=== PATIENT | female | born 1950 | race Caucasian/White ===

== ENCOUNTER → 2016-11-28 | Outpatient (CLI) | payer OTHER ==
[~2016-11-28] MED LIST: ACET160S78 PO; ACET1LIQ6 PO; ALBUAER2 INH; ALUM-30 PO; ALUMSUS PO; ARTISOL12 OPB; ASPCH81 NG; ASPCH81X PO; ASPI-390 PO; ATOR-24 PO; BENA PO; BISA10SU38 PR; BISM262S7 PO; BUSP15TA70 PO; CARAFATE PO; CRFL PO; DIPHEN PO; DULCOLAX SUPP RE; FOLI1TAB7 PO; FRS/40 PO; GUAI100S75 PO; LEVA1.255 INH; LEVO137T3 PO; LIDO PO; LORA-741 PO; LPR25 PO; LPT40 PO; MAALOX PO; METO25TA56 PO; MINTOX PO; MOMLX PO; OXYC1TAB3 PO; POLY1SOL6 OP; PRED20TA PO; PRLSR20 PO; RBTUDL5 PO; SIME80CH PO; SYN88 PO; VENL75CA73 PO; VNTHFA/IN INH; XPNINS125 NEB; ZNTT/150 PO; [UNRECOGNIZED DRUG - CODE] INH; [UNRECOGNIZED DRUG - CODE] NEB; [UNRECOGNIZED DRUG - OTHER] PO
[2016-11-28 09:05] LABS: THYROID STIMULATING HORMONE 3.5 uIu/ml (0.300-4.500)
== END ==
LOC: C.LABCC 08:30
PROVIDERS: ATTEND Internal Medicine
DX: E03.9 Hypothyroidism, unspecified (principal)

== ENCOUNTER → 2017-01-10 | Outpatient (CLI) | payer OTHER ==
[2017-01-10 09:21] LABS: THYROID STIMULATING HORMONE 0.879 uIu/ml (0.300-4.500)
== END ==
LOC: C.LABCC 08:11
PROVIDERS: ATTEND Internal Medicine
DX: E03.9 Hypothyroidism, unspecified (principal)

== ENCOUNTER → 2017-02-07 | Outpatient (CLI) | payer OTHER | LOC: C.LABCC 12:35 | PROVIDERS: ATTEND Internal Medicine | DX: R09.3 Abnormal sputum (principal) ==

== ENCOUNTER → 2017-02-23 | Outpatient (CLI) | payer OTHER ==
--- NOTE | 2017-02-23 09:21 | DIAGNOSTIC IMAGING REPORT ---
CT NECK WITHOUT INTRAVENOUS CONTRAST HISTORY: LARYNGEAL CANCER TECHNIQUE: Multiaxial CT images of the neck were performed without the use of intravenous contrast. COMPARISON STUDY: Neck CT 12/01/2008. FINDINGS: Near nondiagnostic evaluation of the neck due to the metallic artifact, motion artifact, and noncontrast examination. The patient is status post a laryngectomy. Multiple scattered metallic densities/surgical clips seen throughout the neck. No definite soft tissue masses or significant lymphadenopathy. There is a small plug at the tracheostomy site which is located between the soft tissues of proximal esophagus and roof of the tracheostomy. There is a potential small fistula between the tracheostomy and proximal esophagus due to this plug. No suspicious lytic or blastic osseous lesions. Mild mucosal thickening within the right max a sinus. The mastoid air cells are clear. There is a punctate calcified granuloma within the left lung apex. Emphysema. The visualized brain parenchyma is unremarkable. The orbits are unremarkable. Pterygopalatine fossa are well-maintained. Prevertebral soft tissues are normal in thickness. The parotid glands are symmetric. tube is IMPRESSION: 1. Near nondiagnostic evaluation of the neck due to the metallic artifact, motion artifact, noncontrast examination. However, no evidence for lymphadenopathy or soft tissue mass. 2. Status post laryngectomy. 3. There is a small plug at the roof of the proximal tracheostomy opening which is located between the soft tissues of the proximal esophagus and tracheostomy. 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 Clinical correlation recommended. Electronically signed by: Brennan Naik M.D. 02/23/2017 2:06 PM Dictated Date/Time: 02/23/2017 9:02 AM
== END | disposition home or self-care (01) ==
LOC: C.CTS 07:51
PROVIDERS: ATTEND Physician Assistant
DX: C32.9 Malignant neoplasm of larynx, unspecified (principal)

== ENCOUNTER → 2017-02-28 | Day surgery (SDC) | payer OTHER ==
--- NOTE | 2017-02-27 18:28 | HISTORY & PHYSICAL EXAMINATION ---
DATE OF ADMISSION: 02/28/2017 PRIMARY CARE PHYSICIAN: Lizandro Xiong. REASON FOR BRONCHOSCOPY: Persistent cough and abnormal CAT scan in the setting of history of laryngeal cancer. HISTORY OF PRESENT ILLNESS: A 66-year-old female followed in the office, was evaluated on 02/16/2017 for symptoms of increased cough, dyspnea, and blood from her stoma. The patient had initially been evaluated in the office in January 2008 following a history of pneumonia, diagnosis of COPD, and history of abnormal lung mass with hilar adenopathy on recent CAT scan. Bronchoscopy was performed in February 2008 with negative cytology. She had been following with her ENT physician, Dr. Chandra for tracheostomy care status post laryngotomy and radiation therapy secondary to squamous cell carcinoma of the larynx. The patient has undergone multiple bronchoscopies in the past. In March 2015, she was admitted with respiratory failure undergoing respiratory arrest requiring CPR and ICU stay with inpatient bronchoscopy and sputum positive for staph and group B strep. She was most recently admitted in late fall of 2015 with bronchoscopy notable for lavage of mucus plugs, laryngeal assist device as well as Luisa. In the outpatient office, the patient presented with a 1-2 week history of increased mucus production. She reported sputum was thick and green in nature and associated with increased dyspnea without wheeze or chest tightness. Additionally, she reported bright red blood in small quantities mixed with her sputum as well as pain and discomfort in her neck in the tissues surrounding her stoma. On 02/15/2017, she described intermittent episodes of diaphoresis, alternating with chills. She was prescribed doxycycline secondary to recent sputum culture on 02/09/2017, which was positive for MSSA staph. Chest x-ray from 02/02/2017 was unremarkable. She has not seen Dr. Chandra in quite some time. CT on 08/29/2016: Severe pulmonary emphysema Tracheomalacia. Lower lobe pulmonary airspace opacities with bilateral lower lobe air bronchograms. Barium swallow on 09/08/2016: Negative for reflux with moderate focal narrowing in the proximal esophagus, which was unchanged. PAST MEDICAL HISTORY: 1. Squamous cell carcinoma of the larynx, status post radiation and laryngectomy with Dr. Chandra on November 2008. 2. History of alcohol abuse. 3. COPD. 4. History of acute respiratory failure. 5. Hyperlipidemia. 6. Depression. 7. History of breast cancer status post surgery in 2005. 8. Hypothyroid. 9. History of right-sided pleural effusion. 10. Osteoarthritis. 11. Anemia. PAST SURGICAL HISTORY: 1. Bronchoscopy. 2. Laryngectomy. 3. section. 4. Radical neck dissection with tracheostomy. FAMILY HISTORY: 1. Hyperlipidemia. 2. Malignant neoplasm. SOCIAL HISTORY: 1. Former tobacco abuse. 2. Former alcohol abuse. CURRENT MEDICATIONS: 1. Aspirin 81 mg oral tablet: Take 1 tablet daily. 2. Saline solution 7%: Use 1 vial in the nebulizer daily as needed for congestion. 3. Levalbuterol hydrochloride 1.25 mg per 3 mL inhalation nebulizer solution: Inhale 1 unit dose every 6 hours as needed. 4. Spiriva 2.5 mcg/ACT inhalation aerosol solution: Inhale 2 puffs once daily. 5. Bisacodyl 10 mg rectal suppository: Use as directed. 6. Cepacol lozenge: Allow 1 lozenge dissolved slowly in mouth as directed. 7. Robitussin-AC at nighttime cough DM 12.5/30 mg per 10 mL oral liquid: Take 5 mL 4 times daily as directed. 8. Buspirone hydrochloride 10 mg oral tablet: Take 1 tablet 3 times daily. 9. Effexor XR 75 mg oral capsule extended release: Take 1 capsule twice daily. 10. Simethicone 180 mg oral capsule: Take 1 capsule as directed. 11. Ensure: Use as directed. 12. Folic acid 1 mg oral tablet: Take 1 tablet daily. 13. Atorvastatin calcium 40 mg oral tablet: Take 1 tablet daily. 14. Levothyroxine sodium 88 mcg oral tablet: Take 1 tablet daily. 15. Acetaminophen 160 mg per 5 mL oral liquid: Take 3 times daily as needed for pain. 16. Magic Mix Benadryl/Maalox/Xylocaine 1:1:1 compound swish and spit as needed. 17. Carafate suspension: 2 mL every 6 hours. 18. Furosemide 40 mg oral tablet, take 1 tablet daily. 19. Lipitor 40 mg tablet: Take 1 tablet daily. 20. Lopressor 50 mg oral tablet: Take 1 tablet daily. 21. Lorazepam 0.5 mg oral tablet: Take 1/2 tablet every 6 hours as needed for anxiety. 22. Metoprolol tartrate 25 mg oral tablet: Take 1 tablet twice daily. 23. Milk of magnesia 1200 mg per 50 mL oral suspension: Use as directed. 24. Omeprazole 20 mg oral capsule delayed release: Take 1 capsule daily. 25. Pepto-Bismol 262 mg per 50 mL oral suspension: Use as directed. 26. Prednisone 20 mg oral tablet: Take as directed. 27. Proventil HFA 108 mcg/ACT inhalation solution inhale 1-2 puffs every 4-6 hours as needed. 28. Ranitidine hydrochloride 450 mg oral tablet: Take 1 tablet twice daily. 29. Systane Ultra 0.4-0.3% ophthalmic solution: Use as directed. ALLERGIES: 1. FOSAMAX. 2. PENICILLINS. 3. SULFASALAZINE TABLET. PHYSICAL EXAMINATION: VITAL SIGNS: Height 5 feet, weight 102 pounds, temperature 98.5 degrees Fahrenheit, blood pressure 116/68 right upper extremity sitting, respiratory rate 23 respirations per minute, heart rate 86 beats per minute, and oxygen 91% on room air. CONSTITUTIONAL: Small stature female. No acute distress. HEAD: Positive facial symmetry. EYES: EOMI, PERRLA, no conjunctival injection, THROAT: Trachea is midline with tracheostomy without surrounding erythema or purulence. Still appears clean and dry without active bleeding. RESPIRATORY: Nonlabored respirations. Breath sounds are diminished bases. No rhonchi or wheeze. CARDIOVASCULAR: Regular rate and rhythm. No murmur appreciated. +2 radial pulses bilaterally. Less than 1 second capillary refill distally. MUSCULOSKELETAL AND EXTREMITIES: Moving and developed symmetrically without any peripheral edema or calf tenderness. NEUROLOGIC: Alert and oriented x3 with appropriate affect. REVIEW OF SYSTEMS: CONSTITUTIONAL: Positive for feeling poorly and chills, but otherwise negative. Denies fever or changes in weight. EYES: Negative. ENT: As noted in the HPI without any otalgia or nasal discharge. CARDIOVASCULAR: Denies chest pain, palpitations, or peripheral edema. RESPIRATORY: Positive for shortness of breath and cough as noted in the HPI without any wheeze. GASTROINTESTINAL: Negative. INTEGUMENTARY: Negative. ASSESSMENT AND PLAN: A 66-year-old female with history of tracheostomy, status post laryngeal cancer and history of recurrent pulmonary infection. 1. Staph respiratory pathogen in the past per sputum culture: Continue 3 additional days of doxycycline, but the patient was instructed to hold Carafate while on this antibiotic. 2. History of blood-tinged sputum: Likely secondary to irritation from methicillin-susceptible Staphylococcus aureus; however, the patient's history of concurrent pain and discomfort in neck is concerning. Will evaluate with bronchoscopy as well as CT soft tissue of the neck. 3. CT soft tissue of the neck was completed and interpreted by the radiologist. There was some concern as to an abnormality, which was difficult to appreciate secondary to artifact on the CAT scan. They did describe a small plug at the roof of the proximal tracheostomy opening located between the soft tissues of the proximal esophagus and the tracheostomy with the potential for tracheoesophageal fistula due to the small plug. This should be noted for her upcoming procedure to determine if any visualization of this abnormal area can be obtained. We will follow the patient in the office following procedure to review results. patient's history reviewed and agree with assessment plan. RAFAL
[2017-02-28] VITALS (15 sets, daily range): BP systolic 102–174; BP diastolic 68–94; PULSE 65–99; TEMP 36.8–37; O2SAT 93–100; Ht 167.6 cm; Wt 46.5 kg
[~2017-02-28] VITALS: Ht 167.6 cm; Wt 46.5 kg
[~2017-02-28] MED LIST changes: +FENTANYL CITRATE 100 MCG 2 ML CARP IV ONE; +FENTANYL CITRATE INJ 50 MCG/1 ML 2 ML VIAL IV ONE; +LIDOCAINE HCL 2% LOCAL 50ML VIAL INFIL ONE; +MIDAZOLAM HCL 1 MG/ML 2ML VIAL IV ONE; +MIDAZOLAM HCL 5 MG/ML 1 ML VIAL IV ONE; +NURSING VERBAL MED ORDER ONE
--- NOTE | 2017-02-28 07:30 | History & Physical Bridge Note ---
H&P Re-Evaluation Bridge Note: I have examined the patient, reviewed the History & Physical and in the interval since the performance of the History & Physical I have noted the following changes of clinical significance: No changes noted
--- NOTE | 2017-02-28 07:31 | Procedure Note ---
Pre-Mod Sedation Assessment General Date of Moderate Sedation: Feb 28, 2017. Review Cardiovascular: regular rate, rhythm, no edema, no gallop, no JVD, no murmur, normal peripheral pulses Abdomen: normal bowel sounds, non tender, soft, no organomegaly, no pulsatile mass, normal rectal exam, occult blood negative Lungs: chest non-tender, no respiratory distress, + accessory muscle use, + crackles Airway Class: IV Pre-Sedation Airway Assessment Oral Cavity: Dentures Able to Visualize Vocal Cords: No Short Thick Neck: No Hx of Sleep Apnea: No Smoking Status: Former Smoker Mallampati Classification: Class III ASA Classification: Class IV Procedure Planning Contraindications-for Mod Sed: None Yes Notes The planned sedation has been discussed with the patient and consent obtained. I have identified the patient, determined the appropriateness of sedation and have assessed the patient immediately prior to the procedure. All medicine(s) and interventions are by my order.
--- NOTE | 2017-02-28 07:31 | Procedure Note ---
Post-Moderate Sedation Plan General Date of Moderate Sedation Feb 28, 2017. Review - Discharge Plan Post Moderate Sedation Plan: On clinical assessment, the patient appears to have tolerated the conscious sedation without complications. Patient is recovering as anticipated. Patient will continue to be monitored by nursing and may be discharged when conscious sedation discharge criteria are met.
--- NOTE | 2017-02-28 09:11 | Bronchoscopy Procedure Note ---
Bronchoscopy Procedure Note Procedure: Bronchoscopy, conscious sedation, Consent: Obtained through the patient placed into the chart Preprocedural diagnosis: Postprocedural diagnosis: Start time: 934 End time: 951 Total time: 17 min Analgesia: 2% liquid lidocaine: Via nebulizer 4% gel lidocaine: Via right naris 2% liquid lidocaine: Via bronchoscopy Sedation: Versed IV: 4 mg Fentanyl IV: 75 g Procedure: The Olympus video bronchoscope was used for this procedure and initially passed down through the tracheal-ostomy then the right naris Tracheal-Ostomy: WNL, no signs of active infection Laryngeal-esophageal Assist Devices: covered in thick mucus secretions easily cleared Right naris/posterior naris/posterior oropharynx: Anatomically within normal limits Glottis: surgically removed with tracheal entrance closed Tracheal-Esophageal Fistula: no signs of infection Esophagus: notable oral secretions Trachea/Nickie: Below the esophageal-tracheal fistula WNL Right bronchial tree: Right mainstem bronchus: Anatomically within normal limits Right upper lobe: Anatomically within normal limits Bronchus intermedius: Anatomically within normal limits Right middle lobe: Anatomically within normal limits Right lower lobe: Anatomically within normal limits Findings: No significant findings noted Left bronchial tree: Left mainstem bronchus: Anatomically within normal limits Left upper lobe: Anatomically within normal limits Lingula: Anatomically within normal limits Left lower lobe: Anatomically within normal limits Findings: No significant findings noted Bronchial alveolar lavage: 60cc lavage of the NURY Complications: None Follow-up: With Arleen Sarmiento in the [facility]
--- NOTE | 2017-02-28 10:25 | Discharge Instructions ---
Discharge Instructions Date of Service Feb 28, 2017. Admission Reason for Admission: Laryngeal Cancer; Staph Infection Discharge Discharge Diagnosis / Problem: Chronic Cough Discharge Goals Goal(s): Improve function, Diagnostic testing Activity Recommendations Activity Limitations: resume your previous activity . Instructions / Follow-Up Instructions / Follow-Up Follow-Up with Arleen Sarmiento in the Pulmonary [facility] Current Hospital Diet Patient's current hospital diet: Discharge Diet Recommended Diet: Regular Diet Pending Studies Studies pending at discharge: yes List of pending studies: Microbiology of bronchial lavage fluid Medical Emergencies . Who to Call and When: Medical Emergencies: If at any time you feel your situation is an emergency, please call 911 immediately. . Non-Emergent Contact Non-Emergency issues call your: Piece Cutter Call Non-Emergent contact if: temperature is above 101.5 . . "Provider Documentation" section prepared by Mike Delatorre. . VTE Core Measure Inpt VTE Proph given/why not?: Treatment not indicated
== END | disposition home or self-care (01) ==
LOC: C.ACU 07:24
PROVIDERS: ATTEND Surgery
DX: R05 Cough (principal); J39.8 Other specified diseases of upper respiratory tract; J43.9 Emphysema, unspecified; E78.5 Hyperlipidemia, unspecified; F32.9 Major depressive disorder, single episode, unspecified; M19.90 Unspecified osteoarthritis, unspecified site; E03.9 Hypothyroidism, unspecified; Z92.3 Personal history of irradiation; Z85.21 Personal history of malignant neoplasm of larynx; Z87.01 Personal history of pneumonia (recurrent); Z85.3 Personal history of malignant neoplasm of breast; Z79.82 Long term (current) use of aspirin; Z87.891 Personal history of nicotine dependence; Z93.0 Tracheostomy status

== ENCOUNTER → 2017-04-12 | Outpatient (CLI) | payer OTHER ==
[~2017-04-12] MED LIST changes: -ACET1LIQ6 PO; -ALBUAER2 INH; -ALUMSUS PO; -ASPCH81 NG; -BENA PO; -CARAFATE PO; -DIPHEN PO; -DULCOLAX SUPP RE; -FENTANYL CITRATE 100 MCG 2 ML CARP IV ONE; -FENTANYL CITRATE INJ 50 MCG/1 ML 2 ML VIAL IV ONE; -GUAI100S75 PO; -LIDO PO; -LIDOCAINE HCL 2% LOCAL 50ML VIAL INFIL ONE; -LPR25 PO; -LPT40 PO; -MAALOX PO; -MIDAZOLAM HCL 1 MG/ML 2ML VIAL IV ONE; -MIDAZOLAM HCL 5 MG/ML 1 ML VIAL IV ONE; -MINTOX PO; -NURSING VERBAL MED ORDER ONE; -SYN88 PO; -[UNRECOGNIZED DRUG - CODE] NEB
[2017-04-12 10:37] LABS: THYROID STIMULATING HORMONE 4.22 uIu/ml (0.300-4.500)
--- NOTE | 2017-04-14 15:29 | CODING QUERY NO DIAGNOSIS ---
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 Please assist us with providing a diagnosis/symptom for the test(s) below: A diagnosis/symptom was not documented on your Order. A valid diagnosis/symptom is required to bill all insurances. Please remember that we are unable to code a diagnosis of rule out, probable, possible, questionable, or suspected. Tests that require a diagnosis: * LIPID PROFILE FASTING DIAGNOSIS: * T4 FREE DIAGNOSIS: * TSH DIAGNOSIS: * VITAMIN D, 25-HYDROXY DIAGNOSIS: Provider Signature: Date: Thank you Arleen Vaughn [facility] Information Management Once completed, please kindly fax back to [phone] For questions please call [phone]
--- NOTE | 2017-04-20 13:03 | CODING QUERY MEDICAL NECESSITY ---
SUPPORTING DIAGNOSIS NEEDED Dr. Lennon, A supporting diagnosis is required for the test/procedure performed on this patient in order for us to be reimbursed by the patient's insurance. Please provide a supporting diagnosis for the following test/procedure listed below next to the test name along with your signature. *If there is no additional diagnosis for this patient that would support the following test/procedure please document that below next to the test/procedure. Test(s)/Procedure(s) that require a supporting diagnosis: * ([id number]) VITAMIN D ASSAY DIAGNOSIS: DATE OF SERVICE: 04/12/17 Provider Signature: Date: Thank you Misbah Álvarez [facility] Information Management Once completed, please kindly fax back to [phone] For questions please call [phone]
== END ==
LOC: C.LABCC 08:35
PROVIDERS: ATTEND Internal Medicine
DX: E78.5 Hyperlipidemia, unspecified (principal); E03.9 Hypothyroidism, unspecified; E73.9 Lactose intolerance, unspecified; E55.9 Vitamin D deficiency, unspecified

== ENCOUNTER 2017-04-25 22:18 | Emergency (ER) | payer OTHER ==
[~2017-04-25] VITALS: Ht 152.4 cm; Wt 47.7 kg
[2017-04-25 22:22] VITALS: TEMP 37.3; Ht 152.4 cm; Wt 47.7 kg
--- NOTE | 2017-04-25 23:47 | EMERGENCY ROOM VISIT NOTE ---
History Report prepared by Timoteo: Epifanio Yuan Under the Supervision of: Dr. Diann Schreiber D.O. First contact with patient: 23:08 Chief Complaint: OTHER COMPLAINT Stated Complaint: STOMA ISSUES History of Present Illness The patient is a 67 year old female who presents to the Emergency Room via BLS from [facility] with complaints of speaking valve malfunction occurring tonight. The patient reports coughing too hard and the speaking valve in her tracheostomy stoma went in. She reports throat pain. She has worsening pain with swallowing. She currently rates a pain intensity of 8/10. She is afraid that she is going to swallow it. She was given 0.5 mg Ativan by EMS. She denies any history of similar symptoms. She reports that the speaking valve is changed every 6 months. It is due to be changed on June 06. The patient denies chest pain, abdominal pain, or any other complaints. Source of History: patient Onset: tonight Position: throat Symptom Intensity: 8/10 Quality: other (speaking valve malfunction) Modifying Factors (Relieving): other (0.5 mg Ativan) Associated Symptoms: No chest pain, No abdominal pain Review of Systems The patient describes discomfort within her stoma and pain with swallowing. She denies other symptoms. Past Medical & Surgical Medical Problems: (1) Anxiety (2) Chest pain (3) COPD (chronic obstructive pulmonary disease) (4) COPD exacerbation (5) GERD (gastroesophageal reflux disease) (6) Laryngeal cancer Family History Patient reports no known family medical history. Social History Smoking Status: Former Smoker Drug Use: none Marital Status: single Housing Status: retirement Occupation Status: unemployed Current/Historical Medications Scheduled Acetaminophen (Tylenol Children's Susp), 20.3 MG PO TID Aspirin (Aspirin Chewable), 81 MG PO QAM Atorvastatin (Lipitor), 40 MG PO HS Buspirone Hcl (Buspar), 15 MG PO TID Folic Acid (Folvite), 1 MG PO QAM Furosemide (Lasix), 40 MG PO QAM Guaifenesin (Robitussin), 5 ML PO QID Levalbuterol (Levalbuterol HCl), 3 ML NEB Q6 Levothyroxine Sodium (Levothyroxine Sodium), 137 MCG PO QAM Lorazepam (Ativan), 0.25 MG PO BID Metoprolol Tartrate (Lopressor) (Lopressor), 25 MG PO BID Omeprazole (Prilosec), 20 MG PO DAILY Polyethylene Glycol-Propylene (Systane Ultra), 1 DROPS OP BID Prednisone (Prednisone), 0 PO DAILY Ranitidine (Zantac), 150 MG PO BID Simethicone (Gas-X), 80 MG PO BID Sucralfate (Carafate), 10 ML PO BID Venlafaxine Hcl (Venlafaxine Extended Rel), 75 MG PO BID [Majic Swish & Spit], 1 DOSE PO QID Scheduled PRN Acetaminophen (Tylenol Children's Susp), 20.3 ML PO Q12 PRN for Pain or Fever Albuterol Hfa (Ventolin Hfa), 2 PUFFS INH QID PRN for BRONCHOSPASMS Alum & Mag Hydrox-Simethicone (Mylanta), 30 ML PO Q6H PRN for ACID REFLUX Artificial Tear Solution (Artificial Tears), 1 DROPS OPB Q6 PRN for DRYNESS Bylcjar-Yjfnsmimhygsr-Eayoxfhk (Excedrin Migraine), 2 TABS PO DAILY PRN for Migraine Bisacodyl (Dulcolax), 1 SUPP NJ DAILY PRN for Constipation Bismuth Subsalicylate (Pepto-Bismol), 30 ML PO Q6 PRN for NAUSEA/DIARRHEA Levalbuterol Hcl (Levalbuterol), 1.25 MG INH Q6H PRN for Wheezing Lorazepam (Ativan), 0.25 MG PO DIRECTED PRN for PRIOR TO TRIP OUTSIDE Magnesium Hydroxide (Milk of Magnesia), 30 ML PO DAILY PRN for Constipation Oxycodone Ir (Roxicodone Ir), 1 TAB PO Q6 PRN for Severe Pain Sodium Chloride (Inhalant) (Simply Saline Baby), 3 ML INH Q6H PRN for SECRETIONS Allergies Coded Allergies: Alendronate (Verified Allergy, Unknown, UNK, 03/07/17) Penicillin V (Verified Allergy, Unknown, UNK, 03/07/17) Sulfa Antibiotics (Verified Allergy, Unknown, UNKNOWN, 03/07/17) Morphine (Verified Adverse Reaction, Mild, itching, 03/07/17) Physical Exam Vital Signs Date Time Temp Pulse Resp B/P (MAP) Pulse Ox O2 Delivery O2 Flow Rate FiO2 04/26/17 01:06 87 17 99 Free Flow/Blowby 10.0 04/26/17 01:01 157/98 04/26/17 00:36 88 24 100 Free Flow/Blowby 10.0 04/26/17 00:31 154/99 04/26/17 00:06 80 22 100 Free Flow/Blowby 10.0 04/26/17 00:01 143/89 04/25/17 23:36 86 20 99 Free Flow/Blowby 10.0 04/25/17 23:31 180/123 04/25/17 23:18 91 17 98 Free Flow/Blowby 10.0 04/25/17 23:01 153/91 04/25/17 22:48 90 20 100 Free Flow/Blowby 10.0 04/25/17 22:31 160/129 04/25/17 22:29 92 04/25/17 22:25 150/95 04/25/17 22:22 37.3 91 22 150/95 98 Mask 6.0 Free Flow/Blowby Physical Exam Neck: Supple; no JVD, nuchal rigidity, cervical lymphadenopathy. Speech valve is visible in the stoma. Medical Decision & Procedures Medications Administered Medications (Trade) Dose Ordered Sig/Beverly Route Start Time Stop Time Status Last Admin Dose Admin Lorazepam (Ativan Tab) 0.5 mg STK-MED ONCE .ROUTE 04/26/17 00:48 04/26/17 00:49 DC 04/26/17 00:49 0.5 MG ED Course 2308: Past medical records reviewed. The patient was evaluated in room C07. A complete history and physical exam was performed. 2329: I discussed the patient's case with the respiratory therapist. He evaluated the patient in the Emergency Room. 0010: I discussed the patient's case with Dr. Cagle, oral and maxillofacial surgeon with [facility] He recommended taking the speaking valve out through the stoma. They will see her in the office tomorrow to replace it. 0029: I removed the speaking valve with hemostats. This occurred without incident. I discussed findings and results with the patient. She verbalized agreement of the treatment plan. The patient was discharged home. Medical Decision This patient presents to the Emergency Room with the chief complaint of speaking valve malfunction. I attest that I have personally reviewed the patient's current medication list. Patient was found to have an elevated blood pressure and was referred to their primary doctor for recheck and further treatment. The patient had dislodged her speech valve within her stoma. I was able to remove the distal lodged valve with a pair of hemostats. She will follow-up tomorrow with Dr. Chandra to have it replaced. Consults Time Called: [phone] Consulting Physician: respiratory therapist Returned Call: [phone] I discussed the patient's case with the respiratory therapist. He evaluated the patient in the Emergency Room. Additional Consults: Time Called: [phone] Consulted Physician: Dr. Cagle, oral and maxillofacial surgeon with [facility] Returned Call: [phone] Additional Comments: I discussed the patient's case with Dr. Cagle, oral and maxillofacial surgeon with [facility] He recommended taking the speaking valve out through the stoma. He will put in a new one tomorrow. Impression Primary Impression: Dislodged speaking valve Scribe Attestation The scribe's documentation has been prepared under my direction and personally reviewed by me in its entirety. I confirm that the note above accurately reflects all work, treatment, procedures, and medical decision making performed by me. Departure Information Dispostion Home / Self-Care Referrals [place] ([place] Forms HOME CARE DOCUMENTATION FORM, IMPORTANT VISIT INFORMATION, WORK / SCHOOL INSTRUCTIONS Patient Instructions [facility] Additional Instructions Do not eat or drink until follow up with Dr. Chandra. Call his office at 8am for an appointment to replace speaking valve in the morning.
[2017-04-26] MEDS ORDERED: LORAZEPAM 0.5 MG TAB ONE (00:48)
[2017-04-26 01:01] VITALS: BP 157/98
[2017-04-26 01:06] VITALS: PULSE 87; O2SAT 99
== END 2017-04-26 01:30 | disposition home or self-care (01) ==
LOC: EDBD 22:18 → C.EDC 22:22
DX: J95.03 Malfunction of tracheostomy stoma (principal); F41.9 Anxiety disorder, unspecified; J44.9 Chronic obstructive pulmonary disease, unspecified; K21.9 Gastro-esophageal reflux disease without esophagitis; Z85.21 Personal history of malignant neoplasm of larynx; Z87.891 Personal history of nicotine dependence; Z79.82 Long term (current) use of aspirin; Z79.899 Other long term (current) drug therapy; Z88.0 Allergy status to penicillin; Z88.2 Allergy status to sulfonamides; Z88.5 Allergy status to narcotic agent; Z88.8 Allergy status to other drugs, medicaments and biological substances

== ENCOUNTER → 2017-06-14 | Outpatient (CLI) | payer OTHER ==
[2017-06-14 08:42] LABS: BASO % 0.2 %; BASO ABS # 0.01 K/uL (0-0.2); COMPLETE YES; EOS % 0.2 %; HEMATOCRIT 34.8 % (37-47); IG% 0.2 %; LYMPH % 24.1 %; LYMPH ABS # 1.48 K/uL (1.2-3.4); MEAN CELL VOLUME 82.5 fL (80-100); MEAN CORPUSCULAR HEMOGLOBIN 25.6 pg (25-34); MEAN PLATELET VOLUME 9.9 fL (7.4-10.4); MONO % 7.2 %; NEUT % 68.1 %; PLATELET COUNT 219 K/uL (130-400); RED BLOOD COUNT 4.22 M/uL (4.2-5.4); WHITE BLOOD COUNT 6.14 K/uL (4.8-10.8)
[2017-06-14 08:48] LABS: BLOOD UREA NITROGEN 15 mg/dl (7-18); BUN/CREATININE RATIO 15.1 (10-20); CALCIUM 9.6 mg/dl (8.5-10.1); CARBON DIOXIDE 27 mmol/L (21-32); CHLORIDE 108 mmol/L (98-107); GLUCOSE 102 mg/dl (70-99); POTASSIUM 3.7 mmol/L (3.5-5.1); SODIUM 142 mmol/L (136-145)
[2017-06-14 08:59] LABS: ALB/GLOB RATIO 0.9 (0.9-2); ALKALINE PHOSPHATASE 101 U/L (45-117); ALT/SGPT 14 U/L (12-78); AST/SGOT 8 U/L (15-37); THYROID STIMULATING HORMONE 0.126 uIu/ml (0.300-4.500)
== END ==
LOC: C.LABCC 07:51
PROVIDERS: ATTEND Internal Medicine
DX: E55.9 Vitamin D deficiency, unspecified (principal); R10.9 Unspecified abdominal pain; R05 Cough

== ENCOUNTER → 2017-06-15 | Outpatient (CLI) | payer OTHER ==
[2017-06-15 18:30] LABS: MANUAL MICROSCOPIC REQUIRED? NO; REVIEW REQ? NO; URINE APPEARANCE CLEAR (CLEAR); URINE BILIRUBIN NEG (NEG); URINE COLOR YELLOW; URINE NITRITE NEG (NEG); URINE PH 7.5 (4.5-7.5); URINE SPECIFIC GRAVITY 1.017 (1.000-1.030); UROBILINOGEN NEG (NEG)
== END ==
LOC: C.LABCC 17:25
PROVIDERS: ATTEND Internal Medicine
DX: R10.9 Unspecified abdominal pain (principal); R53.83 Other fatigue

== ENCOUNTER → 2017-06-18 | Outpatient (CLI) | payer OTHER ==
[2017-06-18 10:21] LABS: BLOOD UREA NITROGEN 11 mg/dl (7-18); BUN/CREATININE RATIO 11.1 (10-20); CALCIUM 8.7 mg/dl (8.5-10.1); CARBON DIOXIDE 27 mmol/L (21-32); CHLORIDE 108 mmol/L (98-107); GLUCOSE 81 mg/dl (70-99); SODIUM 144 mmol/L (136-145)
== END ==
LOC: C.LABCC 08:44
PROVIDERS: ATTEND Internal Medicine
DX: J44.9 Chronic obstructive pulmonary disease, unspecified (principal)

== ENCOUNTER → 2017-06-18 | Outpatient (CLI) | payer OTHER ==
[~2017-06-18] MED LIST changes: +OPTIRAY 320 IV PRN
--- NOTE | 2017-06-18 14:47 | DIAGNOSTIC IMAGING REPORT ---
CT OF THE CHEST WITH IV CONTRAST CLINICAL HISTORY: ABNORMAL CHEST XRAY COMPARISON STUDY: 08/29/2016, chest x-ray dated 03/07/2017 , CT scan of the abdomen pelvis dated 07/03/2014 TECHNIQUE: Following the IV administration of 93 mL of Optiray-320, CT of the thorax was performed from the thoracic inlet to the lung bases. Images are reviewed in the axial, sagittal, and coronal planes. IV contrast was administered without complication. A dose lowering technique was utilized adhering to the principles of ALARA. CT DOSE: 201.54 mGy.cm FINDINGS: Thyroid: No pathological thyroid masses are visualized Thoracic aorta: The thoracic aorta is normal in course and caliber, noting standard 3-vessel arch anatomy. No aneurysm or dissection is seen. Pulmonary vasculature: The pulmonary trunk is normal in caliber. There are no central filling defects identified to suggest pulmonary embolus. Note that this examination was not protocoled for the evaluation of pulmonary emboli. HEART: The heart is normal in size and configuration, without pericardial effusion. Lungs and pleural spaces: There is severe pulmonary emphysema. There is lower lobe bronchial wall thickening and mucous plugging. There is no focal pulmonary consolidation to indicate a pneumonia. There is a solid 4.5 mm right lower lobe pulmonary nodule. There is an 8 mm right lower lobe pulmonary nodule containing a central calcification likely representing a postinflammatory granuloma. There is a tracheostomy tube present Mediastinum: There is no evidence of pathologic mediastinal adenopathy Tracy: Hilar lymph nodes are the upper limits of normal in size Axilla: There is no evidence of pathologic axillary lymphadenopathy Upper abdomen: There is a stable 22 mm hypodense lesion within the right hepatic lobe. There is stable innumerable coalescent splenic nodules. Skeletal structures: There are no lytic or blastic osseous lesions. IMPRESSION: 1. Stable 22 mm right lobe hepatic mass, likely representing a hemangioma 2. Stable innumerable coalescent splenic nodules 3. Severe emphysema 4. Lower lobe bronchial wall thickening and mucous plugging 5. Stable 8 mm right lower lobe granuloma 6. 4.5 mm right lower lobe pulmonary nodule. This area was obscured on the prior CTs. Electronically signed by: Negro Benavides M.D. 06/18/2017 2:46 PM Dictated Date/Time: 06/18/2017 2:36 PM
== END | disposition home or self-care (01) ==
LOC: C.CTS 13:19
PROVIDERS: ATTEND Internal Medicine
DX: R93.8 Abnormal findings on diagnostic imaging of other specified body structures (principal); R16.0 Hepatomegaly, not elsewhere classified; J43.9 Emphysema, unspecified; J84.10 Pulmonary fibrosis, unspecified; R91.1 Solitary pulmonary nodule; J44.9 Chronic obstructive pulmonary disease, unspecified

== ENCOUNTER → 2017-07-17 | Outpatient (CLI) | payer OTHER ==
[~2017-07-17] MED LIST changes: -OPTIRAY 320 IV PRN
== END ==
LOC: C.LABCC 11:26
PROVIDERS: ATTEND Internal Medicine
DX: E03.9 Hypothyroidism, unspecified (principal)

== ENCOUNTER → 2017-07-18 | Outpatient (CLI) | payer OTHER | LOC: C.LABCC 08:05 | PROVIDERS: ATTEND Internal Medicine | DX: E03.9 Hypothyroidism, unspecified (principal) ==

== ENCOUNTER → 2017-08-01 | Outpatient (CLI) | payer OTHER | LOC: C.LABCC 08:03 | PROVIDERS: ATTEND Internal Medicine | DX: E03.9 Hypothyroidism, unspecified (principal) ==

== ENCOUNTER → 2017-08-09 | Outpatient (CLI) | payer OTHER ==
--- NOTE | 2017-08-09 13:38 | DIAGNOSTIC IMAGING REPORT ---
(CHEST) THORAX WITHOUT CLINICAL HISTORY: R91.1 pulmonary nodule. Follow-up study. COMPARISON STUDY: 06/18/2017 CT DOSE: 253.70 mGycm TECHNIQUE: CT of the thorax was performed from the thoracic inlet to the lung bases. Images are reviewed in the axial, sagittal, and coronal planes. IV contrast was not administered for this examination. A dose lowering technique was utilized adhering to the principles of ALARA. FINDINGS: Thyroid: Imaged portions of the thyroid gland are normal in appearance. Thoracic aorta: The thoracic aorta is normal in course and caliber, noting standard 3 vessel arch anatomy. Heart: The heart is normal in size and configuration, without pericardial effusion. Lungs and pleural spaces: There is pulmonary emphysema. There are patchy bibasal airspace opacities, similar to the prior study and likely atelectatic. There is a 9 mm solid pulmonary nodule within the superior segment of the right lower lobe. This contains a central calcification and is likely postinflammatory. Just inferior to this nodule is a bilobed solid 5 mm pulmonary nodule. There is a tracheostomy tube present. Mediastinum: There is no evidence of pathologic adenopathy. 3 tracheal lymph nodes are the upper limits of normal in size. Tracy: There is no evidence of pathologic hilar adenopathy given the limitations of a noncontrast study Axilla: There is no evidence of pathologic axillary lymphadenopathy Upper abdomen: There is a 24 mm hypodense lesion within the right hepatic lobe, similar in size to the prior study Skeletal structures: There are no lytic or blastic osseous lesions. IMPRESSION: 1. Pulmonary emphysema 2. Persistent lower lobe bronchial wall thickening and mucous plugging 3. Lower lobe airspace opacities likely atelectatic 4. 9 mm right lower lobe pulmonary nodule containing a central calcification. This is likely postinflammatory 5. Stable bilobed 5 mm right lower lobe pulmonary nodule 6. 24 mm hypodense lesion within the right hepatic lobe, similar in size to the preceding study Electronically signed by: Negro Benavides M.D. 08/09/2017 1:36 PM Dictated Date/Time: 08/09/2017 1:31 PM
== END | disposition home or self-care (01) ==
LOC: C.CTS 13:04
PROVIDERS: ATTEND Physician Assistant
DX: R91.1 Solitary pulmonary nodule (principal); J43.9 Emphysema, unspecified; J98.09 Other diseases of bronchus, not elsewhere classified; J98.4 Other disorders of lung; K76.9 Liver disease, unspecified

== ENCOUNTER → 2017-10-13 | Outpatient (CLI) | payer OTHER ==
[~2017-10-13] MED LIST changes: -FOLI1TAB7 PO; +FOLI1TAB8 PO; -PRED20TA PO
== END ==
LOC: C.LABCC 10:18
PROVIDERS: ATTEND Internal Medicine
DX: R09.3 Abnormal sputum (principal)

== ENCOUNTER → 2017-12-11 | Outpatient (CLI) | payer OTHER | LOC: C.LABCC 07:54 | PROVIDERS: ATTEND Internal Medicine | DX: E03.9 Hypothyroidism, unspecified (principal) ==

== ENCOUNTER → 2018-01-23 | Outpatient (CLI) | payer OTHER ==
[~2018-01-23] MED LIST changes: +RANI150T85 PO; -ZNTT/150 PO
== END ==
LOC: C.LABCC 09:44
PROVIDERS: ATTEND Internal Medicine
DX: E03.9 Hypothyroidism, unspecified (principal)

== ENCOUNTER → 2018-02-12 | Outpatient (CLI) | payer OTHER ==
--- NOTE | 2018-02-12 14:40 | DIAGNOSTIC IMAGING REPORT ---
CHEST 2 VIEWS ROUTINE CLINICAL HISTORY: R05 [id number] COMPARISON STUDY: 03/07/2017 FINDINGS: The cardiac and mediastinal contours remain stable. Multiple surgical clips are visualized at the base of the neck and upper mediastinum. There is mild elevation left hemidiaphragm. There is no failure. There is no focal pulmonary consolidation. There is mild chronic interstitial thickening. There is underlying pulmonary emphysema.[ IMPRESSION: Pulmonary emphysema. No acute findings. Electronically signed by: Negro Benavides M.D. 02/12/2018 2:38 PM Dictated Date/Time: 02/12/2018 2:37 PM
== END | disposition home or self-care (01) ==
LOC: C.RAD1850 14:25
PROVIDERS: ATTEND Physician Assistant
DX: R05 Cough (principal)

== ENCOUNTER → 2018-03-07 | Outpatient (CLI) | payer OTHER | LOC: C.LABCC 07:51 | PROVIDERS: ATTEND Internal Medicine | DX: E03.9 Hypothyroidism, unspecified (principal) ==

== ENCOUNTER 2018-03-31 20:17 | Emergency (ER) | payer OTHER ==
[~2018-03-31] VITALS: Ht 152.4 cm; Wt 47.4 kg
[~2018-03-31 20:17] MED LIST changes: -LEVA1.255 INH; +LEVA1.255 NEB; -POLY1SOL6 OP; +POLY1SOL6 OPB; -[UNRECOGNIZED DRUG - CODE] INH; +[UNRECOGNIZED DRUG - CODE] NEB
[2018-03-31 20:26] VITALS: O2SAT 96; Ht 152.4 cm; Wt 47.4 kg
[2018-03-31] MEDS ORDERED: ALBUT/IPRATROP 3MG/0.5MG NEB 3 ML VIAL INH STA (20:41)
--- NOTE | 2018-03-31 21:25 | DIAGNOSTIC IMAGING REPORT ---
CHEST ONE VIEW PORTABLE HISTORY: EVALUATE RESPIRATORY DISTRESS.DYSPNEA COMPARISON: Chest 02/12/2018. FINDINGS: The lungs are hyperexpanded with apical predominant emphysematous changes. Patchy/linear density at the right lung base which is new from the prior study. Mild interstitial thickening at the lung bases is likely due to vascular crowding from the pulmonary edema. Otherwise, the left lung is clear. Surgical clips are seen overlying the lower neck. The heart is normal in size. No pleural effusions. No pneumothorax. IMPRESSION: 1. Emphysema. 2. New patchy/linear density within the base the right lower lobe. This may represent a pneumonia or atelectasis. Electronically signed by: Brennan Naik M.D. 03/31/2018 9:24 PM Dictated Date/Time: 03/31/2018 9:22 PM
[2018-03-31 21:33] LABS: BASO % 0.1 %; BASO ABS # 0.01 K/uL (0-0.2); EOS % 3.3 %; EOS ABS # 0.29 K/uL (0-0.5); HEMATOCRIT 36.6 % (37-47); HEMOGLOBIN 11.3 g/dL (12.0-16.0); IG# 0.02 K/uL (0.00-0.02); LYMPH % 25.1 %; LYMPH ABS # 2.18 K/uL (1.2-3.4); MEAN CELL VOLUME 80.4 fL (80-100); MEAN CORPUSCULAR HEMOGLOBIN 24.8 pg (25-34); MEAN CORPUSCULAR HGB CONC 30.9 g/dl (32-36); MEAN PLATELET VOLUME 9.4 fL (7.4-10.4); MONO % 6.9 %; NEUT % 64.4 %; NEUT ABS # 5.59 K/uL (1.4-6.5); PLATELET COUNT 233 K/uL (130-400); RED CELL DISTRIBUTION WIDTH CV 15.9 % (11.5-14.5); WHITE BLOOD COUNT 8.69 K/uL (4.8-10.8)
[2018-03-31] MEDS ORDERED: CEFEPIME IV 2,000 MG in DEXTROSE 5% 100ML 100 ML IV STA (21:40)
[2018-03-31] MEDS ORDERED: ACET160S3 PO (21:44)
[2018-03-31] MEDS ORDERED: ACET1SUS42 PO (21:44)
[2018-03-31] MEDS ORDERED: SODIUM CHLORIDE NEB (21:44)
[2018-03-31] MEDS ORDERED: OXGN MS (21:44)
[2018-03-31] MEDS ORDERED: PRNJ PO (21:44)
[2018-03-31] MEDS ORDERED: OXGN (21:44)
[2018-03-31] MEDS ORDERED: ALBINS/ NEB ×2 (21:47→21:51)
[2018-03-31] MEDS ORDERED: ALUM1SUS PO (21:51)
[2018-03-31] MEDS ORDERED: [UNRECOGNIZED DRUG - CODE] PO (21:54)
[2018-03-31 21:57] LABS: ALBUMIN 3.6 gm/dl (3.4-5.0); ALKALINE PHOSPHATASE 86 U/L (45-117); ALT/SGPT 35 U/L (12-78); AST/SGOT 30 U/L (15-37); BLOOD UREA NITROGEN 14 mg/dl (7-18); CALCIUM 8.8 mg/dl (8.5-10.1); CARBON DIOXIDE 27 mmol/L (21-32); CREATININE 0.85 mg/dl (0.60-1.20); GLUCOSE 93 mg/dl (70-99); POTASSIUM 3.6 mmol/L (3.5-5.1); SODIUM 140 mmol/L (136-145); TOTAL PROTEIN 7.1 gm/dl (6.4-8.2)
[2018-03-31] MEDS ORDERED: BENZ10LO2 PEG (22:03)
[2018-03-31] MEDS ORDERED: LOPE-5 PEG (22:03)
[2018-03-31] MEDS ORDERED: SODIENE PR (22:03)
[2018-03-31] MEDS ORDERED: MAGIC1 PO (22:07)
[2018-03-31] MEDS ORDERED: LEVO100T7 PO (22:07)
[2018-03-31] MEDS ORDERED: SIME1CHW14 PO (22:09)
[2018-03-31] MEDS ORDERED: CHOL20007 PO (22:14)
[2018-03-31] MEDS ORDERED: ACETAMINOPHEN 325 MG TAB PO STA (22:21)
--- NOTE | 2018-03-31 22:49 | EMERGENCY ROOM VISIT NOTE ---
History Report prepared by Timoteo: Kamini Parrish Under the Supervision of: Dr. Kam Cox M.D. First contact with patient: 20:36 Chief Complaint: OTHER COMPLAINT Stated Complaint: TRACHEA ISSUES History of Present Illness The patient is a 67 year old female who presents to the Emergency Room with complaints of an episode of leakage from her tracheostomy starting 3 days ago to a week ago. The patient states that she has liquid come from her tracheostomy each time she coughs. The patient complains of shortness of breath for 3 days. She notes that she sometimes has choking spells when she eats. The patient denies a fever and vomiting. Nursing staff notes that the patient was given 0.5 of Ativan by EMS on the way in because she was anxious and she notes that the patient caries a long history of anxiety. HPI and ROS limited secondary to patient's difficulty with speech. Source of History: patient, nursing staff History Limited By: other (difficulty with speech) Onset: 3 days to a week ago Position: throat Quality: other (tracheostomy leakage) Timing: other (episode) Associated Symptoms: + cough, + SOB, No fevers, No vomiting Review of Systems HPI and ROS limited secondary to patient's difficulty with speech. Past Medical & Surgical Medical Problems: (1) Anxiety (2) Chest pain (3) COPD (chronic obstructive pulmonary disease) (4) COPD exacerbation (5) GERD (gastroesophageal reflux disease) (6) Laryngeal cancer (7) Tracheostomy present Family History Patient reports no known family medical history. Social History Smoking Status: Former Smoker Drug Use: none Marital Status: single Housing Status: prison Occupation Status: unemployed Current/Historical Medications Scheduled Acetaminophen (Acetaminophen), 650 MG PO TID Albuterol Sulf (Proventil 0.083% 2.5MG/3ML), 2.5 MG NEB QID Aspirin (Aspirin Chewable), 81 MG PO QAM Atorvastatin (Lipitor), 40 MG PO HS Buspirone Hcl (Buspar), 15 MG PO TID Cholecalciferol (Vitamin D3), 2,000 INTER.UNIT PO DAILY Diphenhy/Alum/Mag/Sucralfa (Magic Swizzle - Diphenhy/Alum/Mag/Sucralfa), 20 ML PO QID Doxycycline Hyclate (Vibramycin), 100 MG PO BID Folic Acid (Folvite), 1 MG PO QAM Furosemide (Lasix), 40 MG PO QAM Guaifenesin (Robitussin), 5 ML PO QID Home O2 Therapy (Oxygen), 6 LITERS NA UD Levothyroxine Sodium (Levothyroxine Sodium), 100 MCG PO QAM Lorazepam (Ativan), 0.25 MG PO BID Metoprolol Tartrate (Lopressor) (Lopressor), 25 MG PO BID Omeprazole (Prilosec), 20 MG PO BID Polyethylene Glycol-Propylene (Systane Ultra), 1 DROP OPB QID Ranitidine (Zantac), 150 MG PO BID Simethicone (Mytab Gas), 80 MG PO BID Venlafaxine Hcl (Venlafaxine Extended Rel), 75 MG PO BID Scheduled PRN Acetaminophen (Acetaminophen), 650 MG PO Q12 PRN for Pain or Fever Albuterol Hfa (Ventolin Hfa), 2 PUFFS INH UD PRN for Bronchospasms Albuterol Sulf (Proventil 0.083% 2.5MG/3ML), 2.5 MG NEB Q2H PRN for COPD Alum & Mag Hydrox-Simethicone (Antacid), 30 ML PO Q6H PRN for Acid Reflux Artificial Tear Solution (Artificial Tears), 1 DROP OPB Q6H PRN for Dry Eye(s) Benzocaine-Menthol (Mouth-Thro (Cepacol Sore Throat), 1 ROSA PEG Q6H PRN for SORE THROAT Bisacodyl (Dulcolax), 1 SUPP FL UD PRN for Constipation Bismuth Subsalicylate (Bismatrol Maximum Strengt), 30 ML PO Q6H PRN for Nausea/ Diarrhea Home O2 Therapy (Oxygen), 4 LITERS MS UD PRN for Shortness of Breath Levalbuterol Hcl (Levalbuterol), 1.25 MG NEB Q4H PRN for SOB/Wheezing Loperamide Hcl (Imodium A-D), 2 MG PEG Q6H PRN for Diarrhea Magnesium Hydroxide (Milk of Magnesia), 30 ML PO UD PRN for Constipation Oxycodone Ir (Roxicodone Ir), 5 MG PO Q6H PRN for Moderate Pain Prune Juice (Prune Juice ), 1 DOSE PO UD PRN for Constipation Sodium Chloride (Inhalant) (Simply Saline Baby), 1 UNIT NEB Q6H PRN for Increased Secretions Sodium Phosphate/Biphosphate (Fleet Enema), 1 EA FL UD PRN for Constipation [NSS Nebulizer], 1 EA NEB Q6H PRN for Increased Secretion/Congestion Allergies Coded Allergies: Alendronate (Verified Allergy, Unknown, UNK, 03/07/17) Penicillin V (Verified Allergy, Unknown, UNK, 03/07/17) Sulfa Antibiotics (Verified Allergy, Unknown, UNKNOWN, 03/07/17) Sulfadiazine (Verified Allergy, Unknown, Unknown, 03/31/18) Morphine (Verified Adverse Reaction, Mild, itching, 03/07/17) Physical Exam Vital Signs Date Time Temp Pulse Resp B/P (MAP) Pulse Ox O2 Delivery O2 Flow Rate FiO2 03/31/18 23:30 90 20 134/72 95 Trach Collar 4.0 03/31/18 21:37 86 03/31/18 21:34 95 20 127/71 97 Trach Collar 4.0 03/31/18 20:26 96 Trach Collar 4.0 03/31/18 20:26 96 Trach Collar 4.0 03/31/18 20:26 37.0 92 20 123/91 96 Trach Collar 4.0 Physical Exam GENERAL: Patient is in no acute distress. HEENT: No acute trauma, normocephalic atraumatic, mucous membranes moist, no nasal congestion, no scleral icterus. NECK: Tracheostomy present. Some serosanguineous liquid noted on her trach mask. No stridor. No adenopathy. LUNGS: Wheezing bilaterally. Moist cough noted. Breath sounds are equal. No respiratory distress. HEART: Without murmurs gallops or rubs, regular rate and rhythm. ABDOMEN: Soft, nontender, bowel sounds positive, no hernias, no peritonitis. EXTREMITIES: No cyanosis or edema, full range of motion of all the joints without pain or difficulty, no signs for acute trauma. NEUROLOGIC: Oriented x 3, no acute motor or sensory deficits, no focal weakness. SKIN: No rash, no jaundice, no diaphoresis. Medical Decision & Procedures ER Provider Diagnostic Interpretation: Radiology results as stated below per my review and radiologist interpretation: CHEST ONE VIEW PORTABLE HISTORY: EVALUATE RESPIRATORY DISTRESS.DYSPNEA COMPARISON: Chest 02/12/2018. FINDINGS: The lungs are hyperexpanded with apical predominant emphysematous changes. Patchy/linear density at the right lung base which is new from the prior study. Mild interstitial thickening at the lung bases is likely due to vascular crowding from the pulmonary edema. Otherwise, the left lung is clear. Surgical clips are seen overlying the lower neck. The heart is normal in size. No pleural effusions. No pneumothorax. IMPRESSION: 1. Emphysema. 2. New patchy/linear density within the base the right lower lobe. This may represent a pneumonia or atelectasis. Electronically signed by: Brennan Naik M.D. 03/31/2018 9:24 PM Dictated Date/Time: 03/31/2018 9:22 PM CTA CHEST: Impression: No pulmonary embolism. Atelectasis is seen in the right lower lobe. Severe centrilobular and paraseptal emphysematous change. Stable appearance of 9 mm right lower lobe (superior segment) pulmonary nodule with central calcification dating back to August 09, 2017 exam. Left upper lobe calcified granuloma appears stable. Stable 2.1 cm hypodense lesion in the right hepatic lobe. Incompletely visualized postsurgical changes of the neck including tracheostomy. Radiologist: Dante Hendricks MD Study ready at 23:28 and initial results transmitted at 23:41. Laboratory Results 03/31/18 21:18 Red Blood Count 4.55, Mean Corpuscular Volume 80.4, Mean Corpuscular Hemoglobin 24.8, Mean Corpuscular Hemoglobin Concent 30.9, Mean Platelet Volume 9.4, Neutrophils (%) (Auto) 64.4, Lymphocytes (%) (Auto) 25.1, Monocytes (%) (Auto) 6.9, Eosinophils (%) (Auto) 3.3, Basophils (%) (Auto) 0.1, Neutrophils # (Auto) 5.59, Lymphocytes # (Auto) 2.18, Monocytes # (Auto) 0.60, Eosinophils # (Auto) 0.29, Basophils # (Auto) 0.01 03/31/18 21:18 Test 03/31/18 21:18 03/31/18 21:53 White Blood Count 8.69 K/uL (4.8-10.8) Red Blood Count 4.55 M/uL (4.2-5.4) Hemoglobin 11.3 g/dL (12.0-16.0) Hematocrit 36.6 % (37-47) Mean Corpuscular Volume 80.4 fL (80-100) Mean Corpuscular Hemoglobin 24.8 pg (25-34) Mean Corpuscular Hemoglobin Concent 30.9 g/dl (32-36) Platelet Count 233 K/uL (130-400) Mean Platelet Volume 9.4 fL (7.4-10.4) Neutrophils (%) (Auto) 64.4 % Lymphocytes (%) (Auto) 25.1 % Monocytes (%) (Auto) 6.9 % Eosinophils (%) (Auto) 3.3 % Basophils (%) (Auto) 0.1 % Neutrophils # (Auto) 5.59 K/uL (1.4-6.5) Lymphocytes # (Auto) 2.18 K/uL (1.2-3.4) Monocytes # (Auto) 0.60 K/uL (0.11-0.59) Eosinophils # (Auto) 0.29 K/uL (0-0.5) Basophils # (Auto) 0.01 K/uL (0-0.2) RDW Standard Deviation 46.0 fL (36.4-46.3) RDW Coefficient of Variation 15.9 % (11.5-14.5) Immature Granulocyte % (Auto) 0.2 % Immature Granulocyte # (Auto) 0.02 K/uL (0.00-0.02) Anion Gap 7.0 mmol/L (3-11) Est Creatinine Clear Calc Drug Dose 46.8 ml/min Estimated GFR () 82.8 Estimated GFR (Non- 71.4 BUN/Creatinine Ratio 16.0 (10-20) Calcium Level 8.8 mg/dl (8.5-10.1) Magnesium Level 2.1 mg/dl (1.8-2.4) Total Bilirubin 0.3 mg/dl (0.2-1) Aspartate Amino Transf (AST/SGOT) 30 U/L (15-37) Alanine Aminotransferase (ALT/SGPT) 35 U/L (12-78) Alkaline Phosphatase 86 U/L (45-117) Troponin I < 0.015 ng/ml (0-0.045) Pro-B-Type Natriuretic Peptide 253 pg/ml (0-900) Total Protein 7.1 gm/dl (6.4-8.2) Albumin 3.6 gm/dl (3.4-5.0) Globulin 3.5 gm/dl (2.5-4.0) Albumin/Globulin Ratio 1.0 (0.9-2) Urine Color YELLOW Urine Appearance CLEAR (CLEAR) Urine pH 5.5 (4.5-7.5) Urine Specific Tamms >= 1.030 (1.000-1.030) Urine Protein NEG (NEG) Urine Glucose (UA) NEG (NEG) Urine Ketones NEG (NEG) Urine Occult Blood 2+ (NEG) Urine Nitrite NEG (NEG) Urine Bilirubin NEG (NEG) Urine Urobilinogen NEG (NEG) Urine Leukocyte Esterase TRACE (NEG) Urine RBC 0-4 /hpf (0-4) Urine WBC 1-5 /hpf (0-5) Urine Epithelial Cells 10-20 /lpf (0-5) Urine Bacteria NEG (NEG) Urine Hyaline Casts 1-5 /lpf (0-5) Laboratory results reviewed by me. Medications Administered Medications (Trade) Dose Ordered Sig/Beverly Route Start Time Stop Time Status Last Admin Dose Admin Albuterol/ Ipratropium (Duoneb) 3 ml NOW STAT INH 03/31/18 20:41 03/31/18 20:44 DC 03/31/18 21:18 3 ML Cefepime HCl 2000 mg/Dextrose 112.5 ml @ 200 mls/hr ONE STAT IV 03/31/18 21:40 03/31/18 22:13 DC 03/31/18 22:03 200 MLS/HR ECG Per My Interpretation Indication: SOB/dyspnea Rate (beats per minute): 85 Rhythm: normal sinus Findings: no ectopy, other (no ST elevations, no PVCs) ED Course 2037: The patient was evaluated in room C10. A complete history and physical exam was performed. 2040: Ordered Duoneb 3 ml INH. 0: Ordered Cefepime HCl 2000 mg/ Dextrose 112.5 ml @ 200 mls/hr IV. 2220: Ordered Tylenol Tab 650 mg PO. 2348: I reevaluated the patient and updated her on her test results at this time. She is feeling better, but wanted me to talk to the staff at [facility] about this discharge from her tracheostomy. 0045: I spoke to the patient's nursing ovens supervisor at [facility]. We could not get a hold of the human resources communications manager physician. I updated her on the patient's results. They are glad to take her back and will work on the trach issue tomorrow. 0050: Reevaluated the patient. Discussed results and discharge instructions: She verbalized understanding and agreement. The patient is ready for discharge. Medical Decision Differential diagnoses include bronchitis or pneumonia, CHF, aspiration, dehydration, anemia, electrolyte imbalance, LA. There is no leukocytosis or concerning anemia. No significant electrolyte abnormality or kidney failure. There is no hepatitis. EKG shows a sinus rhythm , no acute ischemic change. Cardiac enzyme testing 1 is not consistent with acute cardiac injury. Chest x-ray shows some potential atelectasis or pneumonia at the right base. No CHF. Chest CT does not show pneumonia, atelectasis was seen, there was no PE. Urinalysis does not show infection. The patient received IV cefepime as antibiotic coverage. She was given oral Tylenol at her request. She received a DuoNeb. The patient presents short of breath with cough and wheezing. I suspect that she has an acute bronchitis. She is not toxic. I do think she can be discharged back to [facility]. She will be on doxycycline twice a day for a week, frequent duo nebs have been suggested. There was some concern that she may have some leakage from her esophagus into her trachea. This will need further evaluation by her specialist. They can call tomorrow to set up this type of evaluation. If worsening, the patient can be returned for reassessment. I did discuss everything with the nurse ovens supervisor at [facility]. I talked to the patient at length. Medication Reconcilliation Current Medication List: was personally reviewed by me Blood Pressure Screening Patient's blood pressure: Elevated blood pressure Blood pressure disposition: Elevated BP felt to be situational Consults Time Called: 2351 Consulting Physician: Nursing Supervisor [employer] at [facility] Returned Call: 0045 I spoke to the patient's nursing ovens supervisor at [facility]. We could not get a hold of the human resources communications manager physician. I updated her on the patient's results. They are glad to take her back and will work on the trach issue tomorrow. Impression Primary Impression: SOB (shortness of breath) Additional Impressions: Acute bronchitis Tracheostomy present Scribe Attestation The scribe's documentation has been prepared under my direction and personally reviewed by me in its entirety. I confirm that the note above accurately reflects all work, treatment, procedures, and medical decision making performed by me. Departure Information Dispostion Home / Self-Care Prescriptions Doxycycline Hyclate (VIBRAMYCIN) 100 Mg Cap 100 MG PO BID for 7 Days, #14 CAP Prov: Kam Cox M.D. 04/01/18 Referrals [facility] (PCP) Forms HOME CARE DOCUMENTATION FORM, IMPORTANT VISIT INFORMATION, WORK / SCHOOL INSTRUCTIONS Patient Instructions My [facility] Additional Instructions use albuterol or duo neb treatments every 4 hours doxycycline 2x per day for 1 week talk with her specialist for the concerns for potential trach leakage lab testing and Chest CT scan today were ok--no pneumonia noted she was wheezing on exam and improved after a neb return for fever or worsening issues with the breathing Problem Qualifiers
[2018-04-01] MEDS ORDERED: DOXY100C PO (00:49)
[2018-04-01 01:00] VITALS: TEMP 37
[2018-04-01 02:56] VITALS: BP 132/70; PULSE 85; O2SAT 95
--- NOTE | 2018-04-01 08:24 | DIAGNOSTIC IMAGING REPORT ---
CT ANGIOGRAM OF THE CHEST CLINICAL HISTORY: Atypical chest pain. COMPARISON STUDY: Chest CT scans dated 08/09/2017 and 03/26/2015. Chest x-ray dated 03/31/2018. TECHNIQUE: Following the IV administration of 116 cc of Optiray 320, CT angiogram of the chest was performed from the upper abdomen to the thoracic inlet utilizing the pulmonary embolus protocol. Images are reviewed in the axial, sagittal, and coronal planes. 3-D MIPS images are created and assessed. IV contrast was administered without complication. A dose lowering technique was utilized adhering to the principles of ALARA. CT DOSE: 166.52 mGy.cm FINDINGS: Thyroid: Atrophic versus surgically absent. Numerous surgical clips are seen in the lower neck. Thoracic aorta: There is advanced atherosclerotic calcification of the thoracic aorta, which is normal in caliber and demonstrates standard 3-vessel arch anatomy. No dissection is seen. Pulmonary vasculature: The pulmonary trunk is normal in caliber. There are no filling defects identified in main, lobar, or segmental pulmonary branches to suggest pulmonary embolus. Heart: The heart is normal in size and configuration, and without pericardial effusion. Lungs and pleural spaces: A tracheostomy is in place. Fluid/secretions are suggested in the trachea. Advanced emphysema is similar to previous. There is volume loss in the right lung with mild rightward shift of the mediastinum. There is no airspace consolidation typical for pneumonia or pleural effusion. Mild diffuse peribronchial thickening suggests reactive airway disease. Right basilar scarring/atelectasis is similar to previous. 8 mm nodule in the right lower lobe containing macroscopic calcification and probable foci of fat is again seen on image #121. 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 There are additional scattered calcified granulomas. There is a 10 mm irregular nodule with central cavitation in the right lower lobe seen on image #112. This has increased in size from studies dated 2017. Mediastinum: There is no mediastinal lymphadenopathy. Tracy: An enlarged right hilar node on image #115 measures 1.7 x 1.3 cm. No left hilar adenopathy is seen. Axillae: There is no axillary lymphadenopathy. Upper abdomen: A 2.3 cm low-attenuation lesion in the right hepatic lobe is unchanged from prior studies. Skeletal structures: The skeletal structures are osteopenic. Degenerative change and hyperkyphosis are noted in the thoracic spine. There are chronic compression deformities of T1, T2, T3, T4, and T8. No lytic or blastic bony lesions are seen. IMPRESSION: 1. There is no evidence of pulmonary embolus in the main, lobar, or segmental pulmonary arteries. 2. Severe emphysema. 3. There is no airspace consolidation typical for pneumonia or pleural effusion. Mild diffuse peribronchial thickening suggests reactive airway disease. Clinical correlation required. 4. There is a 10 mm right lower lobe pulmonary nodule with central cavitation. This has increased in size from studies dated 2017. Although indeterminant and potentially inflammatory, this is highly concerning for pulmonary neoplasm given the increase in size and change in character from previous. At a minimum, short-term (1-2 [address]) [address] follow-up is recommended. 5. 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 6. There are enlarged right hilar lymph nodes. 7. A 2.3 cm low-attenuation lesion in the right hepatic lobe is unchanged from prior studies. 8. Additional findings as above. Electronically signed by: Kam Adames M.D. 04/01/2018 8:14 AM Dictated Date/Time: 04/01/2018 8:02 AM
== END 2018-04-01 02:57 | disposition home or self-care (01) ==
LOC: EDBD 20:17 → C.EDC 20:18
DX: J44.0 Chronic obstructive pulmonary disease with (acute) lower respiratory infection (principal); J20.9 Acute bronchitis, unspecified; Z93.0 Tracheostomy status; K21.9 Gastro-esophageal reflux disease without esophagitis; F41.9 Anxiety disorder, unspecified; Z85.21 Personal history of malignant neoplasm of larynx; Z87.891 Personal history of nicotine dependence; Z88.0 Allergy status to penicillin; Z88.1 Allergy status to other antibiotic agents; Z88.5 Allergy status to narcotic agent; Z88.8 Allergy status to other drugs, medicaments and biological substances; Z79.82 Long term (current) use of aspirin; Z79.899 Other long term (current) drug therapy

== ENCOUNTER → 2018-05-30 | Outpatient (CLI) | payer OTHER ==
[~2018-05-30] MED LIST changes: +ACET160S3 PO; -ACET160S78 PO; +ACET1SUS42 PO; +ALBINS/ NEB; -ALUM-30 PO; +ALUM1SUS PO; -ASPI-390 PO; +BENZ10LO2 PEG; -BISM262S7 PO; +CHOL20007 PO; -CRFL PO; +IPRA-64 INH; +LEVO-459 PO; +LEVO100T7 PO; -LEVO137T3 PO; +LOPE-5 PEG; +MAGIC1 PO; +OXGN; +OXGN MS; +OXYC-90 PO; -OXYC1TAB3 PO; +PRED10TA PO; +PRNJ PO; +SIME1CHW14 PO; -SIME80CH PO; +SODIENE PR; +SODIUM CHLORIDE NEB; -XPNINS125 NEB; +[UNRECOGNIZED DRUG - CODE] PO; -[UNRECOGNIZED DRUG - OTHER] PO
[2018-05-30 09:35] LABS: BASO % 0.3 %; BASO ABS # 0.02 K/uL (0-0.2); EOS % 7.7 %; EOS ABS # 0.48 K/uL (0-0.5); HEMATOCRIT 36.8 % (37-47); IG# 0.02 K/uL (0.00-0.02); LYMPH ABS # 2.25 K/uL (1.2-3.4); MEAN CELL VOLUME 82.1 fL (80-100); MEAN CORPUSCULAR HEMOGLOBIN 24.6 pg (25-34); MEAN CORPUSCULAR HGB CONC 29.9 g/dl (32-36); MEAN PLATELET VOLUME 9.5 fL (7.4-10.4); MONO % 9.6 %; NEUT % 46.1 %; NEUT ABS # 2.88 K/uL (1.4-6.5); PLATELET COUNT 288 K/uL (130-400); RED CELL DISTRIBUTION WIDTH CV 18.2 % (11.5-14.5); RED CELL DISTRIBUTION WIDTH SD 53.9 fL (36.4-46.3); WHITE BLOOD COUNT 6.25 K/uL (4.8-10.8)
== END ==
LOC: C.LABCC 08:28
PROVIDERS: ATTEND Internal Medicine
DX: D64.9 Anemia, unspecified (principal); E55.9 Vitamin D deficiency, unspecified; E78.5 Hyperlipidemia, unspecified; E03.9 Hypothyroidism, unspecified

== ENCOUNTER → 2018-06-14 | Outpatient (CLI) | payer OTHER ==
[2018-06-14 08:43] LABS: BASO % 0.1 %; BASO ABS # 0.01 K/uL (0-0.2); EOS % 2.6 %; EOS ABS # 0.21 K/uL (0-0.5); HEMATOCRIT 35.9 % (37-47); HEMOGLOBIN 10.9 g/dL (12.0-16.0); IG# 0.03 K/uL (0.00-0.02); LYMPH % 32.7 %; LYMPH ABS # 2.64 K/uL (1.2-3.4); MEAN CORPUSCULAR HEMOGLOBIN 24.9 pg (25-34); MEAN CORPUSCULAR HGB CONC 30.4 g/dl (32-36); MONO % 8.8 %; MONO ABS # 0.71 K/uL (0.11-0.59); NEUT % 55.4 %; NEUT ABS # 4.47 K/uL (1.4-6.5); PLATELET COUNT 222 K/uL (130-400); RED CELL DISTRIBUTION WIDTH CV 18.4 % (11.5-14.5); RED CELL DISTRIBUTION WIDTH SD 54.3 fL (36.4-46.3); WHITE BLOOD COUNT 8.07 K/uL (4.8-10.8)
[2018-06-14 08:53] LABS: BLOOD UREA NITROGEN 16 mg/dl (7-18); CALCIUM 9.1 mg/dl (8.5-10.1); CARBON DIOXIDE 31 mmol/L (21-32); CREATININE 1.03 mg/dl (0.60-1.20); GLUCOSE 87 mg/dl (70-99); POTASSIUM 3.7 mmol/L (3.5-5.1); SODIUM 140 mmol/L (136-145)
== END ==
LOC: C.LABCC 08:06
PROVIDERS: ATTEND Internal Medicine
DX: D64.9 Anemia, unspecified (principal); E03.9 Hypothyroidism, unspecified

== ENCOUNTER 2019-07-29 23:04 | Inpatient (IN) ==
[2019-07-29] MEDS ORDERED: SODIUM CHLORIDE 0.9% 500 ML IV SCH (23:15)
[2019-07-29] MEDS ORDERED: MIDAZOLAM HCL 1 MG/ML 2ML VIAL ONE (23:18)
[2019-07-29] MEDS ORDERED: LEVOFLOXACIN/D5W 750 MG/150 ML BAG IV STA (23:26)
[2019-07-29] MEDS ORDERED: FAMOTIDINE 20MG IV PUSH 20 MG/5 ML SYR IV STA (23:26)
[2019-07-29] MEDS ORDERED: LINEZOLID 600 MG/300 ML D5W IV ONE (23:27)
[2019-07-29 23:42] LABS: Base Excess VBG 0.5 mEq/L; HCO3 VBG 30 mmol/L; PCO2 VBG 77 mmHg (38-50); PO2 VBG 20 mmHg; pH VBG 7.21 (7.36-7.41)
[2019-07-29 23:49] LABS: Oxygen Saturation VBG < 60.0 %
[2019-07-29 23:52] LABS: Albumin Level 4.1 gm/dl (3.4-5.0); BUN Creatinine Ratio 8.3 (10-20); Creatinine Clr Calc Pharmacy 28.4 ml/min; Est GFR (African American) 37.7; Est GFR (Non-African American) 32.5; Potassium 3.7 mmol/L (3.5-5.1)
[2019-07-29 23:55] LABS: Bilirubin,Total 0.3 mg/dl (0.2-1); Globulin 4.1 gm/dl (2.5-4.0); Total Protein 8.2 gm/dl (6.4-8.2)
[2019-07-30] LABS: Hematocrit (blood only) 41.2 % (37-47); Mean Corpuscular Hemoglobin 21.8 pg (25-34); Mean Corpuscular Hgb Conc 29.1 g/dL (32-36); Mean Corpuscular Volume 74.9 fL (80-100); Mean Platelet Volume 9.7 fL (7.4-10.4); Platelet Count 341 K/uL (130-400); RDW Coefficient of Variation 16.5 % (11.5-14.5); RDW Standard Deviation 44.6 fL (36.4-46.3); White Blood Count 30.65 K/uL (4.8-10.8)
[2019-07-30 00:01] LABS: Basophils # (auto) 0.03 K/uL (0-0.2); Basophils % (auto) 0.1 %; Eosinophils # (auto) 0.09 K/uL (0-0.5); Eosinophils % (auto) 0.3 %; Hypochromasia Present; Immature Granulocytes # (auto) 0.11 K/uL (0.00-0.02); Immature Granulocytes % (auto) 0.4 %; Lymphocytes # (auto) 1.95 K/uL (1.2-3.4); Lymphocytes % (auto) 6.4 %; Monocytes # (auto) 1.18 K/uL (0.11-0.59); Monocytes % (auto) 3.8 %; Neutrophils # (auto) 27.29 K/uL (1.4-6.5)
[2019-07-30 00:03] LABS: iSTAT Creatinine 1.6 mg/dl (0.6-1.3); iSTAT Hemoglobin 13.9 g/dl (12.0-16.0); iSTAT Ionized Calcium 1.08 mmol/l (1.12-1.32); iSTAT Potassium 3.8 mEq/L (3.3-5.0)
[2019-07-30] MEDS ORDERED: SODIUM CHLORIDE 0.9% 1000ML 2,000 ML IV ONE (00:06)
[2019-07-30] MEDS ORDERED: MIDAZOLAM HCL 5 MG/ML 1 ML VIAL IV STA (00:18)
--- NOTE | 2019-07-30 00:22 | Emergency Department Note ---
Entered by Reynaldo Castanon acting as a scribe for Ras Arellano DO History of Present Illness General Chief complaint: Respiratory Distress Stated complaint: UNRESPONSIVE, GI BLEED Source: EMS Mode of arrival: EMS Limitations: other (HPI limited secondary to the patient's altered state of consciousness.) History of Present Illness The patient is a 69 y/o female who presents to the ED w/ significant respiratory distress and unconscious. EMS states BLS was called for the patient because she had a suspected GI bleed after two bouts of large, black, tarry, stool. They report the patient was responsive on their arrival. EMS notes in route, the patient started having respiratory distress. They state the patient has a MRSA infected stoma that started to produce thick, chunky, yellow brown discharge. EMS reports the patient was given a nebulizer yet continued to decline in her respiratory status. They note the patient had a 6-0 endotube placed in route. EMS states the patient was Sating in the 90s with an end tidal of 35 and blood pressure of 160/92. They report the patient's bleeding started today. HPI limited secondary to the patient's altered state of consciousness. Home Medications Home Medications Medication Instructions Recorded Confirmed Type NSS Nebulizer 1 dose NEB Q6H PRN #0 03/31/18 07/30/19 History peg 400-propylene glycol (PF) 0.4 1 drops OP QID PRN 11/15/18 07/30/19 History %-0.3 % eye drops in a dropperette sodium phosphates 19 gram-7 118 ml FL DAILY PRN 11/15/18 07/30/19 History gram/118 mL enema aspirin 81 mg PO DAILY 07/29/19 07/29/19 History benzocaine-menthol [Cepacol Sore 1 flo PO Q4H PRN 07/29/19 07/29/19 History Throat (luiza-men)] bisacodyl [Dulcolax (bisacodyl)] 10 mg FL DAILY PRN 07/29/19 07/29/19 History bismuth subsalicylate 525 mg PO Q6H PRN 07/29/19 07/29/19 History buspirone 15 mg PO TID 07/29/19 07/29/19 History furosemide [Lasix] 40 mg PO QAM 07/29/19 07/29/19 History guaifenesin 100 mg PO QID PRN 07/29/19 07/29/19 History levalbuterol HCl 1.25 mg INHALATION Q4H PRN 07/29/19 07/30/19 History lorazepam [Ativan] 0.5 mg PO BID PRN 07/29/19 07/29/19 History Maalox Plus 30 ml PO Q8H PRN 07/30/19 07/30/19 History Magic Swizzle 20 ml PO QID PRN 07/30/19 07/30/19 History Simply Saline 1 dose pk INHALATION Q6H PRN 07/30/19 07/30/19 History Systane Ultra Solution 1 drp QID PRN 07/30/19 07/30/19 History albuterol sulfate [Ventolin HFA] 2 puff INHALATION Q6H PRN 07/30/19 07/30/19 History loperamide 2 mg PO DIRECTED PRN 07/30/19 07/30/19 History magnesium hydroxide [Milk of 30 ml PO DAILY PRN 07/30/19 07/30/19 History Magnesia] metoprolol tartrate 25 mg PO BID 07/30/19 07/30/19 History omeprazole 20 mg PO BID 07/30/19 07/30/19 History oxycodone 5 mg PO Q6H PRN 07/30/19 07/30/19 History prednisone 10 mg PO DAILY 07/30/19 07/30/19 History ranitidine HCl 150 mg PO BID 07/30/19 07/30/19 History simethicone [Gas Relief 80] 80 mg PO Q6H PRN 07/30/19 07/30/19 History venlafaxine 75 mg PO DAILY 07/30/19 07/30/19 History Allergies Allergy/AdvReac Type Severity Reaction Status Date / Time alendronate sodium Allergy U UNK Verified 07/29/19 23:48 penicillin V Allergy U UNK Verified 07/29/19 23:48 Sulfa (Sulfonamide Allergy U UNKNOWN Verified 07/29/19 23:48 Antibiotics) sulfadiazine Allergy U Unknown Verified 07/29/19 23:48 morphine AdvReac [place] itching Verified 07/29/19 23:48 Past Med/Surg History Medical History Anemia (Chronic) COPD (chronic obstructive pulmonary disease) (Chronic) Cholelithiasis (Chronic) Constipation (Chronic) Depression with anxiety (Chronic) Dysphagia (Chronic) Elevated hemidiaphragm (Chronic) Esophageal reflux (Chronic) Hyperlipemia (Chronic) Hypertension (Chronic) Hypothyroidism (Chronic) Laryngeal cancer (Chronic) 2008 Osteoarthritis (Chronic) Tachycardia (Chronic) Tracheostomy in place (Chronic) Ventral hernia (Chronic) Vitamin D deficiency (Chronic) History of radiation therapy (Resolved) Larynx: 02/25/09 - 04/09/09 Pleural effusion (Resolved) Surgical History History of bronchoscopy (Resolved) History of section (Resolved) 1978 x 1 History of laryngectomy (Resolved) 2008 History of radical neck dissection (Resolved) 2008 Family History Mother Alzheimer disease Age 91 - Alive and well Father , Passed age 85 of Non-Hodgkin's Lymphoma No problems noted. Family/Other Prostate cancer Sister , Passed age 64 of [place] No problems noted. Sister No problems noted. Sister No problems noted. Sister No problems noted. Brother No problems noted. Son , Passed as child in MVA No problems noted. Son , Passed as child in MVA No problems noted. Son No problems noted. Son No problems noted. Daughter No problems noted. 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 Beliefs That Will Affect Care: None marital status: Current Living Situation: Correction current occupational status: retired current occupation: Retired Feels Safe at Home: Yes Smoking Status: Unknown if ever smoked caffeine: Yes (0-1 cup / day ) during the past year weight has: remained stable Review of Systems Other (ROS limited secondary to the patient's altered state of consciousness.) Physical Exam Vital Signs Vital Signs - 24 hr 07/29/19 22:52 07/29/19 23:07 07/29/19 23:11 Temperature 37.3 C Temperature Source Oral Sepsis Recent Fever Within 48 Hours No Sepsis New/Unexplained Change in Mental Status Yes Sepsis Action Taken by Nursing No Action Required Pulse Rate 95 H 94 H Pulse Rate [Apical] Pulse Rate from SpO2 Sensor 94 H Respiratory Rate 20 23 Respiratory Effort / Characteristics Other Blood Pressure 174/127 H 174/127 H Blood Pressure Mean 142 142 Blood Pressure Position Lying Pulse Oximetry 97 98 Oxygen Delivery Method Ambu-Bag Ambu-Bag Oxygen Flow Rate Fraction of Inspired Oxygen 07/29/19 23:13 07/29/19 23:15 07/29/19 23:23 Temperature Temperature Source Sepsis Recent Fever Within 48 Hours Sepsis New/Unexplained Change in Mental Status Sepsis Action Taken by Nursing Pulse Rate 94 H 95 H 95 H Pulse Rate [Apical] Pulse Rate from SpO2 Sensor 93 H 97 H 95 H Respiratory Rate 24 25 H 23 Respiratory Effort / Characteristics Blood Pressure 130/82 Blood Pressure Mean 98 Blood Pressure Position Pulse Oximetry 96 86 L 94 Oxygen Delivery Method Oxygen Flow Rate Fraction of Inspired Oxygen 07/29/19 23:30 07/29/19 23:32 07/29/19 23:33 Temperature Temperature Source Sepsis Recent Fever Within 48 Hours Sepsis New/Unexplained Change in Mental Status Sepsis Action Taken by Nursing Pulse Rate 88 90 90 Pulse Rate [Apical] Pulse Rate from SpO2 Sensor Respiratory Rate 17 17 24 Respiratory Effort / Characteristics Blood Pressure 82/60 L Blood Pressure Mean 67 Blood Pressure Position Pulse Oximetry Oxygen Delivery Method Oxygen Flow Rate Fraction of Inspired Oxygen 07/29/19 23:45 07/29/19 23:46 07/30/19 00:00 Temperature Temperature Source Sepsis Recent Fever Within 48 Hours Sepsis New/Unexplained Change in Mental Status Sepsis Action Taken by Nursing Pulse Rate 87 62 Pulse Rate [Apical] Pulse Rate from SpO2 Sensor 86 78 86 Respiratory Rate 24 22 Respiratory Effort / Characteristics Blood Pressure 88/49 L Blood Pressure Mean 62 Blood Pressure Position Pulse Oximetry 95 95 Oxygen Delivery Method Oxygen Flow Rate Fraction of Inspired Oxygen 07/30/19 00:01 07/30/19 00:15 07/30/19 00:16 Temperature Temperature Source Sepsis Recent Fever Within 48 Hours Sepsis New/Unexplained Change in Mental Status Sepsis Action Taken by Nursing Pulse Rate 83 82 Pulse Rate [Apical] Pulse Rate from SpO2 Sensor 85 Respiratory Rate 25 H 26 H Respiratory Effort / Characteristics Blood Pressure 100/62 100/53 L Blood Pressure Mean 74 68 Blood Pressure Position Pulse Oximetry Oxygen Delivery Method Oxygen Flow Rate Fraction of Inspired Oxygen 07/30/19 00:36 Temperature Temperature Source Sepsis Recent Fever Within 48 Hours Sepsis New/Unexplained Change in Mental Status Sepsis Action Taken by Nursing Pulse Rate Pulse Rate [Apical] 83 Pulse Rate from SpO2 Sensor Respiratory Rate 22 Respiratory Effort / Characteristics Blood Pressure Blood Pressure Mean Blood Pressure Position Pulse Oximetry 96 Oxygen Delivery Method Trach Collar Oxygen Flow Rate 15 Fraction of Inspired Oxygen 70 GENERAL: Patient is listless and lethargic. She responds to painful stimuli. She localizes pain but does not answer questions purposefully. EYES: The conjunctivae are clear. The pupils are dilated but reactive bilaterally. EARS, NOSE, MOUTH AND THROAT: The nose is without any evidence of any deformity. Mucous members are dry. Oral mucosa is cyanotic. NECK: The neck is nontender and supple. RESPIRATORY: Shallow respirations are noted. Respirations are only noted with bagging. There are diminished breath sounds in the left lung field. The endotracheal tube was placed in the stoma this was pulled back with only minimal improvement of the left lobe breath sounds. Scattered rales are noted at both bases left greater than right. CARDIOVASCULAR: Regular rate and rhythm noted there no murmurs rubs or gallops normal S1 normal S2 GASTROINTESTINAL: The abdomen is soft. Bowel sounds are present in all quadrants. Abdomen is nontender MUSCULOSKELETAL/EXTREMITIES: There is no evidence of gross deformity full range of motion is noted in the hips and shoulders SKIN: Skin was cool and cyanotic. Trace pedal edema was noted only in the lower extremities. NEUROLOGIC: Patient does not answer to verbal commands. She does not follow commands. She appears to be moving all extremities well and localizes pain. Procedures Free Text Procedures Procedure: Trach tube placement Indication: Respiratory distress The patient presented to the emergency department by ambulance with respiratory distress. She was hypoxic. She had an endotracheal tube placed in the stoma prior to arrival. A bougie was placed through the endotracheal tube. The endotracheal tube was removed and a size 4 cuffed trach tube was placed over top of the bougie. The bougie was removed. The balloon was inflated. The inner cannula was placed. Good breath sounds were noted bilaterally. The patient tolerated procedure well. Suctioning was done by the respiratory technicians. The patient was then placed on the ventilator and oxygen saturations were noted to improve. Chest x-ray revealed proper placement as well as a left lower lobe infiltrate. Course 2302: Past medical records reviewed. The patient was evaluated in room B01. A complete history and physical exam was performed. 0020: I reviewed the patient's case with Dr. Sorto, [facility] Hospitalist. He will evaluate the patient for further management. Administered Medications Albuterol (Duoneb) 3 ml NEB Q4R [facility] Stop: 08/29/19 02:59 Last Admin: 07/31/19 07:10 Dose: 3 ml Documented by: [id number] Admin: 07/31/19 03:53 Dose: 3 ml Documented by: [id number] Admin: 07/30/19 23:20 Dose: 3 ml Documented by: [id number] Admin: 07/30/19 19:06 Dose: 3 ml Documented by: [id number] Admin: 07/30/19 15:39 Dose: 3 ml Documented by: [id number] Admin: 07/30/19 10:55 Dose: 3 ml Documented by: [id number] Admin: 07/30/19 07:33 Dose: 3 ml Documented by: [id number] Admin: 07/30/19 03:10 Dose: 3 ml Documented by: [id number] Aspirin (Aspirin Chew) 81 mg PO DAILY [facility] Stop: 08/29/19 08:59 Last Admin: 07/30/19 10:58 Dose: Not Given Documented by: [id number] Buspirone HCl (Buspar) 15 mg PO TID [facility] Stop: 08/29/19 08:59 Last Admin: 07/30/19 19:46 Dose: Not Given Documented by: [id number] Admin: 07/30/19 10:58 Dose: Not Given Documented by: [id number] Heparin Sodium (Porcine) (Heparin Sodium (Porcine)) 5,000 units SQ Q12 [facility] Stop: 08/29/19 08:59 Last Admin: 07/30/19 11:25 Dose: Not Given Documented by: [id number] Methylprednisolone 40 mg/ (Syringe) 0.64 mls @ 1.5 mls/min IV DAILY [facility] Stop: 08/29/19 08:59 Last Admin: 07/30/19 08:27 Dose: 1.5 mls/min Documented by: [id number] Metronidazole (Flagyl) 500 mg in 100 mls @ 100 mls/hr IV Q8H [facility] Stop: 08/09/19 03:59 Last Infusion: 07/31/19 04:32 Dose: 0 mls/hr Documented by: [id number] Admin: 07/31/19 03:24 Dose: 100 mls/hr Documented by: [id number] Infusion: 07/30/19 20:54 Dose: 0 mls/hr Documented by: [id number] Admin: 07/30/19 19:47 Dose: 100 mls/hr Documented by: [id number] Infusion: 07/30/19 12:50 Dose: 0 mls/hr Documented by: [id number] Admin: 07/30/19 11:49 Dose: 100 mls/hr Documented by: [id number] Infusion: 07/30/19 05:45 Dose: 0 mls/hr Documented by: [id number] Admin: 07/30/19 04:45 Dose: 100 mls/hr Documented by: [id number] Parenteral Electrolytes (Normosol-R) 1,000 mls @ 80 mls/hr IV .[id number] [facility] Stop: 08/29/19 04:44 Last Admin: 07/31/19 03:24 Dose: 80 mls/hr Documented by: [id number] Infusion: 07/31/19 03:18 Dose: 0 mls/hr Documented by: [id number] Infusion: 07/30/19 23:29 Dose: 80 mls/hr Documented by: [id number] Infusion: 07/30/19 23:11 Dose: 0 mls/hr Documented by: [id number] Admin: 07/30/19 14:10 Dose: 80 mls/hr Documented by: [id number] Infusion: 07/30/19 14:10 Dose: 80 mls/hr Documented by: [id number] Infusion: 07/30/19 11:24 Dose: 80 mls/hr Documented by: [id number] Admin: 07/30/19 05:22 Dose: 125 mls/hr Documented by: [id number] Cefepime HCl 2,000 mg/ Syringe 20 mls @ 5 mls/min IV Q12H [place] Stop: 08/09/19 15:59 Last Admin: 07/31/19 04:16 Dose: 5 mls/min Documented by: [id number] Admin: 07/30/19 15:31 Dose: 5 mls/min Documented by: [id number] Acetaminophen (Ofirmev) 65 mls @ 200 mls/hr IV Q8H PRN PRN Reason: Headache or Pain Stop: 08/29/19 09:59 Last Infusion: 07/30/19 23:23 Dose: 0 mls/hr Documented by: [id number] Admin: 07/30/19 23:03 Dose: 200 mls/hr Documented by: [id number] Infusion: 07/30/19 10:59 Dose: 0 mls/hr Documented by: [id number] Admin: 07/30/19 10:38 Dose: 200 mls/hr Documented by: [id number] Pantoprazole Sodium 40 mg/ (Syringe) 10 mls @ 5 mls/min IV BID@0900,2100 [facility] Stop: 08/29/19 20:59 Last Admin: 07/30/19 19:48 Dose: 5 mls/min Documented by: [id number] Vancomycin HCl 750 mg/ Sodium (Chloride) 265 mls @ 125 mls/hr IV Q20H [place] Stop: 08/07/19 03:59 Last Infusion: 07/31/19 05:43 Dose: 0 mls/hr Documented by: [id number] Admin: 07/31/19 03:24 Dose: 125 mls/hr Documented by: [id number] Promethazine HCl 6.25 mg/ (Sodium Chloride) 50.25 mls @ 201 mls/hr IV Q6H PRN PRN Reason: Nausea And Vomiting Stop: 08/29/19 22:52 Last Infusion: 07/30/19 23:29 Dose: 0 mls/hr Documented by: [id number] Admin: 07/30/19 23:11 Dose: 201 mls/hr Documented by: [id number] Lorazepam (Ativan) 0.5 mg in 1 mls @ 0.5 mls/min IV BID PRN PRN Reason: Anxiety/Agitation Stop: 08/29/19 22:52 Last Admin: 07/30/19 23:03 Dose: 0.5 mls/min Documented by: [id number] Metoprolol Tartrate (Lopressor) 25 mg PO BID [facility] Stop: 08/29/19 08:59 Last Admin: 07/30/19 19:46 Dose: Not Given Documented by: [id number] Admin: 07/30/19 10:59 Dose: Not Given Documented by: [id number] Pantoprazole Sodium (Protonix) 40 mg PO BID [place] Stop: 08/29/19 08:59 Last Admin: 07/30/19 10:59 Dose: Not Given Documented by: [id number] Ranitidine HCl (Zantac) 150 mg PO BID [facility] Stop: 08/29/19 08:59 Last Admin: 07/30/19 10:59 Dose: Not Given Documented by: [id number] Venlafaxine HCl (Effexor Extended Release) 75 mg PO DAILY [place] Stop: 08/29/19 08:59 Last Admin: 07/30/19 10:59 Dose: Not Given Documented by: [id number] Discontinued Medications Furosemide (Lasix) 40 mg PO QAM [place] Stop: 08/29/19 08:59 Last Admin: 07/30/19 10:59 Dose: Not Given Documented by: [id number] Sodium Chloride (Nss) 500 mls @ 999 mls/hr IV .Q31M [place] Stop: 07/29/19 23:45 Last Infusion: 07/30/19 00:18 Dose: 0 mls/hr Documented by: [id number] Admin: 07/29/19 23:49 Dose: 999 mls/hr Documented by: [id number] Famotidine (Pepcid 20mg Iv Push) 20 mg in 5 mls @ 2.5 mls/min IV NOW STA Stop: 07/29/19 23:27 Last Admin: 07/29/19 23:50 Dose: 2.5 mls/min Documented by: [id number] Levofloxacin/Dextrose (Levaquin/D5w) 750 mg in 150 mls @ 100 mls/hr IV NOW STA Stop: 07/30/19 00:55 Last Infusion: 07/30/19 01:28 Dose: 0 mls/hr Documented by: [id number] Admin: 07/29/19 23:52 Dose: 100 mls/hr Documented by: [id number] Sodium Chloride (Nss 1000ml) 2,000 mls @ 999 mls/hr IV .Q2H1M ONE Stop: 07/30/19 02:06 Last Infusion: 07/30/19 02:02 Dose: 0 mls/hr Documented by: [id number] Admin: 07/30/19 00:14 Dose: 999 mls/hr Documented by: [id number] Vancomycin HCl 1,250 mg/ (Sodium Chloride) 275 mls @ 125 mls/hr IV ONCE ONE; Protocol Stop: 07/30/19 10:11 Last Infusion: 07/30/19 10:12 Dose: 0 mls/hr Documented by: [id number] Admin: 07/30/19 07:51 Dose: 125 mls/hr Documented by: [id number] Cefepime HCl 2,000 mg/ Syringe 20 mls @ 5 mls/min IV TODAY@0400 [facility] Stop: 07/30/19 04:30 Last Admin: 07/30/19 04:45 Dose: 5 mls/min Documented by: [id number] Calcium Gluconate 1,000 mg/ (Sodium Chloride) 60 mls @ 240 mls/hr IV NOW STA Stop: 07/30/19 11:33 Last Infusion: 07/30/19 12:05 Dose: 0 mls/hr Documented by: [id number] Admin: 07/30/19 11:49 Dose: 240 mls/hr Documented by: [id number] Pantoprazole Sodium 40 mg/ (Syringe) 10 mls @ 5 mls/min IV .EXTRA DOSE ONE Stop: 07/30/19 11:31 Last Admin: 07/30/19 12:25 Dose: 5 mls/min Documented by: [id number] Linezolid (Zyvox) 600 mg IV ONE ONE Stop: 07/29/19 23:28 Last Admin: 07/30/19 00:01 Dose: 600 mg Documented by: [id number] Midazolam HCl (Versed) Confirm Administered Dose 2 mg .ROUTE .STK-MED ONE Stop: 07/29/19 23:19 Last Admin: 07/29/19 23:43 Dose: 2 mg Documented by: [id number] Midazolam HCl (Versed) 2 mg IV NOW STA Stop: 07/30/19 00:19 Last Admin: 07/30/19 00:19 Dose: Not Given Documented by: [id number] Medical Decision Making Differential Diagnosis Differential diagnosis includes etiologies such as sepsis, UTI, pneumonia, metabolic, electrolyte abnormalities, cardiac sources, intracerebral event, toxicologic, neurologic, as well as others were entertained. Medical Records Attestation: I reviewed the patient's medical records. Home Medications Current Medication List: was personally reviewed by me Laboratory Data Attestation: I reviewed the patient's lab results. Result diagrams: 07/31/19 04:16 07/31/19 04:16 Lab Results 07/29/19 07/29/19 07/29/19 Range/Units 23:22 23:22 23:22 WBC 30.65 H* (4.8-10.8) K/uL RBC 5.50 H (4.2-5.4) M/uL Hgb 12.0 (12.0-16.0) g/dL POC Hgb (12.0-16.0) g/dl Hct 41.2 (37-47) % POC Hct (37-47) % MCV 74.9 L (80-100) fL MCH 21.8 L (25-34) pg MCHC 29.1 L (32-36) g/dL RDW Std Deviation 44.6 (36.4-46.3) fL RDW Coeff of Eleazar 16.5 H (11.5-14.5) % Plt Count 341 (130-400) K/uL MPV 9.7 (7.4-10.4) fL Immature Gran % (Auto) 0.4 % Neut % (Auto) 89.0 % Lymph % (Auto) 6.4 % [place] % (Auto) 3.8 % Eos % (Auto) 0.3 % Baso % (Auto) 0.1 % Immature Gran # (Auto) 0.11 H (0.00-0.02) K/uL Neut # (Auto) 27.29 H (1.4-6.5) K/uL Lymph # (Auto) 1.95 (1.2-3.4) K/uL [place] # (Auto) 1.18 H (0.11-0.59) K/uL Eos # (Auto) 0.09 (0-0.5) K/uL Baso # (Auto) 0.03 (0-0.2) K/uL Hypochromasia Present ABG pH (7.35-7.45) ABG pCO2 (35-46) mmHg ABG pO2 (80-95) mm/Hg ABG HCO3 (19-24) mmol/L ABG O2 Saturation (90-95) % ABG Base Excess (-9-1.8) mEq/L Tommie Test (Pos) VBG pH (7.36-7.41) VBG pCO2 (38-50) mmHg VBG pO2 mmHg VBG HCO3 mmol/L VBG O2 Saturation % VBG Base Excess mEq/L Barometric Pressure mm/Hg Oxygen Given POC Sodium (135-144) mEq/L Sodium 137 (136-145) mmol/L POC Potassium (3.3-5.0) mEq/L Potassium 3.7 (3.5-5.1) mmol/L POC Chloride (101-112) mEq/L Chloride 100 (98-107) mmol/L Carbon Dioxide 27 (21-32) mmol/L POC Total CO2 (24-31) mEq/l Anion Gap 10.0 (3-11) POC Anion Gap (16-25) mmol/L POC BUN (7-18) mg/dl BUN 13 (7-18) mg/dl Creatinine 1.61 H (0.6-1.2) mg/dl POC Creatinine (0.6-1.3) mg/dl Est Cr Clr Drug Dosing 28.4 ml/min Est GFR ( Amer) 37.7 Est GFR (Non-Af Amer) 32.5 BUN/Creatinine Ratio 8.3 L (10-20) Glucose 149 H (70-99) mg/dl POC Glucose (other) (70-99) mg/dl Lactate 6.3 H* (0.4-2.0) mmol/L Calcium 9.0 (8.5-10.1) mg/dl POC Ioniz Calcium Kacey (1.12-1.32) mmol/l Total Bilirubin 0.3 (0.2-1) mg/dl AST 18 (15-37) U/L ALT 17 (12-78) U/L Alkaline Phosphatase 125 H (45-117) U/L Total Protein 8.2 (6.4-8.2) gm/dl Albumin 4.1 (3.4-5.0) gm/dl Globulin 4.1 H (2.5-4.0) gm/dl Albumin/Globulin Ratio 1.0 (0.9-2) Lipase 228 (73-393) U/L Urine Color Urine Appearance (Clear) Urine pH (4.5-7.5) Ur Specific [place] (1.000-1.030) Urine Protein (Negative) Urine Glucose (UA) (Negative) Urine Ketones (Negative) Urine Blood (Negative) Urine Nitrite (Negative) Urine Bilirubin (Negative) Urine Urobilinogen (Negative) Ur Leukocyte Esterase (Negative) Blood Type Antibody Screen 07/29/19 07/29/19 07/29/19 Range/Units 23:22 23:22 23:47 WBC (4.8-10.8) K/uL RBC (4.2-5.4) M/uL Hgb (12.0-16.0) g/dL POC Hgb 13.9 (12.0-16.0) g/dl Hct (37-47) % POC Hct 41 (37-47) % MCV (80-100) fL MCH (25-34) pg MCHC (32-36) g/dL RDW Std Deviation (36.4-46.3) fL RDW Coeff of Eleazar (11.5-14.5) % Plt Count (130-400) K/uL MPV (7.4-10.4) fL Immature Gran % (Auto) % Neut % (Auto) % Lymph % (Auto) % [place] % (Auto) % Eos % (Auto) % Baso % (Auto) % Immature Gran # (Auto) (0.00-0.02) K/uL Neut # (Auto) (1.4-6.5) K/uL Lymph # (Auto) (1.2-3.4) K/uL [place] # (Auto) (0.11-0.59) K/uL Eos # (Auto) (0-0.5) K/uL Baso # (Auto) (0-0.2) K/uL Hypochromasia ABG pH (7.35-7.45) ABG pCO2 (35-46) mmHg ABG pO2 (80-95) mm/Hg ABG HCO3 (19-24) mmol/L ABG O2 Saturation (90-95) % ABG Base Excess (-9-1.8) mEq/L Tommie Test (Pos) VBG pH 7.21 L (7.36-7.41) VBG pCO2 77 H (38-50) mmHg VBG pO2 20 mmHg VBG HCO3 30 mmol/L VBG O2 Saturation < 60.0 % VBG Base Excess 0.5 mEq/L Barometric Pressure 736.6 mm/Hg Oxygen Given POC Sodium 138 (135-144) mEq/L Sodium (136-145) mmol/L POC Potassium 3.8 (3.3-5.0) mEq/L Potassium (3.5-5.1) mmol/L POC Chloride 97 L (101-112) mEq/L Chloride (98-107) mmol/L Carbon Dioxide (21-32) mmol/L POC Total CO2 30 (24-31) mEq/l Anion Gap (3-11) POC Anion Gap 15.0 L (16-25) mmol/L POC BUN 13 (7-18) mg/dl BUN (7-18) mg/dl Creatinine (0.6-1.2) mg/dl POC Creatinine 1.6 H (0.6-1.3) mg/dl Est Cr Clr Drug Dosing ml/min Est GFR ( Amer) Est GFR (Non-Af Amer) BUN/Creatinine Ratio (10-20) Glucose (70-99) mg/dl POC Glucose (other) 147 H (70-99) mg/dl Lactate (0.4-2.0) mmol/L Calcium (8.5-10.1) mg/dl POC Ioniz Calcium [place]acey 1.08 L (1.12-1.32) mmol/l Total Bilirubin (0.2-1) mg/dl AST (15-37) U/L ALT (12-78) U/L Alkaline Phosphatase (45-117) U/L Total Protein (6.4-8.2) gm/dl Albumin (3.4-5.0) gm/dl Globulin (2.5-4.0) gm/dl Albumin/Globulin Ratio (0.9-2) Lipase (73-393) U/L Urine Color Urine Appearance (Clear) Urine pH (4.5-7.5) Ur Specific [place] (1.000-1.030) Urine Protein (Negative) Urine Glucose (UA) (Negative) Urine Ketones (Negative) Urine Blood (Negative) Urine Nitrite (Negative) Urine Bilirubin (Negative) Urine Urobilinogen (Negative) Ur Leukocyte Esterase (Negative) Blood Type B Positive Antibody Screen NEGATIVE 07/30/19 07/30/19 Range/Units 00:47 01:23 WBC (4.8-10.8) K/uL RBC (4.2-5.4) M/uL Hgb (12.0-16.0) g/dL POC Hgb (12.0-16.0) g/dl Hct (37-47) % POC Hct (37-47) % MCV (80-100) fL MCH (25-34) pg MCHC (32-36) g/dL RDW Std Deviation (36.4-46.3) fL RDW Coeff of Eleazar (11.5-14.5) % Plt Count (130-400) K/uL MPV (7.4-10.4) fL Immature Gran % (Auto) % Neut % (Auto) % Lymph % (Auto) % [place] % (Auto) % Eos % (Auto) % Baso % (Auto) % Immature Gran # (Auto) (0.00-0.02) K/uL Neut # (Auto) (1.4-6.5) K/uL Lymph # (Auto) (1.2-3.4) K/uL [place] # (Auto) (0.11-0.59) K/uL Eos # (Auto) (0-0.5) K/uL Baso # (Auto) (0-0.2) K/uL Hypochromasia ABG pH 7.29 L (7.35-7.45) ABG pCO2 50 H (35-46) mmHg ABG pO2 94 (80-95) mm/Hg ABG HCO3 24 (19-24) mmol/L ABG O2 Saturation 95.5 H (90-95) % ABG Base Excess -3.0 (-9-1.8) mEq/L [place] Test POS (Pos) VBG pH (7.36-7.41) VBG pCO2 (38-50) mmHg VBG pO2 mmHg VBG HCO3 mmol/L VBG O2 Saturation % VBG Base Excess mEq/L Barometric Pressure 737.0 mm/Hg Oxygen Given 11 L POC Sodium (135-144) mEq/L Sodium (136-145) mmol/L POC Potassium (3.3-5.0) mEq/L Potassium (3.5-5.1) mmol/L POC Chloride (101-112) mEq/L Chloride (98-107) mmol/L Carbon Dioxide (21-32) mmol/L POC Total CO2 (24-31) mEq/l Anion Gap (3-11) POC Anion Gap (16-25) mmol/L POC BUN (7-18) mg/dl BUN (7-18) mg/dl Creatinine (0.6-1.2) mg/dl POC Creatinine (0.6-1.3) mg/dl Est Cr Clr Drug Dosing ml/min Est GFR ( Amer) Est GFR (Non-Af Amer) BUN/Creatinine Ratio (10-20) Glucose (70-99) mg/dl POC Glucose (other) (70-99) mg/dl Lactate (0.4-2.0) mmol/L Calcium (8.5-10.1) mg/dl POC Ioniz Calcium [place] (1.12-1.32) mmol/l Total Bilirubin (0.2-1) mg/dl AST (15-37) U/L ALT (12-78) U/L Alkaline Phosphatase (45-117) U/L Total Protein (6.4-8.2) gm/dl Albumin (3.4-5.0) gm/dl Globulin (2.5-4.0) gm/dl Albumin/Globulin Ratio (0.9-2) Lipase (73-393) U/L Urine Color Yellow Urine Appearance Clear (Clear) Urine pH 8.0 H (4.5-7.5) Ur Specific [place] 1.014 (1.000-1.030) Urine Protein Negative (Negative) Urine Glucose (UA) Negative (Negative) Urine Ketones Negative (Negative) Urine Blood Negative (Negative) Urine Nitrite Negative (Negative) Urine Bilirubin Negative (Negative) Urine Urobilinogen Negative (Negative) Ur Leukocyte Esterase Negative (Negative) Blood Type Antibody Screen Imaging Data Attestation: I personally reviewed and interpreted this imaging study as follows: My Impression: XR chest 1v portable stat: Trach was placed and noted. Left lower lobe infiltrate. No free air. Heart size normal. Changes new from 01/06/18 ECG Data Attestation: I personally reviewed and interpreted this ECG as follows: Indication: SOB/dyspnea Rate (beats per minute): 90 Rhythm: sinus rhythm Findings: + ST depression (diffuse); no PAC, no PVC and no ectopy Comparison ECG Date: from (04/30/18) Change: no significant change Blood Pressure Blood Pressure Findings: Low blood pressure Blood Pressure Disposition: further management by hospitalist [facility] Narrative The patient is a 69-year-old female who presented to the emergency department from her detention for lower GI bleeding symptoms. I received the prehospital notification about this patient as her respiratory status appeared to be extreme. The patient was initially transported via BLS because of the GI bleeding symptoms however it became obvious to the prehospital personnel that she may require airway management. ALS joined the crew and the patient was quickly evaluated and identified as having a significant respiratory problem. She has a history of a trach but at this time only has a stoma. There is significant secretions noted and the court liaison was able to place an endotracheal tube in the stoma with significant improvement in the patient's symptoms. She arrived at the emergency department with diminished breath sounds in the left lung field however I am unsure if the tube was too far in or if the patient was experiencing pneumonia symptoms because her chest x-ray did reveal a left lower lobe infiltrate. The tube was ultimately replaced over a bougie with a trach tube #4. This was done by myself and I was assisted by the respiratory technicians. The patient was placed on the ventilator for short period of time with significant improvement. She was further treated with IV fluids and IV antibiotics for presumed pneumonia. Further laboratory and radiographic studies were obtained. The patient did have heme positive stool but this appeared to be brown in her hemoglobin at this time was stable. I am unsure what was witnessed in the detention however further GI bleeding will definitely need to be explored. I discussed the patient's condition with the on-call [facility] hospitalist group. They have agreed to evaluate the patient in the emergency department for further management disposition. The patient was reevaluated multiple times. Impression & Plan Respiratory arrest, Respiratory failure, Left lower lobe pneumonia, Metabolic acidosis, Respiratory acidosis Critical Care Time Critical Care Time: Yes Total Critical Care Time: 60 I have personally spent greater than 60 minutes of critical care time in the direct management of this patient. This includes bedside care, interpretation of diagnostic studies, and testing, discussion with consultants, patient, and family members, and other required patient management activities. This 60 minutes is in excess of all separately billable procedures. Discharge Plan Visit Data *Final* Discharge Date/Time: 07/30/19 02:25 Chief Complaint: Respiratory Distress Stated Complaint: UNRESPONSIVE, GI BLEED ED Provider: Ras Arellano Discharge Problem: Respiratory arrest, Respiratory failure, Left lower lobe pneumonia, Metabolic acidosis, Respiratory acidosis Patient Disposition: Admitted As Inpatient Discharge Instructions Interventions: ED Discharge Assessment Last Done: 07/30/19 02:25 Discharge Problem: Respiratory failure Qualifiers: Chronicity: acute Respiratory failure complication: hypoxia and hypercapnia Qualified Code(s): J96.01 - Acute respiratory failure with hypoxia Left lower lobe pneumonia Qualifiers: Pneumonia type: due to unspecified organism Qualified Code(s): J18.1 - Lobar pneumonia, unspecified organism The scribe's documentation has been prepared under my direction and personally reviewed by me in its entirety. I confirm that the note above accurately reflects all work, treatment, procedures, and medical decision making performed by me.
[2019-07-30] MEDS ORDERED: MAGNESIUM HYDROXIDE SUSP 30 ML UDC PO PRN (01:04)
[2019-07-30 01:28] LABS: Appearance Urine Clear (Clear); Bilirubin Urine Negative (Negative); Blood Urine Negative (Negative); Color Urine Yellow; Glucose Urine UA Negative (Negative); Ketones Urine Negative (Negative); Leukocyte Esterase Urine Negative (Negative); Nitrite Urine Negative (Negative); Protein Urine Negative (Negative); Specific Gravity Urine 1.014 (1.000-1.030); Urobilinogen Urine Negative (Negative)
[2019-07-30 01:42] LABS: HCO3 ABG 24 mmol/L (19-24); Oxygen Saturation ABG 95.5 % (90-95); PCO2 ABG 50 mmHg (35-46); PO2 ABG 94 mm/Hg (80-95); pH ABG 7.29 (7.35-7.45)
[2019-07-30 01:43] LABS: Allen Test POS (Pos)
--- NOTE | 2019-07-30 01:49 | History & Physical Report ---
Date of Service July 30, 2019 Assessment & Plan (1) Respiratory failure: Pt is a 69 yo F extensive PMH laryngeal ca s/p laryngectomy with trach, h/o critical pna with respiratory arrest 2014, end stage COPD with chronic RF on 6L all day, CAD, hypothyroidism, chronic anemia, MSSA pna 2017, Breast ca, RLL lung ca, depression, anxiety who was transferred from [facility] via EMS for concerns of GI bleed, arrived in respiratory failure Resp failure in setting of severe COPD -Admit to ICU -Started on aztreonam and zyvox -Duonebs, solumedrol -ABG ordered -Probable contribution from aspiration LLL pna -Abx as above -Respiratory management per ICU -Steroids and nebs ordered -Swallow eval recommended Laryngeal cancer s/p trach placement -trach site intact, normal appearing -Recommend swallow eval CAD -Cont home meds if po meds tolerated Hypothyroid -Cont home meds if PO tolerated ?GI bleed -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 and TTP -Low threshold for further investigation DVTP: heparin Code: full per prev hx, no discussion w/ fam or patient Dispo: ICU admit (2) Left lower lobe pneumonia: (3) COPD (chronic obstructive pulmonary disease): (4) Laryngeal cancer: (5) Tracheostomy present: (6) Anxiety: (7) GERD (gastroesophageal reflux disease): History of Present Illness Chief Complaint: Unresponsiveness, respiratory distress Primary Care Provider: [facility] Pt is a 69 yo F extensive PMH laryngeal ca s/p laryngectomy with trach, h/o critical pna with respiratory arrest 2014, end stage COPD with chronic RF on 6L all day, CAD, hypothyroidism, chronic anemia, MSSA pna 2017, Breast ca, RLL lung ca, depression, anxiety who was transferred from [facility] via EMS for concerns of GI bleed. According to report, patient was lucid when it was noted she had dark tarry stool. EMS was transporting her to the ER when on transport she was noting to begin having respiratory difficulties. She was administered a neb en route, which did not help, she became difficult to arouse and required her trach site to be intubated with a 6-0 endotube. Pt agitated on arrival to ER, was given versed and endotube removed. Initial labs revealed elevated WBC of 30K, lactate 6.3, VBG pH of 7.21, VBG pCO2 77 (BMP CO2 27), Cr 1.6. Of note, hemoccult negative reported in ER. She was given a 1L bolus and given a dose of levaquin. On 11L via trach on assessment. Allergies Allergy/AdvReac Type Severity Reaction Status Date / Time alendronate sodium Allergy U UNK Verified 07/29/19 23:48 penicillin V Allergy U UNK Verified 07/29/19 23:48 Sulfa (Sulfonamide Allergy U UNKNOWN Verified 07/29/19 23:48 Antibiotics) sulfadiazine Allergy U Unknown Verified 07/29/19 23:48 morphine AdvReac PR itching Verified 07/29/19 23:48 Home Medications Home Medications Medication Instructions Recorded Confirmed Type NSS Nebulizer 1 dose NEB Q6H PRN #0 03/31/18 07/30/19 History peg 400-propylene glycol (PF) 0.4 1 drops OP QID PRN 11/15/18 07/30/19 History %-0.3 % eye drops in a dropperette sodium phosphates 19 gram-7 118 ml DE DAILY PRN 11/15/18 07/30/19 History gram/118 mL enema aspirin 81 mg PO DAILY 07/29/19 07/29/19 History benzocaine-menthol [Cepacol Sore 1 flo PO Q4H PRN 07/29/19 07/29/19 History Throat (luiza-men)] bisacodyl [Dulcolax (bisacodyl)] 10 mg DE DAILY PRN 07/29/19 07/29/19 History bismuth subsalicylate 525 mg PO Q6H PRN 07/29/19 07/29/19 History buspirone 15 mg PO TID 07/29/19 07/29/19 History furosemide [Lasix] 40 mg PO QAM 07/29/19 07/29/19 History guaifenesin 100 mg PO QID PRN 07/29/19 07/29/19 History levalbuterol HCl 1.25 mg INHALATION Q4H PRN 07/29/19 07/30/19 History lorazepam [Ativan] 0.5 mg PO BID PRN 07/29/19 07/29/19 History Maalox Plus 30 ml PO Q8H PRN 07/30/19 07/30/19 History Magic Swizzle 20 ml PO QID PRN 07/30/19 07/30/19 History Simply Saline 1 dose pk INHALATION Q6H PRN 07/30/19 07/30/19 History Systane Ultra Solution 1 drp QID PRN 07/30/19 07/30/19 History albuterol sulfate [Ventolin HFA] 2 puff INHALATION Q6H PRN 07/30/19 07/30/19 History loperamide 2 mg PO DIRECTED PRN 07/30/19 07/30/19 History magnesium hydroxide [Milk of 30 ml PO DAILY PRN 07/30/19 07/30/19 History Magnesia] metoprolol tartrate 25 mg PO BID 07/30/19 07/30/19 History omeprazole 20 mg PO BID 07/30/19 07/30/19 History oxycodone 5 mg PO Q6H PRN 07/30/19 07/30/19 History prednisone 10 mg PO DAILY 07/30/19 07/30/19 History ranitidine HCl 150 mg PO BID 07/30/19 07/30/19 History simethicone [Gas Relief 80] 80 mg PO Q6H PRN 07/30/19 07/30/19 History venlafaxine 75 mg PO DAILY 07/30/19 07/30/19 History Past Med/Surg History Medical History Anemia (Chronic) COPD (chronic obstructive pulmonary disease) (Chronic) Cholelithiasis (Chronic) Constipation (Chronic) Depression with anxiety (Chronic) Dysphagia (Chronic) Elevated hemidiaphragm (Chronic) Esophageal reflux (Chronic) Hyperlipemia (Chronic) Hypertension (Chronic) Hypothyroidism (Chronic) Laryngeal cancer (Chronic) 2008 Osteoarthritis (Chronic) Tachycardia (Chronic) Tracheostomy in place (Chronic) Ventral hernia (Chronic) Vitamin D deficiency (Chronic) History of radiation therapy (Resolved) Larynx: 02/25/09 - 04/09/09 Pleural effusion (Resolved) Surgical History History of bronchoscopy (Resolved) History of section (Resolved) 1979 x 1 History of laryngectomy (Resolved) 2008 History of radical neck dissection (Resolved) 2008 Family History Mother Alzheimer disease Age 91 - Alive and well Father , Passed age 85 of Non-Hodgkin's Lymphoma No problems noted. Family/Other Prostate cancer Sister , Passed age 64 of PR No problems noted. Sister No problems noted. Sister No problems noted. Sister No problems noted. Brother No problems noted. Son , Passed as child in MVA No problems noted. Son , Passed as child in MVA No problems noted. Son No problems noted. Son No problems noted. Daughter No problems noted. Social History Preferred Language: [place]ian Communication Ability: Impaired Visual Impairment: Limited Hearing Ability: Normal Transportation Superintendent Required: No Beliefs That Will Affect Care: None marital status: Current Living Situation: Assisted current occupational status: retired current occupation: Retired Feels Safe at Home: Yes Smoking Status: Unknown if ever smoked caffeine: Yes (0-1 cup / day ) during the past year weight has: remained stable Review of Systems Review of Systems: Unobtainable due to reduced consciousness Physical Exam Constitutional: + acute distress, + ill appearing, + thin, + cachectic, + frail appearing, + disheveled and + in distress Eyes: PERRL, conjunctivae normal, anicteric sclerae Neck: Tracheostomy site appears normal Respiratory: + respiratory distress, + labored breathing, + uses accessory muscles, + audible wheezes, + grunting and + stridor Auscultation: + diminished lung sounds, + rhonchi and + wheezes Cardiovascular: RRR, no murmur, no edema Gastrointestinal (Abdomen): Inspection/Auscultation: + abdomen distended Percussion/Palpation: + abdomen tender Rectal Exam: heme negative stool Skin: + turgor decreased Neurologic: + obtunded Results & Data Vital Signs (Past 12 Hours) Vital Signs Temp Pulse Pulse Resp BP Pulse Ox 07/30/19 01:15 87 19 82/73 L 100 07/30/19 01:01 86 21 110/61 07/30/19 01:00 86 25 H 07/30/19 00:46 93 H 24 118/75 96 07/30/19 00:45 88 26 H 07/30/19 00:36 83 22 96 09/18/19 00:31 84 22 104/76 09/18/19 00:30 84 22 07/30/19 00:17 82 24 07/30/19 00:16 82 26 H 100/53 L 07/30/19 00:15 83 25 H 07/30/19 00:01 100/62 07/29/19 23:46 62 22 88/49 L 95 07/29/19 23:45 87 24 95 07/29/19 23:33 90 24 07/29/19 23:32 90 17 82/60 L 07/29/19 23:30 88 17 07/29/19 23:23 95 H 23 130/82 94 07/29/19 23:15 95 H 25 H 86 L 07/29/19 23:13 94 H 24 96 07/29/19 23:11 94 H 23 174/127 H 98 07/29/19 23:07 99.1 F 95 H 20 174/127 H 97 Laboratory Results 07/30/19 07/30/19 07/30/19 Range/Units 03:04 03:04 01:23 WBC (4.8-10.8) K/uL RBC (4.2-5.4) M/uL Hgb (12.0-16.0) g/dL POC Hgb (12.0-16.0) g/dl Hct (37-47) % POC Hct (37-47) % MCV (80-100) fL MCH (25-34) pg MCHC (32-36) g/dL RDW Std Deviation (36.4-46.3) fL RDW Coeff of Eleazar (11.5-14.5) % Plt Count (130-400) K/uL MPV (7.4-10.4) fL Immature Gran % (Auto) % Neut % (Auto) % Lymph % (Auto) % [place] % (Auto) % Eos % (Auto) % Baso % (Auto) % Immature Gran # (Auto) (0.00-0.02) K/uL Neut # (Auto) (1.4-6.5) K/uL Lymph # (Auto) (1.2-3.4) K/uL [place] # (Auto) (0.11-0.59) K/uL Eos # (Auto) (0-0.5) K/uL Baso # (Auto) (0-0.2) K/uL Hypochromasia ABG pH 7.29 L (7.35-7.45) ABG pCO2 50 H (35-46) mmHg ABG pO2 94 (80-95) mm/Hg ABG HCO3 24 (19-24) mmol/L ABG O2 Saturation 95.5 H (90-95) % ABG Base Excess -3.0 (-9-1.8) mEq/L Tommie Test POS (Pos) VBG pH (7.36-7.41) VBG pCO2 (38-50) mmHg VBG pO2 mmHg VBG HCO3 mmol/L VBG O2 Saturation % VBG Base Excess mEq/L Barometric Pressure 737.0 mm/Hg Oxygen Given 11 L POC Sodium (135-144) mEq/L Sodium (136-145) mmol/L POC Potassium (3.3-5.0) mEq/L Potassium (3.5-5.1) mmol/L POC Chloride (101-112) mEq/L Chloride (98-107) mmol/L Carbon Dioxide (21-32) mmol/L POC Total CO2 (24-31) mEq/l Anion Gap (3-11) POC Anion Gap (16-25) mmol/L POC BUN (7-18) mg/dl BUN (7-18) mg/dl Creatinine (0.6-1.2) mg/dl POC Creatinine (0.6-1.3) mg/dl Est Cr Clr Drug Dosing ml/min Est GFR ( Amer) Est GFR (Non-Af Amer) BUN/Creatinine Ratio (10-20) Glucose (70-99) mg/dl POC Glucose 120 H (70-99) POC Glucose (other) (70-99) mg/dl Lactate Pending (0.4-2.0) mmol/L Calcium (8.5-10.1) mg/dl POC Ioniz Calcium Kacey (1.12-1.32) mmol/l Total Bilirubin (0.2-1) mg/dl AST (15-37) U/L ALT (12-78) U/L Alkaline Phosphatase (45-117) U/L Total Protein (6.4-8.2) gm/dl Albumin (3.4-5.0) gm/dl Globulin (2.5-4.0) gm/dl Albumin/Globulin Ratio (0.9-2) Lipase (73-393) U/L Urine Color Urine Appearance (Clear) Urine pH (4.5-7.5) Ur Specific [place] (1.000-1.030) Urine Protein (Negative) Urine Glucose (UA) (Negative) Urine Ketones (Negative) Urine Blood (Negative) Urine Nitrite (Negative) Urine Bilirubin (Negative) Urine Urobilinogen (Negative) Ur Leukocyte Esterase (Negative) Blood Type Antibody Screen 07/30/19 07/29/19 07/29/19 Range/Units 00:47 23:47 23:22 WBC (4.8-10.8) K/uL RBC (4.2-5.4) M/uL Hgb (12.0-16.0) g/dL POC Hgb 13.9 (12.0-16.0) g/dl Hct (37-47) % POC Hct 41 (37-47) % MCV (80-100) fL MCH (25-34) pg MCHC (32-36) g/dL RDW Std Deviation (36.4-46.3) fL RDW Coeff of Eleazar (11.5-14.5) % Plt Count (130-400) K/uL MPV (7.4-10.4) fL Immature Gran % (Auto) % Neut % (Auto) % Lymph % (Auto) % [place] % (Auto) % Eos % (Auto) % Baso % (Auto) % Immature Gran # (Auto) (0.00-0.02) K/uL Neut # (Auto) (1.4-6.5) K/uL Lymph # (Auto) (1.2-3.4) K/uL [place] # (Auto) (0.11-0.59) K/uL Eos # (Auto) (0-0.5) K/uL Baso # (Auto) (0-0.2) K/uL Hypochromasia ABG pH (7.35-7.45) ABG pCO2 (35-46) mmHg ABG pO2 (80-95) mm/Hg ABG HCO3 (19-24) mmol/L ABG O2 Saturation (90-95) % ABG Base Excess (-9-1.8) mEq/L Tom[place] Test (Pos) VBG pH 7.21 L (7.36-7.41) VBG pCO2 77 H (38-50) mmHg VBG pO2 20 mmHg VBG HCO3 30 mmol/L VBG O2 Saturation < 60.0 % VBG Base Excess 0.5 mEq/L Barometric Pressure 736.6 mm/Hg Oxygen Given POC Sodium 138 (135-144) mEq/L Sodium (136-145) mmol/L POC Potassium 3.8 (3.3-5.0) mEq/L Potassium (3.5-5.1) mmol/L POC Chloride 97 L (101-112) mEq/L Chloride (98-107) mmol/L Carbon Dioxide (21-32) mmol/L POC Total CO2 30 (24-31) mEq/l Anion Gap (3-11) POC Anion Gap 15.0 L (16-25) mmol/L POC BUN 13 (7-18) mg/dl BUN (7-18) mg/dl Creatinine (0.6-1.2) mg/dl POC Creatinine 1.6 H (0.6-1.3) mg/dl Est Cr Clr Drug Dosing ml/min Est GFR ( Amer) Est GFR (Non-Af Amer) BUN/Creatinine Ratio (10-20) Glucose (70-99) mg/dl POC Glucose (70-99) POC Glucose (other) 147 H (70-99) mg/dl Lactate (0.4-2.0) mmol/L Calcium (8.5-10.1) mg/dl POC Ioniz Calcium [place] 1.08 L (1.12-1.32) mmol/l Total Bilirubin (0.2-1) mg/dl AST (15-37) U/L ALT (12-78) U/L Alkaline Phosphatase (45-117) U/L Total Protein (6.4-8.2) gm/dl Albumin (3.4-5.0) gm/dl Globulin (2.5-4.0) gm/dl Albumin/Globulin Ratio (0.9-2) Lipase (73-393) U/L Urine Color Yellow Urine Appearance Clear (Clear) Urine pH 8.0 H (4.5-7.5) Ur Specific [place] 1.014 (1.000-1.030) Urine Protein Negative (Negative) Urine Glucose (UA) Negative (Negative) Urine Ketones Negative (Negative) Urine Blood Negative (Negative) Urine Nitrite Negative (Negative) Urine Bilirubin Negative (Negative) Urine Urobilinogen Negative (Negative) Ur Leukocyte Esterase Negative (Negative) Blood Type Antibody Screen 07/29/19 07/29/19 07/29/19 Range/Units 23:22 23:22 23:22 WBC (4.8-10.8) K/uL RBC (4.2-5.4) M/uL Hgb (12.0-16.0) g/dL POC Hgb (12.0-16.0) g/dl Hct (37-47) % POC Hct (37-47) % MCV (80-100) fL MCH (25-34) pg MCHC (32-36) g/dL RDW Std Deviation (36.4-46.3) fL RDW Coeff of Eleazar (11.5-14.5) % Plt Count (130-400) K/uL MPV (7.4-10.4) fL Immature Gran % (Auto) % Neut % (Auto) % Lymph % (Auto) % [place] % (Auto) % Eos % (Auto) % Baso % (Auto) % Immature Gran # (Auto) (0.00-0.02) K/uL Neut # (Auto) (1.4-6.5) K/uL Lymph # (Auto) (1.2-3.4) K/uL [place] # (Auto) (0.11-0.59) K/uL Eos # (Auto) (0-0.5) K/uL Baso # (Auto) (0-0.2) K/uL Hypochromasia ABG pH (7.35-7.45) ABG pCO2 (35-46) mmHg ABG pO2 (80-95) mm/Hg ABG HCO3 (19-24) mmol/L ABG O2 Saturation (90-95) % ABG Base Excess (-9-1.8) mEq/L Tommie Test (Pos) VBG pH (7.36-7.41) VBG pCO2 (38-50) mmHg VBG pO2 mmHg VBG HCO3 mmol/L VBG O2 Saturation % VBG Base Excess mEq/L Barometric Pressure mm/Hg Oxygen Given POC Sodium (135-144) mEq/L Sodium 137 (136-145) mmol/L POC Potassium (3.3-5.0) mEq/L Potassium 3.7 (3.5-5.1) mmol/L POC Chloride (101-112) mEq/L Chloride 100 (98-107) mmol/L Carbon Dioxide 27 (21-32) mmol/L POC Total CO2 (24-31) mEq/l Anion Gap 10.0 (3-11) POC Anion Gap (16-25) mmol/L POC BUN (7-18) mg/dl BUN 13 (7-18) mg/dl Creatinine 1.61 H (0.6-1.2) mg/dl POC Creatinine (0.6-1.3) mg/dl Est Cr Clr Drug Dosing 28.4 ml/min Est GFR ( Amer) 37.7 Est GFR (Non-Af Amer) 32.5 BUN/Creatinine Ratio 8.3 L (10-20) Glucose 149 H (70-99) mg/dl POC Glucose (70-99) POC Glucose (other) (70-99) mg/dl Lactate 6.3 H* (0.4-2.0) mmol/L Calcium 9.0 (8.5-10.1) mg/dl POC Ioniz Calcium [place] (1.12-1.32) mmol/l Total Bilirubin 0.3 (0.2-1) mg/dl AST 18 (15-37) U/L ALT 17 (12-78) U/L Alkaline Phosphatase 125 H (45-117) U/L Total Protein 8.2 (6.4-8.2) gm/dl Albumin 4.1 (3.4-5.0) gm/dl Globulin 4.1 H (2.5-4.0) gm/dl Albumin/Globulin Ratio 1.0 (0.9-2) Lipase 228 (73-393) U/L Urine Color Urine Appearance (Clear) Urine pH (4.5-7.5) Ur Specific [place] (1.000-1.030) Urine Protein (Negative) Urine Glucose (UA) (Negative) Urine Ketones (Negative) Urine Blood (Negative) Urine Nitrite (Negative) Urine Bilirubin (Negative) Urine Urobilinogen (Negative) Ur Leukocyte Esterase (Negative) Blood Type B Positive Antibody Screen NEGATIVE 07/29/19 Range/Units 23:22 WBC 30.65 H* (4.8-10.8) K/uL RBC 5.50 H (4.2-5.4) M/uL Hgb 12.0 (12.0-16.0) g/dL POC Hgb (12.0-16.0) g/dl Hct 41.2 (37-47) % POC Hct (37-47) % MCV 74.9 L (80-100) fL MCH 21.8 L (25-34) pg MCHC 29.1 L (32-36) g/dL RDW Std Deviation 44.6 (36.4-46.3) fL RDW Coeff of Eleazar 16.5 H (11.5-14.5) % Plt Count 341 (130-400) K/uL MPV 9.7 (7.4-10.4) fL Immature Gran % (Auto) 0.4 % Neut % (Auto) 89.0 % Lymph % (Auto) 6.4 % [place] % (Auto) 3.8 % Eos % (Auto) 0.3 % Baso % (Auto) 0.1 % Immature Gran # (Auto) 0.11 H (0.00-0.02) K/uL Neut # (Auto) 27.29 H (1.4-6.5) K/uL Lymph # (Auto) 1.95 (1.2-3.4) K/uL [place] # (Auto) 1.18 H (0.11-0.59) K/uL Eos # (Auto) 0.09 (0-0.5) K/uL Baso # (Auto) 0.03 (0-0.2) K/uL Hypochromasia Present ABG pH (7.35-7.45) ABG pCO2 (35-46) mmHg ABG pO2 (80-95) mm/Hg ABG HCO3 (19-24) mmol/L ABG O2 Saturation (90-95) % ABG Base Excess (-9-1.8) mEq/L Tommie Test (Pos) VBG pH (7.36-7.41) VBG pCO2 (38-50) mmHg VBG pO2 mmHg VBG HCO3 mmol/L VBG O2 Saturation % VBG Base Excess mEq/L Barometric Pressure mm/Hg Oxygen Given POC Sodium (135-144) mEq/L Sodium (136-145) mmol/L POC Potassium (3.3-5.0) mEq/L Potassium (3.5-5.1) mmol/L POC Chloride (101-112) mEq/L Chloride (98-107) mmol/L Carbon Dioxide (21-32) mmol/L POC Total CO2 (24-31) mEq/l Anion Gap (3-11) POC Anion Gap (16-25) mmol/L POC BUN (7-18) mg/dl BUN (7-18) mg/dl Creatinine (0.6-1.2) mg/dl POC Creatinine (0.6-1.3) mg/dl Est Cr Clr Drug Dosing ml/min Est GFR ( Amer) Est GFR (Non-Af Amer) BUN/Creatinine Ratio (10-20) Glucose (70-99) mg/dl POC Glucose (70-99) POC Glucose (other) (70-99) mg/dl Lactate (0.4-2.0) mmol/L Calcium (8.5-10.1) mg/dl POC Ioniz Calcium [place] (1.12-1.32) mmol/l Total Bilirubin (0.2-1) mg/dl AST (15-37) U/L ALT (12-78) U/L Alkaline Phosphatase (45-117) U/L Total Protein (6.4-8.2) gm/dl Albumin (3.4-5.0) gm/dl Globulin (2.5-4.0) gm/dl Albumin/Globulin Ratio (0.9-2) Lipase (73-393) U/L Urine Color Urine Appearance (Clear) Urine pH (4.5-7.5) Ur Specific [place] (1.000-1.030) Urine Protein (Negative) Urine Glucose (UA) (Negative) Urine Ketones (Negative) Urine Blood (Negative) Urine Nitrite (Negative) Urine Bilirubin (Negative) Urine Urobilinogen (Negative) Ur Leukocyte Esterase (Negative) Blood Type Antibody Screen Code Status & VTE Plan Code Status Full per prev admission; have not discussed with pt or family VTE Prophylaxis Plan VTE Prophylaxis will be ordered: Yes Critical Care Time Critical Care Time: Yes Total Critical Care Time: 40 Total critical care time 40 minutes Supervising Physician Co-Signing Physician Notes Attending addendum: I have physically seen this patient, have supervised the medical residents activities, and agree with the H&P unless as otherwise noted. Assessment and Plan: Acute respiratory failure/left lower lobe pneumonia/COPD exacerbation- Admission to the ICU. Zyvox 600 mg IV every 12 hours Aztreonam 1 g IV every 12 hours. Duonebs every 4 hours while awake and every 2 hours when necessary. Solu-Medrol IV. Follow sputum Gram stain and cultures. Zofran 4 mg IV every 6 hours PRN. famotidine 20 mg IV every 12 hours Routine trach care Remainder of orders and notations as noted. PG Care Time/CCT Total # of Minutes Spent Total Time Spent with Patient: Total time spent is greater than 50% in coordination of care (as documented) at patient's floor/unit and/or counseling patient: Critical Care Time: Yes Total Critical Care Time: 40 Resident Activity Tracking Resident Involvement: Resident Care Provided Care Provided: Adult Hospital Medicine (1) Respiratory failure Chronicity: acute Respiratory failure complication: hypoxia and hypercapnia Qualified Code(s): J96.01 - Acute respiratory failure with hypoxia; J96.02 - Acute respiratory failure with hypercapnia (2) Left lower lobe pneumonia Pneumonia type: due to unspecified organism Qualified Code(s): J18.1 - Lobar pneumonia, unspecified organism
[2019-07-30] MEDS ORDERED: ICU PROTOCOL FOR HYPERGLYCEMIA PRN (02:47)
[2019-07-30] MEDS: ALBUT/IPRATROP 3MG/0.5MG NEB 3 ML VIAL NEB SCH ×6 (03:10→23:20)
[2019-07-30] MEDS ORDERED: VANCOMYCIN CONSULT ACTIVE PRN ×2 (03:41)
[2019-07-30] MEDS ORDERED: AZTREONAM CONSULT ACTIVE PRN (03:42)
[2019-07-30] MEDS ORDERED: CEFEPIME 2,000 MG in SYRINGE 7.5 ML IV SCH (04:00)
[2019-07-30] MEDS ORDERED: CEFEPIME 1,000 MG in SYRINGE 0 ML IV SCH (04:00)
[2019-07-30] MEDS ORDERED: CEFEPIME CONSULT ACTIVE PRN (04:08)
[2019-07-30] MEDS ORDERED: PNEUMOCOCCAL POLYSACCHARIDES 25 MCG/0.5 ML VIAL/SYR IM ONE (04:15)
[2019-07-30] MEDS ORDERED: PNEUMOCOCCAL ADMINISTRATION CHARGE ONE (04:15)
--- NOTE | 2019-07-30 04:19 | Critical Care Consultation ---
Date of Consultation July 30, 2019 Assessment & Plan (1) Respiratory failure: Reason Critically Ill: 69-year-old female presents with respiratory failure with concern for pneumonia on COPD, complicated by abdominal distention and tenderness with dilation of colon on imaging. Neuro - [facility] ICU: [facility] Cardiac - CAD/HTNcontinue ASA, holding antihypertensives for now as patient's pressures are soft Respiratory - Respiratory failurepatient has end-stage COPD with oxygen requirements of 6 L to trach collar at baseline -Patient had history of laryngeal cancer with laryngectomy and tracheostomy in 2008 -she became unresponsive during respiratory distress in route to hospital and was intubated by EMS via trach with 6.0 ETT -Now changed to trach and cuff inflated, on trach collar 70 percent humidified -CXR showed left lower lobe infiltrates likely indicative of pneumonia possibly from aspiration -ABG: pH 7.2 //24 -Treating for pneumonia, see ID below -Continue nebs, IV steroids GI - Dilation of colon/abdominal tendernesspatient complained of abdominal tenderness in the setting of distended abdomen with elevated lactate -KUB was concerning for possible volvulus, however no read from radiology -CT abdomen was ordered and general surgery stat consulted -CT abdomen showed dilation of colon with bowel gas patterns, per general surgery's conversation with radiology there is no volvulus, follow general surgery's recommendations -Gastroenterology now consult, will follow recommendations -Antibiotics broadened, see ID below -Trending lactate, continue IV fluids -N.p.o. for now RENAL/LYTES - IZABEL on CKDinitial creatinine 1.6 with baseline 1.0 on previous admissions -Now downtrending, will continue to monitor with routine BMPs -Continue IV fluids -Avoid nephrotoxins, avoid contrast if able - Foleystrict I's and O's ENDO - Hyperglycemia protocol HEME - Hemoccult reportedly negative and ED, however there were concerns at the assisted for black tarry stools/GI bleed H&H remained stable at this time, will continue to trend with routine CBCs ID - Blood cultures and trach sputum pending, UA negative Patient has history of MRSA and MSSA infections Lactate and procalcitonin elevated, WBC of 30,000 Antibiotics broadened to cefepime, Vanco, Flagyl to cover potential abdominal source along with pulmonary source LINES/IV ACCESS - Peripheral IVs, [place] DVT PROPHYLAXIS - SCDs, heparin I have personally spent 50 minutes of critical care time in the direct management of this patient. This is a life/limb threatening event. This includes time spent evaluating patient, direct bedside care, chart review, placing orders, interpretation of diagnostic studies, discussion with consultants, patient, and family members, as well as other required patient management activities. This time is exclusive of all separately billable procedures, and teaching time and separate from and in addition to any other critical care service time. Thank you for allowing us to participate in the care of this patient. Please refer to my attending physician's documentation for any further recommendations. (2) Dilatation of colon: (3) Metabolic acidosis: (4) Left lower lobe pneumonia: (5) COPD (chronic obstructive pulmonary disease): Present on Admission?: Yes Supervising Physician Co-Signing Physician Notes Patient seen and examined today. She appears to be improving overall. She still has a distended abdomen. Surgery and GI have both evaluated her and feel there is a possibility that she had ischemic bowel. Her lactate is improving. She says she had 2 bowel movements yesterday. There was some report of melanotic stools. We are trending her hemoglobin. Continue PPIs. She did have some respiratory failure yesterday with hypoxemic and hypercapnic elements. She is improving today and we are weaning her oxygen to percent FiO2 via trach collar. Continue set vancomycin and cefepime. Obtain MRSA swab. Follow procalcitonin. It was elevated to 12 yesterday. Follow-up procalcitonin tomorrow. Follow sputum and blood cultures. Urinalysis was negative. She also had an IZABEL which is now resolving with fluids. She does have a right lower lobe groundglass nodule which is highly suspicious for possible adenocarcinoma in situ. This needs follow-up as an outpatient. Patient is stable for transfer to the floor with telemetry. History of Present Illness Attending Physician: Ihsan Sorto MD History of Present Illness Ms. Maria is a 69-year-old female with past medical history significant for laryngeal cancer 2008 resulting in laryngectomy and trach, end-stage COPD on 6 L nasal cannula at home, RLL lung cancer, anxiety and depression, CAD, hypothyroidism, anemia who presented today to the emergency department from [facility]. She reportedly had 2 dark tarry stools earlier yesterday and there was concern for GI bleed. She was taken to the emergency department by EMS, and while in route was having respiratory distress. She was given a neb without improvement and became difficult to arouse. At that point EMS intubated her trach site with a 6.0 endotracheal tube. This was exchanged for a trach in the emergency department. In the ED she was found to have a WBC of 30 K, lactate 6.3, and showed bilateral infiltrates on chest x-ray. She was initially placed on ventilator however has been transitioned to trach collar at 70%. On arrival to the ICU, patient was found to have abdominal tenderness and distention. KUB was ordered, there was concern with bowel patterns however no radiology read. CT of the abdomen was ordered and there was concern for gas bowel patterns without official radiology read. General surgery was immediately consulted and following. Gastroenterology is also following along with palliative care. Patient to remain in ICU for now. Allergies Allergy/AdvReac Type Severity Reaction Status Date / Time alendronate sodium Allergy U UNK Verified 07/29/19 23:48 penicillin V Allergy U UNK Verified 07/29/19 23:48 Sulfa (Sulfonamide Allergy U UNKNOWN Verified 07/29/19 23:48 Antibiotics) sulfadiazine Allergy U Unknown Verified 07/29/19 23:48 morphine AdvReac [place] itching Verified 07/29/19 23:48 Home Medications Home Medications Medication Instructions Recorded Confirmed Type NSS Nebulizer 1 dose NEB Q6H PRN #0 03/31/18 07/30/19 History peg 400-propylene glycol (PF) 0.4 1 drops OP QID PRN 11/15/18 07/30/19 History %-0.3 % eye drops in a dropperette sodium phosphates 19 gram-7 118 ml NC DAILY PRN 11/15/18 07/30/19 History gram/118 mL enema aspirin 81 mg PO DAILY 07/29/19 07/29/19 History benzocaine-menthol [Cepacol Sore 1 flo PO Q4H PRN 07/29/19 07/29/19 History Throat (luiza-men)] bisacodyl [Dulcolax (bisacodyl)] 10 mg NC DAILY PRN 07/29/19 07/29/19 History bismuth subsalicylate 525 mg PO Q6H PRN 07/29/19 07/29/19 History buspirone 15 mg PO TID 07/29/19 07/29/19 History furosemide [Lasix] 40 mg PO QAM 07/29/19 07/29/19 History guaifenesin 100 mg PO QID PRN 07/29/19 07/29/19 History levalbuterol HCl 1.25 mg INHALATION Q4H PRN 07/29/19 07/30/19 History lorazepam [Ativan] 0.5 mg PO BID PRN 07/29/19 07/29/19 History Maalox Plus 30 ml PO Q8H PRN 07/30/19 07/30/19 History Magic Swizzle 20 ml PO QID PRN 07/30/19 07/30/19 History Simply Saline 1 dose pk INHALATION Q6H PRN 07/30/19 07/30/19 History Systane Ultra Solution 1 drp QID PRN 07/30/19 07/30/19 History albuterol sulfate [Ventolin HFA] 2 puff INHALATION Q6H PRN 07/30/19 07/30/19 History loperamide 2 mg PO DIRECTED PRN 07/30/19 07/30/19 History magnesium hydroxide [Milk of 30 ml PO DAILY PRN 07/30/19 07/30/19 History Magnesia] metoprolol tartrate 25 mg PO BID 07/30/19 07/30/19 History omeprazole 20 mg PO BID 07/30/19 07/30/19 History oxycodone 5 mg PO Q6H PRN 07/30/19 07/30/19 History prednisone 10 mg PO DAILY 07/30/19 07/30/19 History ranitidine HCl 150 mg PO BID 07/30/19 07/30/19 History simethicone [Gas Relief 80] 80 mg PO Q6H PRN 07/30/19 07/30/19 History venlafaxine 75 mg PO DAILY 07/30/19 07/30/19 History Patient History Medical History Anemia (Chronic) COPD (chronic obstructive pulmonary disease) (Chronic) Cholelithiasis (Chronic) Constipation (Chronic) Depression with anxiety (Chronic) Dysphagia (Chronic) Elevated hemidiaphragm (Chronic) Esophageal reflux (Chronic) Hyperlipemia (Chronic) Hypertension (Chronic) Hypothyroidism (Chronic) Laryngeal cancer (Chronic) 2008 Osteoarthritis (Chronic) Tachycardia (Chronic) Tracheostomy in place (Chronic) Ventral hernia (Chronic) Vitamin D deficiency (Chronic) History of radiation therapy (Resolved) Larynx: 02/25/09 - 04/09/09 Pleural effusion (Resolved) Surgical History History of bronchoscopy (Resolved) History of section (Resolved) 1979 x 1 History of laryngectomy (Resolved) 2008 History of radical neck dissection (Resolved) 2008 Family History Mother Alzheimer disease Age 91 - Alive and well Father , Passed age 85 of Non-Hodgkin's Lymphoma No problems noted. Family/Other Prostate cancer Sister , Passed age 64 of [place] No problems noted. Sister No problems noted. Sister No problems noted. Sister No problems noted. Brother No problems noted. Son , Passed as child in MVA No problems noted. Son , Passed as child in MVA No problems noted. Son No problems noted. Son No problems noted. Daughter No problems noted. Social History Preferred Language: Jordanian Communication Ability: Impaired Visual Impairment: Limited Hearing Ability: Normal Debit Agent Required: No Beliefs That Will Affect Care: None marital status: Current Living Situation: Senior Living current occupational status: retired current occupation: Retired Feels Safe at Home: Yes Smoking Status: Unknown if ever smoked caffeine: Yes (0-1 cup / day ) during the past year weight has: remained stable Review of Systems Review of Systems: Unobtainable due to endotracheal tube Physical Exam Constitutional: + frail appearing and + lethargic Eyes: PERRL, conjunctivae normal, anicteric sclerae Neck: Tracheostomy present, trachea midline Respiratory: Tachypnea, normal respiratory effort, lungs clear to auscultation bilaterally with diminished bases Cardiovascular: RRR, no murmur, no edema Heart Sounds: normal S1 and normal S2 Vessels: no JVD Extremities: normal capillary refill; no edema Gastrointestinal (Abdomen): Abdomen distended and tender, bowel sounds normal Skin: no rashes, warm and dry Neurologic: Unable to assess at this time Psychiatric: Unable to assess at this time Genitourinary: Freedman Results & Data Vital Signs (Past 12 Hours) Vital Signs Temp Pulse Pulse Resp BP BP Pulse Ox 07/30/19 03:16 79 24 98 07/30/19 03:08 36.9 C 78 24 122/73 94 07/30/19 03:01 79 21 94/59 L 96 07/30/19 03:00 79 26 H 97 07/30/19 02:33 83 20 122/73 95 07/30/19 01:45 84 21 102/83 80 L 07/30/19 01:31 84 36 H 108/58 L 94 07/30/19 01:30 87 34 H 100 07/30/19 01:15 87 19 82/73 L 100 07/30/19 01:01 86 21 110/61 07/30/19 01:00 86 25 H 07/30/19 00:46 93 H 24 118/75 96 07/30/19 00:45 88 26 H 07/30/19 00:36 83 22 96 07/30/19 00:31 84 22 104/76 07/30/19 00:30 84 22 07/30/19 00:17 82 24 07/30/19 00:16 82 26 H 100/53 L 07/30/19 00:15 83 25 H 07/30/19 00:01 100/62 07/29/19 23:46 62 22 88/49 L 95 07/29/19 23:45 87 24 95 07/29/19 23:33 90 24 07/29/19 23:32 90 17 82/60 L 07/29/19 23:30 88 17 07/29/19 23:23 95 H 23 130/82 94 07/29/19 23:15 95 H 25 H 86 L 07/29/19 23:13 94 H 24 96 07/29/19 23:11 94 H 23 174/127 H 98 07/29/19 23:07 37.3 C 95 H 20 174/127 H 97 PG Care Time/CCT Total # of Minutes Spent Total Time Spent: 50 Total Time Spent with Patient: Total time spent is greater than 50% in coordination of care (as documented) at patient's floor/unit and/or counseling patient: (1) Respiratory failure Chronicity: acute Respiratory failure complication: hypoxia and hypercapnia Qualified Code(s): J96.01 - Acute respiratory failure with hypoxia; J96.02 - Acute respiratory failure with hypercapnia (2) Left lower lobe pneumonia Pneumonia type: due to unspecified organism Qualified Code(s): J18.1 - Lobar pneumonia, unspecified organism
[2019-07-30 04:25] LABS: Hematocrit (blood only) 33.6 % (37-47); Hemoglobin 9.6 g/dL (12.0-16.0); Mean Corpuscular Hemoglobin 21.3 pg (25-34); Mean Corpuscular Hgb Conc 28.6 g/dL (32-36); Mean Corpuscular Volume 74.7 fL (80-100); Mean Platelet Volume 9.4 fL (7.4-10.4); Platelet Count 217 K/uL (130-400); RDW Coefficient of Variation 16.2 % (11.5-14.5); RDW Standard Deviation 44.4 fL (36.4-46.3); White Blood Count 23.03 K/uL (4.8-10.8)
[2019-07-30 04:37] LABS: BUN Creatinine Ratio 8.4 (10-20); Blood Urea Nitrogen 11 mg/dl (7-18); Carbon Dioxide 27 mmol/L (21-32); Chloride 106 mmol/L (98-107); Creatinine Clr Calc Pharmacy 33.7 ml/min; Est GFR (African American) 50.2; Est GFR (Non-African American) 43.3; Glucose 107 mg/dl (70-99); Potassium 3.6 mmol/L (3.5-5.1); Sodium 140 mmol/L (136-145); Troponin I < 0.015 ng/ml (0-0.045)
[2019-07-30] MEDS: metroNIDAZOLE 500 MG/100 ML BAG IV SCH ×3 (04:45→19:47)
[2019-07-30 04:50] LABS: Basophils # (auto) 0.01 K/uL (0-0.2); Eosinophils # (auto) 0.02 K/uL (0-0.5); Eosinophils % (auto) 0.1 %; Hypochromasia Present; Immature Granulocytes # (auto) 0.08 K/uL (0.00-0.02); Immature Granulocytes % (auto) 0.3 %; Lymphocytes # (auto) 0.82 K/uL (1.2-3.4); Lymphocytes % (auto) 3.6 %; Monocytes # (auto) 0.91 K/uL (0.11-0.59); Neutrophils # (auto) 21.19 K/uL (1.4-6.5)
--- NOTE | 2019-07-30 05:13 | Surgery Consultation ---
Date of Consultation July 30, 2019 Assessment & Plan (1) Dilatation of colon: Patient admitted with history of possible melena with black stool And respiratory arrest now on O2 mask She does not appear toxic or unstable from the standpoint of her abdomen She does not have peritonitis I reviewed the CAT scan with the remote radiologist and he feels her primary problem Appears to be aspiration pneumonia bilateral consolidation she does not have any evidence of bowel obstruction or volvulus and her colon is dilated From 6 to 8 cm mostly involving her transverse and descending colon-there is some concern For ischemic colitis but it does not appear to require urgent surgery I do not feel that she requires emergent surgery and I have asked the toy stuffer To see the patient She is currently on IV antibiotics which I would continue I will follow her closely History of Present Illness Attending Physician: Ihsan Sorto MD I was called to see the patient with a distended colon and possible volvulus She was brought by ambulance to the hospital from [facility] with a history of Having large black tarry stool and respiratory distress. She has a tracheostomy from Laryngectomy for laryngeal cancer. She had thick secretions ambulance and required intubation She was noted with abdominal distention and a KUB showed dilated colon. Her white blood cell count is 30,000 H&H 12/41, lactic acid 3.8 Her urine output has been over 950 cc while in the ICU for a short while Allergies Allergy/AdvReac Type Severity Reaction Status Date / Time alendronate sodium Allergy U UNK Verified 07/29/19 23:48 penicillin V Allergy U UNK Verified 07/29/19 23:48 Sulfa (Sulfonamide Allergy U UNKNOWN Verified 07/29/19 23:48 Antibiotics) sulfadiazine Allergy U Unknown Verified 07/29/19 23:48 morphine AdvReac [place] itching Verified 07/29/19 23:48 Home Medications Home Medications Medication Instructions Recorded Confirmed Type NSS Nebulizer 1 dose NEB Q6H PRN #0 03/31/18 07/30/19 History peg 400-propylene glycol (PF) 0.4 1 drops OP QID PRN 11/15/18 07/30/19 History %-0.3 % eye drops in a dropperette sodium phosphates 19 gram-7 118 ml [place] DAILY PRN 11/15/18 07/30/19 History gram/118 mL enema aspirin 81 mg PO DAILY 07/29/19 07/29/19 History benzocaine-menthol [Cepacol Sore 1 flo PO Q4H PRN 07/29/19 07/29/19 History Throat (luiza-men)] bisacodyl [Dulcolax (bisacodyl)] 10 mg CO DAILY PRN 07/29/19 07/29/19 History bismuth subsalicylate 525 mg PO Q6H PRN 07/29/19 07/29/19 History buspirone 15 mg PO TID 07/29/19 07/29/19 History furosemide [Lasix] 40 mg PO QAM 07/29/19 07/29/19 History guaifenesin 100 mg PO QID PRN 07/29/19 07/29/19 History levalbuterol HCl 1.25 mg INHALATION Q4H PRN 07/29/19 07/30/19 History lorazepam [Ativan] 0.5 mg PO BID PRN 07/29/19 07/29/19 History Maalox Plus 30 ml PO Q8H PRN 07/30/19 07/30/19 History Magic Swizzle 20 ml PO QID PRN 07/30/19 07/30/19 History Simply Saline 1 dose pk INHALATION Q6H PRN 07/30/19 07/30/19 History Systane Ultra Solution 1 drp QID PRN 07/30/19 07/30/19 History albuterol sulfate [Ventolin HFA] 2 puff INHALATION Q6H PRN 07/30/19 07/30/19 History loperamide 2 mg PO DIRECTED PRN 07/30/19 07/30/19 History magnesium hydroxide [Milk of 30 ml PO DAILY PRN 07/30/19 07/30/19 History Magnesia] metoprolol tartrate 25 mg PO BID 07/30/19 07/30/19 History omeprazole 20 mg PO BID 07/30/19 07/30/19 History oxycodone 5 mg PO Q6H PRN 07/30/19 07/30/19 History prednisone 10 mg PO DAILY 07/30/19 07/30/19 History ranitidine HCl 150 mg PO BID 07/30/19 07/30/19 History simethicone [Gas Relief 80] 80 mg PO Q6H PRN 07/30/19 07/30/19 History venlafaxine 75 mg PO DAILY 07/30/19 07/30/19 History Patient History Medical History Anemia (Chronic) COPD (chronic obstructive pulmonary disease) (Chronic) Cholelithiasis (Chronic) Constipation (Chronic) Depression with anxiety (Chronic) Dysphagia (Chronic) Elevated hemidiaphragm (Chronic) Esophageal reflux (Chronic) Hyperlipemia (Chronic) Hypertension (Chronic) Hypothyroidism (Chronic) Laryngeal cancer (Chronic) 2008 Osteoarthritis (Chronic) Tachycardia (Chronic) Tracheostomy in place (Chronic) Ventral hernia (Chronic) Vitamin D deficiency (Chronic) History of radiation therapy (Resolved) Larynx: 02/25/09 - 04/09/09 Pleural effusion (Resolved) Surgical History History of bronchoscopy (Resolved) History of section (Resolved) 1979 x 1 History of laryngectomy (Resolved) 2008 History of radical neck dissection (Resolved) 2008 Family History Mother Alzheimer disease Age 91 - Alive and well Father , Passed age 85 of Non-Hodgkin's Lymphoma No problems noted. Family/Other Prostate cancer Sister , Passed age 64 of [place] No problems noted. Sister No problems noted. Sister No problems noted. Sister No problems noted. Brother No problems noted. Son , Passed as child in MVA No problems noted. Son , Passed as child in MVA No problems noted. Son No problems noted. Son No problems noted. Daughter No problems noted. 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 Beliefs That Will Affect Care: None marital status: Current Living Situation: Care Home current occupational status: retired current occupation: Retired Feels Safe at Home: Yes Smoking Status: Unknown if ever smoked caffeine: Yes (0-1 cup / day ) during the past year weight has: remained stable Review of Systems Review of Systems: All systems reviewed & are unremarkable except as noted in HPI & below Physical Exam Physical Exam: Patient is in her hospital bed resting comfortably the nurse said she has been sleeping She is in no distress lying on her side, she is responsive to questioning Heart rate is 76 blood pressure 90s systolic sats on O2 mask 98% She has mild dyspnea She is responsive and says he has no abdominal pain unless you push on her abdomen Her abdomen is distended but not rigid she has no peritoneal signs he does have discomfort To deep palpation she does have tympany Results & Data Vital Signs (Past 12 Hours) Vital Signs Temp Pulse Pulse Resp BP BP Pulse Ox 07/30/19 03:16 79 24 98 07/30/19 03:08 36.9 C 78 24 122/73 94 07/30/19 03:01 79 21 94/59 L 96 07/30/19 03:00 79 26 H 97 07/30/19 02:33 83 20 122/73 95 07/30/19 01:45 84 21 102/83 80 L 07/30/19 01:31 84 36 H 108/58 L 94 07/30/19 01:30 87 34 H 100 07/30/19 01:15 87 19 82/73 L 100 07/30/19 01:01 86 21 110/61 07/30/19 01:00 86 25 H 07/30/19 00:46 93 H 24 118/75 96 07/30/19 00:45 88 26 H 07/30/19 00:36 83 22 96 07/30/19 00:31 84 22 104/76 07/30/19 00:30 84 22 07/30/19 00:17 82 24 07/30/19 00:16 82 26 H 100/53 L 07/30/19 00:15 83 25 H 07/30/19 00:01 100/62 07/29/19 23:46 62 22 88/49 L 95 07/29/19 23:45 87 24 95 07/29/19 23:33 90 24 07/29/19 23:32 90 17 82/60 L 07/29/19 23:30 88 17 07/29/19 23:23 95 H 23 130/82 94 07/29/19 23:15 95 H 25 H 86 L 07/29/19 23:13 94 H 24 96 07/29/19 23:11 94 H 23 174/127 H 98 07/29/19 23:07 37.3 C 95 H 20 174/127 H 97 I reviewed her CAT scan PG Care Time/CCT Total # of Minutes Spent Total Time Spent with Patient: Total time spent is greater than 50% in coordination of care (as documented) at patient's floor/unit and/or counseling patient:
[2019-07-30] MEDS: NORMOSOL-R 1,000 ML IV SCH ×2 (05:22→14:10)
[2019-07-30] MEDS ORDERED: AZTREONAM 2,000 MG in DEXTROSE 5% 100 ML IV SCH (06:00)
--- NOTE | 2019-07-30 06:34 | XRay Report ---
XR chest 1V portable CLINICAL HISTORY: SOB COMPARISON STUDY: 04/30/2018 FINDINGS: A tracheostomy tube is visualized. The heart is normal in size. There is underlying pulmona ry emphysema. There are new left lower lobe airspace opacity suspicious for pneumonia. Films subseque nt to treatment are recommended in follow-up.[ IMPRESSION: Left lower lobe pulmonary airspace opacity suspicious for pneumonia. Electronically signed by: Negro Benavides M.D. 07/30/2019 6:33 AM
--- NOTE | 2019-07-30 06:37 | XRay Report ---
XR KUB/Abdomen 1 view CLINICAL HISTORY: abdominal pain COMPARISON STUDY: 05/03/2018 FINDINGS: There is diffuse gaseous prominence of both large and small bowel loops. The findings favor an ileus. Clinical and radiographic follow-up is recommended. IMPRESSION: Nonspecific bowel gas pattern with diffuse gaseous prominence of both large and small april wel loops. Electronically signed by: Negro Benavides M.D. 07/30/2019 6:36 AM
--- NOTE | 2019-07-30 06:41 | Gastrointestinal Consultation ---
Date of Consultation July 30, 2019 Assessment & Plan (1) Dilatation of colon: In absence of volvulus there is no indication for colonoscopy. Differential includes ischemia, colon psuedoobstruction. Expectant management, antibiotics. Defer any decision on operative intervention to DR Park but does not appear to have acute abdomen. Melena--stool was more dark brown looking to me. Hemoccult ordered. Continue PPI elevated WBC and lactic acid--although ischemic bowel is in the differential, the aspiration pneumonia could explain this anemia--drop but no ongoing stool output, follow and transfuse prn. Overall the patient is high risk for scopes (signicant COPD) or operative intervention so conservative care unless she has life threatening conditions. History of Present Illness Reason for Consultation: possible melena, colon distension Requesting Physician: Dr Romeo Park Attending Physician: Ihsan Sorto MD History of Present Illness CC abd pain HPI History from chart, nurse, Dr Park and patient. History limited from patient with trach and not able to answer detailed questions. Pt resident of [facility]. Reportedly had 2 large black stools prior to coming to ER. 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 Her meds list ASA and Ranitidine and Omeprazole and Prednisone. Then enroute to ER was unresponsive and required intubation (tube subsequently removed). She complains of abd pain for unknown duration and cannot pinpoint for me area of pain. Previous GI history unclear although GERD listed in her chart. Her LFTS showed mildly elevated alk phos 125, nl lipase. WBC elevated at 30 with last 23. Initial HGB 12 with last 9.6. Lactic acid elevted to 6.3 last 3.8. No BMS since arrival to hospital. KUB showed dilated colon (no report yet) and CT a/p prelim report dilated redudant colon no volvulus, aspiration pneumonia, Stomach distension. It is unclear how often she moves her bowels. Allergies Allergy/AdvReac Type Severity Reaction Status Date / Time alendronate sodium Allergy U UNK Verified 07/29/19 23:48 penicillin V Allergy U UNK Verified 07/29/19 23:48 Sulfa (Sulfonamide Allergy U UNKNOWN Verified 07/29/19 23:48 Antibiotics) sulfadiazine Allergy U Unknown Verified 07/29/19 23:48 morphine AdvReac HI itching Verified 07/29/19 23:48 Home Medications Home Medications Medication Instructions Recorded Confirmed Type NSS Nebulizer 1 dose NEB Q6H PRN #0 03/31/18 07/30/19 History peg 400-propylene glycol (PF) 0.4 1 drops OP QID PRN 11/15/18 07/30/19 History %-0.3 % eye drops in a dropperette sodium phosphates 19 gram-7 118 ml TX DAILY PRN 11/15/18 07/30/19 History gram/118 mL enema aspirin 81 mg PO DAILY 07/29/19 07/29/19 History benzocaine-menthol [Cepacol Sore 1 flo PO Q4H PRN 07/29/19 07/29/19 History Throat (luiza-men)] bisacodyl [Dulcolax (bisacodyl)] 10 mg TX DAILY PRN 07/29/19 07/29/19 History bismuth subsalicylate 525 mg PO Q6H PRN 07/29/19 07/29/19 History buspirone 15 mg PO TID 07/29/19 07/29/19 History furosemide [Lasix] 40 mg PO QAM 07/29/19 07/29/19 History guaifenesin 100 mg PO QID PRN 07/29/19 07/29/19 History levalbuterol HCl 1.25 mg INHALATION Q4H PRN 07/29/19 07/30/19 History lorazepam [Ativan] 0.5 mg PO BID PRN 07/29/19 07/29/19 History Maalox Plus 30 ml PO Q8H PRN 07/30/19 07/30/19 History Magic Swizzle 20 ml PO QID PRN 07/30/19 07/30/19 History Simply Saline 1 dose pk INHALATION Q6H PRN 07/30/19 07/30/19 History Systane Ultra Solution 1 drp QID PRN 07/30/19 07/30/19 History albuterol sulfate [Ventolin HFA] 2 puff INHALATION Q6H PRN 07/30/19 07/30/19 History loperamide 2 mg PO DIRECTED PRN 07/30/19 07/30/19 History magnesium hydroxide [Milk of 30 ml PO DAILY PRN 07/30/19 07/30/19 History Magnesia] metoprolol tartrate 25 mg PO BID 07/30/19 07/30/19 History omeprazole 20 mg PO BID 07/30/19 07/30/19 History oxycodone 5 mg PO Q6H PRN 07/30/19 07/30/19 History prednisone 10 mg PO DAILY 07/30/19 07/30/19 History ranitidine HCl 150 mg PO BID 07/30/19 07/30/19 History simethicone [Gas Relief 80] 80 mg PO Q6H PRN 07/30/19 07/30/19 History venlafaxine 75 mg PO DAILY 07/30/19 07/30/19 History Patient History Medical History Anemia (Chronic) COPD (chronic obstructive pulmonary disease) (Chronic) Cholelithiasis (Chronic) Constipation (Chronic) Depression with anxiety (Chronic) Dysphagia (Chronic) Elevated hemidiaphragm (Chronic) Esophageal reflux (Chronic) Hyperlipemia (Chronic) Hypertension (Chronic) Hypothyroidism (Chronic) Laryngeal cancer (Chronic) 2008 Osteoarthritis (Chronic) Tachycardia (Chronic) Tracheostomy in place (Chronic) Ventral hernia (Chronic) Vitamin D deficiency (Chronic) History of radiation therapy (Resolved) Larynx: 02/25/09 - 04/09/09 Pleural effusion (Resolved) Surgical History History of bronchoscopy (Resolved) History of section (Resolved) 1978 x 1 History of laryngectomy (Resolved) 2008 History of radical neck dissection (Resolved) 2008 Family History Mother Alzheimer disease Age 91 - Alive and well Father , Passed age 85 of Non-Hodgkin's Lymphoma No problems noted. Family/Other Prostate cancer Sister , Passed age 64 of [place] No problems noted. Sister No problems noted. Sister No problems noted. Sister No problems noted. Brother No problems noted. Son , Passed as child in MVA No problems noted. Son , Passed as child in MVA No problems noted. Son No problems noted. Son No problems noted. Daughter No problems noted. Social History Preferred Language: Bel[place]ian Communication Ability: Impaired Visual Impairment: Limited Hearing Ability: Normal Channel Turner Required: No Beliefs That Will Affect Care: None marital status: Current Living Situation: Long Term current occupational status: retired current occupation: Retired Feels Safe at Home: Yes Smoking Status: Unknown if ever smoked caffeine: Yes (0-1 cup / day ) during the past year weight has: remained stable Review of Systems Review of Systems: Unobtainable due to cognitive status Physical Exam Constitutional: WD/WN, vitals as above Eyes: PERRL, conjunctivae normal, anicteric sclerae ENMT: trach noted, Neck: trachea midline Respiratory: + labored breathing decreased breath sounds Cardiovascular: RRR, no murmur, no edema Gastrointestinal (Abdomen): pos bs, moderately distended and tympantiic, no guarding nor rebound, physical with nurse present rectal no obvious mass, no impaction, stool dark brown sent for hemoccult Neurologic: PERRL, EOMI, accommodation nl, no face palsy, no dysarthria Psychiatric: Orientation: alert Insight: + poor insight Results & Data Vital Signs (Past 12 Hours) Vital Signs Temp Pulse Pulse Resp BP BP Pulse Ox 07/30/19 06:00 74 21 98/54 L 100 07/30/19 05:00 78 21 94/59 L 99 07/30/19 04:16 75 21 95/77 L 99 07/30/19 03:16 79 24 98 07/30/19 03:08 36.9 C 78 24 122/73 94 07/30/19 03:01 79 21 94/59 L 96 07/30/19 03:00 79 26 H 97 07/30/19 02:33 83 20 122/73 95 07/30/19 01:45 84 21 102/83 80 L 07/30/19 01:31 84 36 H 108/58 L 94 07/30/19 01:30 87 34 H 100 07/30/19 01:15 87 19 82/73 L 100 07/30/19 01:01 86 21 110/61 07/30/19 01:00 86 25 H 07/30/19 00:46 93 H 24 118/75 96 07/30/19 00:45 88 26 H 07/30/19 00:36 83 22 96 07/30/19 00:31 84 22 104/76 07/30/19 00:30 84 22 09/18/19 00:17 82 24 07/30/19 00:16 82 26 H 100/53 L 07/30/19 00:15 83 25 H 07/30/19 00:01 100/62 07/29/19 23:46 62 22 88/49 L 95 07/29/19 23:45 87 24 95 07/29/19 23:33 90 24 07/29/19 23:32 90 17 82/60 L 07/29/19 23:30 88 17 07/29/19 23:23 95 H 23 130/82 94 07/29/19 23:15 95 H 25 H 86 L 07/29/19 23:13 94 H 24 96 07/29/19 23:11 94 H 23 174/127 H 98 07/29/19 23:07 37.3 C 95 H 20 174/127 H 97
--- NOTE | 2019-07-30 07:26 | CT Scan Report ---
ABDOMEN AND PELVIS CT WITHOUT CONTRAST CT DOSE: 322.97 mGy.cm HISTORY: abdominal tenderness and distension, lactic acidos TECHNIQUE: Multiaxial CT images of the abdomen and pelvis were performed without contrast. A dose lo wering technique was utilized adhering to the principles of ALARA. COMPARISON STUDY: PET/CT 10/16/2018. Abdomen and pelvis CT 07/03/2014. FINDINGS: Patchy areas of consolidation within the lingula and bilateral lower lobes most pronounced on the left. This may represent a pneumonia. There is complete collapse of the right middle lobe. Thi s likely accounts for the mild right mediastinal shift. There appears to be stenosis with near occlus ion at the proximal right middle lobe bronchus which is only partially imaged on this study. No pneum operitoneum. No pneumatosis. No fractures within the visualized osseous structures. Stable 2.6 cm hyp odense lesion within the right hepatic lobe. No new hepatic lesions. The unenhanced spleen remains mi ldly enlarged. Multiple subcentimeter hypodense splenic lesions are suboptimally assessed on this non contrast study. Cholecystectomy. The pancreas and adrenal glands are unremarkable. No renal stones or hydronephrosis. No retroperitoneal lymphadenopathy. Mildly distended gas-filled stomach. Bladder is decompressed by Freedman catheter. Gas within the bladder is likely due to the catheterization. No signi ficant pelvic free fluid. The uterus and adnexa are unremarkable. Suboptimal evaluation for bowel pat hology due to the lack of intravenous and oral contrast. However, there is no definite bowel wall thi ckening or obstruction. Normal appendix. Multiple distended and gas-filled transverse colon and desce nding colon. IMPRESSION: 1. Bibasilar airspace opacities most pronounced on the left which likely represents a pneumonia. Ther e is also complete collapse of the right middle lobe which likely accounts for the mild right mediast inal shift. There appears to be stenosis with near occlusion of the proximal right middle lobe bronch us which is only partially imaged on this study. This is new from the recent chest CT on 07/21/2019 and may be due to mucous plugging. Bronchoscopy recommended for further evaluation. 2. No definite bowel wall thickening or obstruction. 3. Normal appendix. 4. Mildly distended and gas-filled stomach and mid to distal colon. No transition point to suggest an obstruction. 5. These findings were called/faxed to the patient's physician following dictation. Electronically signed by: Brennan Naik M.D. 07/30/2019 7:24 AM
[2019-07-30] MEDS ORDERED: VANCOMYCIN HCL 1,250 MG in SODIUM CHLORIDE 0.9% 250 ML IV ONE (08:00)
[2019-07-30] MEDS: methylPREDNISolone 40 MG in SYRINGE 0 ML IV SCH (08:27)
[2019-07-30] MEDS ORDERED: FUROSEMIDE 40 MG TAB PO SCH (09:00)
[2019-07-30] MEDS ORDERED: ASPIRIN CHEW 324 MG PO SCH (09:00)
[2019-07-30] MEDS ORDERED: NON-FORMULARY MEDICATION (Omeprazole 20 MG) PO SCH (09:00)
[2019-07-30 09:20] LABS: INR 1.2 (0.9-1.1); Partial Thromboplastin Ratio 1.1; Partial Thromboplastin Time 30.9 Seconds (21.0-31.0); Prothrombin Time 11.7 Seconds (9.0-12.0)
[2019-07-30] MEDS: ACETAMINOPHEN 65 ML IV PRN ×2 (10:38→23:03)
[2019-07-30] MEDS: BusPIRone 15 MG TAB PO SCH ×2 (10:58→19:46)
[2019-07-30] MEDS: ASPIRIN 81 MG CHEW PO SCH (10:58)
[2019-07-30] MEDS: VENLAFAXINE HCL XR 37.5 MG CAPXR PO SCH (10:59)
[2019-07-30] MEDS: PANTOprazole 40 MG TAB PO SCH (10:59)
[2019-07-30] MEDS: METOPROLOL TARTRATE 25 MG TAB PO SCH ×2 (10:59→19:46)
[2019-07-30] MEDS ORDERED: CALCIUM GLUCONATE 10% 10 ML VIAL IV STA (11:15)
[2019-07-30] MEDS ORDERED: CALCIUM GLUCONATE 10% 1,000 MG in SODIUM CHLORIDE 0.9% 50 ML IV STA (11:19)
[2019-07-30] MEDS: HEPARIN SOD 5,000 UNIT/0.5 ML VIAL SQ SCH (11:25)
[2019-07-30] MEDS ORDERED: PANTOprazole 40 MG in SYRINGE 0 ML IV ONE (11:30)
[2019-07-30] MEDS ORDERED: LINEZOLID 600 MG/300 ML BAG IV SCH (12:00)
[2019-07-30 12:29] LABS: Hematocrit (blood only) 31.6 % (37-47); Hemoglobin 9.1 g/dL (12.0-16.0); Mean Corpuscular Hemoglobin 21.4 pg (25-34); Mean Corpuscular Hgb Conc 28.8 g/dL (32-36); Mean Corpuscular Volume 74.2 fL (80-100); Mean Platelet Volume 9.1 fL (7.4-10.4); Platelet Count 201 K/uL (130-400); RDW Coefficient of Variation 16.4 % (11.5-14.5); RDW Standard Deviation 44.6 fL (36.4-46.3); Red Blood Count 4.26 M/uL (4.2-5.4); White Blood Count 15.95 K/uL (4.8-10.8)
--- NOTE | 2019-07-30 12:57 | Consultation Report ---
DATE OF CONSULTATION: 07/30/2019 I have been asked by Dr. Myron Veloz to evaluate this patient with "airway anatomy." Of note, I did not receive a call from the referring physician about this consult. It is unclear as to why I am being consulted for "airway anatomy". I will try my best to answer the question. 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 Aristeo Chandra on 12/08/2008. The patient received postoperative radiotherapy given the T4 lesion and this was completed on 04/09/2009. The patient was recently admitted to [facility] today from the Emergency Room after she presented with respiratory distress. Apparently, she was unconscious at [facility] and EMS suspected a significant gastrointestinal bleed after she had 2 bouts of large black tarry stool. The patient was responsive upon arrival to the Emergency Room. She has a history of MRSA infected stoma and tends to produce thick chunky yellow, brown discharge according to the medical records. Apparently, the patient had a 6.0 endotracheal tube placed through her stoma and then this was subsequently changed by the critical care team with a cuffed tracheostomy tube where the cuff has been inflated and she is currently on trach collar at 70% humidified oxygen. The patient has dilation of her colon and abdominal tenderness and general surgery as well as gastroenterology have been consulted. Once again, I am not sure why I am being consulted for "airway anatomy," but I am happy to assess her airway and help in any way I can. ALLERGIES: ALENDRONATE, PENICILLIN, SULFA, AND MORPHINE. CURRENT MEDICATIONS: Tylenol p.r.n., DuoNebs p.r.n., baby aspirin, cefepime, metronidazole, Lasix, Ativan p.r.n., magnesium hydroxide p.r.n., methylprednisolone, metoprolol, oxycodone p.r.n., pantoprazole, and vancomycin. PAST MEDICAL HISTORY: As above 1. Anemia. 2. COPD. 3. Depression. 4. Anxiety. 5. Reflux. 6. Dyslipidemia. 7. Hypertension. 8. Hypothyroidism. 9. Osteoarthritis. 10. Vitamin D deficiency. PAST SURGICAL HISTORY: As above. Status post . FAMILY HISTORY: Noncontributory. No bleeding disorders or malignant hyperthermia. SOCIAL HISTORY: The patient lives in a senior care at [facility]. She is a former smoker. There is no alcohol or illicit drug use. REVIEW OF SYSTEMS: The patient currently denies any shortness of breath or chest pain. She is having some abdominal discomfort. She did have the above-mentioned black tarry stool. All systems reviewed and all unremarkable except as noted in the HPI above. PHYSICAL EXAMINATION: In general, this is an elderly white female in no acute distress who has a Shiley trach tube in place with the cuff inflated. This was pulled back and you could see that her laryngeal stoma is somewhat small and there is only a minimal amount of secretions present. Flexible tracheobronchoscopy was performed through the patient's trach and this was carried down to the right and left main stem bronchi. There are no masses or lesions. There is no evidence of secretions. There is no evidence of inflammation. I am able to see the proximal end of the left main bronchi and there are no masses, lesions, or mucous plugging. The patient's neck shows that she is status post radiation with fibrosis, but no lymphadenopathy. She has bilateral neck dissection incisions that are well healed. Nasal examination reveals a relatively midline septum with no mucosal lesions or masses. Oral cavity and oropharyngeal examination reveals that she has an upper denture. There are no mucosal lesions or masses. The patient is awake and alert. It is difficult to determine if she is oriented. Cranial nerves II, III, IV, V, , VII, VIII, IX, XI and XII were all intact. XI cannot be assessed since the patient is status post laryngectomy. 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 Aristeo Chandra who was admitted for respiratory distress. I have been asked to evaluate her airway anatomy. She does have a small tracheal stoma, but it is patent. There is a trach tube in place which I would recommend keeping in place for now. I have been asked by the nursing personnel if there is any risk for aspiration. I tried to educate them on the anatomy of a total laryngectomy patient where there is no risk for aspiration as there is no connection between her pharynx and trachea. Her chest x-ray from yesterday showed a left lower lobe pulmonary airspace opacity suspicious for pneumonia and I believe that this may be the reason for her respiratory distress. She has severe COPD as well and it appears that she has had a prior right lower lobe wedge resection. Her airway is widely patent and there is absolutely no risk for aspiration unless contents were actually inhaled through her tracheal stoma. I will sign off on this consultation, but if she needs any further assistance, please do not hesitate to contact me or contact her surgeon who did her procedure who is Dr. Aristeo Chandra.
[2019-07-30 13:15] LABS: Basophils # (auto) 0.01 K/uL (0-0.2); Basophils % (auto) 0.1 %; Eosinophils # (auto) 0.01 K/uL (0-0.5); Eosinophils % (auto) 0.1 %; Immature Granulocytes # (auto) 0.02 K/uL (0.00-0.02); Immature Granulocytes % (auto) 0.1 %; Lymphocytes # (auto) 0.49 K/uL (1.2-3.4); Lymphocytes % (auto) 3.1 %; Monocytes # (auto) 0.24 K/uL (0.11-0.59); Monocytes % (auto) 1.5 %; Neutrophils # (auto) 15.18 K/uL (1.4-6.5); Neutrophils % (auto) 95.1 %; RBC Morphology Unremarkable
[2019-07-30] MEDS ORDERED: AZTREONAM 1,000 MG in DEXTROSE 5% 100 ML IV SCH (14:00)
--- NOTE | 2019-07-30 14:04 | Pharmacy Report ---
Pharmacy Abx Dose Short Note - Date of Service July 30, 2019 - Assessment & Plan Assessment * 69 year old F receiving VANCOMYCIN + CEFEPIME + METRONIDAZOLE IV for treatment of intra-abdominal and possible pulm infxn * Day # 1 of antimicrobial therapy * Pharmacy is consulted to dose vanco + cefepime * eCrCl 30's, SCr drending down 1.6 --> 1.27 (baseline ~1.0), UOP > 0.5mL/kg/hr * Lactate trending down 6.3 -->3.8 -->2.4 * Procal elevated 12.93 * + MRSA of nares * BLCXs and sputum cx's pending * CXR read as LLL opacity; CT read as bibasilar opacities worse on L and collapse of RML with RML bronchus stenosis ? mucus plugging * CT abd/pelv read as no bowel wall thickening or obstruction * MAPs currently > 65, O2 sats 90's Plan Vancomycin * Load: 1250mg (~25mg/kg) IV x 1 * Maint dose: 750mg IV Q 20 hrs * Goal trough level for pulm infxn : 15 to 20 mcg/mL * Trough level ordered for: 08/01/19 w/ maint dose Cefepime * 2gm IV Q 12 hrs rec as max dose for eCrCr 30-60cc/min Pharmacy will continue to follow and will adjust dose/frequency as necessary. Thank you.
[2019-07-30] MEDS: CEFEPIME 2,000 MG in SYRINGE 7.5 ML IV SCH (15:31)
[2019-07-30 17:13] LABS: Hematocrit (blood only) 33.2 % (37-47); Hemoglobin 9.6 g/dL (12.0-16.0)
[2019-07-30] MEDS: PANTOprazole 40 MG in SYRINGE 0 ML IV SCH (19:48)
[2019-07-30 22:43] LABS: Hematocrit (blood only) 30.2 % (37-47)
[2019-07-30] MEDS: LORazepam 0.5 MG/1 ML VIAL IV PRN (23:03)
[2019-07-30] MEDS: PROMETHAZINE HCL 6.25 MG in SODIUM CHLORIDE 0.9% 50 ML IV PRN (23:11)
[2019-07-31] MEDS: VANCOMYCIN HCL 750 MG in SODIUM CHLORIDE 0.9% 250 ML IV SCH (03:24)
[2019-07-31] MEDS: NORMOSOL-R 1,000 ML IV SCH ×2 (03:24→15:52)
[2019-07-31] MEDS: metroNIDAZOLE 500 MG/100 ML BAG IV SCH ×3 (03:24→20:15)
[2019-07-31] MEDS: ALBUT/IPRATROP 3MG/0.5MG NEB 3 ML VIAL NEB SCH ×6 (03:53→23:22)
[2019-07-31] MEDS: CEFEPIME 2,000 MG in SYRINGE 7.5 ML IV SCH ×2 (04:16→16:02)
[2019-07-31 04:48] LABS: Hematocrit (blood only) 29.5 % (37-47); Hemoglobin 8.7 g/dL (12.0-16.0); Immature Granulocytes # (auto) 0.03 K/uL (0.00-0.02); Immature Granulocytes % (auto) 0.3 %; Lymphocytes # (auto) 0.93 K/uL (1.2-3.4); Lymphocytes % (auto) 8.8 %; Mean Corpuscular Hemoglobin 21.5 pg (25-34); Mean Corpuscular Hgb Conc 29.5 g/dL (32-36); Mean Corpuscular Volume 72.8 fL (80-100); Mean Platelet Volume 9.3 fL (7.4-10.4); Monocytes # (auto) 0.33 K/uL (0.11-0.59); Monocytes % (auto) 3.1 %; Neutrophils # (auto) 9.28 K/uL (1.4-6.5); Neutrophils % (auto) 87.8 %; Platelet Count 219 K/uL (130-400); RDW Coefficient of Variation 16.4 % (11.5-14.5); RDW Standard Deviation 43.9 fL (36.4-46.3); Red Blood Count 4.05 M/uL (4.2-5.4); White Blood Count 10.57 K/uL (4.8-10.8)
[2019-07-31 05:06] LABS: Albumin Globulin Ratio 0.9 (0.9-2); Albumin Level 2.8 gm/dl (3.4-5.0); BUN Creatinine Ratio 9.7 (10-20); Bilirubin,Total 0.4 mg/dl (0.2-1); Calcium 8.3 mg/dl (8.5-10.1); Creatinine Clr Calc Pharmacy 29.5 ml/min; Est GFR (African American) 42.8; Est GFR (Non-African American) 36.9; Globulin 3.1 gm/dl (2.5-4.0); Potassium 3.8 mmol/L (3.5-5.1); Total Protein 5.9 gm/dl (6.4-8.2)
[2019-07-31 05:28] LABS: Hypochromasia Present; Microcytosis Present
[2019-07-31] MEDS ORDERED: SENNA 8.8 MG/5 ML UDP PO PRN (07:33)
--- NOTE | 2019-07-31 08:16 | Surgery Progress Note ---
Date of Service July 31, 2019 Assessment & Plan (1) Dilatation of colon: Patient's vital signs are stable She did have bowel movements Her H&H has dropped with hydration, her white blood cell count is normal She has not had melena, she does not appear to be acidotic Her abdomen is soft with active bowel sounds We will order clear liquids and advance to full liquid as tolerated Results & Data Vital Signs (Past 12 Hours) Vital Signs Temp Pulse Pulse Pulse Resp BP Pulse Ox 07/31/19 07:16 88 07/31/19 07:12 79 17 100 07/31/19 07:09 36.3 C L 86 20 125/81 100 07/31/19 04:50 83 07/31/19 03:53 84 16 97 07/31/19 02:55 36.5 C 68 20 121/69 99 07/30/19 23:39 36.4 C L 83 20 105/64 92 07/30/19 23:21 80 22 94 07/30/19 22:20 81 PG Care Time/CCT Total # of Minutes Spent Total Time Spent with Patient: Total time spent is greater than 50% in coordination of care (as documented) at patient's floor/unit and/or counseling patient:
[2019-07-31] MEDS: METOPROLOL TARTRATE 25 MG TAB PO SCH ×2 (09:34→20:16)
[2019-07-31] MEDS: VENLAFAXINE HCL XR 37.5 MG CAPXR PO SCH (09:34)
[2019-07-31] MEDS: BusPIRone 15 MG TAB PO SCH ×3 (09:34→20:16)
[2019-07-31] MEDS: ASPIRIN 81 MG CHEW PO SCH (09:34)
[2019-07-31] MEDS: PANTOprazole 40 MG in SYRINGE 0 ML IV SCH (09:35)
[2019-07-31] MEDS: methylPREDNISolone 40 MG in SYRINGE 0 ML IV SCH (09:35)
[2019-07-31 10:42] LABS: Hematocrit (blood only) 28.7 % (37-47); Hemoglobin 8.5 g/dL (12.0-16.0)
--- NOTE | 2019-07-31 15:29 | Palliative Care Consultation ---
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 Patient was sent to the emergency room from [facility] after having 2 large tarry stools-concern for GI bleed. During transport patient had acute respiratory failure required intubation via her trach. Patient was evaluated-she had effective cough which nearly displaced her trach-trach was removed. Patient is now on O2 via trach collar over her stoma. Patient is on IV methylprednisolone, IV Flagyl, cefepime and vancomycin for pneumonia-appears to be improving. Scans of patient's abdomen showed dilated colon-is being treated for colitis. Patient's white blood count is trending downward, hemoglobin did drop from 9.6-8.5. Patient is awake, did nod yes and no to simple questions, would not open her eyes during visit due to fatigue. Patient did give me permission to call her sister, Mei [phone]-[phone]. Did call and leave a voice message for her to call me back on my cell phone. Have not yet heard back from patient's sister. Patient currently unable to participate in goals of care discussion-her baseline mental status is not known. PPS 40% -CODE STATUS-patient will need to remain a full code until further discussion can be made with patient and family -Respiratory failure-due to left lower lobe pneumonia-improving on IV antibiotics -End-stage COPD-continue O2 via trach collar over stoma site -Laryngeal cancer-status post total laryngectomy and neck dissection in November 2008-trach now removed-O2 via trach collar over stoma -Dilated colon - Suspect colitis-continue IV antibiotics and hydration Will continue to try to contact patient's sister, will revisit when patient more awake and alert and determine her ability to make medical decisions. (2) Respiratory failure: Chronicity: acute Respiratory failure complication: hypoxia and hypercapnia Qualified Code(s): J96.01 - Acute respiratory failure with hypoxia; J96.02 - Acute respiratory failure with hypercapnia (3) COPD (chronic obstructive pulmonary disease): (4) Laryngeal cancer: (5) Left lower lobe pneumonia: Pneumonia type: due to unspecified organism Qualified Code(s): J18.1 - Lobar pneumonia, unspecified organism (6) Dilatation of colon: History of Present Illness Reason for Consultation: Address CODE STATUS and goals of care Requesting Physician: JAHAIRA Lomax Attending Physician: Ward Mckeon DO History of Present Illness Patient is a 69-year-old female, resident of [facility] with a significant past medical history of 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 Patient was sent to the emergency room from [facility] after having 2 large tarry stools-concern for GI bleed. During transport patient had acute respiratory failure required intubation via her trach. Patient was evaluated-she had effective cough which nearly displaced her trach-trach was removed. Patient is now on O2 via trach collar over her stoma. Patient is on IV methylprednisolone, IV Flagyl, cefepime and vancomycin for pneumonia-appears to be improving. Scans of patient's abdomen showed dilated colon-is being treated for colitis. Patient's white blood count is trending downward, hemoglobin did drop from 9.6-8.5. Patient is awake, did nod yes and no to simple questions, would not open her eyes during visit due to fatigue. Patient did give me permission to call her sister, Mei PachecoEokktn-[phone]. Did call and leave a voice message for her to call me back on my cell phone. Have not yet heard back from patient's sis ter. Patient currently unable to participate in goals of care discussion-her baseline mental status is not known. PPS 40% Allergies Allergy/AdvReac Type Severity Reaction Status Date / Time alendronate sodium Allergy U UNK Verified 07/29/19 23:48 penicillin V Allergy U UNK Verified 07/29/19 23:48 Sulfa (Sulfonamide Allergy U UNKNOWN Verified 07/29/19 23:48 Antibiotics) sulfadiazine Allergy U Unknown Verified 07/29/19 23:48 morphine AdvReac AL itching Verified 07/29/19 23:48 Home Medications Home Medications Medication Instructions Recorded Confirmed Type NSS Nebulizer 1 dose NEB Q6H PRN #0 03/31/18 07/30/19 History peg 400-propylene glycol (PF) 0.4 1 drops OP QID PRN 11/15/18 07/30/19 History %-0.3 % eye drops in a dropperette sodium phosphates 19 gram-7 118 ml OR DAILY PRN 11/15/18 07/30/19 History gram/118 mL enema aspirin 81 mg PO DAILY 07/29/19 07/29/19 History benzocaine-menthol [Cepacol Sore 1 flo PO Q4H PRN 07/29/19 07/29/19 History Throat (luiza-men)] bisacodyl [Dulcolax (bisacodyl)] 10 mg OR DAILY PRN 07/29/19 07/29/19 History bismuth subsalicylate 525 mg PO Q6H PRN 07/29/19 07/29/19 History buspirone 15 mg PO TID 07/29/19 07/29/19 History furosemide [Lasix] 40 mg PO QAM 07/29/19 07/29/19 History guaifenesin 100 mg PO QID PRN 07/29/19 07/29/19 History levalbuterol HCl 1.25 mg INHALATION Q4H PRN 07/29/19 07/30/19 History lorazepam [Ativan] 0.5 mg PO BID PRN 07/29/19 07/29/19 History Maalox Plus 30 ml PO Q8H PRN 07/30/19 07/30/19 History Magic Swizzle 20 ml PO QID PRN 07/30/19 07/30/19 History Simply Saline 1 dose pk INHALATION Q6H PRN 07/30/19 07/30/19 History Systane Ultra Solution 1 drp QID PRN 07/30/19 07/30/19 History albuterol sulfate [Ventolin HFA] 2 puff INHALATION Q6H PRN 07/30/19 07/30/19 History loperamide 2 mg PO DIRECTED PRN 07/30/19 07/30/19 History magnesium hydroxide [Milk of 30 ml PO DAILY PRN 07/30/19 07/30/19 History Magnesia] metoprolol tartrate 25 mg PO BID 07/30/19 07/30/19 History omeprazole 20 mg PO BID 07/30/19 07/30/19 History oxycodone 5 mg PO Q6H PRN 07/30/19 07/30/19 History prednisone 10 mg PO DAILY 07/30/19 07/30/19 History ranitidine HCl 150 mg PO BID 07/30/19 07/30/19 History simethicone [Gas Relief 80] 80 mg PO Q6H PRN 07/30/19 07/30/19 History venlafaxine 75 mg PO DAILY 07/30/19 07/30/19 History Patient History Medical History Anemia (Chronic) COPD (chronic obstructive pulmonary disease) (Chronic) Cholelithiasis (Chronic) Constipation (Chronic) Depression with anxiety (Chronic) Dysphagia (Chronic) Elevated hemidiaphragm (Chronic) Esophageal reflux (Chronic) Hyperlipemia (Chronic) Hypertension (Chronic) Hypothyroidism (Chronic) Laryngeal cancer (Chronic) 2008 Osteoarthritis (Chronic) Tachycardia (Chronic) Tracheostomy in place (Chronic) Ventral hernia (Chronic) Vitamin D deficiency (Chronic) History of radiation therapy (Resolved) Larynx: 02/25/09 - 04/09/09 Pleural effusion (Resolved) Surgical History History of bronchoscopy (Resolved) History of section (Resolved) 1978 x 1 History of laryngectomy (Resolved) 2008 History of radical neck dissection (Resolved) 2008 Family History Mother Alzheimer disease Age 91 - Alive and well Father , Passed age 85 of Non-Hodgkin's Lymphoma No problems noted. Family/Other Prostate cancer Sister , Passed age 64 of AL No problems noted. Sister No problems noted. Sister No problems noted. Sister No problems noted. Brother No problems noted. Son , Passed as child in MVA No problems noted. Son , Passed as child in MVA No problems noted. Son No problems noted. Son No problems noted. Daughter No problems noted. Social History Preferred Language: Telugu Communication Ability: Impaired Visual Impairment: Limited Hearing Ability: Normal Procurement Intern Required: No Beliefs That Will Affect Care: None marital status: Current Living Situation: [facility] current occupational status: retired current occupation: Retired Feels Safe at Home: Yes Smoking Status: Unknown if ever smoked caffeine: Yes (0-1 cup / day ) during the past year weight has: remained stable Review of Systems Review of Systems: Unobtainable due to reduced consciousness Physical Exam Physical Exam: PE: Patient indicated she is comfortable on O2 via trach collar, increased work of breathing HEENT: Hearing within normal limits Respirations: Increased work of breathing, diminished breath sounds left lower lobe, no rhonchi CV: Regular rate, no edema Abdomen: Soft, positive bowel sounds Neuro: Awake, able to answer simple questions by nodding yes or no Results & Data Vital Signs (Past 12 Hours) Vital Signs Temp Pulse Pulse Pulse Resp BP Pulse Ox 07/31/19 15:19 73 17 95 07/31/19 11:48 98.4 F 83 23 153/79 H 94 07/31/19 11:44 87 18 07/31/19 11:06 77 20 98 07/31/19 07:58 97.5 F L 86 18 132/70 90 07/31/19 07:16 88 07/31/19 07:12 79 17 100 07/31/19 07:09 97.3 F L 86 20 125/81 100 07/31/19 04:50 83 07/31/19 03:53 84 16 97 PG Care Time/CCT Total # of Minutes Spent Total Time Spent with Patient: Total time spent is greater than 50% in coordination of care (as documented) at patient's floor/unit and/or counseling patient:
--- NOTE | 2019-07-31 15:31 | Progress Note ---
DATE: 07/31/2019 SUBJECTIVE: Patient was seen for suspected GI bleed and possible ischemic bowel. The patient is resting in bed. Today, she has been extubated and is receiving oxygen via trach mask. She is on Flagyl and vancomycin for presumed left lower lobe pneumonia. Her vital signs show blood pressure 153/79, pulse 83, temperature is 36.9, O2 saturations 94% on the trach collar with an FIO2 of 40%. Her nasal screen is positive for MRSA. Stool is Hemoccult negative. C. diff is negative. Abdominal CT and belly films showed no significant abdominal distention and her bowels are moving. On exam, her abdomen slightly tender. No masses appreciated. White count is normal. Hemoglobin is 8.5, which is probably due to IV fluids equilibration. IMPRESSION: The patient does not appear to have a GI bleed at all, and appears to have left lower lobe pneumonia and possible mucous plugging of her right middle lobe. At this point, no further GI intervention is needed and I will sign off the case unless further GI input is needed in the future.
[2019-07-31 16:32] LABS: Hematocrit (blood only) 30.6 % (37-47); Hemoglobin 9.2 g/dL (12.0-16.0)
[2019-07-31] MEDS: ACETAMINOPHEN 65 ML IV PRN (18:55)
[2019-07-31] MEDS: PROMETHAZINE HCL 6.25 MG in SODIUM CHLORIDE 0.9% 50 ML IV PRN (19:55)
[2019-07-31] MEDS ORDERED: MoRPHine SULFATE 2 MG/ML CARP IV STA (20:14)
[2019-07-31] MEDS: PANTOprazole 40 MG TAB PO SCH (20:16)
[2019-07-31] MEDS: LORazepam 0.5 MG/1 ML VIAL IV PRN (21:12)
--- NOTE | 2019-07-31 22:34 | Hospitalist Progress Note ---
Date of Service July 31, 2019 Assessment & Plan (1) Respiratory failure: Acute and chronic respiratory failure acute due to pneumonia improved today, tracheostomy removed, breathing well via stoma trach collar with 40% FiO2 blow by, no respiratory distress (2) Left lower lobe pneumonia: likely due to aspiration pneumonia continue Cefepime, Vanco, Flagyl WBC down to 10k no growth on blood or sputum cultures (3) IZABEL (acute kidney injury): present on arrival treated with IV fluids, likely prerenal and related to pneumonia improved to 1.4 today (4) COPD (chronic obstructive pulmonary disease): no wheezing on exam, no signs of distress (5) Laryngeal cancer: (6) Tracheostomy present: now breathing comfortably via stoma, trach removed (7) Anxiety: (8) GERD (gastroesophageal reflux disease): (9) Dilatation of colon: less pain today, likely just some colitis continue Cefepime and Flagyl WBC normal, lactate normal surgery following Palliative care following, working on speaking with family about code status, goals of care Subjective patient was coughing a lot this morning, trach was coming out of her stoma had pulmonary evaluate, they recommended removing trach, allowing patient to breath via stoma she was much more comfortable in the afternoon after making that change reviewed the chart since admission discussed with ICU staff and Dr. Park today reviewed labs, WBC down to 10k from 30k on admission, CR is 1.45, electrolytes stable no growth on blood or sputum cultures Review of Systems Review of Systems: Unobtainable due to endotracheal tube (no full review, cannot speak, denies pain, breathing improved) Physical Exam Constitutional: + thin, + cachectic and + frail appearing; no acute distress Eyes: PERRL, conjunctivae normal, anicteric sclerae ENMT: external ear and nose normal, oropharynx normal Neck: trachea midline; + abnormal visual inspection (open stoma connected to trachea) Respiratory: normal respiratory effort, lungs clear to auscultation Auscultation: + crackles (left lower lobe) Cardiovascular: Rate/Rhythm: regular rate and + tachycardic Heart Sounds: normal S1 and normal S2; no murmur Vessels: no JVD Extremities: normal capillary refill; no edema Gastrointestinal (Abdomen): normal bowel sounds, soft, nontender, no hepatosplenomegaly Musculoskeletal: no cyanosis or clubbing, extremities motor strength 5/5 Skin: no rashes, warm and dry Neurologic: patellar DTR's 2+ bilat, sensation intact and PERRL, EOMI, accommodation nl, no face palsy, no dysarthria Psychiatric: A+Ox3, euthymic affect Lymphatic: no cervical or axillary lymphadenopathy Results & Data Vital Signs (Past 12 Hours) Vital Signs Temp Pulse Pulse Pulse Resp BP Pulse Ox 07/31/19 19:22 36.8 C 104 H 24 134/76 97 07/31/19 18:58 81 18 96 07/31/19 16:00 76 07/31/19 15:43 36.6 C 75 21 129/75 94 07/31/19 15:19 73 17 95 07/31/19 11:48 36.9 C 83 23 153/79 H 94 07/31/19 11:44 87 18 07/31/19 11:06 77 20 98 Laboratory Results Laboratory Results - last 24 hr 07/30/19 07/31/19 07/31/19 22:33 04:16 04:16 WBC 10.57 RBC 4.05 L Hgb 9.0 L 8.7 L Hct 30.2 L 29.5 L MCV 72.8 L MCH 21.5 L MCHC 29.5 L RDW Std Deviation 43.9 RDW Coeff of Eleazar 16.4 H Plt Count 219 MPV 9.3 Immature Gran % (Auto) 0.3 Neut % (Auto) 87.8 Lymph % (Auto) 8.8 [place] % (Auto) 3.1 Eos % (Auto) 0.0 Baso % (Auto) 0.0 Immature Gran # (Auto) 0.03 H Neut # (Auto) 9.28 H Lymph # (Auto) 0.93 L [place] # (Auto) 0.33 Eos # (Auto) 0.00 Baso # (Auto) 0.00 Hypochromasia Present Microcytosis Present Sodium Potassium Chloride Carbon Dioxide Anion Gap BUN Creatinine Est Cr Clr Drug Dosing Est GFR ( Amer) Est GFR (Non-Af Amer) BUN/Creatinine Ratio Glucose Calcium Total Bilirubin AST ALT Alkaline Phosphatase Total Protein Albumin Globulin Albumin/Globulin Ratio Procalcitonin 16.22 H 07/31/19 07/31/19 07/31/19 04:16 10:23 16:03 WBC RBC Hgb 8.5 L 9.2 L Hct 28.7 L 30.6 L MCV MCH MCHC RDW Std Deviation RDW Coeff of Eleazar Plt Count MPV Immature Gran % (Auto) Neut % (Auto) Lymph % (Auto) [place] % (Auto) Eos % (Auto) Baso % (Auto) Immature Gran # (Auto) Neut # (Auto) Lymph # (Auto) [place] # (Auto) Eos # (Auto) Baso # (Auto) Hypochromasia Microcytosis Sodium 146 H Potassium 3.8 Chloride 112 H Carbon Dioxide 25 Anion Gap 9.0 BUN 14 Creatinine 1.45 H Est Cr Clr Drug Dosing 29.5 Est GFR ( Amer) 42.8 Est GFR (Non-Af Amer) 36.9 BUN/Creatinine Ratio 9.7 L Glucose 114 H Calcium 8.3 L D Total Bilirubin 0.4 AST 11 L ALT 13 Alkaline Phosphatase 71 Total Protein 5.9 L D Albumin 2.8 L Globulin 3.1 Albumin/Globulin Ratio 0.9 Procalcitonin Medications Administered Current Inpatient Medications Albuterol (Duoneb) 3 ml NEB Q4R LINDSAY Stop: 08/29/19 02:59 Last Admin: 07/31/19 18:57 Dose: 3 ml Documented by: Aspirin (Aspirin Chew) 81 mg PO DAILY LINDSAY Stop: 08/29/19 08:59 Last Admin: 07/31/19 09:34 Dose: Not Given Documented by: Buspirone HCl (Buspar) 15 mg PO TID LINDSAY Stop: 08/29/19 08:59 Last Admin: 07/31/19 20:16 Dose: Not Given Documented by: Heparin Sodium (Porcine) (Heparin Sodium (Porcine)) 5,000 units SQ Q12 LINDSAY Stop: 08/29/19 08:59 Last Admin: 07/30/19 11:25 Dose: Not Given Documented by: Methylprednisolone 40 mg/ (Syringe) 0.64 mls @ 1.5 mls/min IV DAILY LINDSAY Stop: 08/29/19 08:59 Last Admin: 07/31/19 09:35 Dose: 1.5 mls/min Documented by: Metronidazole (Flagyl) 500 mg in 100 mls @ 100 mls/hr IV Q8H LINDSAY Stop: 08/09/19 03:59 Last Infusion: 07/31/19 21:55 Dose: Infused Documented by: Parenteral Electrolytes (Normosol-R) 1,000 mls @ 80 mls/hr IV .[id number] [facility] Stop: 08/29/19 04:44 Last Admin: 07/31/19 15:52 Dose: 80 mls/hr Documented by: Cefepime HCl 2,000 mg/ Syringe 20 mls @ 5 mls/min IV Q12H [facility] Stop: 08/09/19 15:59 Last Admin: 07/31/19 16:02 Dose: 5 mls/min Documented by: Acetaminophen (Ofirmev) 65 mls @ 200 mls/hr IV Q8H PRN PRN Reason: Headache or Pain Stop: 08/29/19 09:59 Last Infusion: 07/31/19 19:27 Dose: Infused Documented by: Vancomycin HCl 750 mg/ Sodium (Chloride) 265 mls @ 125 mls/hr IV Q20H [facility] Stop: 08/07/19 03:59 Last Infusion: 07/31/19 05:43 Dose: Infused Documented by: Promethazine HCl 6.25 mg/ (Sodium Chloride) 50.25 mls @ 201 mls/hr IV Q6H PRN PRN Reason: Nausea And Vomiting Stop: 08/29/19 22:52 Last Infusion: 07/31/19 20:15 Dose: Infused Documented by: Lorazepam (Ativan) 0.5 mg in 1 mls @ 0.5 mls/min IV BID PRN PRN Reason: Anxiety/Agitation Stop: 08/29/19 22:52 Last Admin: 07/31/19 21:12 Dose: 0.5 mls/min Documented by: Lorazepam (Ativan) 0.5 mg PO BID PRN PRN Reason: Anxiety Stop: 08/29/19 01:03 Magnesium Hydroxide (Milk Of Magnesia) 30 ml PO DAILY PRN PRN Reason: Constipation Stop: 08/29/19 01:03 Metoprolol Tartrate (Lopressor) 25 mg PO BID [facility] Stop: 08/29/19 08:59 Last Admin: 07/31/19 20:16 Dose: Not Given Documented by: Miscellaneous Information (Consult) 1 ea N/A UD PRN PRN Reason: Consult Stop: 08/29/19 03:40 Miscellaneous Information (Cefepime Consult Active) 1 ea N/A UD PRN PRN Reason: Consult Stop: 08/29/19 04:07 Oxycodone HCl (Roxicodone Immediate Rel) 5 mg PO Q6H PRN PRN Reason: pain 5-10 Stop: 08/13/19 01:03 Pantoprazole Sodium (Protonix) 40 mg PO BID [facility] Stop: 08/29/19 08:59 Last Admin: 07/31/19 20:16 Dose: Not Given Documented by: Ranitidine HCl (Zantac) 150 mg PO BID [facility] Stop: 08/29/19 08:59 Last Admin: 07/30/19 10:59 Dose: Not Given Documented by: Sennosides (Senokot) 8.8 mg PO BID PRN PRN Reason: Constipation Stop: 08/30/19 07:32 Venlafaxine HCl (Effexor Extended Release) 75 mg PO DAILY [facility] Stop: 08/29/19 08:59 Last Admin: 07/31/19 09:34 Dose: Not Given Documented by: PG Care Time/CCT Total # of Minutes Spent Total Time Spent with Patient: Total time spent is greater than 50% in coordination of care (as documented) at patient's floor/unit and/or counseling patient: (1) Respiratory failure Chronicity: acute Respiratory failure complication: hypoxia and hypercapnia Qualified Code(s): J96.01 - Acute respiratory failure with hypoxia; J96.02 - Acute respiratory failure with hypercapnia (2) Left lower lobe pneumonia Pneumonia type: due to unspecified organism Qualified Code(s): J18.1 - Lobar pneumonia, unspecified organism
[2019-07-31] MEDS ORDERED: VANCOMYCIN TROUGH ONE (23:30)
[2019-08-01] MEDS: VANCOMYCIN HCL 750 MG in SODIUM CHLORIDE 0.9% 250 ML IV SCH ×2 (00:03→15:07)
[2019-08-01] MEDS: CEFEPIME 2,000 MG in SYRINGE 7.5 ML IV SCH ×2 (03:43→16:11)
[2019-08-01] MEDS: metroNIDAZOLE 500 MG/100 ML BAG IV SCH ×3 (03:43→20:05)
[2019-08-01] MEDS: ALBUT/IPRATROP 3MG/0.5MG NEB 3 ML VIAL NEB SCH ×5 (03:51→19:56)
[2019-08-01] MEDS: NORMOSOL-R 1,000 ML IV SCH ×2 (03:59→18:11)
[2019-08-01 06:21] LABS: Eosinophils # (auto) 0.02 K/uL (0-0.5); Eosinophils % (auto) 0.3 %; Hematocrit (blood only) 28.7 % (37-47); Hemoglobin 8.5 g/dL (12.0-16.0); Immature Granulocytes # (auto) 0.03 K/uL (0.00-0.02); Immature Granulocytes % (auto) 0.4 %; Lymphocytes # (auto) 0.84 K/uL (1.2-3.4); Lymphocytes % (auto) 11.4 %; Mean Corpuscular Hemoglobin 21.3 pg (25-34); Mean Corpuscular Hgb Conc 29.6 g/dL (32-36); Mean Corpuscular Volume 71.8 fL (80-100); Mean Platelet Volume 9.1 fL (7.4-10.4); Monocytes # (auto) 0.45 K/uL (0.11-0.59); Monocytes % (auto) 6.1 %; Neutrophils # (auto) 6.05 K/uL (1.4-6.5); Neutrophils % (auto) 81.8 %; Platelet Count 210 K/uL (130-400); RDW Coefficient of Variation 16.9 % (11.5-14.5); White Blood Count 7.39 K/uL (4.8-10.8)
[2019-08-01 06:45] LABS: Hypochromasia Present
[2019-08-01 07:01] LABS: Albumin Level 2.7 gm/dl (3.4-5.0); BUN Creatinine Ratio 12.5 (10-20); Calcium 8.5 mg/dl (8.5-10.1); Creatinine Clr Calc Pharmacy 43.4 ml/min; Est GFR (African American) 64.7; Est GFR (Non-African American) 55.8; Potassium 3.5 mmol/L (3.5-5.1)
[2019-08-01 07:04] LABS: Bilirubin,Total 0.4 mg/dl (0.2-1); Globulin 2.8 gm/dl (2.5-4.0); Total Protein 5.5 gm/dl (6.4-8.2)
--- NOTE | 2019-08-01 07:54 | Surgery Progress Note ---
Date of Service August 01, 2019 Assessment & Plan (1) Dilatation of colon: no acute changes- H/H stabilized- no evidence of active bleeding pt very dehydrated on adm no surgical intervention needed at this time- she is extremely high risk Gaby Harry/ Dino following over weekend Results & Data Vital Signs (Past 12 Hours) Vital Signs Temp Pulse Pulse Resp BP Pulse Ox 08/01/19 07:46 36.5 C 86 20 148/76 H 95 08/01/19 07:12 77 18 97 08/01/19 03:51 80 16 94 08/01/19 03:39 36.5 C 80 22 137/77 90 08/01/19 00:00 36.6 C 84 78 18 123/71 93 07/31/19 23:22 80 16 95 PG Care Time/CCT Total # of Minutes Spent Total Time Spent with Patient: Total time spent is greater than 50% in coordination of care (as documented) at patient's floor/unit and/or counseling patient:
--- NOTE | 2019-08-01 09:01 | Pharmacy Report ---
Pharmacy Abx Dose Short Note - Date of Service August 01, 2019 - Assessment & Plan Assessment 69 year old F receiving vancomycin, cefepime, and metronidazole for treatment of Left lower lobe pneumonia likely due to aspiration and colitis. * Day # 3 of antimicrobial therapy * 12/14 BC reported no growth to date and preliminary sputum culture with heavy normal alfredo * Pt did have a positive MRSA nasal swab * WBC count is now WNL, procalcitonin remained significantly elevated on 07/31 Plan Vancomycin * Trough level of 13.3 mcg/mL is subtherapeutic. This level is difficult to interpret due to fluctuating renal function and level drawn prior to steady state. Based on this level the patient has an estimated vanco half life of ~14 hours. * Change to 750 mg IV every 16 hours * If Scr remains stable at ~1.0 mg/dL, I suspect dosing interval will need to be decreased to q12 hours. * Goal trough level for pnx : 15 to 20 mcg/mL * Trough level ordered for: 08/02/19 @ 2130 - trough level drawn prior to 3rd dose to ensure patient is not being underdosed Cefepime * Continue 2000 mg IV every 12 hours for CrCl 30-60 ml/min Pharmacy will continue to follow and will adjust dose/frequency as necessary. Thank you.
[2019-08-01] MEDS: methylPREDNISolone 40 MG in SYRINGE 0 ML IV SCH (09:11)
[2019-08-01] MEDS: PANTOprazole 40 MG TAB PO SCH ×2 (10:11→21:30)
[2019-08-01] MEDS: BusPIRone 15 MG TAB PO SCH ×3 (10:12→21:30)
[2019-08-01] MEDS: VENLAFAXINE HCL XR 37.5 MG CAPXR PO SCH (10:12)
[2019-08-01] MEDS: METOPROLOL TARTRATE 25 MG TAB PO SCH ×2 (10:12→21:30)
[2019-08-01] MEDS: ASPIRIN 81 MG CHEW PO SCH (10:12)
[2019-08-01] MEDS: MoRPHine SULFATE 2 MG/ML CARP IV PRN (12:30)
[2019-08-01] MEDS: LORazepam 0.5 MG/1 ML VIAL IV PRN (13:19)
[2019-08-01] MEDS: PROMETHAZINE HCL 6.25 MG in SODIUM CHLORIDE 0.9% 50 ML IV PRN ×2 (14:42→21:41)
[2019-08-01] MEDS: MoRPHine SULFATE 4 MG/ML 1 ML CARP\\VIAL IV PRN ×2 (16:02→20:16)
[2019-08-01] MEDS: ACETAMINOPHEN 65 ML IV PRN (18:10)
[2019-08-01] MEDS ORDERED: VANCOMYCIN TROUGH ONE (19:30)
--- NOTE | 2019-08-01 19:30 | Hospitalist Progress Note ---
Date of Service August 01, 2019 Assessment & Plan (1) Respiratory failure: Acute and chronic respiratory failure acute due to pneumonia breathing well via stoma no increased distress (2) Left lower lobe pneumonia: likely due to aspiration pneumonia had an episode on 08/01 of coughing up recently swallowed food will need to determine if she has a fistula continue Cefepime, Vanco, Flagyl WBC down to 8k no growth on blood or sputum cultures (3) IZABEL (acute kidney injury): present on arrival treated with IV fluids, likely prerenal and related to pneumonia improved to 1.0 today (4) COPD (chronic obstructive pulmonary disease): no wheezing on exam, no signs of distress (5) Laryngeal cancer: s/p laryngectomy, there should be no connection between stoma and oral cavity (6) Tracheostomy present: now breathing comfortably via stoma, trach removed (7) Anxiety: (8) GERD (gastroesophageal reflux disease): (9) Dilatation of colon: less pain today, likely just some colitis continue Cefepime and Flagyl WBC normal, lactate normal surgery following Palliative care following, working on speaking with family about code status, goals of care Subjective patient seen this morning, resting comfortably vitals stable, mild abdominal pain labs reviewed, WBC normal, Hb a little low at 8, BMP stable transferred to medical floor later in the day she was being fed by RN and after swallowing she coughed her stoma produced what looked like food that she had just swallowed this was confusing as her anatomy should have no connection to her airway discussed with pulmonary, could consider a fistula formation can discuss with ENT over the weekend will make patient NPO again Review of Systems Review of Systems: All systems reviewed & are unremarkable except as noted in HPI & below Respiratory: + cough and + problem reported (coughing up food, suggesting aspiration) Gastrointestinal: + abdominal pain (mild, diffuse) Physical Exam Constitutional: + thin, + cachectic and + frail appearing; no acute distress Eyes: PERRL, conjunctivae normal, anicteric sclerae ENMT: external ear and nose normal, oropharynx normal Neck: trachea midline; + abnormal visual inspection (open stoma connected to trachea) Respiratory: normal respiratory effort, lungs clear to auscultation Auscultation: + crackles (left lower lobe) Cardiovascular: Rate/Rhythm: regular rate and + tachycardic Heart Sounds: normal S1 and normal S2; no murmur Vessels: no JVD Extremities: normal capillary refill; no edema Gastrointestinal (Abdomen): normal bowel sounds, soft, nontender, no hepatosplenomegaly Musculoskeletal: no cyanosis or clubbing, extremities motor strength 5/5 Skin: no rashes, warm and dry Neurologic: patellar DTR's 2+ bilat, sensation intact and PERRL, EOMI, accommodation nl, no face palsy, no dysarthria Psychiatric: A+Ox3, euthymic affect Lymphatic: no cervical or axillary lymphadenopathy Results & Data Vital Signs (Past 12 Hours) Vital Signs Temp Pulse Pulse Resp BP BP Pulse Ox 08/01/19 15:30 77 18 96 08/01/19 14:52 37.5 C 109 H 16 136/74 93 08/01/19 11:49 36.8 C 109 H 20 144/73 H 96 08/01/19 10:58 94 H 16 98 08/01/19 08:00 62 08/01/19 07:46 36.5 C 86 20 148/76 H 95 Laboratory Results Laboratory Results - last 24 hr 07/31/19 08/01/19 08/01/19 23:02 06:05 06:05 WBC 7.39 RBC 4.00 L Hgb 8.5 L Hct 28.7 L MCV 71.8 L MCH 21.3 L MCHC 29.6 L RDW Std Deviation 44.0 RDW Coeff of Eleazar 16.9 H Plt Count 210 MPV 9.1 Immature Gran % (Auto) 0.4 Neut % (Auto) 81.8 Lymph % (Auto) 11.4 Brantley % (Auto) 6.1 Eos % (Auto) 0.3 Baso % (Auto) 0.0 Immature Gran # (Auto) 0.03 H Neut # (Auto) 6.05 Lymph # (Auto) 0.84 L Brantley # (Auto) 0.45 Eos # (Auto) 0.02 Baso # (Auto) 0.00 Hypochromasia Present Sodium 146 H Potassium 3.5 Chloride 116 H Carbon Dioxide 23 Anion Gap 8.0 BUN 13 Creatinine 1.03 Est Cr Clr Drug Dosing 43.4 Est GFR ( Amer) 64.7 Est GFR (Non-Af Amer) 55.8 BUN/Creatinine Ratio 12.5 Glucose 91 Lactate Calcium 8.5 Total Bilirubin 0.4 AST 16 ALT 12 Alkaline Phosphatase 64 Total Protein 5.5 L Albumin 2.7 L Globulin 2.8 Albumin/Globulin Ratio 1.0 Vancomycin Trough 13.3 08/01/19 06:11 WBC RBC Hgb Hct MCV MCH MCHC RDW Std Deviation RDW Coeff of Eleazar Plt Count MPV Immature Gran % (Auto) Neut % (Auto) Lymph % (Auto) Brantley % (Auto) Eos % (Auto) Baso % (Auto) Immature Gran # (Auto) Neut # (Auto) Lymph # (Auto) Brantley # (Auto) Eos # (Auto) Baso # (Auto) Hypochromasia Sodium Potassium Chloride Carbon Dioxide Anion Gap BUN Creatinine Est Cr Clr Drug Dosing Est GFR ( Amer) Est GFR (Non-Af Amer) BUN/Creatinine Ratio Glucose Lactate 0.7 Calcium Total Bilirubin AST ALT Alkaline Phosphatase Total Protein Albumin Globulin Albumin/Globulin Ratio Vancomycin Trough Medications Administered Current Inpatient Medications Albuterol (Duoneb) 3 ml NEB Q4R [facility] Stop: 08/29/19 02:59 Last Admin: 08/01/19 15:26 Dose: 3 ml Documented by: Aspirin (Aspirin Chew) 81 mg PO DAILY [facility] Stop: 08/29/19 08:59 Last Admin: 08/01/19 10:12 Dose: Not Given Documented by: Buspirone HCl (Buspar) 15 mg PO TID [facility] Stop: 08/29/19 08:59 Last Admin: 08/01/19 14:27 Dose: Not Given Documented by: Heparin Sodium (Porcine) (Heparin Sodium (Porcine)) 5,000 units SQ Q12 [facility] Stop: 08/29/19 08:59 Last Admin: 07/30/19 11:25 Dose: Not Given Documented by: Methylprednisolone 40 mg/ (Syringe) 0.64 mls @ 1.5 mls/min IV DAILY [facility] Stop: 08/29/19 08:59 Last Admin: 08/01/19 09:11 Dose: 1.5 mls/min Documented by: Metronidazole (Flagyl) 500 mg in 100 mls @ 100 mls/hr IV Q8H [facility] Stop: 08/09/19 03:59 Last Infusion: 08/01/19 14:49 Dose: Infused Documented by: Parenteral Electrolytes (Normosol-R) 1,000 mls @ 80 mls/hr IV .[id number] [facility] Stop: 08/29/19 04:44 Last Admin: 08/01/19 18:11 Dose: 80 mls/hr Documented by: Cefepime HCl 2,000 mg/ Syringe 20 mls @ 5 mls/min IV Q12H [facility] Stop: 08/09/19 15:59 Last Admin: 08/01/19 16:11 Dose: 5 mls/min Documented by: Acetaminophen (Ofirmev) 65 mls @ 200 mls/hr IV Q8H PRN PRN Reason: Headache or Pain Stop: 08/29/19 09:59 Last Infusion: 08/01/19 18:36 Dose: Infused Documented by: Promethazine HCl 6.25 mg/ (Sodium Chloride) 50.25 mls @ 201 mls/hr IV Q6H PRN PRN Reason: Nausea And Vomiting Stop: 08/29/19 22:52 Last Infusion: 08/01/19 15:09 Dose: Infused Documented by: Vancomycin HCl 750 mg/ Sodium (Chloride) 265 mls @ 125 mls/hr IV Q16H [facility] Stop: 08/07/19 03:59 Last Infusion: 08/01/19 17:44 Dose: Infused Documented by: Lorazepam (Ativan) 0.5 mg in 1 mls @ 1 mls/min IV Q12 PRN PRN Reason: Anxiety/Agitation Stop: 08/31/19 11:44 Last Admin: 08/01/19 13:19 Dose: 1 mls/min Documented by: Lorazepam (Ativan) 0.5 mg PO BID PRN PRN Reason: Anxiety Stop: 08/29/19 01:03 Magnesium Hydroxide (Milk Of Magnesia) 30 ml PO DAILY PRN PRN Reason: Constipation Stop: 08/29/19 01:03 Metoprolol Tartrate (Lopressor) 25 mg PO BID [facility] Stop: 08/29/19 08:59 Last Admin: 08/01/19 10:12 Dose: Not Given Documented by: Miscellaneous Information (Consult) 1 ea N/A UD PRN PRN Reason: Consult Stop: 08/29/19 03:40 Miscellaneous Information (Cefepime Consult Active) 1 ea N/A UD PRN PRN Reason: Consult Stop: 08/29/19 04:07 Morphine Sulfate (Morphine Sulfate) 2 mg IV Q4H PRN PRN Reason: Pain Stop: 08/15/19 11:44 Last Admin: 08/01/19 12:30 Dose: 2 mg Documented by: Morphine Sulfate (Morphine Sulfate) 4 mg IV Q4H PRN PRN Reason: Severe Pain Stop: 08/15/19 11:44 Last Admin: 08/01/19 16:02 Dose: 4 mg Documented by: Oxycodone HCl (Roxicodone Immediate Rel) 5 mg PO Q6H PRN PRN Reason: pain 5-10 Stop: 08/13/19 01:03 Pantoprazole Sodium (Protonix) 40 mg PO BID [facility] Stop: 08/29/19 08:59 Last Admin: 08/01/19 10:11 Dose: Not Given Documented by: Ranitidine HCl (Zantac) 150 mg PO BID [facility] Stop: 08/29/19 08:59 Last Admin: 07/30/19 10:59 Dose: Not Given Documented by: Sennosides (Senokot) 8.8 mg PO BID PRN PRN Reason: Constipation Stop: 08/30/19 07:32 Venlafaxine HCl (Effexor Extended Release) 75 mg PO DAILY [facility] Stop: 08/29/19 08:59 Last Admin: 08/01/19 10:12 Dose: Not Given Documented by: PG Care Time/CCT Total # of Minutes Spent Total Time Spent with Patient: Total time spent is greater than 50% in coordination of care (as documented) at patient's floor/unit and/or counseling patient: (1) Respiratory failure Chronicity: acute Respiratory failure complication: hypoxia and hypercapnia Qualified Code(s): J96.01 - Acute respiratory failure with hypoxia; J96.02 - Acute respiratory failure with hypercapnia (2) Left lower lobe pneumonia Pneumonia type: due to unspecified organism Qualified Code(s): J18.1 - Lobar pneumonia, unspecified organism
[2019-08-01] MEDS: SODIUM CHLOR 0.45% + 20MEQ KCL 20 MEQ/1,000 ML BAG IV SCH (21:03)
[2019-08-01] MEDS: HEPARIN SOD 5,000 UNIT/0.5 ML VIAL SQ SCH (23:33)
[2019-08-02] MEDS: ALBUT/IPRATROP 3MG/0.5MG NEB 3 ML VIAL NEB SCH ×7 (00:05→23:20)
[2019-08-02] MEDS: MoRPHine SULFATE 4 MG/ML 1 ML CARP\\VIAL IV PRN ×3 (00:16→21:01)
[2019-08-02] MEDS: LORazepam 0.5 MG/1 ML VIAL IV PRN ×2 (00:48→13:21)
[2019-08-02] MEDS: CEFEPIME 2,000 MG in SYRINGE 7.5 ML IV SCH ×2 (04:19→17:32)
[2019-08-02] MEDS: ACETAMINOPHEN 65 ML IV PRN ×2 (04:24→13:21)
[2019-08-02] MEDS: PROMETHAZINE HCL 6.25 MG in SODIUM CHLORIDE 0.9% 50 ML IV PRN ×2 (04:46→12:00)
[2019-08-02] MEDS: metroNIDAZOLE 500 MG/100 ML BAG IV SCH ×3 (05:08→21:04)
[2019-08-02] MEDS: VANCOMYCIN HCL 750 MG in SODIUM CHLORIDE 0.9% 250 ML IV SCH ×2 (06:09→22:41)
[2019-08-02] MEDS: methylPREDNISolone 40 MG in SYRINGE 0 ML IV SCH (07:31)
[2019-08-02] MEDS: SODIUM CHLOR 0.45% + 20MEQ KCL 20 MEQ/1,000 ML BAG IV SCH ×2 (07:31→18:17)
--- NOTE | 2019-08-02 08:21 | Surgery Progress Note ---
Date of Service August 02, 2019 Assessment & Plan (1) Dilatation of colon: Colonic dilatation Pneumonia No evidence of peritonitis at the present time Colonic function is present No indication for surgical intervention at this time Subjective Resting comfortably Abdominal discomfort similar to yesterday Passing flatus No nausea or vomiting T-max 37.5 Physical Exam Gastrointestinal (Abdomen): Inspection/Auscultation: + abdomen distended Percussion/Palpation: + abdomen tender (Mild mostly on left) Results & Data Vital Signs (Past 12 Hours) Vital Signs Temp Pulse Resp BP Pulse Ox 08/02/19 07:40 36.9 C 65 20 166/99 H 93 08/02/19 06:58 76 18 98 08/02/19 03:02 78 18 98 08/02/19 00:05 80 18 97 08/01/19 22:20 37.2 C 101 H 16 142/82 H 96 Laboratory Results 08/02/19 08/01/19 Range/Units 07:49 19:35 POC Glucose 77 131 H (70-99)
[2019-08-02] MEDS: MoRPHine SULFATE 2 MG/ML CARP IV PRN (09:09)
[2019-08-02] MEDS: ASPIRIN 81 MG CHEW PO SCH (09:19)
[2019-08-02] MEDS: HEPARIN SOD 5,000 UNIT/0.5 ML VIAL SQ SCH ×2 (09:19→21:12)
[2019-08-02] MEDS: VENLAFAXINE HCL XR 37.5 MG CAPXR PO SCH ×2 (09:19→14:28)
[2019-08-02] MEDS: BusPIRone 15 MG TAB PO SCH ×4 (09:19→21:11)
[2019-08-02] MEDS: PANTOprazole 40 MG TAB PO SCH ×3 (09:20→21:12)
[2019-08-02] MEDS: METOPROLOL TARTRATE 25 MG TAB PO SCH ×3 (09:20→21:12)
[2019-08-02 10:05] LABS: BUN Creatinine Ratio 11.9 (10-20); Calcium 8.1 mg/dl (8.5-10.1); Creatinine Clr Calc Pharmacy 40.6 ml/min; Est GFR (African American) 59.7; Est GFR (Non-African American) 51.5; Potassium 3.8 mmol/L (3.5-5.1)
[2019-08-02 10:06] LABS: Bilirubin,Total 0.6 mg/dl (0.2-1); Globulin 3.1 gm/dl (2.5-4.0); Total Protein 6.1 gm/dl (6.4-8.2)
[2019-08-02 10:13] LABS: Hematocrit (blood only) 31.8 % (37-47); Hemoglobin 9.2 g/dL (12.0-16.0); Mean Corpuscular Hemoglobin 21.1 pg (25-34); Mean Corpuscular Hgb Conc 28.9 g/dL (32-36); Mean Corpuscular Volume 73.1 fL (80-100); Platelet Count 218 K/uL (130-400); RDW Coefficient of Variation 17.1 % (11.5-14.5); RDW Standard Deviation 45.6 fL (36.4-46.3); Red Blood Count 4.35 M/uL (4.2-5.4); White Blood Count 10.74 K/uL (4.8-10.8)
[2019-08-02 10:31] LABS: Eosinophils # (auto) 0.15 K/uL (0-0.5); Eosinophils % (auto) 1.4 %; Hypochromasia Present; Immature Granulocytes # (auto) 0.04 K/uL (0.00-0.02); Immature Granulocytes % (auto) 0.4 %; Lymphocytes # (auto) 0.78 K/uL (1.2-3.4); Lymphocytes % (auto) 7.3 %; Monocytes # (auto) 0.39 K/uL (0.11-0.59); Monocytes % (auto) 3.6 %; Neutrophils # (auto) 9.38 K/uL (1.4-6.5); Neutrophils % (auto) 87.3 %
--- NOTE | 2019-08-02 16:07 | Hospitalist Progress Note ---
Date of Service August 02, 2019 Assessment & Plan (1) Respiratory failure: Acute and chronic respiratory failure acute due to pneumonia, aspiration breathing well via stoma no increased distress (2) Left lower lobe pneumonia: due to aspiration, evidence that food is getting into her trachea had an episode on 08/01 and 08/02 of coughing up recently swallowed food will need to determine if she has a fistula will d/w radiology, likely a barium swallow would be good first step in identifying connection continue Cefepime, Vanco, Flagyl WBC 10k no growth on blood or sputum cultures (3) IZABEL (acute kidney injury): present on arrival treated with IV fluids, likely prerenal and related to pneumonia improved to 1.0 today (4) COPD (chronic obstructive pulmonary disease): no wheezing on exam, no signs of distress (5) Laryngeal cancer: s/p laryngectomy, there should be no connection between stoma and oral cavity however, she is coughing up chocolate pudding and coffee, witness on 08/01 and 08/02 (6) Tracheostomy present: now breathing comfortably via stoma, trach removed (7) Anxiety: (8) GERD (gastroesophageal reflux disease): (9) Dilatation of colon: likely colitis continue Cefepime and Flagyl WBC normal, lactate normal surgery following Palliative care following, working on speaking with family about code status, goals of care Subjective patient had uneventful night she is upset that she cannot eat or drink had the RN bring in coffee and pudding and watched her swallow no difficulty swallowing about one minute after swallowing the chocolate pudding there was thin pudding coughed up from her stoma at no point did she appear to be in distress offered to give her her medications but she refused to try to swallow them, even with pudding her lungs have some rhonchi but clear with cough abdomen is still a little sore and distended, c/o some pain no fever or chills labs show a WBC of 10k, Hb 9, BMP is normal discussed with patient that we will start some fluids, will need to ask ENT to re-evaluate discussed that this is not emergent as she is stable, can have them see her on Sunday Review of Systems Review of Systems: All systems reviewed & are unremarkable except as noted in HPI & below Respiratory: + cough and + sputum production; no dyspnea, no pain with cough and no wheezing Cardiovascular: no chest pain and no edema Gastrointestinal: + abdominal pain; no nausea, no vomiting, no constipation and no diarrhea/loose stools Physical Exam Constitutional: + thin, + cachectic and + frail appearing; no acute distress Eyes: PERRL, conjunctivae normal, anicteric sclerae ENMT: external ear and nose normal, oropharynx normal Neck: trachea midline; + abnormal visual inspection (open stoma connected to trachea, secretions consistent with recent food) Respiratory: normal respiratory effort, lungs clear to auscultation Auscultation: + crackles (left lower lobe) Cardiovascular: Rate/Rhythm: regular rate and + tachycardic Heart Sounds: normal S1 and normal S2; no murmur Vessels: no JVD Extremities: normal capillary refill; no edema Gastrointestinal (Abdomen): normal bowel sounds, soft, nontender, no hepatosplenomegaly Musculoskeletal: no cyanosis or clubbing, extremities motor strength 5/5 Skin: no rashes, warm and dry Neurologic: patellar DTR's 2+ bilat, sensation intact and PERRL, EOMI, accommodation nl, no face palsy, no dysarthria Psychiatric: A+Ox3, euthymic affect Lymphatic: no cervical or axillary lymphadenopathy Results & Data Vital Signs (Past 12 Hours) Vital Signs Temp Pulse Resp BP Pulse Ox 08/02/19 15:16 103 H 18 98 08/02/19 11:06 76 16 91 08/02/19 07:40 36.9 C 65 20 166/99 H 93 08/02/19 06:58 76 18 98 Laboratory Results Laboratory Results - last 24 hr 08/01/19 08/02/19 08/02/19 19:35 07:49 08:58 WBC Cancelled RBC Cancelled Hgb Cancelled Hct Cancelled MCV Cancelled MCH Cancelled MCHC Cancelled RDW Std Deviation Cancelled RDW Coeff of Eleazar Cancelled Plt Count Cancelled MPV Cancelled Immature Gran % (Auto) Cancelled Neut % (Auto) Cancelled Lymph % (Auto) Cancelled [place] % (Auto) Cancelled Eos % (Auto) Cancelled Baso % (Auto) Cancelled Immature Gran # (Auto) Cancelled Neut # (Auto) Cancelled Lymph # (Auto) Cancelled [place] # (Auto) Cancelled Eos # (Auto) Cancelled Baso # (Auto) Cancelled Absolute Nucleated RBC Cancelled Nucleated RBC % (auto) Cancelled Neutrophils % (Manual) Cancelled Band Neutrophils % Cancelled Lymphocytes % (Manual) Cancelled Prolymphocyte % Cancelled Reactive Lymphs % (Man) Cancelled Monocytes % (Manual) Cancelled Eosinophils % (Manual) Cancelled Basophils % (Manual) Cancelled Metamyelocytes % (Man) Cancelled Myelocytes % (Man) Cancelled Promyelocytes % (Man) Cancelled Blast Cells % (Manual) Cancelled Plasma Cell % (Manual) Cancelled Other Cells % Cancelled Nucleated RBC % Cancelled Neutrophils # (Manual) Cancelled Band Neutrophils # Cancelled Total Absolute Neuts Cancelled Lymphocytes # (Manual) Cancelled Prolymphocyte # Cancelled Reactive Lymphs # Cancelled Total Abs Lymphocytes Cancelled Monocytes # (Manual) Cancelled Eosinophils # (Manual) Cancelled Basophils # (Manual) Cancelled Metamyelocytes # (Man) Cancelled Myelocytes # (Manual) Cancelled Promyelocytes # (Man) Cancelled Blast Cells # (Man) Cancelled Plasma Cell # (Manual) Cancelled Other Cells # Cancelled Nucleated RBCs # (Man) Cancelled Hypersegmented Neuts Cancelled Hyposegmented Neuts Cancelled Hypogranular Neuts Cancelled Large Granular Lymphs Cancelled # Lrg Granular Lymphs Cancelled Hairy Cells Cancelled Smudge Cells Cancelled Toxic Granulation Cancelled Toxic Vacuolation Cancelled Dohle Bodies Cancelled Kristian Rods Cancelled Platelet Estimate Cancelled Hypogranular Platelets Cancelled Clumped Platelets Cancelled Giant Platelets Cancelled Platelet Satelliting Cancelled RBC Morphology Cancelled Polychromasia Cancelled Hypochromasia Cancelled Poikilocytosis Cancelled Basophilic Stippling Cancelled Anisocytosis Cancelled Microcytosis Cancelled Macrocytosis Cancelled Spherocytes Cancelled Pappenheimer Bodies Cancelled Sickle Cells Cancelled Target Cells Cancelled Tear Drop Cells Cancelled Ovalocytes Cancelled Stomatocytes Cancelled [place]-Galva Bodies Cancelled Echinocytes Cancelled Acanthocytes (Spur) Cancelled Rouleaux Cancelled RBC Agglutinates Cancelled Schistocytes Cancelled RBC Morph Comment Cancelled Sezary Cell Cancelled Sodium Potassium Chloride Carbon Dioxide Anion Gap BUN Creatinine Est Cr Clr Drug Dosing Est GFR ( Amer) Est GFR (Non-Af Amer) BUN/Creatinine Ratio Glucose POC Glucose 131 H 77 Calcium Total Bilirubin AST ALT Alkaline Phosphatase Total Protein Albumin Globulin Albumin/Globulin Ratio Specimen Hemolysis 09/21/19 09/21/19 08:58 09:43 WBC 10.74 RBC 4.35 Hgb 9.2 L Hct 31.8 L MCV 73.1 L MCH 21.1 L MCHC 28.9 L RDW Std Deviation 45.6 RDW Coeff of Eleazar 17.1 H Plt Count 218 MPV 9.0 Immature Gran % (Auto) 0.4 Neut % (Auto) 87.3 Lymph % (Auto) 7.3 [place] % (Auto) 3.6 Eos % (Auto) 1.4 Baso % (Auto) 0.0 Immature Gran # (Auto) 0.04 H Neut # (Auto) 9.38 H Lymph # (Auto) 0.78 L [place] # (Auto) 0.39 Eos # (Auto) 0.15 Baso # (Auto) 0.00 Absolute Nucleated RBC Nucleated RBC % (auto) Neutrophils % (Manual) Band Neutrophils % Lymphocytes % (Manual) Prolymphocyte % Reactive Lymphs % (Man) Monocytes % (Manual) Eosinophils % (Manual) Basophils % (Manual) Metamyelocytes % (Man) Myelocytes % (Man) Promyelocytes % (Man) Blast Cells % (Manual) Plasma Cell % (Manual) Other Cells % Nucleated RBC % Neutrophils # (Manual) Band Neutrophils # Total Absolute Neuts Lymphocytes # (Manual) Prolymphocyte # Reactive Lymphs # Total Abs Lymphocytes Monocytes # (Manual) Eosinophils # (Manual) Basophils # (Manual) Metamyelocytes # (Man) Myelocytes # (Manual) Promyelocytes # (Man) Blast Cells # (Man) Plasma Cell # (Manual) Other Cells # Nucleated RBCs # (Man) Hypersegmented Neuts Hyposegmented Neuts Hypogranular Neuts Large Granular Lymphs # Lrg Granular Lymphs Hairy Cells Smudge Cells Toxic Granulation Toxic Vacuolation Dohle Bodies Kristian Rods Platelet Estimate Hypogranular Platelets Clumped Platelets Giant Platelets Platelet Satelliting RBC Morphology Polychromasia Hypochromasia Present Poikilocytosis Basophilic Stippling Anisocytosis Microcytosis Macrocytosis Spherocytes Pappenheimer Bodies Sickle Cells Target Cells Tear Drop Cells Ovalocytes Stomatocytes Phoenix-Galva Bodies Echinocytes Acanthocytes (Spur) Rouleaux RBC Agglutinates Schistocytes RBC Morph Comment Sezary Cell Sodium 143 Potassium 3.8 Chloride 114 H Carbon Dioxide 23 Anion Gap 6.0 BUN 13 Creatinine 1.10 Est Cr Clr Drug Dosing 40.6 Est GFR ( Amer) 59.7 Est GFR (Non-Af Amer) 51.5 BUN/Creatinine Ratio 11.9 Glucose 92 POC Glucose Calcium 8.1 L Total Bilirubin 0.6 AST 22 ALT 15 Alkaline Phosphatase 63 Total Protein 6.1 L Albumin 3.0 L Globulin 3.1 Albumin/Globulin Ratio 1.0 Specimen Hemolysis Medications Administered Current Inpatient Medications Albuterol (Duoneb) 3 ml NEB Q4R [facility] Stop: 08/29/19 02:59 Last Admin: 08/02/19 15:13 Dose: 3 ml Documented by: Aspirin (Aspirin Chew) 81 mg PO DAILY [facility] Stop: 08/29/19 08:59 Last Admin: 08/02/19 09:19 Dose: Not Given Documented by: Buspirone HCl (Buspar) 15 mg PO TID [facility] Stop: 08/29/19 08:59 Last Admin: 08/02/19 13:50 Dose: Not Given Documented by: Heparin Sodium (Porcine) (Heparin Sodium (Porcine)) 5,000 units SQ Q12 [facility] Stop: 08/29/19 08:59 Last Admin: 08/02/19 09:19 Dose: Not Given Documented by: Methylprednisolone 40 mg/ (Syringe) 0.64 mls @ 1.5 mls/min IV DAILY [facility] Stop: 08/29/19 08:59 Last Admin: 08/02/19 07:31 Dose: 1.5 mls/min Documented by: Metronidazole (Flagyl) 500 mg in 100 mls @ 100 mls/hr IV Q8H [facility] Stop: 08/09/19 03:59 Last Infusion: 08/02/19 13:08 Dose: Infused Documented by: Cefepime HCl 2,000 mg/ Syringe 20 mls @ 5 mls/min IV Q12H [facility] Stop: 08/09/19 15:59 Last Admin: 08/02/19 04:19 Dose: 5 mls/min Documented by: Acetaminophen (Ofirmev) 65 mls @ 200 mls/hr IV Q8H PRN PRN Reason: Headache or Pain Stop: 08/29/19 09:59 Last Infusion: 08/02/19 13:50 Dose: Infused Documented by: Promethazine HCl 6.25 mg/ (Sodium Chloride) 50.25 mls @ 201 mls/hr IV Q6H PRN PRN Reason: Nausea And Vomiting Stop: 08/29/19 22:52 Last Infusion: 08/02/19 12:17 Dose: Infused Documented by: Vancomycin HCl 750 mg/ Sodium (Chloride) 265 mls @ 125 mls/hr IV Q16H [facility] Stop: 08/07/19 03:59 Last Infusion: 08/02/19 09:21 Dose: Infused Documented by: Lorazepam (Ativan) 0.5 mg in 1 mls @ 1 mls/min IV Q12 PRN PRN Reason: Anxiety/Agitation Stop: 08/31/19 11:44 Last Admin: 08/02/19 13:21 Dose: 1 mls/min Documented by: Potassium Chloride/Sodium Chloride (1/2 Nss + 20meq Kcl 1000ml) 20 meq in 1,000 mls @ 100 mls/hr IV .Q10H [facility] Stop: 08/02/19 20:29 Last Admin: 08/02/19 07:31 Dose: 100 mls/hr Documented by: Dextrose/Sodium Chloride (D5w And 1/2nss) 1,000 mls @ 80 mls/hr IV .[id number] [facility] Stop: 09/01/19 14:59 Lorazepam (Ativan) 0.5 mg PO BID PRN PRN Reason: Anxiety Stop: 08/29/19 01:03 Magnesium Hydroxide (Milk Of Magnesia) 30 ml PO DAILY PRN PRN Reason: Constipation Stop: 08/29/19 01:03 Metoprolol Tartrate (Lopressor) 25 mg PO BID [facility] Stop: 08/29/19 08:59 Last Admin: 08/02/19 09:20 Dose: Not Given Documented by: Miscellaneous Information (Consult) 1 ea N/A UD PRN PRN Reason: Consult Stop: 08/29/19 03:40 Miscellaneous Information (Cefepime Consult Active) 1 ea N/A UD PRN PRN Reason: Consult Stop: 08/29/19 04:07 Morphine Sulfate (Morphine Sulfate) 2 mg IV Q4H PRN PRN Reason: Pain Stop: 08/15/19 11:44 Last Admin: 08/02/19 09:09 Dose: 2 mg Documented by: Morphine Sulfate (Morphine Sulfate) 4 mg IV Q4H PRN PRN Reason: Severe Pain Stop: 08/15/19 11:44 Last Admin: 08/02/19 04:45 Dose: 4 mg Documented by: Oxycodone HCl (Roxicodone Immediate Rel) 5 mg PO Q6H PRN PRN Reason: pain 5-10 Stop: 08/13/19 01:03 Pantoprazole Sodium (Protonix) 40 mg PO BID [facility] Stop: 08/29/19 08:59 Last Admin: 08/02/19 09:20 Dose: Not Given Documented by: Ranitidine HCl (Zantac) 150 mg PO BID [facility] Stop: 08/29/19 08:59 Last Admin: 08/02/19 09:20 Dose: Not Given Documented by: Sennosides (Senokot) 8.8 mg PO BID PRN PRN Reason: Constipation Stop: 08/30/19 07:32 Venlafaxine HCl (Effexor Extended Release) 75 mg PO DAILY [facility] Stop: 08/29/19 08:59 Last Admin: 08/02/19 09:19 Dose: Not Given Documented by: PG Care Time/CCT Total # of Minutes Spent Total Time Spent with Patient: Total time spent is greater than 50% in coordination of care (as documented) at patient's floor/unit and/or counseling patient: (1) Respiratory failure Chronicity: acute Respiratory failure complication: hypoxia and hypercapnia Qualified Code(s): J96.01 - Acute respiratory failure with hypoxia; J96.02 - Acute respiratory failure with hypercapnia (2) Left lower lobe pneumonia Pneumonia type: due to unspecified organism Qualified Code(s): J18.1 - Lobar pneumonia, unspecified organism
[2019-08-02] MEDS: D5W AND 1/2NSS 1,000 ML IV SCH (17:32)
[2019-08-02] MEDS ORDERED: VANCOMYCIN TROUGH ONE (21:30)
[2019-08-03] MEDS: MoRPHine SULFATE 4 MG/ML 1 ML CARP\\VIAL IV PRN ×5 (01:11→19:34)
[2019-08-03] MEDS: LORazepam 0.5 MG/1 ML VIAL IV PRN ×3 (02:09→23:58)
[2019-08-03] MEDS: ALBUT/IPRATROP 3MG/0.5MG NEB 3 ML VIAL NEB SCH ×2 (03:02→07:27)
[2019-08-03] MEDS: metroNIDAZOLE 500 MG/100 ML BAG IV SCH ×3 (04:23→19:35)
[2019-08-03] MEDS: CEFEPIME 2,000 MG in SYRINGE 7.5 ML IV SCH ×2 (04:23→15:56)
[2019-08-03] MEDS: methylPREDNISolone 40 MG in SYRINGE 0 ML IV SCH (08:34)
[2019-08-03] MEDS: D5W AND 1/2NSS 1,000 ML IV SCH ×2 (08:40→15:56)
[2019-08-03] MEDS: HEPARIN SOD 5,000 UNIT/0.5 ML VIAL SQ SCH ×2 (08:58→21:28)
[2019-08-03] MEDS: ASPIRIN 81 MG CHEW PO SCH (08:58)
[2019-08-03] MEDS: METOPROLOL TARTRATE 25 MG TAB PO SCH ×2 (08:58→21:29)
[2019-08-03] MEDS: BusPIRone 15 MG TAB PO SCH ×3 (08:58→21:29)
[2019-08-03] MEDS: VENLAFAXINE HCL XR 37.5 MG CAPXR PO SCH (08:58)
[2019-08-03] MEDS: PANTOprazole 40 MG TAB PO SCH ×2 (08:59→21:51)
[2019-08-03] MEDS ORDERED: HydrALAZINE HCL 20 MG/ML VIAL IV PRN (09:02)
--- NOTE | 2019-08-03 09:43 | Pharmacy Report ---
Pharmacy Abx Dose Short Note - Date of Service August 03, 2019 - Assessment & Plan Assessment 69 year old F receiving vancomycin, cefepime, and metronidazole for treatment of Left lower lobe pneumonia likely due to aspiration and colitis. Day # 5 of antimicrobial therapy. Plan Laboratory Tests 08/02/19 21:44 Vancomycin Trough 21.3 Vancomycin * Trough level of 21.3 mcg/mL is slightly supratherapeutic * Change to 750 mg IV every 18 hours * Goal trough level for pneumonia : 15 to 20 mcg/mL * Trough or random level ordered for: 08/04/19 @ 0930 Cefepime: * Continue 2gm IV q12h. Pharmacy will continue to follow and will adjust dose/frequency as necessary. Thank you.
--- NOTE | 2019-08-03 11:56 | Surgery Progress Note ---
Date of Service August 03, 2019 Assessment & Plan (1) Dilatation of colon: No evidence of peritonitis White blood cell count normal H&H stable We wish to consider starting sips of clear liquids today Subjective Mild discomfort of the upper abdomen Denies nausea and vomiting Passing flatus but has not had bowel movement Physical Exam Constitutional: no acute distress Gastrointestinal (Abdomen): Inspection/Auscultation: + abdomen distended (Mild) Percussion/Palpation: + abdomen tender (Mild right-sided) and abdomen soft Results & Data Vital Signs (Past 12 Hours) Vital Signs Temp Pulse Resp BP Pulse Ox 08/03/19 09:25 36.4 C L 110 H 20 182/95 H 92 08/03/19 07:27 74 16 92 08/03/19 03:13 36.4 C L 108 H 20 162/92 H 92 08/03/19 03:02 72 16 93 Laboratory Results 08/03/19 08/03/19 08/02/19 Range/Units 11:29 07:39 21:44 POC Glucose 154 H 114 H (70-99) Vancomycin Trough 21.3 (See Comment) mcg/ml 08/02/19 08/02/19 Range/Units 16:35 11:27 POC Glucose 142 H 99 (70-99) Vancomycin Trough (See Comment) mcg/ml
[2019-08-03] MEDS: PROMETHAZINE HCL 6.25 MG in SODIUM CHLORIDE 0.9% 50 ML IV PRN (12:00)
--- NOTE | 2019-08-03 15:21 | Hospitalist Progress Note ---
Date of Service August 03, 2019 Assessment & Plan (1) Respiratory failure: Acute and chronic respiratory failure acute due to pneumonia, aspiration breathing well via stoma no increased distress, no increased oxygen requirements (2) Left lower lobe pneumonia: due to aspiration, evidence that food is getting into her trachea had an episode on 08/01 and 08/02 of coughing up recently swallowed food will need to determine if she has a fistula likely a barium swallow would be good first step in identifying connection, however, patient is refusing this continue Cefepime, Vanco, Flagyl WBC 10k when last checked (was 30k on admission), refused labs this AM no growth on blood or sputum cultures (3) IZABEL (acute kidney injury): present on arrival treated with IV fluids, likely prerenal and related to pneumonia improved to 1.0 when last checked refused labs today (4) COPD (chronic obstructive pulmonary disease): no wheezing on exam, no signs of distress (5) Dilatation of colon: likely colitis continue Cefepime and Flagyl WBC 10k, lactate normal surgery following, she can eat from their perspective (6) Laryngeal cancer: s/p laryngectomy, there should be no connection between stoma and oral cavity however, she is coughing up chocolate pudding and coffee, witness on 08/01 and 08/02 she and her sister say that she has a speaking valve that needs exchanged by Dr. Chandra called his office number today, not on this weekend, patient only wants Dr. Chandra will need to call office tomorrow AM during business hours to speak with him about coming in to evaluate patient refuses further work up, refuses to take PO medications until seen by Dr. Chandra (7) Tracheostomy present: now breathing comfortably via stoma, trach removed see above about having Dr. Chandra come to hospital (8) Tachycardia: patient typically on Lopressor 25mg BID, refusing to take HR in the 100-120 range at times, likely in part due to albuterol treatments place on monitor so that Lopressor 5mg IV q6 scheduled can be started until she agrees to take pills (9) Anxiety: (10) GERD (gastroesophageal reflux disease): Palliative care following, working on speaking with family about code status, goals of care Subjective talked with patient today about her speech valve she wrote down that it needs adjusted or exchanged by Dr. Chandra I called the office number for Dr. Chandra, he is not director of pulmonary unit, there is a plastic surgeon director of pulmonary unit, did not speak with them, patient only wants Dr. Chandra she is hoping that he can see in the hospital and adjust her valve discussed that she needs to remain NPO with her possible connection between trachea and esophagus she refused labs this morning, refusing to take medications even when asked to do so by myself and RN placed her on monitor so that we can at least use Lopressor IV long talk with patient's sister Mei who lives near [place] and she is an OR nurse, ronel discussed the fact that she coughed up food through stoma, she also mentioned that she was worried about a fistula discussed that I would want to get barium swallow, patient reluctant to do so until seen by Dr. Chandra discussed with sister that she will continue to get pneumonia until we can determine the connection sister concerned about patient's stomach, she says it has been distended for weeks explained that on CT there was some dilation of her colon, nothing else spoke with Dr. Sun with surgery, he is okay with her eating as far as the abdomen goes Review of Systems Review of Systems: All systems reviewed & are unremarkable except as noted in HPI & below Constitutional: + fatigue and + weakness; no fever Respiratory: + cough, + dyspnea and + sputum production Cardiovascular: no chest pain, no syncope and no edema Gastrointestinal: + abdominal pain; no nausea, no vomiting, no constipation and no diarrhea/loose stools Physical Exam Constitutional: + thin, + cachectic and + frail appearing; no acute distress Eyes: PERRL, conjunctivae normal, anicteric sclerae ENMT: external ear and nose normal, oropharynx normal Neck: trachea midline; + abnormal visual inspection (open stoma connected to trachea, thick secretions periodically) Respiratory: normal respiratory effort, lungs clear to auscultation Auscultation: + crackles (left lower lobe) Cardiovascular: Rate/Rhythm: regular rate and + tachycardic Heart Sounds: normal S1 and normal S2; no murmur Vessels: no JVD Extremities: normal capillary refill; no edema Gastrointestinal (Abdomen): normal bowel sounds, soft, nontender, no hepa tosplenomegaly Musculoskeletal: no cyanosis or clubbing, extremities motor strength 5/5 Skin: no rashes, warm and dry Neurologic: patellar DTR's 2+ bilat, sensation intact and PERRL, EOMI, accommodation nl, no face palsy, no dysarthria Psychiatric: A+Ox3, euthymic affect Lymphatic: no cervical or axillary lymphadenopathy Results & Data Vital Signs (Past 12 Hours) Vital Signs Temp Pulse Resp BP Pulse Ox 08/03/19 12:50 136/103 H 08/03/19 09:25 36.4 C L 110 H 20 182/95 H 92 08/03/19 07:27 74 16 92 Medications Administered Current Inpatient Medications Albuterol (Duoneb) 3 ml NEB Q4R PRN PRN Reason: Shortness Of Breath Or Wheezing Stop: 08/29/19 02:59 Last Admin: 08/03/19 21:31 Dose: 3 ml Documented by: Aspirin (Aspirin Chew) 81 mg PO DAILY [facility] Stop: 08/29/19 08:59 Last Admin: 08/03/19 08:58 Dose: Not Given Documented by: Buspirone HCl (Buspar) 15 mg PO TID [facility] Stop: 08/29/19 08:59 Last Admin: 08/03/19 21:29 Dose: Not Given Documented by: Heparin Sodium (Porcine) (Heparin Sodium (Porcine)) 5,000 units SQ Q12 [facility] Stop: 08/29/19 08:59 Last Admin: 08/03/19 21:28 Dose: Not Given Documented by: Hydralazine HCl (Hydralazine Hcl) 10 mg IV Q6 PRN PRN Reason: Blood Pressure - High Stop: 09/02/19 09:01 Last Admin: 08/03/19 22:24 Dose: 10 mg Documented by: Methylprednisolone 40 mg/ (Syringe) 0.64 mls @ 1.5 mls/min IV DAILY [facility] Stop: 08/29/19 08:59 Last Admin: 08/03/19 08:34 Dose: 1.5 mls/min Documented by: Metronidazole (Flagyl) 500 mg in 100 mls @ 100 mls/hr IV Q8H [facility] Stop: 08/09/19 03:59 Last Infusion: 08/03/19 21:15 Dose: Infused Documented by: Cefepime HCl 2,000 mg/ Syringe 20 mls @ 5 mls/min IV Q12H [facility] Stop: 08/09/19 15:59 Last Admin: 08/03/19 15:56 Dose: 5 mls/min Documented by: Acetaminophen (Ofirmev) 65 mls @ 200 mls/hr IV Q8H PRN PRN Reason: Headache or Pain Stop: 08/29/19 09:59 Last Infusion: 08/03/19 17:48 Dose: Infused Documented by: Promethazine HCl 6.25 mg/ (Sodium Chloride) 50.25 mls @ 201 mls/hr IV Q6H PRN PRN Reason: Nausea And Vomiting Stop: 08/29/19 22:52 Last Infusion: 08/03/19 12:36 Dose: Infused Documented by: Lorazepam (Ativan) 0.5 mg in 1 mls @ 1 mls/min IV Q12 PRN PRN Reason: Anxiety/Agitation Stop: 08/31/19 11:44 Last Admin: 08/03/19 23:58 Dose: 1 mls/min Documented by: Dextrose/Sodium Chloride (D5w And 1/2nss) 1,000 mls @ 80 mls/hr IV .[id number] [facility] Stop: 09/01/19 14:59 Last Admin: 08/03/19 15:56 Dose: 80 mls/hr Documented by: Vancomycin HCl 750 mg/ Sodium (Chloride) 265 mls @ 125 mls/hr IV Q18H [facility] Stop: 08/07/19 03:59 Last Infusion: 08/03/19 18:11 Dose: Infused Documented by: Lorazepam (Ativan) 0.5 mg PO BID PRN PRN Reason: Anxiety Stop: 08/29/19 01:03 Magnesium Hydroxide (Milk Of Magnesia) 30 ml PO DAILY PRN PRN Reason: Constipation Stop: 08/29/19 01:03 Metoprolol Tartrate (Lopressor) 25 mg PO BID [facility] Stop: 08/29/19 08:59 Last Admin: 08/03/19 21:29 Dose: Not Given Documented by: Metoprolol Tartrate (Lopressor) 5 mg IV Q6 [facility] Stop: 09/02/19 17:59 Last Admin: 08/03/19 23:50 Dose: 5 mg Documented by: Miscellaneous Information (Consult) 1 ea N/A UD PRN PRN Reason: Consult Stop: 08/29/19 03:40 Miscellaneous Information (Cefepime Consult Active) 1 ea N/A UD PRN PRN Reason: Consult Stop: 08/29/19 04:07 Morphine Sulfate (Morphine Sulfate) 2 mg IV Q4H PRN PRN Reason: Pain Stop: 08/15/19 11:44 Last Admin: 08/02/19 09:09 Dose: 2 mg Documented by: Morphine Sulfate (Morphine Sulfate) 4 mg IV Q4H PRN PRN Reason: Severe Pain Stop: 08/15/19 11:44 Last Admin: 08/03/19 19:34 Dose: 4 mg Documented by: Oxycodone HCl (Roxicodone Immediate Rel) 5 mg PO Q6H PRN PRN Reason: pain 5-10 Stop: 08/13/19 01:03 Pantoprazole Sodium (Protonix) 40 mg PO BID [facility] Stop: 08/29/19 08:59 Last Admin: 08/03/19 21:51 Dose: Not Given Documented by: Ranitidine HCl (Zantac) 150 mg PO BID [facility] Stop: 08/29/19 08:59 Last Admin: 08/03/19 21:51 Dose: Not Given Documented by: Sennosides (Senokot) 8.8 mg PO BID PRN PRN Reason: Constipation Stop: 08/30/19 07:32 Venlafaxine HCl (Effexor Extended Release) 75 mg PO DAILY [facility] Stop: 08/29/19 08:59 Last Admin: 08/03/19 08:58 Dose: Not Given Documented by: PG Care Time/CCT Total # of Minutes Spent Total Time Spent with Patient: Total time spent is greater than 50% in coordination of care (as documented) at patient's floor/unit and/or counseling p atient: (1) Respiratory failure Chronicity: acute Respiratory failure complication: hypoxia and hypercapnia Qualified Code(s): J96.01 - Acute respiratory failure with hypoxia; J96.02 - Acute respiratory failure with hypercapnia (2) Left lower lobe pneumonia Pneumonia type: due to unspecified organism Qualified Code(s): J18.1 - Lobar pneumonia, unspecified organism
[2019-08-03] MEDS: VANCOMYCIN HCL 750 MG in SODIUM CHLORIDE 0.9% 250 ML IV SCH (15:56)
[2019-08-03] MEDS: METOPROLOL TARTRATE 1 MG/ML VIAL IV SCH ×2 (17:05→23:50)
[2019-08-03] MEDS: ACETAMINOPHEN 65 ML IV PRN (17:10)
[2019-08-03] MEDS: ALBUT/IPRATROP 3MG/0.5MG NEB 3 ML VIAL NEB PRN (21:31)
[2019-08-04] MEDS: LORazepam 0.5 MG/1 ML VIAL IV PRN ×2 (01:00→21:21)
[2019-08-04] MEDS: MoRPHine SULFATE 4 MG/ML 1 ML CARP\\VIAL IV PRN ×2 (02:09→09:36)
[2019-08-04] MEDS: ALBUT/IPRATROP 3MG/0.5MG NEB 3 ML VIAL NEB PRN ×4 (03:35→21:35)
[2019-08-04] MEDS: D5W AND 1/2NSS 1,000 ML IV SCH ×2 (04:08→16:48)
[2019-08-04] MEDS: CEFEPIME 2,000 MG in SYRINGE 7.5 ML IV SCH ×2 (04:10→15:41)
[2019-08-04] MEDS: metroNIDAZOLE 500 MG/100 ML BAG IV SCH ×3 (04:10→20:02)
[2019-08-04] MEDS: ACETAMINOPHEN 65 ML IV PRN (05:27)
[2019-08-04] MEDS: METOPROLOL TARTRATE 1 MG/ML VIAL IV SCH ×3 (05:53→17:57)
[2019-08-04] MEDS: methylPREDNISolone 40 MG in SYRINGE 0 ML IV SCH (08:14)
[2019-08-04] MEDS: BusPIRone 15 MG TAB PO SCH ×3 (08:14→18:40)
[2019-08-04] MEDS: ASPIRIN 81 MG CHEW PO SCH (08:14)
[2019-08-04] MEDS: VENLAFAXINE HCL XR 37.5 MG CAPXR PO SCH (08:14)
[2019-08-04] MEDS: METOPROLOL TARTRATE 25 MG TAB PO SCH ×2 (08:15→18:40)
[2019-08-04] MEDS: PANTOprazole 40 MG TAB PO SCH ×2 (08:15→18:40)
[2019-08-04] MEDS: HEPARIN SOD 5,000 UNIT/0.5 ML VIAL SQ SCH ×2 (08:15→18:41)
--- NOTE | 2019-08-04 08:30 | Surgery Progress Note ---
Date of Service August 04, 2019 Assessment & Plan (1) Dilatation of colon: no plan for abdominal/ colon surgical intervention depending on progress- may need Miralax, Min oil and /or senna syrup for bowel function leave this to med/ GI teams for follow up does not need Gen Surg f/u from my standpt Results & Data Vital Signs (Past 12 Hours) Vital Signs Temp Pulse Pulse Pulse Resp BP BP 08/04/19 07:41 36.2 C L 64 16 165/73 H 08/04/19 04:00 36.9 C 89 16 08/04/19 03:35 79 16 08/03/19 23:50 96 H 161/93 H 08/03/19 23:44 96 H 08/03/19 23:11 80 08/03/19 22:20 37.0 C 79 16 08/03/19 21:42 86 16 08/03/19 20:33 36.7 C 83 16 BP Pulse Ox 08/04/19 07:41 97 08/04/19 04:00 162/99 H 96 08/04/19 03:35 93 08/03/19 23:50 08/03/19 23:44 161/93 H 08/03/19 23:11 08/03/19 22:20 175/100 H 92 08/03/19 21:42 94 08/03/19 20:33 183/100 H 90 PG Care Time/CCT Total # of Minutes Spent Total Time Spent with Patient: Total time spent is greater than 50% in coordination of care (as documented) at patient's floor/unit and/or counseling patient:
[2019-08-04] MEDS ORDERED: VANCOMYCIN TROUGH ONE (09:30)
[2019-08-04 10:43] LABS: Est GFR (African American) 58.5; Est GFR (Non-African American) 50.4
--- NOTE | 2019-08-04 10:58 | Pharmacy Report ---
Pharmacy Abx Dose Short Note - Date of Service August 04, 2019 - Assessment & Plan Assessment 69 year old F receiving vancomycin, cefepime, and metronidazole for treatment of Left lower lobe pneumonia likely due to aspiration and colitis. Day # 6 of antimicrobial therapy. Plan Vancomycin * Trough level came back therapeutic at 18.5 mcg/ml (goal 15-20 mcg/ml for pneumonia) * Previous level at Q16 hr dosing was elevated at ~21 mcg/ml therefore interval extended to Q18 hrs. Level drawn slightly early since recent dosing change, however feel that level likely ~15-20 mcg/ml at this dosing * Concern for aspiration, positive MRSA swab therefore utilizing vancomycin. Would recommend rechecking trough in next 2 days or sooner if renal function changes * Sputum culture now with strep pneumoniae - however sensitivities not able to be run per lab result Cefepime * 2 gm iv q 12 hrs - continue same; appropriate for CrCl 30-60 ml/min Pharmacy will continue to follow and will adjust dose/frequency as necessary. Thank you.
[2019-08-04] MEDS: VANCOMYCIN HCL 750 MG in SODIUM CHLORIDE 0.9% 250 ML IV SCH (11:03)
[2019-08-04] MEDS: PROMETHAZINE HCL 6.25 MG in SODIUM CHLORIDE 0.9% 50 ML IV PRN (12:02)
[2019-08-04] MEDS: FAMOTIDINE 20 MG in SYRINGE 3 ML IV SCH ×2 (13:41→20:02)
[2019-08-04] MEDS: MoRPHine SULFATE 2 MG/ML CARP IV PRN (16:48)
--- NOTE | 2019-08-04 19:32 | Hospitalist Progress Note ---
Date of Service August 04, 2019 Assessment & Plan (1) Left lower lobe pneumonia: possible aspiration vs community acquired. continue Cefepime, Vanco, Flagyl (MRSA screen is +, at risk of gram negatives, flagyl present for anaerobe coverage if aspiration etiology). day #5-6 of antibiotics. blood/sputum cx's negative. overall clinically stable/improved. cont supportive care. plan 7- day course of antibiotics in total. (2) Respiratory failure: Acute on chronic respiratory failure Acute component resolving Was 2nd to pneumonia +/- COPD exacerbation (3) IZABEL (acute kidney injury): resolved peak Cr 1.6 now 1.1 (4) COPD (chronic obstructive pulmonary disease): remains on IV solumedrol daily takes 10mg of prednisone daily - for COPD maintenance?? cont nebs, etc. if there was exacerbation it is resolved. (5) Dilatation of colon: likely colitis resolving surgery following; no Rx needed add H2 francine for epigastric pain (6) Laryngeal cancer: s/p laryngectomy for such many years ago there should be no connection between stoma and oral cavity however, she coughed up chocolate pudding and coffee witnessed by staff on 08/01 and 08/02 Dr Chandra has been contacted and he is aware of consultation voice device needs to be exchanged uncertain if this is the issue causing food to exude from stoma TE fistula? NPO in meantime IV fluids await Dr Chandra's consult and recs (7) Tracheostomy present: only has stoma has not had trach in years see discussion above (8) Anxiety: cont home meds (9) GERD (gastroesophageal reflux disease): IV H2 francine while NPO (10) Anemia: check b12, folate, ferritin, iron studies am (11) DVT prophylaxis: cont heparin SC PT/OT evals Subjective patient playing video games on her phone upon my arrival. with covering her stoma on her anterior neck she is able to speak/phonate. she believes that her voice device if ready to be exchanged. she has Dr Chandra change it about every 2 months in the office. sometimes "it will leak" when it is past the date of exchange. she thinks the food that was leaking from the stoma is due to such. denies any significant cough or dyspnea. does c/o mild epigastric pain - present pre-hospital for weeks/months. Review of Systems Constitutional: no fever Respiratory: no cough and no dyspnea minimal sputum via stoma present Cardiovascular: no chest pain Gastrointestinal: no nausea and no vomiting Physical Exam Constitutional: + thin; + not well developed, + not well nourished and no acute distress ENMT: Mouth: no oral mucosal abnormality and oral mucous membranes not dry Neck: stoma present; with occlusion of such she can phonate/speak; no secretions present; no skin breakdown Respiratory: Auscultation: + diminished lung sounds (bases and expiratory phase) and + wheezes (occasional) Cardiovascular: Rate/Rhythm: regular rate and regular rhythm Heart Sounds: normal S1 and normal S2; no murmur Vessels: posterior tibial pulses present and dorsalis pedis pulses present; no JVD Extremities: no edema Gastrointestinal (Abdomen): Inspection/Auscultation: + abdomen distended (mild) and normal bowel sounds Percussion/Palpation: + abdomen tender (epigastric region) and abdomen soft; no hepatosplenomegaly Psychiatric: A+Ox3, euthymic affect Results & Data Vital Signs (Past 12 Hours) Vital Signs Temp Pulse Pulse Resp BP BP Pulse Ox 08/04/19 19:23 36.6 C 68 20 158/79 H 97 08/04/19 18:05 71 153/82 H 08/04/19 16:47 37.1 C 80 16 168/87 H 98 08/04/19 16:17 78 08/04/19 15:32 73 18 96 08/04/19 12:22 67 17 97 08/04/19 12:06 77 08/04/19 11:17 37 C 79 16 153/89 H 96 08/04/19 07:41 36.2 C L 64 16 165/73 H 97 Laboratory Results Laboratory Results - last 24 hr 08/04/19 08/04/19 08/04/19 07:57 09:55 09:55 Creatinine 1.12 Est Cr Clr Drug Dosing 36.0 Est GFR ( Amer) 58.5 Est GFR (Non-Af Amer) 50.4 POC Glucose 121 H Vancomycin Trough 18.5 08/04/19 08/04/19 16:37 20:29 Creatinine Est Cr Clr Drug Dosing Est GFR ( Amer) Est GFR (Non-Af Amer) POC Glucose 138 H 129 H Vancomycin Trough PG Care Time/CCT Total # of Minutes Spent Total Time Spent with Patient: Total time spent is greater than 50% in coordination of care (as documented) at patient's floor/unit and/or counseling patient: (1) Respiratory failure Chronicity: acute Respiratory failure complication: hypoxia and hypercapnia Qualified Code(s): J96.01 - Acute respiratory failure with hypoxia; J96.02 - Acute respiratory failure with hypercapnia (2) Left lower lobe pneumonia Pneumonia type: due to unspecified organism Qualified Code(s): J18.1 - Lobar pneumonia, unspecified organism (3) COPD (chronic obstructive pulmonary disease) COPD type: unspecified COPD Qualified Code(s): J44.9 - Chronic obstructive pulmonary disease, unspecified (4) GERD (gastroesophageal reflux disease) Esophagitis presence: esophagitis presence not specified Qualified Code(s): K21.9 - Gastro-esophageal reflux disease without esophagitis (5) Anemia Anemia type: other cause Other causes of anemia: other cause, not classified Qualified Code(s): D64.89 - Other specified anemias
[2019-08-05] MEDS: METOPROLOL TARTRATE 1 MG/ML VIAL IV SCH ×5 (00:56→23:36)
[2019-08-05] MEDS: D5W AND 1/2NSS 1,000 ML IV SCH (01:05)
[2019-08-05] MEDS: MoRPHine SULFATE 4 MG/ML 1 ML CARP\\VIAL IV PRN ×2 (01:14→21:59)
[2019-08-05] MEDS: CEFEPIME 2,000 MG in SYRINGE 7.5 ML IV SCH ×2 (04:18→15:41)
[2019-08-05] MEDS: VANCOMYCIN HCL 750 MG in SODIUM CHLORIDE 0.9% 250 ML IV SCH ×2 (04:20→21:44)
[2019-08-05] MEDS: metroNIDAZOLE 500 MG/100 ML BAG IV SCH ×3 (04:30→20:42)
[2019-08-05] MEDS: ALBUT/IPRATROP 3MG/0.5MG NEB 3 ML VIAL NEB PRN ×3 (04:45→19:14)
[2019-08-05] MEDS: MoRPHine SULFATE 2 MG/ML CARP IV PRN ×2 (05:55→19:23)
[2019-08-05 07:17] LABS: Hematocrit (blood only) 34.5 % (37-47); Hemoglobin 10.1 g/dL (12.0-16.0); Mean Corpuscular Hemoglobin 21.3 pg (25-34); Mean Corpuscular Hgb Conc 29.3 g/dL (32-36); Mean Corpuscular Volume 72.8 fL (80-100); Mean Platelet Volume 9.2 fL (7.4-10.4); Platelet Count 190 K/uL (130-400); RDW Coefficient of Variation 17.6 % (11.5-14.5); Red Blood Count 4.74 M/uL (4.2-5.4); White Blood Count 12.26 K/uL (4.8-10.8)
[2019-08-05 07:52] LABS: Calcium 8.5 mg/dl (8.5-10.1); Creatinine Clr Calc Pharmacy 39.6 ml/min; Est GFR (African American) 65.5; Est GFR (Non-African American) 56.5; Folate (Folic Acid) 14.08 ng/ml (>5.38); Potassium 2.7 mmol/L (3.5-5.1)
[2019-08-05 07:56] LABS: Ferritin 47.4 ng/ml (8-388)
[2019-08-05] MEDS: VENLAFAXINE HCL XR 37.5 MG CAPXR PO SCH (08:37)
[2019-08-05] MEDS: BusPIRone 15 MG TAB PO SCH ×3 (08:37→19:22)
[2019-08-05] MEDS: ASPIRIN 81 MG CHEW PO SCH (08:37)
[2019-08-05] MEDS: HEPARIN SOD 5,000 UNIT/0.5 ML VIAL SQ SCH ×2 (08:37→19:22)
[2019-08-05] MEDS: METOPROLOL TARTRATE 25 MG TAB PO SCH ×2 (08:38→19:22)
[2019-08-05] MEDS: PANTOprazole 40 MG TAB PO SCH ×2 (08:38→19:22)
[2019-08-05] MEDS: PROMETHAZINE HCL 6.25 MG in SODIUM CHLORIDE 0.9% 50 ML IV PRN (08:46)
[2019-08-05] MEDS: FAMOTIDINE 20 MG in SYRINGE 3 ML IV SCH ×2 (08:46→20:47)
[2019-08-05] MEDS: methylPREDNISolone 40 MG in SYRINGE 0 ML IV SCH (08:47)
[2019-08-05] MEDS: POTASSIUM CHLORIDE / WTR 10 MEQ/100 ML PLCT IV SCH ×2 (09:21→10:43)
[2019-08-05] MEDS ORDERED: MICONAZOLE NITRATE POWDER 43 GM EXT PRN (09:30)
[2019-08-05] MEDS: LORazepam 0.5 MG/1 ML VIAL IV PRN (14:28)
[2019-08-05] MEDS: ACETAMINOPHEN 65 ML IV PRN (14:30)
--- NOTE | 2019-08-05 14:37 | Consultation Report ---
DATE OF CONSULTATION: 08/05/2019 CHIEF COMPLAINT: Aspiration through her tracheoesophageal puncture site. In brief summary, and I will refer you to all the hospital reports for the comprehensive details, Yane is a 69-year-old woman I have known for a long time, who has a history of an advanced laryngeal carcinoma treated with a total laryngectomy. Many years ago, she had a TE puncture placed with a [employer] voice prosthesis inserted. This provides a seal, so that swallowed foods in the esophagus do not leak into the trachea, but does provide a one-way valve for her to maintain some speech. I see her in the office roughly every 2-3 months to change out her voice prosthesis as it may be needed. Recently, she began to have swallowed food stuff such as coffee immediately coming from her tracheal stoma when swallowing and so I was asked to see her. On chairside exam, she is pleasant, comfortable, in no distress but the visual infection of her laryngectomy stoma shows no visible valve within the TE puncture site. The TE puncture is patent from the posterior wall of the trachea to the esophagus. With the patient's consent, I placed a new Provox 6 mm speaking valve and then I tested that with chairside swallow of some water and I did not see any immediate leaking. I feel it would be safe for her to cautiously resume an oral diet and just monitor for any new signs of leakage from the [employer] valve. PLAN: My suspicion is that the previously placed valve was displaced into the esophagus and she swallowed that. I am confident it is not present in her tracheobronchial tree. This valve is approximately 10-12 mm in diameter at its maximum diameter, its soft medical grade silicone and I would expect that this would pass without any risk of obstruction. Certainly if she develops any abdominal pain, distention or rebound and that should be reinvestigated promptly, but I think the risk of that is exceedingly low. Thank you very much for involving me in her care. I will anticipate continued outpatient visits per normal routine going in the future.
--- NOTE | 2019-08-05 15:48 | Hospitalist Progress Note ---
Date of Service August 05, 2019 Assessment & Plan (1) Left lower lobe pneumonia: possible aspiration vs community acquired. continue Cefepime, Vanco, Flagyl (MRSA screen is +, at risk of gram negatives, flagyl present for anaerobe coverage if aspiration etiology) until tomorrow AM then stop abx. tomorrow AM we are entering day 7-8 of antibiotics. blood/sputum cx's negative. overall clinically stable/improved. cont supportive care. (2) Respiratory failure: Acute on chronic respiratory failure Acute component resolving Was 2nd to pneumonia +/- COPD exacerbation Stopping abx tonight/in am Wean steroids She cannot tell me why she takes chronic prednisone - will review allscripts records (3) IZABEL (acute kidney injury): resolved peak Cr 1.6 now 1.1 (4) COPD (chronic obstructive pulmonary disease): remains on IV solumedrol daily takes 10mg of prednisone daily - for COPD maintenance?? stop IV solumedrol once able to take PO prednisone then wean prednisone over another 5-6 days back to usual daily dose of 10mg cont nebs, etc. (5) Dilatation of colon: likely colitis per GI and gen surg resolving surgery following; no Rx needed resume diet and advance mild abdominal discomfort is likely from the colitis (6) Laryngeal cancer: s/p laryngectomy for such many years ago by Dr Chandra has voice valve (Provox) that is changed every 2-3 months with proper fitting it seals a tiny connection between the trachea and esophagus several days ago food substances exuded from her tracheal stoma Dr Chandra today discovered that the valve was missing it likely became dislodged and fell into the stomach it should pass w/o difficulty he placed a new Provox valve following such and following bedside challenge with water he did not see anything exude from the stoma full liquids diet restarted then advanced later in day to be complete will obtain barium swallow tomorrow - with valve in place - to ensure no other TE fistula or leaking is present appreciate Dr Chandra's consult & assistance (7) Tracheostomy present: only has stoma has not had trach in years had trach temporarily earlier this stay; now discontinued see discussion above (8) Anxiety: cont home meds (9) GERD (gastroesophageal reflux disease): resume normal chronic meds (10) Anemia: b12 is low-normal -- will supplement iron studies c/w iron deficiency -- will supplement recently there was concern of GI bleeding (had had melena by report) however stool was recently heme negative seen by GI this admission - endoscopic eval deferred CBC in am for stability supplement FE (11) DVT prophylaxis: cont heparin SC PT/OT evals back to SNF - perhaps tomorrow updated sister EXTENSIVELY by phone on 08/05 -- numerous questions answered Subjective Dr Chandra came and consulted today - has known Ms Maria for many years. He examined her "TE Puncture" and stoma -- her Provox speaking valve was NOT found during the exam. He believes that at some point it was dislodged and she likely swallowed it into the esophagus and down into the stomach. It is silicon - not metal - and poses next to no risk to the bowels. It is <1cm in size. He placed a new Provox valve. Bedside swallow with water showed no leaking of water thru the stoma with the valve in place. He confirmed there is a very tiny connection - maybe 3mm in size - between the trachea and esophagus but it is sealed when the valve is in place. Following placement of the Provox she was allowed to take diet. She did fine with such and "looked forward to eating mashed potatoes soon." Minimal abd pain reported to me during the visit Minimal secretions. Mild cough. No dyspnea. Review of Systems Constitutional: no fever Respiratory: no dyspnea Cardiovascular: no chest pain Gastrointestinal: no nausea, no vomiting and no diarrhea/loose stools Physical Exam Constitutional: + thin; + not well developed, + not well nourished and no acute distress ENMT: Mouth: no oral mucosal abnormality and oral mucous membranes not dry anterior neck with small stoma in place; no secretions Respiratory: Auscultation: + diminished lung sounds (bases and expiratory phase) and + wheezes (occasional) Cardiovascular: Rate/Rhythm: regular rate and regular rhythm Heart Sounds: normal S1 and normal S2; no murmur Vessels: posterior tibial pulses present and dorsalis pedis pulses present; no JVD Extremities: no edema Gastrointestinal (Abdomen): Inspection/Auscultation: normal bowel sounds; abdomen not distended Percussion/Palpation: + abdomen tender (epigastric region - mild again) and abdomen soft; no hepatosplenomegaly Psychiatric: A+Ox3, euthymic affect Results & Data Vital Signs (Past 12 Hours) Vital Signs Temp Pulse Pulse Resp BP BP Pulse Ox 08/05/19 13:18 08/05/19 11:36 69 131/68 08/05/19 11:25 36.6 C 74 10 L 131/68 95 08/05/19 07:25 36.3 C L 70 158/79 H 97 08/05/19 05:56 70 136/77 08/05/19 05:54 70 136/77 08/05/19 04:45 70 20 100 08/05/19 04:07 36.4 C L 66 18 170/70 H 100 Pulse Ox 08/05/19 13:18 98 08/05/19 11:36 08/05/19 11:25 08/05/19 07:25 08/05/19 05:56 08/05/19 05:54 08/05/19 04:45 08/05/19 04:07 PG Care Time/CCT Total # of Minutes Spent Total Time Spent with Patient: Total time spent is greater than 50% in coordination of care (as documented) at patient's floor/unit and/or counseling patient: (1) Anemia Anemia type: iron deficiency Iron deficiency anemia type: other iron deficiency Qualified Code(s): D50.8 - Other iron deficiency anemias (2) Respiratory failure Chronicity: acute Respiratory failure complication: hypoxia and hypercapnia Qualified Code(s): J96.01 - Acute respiratory failure with hypoxia; J96.02 - Acute respiratory failure with hypercapnia (3) COPD (chronic obstructive pulmonary disease) COPD type: unspecified COPD Qualified Code(s): J44.9 - Chronic obstructive pulmonary disease, unspecified (4) Left lower lobe pneumonia Pneumonia type: due to unspecified organism Qualified Code(s): J18.1 - Lobar pneumonia, unspecified organism (5) GERD (gastroesophageal reflux disease) Esophagitis presence: esophagitis presence not specified Qualified Code(s): K21.9 - Gastro-esophageal reflux disease without esophagitis
[2019-08-05] MEDS: POTASSIUM CHLORIDE 20 MEQ/15 ML UDC PO SCH (21:54)
[2019-08-05] MEDS: LORazepam 0.5 MG TAB PO PRN (22:04)
[2019-08-06] MEDS: ACETAMINOPHEN 65 ML IV PRN (00:38)
[2019-08-06] MEDS ORDERED: CALAMINE/PRAMOXINE LOTION 180 APPLN/180 ML BTL EXT PRN (01:14)
[2019-08-06] MEDS: ALBUT/IPRATROP 3MG/0.5MG NEB 3 ML VIAL NEB PRN ×2 (01:35→13:02)
[2019-08-06] MEDS: CEFEPIME 2,000 MG in SYRINGE 7.5 ML IV SCH (03:42)
[2019-08-06] MEDS: MoRPHine SULFATE 2 MG/ML CARP IV PRN (03:50)
[2019-08-06] MEDS: LORazepam 0.5 MG/1 ML VIAL IV PRN ×2 (03:52→15:33)
[2019-08-06] MEDS: metroNIDAZOLE 500 MG/100 ML BAG IV SCH (03:57)
[2019-08-06 06:56] LABS: Hematocrit (blood only) 33.3 % (37-47); Hemoglobin 9.7 g/dL (12.0-16.0); Mean Corpuscular Hemoglobin 21.5 pg (25-34); Mean Corpuscular Hgb Conc 29.1 g/dL (32-36); Mean Corpuscular Volume 73.7 fL (80-100); Mean Platelet Volume 9.7 fL (7.4-10.4); Platelet Count 189 K/uL (130-400); RDW Coefficient of Variation 17.7 % (11.5-14.5); RDW Standard Deviation 47.4 fL (36.4-46.3); Red Blood Count 4.52 M/uL (4.2-5.4); White Blood Count 10.24 K/uL (4.8-10.8)
[2019-08-06 07:34] LABS: BUN Creatinine Ratio 9.5 (10-20); Calcium 8.2 mg/dl (8.5-10.1); Creatinine Clr Calc Pharmacy 38.8 ml/min; Est GFR (African American) 61.1; Est GFR (Non-African American) 52.7; Magnesium 2.3 mg/dl (1.8-2.4); Potassium 3.1 mmol/L (3.5-5.1)
[2019-08-06] MEDS ORDERED: predniSONE 10 MG TABLET PO SCH (09:00)
--- NOTE | 2019-08-06 09:03 | Fluoroscopy Report ---
DOUBLE CONTRAST BARIUM ESOPHAGRAM CLINICAL HISTORY: History of laryngectomy. Aspiration pneumonia. 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 COMPARISON STUDY: Barium esophagram dated 09/08/2016. TECHNIQUE: A standard air contrast barium esophagram is initiated. Multiple spot images of the esopha neil are acquired in the upright position. The examination was discontinued due to aspiration. FINDINGS: A tracheostomy is noted and there are numerous surgical clips in the neck. The patient swal lowed barium without difficulty. Aspiration with cough was observed and the examination was discontin ued. The mucosal pattern is normal as visualized on the acquired images. Focal esophageal narrowing a t the level of C5 is unchanged from the 2016 examination. The gastroesophageal junction distended nor marina. Fluoroscopy time: 1 minute. Fluoroscopic images: 17 IMPRESSION: 1. The examination was discontinued due to aspiration with cough reflex. 2. Focal esophageal narrowing at the level of C5 is unchanged from previous. Electronically signed by: Kam Adames M.D. 08/06/2019 9:02 AM
[2019-08-06] MEDS: POTASSIUM CHLORIDE / WTR 10 MEQ/100 ML PLCT IV SCH ×2 (09:51→10:58)
[2019-08-06] MEDS: LORazepam 0.5 MG TAB PO PRN (10:57)
[2019-08-06] MEDS: OXYCODONE HCL IR 5 MG TAB (IMMEDIATE RELEASE) PO PRN (10:58)
[2019-08-06] MEDS ORDERED: DEXTROSE 50% 50 ML SYRINGE IV STA (11:57)
[2019-08-06] MEDS ORDERED: DEXTROSE 50% 50 ML SYRINGE IV PRN (12:00)
[2019-08-06] MEDS: BusPIRone 15 MG TAB PO SCH ×3 (13:28→19:34)
[2019-08-06] MEDS: HEPARIN SOD 5,000 UNIT/0.5 ML VIAL SQ SCH ×2 (13:28→19:34)
[2019-08-06] MEDS: POTASSIUM CHLORIDE 20 MEQ/15 ML UDC PO SCH ×2 (13:29→19:33)
[2019-08-06] MEDS: ASPIRIN 81 MG CHEW PO SCH (13:55)
[2019-08-06] MEDS: VENLAFAXINE HCL XR 37.5 MG CAPXR PO SCH (13:56)
[2019-08-06] MEDS: LANSOPRAZOLE 30 MG SOLTAB PO SCH ×2 (13:56→19:33)
[2019-08-06] MEDS: METOPROLOL TARTRATE 25 MG TAB PO SCH ×2 (13:56→19:32)
[2019-08-06] MEDS: D5W AND 1/2NSS + 20MEQ KCL 20 MEQ/1,000 ML BAG IV SCH (15:34)
--- NOTE | 2019-08-06 20:16 | Hospitalist Progress Note ---
Date of Service August 06, 2019 Assessment & Plan (1) Aspiration into lower respiratory tract: barium swallow today with aspiration very early on in the study. this suggests that the connection/fistula between the esophagus and trachea that should be sealed by the speaking valve is allowing swallowed contents to enter the trachea. I spoke with Dr Chandra again today - he will see Ms Maria in the am. His initial thought is that fluid is traveling around the valve and through the fistulous tract and then into the trachea causing aspiration. he may try a different sized speaking volume to correct this issue. keep NPO in meantime due to high risk of ongoing aspiration. restarted IV fluids. speech therapy is involved peripherally and will become involved if necessary. (2) Left lower lobe pneumonia: probable/suspected aspiration pneumonia. completed 7 days each of cefepime, Vanco, Flagyl (received vanco due to +MRSA). abx now d/c. blood/sputum cx's negative. overall clinically stable. (3) Respiratory failure: Acute on chronic respiratory failure Acute component resolved. Was 2nd to pneumonia +/- COPD exacerbation Stopped abx today Wean steroids She cannot tell me why she takes chronic prednisone - will review allscripts records (4) IZABEL (acute kidney injury): resolved peak Cr 1.6 BMPs stable since (5) COPD (chronic obstructive pulmonary disease): remains on IV solumedrol daily takes 10mg of prednisone daily - for COPD maintenance?? in light of NPO status will need to continue IV solumedrol in meantime will resume prednisone once taking PO again (6) Dilatation of colon: likely colitis per GI and gen surg resolving/resolved surgery had been following; no Rx needed resume diet when ok from a swallowing standpoint/aspiration standpoint (7) Laryngeal cancer: s/p laryngectomy for such many years ago by Dr Chandra has voice valve (Provox) that is changed every 2-3 months with proper fitting it seals a tiny connection between the trachea and esophagus several days ago food substances exuded from her tracheal stoma Dr Chandra on 08/05 discovered that the valve was missing it likely became dislodged and fell into the stomach it should pass w/o difficulty he placed a new Provox valve on 08/05 full liquids diet was restarted on 08/05 unfortunately had barium swallow today showing aspiration- see "aspiration into..." above for further information NPO until Dr Chandra sees tomorrow appreciate his help (8) Tracheostomy present: only has stoma has not had trach in years had trach temporarily earlier this stay; now discontinued see discussion above (9) Anxiety: cont home meds (ativan prn) (10) GERD (gastroesophageal reflux disease): cont PPI (11) Anemia: b12 is low-normal -- will supplement iron studies c/w iron deficiency -- will supplement recently there was concern of GI bleeding (had had melena by report) however stool was recently heme negative seen by GI this admission - endoscopic eval deferred CBC shows stable H/H supplement FE and B12 when able to take PO (12) DVT prophylaxis: cont heparin SC PT/OT updated sister EXTENSIVELY by phone on 08/05 and 08/06 - numerous questions answered Subjective patient went for barium swallow this am and early on in the study she had significant aspiration of the barium. upon return from the study she was made NPO. she then had hypoglycemia requiring amp of D50 with resolution of such. during my rounds she was crying, tearful, very upset about the results from this am and asked "what are we going to do?" I spoke again with Dr Chandra today - he will see patient in am and replace the speaking valve. he is concerned that the surgically created connection/fistula which is typically sealed by the speaking valve is not getting adequate seal. He may try a different valve. Review of Systems Constitutional: no fever Respiratory: + cough and + dyspnea on exertion Cardiovascular: no chest pain Gastrointestinal: no abdominal pain, no nausea and no vomiting Psychiatric: + anxiety Physical Exam Constitutional: + acute distress (crying/tearful ) and + thin; + not well developed and + not well nourished ENMT: Mouth: no oral mucosal abnormality and oral mucous membranes not dry anterior neck with stoma, patent; oxygen collar in place Respiratory: no respiratory distress Auscultation: + diminished lung sounds and + wheezes (occasional) Cardiovascular: Rate/Rhythm: regular rate and regular rhythm Heart Sounds: normal S1 and normal S2; no murmur Vessels: posterior tibial pulses present and dorsalis pedis pulses present; no JVD Extremities: no edema Gastrointestinal (Abdomen): normal bowel sounds, soft, nontender, no hepatosplenomegaly Psychiatric: Orientation: alert and oriented x 3 Affect: + anxious affect and + tearful affect Results & Data Vital Signs (Past 12 Hours) Vital Signs Temp Pulse Pulse Resp BP Pulse Ox 08/06/19 19:18 36.6 C 78 19 135/70 98 08/06/19 16:27 75 08/06/19 15:13 36.6 C 86 18 141/104 H 98 08/06/19 13:02 92 H 18 30 L Laboratory Results Laboratory Results - last 24 hr 08/05/19 08/06/19 08/06/19 19:56 06:21 06:21 WBC 10.24 RBC 4.52 Hgb 9.7 L Hct 33.3 L MCV 73.7 L MCH 21.5 L MCHC 29.1 L RDW Std Deviation 47.4 H RDW Coeff of Eleazar 17.7 H Plt Count 189 MPV 9.7 Sodium 144 Potassium 3.1 L Chloride 114 H Carbon Dioxide 25 Anion Gap 5.0 BUN 10 Creatinine 1.08 Est Cr Clr Drug Dosing 38.8 Est GFR ( Amer) 61.1 Est GFR (Non-Af Amer) 52.7 BUN/Creatinine Ratio 9.5 L Glucose 94 POC Glucose 130 H Calcium 8.2 L Magnesium 2.3 08/06/19 08/06/19 08/06/19 07:26 11:30 15:24 WBC RBC Hgb Hct MCV MCH MCHC RDW Std Deviation RDW Coeff of Eleazar Plt Count MPV Sodium Potassium Chloride Carbon Dioxide Anion Gap BUN Creatinine Est Cr Clr Drug Dosing Est GFR ( Amer) Est GFR (Non-Af Amer) BUN/Creatinine Ratio Glucose POC Glucose 89 56 L* 80 Calcium Magnesium 08/06/19 19:56 WBC RBC Hgb Hct MCV MCH MCHC RDW Std Deviation RDW Coeff of Eleazar Plt Count MPV Sodium Potassium Chloride Carbon Dioxide Anion Gap BUN Creatinine Est Cr Clr Drug Dosing Est GFR ( Amer) Est GFR (Non-Af Amer) BUN/Creatinine Ratio Glucose POC Glucose 101 H Calcium Magnesium PG Care Time/CCT Total # of Minutes Spent Total Time Spent with Patient: Total time spent is greater than 50% in coordina tion of care (as documented) at patient's floor/unit and/or counseling patient: (1) Anemia Anemia type: iron deficiency Iron deficiency anemia type: other iron deficiency Qualified Code(s): D50.8 - Other iron deficiency anemias (2) Respiratory failure Chronicity: acute Respiratory failure complication: hypoxia and hypercapnia Qualified Code(s): J96.01 - Acute respiratory failure with hypoxia; J96.02 - Acute respiratory failure with hypercapnia (3) COPD (chronic obstructive pulmonary disease) COPD type: unspecified COPD Qualified Code(s): J44.9 - Chronic obstructive pulmonary disease, unspecified (4) Left lower lobe pneumonia Pneumonia type: due to unspecified organism Qualified Code(s): J18.1 - Lobar pneumonia, unspecified organism (5) GERD (gastroesophageal reflux disease) Esophagitis presence: esophagitis presence not specified Qualified Code(s): K21.9 - Gastro-esophageal reflux disease without esophagitis (6) Aspiration into lower respiratory tract Encounter type: sequela Qualified Code(s): T17.800S - Unspecified foreign body in other parts of respiratory tract causing asphyxiation, sequela
[2019-08-06] MEDS ORDERED: ALBUT/IPRATROP 3MG/0.5MG NEB 3 ML VIAL NEB SCH (21:00)
[2019-08-06] MEDS ORDERED: methylPREDNISolone 30 MG in SYRINGE 0 ML IV SCH (21:15)
[2019-08-07] MEDS: ALBUT/IPRATROP 3MG/0.5MG NEB 3 ML VIAL NEB SCH ×4 (00:37→19:19)
[2019-08-07] MEDS: LORazepam 0.5 MG/1 ML VIAL IV PRN (04:08)
[2019-08-07] MEDS: ACETAMINOPHEN 65 ML IV PRN ×2 (04:08→19:57)
[2019-08-07] MEDS: PROMETHAZINE HCL 6.25 MG in SODIUM CHLORIDE 0.9% 50 ML IV PRN ×2 (05:02→20:48)
[2019-08-07] MEDS: D5W AND 1/2NSS + 20MEQ KCL 20 MEQ/1,000 ML BAG IV SCH ×2 (05:17→15:44)
[2019-08-07 08:07] LABS: BUN Creatinine Ratio 5.5 (10-20); Calcium 8.6 mg/dl (8.5-10.1); Creatinine Clr Calc Pharmacy 44.3 ml/min; Est GFR (African American) 71.3; Est GFR (Non-African American) 61.5
[2019-08-07] MEDS: ASPIRIN 81 MG CHEW PO SCH (08:37)
[2019-08-07] MEDS: BusPIRone 15 MG TAB PO SCH ×2 (08:37→14:03)
[2019-08-07] MEDS: POTASSIUM CHLORIDE 20 MEQ/15 ML UDC PO SCH (08:38)
[2019-08-07] MEDS: METOPROLOL TARTRATE 25 MG TAB PO SCH (08:38)
[2019-08-07] MEDS: HEPARIN SOD 5,000 UNIT/0.5 ML VIAL SQ SCH ×2 (08:38→20:47)
[2019-08-07] MEDS: LANSOPRAZOLE 30 MG SOLTAB PO SCH (08:38)
[2019-08-07] MEDS: VENLAFAXINE HCL XR 37.5 MG CAPXR PO SCH (08:38)
[2019-08-07] MEDS: LORazepam 0.5 MG TAB PO PRN (10:03)
[2019-08-07] MEDS: OXYCODONE HCL IR 5 MG TAB (IMMEDIATE RELEASE) PO PRN (15:53)
--- NOTE | 2019-08-07 19:16 | Hospitalist Progress Note ---
Date of Service August 07, 2019 Assessment & Plan (1) Aspiration into lower respiratory tract: barium swallow yesterday with aspiration very early on in the study. this suggests that the connection/fistula between the esophagus and trachea that should be sealed by the speaking valve is allowing swallowed contents to enter the trachea. Dr Chandra feels that fluid is traveling around the valve and through the fistulous tract and then into the trachea causing aspiration. he is going to try a different sized speaking volume to correct this issue. Dr Chandra to have this valve in TOMORROW about 11am at his office he wishes to have the valve replaced IN HIS OFFICE tomorrow thus will need to d/c patient from the hospital to do this keep NPO in meantime due to high risk of ongoing aspiration. cont IV fluids. I spoke with speech therapy today -- plan -- after Dr Chandra changes valve in the office she will come BACK TO [facility] AND HAVE VIDEO SWALLOW SUNDAY AFTERNOON. THIS IS SCHEDULED FOR 4PM. IF SHE PASSES VIDEO SWALLOW SHE CAN THEN GO BACK TO [facility]. IF SHE DOES NOT PASS VIDEO SHE WOULD NEED RE-ADMISSION TO THE HOSPITAL. (2) Left lower lobe pneumonia: aspiration pneumonia. completed 7 days each of cefepime, Vanco, Flagyl (received vanco due to +MRSA). abx now d/c. blood/sputum cx's negative. overall clinically stable. repeat cxr am (3) Respiratory failure: Acute on chronic respiratory failure Acute component resolved. Was 2nd to pneumonia +/- COPD exacerbation Stopped abx Wean steroids takes 10mg daily of prednisone for COPD chronically. (4) IZABEL (acute kidney injury): resolved peak Cr 1.6 BMPs stable since (5) COPD (chronic obstructive pulmonary disease): remains on IV solumedrol daily takes 10mg of prednisone daily - for COPD maintenance based on outpatient [employer] records in light of NPO status will need to continue IV solumedrol in meantime will resume prednisone once taking PO again (6) Dilatation of colon: likely colitis per GI and gen surg resolving/resolved surgery had been following; no Rx needed resume diet when ok from a swallowing standpoint/aspiration standpoint (7) Laryngeal cancer: s/p laryngectomy for such many years ago by Dr Chandra has voice valve (Provox) that is changed every 2-3 months with proper fitting it seals a tiny connection between the trachea and esophagus several days ago food substances exuded from her tracheal stoma Dr Chandra on 08/05 discovered that the valve was missing it likely became dislodged and fell into the stomach it should pass w/o difficulty he placed a new Provox valve on 08/05 full liquids diet was restarted on 08/05 unfortunately had barium swallow today showing aspiration- see "aspiration into..." above for further information NPO until Dr Chandra sees tomorrow in office see above discussion (8) Tracheostomy present: only has stoma has not had trach in years had trach temporarily earlier this stay; now discontinued see discussion above (9) Anxiety: cont home meds (ativan prn) (10) GERD (gastroesophageal reflux disease): cont PPI (11) Anemia: b12 is low-normal -- will supplement iron studies c/w iron deficiency -- will supplement recently there was concern of GI bleeding (had had melena by report) however stool was recently heme negative seen by GI this admission - endoscopic eval deferred CBC shows stable H/H supplement FE and B12 when able to take PO (12) DVT prophylaxis: cont heparin SC PT/OT updated sister EXTENSIVELY by phone on 08/05 and 08/06 - numerous questions answered sample case porter aware of plan of care for tomorrow complicated disposition Subjective tele stable overnight. no new issues. mild frontal headache. playing games on phone upon my arrival. no dyspnea. minimal secretions from stoma. Review of Systems Constitutional: no fever Respiratory: no dyspnea Cardiovascular: no chest pain, no orthopnea, no paroxysmal nocturnal dyspnea and no edema Gastrointestinal: no nausea and no vomiting Physical Exam Constitutional: + thin; no acute distress ENMT: Mouth: no oral mucosal abnormality and oral mucous membranes not dry Respiratory: no respiratory distress Auscultation: + diminished lung sounds and + wheezes (occasional) Cardiovascular: Rate/Rhythm: regular rate and regular rhythm Heart Sounds: normal S1 and normal S2; no murmur Vessels: posterior tibial pulses present and dorsalis pedis pulses present; no JVD Extremities: no edema Gastrointestinal (Abdomen): normal bowel sounds, soft, nontender, no hepatosplenomegaly Inspection/Auscultation: normal bowel sounds; abdomen not distended Psychiatric: A+Ox3, euthymic affect Results & Data Vital Signs (Past 12 Hours) Vital Signs Temp Pulse Pulse Resp BP BP Pulse Ox 08/07/19 15:00 36.6 C 63 20 115/67 96 08/07/19 13:35 68 18 94 08/07/19 11:08 36.4 C L 88 20 141/80 H 08/07/19 09:00 66 08/07/19 07:20 65 16 95 PG Care Time/CCT Total # of Minutes Spent Total Time Spent with Patient: Total time spent is greater than 50% in coordination of care (as documented) at patient's floor/unit and/or counseling patient: (1) Aspiration into lower respiratory tract Encounter type: sequela Qualified Code(s): T17.800S - Unspecified foreign body in other parts of respiratory tract causing asphyxiation, sequela (2) Left lower lobe pneumonia Pneumonia type: due to unspecified organism Qualified Code(s): J18.1 - Lobar pneumonia, unspecified organism (3) Respiratory failure Chronicity: acute Respiratory failure complication: hypoxia and hypercapnia Qualified Code(s): J96.01 - Acute respiratory failure with hypoxia; J96.02 - Acute respiratory failure with hypercapnia (4) COPD (chronic obstructive pulmonary disease) COPD type: unspecified COPD Qualified Code(s): J44.9 - Chronic obstructive pulmonary disease, unspecified (5) GERD (gastroesophageal reflux disease) Esophagitis presence: esophagitis presence not specified Qualified Code(s): K21.9 - Gastro-esophageal reflux disease without esophagitis (6) Anemia Anemia type: iron deficiency Iron deficiency anemia type: other iron deficiency Qualified Code(s): D50.8 - Other iron deficiency anemias
[2019-08-08] MEDS: ALBUT/IPRATROP 3MG/0.5MG NEB 3 ML VIAL NEB SCH ×3 (00:54→13:12)
[2019-08-08] MEDS: D5W AND 1/2NSS + 20MEQ KCL 20 MEQ/1,000 ML BAG IV SCH (04:44)
[2019-08-08] MEDS: PROMETHAZINE HCL 6.25 MG in SODIUM CHLORIDE 0.9% 50 ML IV PRN (06:33)
[2019-08-08] MEDS: ACETAMINOPHEN 65 ML IV PRN (06:52)
[2019-08-08] MEDS: VENLAFAXINE HCL XR 37.5 MG CAPXR PO SCH (07:37)
[2019-08-08] MEDS: HEPARIN SOD 5,000 UNIT/0.5 ML VIAL SQ SCH (07:37)
[2019-08-08 08:08] LABS: BUN Creatinine Ratio 4.5 (10-20); Calcium 8.6 mg/dl (8.5-10.1); Creatinine Clr Calc Pharmacy 52.6 ml/min; Est GFR (African American) 87.8; Est GFR (Non-African American) 75.8; Potassium 3.7 mmol/L (3.5-5.1)
[2019-08-08] MEDS ORDERED: methylPREDNISolone 30 MG in SYRINGE 0 ML IV ONE (08:45)
--- NOTE | 2019-08-08 09:00 | XRay Report ---
XR chest 2V routine HISTORY: 69 years-old Female recent pneumonia, interval change acute shortness of breath with histor y of recent pneumonia COMPARISON: Chest radiograph 07/29/2019, CT abdomen and pelvis 07/30/2019 TECHNIQUE: PA and lateral views of the chest FINDINGS: Cardiac silhouette is enlarged, unchanged. The patient is rotated which limits exam. Calcified plaque of the thoracic aortic arch. The previously noted tracheostomy cannula appears to have been removed in the interval. Surgical clips are again noted projecting over the neck and upper chest. No pneumoth orax. Chronic right perihilar and right lung base opacities. Persistent ill-defined airspace opacitie s of the left lung base of moderately improved from comparison. Hyperinflation with suggested emphyse ma. No large pleural effusion or overt pulmonary edema. Degenerative changes of the shoulders and spi ne. IMPRESSION: 1. Persistent bibasilar opacities with moderately improved aeration of the left lung base. Findings a re suggestive of resolving pneumonia. The above report was generated using voice recognition software. It may contain grammatical, syntax o r spelling errors. Electronically signed by: Brad Limon M.D. 08/08/2019 8:59 AM
[2019-08-08 09:33] LABS: Hematocrit (blood only) 38.6 % (37-47); Hemoglobin 11.3 g/dL (12.0-16.0); Mean Corpuscular Hemoglobin 21.3 pg (25-34); Mean Corpuscular Volume 72.8 fL (80-100); Mean Platelet Volume 9.8 fL (7.4-10.4); Platelet Count 210 K/uL (130-400); RDW Coefficient of Variation 18.4 % (11.5-14.5); RDW Standard Deviation 47.3 fL (36.4-46.3); White Blood Count 10.76 K/uL (4.8-10.8)
[2019-08-08 09:43] LABS: Mean Corpuscular Hgb Conc 29.3 g/dL (32-36)
[2019-08-08] MEDS: LORazepam 0.5 MG/1 ML VIAL IV PRN (09:59)
[2019-08-08] MEDS ORDERED: GLUCOSE 10 TABS/TUBE PO ONE (12:30)
--- NOTE | 2019-08-14 00:30 | Discharge Summary ---
Date of Service date of admission - July 30, 2019 date of discharge - August 08, 2019 Admission HPI Per Admitting Provider Pt is a 69 yo female with extensive PMH including laryngeal ca s/p laryngectomy with stoma, h/o pneumonia with respiratory arrest 2014, end stage COPD with chronic hypoxic respiratory failure on 6L continuously, CAD, hypothyroidism, chronic anemia, MSSA pneumonia 2017, Breast ca, RLL lung ca, depression, anxiety who was transferred from [facility] via EMS for concerns of GI bleed. According to report, patient was lucid when it was noted she had dark tarry stool. EMS was transporting her to the ER when on transport she was noting to begin having respiratory difficulties. She was administered a neb en route, which did not help, she became difficult to arouse and required her stoma site to be intubated with a 6-0 endotube. Pt agitated on arrival to ER, was given versed and endotube removed. Initial labs revealed elevated WBC of 30K, lactate 6.3, VBG pH of 7.21, VBG pCO2 77 (BMP CO2 27), Cr 1.6. Of note, hemoccult negative reported in ER. She was given a 1L bolus and given a dose of levaquin. Principal Diagnosis acute/chronic hypoxic respiratory failure 2nd to aspiration pneumonia Discharge Exam Constitutional + thin; no acute distress ENMT Mouth: no oral mucosal abnormality and oral mucous membranes not dry Neck stoma present anterior neck Respiratory no respiratory distress Auscultation: + diminished lung sounds and + wheezes (occasional) Cardiovascular Rate/Rhythm: regular rate and regular rhythm Heart Sounds: normal S1 and normal S2; no murmur Vessels: posterior tibial pulses present and dorsalis pedis pulses present; no JVD Extremities: no edema Gastrointestinal (Abdomen) normal bowel sounds, soft, nontender, no hepatosplenomegaly Inspection/Auscultation: abdomen not distended Psychiatric A+Ox3, euthymic affect Discharge Data Allergies Allergy/AdvReac Type Severity Reaction Status Date / Time alendronate sodium Allergy U UNK Verified 07/29/19 23:48 penicillin V Allergy U UNK Verified 07/29/19 23:48 Sulfa (Sulfonamide Allergy U UNKNOWN Verified 07/29/19 23:48 Antibiotics) sulfadiazine Allergy U Unknown Verified 07/29/19 23:48 morphine AdvReac MA itching Verified 07/29/19 23:48 Consultations 1. ortho rn 2. general surgery 3. palliative care 4. gastroenterology 5. oromaxillofacial surgery - Aristeo Chandra DDS 6. ENT 7. PT, OT Ordered Studies 1. CT abd/pelvis - IMPRESSION: 1. Bibasilar airspace opacities most pronounced on the left which likely represents a pneumonia. There is also complete collapse of the right middle lobe which likely accounts for the mild right mediastinal shift. There appears to be stenosis with near occlusion of the proximal right middle lobe bronchus which is only partially imaged on this study. This is new from the recent chest CT on 07/21/2019 and may be due to mucous plugging. Bronchoscopy recommended for further evaluation. 2. No definite bowel wall thickening or obstruction. 3. Normal appendix. 4. Mildly distended and gas-filled stomach and mid to distal colon. No transition point to suggest an obstruction. 2. barium swallow - IMPRESSION: 1. The examination was discontinued due to aspiration with cough reflex. 2. Focal esophageal narrowing at the level of C5 is unchanged from previous. Hospital Course (1) Left lower lobe pneumonia: The patient was admitted to the ICU initially for LLL aspiration pneumonia. Pre-hospital she became unresponsive with respiratory distress while in the ambulance and was intubated by EMS via her tracheal stoma with 6.0 ETT. This was quickly removed after admission to the ICU and she was transitioned to blow-by O2 to her stoma. She completed 7 days each of cefepime, Vanco, Flagyl (received vanco due to +MRSA screen). Sputum culture grew strep pneumoniae. Blood cultures remained negative while hospitalized. Repeat cxr later in her stay showed improving infiltrates. (2) Aspiration into lower respiratory tract: Initially the patient was evaluated by [facility] to determine the integrity of her upper airway. At the time of that evaluation it was felt that her upper airway and her esophagus were at baseline in the setting of a prior complete laryngectomy. Later on in her stay, however, staff and physicians witnessed aspiration of liquids as evidenced of fluid exuding from her tracheal stoma. She was seen by Dr Aristeo Chandra who has followed her for many years. During his consultation he found that her speaking valve had dislodged from her TE puncture site (a surgically created site at the time of her complete laryngectomy years ago). The puncture site is such that there is indeed a valentin rgically created connection or fistulous tract at that site between the trachea and esophagus. Because the valve was missing Dr Chandra replaced the speaking valve at the bedside with the same sized unit. He typically does this in the office for Ms Maria every 2-3 months. There was minimal to no concern that the missing speaking valve had migrated into the lungs. As a precautionary measure a barium swallow was completed the next morning to ensure the valve was tight and no aspiration was occuring. Unfortunately there was aspiration of thin liquids early on in the study and the barium test was promptly terminated. Dr Chandra felt that fluid was traveling around the valve and through the fistulous tract and then into the trachea causing aspiration. He did not feel there was a new fistulous tract. He recommended a DIFFERENT sized speaking valve to correct this issue. On day of discharge the patient was transported to Dr Chandra's office. During that visit he downsized the speaking valve from a 6mm device to a 4.5mm device. Grossly it looked like it was a good fit. Mrs Maria was then transported back to [facility] where she underwent a repeat video swallow evaluation. She did indeed PASS the video swallow without aspiration. Mrs Maria was then allowed to return to [facility] following the video swallow. (3) Respiratory failure: Acute on chronic respiratory failure. Acute component resolved. Was 2nd to LLL pneumonia +/- COPD exacerbation Completed full course of antibiotics. Completed course of IV steroids. She will take a prednisone taper and ultimately resume 10mg/day of prednisone as previous. She was on 8 L/min of O2 via trach collar at discharge. CXR on day of admission was stable and improved. (4) IZABEL (acute kidney injury): resolved peak Cr 1.6 Cr on day of discharge 0.8 (5) COPD (chronic obstructive pulmonary disease): with exacerbation. Treated in customary fashion with nebs, IV steroids, antibiotics, etc. Resolved by time of discharge. She is steroid-dependent and will remain on 10mg/day of prednisone as previous after completing taper of prednisone. (6) Dilatation of colon: Seen by GI and general surgery at time of admission as she complained of abdominal bloating and discomfort. Her CT findings were felt to represent colitis rather than an obstructive process. No GI bleeding was found while hospitalized. No GI infections were found. Her abdominal exam was benign at time of discharge. Her bowel movements were relatively normal at discharge as well. (7) Laryngeal cancer: s/p laryngectomy for such many years ago by Dr Aristeo Chandra. has speaking valve (Provox) that is changed every 2-3 months with proper fitting it seals a tiny connection between the trachea and esophagus several days into her hosptialization food substances exuded from her tracheal stoma Dr Chandra on 08/05/19 discovered that the valve was missing it likely became dislodged and fell into the stomach it should pass w/o difficulty he placed a new Provox valve on 08/05 full liquids diet was restarted on 08/05 unfortunately had barium swallow shortly after showing aspiration- see "aspiration into..." above for further information and end-result (8) Tracheostomy present: only has stoma has not had trach in years had trach temporarily earlier this stay; now discontinued (9) Anxiety: cont home meds (ativan, effexor, etc) (10) GERD (gastroesophageal reflux disease): cont PPI (11) Anemia: b12 is low-normal -- will supplement iron studies c/w iron deficiency -- will supplement recently there was concern of GI bleeding (had had melena by report) however stool was heme negative seen by GI this admission - endoscopic evaluation deferred for now CBC shows stable H/H supplement FE and B12 at discharge advised follow-up with GI as outpatient for consideration of endoscopies Total Time Total Time Spent Total Time Spent (In Minutes): 60 Total Time Includes: Examination of the Patient, Discharge Planning, Medication Reconciliation and Communication With Other Providers Discharge Plan Discharge Items Patient Disposition: Transfer Nursing Home Fac Reason For Visit: RESPIRATORY DISTRESS Discharge Diagnosis: 1. aspiration pneumonia 2. h/o complete laryngectomy 3. speaking/voice valve status 4. tiny, surgically created TE fistula due to #2 above 5. oxygen-dependent, steroid-dependent COPD 6. aspiration due to #4 Condition on Discharge: Fair Goals: 1. treat pneumonia 2. treat COPD 3. prevent aspiration Activity: Resume your previous activity Non-emergency contact: Primary Care Provider, Surgeon and Tower Director Call non-emergency contact if: you have any medication questions, your symptoms worsen, your pain is not controlled and you have a fever Follow-up/Referrals: Ras Bruno MD [Physician] - (please see Dr Bruno or any provider wit [facility] for COPD within 1 week) [facility] [Primary Care Provider] - Aristeo Chandra MD, DDS [Surgeon] - 08/08/19 (see Dr Chandra for speaking valve replacement on day of discharge) Diet: Low Fiber Diet Comment: patient to be NPO until video swallow is completed on 08/08/19 Addtl Attending Provider Instructions: 1. Mrs Maria will discharge from [facility] and will transport directly to Dr Aristeo Chandra's office in [place] for speaking valve replacement. 2. Following that procedure Mrs Maria will then report BACK to [facility] for video swallow evaluation. This is currently scheduled for 4pm. 3. If the video swallow test is NORMAL Mrs Maria can then discharge back to [facility]. She can then resume her previous diet. 4. If the video swallow test is abnormal or if speech therapy feels she is not safe to take anything by mouth she would then be READMITTED to [facility] for ongoing treatment. If Ms Maria returns to [facility] on 08/08/19 recommend the following - 1. repeat CBC, BMP, and magnesium within 3 days for stability (08/11/19). Results to medical technologist hematology. 2. prednisone taper as directed in the medication list. 3. ongoing use of oxygen via trach collar; currently using 8 L/min of O2 via trach collar. keep o2 sats 88-90% or greater. May adjust O2 to meet that oxygen sat goal. Follow-up -- see separate section. Recommend she see [facility] within 1 week at the latest. Patient to return to [facility] if -- 1. Dr Chandra recommends re-admission 2. speech therapy recommends re-admission (ie - fails video swallow test) 3. worsening shortness of breath occurs 4. any other concerns Pending Studies at Discharge: No Stand-Alone Forms: My [facility] Skilled Items Patient informed of condition?: Yes DNR: No Discharge Level of Care: Skilled Communicable Disease: No Discharge Prognosis: Stable Lines: None Urinary Catheter: No Medications and DC Order Prescriptions: New potassium chloride 20 mEq/15 mL liquid 10 meq PO DAILY Qty: 450 RF: 2 ferrous sulfate 325 mg (65 mg iron) tablet 325 mg PO BID Qty: 60 RF: 2 cyanocobalamin (vitamin B-12) 1,000 mcg capsule 1,000 mcg PO DAILY Qty: 30 RF: 11 Continued sodium phosphates [Fleet Enema] 19-7 gram/118 mL enema 118 ml IN DAILY PRN (Reason: constipation) RF: 0 peg 400-propylene glycol (PF) [Systane (PF)] 0.4-0.3 % dropperette 1 drops OP QID PRN (Reason: dry eye(s)) RF: 0 NSS Nebulizer 1 dose NEB Q6H PRN (Reason: Increased Secretion/Congestion) Qty: 0 RF: 0 aspirin 81 mg Tablet,Chewable 81 mg PO DAILY RF: 0 bismuth subsalicylate 525 mg/15 mL Suspension 525 mg PO Q6H PRN (Reason: nausea/diarrhea) RF: 0 buspirone 15 mg Tablet 15 mg PO TID RF: 0 Cepacol Sore Throat (luiza-men) 15-2.6 mg Lozenge 1 flo PO Q4H PRN (Reason: Sore Throat) RF: 0 bisacodyl [Dulcolax (bisacodyl)] 10 mg Suppository 10 mg IN DAILY PRN (Reason: Constipation) RF: 0 guaifenesin 100 mg/5 mL Liquid 100 mg PO QID PRN (Reason: Cough) RF: 0 loperamide 2 mg Tablet 2 mg PO DIRECTED PRN (Reason: loose stools) RF: 0 Maalox Plus 30 ml PO Q8H PRN (Reason: Acid Reflux) RF: 0 Magic Swizzle 20 ml PO QID PRN (Reason: sore mouth) RF: 0 metoprolol tartrate 25 mg Tablet 25 mg PO BID RF: 0 magnesium hydroxide [Milk of Magnesia] 400 mg/5 mL Suspension 30 ml PO DAILY PRN (Reason: Constipation) RF: 0 omeprazole 20 mg Capsule,Delayed Release(Dr/Ec) 20 mg PO BID RF: 0 ranitidine HCl 150 mg Tablet 150 mg PO BID RF: 0 simethicone [Gas Relief 80] 80 mg Tablet,Chewable 80 mg PO Q6H PRN (Reason: gas relief) RF: 0 Simply Saline 1 dose pk inhalation Q6H PRN (Reason: increased secretions) RF: 0 Systane Ultra Solution 1 drp QID PRN (Reason: dryness) RF: 0 venlafaxine 37.5 mg Tablet Extended Release 24hr 75 mg PO DAILY RF: 0 albuterol sulfate [Ventolin HFA] 90 mcg/actuation Hfa Aerosol Inhaler 2 puff INHALATION Q6H PRN (Reason: bronchospasms) RF: 0 lorazepam [Ativan] 0.5 mg Tablet 0.5 mg PO BID PRN (Reason: Anxiety) Qty: 15 RF: 0 oxycodone 5 mg Tablet 5 mg PO Q6H PRN (Reason: pain 5-10) Qty: 15 RF: 0 Changed furosemide [Lasix] 40 mg Tablet 20 mg PO QAM Qty: 30 RF: 0 prednisone 10 mg Tablet 10 mg PO DIRECTED Qty: 60 RF: 5 levalbuterol HCl 1.25 mg/0.5 mL Solution For Nebulization 1.25 mg INHALATION Q6H Qty: 1 RF: 0 Discharge Orders: Discharge Order (Routine); Ordered 08/08/19 Ordered By: David Higuera Admission Data Admit Date/Time: 07/30/19 01:34 Attending Provider: David Higuera Admit Provider: Viviana Fletcher Primary Care Provider: Tyrese Alcantar Other Providers: Tyrese Alcantar ; Ihsan Sorto ; Jus Foy ; Romeo Park ; Myron Eli ; Hoang Juárez ; Aristeo Chandra Other Interventions: Discharge Summary Assessment (RN) Last Done: 08/08/19 10:58 DC Date/Time DO NOT enter until pt leaves facility: 08/08/19 15:00
--- NOTE | 2019-08-19 13:41 | Coding Query ---
CODING QUERY To promote full compliance with coding requirements relating to patient care, provider participation is requested in all cases of equity director uncertainty. Please assist us with the question(s) below: Coding Question(s): Please clarify if COPD was with exacerbation yes - COPD was WITH exacerbation. thanks, roxane Briggs's Response(s): Thank you Gauri Hall Principal Diagnosis: "that condition established after study, to be chiefly responsible for occasioning the admission of the patient to the hospital for care." Co-Existing Principal Diagnosis: "when two or more diagnoses equally meet the criteria for principal diagnosis as determined by the circumstances of admission, diagnostic work up, and/or therapy provided, and the Alphabetic Index, Tabular List, or another coding guideline does not provide sequencing direction, any one of the diagnoses may be sequenced first." "When the physician has documented what appears to be a current diagnosis in the body of the record, but has not included the diagnosis in the final diagnostic statement, the physician should be asked whether the diagnosis should be added." (Source Coding [facility] 2 QTR90. p3-4) RAFAL
== END 2019-08-08 15:00 | DRG 919 ==
LOC: ED 23:04 → 1E 07-30 01:34 → SUATTDRO 07-30 01:34 → 1E 07-30 02:25 → 2S 07-30 12:38 → 2W 08-01 08:42

== ENCOUNTER 2020-04-18 14:18 | Inpatient (IN) ==
[2020-04-18] MEDS ORDERED: LORazepam 0.25 MG/0.5 ML VIAL IV STA ×2 (14:33→15:11)
[2020-04-18] MEDS ORDERED: FAMOTIDINE 20MG/5ML IV PUSH IV STA (14:44)
[2020-04-18 14:55] LABS: Basophils # (auto) 0.01 K/uL (0-0.2); Basophils % (auto) 0.1 %; Eosinophils # (auto) 0.44 K/uL (0-0.5); Eosinophils % (auto) 4.9 %; Hematocrit (blood only) 42.8 % (37-47); Hemoglobin 13.2 g/dL (12.0-16.0); Immature Granulocytes # (auto) 0.02 K/uL (0.00-0.02); Immature Granulocytes % (auto) 0.2 %; Lymphocytes # (auto) 2.01 K/uL (1.2-3.4); Lymphocytes % (auto) 22.5 %; Mean Corpuscular Hemoglobin 27.7 pg (25-34); Mean Corpuscular Hgb Conc 30.8 g/dL (32-36); Mean Corpuscular Volume 89.9 fL (80-100); Mean Platelet Volume 9.9 fL (7.4-10.4); Monocytes # (auto) 0.75 K/uL (0.11-0.59); Monocytes % (auto) 8.4 %; Neutrophils % (auto) 63.9 %; Platelet Count 220 K/uL (130-400); RDW Coefficient of Variation 15.1 % (11.5-14.5); RDW Standard Deviation 49.1 fL (36.4-46.3); Red Blood Count 4.76 M/uL (4.2-5.4); White Blood Count 8.93 K/uL (4.8-10.8)
--- NOTE | 2020-04-18 14:58 | Emergency Department Note ---
History of Present Illness General Chief complaint: Shortness of Breath/Dyspnea Stated complaint: sob / [place] Time Seen by Provider: 04/18/20 14:18 Source: EMS Mode of arrival: EMS Limitations: clinical acuity History of Present Illness Provider complaint: shortness of breath Onset (ago): hour(s) Severity: moderate Associated symptoms: + shortness of breath; no fever/chills This 69-year-old female brought in by EMS from [facility] due to increased trouble breathing. Patient does have a history of a prior laryngectomy and has a stoma from prior trach. Patient had an esophageal dilatation by GI on Sunday. Patient has a history of lung cancer as well as esophageal cancer and prior COPD. Patient is stating it feels like her airway is closing and on presentation she is sticking her finger into her stoma and removing discharge. Pt seen during a time of high acuity and national emergency pandemic while wearing PPE. Home Medications Home Medications Medication Instructions Recorded Confirmed Type Cepacol Sore Throat (luiza-men) 1 flo PO Q4H PRN 07/29/19 04/18/20 History aspirin 81 mg PO QAM 07/29/19 04/18/20 History bismuth subsalicylate 525 mg PO Q6H PRN 07/29/19 04/18/20 History buspirone 15 mg PO TID 07/29/19 04/18/20 History Magic Swizzle 20 ml PO QID 07/30/19 04/18/20 History simethicone [Gas Relief 80 80 mg PO QID 07/30/19 04/18/20 History (simethicone)] prednisone 10 mg PO QAM 08/21/19 04/18/20 History potassium chloride [Klor-Con M10] 10 meq PO QAM 09/19/19 04/18/20 History alum-mag hydroxide-simeth [Maalox 30 ml PO Q8H PRN 10/23/19 04/18/20 History Advanced] docusate sodium 100 mg capsule 200 mg PO HS cap 12/02/19 04/18/20 History Saline Solution 12/31/19 12/31/19 History Systane (propylene glycol) 1 drp OPHTHALMIC (EYE) Q6 PRN 12/31/19 04/18/20 History furosemide 20 mg PO QAM 12/31/19 04/18/20 History loratadine [Claritin] 10 mg PO QAM 12/31/19 04/18/20 History lorazepam [Ativan] 0.5 mg PO Q12 PRN 12/31/19 04/18/20 History metoprolol tartrate 50 mg PO BID 12/31/19 04/18/20 History sodium chloride 3 ml INHALATION QID 12/31/19 04/18/20 History venlafaxine 75 mg PO BID 12/31/19 04/18/20 History budesonide 0.5 mg INHALATION BIDR #60 ml 01/04/20 04/18/20 Rx multivitamin 1 tab PO QAM #30 tab 01/04/20 04/18/20 Rx acetaminophen 650 mg PO Q6 PRN 04/09/20 04/18/20 History famotidine 20 mg PO BID 04/09/20 04/18/20 History ferrous sulfate 325 mg PO QAM 04/09/20 04/18/20 History levothyroxine 125 mcg PO QAM 04/09/20 04/18/20 History pantoprazole [Protonix] 40 mg PO QAM 04/09/20 04/18/20 History cyanocobalamin (vitamin B-12) 1,000 mcg PO QAM 04/18/20 04/18/20 History formoterol fumarate 20 mcg INHALATION BID 04/18/20 04/18/20 History Allergies Allergy/AdvReac Type Severity Reaction Status Date / Time alendronate sodium Allergy U UNK Verified 04/18/20 15:39 penicillin V Allergy U UNK Verified 04/18/20 15:39 sulfadiazine Allergy U Unknown Verified 04/18/20 15:39 Past Med/Surg History Medical History (Updated 04/19/20 @ 12:51 by David Higuera) Anemia Cancer HX lung and laryngeal cancer Chronic pain syndrome Chronic respiratory failure (Acute) Constipation COPD (chronic obstructive pulmonary disease) Depression with anxiety Dysphagia Elevated hemidiaphragm GERD (gastroesophageal reflux disease) History of breast cancer (Acute) History of ETOH abuse (Acute) History of pneumonia (Acute) aspiration pneumonia in left lower lobe History of radiation therapy Larynx: 02/25/09 - 04/09/09 Hyperlipemia Hypertension Hypothyroidism Insomnia Lactose intolerance (Acute) 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 Dr. Jin in MAIN OR. Lightly sedated patient, suctioned stoma and placed 6.0 ETT through stoma. Secured in place. General with SEVO. 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 and A total of 10 systems reviewed and were otherwise negative Physical Exam Vital Signs Vital Signs - 24 hr 04/18/20 13:36 04/18/20 14:27 04/18/20 14:29 Temperature Temperature Source Pulse Rate 125 H 117 H 111 H Pulse Rate from SpO2 Sensor 112 H Respiratory Rate 21 23 28 H Respiratory Effort / Characteristics Respiratory Depth Respiratory Pattern Blood Pressure 134/76 147/110 H Blood Pressure Mean 94 118 Pulse Oximetry 93 Oxygen Delivery Method Trach Collar Oxygen Flow Rate 8 Sepsis Recent Fever Within 48 Hours Sepsis Action Taken by Nursing 04/18/20 14:30 04/18/20 14:31 04/18/20 14:35 Temperature Temperature Source Pulse Rate 121 H 118 H Pulse Rate from SpO2 Sensor 107 H 116 H Respiratory Rate 23 20 Respiratory Effort / Characteristics Respiratory Depth Respiratory Pattern Blood Pressure 140/106 H Blood Pressure Mean 118 Pulse Oximetry 95 100 100 Oxygen Delivery Method Trach Collar Trach Collar Trach Collar Oxygen Flow Rate 8 8 8 Sepsis Recent Fever Within 48 Hours Sepsis Action Taken by Nursing 04/18/20 14:36 04/18/20 15:00 04/18/20 15:02 Temperature 37.3 C Temperature Source Oral Pulse Rate 116 H 103 H 86 Pulse Rate from SpO2 Sensor 100 H 100 H Respiratory Rate 30 H 23 25 H Respiratory Effort / Characteristics Non-Labored Spontaneous Respiratory Depth Normal Respiratory Pattern Regular Blood Pressure 147/110 H 113/84 Blood Pressure Mean 122 89 Pulse Oximetry 100 96 Oxygen Delivery Method Trach Collar Oxygen Flow Rate 8 8 Sepsis Recent Fever Within 48 Hours No Sepsis Action Taken by Nursing No Action Required 04/18/20 15:30 04/18/20 15:31 04/18/20 15:54 Temperature Temperature Source Pulse Rate 96 H 99 H 100 H Pulse Rate from SpO2 Sensor 93 H 96 H 97 H Respiratory Rate 28 H 31 H 36 H Respiratory Effort / Characteristics Respiratory Depth Respiratory Pattern Blood Pressure 95/74 L 108/64 Blood Pressure Mean 86 70 Pulse Oximetry 92 92 99 Oxygen Delivery Method Trach Collar Trach Collar Trach Collar Oxygen Flow Rate 8 8 8 Sepsis Recent Fever Within 48 Hours Sepsis Action Taken by Nursing 04/18/20 16:00 04/18/20 16:01 04/18/20 16:30 Temperature Temperature Source Pulse Rate 99 H 95 H 88 Pulse Rate from SpO2 Sensor 99 H 96 H 88 Respiratory Rate 25 H 29 H 29 H Respiratory Effort / Characteristics Respiratory Depth Respiratory Pattern Blood Pressure 114/70 119/65 Blood Pressure Mean 101 84 Pulse Oximetry 96 97 99 Oxygen Delivery Method Trach Collar Trach Collar Trach Collar Oxygen Flow Rate 8 8 8 Sepsis Recent Fever Within 48 Hours Sepsis Action Taken by Nursing 04/18/20 16:31 04/18/20 17:00 04/18/20 17:01 Temperature Temperature Source Pulse Rate 92 H 92 H 96 H Pulse Rate from SpO2 Sensor 94 H 90 93 H Respiratory Rate 30 H 22 22 Respiratory Effort / Characteristics Respiratory Depth Respiratory Pattern Blood Pressure 118/70 Blood Pressure Mean 82 Pulse Oximetry 99 98 92 Oxygen Delivery Method Trach Collar Trach Collar Trach Collar Oxygen Flow Rate 8 10 10 Sepsis Recent Fever Within 48 Hours Sepsis Action Taken by Nursing 04/18/20 17:30 04/18/20 17:31 04/18/20 18:00 Temperature Temperature Source Pulse Rate 83 86 88 Pulse Rate from SpO2 Sensor 84 81 89 Respiratory Rate 20 23 23 Respiratory Effort / Characteristics Respiratory Depth Respiratory Pattern Blood Pressure 104/63 100/68 Blood Pressure Mean 81 70 Pulse Oximetry 97 100 Oxygen Delivery Method Trach Collar Trach Collar Oxygen Flow Rate 10 10 Sepsis Recent Fever Within 48 Hours Sepsis Action Taken by Nursing 04/18/20 18:01 04/18/20 18:30 04/18/20 18:31 Temperature Temperature Source Pulse Rate 91 H 85 85 Pulse Rate from SpO2 Sensor 88 75 Respiratory Rate 23 31 H 20 Respiratory Effort / Characteristics Respiratory Depth Respiratory Pattern Blood Pressure 97/55 L Blood Pressure Mean 61 Pulse Oximetry 99 Oxygen Delivery Method Trach Collar Oxygen Flow Rate 10 Sepsis Recent Fever Within 48 Hours Sepsis Action Taken by Nursing GENERAL: alert, chronically ill appearing, well nourished, moderate distress, non-toxic EYE EXAM: normal conjunctiva, PERRL and EOM's grossly intact OROPHARYNX: no exudate, no erythema, lips, buccal mucosa, and tongue normal and mucous membranes are moist NECK: supple, no nuchal rigidity, no adenopathy, non-tender, stoma anterior/inferior neck consistent with prior trach, pt sticking her finger in and pulling discharge out out of the stoma LUNGS: Clear to auscultation. Normal chest wall mechanics, rales b/l, tachypneic HEART: no murmurs, S1 normal and S2 normal ABDOMEN: abdomen soft, non-tender, normo-active bowel sounds, no masses, no rebound or guarding. BACK: Back is symmetrical on inspection and there is no deformity, no midline tenderness, no CVA tenderness. SKIN: no rashes and no bruising UPPER EXTREMITIES: upper extremities are grossly normal. FROM, nml pulses b/l. LOWER EXTREMITIES: No pitting edema. FROM, nml pulses b/l. NEURO EXAM: Normal sensorium, cranial nerves II-XII grossly intact, normal speech, no gross weakness of arms, no gross weakness of legs. Gross sensation intact. Course Course 1500: RT suctioned stoma and removed large mucous plug. Pt placed on humification. 151: HR improved. Pt still tachypneic but improving. No hypoxia. 1550: Heart rate 98, sats 98%, respiratory rate 24. Patient continues to request more Ativan. 1834: Discussed CT findings with radiology. 1849: Pt updated on results. 1921: Case discussed with Dr Veloz. Administered Medications Acetaminophen (Tylenol) 650 mg PO Q6H PRN PRN Reason: Pain Stop: 05/18/20 23:07 Last Admin: 04/20/20 00:15 Dose: 650 mg Documented by: [id number] Admin: 04/19/20 18:03 Dose: 650 mg Documented by: [id number] Hydrox/Mg Hydrox/Simethicone (Maalox) 30 ml PO Q8H PRN PRN Reason: Acid Reflux Last Admin: 04/19/20 20:53 Dose: 30 ml Documented by: [id number] Admin: 04/18/20 23:48 Dose: 30 ml Documented by: [id number] Albuterol (Duoneb) 3 ml NEB QIDR [facility] Stop: 05/19/20 10:59 Last Admin: 04/20/20 20:08 Dose: Not Given Documented by: [id number] Admin: 04/20/20 15:08 Dose: 3 ml Documented by: [id number] Admin: 04/20/20 11:09 Dose: 3 ml Documented by: [id number] Admin: 04/20/20 06:55 Dose: Not Given Documented by: [id number] Admin: 04/19/20 19:04 Dose: Not Given Documented by: [id number] Admin: 04/19/20 15:09 Dose: 3 ml Documented by: [id number] Admin: 04/19/20 11:13 Dose: 3 ml Documented by: [id number] Aspirin (Ecotrin Ectab) 81 mg PO QAM [facility] Stop: 05/19/20 08:59 Last Admin: 04/20/20 10:32 Dose: 81 mg Documented by: [id number] Admin: 04/19/20 12:01 Dose: 81 mg Documented by: [id number] Budesonide (Pulmicort Respules) 0.5 mg INH BIDR [facility] Stop: 05/19/20 06:59 Last Admin: 04/20/20 19:05 Dose: 0.5 mg Documented by: [id number] Admin: 04/20/20 06:55 Dose: 0.5 mg Documented by: [id number] Admin: 04/19/20 19:03 Dose: 0.5 mg Documented by: [id number] Admin: 04/19/20 07:22 Dose: 0.5 mg Documented by: [id number] Buspirone HCl (Buspar) 15 mg PO TID [facility] Stop: 05/18/20 21:52 Last Admin: 04/20/20 20:54 Dose: 15 mg Documented by: [id number] Admin: 04/20/20 14:39 Dose: 15 mg Documented by: [id number] Admin: 04/20/20 10:32 Dose: 15 mg Documented by: [id number] Admin: 04/19/20 21:01 Dose: 15 mg Documented by: [id number] Admin: 04/19/20 14:49 Dose: 15 mg Documented by: [id number] Admin: 04/19/20 12:02 Dose: 15 mg Documented by: [id number] Admin: 04/18/20 23:19 Dose: 15 mg Documented by: [id number] Lidocaine HCl 60 ml/Diphenhydramine HCl 150 mg/ Al Hydrox/Mg Hydrox/Simethicone 60 ml/ Glycerin 60 ml/ [employer] 1 ea 0 ml MT QID [facility] Stop: 05/19/20 08:59 Last Admin: 04/20/20 20:58 Dose: 20 ml Documented by: [id number] Admin: 04/20/20 16:39 Dose: 20 ml Documented by: [id number] Admin: 04/20/20 14:31 Dose: 5 ml Documented by: [id number] Admin: 04/20/20 10:58 Dose: 5 ml Documented by: [id number] Admin: 04/19/20 20:53 Dose: 20 ml Documented by: [id number] Admin: 04/19/20 17:46 Dose: 20 ml Documented by: [id number] Admin: 04/19/20 13:04 Dose: Not Given Documented by: [id number] Admin: 04/19/20 12:17 Dose: 20 ml Documented by: [id number] Cyanocobalamin (Vitamin B-12) 1,000 mcg PO QAM [facility] Stop: 05/19/20 08:59 Last Admin: 04/20/20 10:34 Dose: 1,000 mcg Documented by: [id number] Admin: 04/19/20 12:02 Dose: 1,000 mcg Documented by: [id number] Enoxaparin Sodium (Lovenox) 40 mg SQ Q24H [facility] Stop: 05/18/20 21:59 Last Admin: 04/20/20 20:55 Dose: 40 mg Documented by: [id number] Admin: 04/19/20 21:02 Dose: 40 mg Documented by: [id number] Admin: 04/18/20 23:20 Dose: 40 mg Documented by: [id number] Famotidine (Pepcid) 20 mg PO BID [facility] Stop: 05/18/20 21:52 Last Admin: 04/20/20 20:55 Dose: 20 mg Documented by: [id number] Admin: 04/20/20 10:51 Dose: 20 mg Documented by: [id number] Admin: 04/19/20 21:00 Dose: 20 mg Documented by: [id number] Admin: 04/19/20 12:02 Dose: 20 mg Documented by: [id number] Admin: 04/18/20 23:19 Dose: 20 mg Documented by: [id number] [facility]: 05/19/20 08:59 Last Admin: 04/20/20 10:34 Dose: 325 mg Documented by: [id number] Admin: 04/19/20 12:03 Dose: 325 mg Documented by: [id number] Formoterol Fumarate (Perforomist) 20 mcg INH BIDR [facility] Stop: 05/19/20 06:59 Last Admin: 04/20/20 19:05 Dose: 20 mcg Documented by: [id number] Admin: 04/20/20 06:55 Dose: 20 mcg Documented by: [id number] Admin: 04/19/20 19:03 Dose: 20 mcg Documented by: [id number] Admin: 04/19/20 07:22 Dose: 20 mcg Documented by: [id number] Furosemide (Lasix) 20 mg PO QAM [facility] Stop: 05/19/20 08:59 Last Admin: 04/20/20 10:50 Dose: 20 mg Documented by: [id number] Admin: 04/19/20 12:02 Dose: 20 mg Documented by: [id number] Guaifenesin (Mucinex) 1,200 mg PO Q12 [facility] Stop: 05/18/20 21:52 Last Admin: 04/20/20 20:54 Dose: 1,200 mg Documented by: [id number] Admin: 04/20/20 10:31 Dose: 1,200 mg Documented by: [id number] Admin: 04/19/20 21:01 Dose: 1,200 mg Documented by: [id number] Admin: 04/19/20 12:02 Dose: 1,200 mg Documented by: [id number] Admin: 04/18/20 23:18 Dose: 1,200 mg Documented by: [id number] Cefepime HCl 2,000 mg/ Syringe 20 mls @ 5.5 mls/min IV Q12H [facility]; Protocol Stop: 04/25/20 22:59 Last Admin: 04/20/20 23:24 Dose: 5.5 mls/min Documented by: [id number] Admin: 04/20/20 10:59 Dose: 5.5 mls/min Documented by: [id number] Admin: 04/19/20 22:35 Dose: 5.5 mls/min Documented by: [id number] Admin: 04/19/20 12:10 Dose: 5.5 mls/min Documented by: [id number] Admin: 04/18/20 23:21 Dose: 5.5 mls/min Documented by: [id number] Doxycycline Hyclate 100 mg/ (Dextrose) 110 mls @ 50 mls/hr IV Q12 [facility] Stop: 04/26/20 09:29 Last Infusion: 04/20/20 23:23 Dose: 0 mls/hr Documented by: [id number] Admin: 04/20/20 20:58 Dose: 50 mls/hr Documented by: [id number] Infusion: 04/20/20 11:11 Dose: 0 mls/hr Documented by: [id number] Admin: 04/20/20 09:06 Dose: 50 mls/hr Documented by: [id number] Infusion: 04/19/20 23:06 Dose: 0 mls/hr Documented by: [id number] Admin: 04/19/20 20:54 Dose: 50 mls/hr Documented by: [id number] Infusion: 04/19/20 15:28 Dose: 0 mls/hr Documented by: [id number] Admin: 04/19/20 12:49 Dose: 50 mls/hr Documented by: [id number] Methylprednisolone 30 mg/ (Syringe) 0.48 mls @ 1.5 mls/min IV BID [facility] Stop: 05/19/20 10:59 Last Admin: 04/20/20 20:59 Dose: 1.5 mls/min Documented by: [id number] Admin: 04/20/20 09:06 Dose: 1.5 mls/min Documented by: [id number] Admin: 04/19/20 20:58 Dose: 1.5 mls/min Documented by: [id number] Admin: 04/19/20 12:49 Dose: 1.5 mls/min Documented by: [id number] Ioversol (Optiray 320 125ml) 119 ml IV ONCE PRN PRN Reason: Interaction Checking Stop: 04/22/20 17:11 Last Admin: 04/18/20 17:13 Dose: 119 ml Documented by: [id number] Ioversol (Optiray 320 100ml) 94 ml IV ONCE PRN PRN Reason: Interaction Checking Stop: 04/23/20 11:49 Last Admin: 04/19/20 11:51 Dose: 94 ml Documented by: [id number] Ketorolac Tromethamine (Toradol) 15 mg IV Q6H PRN PRN Reason: Pain Stop: 04/23/20 20:34 Last Admin: 04/20/20 17:02 Dose: 15 mg Documented by: [id number] Admin: 04/19/20 20:53 Dose: 15 mg Documented by: [id number] Admin: 04/18/20 23:21 Dose: 15 mg Documented by: [id number] Admin: 04/18/20 20:49 Dose: 15 mg Documented by: [id number] Lactobacillus Acidophilus (Floranex) 4 tab PO TIDM [facility] Stop: 05/20/20 11:59 Last Admin: 04/20/20 16:36 Dose: Not Given Documented by: [id number] Admin: 04/20/20 14:09 Dose: 4 tab Documented by: [id number] Levothyroxine Sodium (Synthroid) 125 mcg PO DAILYBB [facility] Stop: 05/19/20 06:29 Last Admin: 04/20/20 06:21 Dose: Not Given Documented by: [id number] Admin: 04/19/20 06:24 Dose: 125 mcg Documented by: [id number] Loratadine (Claritin) 10 mg PO QAM [facility] Stop: 05/19/20 08:59 Last Admin: 04/20/20 10:32 Dose: 10 mg Documented by: [id number] Admin: 04/19/20 12:01 Dose: 10 mg Documented by: [id number] Lorazepam (Ativan) 0.5 mg PO Q12 PRN PRN Reason: Anxiety Stop: 05/18/20 21:52 Last Admin: 04/20/20 23:28 Dose: 0.5 mg Documented by: [id number] Admin: 04/20/20 00:15 Dose: 0.5 mg Documented by: [id number] Admin: 04/19/20 12:09 Dose: 0.5 mg Documented by: [id number] Admin: 04/18/20 23:21 Dose: 0.5 mg Documented by: [id number] Metoprolol Tartrate (Lopressor) 50 mg PO BID [facility] Stop: 05/18/20 21:52 Last Admin: 04/20/20 20:55 Dose: 50 mg Documented by: [id number] Admin: 04/20/20 10:33 Dose: 50 mg Documented by: [id number] Admin: 04/19/20 20:43 Dose: Not Given Documented by: [id number] Admin: 04/19/20 12:03 Dose: 50 mg Documented by: [id number] Admin: 04/18/20 23:20 Dose: 50 mg Documented by: [id number] Ondansetron HCl (Zofran) 4 mg IV Q6H PRN PRN Reason: Nausea Stop: 05/18/20 21:52 Last Admin: 04/19/20 01:59 Dose: 4 mg Documented by: [id number] Pantoprazole Sodium (Protonix) 40 mg PO BID [facility] Stop: 05/19/20 20:59 Last Admin: 04/20/20 20:54 Dose: 40 mg Documented by: [id number] Admin: 04/20/20 10:33 Dose: 40 mg Documented by: [id number] Admin: 04/19/20 21:00 Dose: 40 mg Documented by: [id number] Potassium Chloride (Klor-Con M10) 10 meq PO QAM [facility] Stop: 05/19/20 08:59 Last Admin: 04/20/20 10:32 Dose: 10 meq Documented by: [id number] Admin: 04/19/20 12:01 Dose: 10 meq Documented by: [id number] Simethicone (Mylicon) 80 mg PO QID [facility] Stop: 05/18/20 21:52 Last Admin: 04/20/20 20:53 Dose: 80 mg Documented by: [id number] Admin: 04/20/20 16:40 Dose: 80 mg Documented by: [id number] Admin: 04/20/20 14:09 Dose: 80 mg Documented by: [id number] Admin: 04/20/20 10:32 Dose: 80 mg Documented by: [id number] Admin: 04/19/20 21:01 Dose: 80 mg Documented by: [id number] Admin: 04/19/20 17:46 Dose: 80 mg Documented by: [id number] Admin: 04/19/20 13:04 Dose: Not Given Documented by: [id number] Admin: 04/19/20 12:02 Dose: 80 mg Documented by: [id number] Admin: 04/18/20 23:20 Dose: 80 mg Documented by: [id number] Sodium Chloride (Sodium Chlor 7% Neb Solution) 3 ml INH QIDR [facility] Stop: 05/19/20 06:59 Last Admin: 04/20/20 19:05 Dose: 3 ml Documented by: [id number] Admin: 04/20/20 15:04 Dose: 3 ml Documented by: [id number] Admin: 04/20/20 11:30 Dose: 3 ml Documented by: [id number] Admin: 04/20/20 06:55 Dose: 3 ml Documented by: [id number] Admin: 04/19/20 19:03 Dose: 3 ml Documented by: [id number] Admin: 04/19/20 15:09 Dose: 3 ml Documented by: [id number] Admin: 04/19/20 11:13 Dose: 3 ml Documented by: [id number] Admin: 04/19/20 07:27 Dose: 3 ml Documented by: [id number] Sucralfate (Carafate) 1 gm PO ACHS [facility] Stop: 05/19/20 12:59 Last Admin: 04/20/20 20:53 Dose: 1 gm Documented by: [id number] Admin: 04/20/20 16:37 Dose: 1 gm Documented by: [id number] Admin: 04/20/20 11:00 Dose: Not Given Documented by: [id number] Admin: 04/20/20 10:35 Dose: 1 gm Documented by: [id number] Admin: 04/19/20 21:01 Dose: 1 gm Documented by: [id number] Admin: 04/19/20 17:46 Dose: 1 gm Documented by: [id number] Admin: 04/19/20 14:49 Dose: 1 gm Documented by: [id number] Venlafaxine HCl (Effexor Extended Release) 75 mg PO BID [facility] Stop: 05/18/20 21:52 Last Admin: 04/20/20 20:54 Dose: 75 mg Documented by: [id number] Admin: 04/20/20 10:33 Dose: 75 mg Documented by: [id number] Admin: 04/19/20 21:01 Dose: 75 mg Documented by: [id number] Admin: 04/19/20 12:02 Dose: 75 mg Documented by: [id number] Admin: 04/18/20 23:19 Dose: 75 mg Documented by: [id number] Discontinued Medications Famotidine (Pepcid 20mg Iv Push) 20 mg IV ONE STA Stop: 04/18/20 14:45 Last Admin: 04/18/20 15:25 Dose: 20 mg Documented by: [id number] Lorazepam (Ativan) 0.25 mg in 0.5 mls @ 0.5 mls/min IV NOW STA Stop: 04/18/20 14:34 Last Admin: 04/18/20 14:49 Dose: 0.5 mls/min Documented by: [id number] Lorazepam (Ativan) 0.25 mg in 0.5 mls @ 0.5 mls/min IV NOW STA Stop: 04/18/20 15:12 Last Admin: 04/18/20 15:31 Dose: 0.5 mls/min Documented by: [id number] Acetaminophen (Ofirmev) 1,000 mg in 100 mls @ 400 mls/hr IV NOW STA Stop: 04/18/20 16:12 Last Infusion: 04/18/20 16:29 Dose: 0 mls/hr Documented by: [id number] Admin: 04/18/20 16:11 Dose: 400 mls/hr Documented by: [id number] Vancomycin HCl 1,000 mg/ (Sodium Chloride) 520 mls @ 200 mls/hr IV NOW ONE Stop: 04/18/20 21:09 Last Infusion: 04/18/20 23:13 Dose: 0 mls/hr Documented by: [id number] Admin: 04/18/20 19:59 Dose: 200 mls/hr Documented by: [id number] Levofloxacin/Dextrose (Levaquin/D5w) 750 mg in 150 mls @ 100 mls/hr IV Q24H [facility] Stop: 04/25/20 18:44 Last Infusion: 04/18/20 23:12 Dose: 0 mls/hr Documented by: [id number] Admin: 04/18/20 20:49 Dose: 100 mls/hr Documented by: [id number] Sodium Chloride (Nss) 500 mls @ 50 mls/hr IV .Q10H [facility] Stop: 04/19/20 20:44 Last Infusion: 04/19/20 23:07 Dose: 0 mls/hr Documented by: [id number] Admin: 04/19/20 12:49 Dose: 50 mls/hr Documented by: [id number] Pantoprazole [facility] ([facility]ix) [facility] Stop: 05/19/20 08:59 Last Admin: 04/19/20 12:01 Dose: 40 mg Documented by: [id number] Medical Decision Making Differential Diagnosis Differential diagnoses includes but is not limited to pneumonia, bronchitis, COPD/Asthma exacerbation, pneumothorax, pulmonary embolism, congestive heart failure, acute coronary syndrome Medical Records Attestation: I reviewed the patient's medical records. Home Medications Current Medication List: was personally reviewed by wv Laboratory Data Attestation: I reviewed the patient's lab results. Result diagrams: 04/19/20 05:44 04/20/20 05:30 Lab Results 04/18/20 04/18/20 04/18/20 Range/Units 14:42 14:42 14:42 WBC 8.93 (4.8-10.8) K/uL RBC 4.76 (4.2-5.4) M/uL Hgb 13.2 (12.0-16.0) g/dL Hct 42.8 (37-47) % MCV 89.9 (80-100) fL MCH 27.7 (25-34) pg MCHC 30.8 L (32-36) g/dL RDW Std Deviation 49.1 H (36.4-46.3) fL RDW Coeff of Eleazar 15.1 H (11.5-14.5) % Plt Count 220 (130-400) K/uL MPV 9.9 (7.4-10.4) fL Immature Gran % (Auto) 0.2 % Neut % (Auto) 63.9 % Lymph % (Auto) 22.5 % [place] % (Auto) 8.4 % Eos % (Auto) 4.9 % Baso % (Auto) 0.1 % Immature Gran # (Auto) 0.02 (0.00-0.02) K/uL Neut # (Auto) 5.70 (1.4-6.5) K/uL Lymph # (Auto) 2.01 (1.2-3.4) K/uL [place] # (Auto) 0.75 H (0.11-0.59) K/uL Eos # (Auto) 0.44 (0-0.5) K/uL Baso # (Auto) 0.01 (0-0.2) K/uL Sodium 139 (136-145) mmol/L Potassium 3.9 (3.5-5.1) mmol/L Chloride 104 (98-107) mmol/L Carbon Dioxide 28 (21-32) mmol/L Anion Gap 7.0 (3-11) BUN 14 (7-18) mg/dl Creatinine 1.24 H (0.6-1.2) mg/dl Est Cr Clr Drug Dosing 31.2 ml/min Est GFR ( Amer) 51.7 Est GFR (Non-Af Amer) 44.6 BUN/Creatinine Ratio 11.3 (10-20) Glucose 87 (70-99) mg/dl Lactate 2.9 H* (0.4-2.0) mmol/L Calcium 9.4 (8.5-10.1) mg/dl Phosphorus (2.5-4.9) mg/dl Magnesium 2.5 H (1.8-2.4) mg/dl Total Bilirubin 0.2 (0.2-1) mg/dl AST 14 L (15-37) U/L ALT 23 (12-78) U/L Alkaline Phosphatase 82 (45-117) U/L Troponin I < 0.015 (0-0.045) ng/ml NT-Pro-B Natriuret Pep 264 (0-900) pg/ml Total Protein 7.3 (6.4-8.2) gm/dl Albumin 3.6 (3.4-5.0) gm/dl Globulin 3.7 (2.5-4.0) gm/dl Albumin/Globulin Ratio 1.0 (0.9-2) Procalcitonin (0-0.5) ng/ml COVID-19 PCR (Negative) 04/18/20 04/18/20 04/18/20 Range/Units 14:42 14:42 19:17 WBC (4.8-10.8) K/uL RBC (4.2-5.4) M/uL Hgb (12.0-16.0) g/dL Hct (37-47) % MCV (80-100) fL MCH (25-34) pg MCHC (32-36) g/dL RDW Std Deviation (36.4-46.3) fL RDW Coeff of Eleazar (11.5-14.5) % Plt Count (130-400) K/uL MPV (7.4-10.4) fL Immature Gran % (Auto) % Neut % (Auto) % Lymph % (Auto) % [place] % (Auto) % Eos % (Auto) % Baso % (Auto) % Immature Gran # (Auto) (0.00-0.02) K/uL Neut # (Auto) (1.4-6.5) K/uL Lymph # (Auto) (1.2-3.4) K/uL [place] # (Auto) (0.11-0.59) K/uL Eos # (Auto) (0-0.5) K/uL Baso # (Auto) (0-0.2) K/uL Sodium (136-145) mmol/L Potassium (3.5-5.1) mmol/L Chloride (98-107) mmol/L Carbon Dioxide (21-32) mmol/L Anion Gap (3-11) BUN (7-18) mg/dl Creatinine (0.6-1.2) mg/dl Est Cr Clr Drug Dosing ml/min Est GFR ( Amer) Est GFR (Non-Af Amer) BUN/Creatinine Ratio (10-20) Glucose (70-99) mg/dl Lactate 0.8 (0.4-2.0) mmol/L Calcium (8.5-10.1) mg/dl Phosphorus 2.6 (2.5-4.9) mg/dl Magnesium (1.8-2.4) mg/dl Total Bilirubin (0.2-1) mg/dl AST (15-37) U/L ALT (12-78) U/L Alkaline Phosphatase (45-117) U/L Troponin I (0-0.045) ng/ml NT-Pro-B Natriuret Pep (0-900) pg/ml Total Protein (6.4-8.2) gm/dl Albumin (3.4-5.0) gm/dl Globulin (2.5-4.0) gm/dl Albumin/Globulin Ratio (0.9-2) Procalcitonin < 0.05 (0-0.5) ng/ml COVID-19 PCR (Negative) 04/18/20 Range/Units 19:21 WBC (4.8-10.8) K/uL RBC (4.2-5.4) M/uL Hgb (12.0-16.0) g/dL Hct (37-47) % MCV (80-100) fL MCH (25-34) pg MCHC (32-36) g/dL RDW Std Deviation (36.4-46.3) fL RDW Coeff of Eleazar (11.5-14.5) % Plt Count (130-400) K/uL MPV (7.4-10.4) fL Immature Gran % (Auto) % Neut % (Auto) % Lymph % (Auto) % [place] % (Auto) % Eos % (Auto) % Baso % (Auto) % Immature Gran # (Auto) (0.00-0.02) K/uL Neut # (Auto) (1.4-6.5) K/uL Lymph # (Auto) (1.2-3.4) K/uL [place] # (Auto) (0.11-0.59) K/uL Eos # (Auto) (0-0.5) K/uL Baso # (Auto) (0-0.2) K/uL Sodium (136-145) mmol/L Potassium (3.5-5.1) mmol/L Chloride (98-107) mmol/L Carbon Dioxide (21-32) mmol/L Anion Gap (3-11) BUN (7-18) mg/dl Creatinine (0.6-1.2) mg/dl Est Cr Clr Drug Dosing ml/min Est GFR ( Amer) Est GFR (Non-Af Amer) BUN/Creatinine Ratio (10-20) Glucose (70-99) mg/dl Lactate (0.4-2.0) mmol/L Calcium (8.5-10.1) mg/dl Phosphorus (2.5-4.9) mg/dl Magnesium (1.8-2.4) mg/dl Total Bilirubin (0.2-1) mg/dl AST (15-37) U/L ALT (12-78) U/L Alkaline Phosphatase (45-117) U/L Troponin I (0-0.045) ng/ml NT-Pro-B Natriuret Pep (0-900) pg/ml Total Protein (6.4-8.2) gm/dl Albumin (3.4-5.0) gm/dl Globulin (2.5-4.0) gm/dl Albumin/Globulin Ratio (0.9-2) Procalcitonin (0-0.5) ng/ml COVID-19 PCR NEGATIVE (Negative) Imaging Data Radiologist's Impression: CT angio chest PE protocol CT DOSE: 201.28 mGy.cm HISTORY: Dyspnea PE; s/p esoph dilat on Sunday; hx lung ca TECHNIQUE: Multiaxial CT images of the chest were performed following the intravenous administration of contrast to evaluate the pulmonary arteries. Maximal intensity projection images were also obtained. A dose lowering technique was utilized adhering to the principles of ALARA. COMPARISON STUDY: 12/31/2019 FINDINGS: No evidence for pulmonary embolus. Pulmonary vasculature enhances appropriately. Moderate atherosclerotic change thoracic aorta. Superimposed left and to a lesser extent right basilar infiltrate upon pre- existing chronic fibrotic change. Diffuse baseline emphysematous changes similar. IMPRESSION: 1. No evidence of pulmonary embolus. 2. Emphysematous change. 3. Parenchymal infiltrative changes left and to a lesser extent right base superimposed upon chronic parenchymal fibrotic change. ACT 112: Negative or not required by law. The above report was generated using voice recognition software. It may contain grammatical, syntax or spelling errors. Electronically signed by: Kain Cruz M.D. 04/18/2020 5:57 PM ECG Data Attestation: I personally reviewed and interpreted this ECG as follows: Indication: + SOB/dyspnea Rate (beats per minute): 98 Rhythm: + normal sinus ECG Intervals/blocks: + Normal QRS and + Normal QT ECG [place]: + Normal ECG ST segments: + Normal ST segments Blood Pressure Blood Pressure Findings: Elevated blood pressure Blood Pressure Disposition: further management by hospitalist KAYLEY Narrative Pt here with significant sob and tachypnea, and discharge from her trach. RT was able to assist in trach care and suctioned a large mucous plug out of her airway. Pt asked for ativan and was given some. Pt's breathing improved. Pt continued to be monitored. No hypoxia, RR improved. Due to significant and prior hx pt sent for CT imaging. CT revealed b/l LL pneumonia, no PE. Pt covered with antibiotics and blood cultures added. VS otw stable. COVID added due to residence in a NH with known positives and pt high risk. Pt's other labs reassuring. Case discussed with hospitalist for additional monitoring an tx. An order was placed for continuous cardiac monitoring. The monitor shows a rate of 80_ with _normal sinus_ rhythm. Impression & Plan Pneumonia, COPD exacerbation, Tracheostomy present Discharge Plan Visit Data *Final* Discharge Date/Time: 04/18/20 21:16 Chief Complaint: Shortness of Breath/Dyspnea Stated Complaint: sob / [facility] ED Provider: Abby Cameron Discharge Problem: Pneumonia, COPD exacerbation, Tracheostomy present Patient Disposition: Admitted As Inpatient Discharge Instructions Interventions: ED Discharge Assessment Last Done: 04/18/20 21:16 Discharge Problem: Pneumonia Qualifiers: Pneumonia type: due to unspecified organism Laterality: bilateral Lung location: lower lobe of lung Qualified Code(s): J18.9 - Pneumonia, unspecified organism
[2020-04-18 15:12] LABS: Alanine Aminotransferase 23 U/L (12-78); Albumin Level 3.6 gm/dl (3.4-5.0); Aspartate Aminotransferase 14 U/L (15-37); BUN Creatinine Ratio 11.3 (10-20); Blood Urea Nitrogen 14 mg/dl (7-18); Calcium 9.4 mg/dl (8.5-10.1); Carbon Dioxide 28 mmol/L (21-32); Chloride 104 mmol/L (98-107); Creatinine Clr Calc Pharmacy 31.2 ml/min; Est GFR (African American) 51.7; Est GFR (Non-African American) 44.6; Glucose 87 mg/dl (70-99); Magnesium 2.5 mg/dl (1.8-2.4); Potassium 3.9 mmol/L (3.5-5.1); Sodium 139 mmol/L (136-145)
[2020-04-18 15:16] LABS: Alkaline Phosphatase 82 U/L (45-117); Bilirubin,Total 0.2 mg/dl (0.2-1); Globulin 3.7 gm/dl (2.5-4.0); NT Pro B Type Natriuretic Pept 264 pg/ml (0-900); Total Protein 7.3 gm/dl (6.4-8.2); Troponin I < 0.015 ng/ml (0-0.045)
--- NOTE | 2020-04-18 15:31 | XRay Report ---
XR chest 1V portable CLINICAL HISTORY: sob dyspnea COMPARISON STUDY: 01/05/2020 FINDINGS: Interstitial infiltrate left base. Moderate baseline emphysematous change. Chronic parenchy mal changes right base. No significant cardiac enlargement. Small fixed hiatal hernia. IMPRESSION: 1. Interstitial infiltrate left base. 2. Chronic changes as noted. ACT 112: Negative or not required by law. The above report was generated using voice recognition software. It may contain grammatical, syntax or spelling errors. Electronically signed by: Kain Cruz M.D. 04/18/2020 3:30 PM
[2020-04-18] MEDS ORDERED: ACETAMINOPHEN 1,000 MG/100 ML VIAL IV STA (15:58)
[2020-04-18] MEDS ORDERED: OPTIRAY 320 125ml IV PRN (17:12)
--- NOTE | 2020-04-18 17:58 | CT Scan Report ---
CT angio chest PE protocol CT DOSE: 201.28 mGy.cm HISTORY: Dyspnea PE; s/p esoph dilat on Sunday; hx lung ca TECHNIQUE: Multiaxial CT images of the chest were performed following the intravenous administration of contrast to evaluate the pulmonary arteries. Maximal intensity projection images were also obtaine d. A dose lowering technique was utilized adhering to the principles of ALARA. COMPARISON STUDY: 12/31/2019 FINDINGS: No evidence for pulmonary embolus. Pulmonary vasculature enhances appropriately. Moderate atherosclerotic change thoracic aorta. Superimposed left and to a lesser extent right basilar infiltrate upon pre-existing chronic fibrotic change. Diffuse baseline emphysematous changes similar. IMPRESSION: 1. No evidence of pulmonary embolus. 2. Emphysematous change. 3. Parenchymal infiltrative changes left and to a lesser extent right base superimposed upon chronic parenchymal fibrotic change. ACT 112: Negative or not required by law. The above report was generated using voice recognition software. It may contain grammatical, syntax or spelling errors. Electronically signed by: Kain Cruz M.D. 04/18/2020 5:57 PM
[2020-04-18] MEDS ORDERED: VANCOMYCIN CONSULT ACTIVE PRN ×2 (18:34→21:53)
[2020-04-18] MEDS ORDERED: VANCOMYCIN HCL 1,000 MG in SODIUM CHLORIDE 0.9% 500 ML IV ONE (18:34)
[2020-04-18] MEDS ORDERED: LEVOFLOXACIN/D5W 750 MG/150 ML BAG IV SCH (18:45)
--- NOTE | 2020-04-18 20:37 | History & Physical Report ---
Date of Service April 18, 2020 Assessment & Plan (1) Pneumonia: Afebrile, HD stable, respiratory status improved. Imaging with parenchymal infiltrative changes left lung base. [id number] sent from ER and negative -Follow cultures -Vancomycin and Cefepime -Tylenol PRN -Guaifenasin q12 hrs Present on Admission?: Yes (2) Shortness of breath: Most likely secondary to mucus plugging, infection, underlying COPD -humidify O2 -trach care q shift Present on Admission?: Yes (3) Anemia: Chronic. Stable. No active bleeding -COntinue B12 and iron Present on Admission?: Yes (4) Anxiety: Chronic. Stable -Contineu Venlafaxine -Continue Buspirone -Ativan PRN at home dose Present on Admission?: Yes (5) COPD (chronic obstructive pulmonary disease): Does not appear to be in acute exacerbation -Continue home management, po prednisone, Pulmicort, Albuterol, Formoterol -Supplemental O2 as needed Present on Admission?: Yes (6) GERD (gastroesophageal reflux disease): Chronic. Stable -Continue Pepcid 20mg po BID -Protonix 40mg po daily Present on Admission?: Yes (7) Hypertension: Blood pressure stable -Continue Metoprolol -Continue to monitor (8) Hypothyroidism: Chronic. -Continue Synthroid F/E/N - Heplock. Monitor electroltyes. 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 She presents from [facility] with complaint of worsening shortness of breath. She had an esophageal dilatation performed by GI on Sunday, since then she complains of her throat closing and pain in her right neck. In the ER patient was seen manually removing large amounts of thickened secretions from her stoma. She was evaluated by RT with stoma care and suction performed with removal of a very large mucus plug. Respiratory status improved. Patient complaining of pain in her right neck as well as a headache. ER Course: Tylenol, Pepcid, Levaquin, Ativan, Vancomycin Allergies Allergy/AdvReac Type Severity Reaction Status Date / Time alendronate sodium Allergy U UNK Verified 04/18/20 15:39 penicillin V Allergy U UNK Verified 04/18/20 15:39 sulfadiazine Allergy U Unknown Verified 04/18/20 15:39 Home Medications Home Medications Medication Instructions Recorded Confirmed Type Cepacol Sore Throat (luiza-men) 1 flo PO Q4H PRN 07/29/19 04/18/20 History aspirin 81 mg PO QAM 07/29/19 04/18/20 History bismuth subsalicylate 525 mg PO Q6H PRN 07/29/19 04/18/20 History buspirone 15 mg PO TID 07/29/19 04/18/20 History Magic Swizzle 20 ml PO QID 07/30/19 04/18/20 History simethicone [Gas Relief 80 80 mg PO QID 07/30/19 04/18/20 History (simethicone)] prednisone 10 mg PO QAM 08/21/19 04/18/20 History potassium chloride [Klor-Con M10] 10 meq PO QAM 09/19/19 04/18/20 History alum-mag hydroxide-simeth [Maalox 30 ml PO Q8H PRN 10/23/19 04/18/20 History Advanced] docusate sodium 100 mg capsule 200 mg PO HS cap 12/02/19 04/18/20 History Saline Solution 12/31/19 12/31/19 History Systane (propylene glycol) 1 drp OPHTHALMIC (EYE) Q6 PRN 12/31/19 04/18/20 History furosemide 20 mg PO QAM 12/31/19 04/18/20 History loratadine [Claritin] 10 mg PO QAM 12/31/19 04/18/20 History lorazepam [Ativan] 0.5 mg PO Q12 PRN 12/31/19 04/18/20 History metoprolol tartrate 50 mg PO BID 12/31/19 04/18/20 History sodium chloride 3 ml INHALATION QID 12/31/19 04/18/20 History venlafaxine 75 mg PO BID 12/31/19 04/18/20 History budesonide 0.5 mg INHALATION BIDR #60 ml 01/04/20 04/18/20 Rx multivitamin 1 tab PO QAM #30 tab 01/04/20 04/18/20 Rx acetaminophen 650 mg PO Q6 PRN 04/09/20 04/18/20 History famotidine 20 mg PO BID 04/09/20 04/18/20 History ferrous sulfate 325 mg PO QAM 04/09/20 04/18/20 History levothyroxine 125 mcg PO QAM 04/09/20 04/18/20 History pantoprazole [Protonix] 40 mg PO QAM 04/09/20 04/18/20 History cyanocobalamin (vitamin B-12) 1,000 mcg PO QAM 04/18/20 04/18/20 History formoterol fumarate 20 mcg INHALATION BID 04/18/20 04/18/20 History Past Med/Surg History Medical History (Updated 04/19/20 @ 02:53 by Chichi Veloz DO) Anemia Cancer HX lung and laryngeal cancer Chronic pain syndrome Chronic respiratory failure (Acute) Constipation COPD (chronic obstructive pulmonary disease) Depression with anxiety Dysphagia Elevated hemidiaphragm GERD (gastroesophageal reflux disease) History of breast cancer (Acute) History of ETOH abuse (Acute) History of pneumonia (Acute) aspiration pneumonia in left lower lobe History of radiation therapy Larynx: 02/25/09 - 04/09/09 Hyperlipemia Hypertension Hypothyroidism Insomnia Lactose intolerance (Acute) 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 Dr. Jin in MAIN OR. Lightly sedated patient, suctioned stoma and placed 6.0 ETT through stoma. Secured in place. General with SEVO. History of esophagogastroduodenoscopy (EGD) with steroid injection, esophageal stricture dilation History of laryngectomy 2009 History of radical neck dissection 2009 History of ventral hernia repair (Acute) Tracheostomy status Social History Preferred Language: Faroese Communication Ability: Impaired Visual Impairment: Limited Hearing Ability: Normal After School Coordinator Required: No Beliefs That Will Affect Care: None marital status: Current Living Situation: Longterm Current Living Situation Comment: [facility] current occupational status: retired current occupation: Retired Feels Safe at Home: Yes Safety Concerns: Feels Safe At This Time Smoking Status: Former smoker Tobacco Type: cigarettes ; Cigarettes Per Day: UP TO 60 ; Second Hand Exposure: No ; Hx Alcohol Use: No Hx Substance Use: No caffeine: Yes (0-1 cup / day ) during the past year weight has: remained stable Review of Systems Review of Systems: All systems reviewed & are unremarkable except as noted in Subjective Physical Exam Physical Exam: General: patient resting comfortably, NAD, non-toxic in appearance Skin: warm, dry, no rash HEENT: NC/AT, PERRL, EOMI, anicteric sclera, conjunctiva without injection, external ear normal to inspection and nontender, nares patent, dry mucus membranes, tracheal stoma with no bleeding/erythema or discharge, TC in place, neck supple, trachea midline, no LAD, no thyromegaly, no JVD Heart: +S1/S2, regular, no m/r/g Lungs: equal air entry bilaterally, no rales/rhonchi/wheezes Abd: +BS, soft, NT/ND, no masses/organomegaly/ascites Ext: warm, 2+ pulses in UE/LE bilaterally, no clubbing/cyanosis or edema Neuro: nonfocal, patient AA&O x 4, speech intact, no facial droop, moving all extremities on command with equal strength 5/5 Results & Data Results & Data ([facility]) Vital Signs (Past 12 Hours) Vital Signs Temp Pulse Resp BP Pulse Ox 04/18/20 20:01 90 21 04/18/20 20:00 88 21 130/113 H 04/18/20 19:31 85 22 100 04/18/20 19:30 85 26 H 113/80 97 04/18/20 19:00 83 22 04/18/20 18:31 85 20 04/18/20 18:30 85 31 H 97/55 L 04/18/20 18:01 91 H 23 99 04/18/20 18:00 88 23 100/68 100 04/18/20 17:31 86 23 04/18/20 17:30 83 20 104/63 97 04/18/20 17:01 96 H 22 92 04/18/20 17:00 92 H 22 118/70 98 04/18/20 16:31 92 H 30 H 99 04/18/20 16:30 88 29 H 119/65 99 04/18/20 16:01 95 H 29 H 97 04/18/20 16:00 99 H 25 H 114/70 96 04/18/20 15:54 100 H 36 H 108/64 99 04/18/20 15:31 99 H 31 H 92 04/18/20 15:30 96 H 28 H 95/74 L 92 04/18/20 15:02 86 25 H 113/84 04/18/20 15:00 103 H 23 96 04/18/20 14:36 37.3 C 116 H 30 H 147/110 H 100 04/18/20 14:35 100 04/18/20 14:31 118 H 20 100 04/18/20 14:30 121 H 23 140/106 H 95 04/18/20 14:29 111 H 28 H 147/110 H 93 04/18/20 14:27 117 H 23 04/18/20 13:36 125 H 21 134/76 Laboratory Results Lab Results 04/18/20 04/18/20 04/18/20 Range/Units 14:42 14:42 14:42 WBC 8.93 (4.8-10.8) K/uL RBC 4.76 (4.2-5.4) M/uL Hgb 13.2 (12.0-16.0) g/dL Hct 42.8 (37-47) % MCV 89.9 (80-100) fL MCH 27.7 (25-34) pg MCHC 30.8 L (32-36) g/dL RDW Std Deviation 49.1 H (36.4-46.3) fL RDW Coeff of Eleazar 15.1 H (11.5-14.5) % Plt Count 220 (130-400) K/uL MPV 9.9 (7.4-10.4) fL Immature Gran % (Auto) 0.2 % Neut % (Auto) 63.9 % Lymph % (Auto) 22.5 % [place] % (Auto) 8.4 % Eos % (Auto) 4.9 % Baso % (Auto) 0.1 % Immature Gran # (Auto) 0.02 (0.00-0.02) K/uL Neut # (Auto) 5.70 (1.4-6.5) K/uL Lymph # (Auto) 2.01 (1.2-3.4) K/uL [place] # (Auto) 0.75 H (0.11-0.59) K/uL Eos # (Auto) 0.44 (0-0.5) K/uL Baso # (Auto) 0.01 (0-0.2) K/uL Sodium 139 (136-145) mmol/L Potassium 3.9 (3.5-5.1) mmol/L Chloride 104 (98-107) mmol/L Carbon Dioxide 28 (21-32) mmol/L Anion Gap 7.0 (3-11) BUN 14 (7-18) mg/dl Creatinine 1.24 H (0.6-1.2) mg/dl Est Cr Clr Drug Dosing 31.2 ml/min Est GFR ( Amer) 51.7 Est GFR (Non-Af Amer) 44.6 BUN/Creatinine Ratio 11.3 (10-20) Glucose 87 (70-99) mg/dl Lactate 2.9 H* (0.4-2.0) mmol/L Calcium 9.4 (8.5-10.1) mg/dl Phosphorus (2.5-4.9) mg/dl Magnesium 2.5 H (1.8-2.4) mg/dl Total Bilirubin 0.2 (0.2-1) mg/dl AST 14 L (15-37) U/L ALT 23 (12-78) U/L Alkaline Phosphatase 82 (45-117) U/L Troponin I < 0.015 (0-0.045) ng/ml NT-Pro-B Natriuret Pep 264 (0-900) pg/ml Total Protein 7.3 (6.4-8.2) gm/dl Albumin 3.6 (3.4-5.0) gm/dl Globulin 3.7 (2.5-4.0) gm/dl Albumin/Globulin Ratio 1.0 (0.9-2) Procalcitonin (0-0.5) ng/ml Nasal Screen MRSA (PCR) (Negative) COVID-19 PCR (Negative) 04/18/20 04/18/20 04/18/20 Range/Units 14:42 14:42 19:17 WBC (4.8-10.8) K/uL RBC (4.2-5.4) M/uL Hgb (12.0-16.0) g/dL Hct (37-47) % MCV (80-100) fL MCH (25-34) pg MCHC (32-36) g/dL RDW Std Deviation (36.4-46.3) fL RDW Coeff of Eleazar (11.5-14.5) % Plt Count (130-400) K/uL MPV (7.4-10.4) fL Immature Gran % (Auto) % Neut % (Auto) % Lymph % (Auto) % [place] % (Auto) % Eos % (Auto) % Baso % (Auto) % Immature Gran # (Auto) (0.00-0.02) K/uL Neut # (Auto) (1.4-6.5) K/uL Lymph # (Auto) (1.2-3.4) K/uL [place] # (Auto) (0.11-0.59) K/uL Eos # (Auto) (0-0.5) K/uL Baso # (Auto) (0-0.2) K/uL Sodium (136-145) mmol/L Potassium (3.5-5.1) mmol/L Chloride (98-107) mmol/L Carbon Dioxide (21-32) mmol/L Anion Gap (3-11) BUN (7-18) mg/dl Creatinine (0.6-1.2) mg/dl Est Cr Clr Drug Dosing ml/min Est GFR ( Amer) Est GFR (Non-Af Amer) BUN/Creatinine Ratio (10-20) Glucose (70-99) mg/dl Lactate 0.8 (0.4-2.0) mmol/L Calcium (8.5-10.1) mg/dl Phosphorus 2.6 (2.5-4.9) mg/dl Magnesium (1.8-2.4) mg/dl Total Bilirubin (0.2-1) mg/dl AST (15-37) U/L ALT (12-78) U/L Alkaline Phosphatase (45-117) U/L Troponin I (0-0.045) ng/ml NT-Pro-B Natriuret Pep (0-900) pg/ml Total Protein (6.4-8.2) gm/dl Albumin (3.4-5.0) gm/dl Globulin (2.5-4.0) gm/dl Albumin/Globulin Ratio (0.9-2) Procalcitonin < 0.05 (0-0.5) ng/ml Nasal Screen MRSA (PCR) (Negative) COVID-19 PCR (Negative) 04/18/20 04/19/20 Range/Units 19:21 00:00 WBC (4.8-10.8) K/uL RBC (4.2-5.4) M/uL Hgb (12.0-16.0) g/dL Hct (37-47) % MCV (80-100) fL MCH (25-34) pg MCHC (32-36) g/dL RDW Std Deviation (36.4-46.3) fL RDW Coeff of Eleazar (11.5-14.5) % Plt Count (130-400) K/uL MPV (7.4-10.4) fL Immature Gran % (Auto) % Neut % (Auto) % Lymph % (Auto) % [place] % (Auto) % Eos % (Auto) % Baso % (Auto) % Immature Gran # (Auto) (0.00-0.02) K/uL Neut # (Auto) (1.4-6.5) K/uL Lymph # (Auto) (1.2-3.4) K/uL [place] # (Auto) (0.11-0.59) K/uL Eos # (Auto) (0-0.5) K/uL Baso # (Auto) (0-0.2) K/uL Sodium (136-145) mmol/L Potassium (3.5-5.1) mmol/L Chloride (98-107) mmol/L Carbon Dioxide (21-32) mmol/L Anion Gap (3-11) BUN (7-18) mg/dl Creatinine (0.6-1.2) mg/dl Est Cr Clr Drug Dosing ml/min Est GFR ( Amer) Est GFR (Non-Af Amer) BUN/Creatinine Ratio (10-20) Glucose (70-99) mg/dl Lactate (0.4-2.0) mmol/L Calcium (8.5-10.1) mg/dl Phosphorus (2.5-4.9) mg/dl Magnesium (1.8-2.4) mg/dl Total Bilirubin (0.2-1) mg/dl AST (15-37) U/L ALT (12-78) U/L Alkaline Phosphatase (45-117) U/L Troponin I (0-0.045) ng/ml NT-Pro-B Natriuret Pep (0-900) pg/ml Total Protein (6.4-8.2) gm/dl Albumin (3.4-5.0) gm/dl Globulin (2.5-4.0) gm/dl Albumin/Globulin Ratio (0.9-2) Procalcitonin (0-0.5) ng/ml Nasal Screen MRSA (PCR) Negative (Negative) COVID-19 PCR NEGATIVE (Negative) Diagnostic Findings XR chest 1V portable CLINICAL HISTORY: sob dyspnea COMPARISON STUDY: 01/05/2020 FINDINGS: Interstitial infiltrate left base. Moderate baseline emphysematous change. Chronic parenchymal changes right base. No significant cardiac enlargement. Small fixed hiatal hernia. IMPRESSION: 1. Interstitial infiltrate left base. 2. Chronic changes as noted. ACT 112: Negative or not required by law. The above report was generated using voice recognition software. It may contain grammatical, syntax or spelling errors. CT angio chest PE protocol CT DOSE: 201.28 mGy.cm HISTORY: Dyspnea PE; s/p esoph dilat on Sunday; hx lung ca TECHNIQUE: Multiaxial CT images of the chest were performed following the intravenous administration of contrast to evaluate the pulmonary arteries. Maximal intensity projection images were also obtained. A dose lowering technique was utilized adhering to the principles of ALARA. COMPARISON STUDY: 12/31/2019 FINDINGS: No evidence for pulmonary embolus. Pulmonary vasculature enhances appropriately. Moderate atherosclerotic change thoracic aorta. Superimposed left and to a lesser extent right basilar infiltrate upon pre- existing chronic fibrotic change. Diffuse baseline emphysematous changes similar. IMPRESSION: 1. No evidence of pulmonary embolus. 2. Emphysematous change. 3. Parenchymal infiltrative changes left and to a lesser extent right base superimposed upon chronic parenchymal fibrotic change. ACT 112: Negative or not required by law. The above report was generated using voice recognition software. It may contain grammatical, syntax or spelling errors. Electronically signed by: Kain Cruz M.D. 04/18/2020 5:57 PM Dictated: 04/18/[id number] Transcribed: 04/18/201753 Code Status & VTE Plan Code Status FULL CODE VTE Prophylaxis Plan VTE Prophylaxis will be ordered: Yes PG Care Time/CCT Total # of Minutes Spent Total Time Spent with Patient: Total time spent is greater than 50% in coordination of care (as documented) at patient's floor/unit and/or counseling patient: Coding Level of Care Code 23996 Initial Inpt Care Lvl 3 Diagnoses Pneumonia J18.9 Pneumonia type: due to unspecified organism Laterality: left Lung location: lower lobe of lung Shortness of breath R06.02 Anemia D64.9 Anemia type: unspecified type Anxiety F41.9 COPD (chronic obstructive pulmonary disease) J43.9 COPD type: emphysema Emphysema type: unspecified GERD (gastroesophageal reflux disease) K21.9 Esophagitis presence: esophagitis presence not specified Hypertension I10 Hypertension type: essential hypertension Hypothyroidism E03.9 Hypothyroidism type: unspecified (1) Pneumonia Pneumonia type: due to unspecified organism Laterality: left Lung location: lower lobe of lung Qualified Code(s): J18.9 - Pneumonia, unspecified organism (2) Anemia Anemia type: unspecified type Qualified Code(s): D64.9 - Anemia, unspecified (3) COPD (chronic obstructive pulmonary disease) COPD type: emphysema Emphysema type: unspecified Qualified Code(s): J43.9 - Emphysema, unspecified (4) GERD (gastroesophageal reflux disease) Esophagitis presence: esophagitis presence not specified Qualified Code(s): K21.9 - Gastro-esophageal reflux disease without esophagitis (5) Hypertension Hypertension type: essential hypertension Qualified Code(s): I10 - Essential (primary) hypertension (6) Hypothyroidism Hypothyroidism type: unspecified Qualified Code(s): E03.9 - Hypothyroidism, unspecified
[2020-04-18] MEDS: KETOROLAC TROMETHAMINE 15 MG/ML VIAL IV PRN ×2 (20:49→23:21)
[2020-04-18] MEDS ORDERED: BISMUTH SUBSALICYLATE LIQD 236 ML PO PRN (21:53)
[2020-04-18] MEDS ORDERED: MAGIC SWIZZLE PO SCH (21:53)
[2020-04-18] MEDS ORDERED: COUGH DROP (SUGAR FREE) LOZ 24 LOZ/1 BOX BUCCAL PRN (21:53)
[2020-04-18] MEDS ORDERED: DOCUSATE SODIUM 100 MG CAP PO PRN (21:53)
[2020-04-18] MEDS ORDERED: ARTIFICIAL TEARS OP PRN (23:13)
[2020-04-18] MEDS: guaiFENesin 600 MG TABCR PO SCH (23:18)
[2020-04-18] MEDS: FAMOTIDINE 20 MG TAB PO SCH (23:19)
[2020-04-18] MEDS: VENLAFAXINE HCL XR 75 MG CAPXR PO SCH (23:19)
[2020-04-18] MEDS: BusPIRone 15 MG TAB PO SCH (23:19)
[2020-04-18] MEDS: SIMETHICONE 80 MG CHEW PO SCH (23:20)
[2020-04-18] MEDS: METOPROLOL TARTRATE 50 MG TAB PO SCH (23:20)
[2020-04-18] MEDS: ENOXAPARIN INJ 40 MG/0.4 ML SYR SQ SCH (23:20)
[2020-04-18] MEDS: CEFEPIME 2,000 MG in SYRINGE 7.5 ML IV SCH (23:21)
[2020-04-18] MEDS: LORazepam 0.5 MG TAB PO PRN (23:21)
[2020-04-18] MEDS: ALUMINUM/MAGNESIUM SUSP 30 ML UDC PO PRN (23:48)
[2020-04-19] MEDS: ONDANSETRON INJ 2 MG/ML 2 ML VIAL IV PRN (01:59)
--- NOTE | 2020-04-19 05:55 | Electrocardiogram Report ---
Test Reason : Blood Pressure : / mmHG Vent. Rate : 098 BPM Atrial Rate : 098 BPM P-R Int : 100 ms QRS Dur : 066 ms QT Int : 368 ms P-R-T Axes : 047 053 063 degrees QTc Int : 469 ms Poor data quality, interpretation may be adversely affected Sinus rhythm with short HI Otherwise normal ECG When compared with ECG of 16-APR-2020 10:42, Vent. rate has increased BY 33 BPM Confirmed by Rommel Almaraz ([id number]) on 04/19/2020 5:54:49 AM Referred By: REFERRED SELF Confirmed By:Rommel Almaraz
[2020-04-19 05:58] LABS: Basophils # (auto) 0.02 K/uL (0-0.2); Basophils % (auto) 0.3 %; Eosinophils # (auto) 0.61 K/uL (0-0.5); Eosinophils % (auto) 8.2 %; Hematocrit (blood only) 35.8 % (37-47); Hemoglobin 11.1 g/dL (12.0-16.0); Immature Granulocytes # (auto) 0.02 K/uL (0.00-0.02); Immature Granulocytes % (auto) 0.3 %; Lymphocytes % (auto) 16.1 %; Mean Corpuscular Hemoglobin 27.9 pg (25-34); Mean Corpuscular Volume 89.9 fL (80-100); Mean Platelet Volume 9.5 fL (7.4-10.4); Monocytes # (auto) 0.93 K/uL (0.11-0.59); Monocytes % (auto) 12.5 %; Neutrophils # (auto) 4.68 K/uL (1.4-6.5); Neutrophils % (auto) 62.6 %; Platelet Count 176 K/uL (130-400); RDW Standard Deviation 48.6 fL (36.4-46.3); Red Blood Count 3.98 M/uL (4.2-5.4); White Blood Count 7.46 K/uL (4.8-10.8)
[2020-04-19] MEDS: LEVOTHYROXINE SODIUM 125 MCG TABLET PO SCH (06:24)
[2020-04-19 06:44] LABS: BUN Creatinine Ratio 14.5 (10-20); Calcium 8.8 mg/dl (8.5-10.1); Creatinine Clr Calc Pharmacy 35.8 ml/min; Est GFR (African American) 61.1; Est GFR (Non-African American) 52.7
[2020-04-19] MEDS: FORMOTEROL 20 MCG/2 ML VIAL INH SCH ×2 (07:22→19:03)
[2020-04-19] MEDS: BUDESONIDE 0.5 MG/2 ML VIAL (PULMICORT) INH SCH ×2 (07:22→19:03)
[2020-04-19] MEDS: SODIUM CHLOR 7% 4 ML NEB INH SCH ×4 (07:27→19:03)
[2020-04-19] MEDS ORDERED: VANCOMYCIN HCL 1,000 MG in SODIUM CHLORIDE 0.9% 250 ML IV SCH (08:00)
[2020-04-19] MEDS ORDERED: predniSONE 10 MG TABLET PO SCH (09:00)
[2020-04-19] MEDS ORDERED: Magic Swizzle w/ Sucralfate 240mL PO SCH (09:00)
[2020-04-19] MEDS ORDERED: PANTOprazole 40 MG TAB PO SCH (09:00)
--- NOTE | 2020-04-19 10:40 | Hospitalist Progress Note ---
Date of Service April 19, 2020 Assessment & Plan (1) Pneumonia: LLL pneumonia. Lives in SNF and has baseline chronic respiratory failure. Cover for gram negatives with cefepime. Add atypical coverage with doxycycline. MRSA screen negative; will d/c vancomycin. Follow blood cultures. of note - COVID-19 PCR negative. (2) COPD (chronic obstructive pulmonary disease): With acute exacerbation. Start solumedrol 30mg IV BID. Hold po prednisone 10mg/day. Cont regular nebs (pulmicort, etc). Start duonebs q6h. Cont mucomyst and mucinex. Pulmonary toilet. (3) Odynophagia: started after her EGD with dilatation by [facility] last Sunday. EGD report reviewed; had stricture but no other pathology. No candidiasis, etc. speaking valve was in correct position. CT soft tissues neck obtained - no acute pathology; speaking valve properly placed; no abscess, etc. spoke with [facility] - add carafate suspension 1gm QID. I will also increase her PPI to BID dosing. Cont H2 francine as usual. if pain does not improve next 1-2 days then formal GI consult will be requested. (4) Anemia: H/H stable (5) GERD (gastroesophageal reflux disease): cont Pepcid 20mg po BID cont Protonix 40mg but increase to BID dosing (6) Esophageal stricture: s/p dilatation on EGD 04/16/20 ([facility]) (7) Anxiety: Chronic. Stable -Continue Venlafaxine -Continue Buspirone -Ativan PRN (8) Hypertension: Blood pressure stable on metoprolol (9) Hypothyroidism: TSH was elevated in 02/2020 will repeat TSH in am cont levothyroxine at same dose until repeat TSH is back (10) History of laryngectomy: [address] Nicolas Chandra has speaking valve that is exchanged every few months in the office proper position noted on CT today and EGD a few days ago (11) Chronic respiratory failure: on O2 via stoma (12) Chronic kidney disease, stage 3a: baseline CrCL low 30s due to IV contrast for CT will give 50cc/hr of NS for 500cc then saline lock bmp am (13) DVT prophylaxis: lovenox daily Admission and Anticipated Discharge Date Admission Date: April 18, 2020 Subjective patient reports poor appetite at breakfast. she also has pain with swallowing. mentions she had "stretching" of esophagus this past Sunday. since the EGD she has had the pain. she points to the right side of her neck as location of pain. coughing, with some sputum production via stoma. mild dyspnea. also reporting mild upper abdominal pain. denies vomiting. tele normal overnight. Review of Systems Constitutional: no fever and no chills Respiratory: no hemoptysis Cardiovascular: no chest pain Gastrointestinal: no abdominal pain and no diarrhea/loose stools Physical Exam Constitutional: + ill appearing and + frail appearing; no acute distress and no altered mental status ENMT: external ear and nose normal, oropharynx normal Neck: stoma present, clean Respiratory: + cough; no respiratory distress Auscultation: + diminished lung sounds (bases), + crackles (both bases - fine) and + wheezes (end-exp) Cardiovascular: Rate/Rhythm: regular rate and regular rhythm Heart Sounds: normal S1 and normal S2; no murmur Vessels: posterior tibial pulses present and dorsalis pedis pulses present; no JVD Extremities: no edema Gastrointestinal (Abdomen): Inspection/Auscultation: normal bowel sounds; abdomen not distended Percussion/Palpation: + abdomen tender (high epigastric area) and abdomen soft; no hepatosplenomegaly Musculoskeletal: Spine: + kyphosis Psychiatric: Orientation: alert and oriented x 3 Results & Data Results & Data ([facility]) Vital Signs (Past 12 Hours) Vital Signs Temp Pulse Pulse Resp BP Pulse Ox 04/19/20 09:16 72 04/19/20 07:38 36.7 C 120 H 22 120/61 99 04/19/20 07:27 80 20 100 04/19/20 04:40 36.4 C L 75 19 119/74 99 04/19/20 01:07 89 04/19/20 01:02 93 H 04/18/20 22:50 36.3 C L 88 18 115/71 98 Laboratory Results Laboratory Results - last 24 hr 04/18/20 04/18/20 04/18/20 14:42 14:42 14:42 WBC 8.93 RBC 4.76 Hgb 13.2 Hct 42.8 MCV 89.9 MCH 27.7 MCHC 30.8 L RDW Std Deviation 49.1 H RDW Coeff of Eleazar 15.1 H Plt Count 220 MPV 9.9 Immature Gran % (Auto) 0.2 Neut % (Auto) 63.9 Lymph % (Auto) 22.5 Cass % (Auto) 8.4 Eos % (Auto) 4.9 Baso % (Auto) 0.1 Immature Gran # (Auto) 0.02 Neut # (Auto) 5.70 Lymph # (Auto) 2.01 Cass # (Auto) 0.75 H Eos # (Auto) 0.44 Baso # (Auto) 0.01 Sodium 139 Potassium 3.9 Chloride 104 Carbon Dioxide 28 Anion Gap 7.0 BUN 14 Creatinine 1.24 H Est Cr Clr Drug Dosing 31.2 Est GFR ( Amer) 51.7 Est GFR (Non-Af Amer) 44.6 BUN/Creatinine Ratio 11.3 Glucose 87 Lactate 2.9 H* Calcium 9.4 Phosphorus Magnesium 2.5 H Total Bilirubin 0.2 AST 14 L ALT 23 Alkaline Phosphatase 82 Troponin I < 0.015 NT-Pro-B Natriuret Pep 264 Total Protein 7.3 Albumin 3.6 Globulin 3.7 Albumin/Globulin Ratio 1.0 Procalcitonin Nasal Screen MRSA (PCR) Random Vancomycin COVID-19 PCR 04/18/20 04/18/20 04/18/20 14:42 14:42 19:17 WBC RBC Hgb Hct MCV MCH MCHC RDW Std Deviation RDW Coeff of Eleazar Plt Count MPV Immature Gran % (Auto) Neut % (Auto) Lymph % (Auto) Cass % (Auto) Eos % (Auto) Baso % (Auto) Immature Gran # (Auto) Neut # (Auto) Lymph # (Auto) Cass # (Auto) Eos # (Auto) Baso # (Auto) Sodium Potassium Chloride Carbon Dioxide Anion Gap BUN Creatinine Est Cr Clr Drug Dosing Est GFR ( Amer) Est GFR (Non-Af Amer) BUN/Creatinine Ratio Glucose Lactate 0.8 Calcium Phosphorus 2.6 Magnesium Total Bilirubin AST ALT Alkaline Phosphatase Troponin I NT-Pro-B Natriuret Pep Total Protein Albumin Globulin Albumin/Globulin Ratio Procalcitonin < 0.05 Nasal Screen MRSA (PCR) Random Vancomycin COVID-19 PCR 04/18/20 04/19/20 04/19/20 19:21 00:00 05:44 WBC 7.46 RBC 3.98 L Hgb 11.1 L Hct 35.8 L MCV 89.9 MCH 27.9 MCHC 31.0 L RDW Std Deviation 48.6 H RDW Coeff of Eleazar 15.0 H Plt Count 176 MPV 9.5 Immature Gran % (Auto) 0.3 Neut % (Auto) 62.6 Lymph % (Auto) 16.1 Cass % (Auto) 12.5 Eos % (Auto) 8.2 Baso % (Auto) 0.3 Immature Gran # (Auto) 0.02 Neut # (Auto) 4.68 Lymph # (Auto) 1.20 Cass # (Auto) 0.93 H Eos # (Auto) 0.61 H Baso # (Auto) 0.02 Sodium Potassium Chloride Carbon Dioxide Anion Gap BUN Creatinine Est Cr Clr Drug Dosing Est GFR ( Amer) Est GFR (Non-Af Amer) BUN/Creatinine Ratio Glucose Lactate Calcium Phosphorus Magnesium Total Bilirubin AST ALT Alkaline Phosphatase Troponin I NT-Pro-B Natriuret Pep Total Protein Albumin Globulin Albumin/Globulin Ratio Procalcitonin Nasal Screen MRSA (PCR) Negative Random Vancomycin COVID-19 PCR NEGATIVE 04/19/20 04/19/20 04/19/20 05:44 05:44 06:54 WBC RBC Hgb Hct MCV MCH MCHC RDW Std Deviation RDW Coeff of Eleazar Plt Count MPV Immature Gran % (Auto) Neut % (Auto) Lymph % (Auto) Cass % (Auto) Eos % (Auto) Baso % (Auto) Immature Gran # (Auto) Neut # (Auto) Lymph # (Auto) Cass # (Auto) Eos # (Auto) Baso # (Auto) Sodium 142 Potassium 4.8 D Chloride 111 H Carbon Dioxide 30 Anion Gap 1.0 L BUN 16 Creatinine 1.08 Est Cr Clr Drug Dosing 35.8 Est GFR ( Amer) 61.1 Est GFR (Non-Af Amer) 52.7 BUN/Creatinine Ratio 14.5 Glucose 90 Lactate Calcium 8.8 Phosphorus Magnesium Total Bilirubin AST ALT Alkaline Phosphatase Troponin I NT-Pro-B Natriuret Pep Total Protein Albumin Globulin Albumin/Globulin Ratio Procalcitonin Nasal Screen MRSA (PCR) Random Vancomycin 17.1 COVID-19 PCR PG Care Time/CCT Total # of Minutes Spent Total Time Spent with Patient: Total time spent is greater than 50% in coordination of care (as documented) at patient's floor/unit and/or counseling patient: Coding Level of Care Code 95151 Subseq Hosp Care Lvl 3 Diagnoses Pneumonia J18.9 Pneumonia type: due to unspecified organism Laterality: left Lung location: lower lobe of lung COPD (chronic obstructive pulmonary disease) J43.9 COPD type: emphysema Emphysema type: unspecified Odynophagia R13.10 Anemia D64.9 Anemia type: unspecified type GERD (gastroesophageal reflux disease) K21.9 Esophagitis presence: esophagitis presence not specified Esophageal stricture K22.2 Anxiety F41.9 Hypertension I10 Hypertension type: essential hypertension Hypothyroidism E03.9 Hypothyroidism type: unspecified History of laryngectomy Z90.02 Chronic respiratory failure J96.11 Respiratory failure complication: hypoxia Chronic kidney disease, stage 3a N18.3 DVT prophylaxis Z29.9 (1) Pneumonia Pneumonia type: due to unspecified organism Laterality: left Lung location: lower lobe of lung Qualified Code(s): J18.9 - Pneumonia, unspecified organism (2) Anemia Anemia type: unspecified type Qualified Code(s): D64.9 - Anemia, unspecified (3) COPD (chronic obstructive pulmonary disease) COPD type: emphysema Emphysema type: unspecified Qualified Code(s): J43.9 - Emphysema, unspecified (4) GERD (gastroesophageal reflux disease) Esophagitis presence: esophagitis presence not specified Qualified Code(s): K21.9 - Gastro-esophageal reflux disease without esophagitis (5) Hypertension Hypertension type: essential hypertension Qualified Code(s): I10 - Essential (primary) hypertension (6) Hypothyroidism Hypothyroidism type: unspecified Qualified Code(s): E03.9 - Hypothyroidism, u nspecified (7) Chronic respiratory failure Respiratory failure complication: hypoxia Qualified Code(s): J96.11 - Chronic respiratory failure with hypoxia
[2020-04-19] MEDS ORDERED: SODIUM CHLORIDE 0.9% 500 ML IV SCH (10:45)
[2020-04-19] MEDS: ALBUT/IPRATROP 3MG/0.5MG NEB 3 ML VIAL NEB SCH ×3 (11:13→19:04)
[2020-04-19] MEDS ORDERED: IOVERSOL 100ml IV PRN (11:50)
[2020-04-19] MEDS: ASPIRIN 81 MG ECTAB PO SCH (12:01)
[2020-04-19] MEDS: POTASSIUM CHLORIDE 10 MEQ TABCR PO SCH (12:01)
[2020-04-19] MEDS: LORATADINE 10 MG TAB PO SCH (12:01)
[2020-04-19] MEDS: SIMETHICONE 80 MG CHEW PO SCH ×4 (12:02→21:01)
[2020-04-19] MEDS: VENLAFAXINE HCL XR 75 MG CAPXR PO SCH ×2 (12:02→21:01)
[2020-04-19] MEDS: FUROSEMIDE 20 MG TAB PO SCH (12:02)
[2020-04-19] MEDS: BusPIRone 15 MG TAB PO SCH ×3 (12:02→21:01)
[2020-04-19] MEDS: guaiFENesin 600 MG TABCR PO SCH ×2 (12:02→21:01)
[2020-04-19] MEDS: FAMOTIDINE 20 MG TAB PO SCH ×2 (12:02→21:00)
[2020-04-19] MEDS: CYANOCOBALAMIN 500 MCG TABLET (VITAMIN B-12) PO SCH (12:02)
[2020-04-19] MEDS: FERROUS SULFATE 325 MG TAB PO SCH (12:03)
[2020-04-19] MEDS: METOPROLOL TARTRATE 50 MG TAB PO SCH ×2 (12:03→20:43)
[2020-04-19] MEDS: LORazepam 0.5 MG TAB PO PRN (12:09)
[2020-04-19] MEDS: CEFEPIME 2,000 MG in SYRINGE 7.5 ML IV SCH ×2 (12:10→22:35)
[2020-04-19] MEDS: Magic Swizzle w/Glycerin 240mL MT SCH ×4 (12:17→20:53)
--- NOTE | 2020-04-19 12:19 | CT Scan Report ---
CT soft tissue neck w con HISTORY: Tracheoesophageal prosthesis; s/p esophageal dilation; R neck pain TECHNIQUE: Multiaxial CT images of neck were performed following the use of intravenous contrast. COMPARISON STUDY: Neck CT 02/23/2017. FINDINGS: Emphysema within the lung apices. There again noted postoperative changes consistent with l aryngectomy and tracheostomy. There is a small prosthetic plug located between the soft tissues of th e proximal esophagus and roof with a tracheostomy. This is similar to the prior study. Therefore, thi s favors expected postoperative change. Scattered surgical clips seen throughout the neck. No new sof t tissue masses or lymphadenopathy to suggest recurrent/metastatic disease. Moderate calcified plaque within the bilateral carotid siphons and bilateral carotid bifurcations. This results in approximate ly 30% focal narrowing at the origin of the right internal carotid artery. Mild narrowing within the left common carotid artery due to the atherosclerotic plaque. The parotid and submandibular glands ar e symmetric. The orbits and visualized brain parenchyma are unremarkable. Near-complete opacification of the left sphenoid sinus which demonstrates a fluid level and bubbly secretions. The mastoid air c ells are clear. No suspicious lytic are blastic osseous lesions. No pneumomediastinum or fluid collec tions identified. IMPRESSION: 1. Status post laryngectomy. Redemonstration of the small prosthetic plug located between the soft ti ssues of the proximal esophagus and tracheostomy. Given the long-standing stability this favors expec ramez postoperative change. 2. No soft tissue masses to suggest recurrent/metastatic disease. No lymphadenopathy. 3. No fluid collections identified within the neck. No pneumomediastinum. 4. Emphysema. 5. Left-sided sphenoid sinusitis. ACT 112: Negative or not required by law. Electronically signed by: Brennan Naik M.D. 04/19/2020 12:18 PM
[2020-04-19] MEDS: methylPREDNISolone 30 MG in SYRINGE 0 ML IV SCH ×2 (12:49→20:58)
[2020-04-19] MEDS: DOXYCYCLINE HYCLATE 100 MG in DEXTROSE 5% 100 ML IV SCH ×2 (12:49→20:54)
[2020-04-19] MEDS: SUCRALFATE 1 GM/10 ML UDC PO SCH ×3 (14:49→21:01)
[2020-04-19] MEDS: ACETAMINOPHEN 325 MG TAB PO PRN (18:03)
[2020-04-19] MEDS: ALUMINUM/MAGNESIUM SUSP 30 ML UDC PO PRN (20:53)
[2020-04-19] MEDS: KETOROLAC TROMETHAMINE 15 MG/ML VIAL IV PRN (20:53)
[2020-04-19] MEDS: PANTOprazole 40 MG TAB PO SCH (21:00)
[2020-04-19] MEDS: ENOXAPARIN INJ 40 MG/0.4 ML SYR SQ SCH (21:02)
[2020-04-20] MEDS: LORazepam 0.5 MG TAB PO PRN ×2 (00:15→23:28)
[2020-04-20] MEDS: ACETAMINOPHEN 325 MG TAB PO PRN (00:15)
[2020-04-20] MEDS: LEVOTHYROXINE SODIUM 125 MCG TABLET PO SCH (06:21)
[2020-04-20 06:22] LABS: BUN Creatinine Ratio 14.7 (10-20); Calcium 9.3 mg/dl (8.5-10.1); Creatinine Clr Calc Pharmacy 30.5 ml/min; Est GFR (African American) 50.2; Est GFR (Non-African American) 43.3; Potassium 4.6 mmol/L (3.5-5.1)
[2020-04-20] MEDS: BUDESONIDE 0.5 MG/2 ML VIAL (PULMICORT) INH SCH ×2 (06:55→19:05)
[2020-04-20] MEDS: ALBUT/IPRATROP 3MG/0.5MG NEB 3 ML VIAL NEB SCH ×4 (06:55→20:08)
[2020-04-20] MEDS: SODIUM CHLOR 7% 4 ML NEB INH SCH ×4 (06:55→19:05)
[2020-04-20] MEDS: FORMOTEROL 20 MCG/2 ML VIAL INH SCH ×2 (06:55→19:05)
[2020-04-20] MEDS: methylPREDNISolone 30 MG in SYRINGE 0 ML IV SCH ×2 (09:06→20:59)
[2020-04-20] MEDS: DOXYCYCLINE HYCLATE 100 MG in DEXTROSE 5% 100 ML IV SCH ×2 (09:06→20:58)
[2020-04-20] MEDS: guaiFENesin 600 MG TABCR PO SCH ×2 (10:31→20:54)
[2020-04-20] MEDS: BusPIRone 15 MG TAB PO SCH ×3 (10:32→20:54)
[2020-04-20] MEDS: LORATADINE 10 MG TAB PO SCH (10:32)
[2020-04-20] MEDS: ASPIRIN 81 MG ECTAB PO SCH (10:32)
[2020-04-20] MEDS: POTASSIUM CHLORIDE 10 MEQ TABCR PO SCH (10:32)
[2020-04-20] MEDS: SIMETHICONE 80 MG CHEW PO SCH ×4 (10:32→20:53)
[2020-04-20] MEDS: PANTOprazole 40 MG TAB PO SCH ×2 (10:33→20:54)
[2020-04-20] MEDS: METOPROLOL TARTRATE 50 MG TAB PO SCH ×2 (10:33→20:55)
[2020-04-20] MEDS: VENLAFAXINE HCL XR 75 MG CAPXR PO SCH ×2 (10:33→20:54)
[2020-04-20] MEDS: FERROUS SULFATE 325 MG TAB PO SCH (10:34)
[2020-04-20] MEDS: CYANOCOBALAMIN 500 MCG TABLET (VITAMIN B-12) PO SCH (10:34)
[2020-04-20] MEDS: SUCRALFATE 1 GM/10 ML UDC PO SCH ×4 (10:35→20:53)
[2020-04-20] MEDS: FUROSEMIDE 20 MG TAB PO SCH (10:50)
[2020-04-20] MEDS: FAMOTIDINE 20 MG TAB PO SCH ×2 (10:51→20:55)
[2020-04-20] MEDS: Magic Swizzle w/Glycerin 240mL MT SCH ×4 (10:58→20:58)
[2020-04-20] MEDS: CEFEPIME 2,000 MG in SYRINGE 7.5 ML IV SCH ×2 (10:59→23:24)
[2020-04-20] MEDS: LACTOBACILLUS ACIDOPHILUS (FLORANEX) TAB PO SCH ×2 (14:09→16:36)
[2020-04-20] MEDS: KETOROLAC TROMETHAMINE 15 MG/ML VIAL IV PRN (17:02)
--- NOTE | 2020-04-20 17:09 | Hospitalist Progress Note ---
Date of Service April 20, 2020 Assessment & Plan (1) Pneumonia: LLL pneumonia. Improving. Lives in SNF and has baseline chronic respiratory failure. Covering gram negatives with cefepime - day #3. atypical coverage with doxycycline - day #2. blood cultures negative to date. of note - COVID-19 PCR negative. (2) COPD (chronic obstructive pulmonary disease): With acute exacerbation. slowly improving. Solumedrol 30mg IV BID. Day #2 such. no wean today. Hold po prednisone 10mg/day. Cont regular nebs (pulmicort, etc). Cont duonebs q6h. Cont mucomyst and mucinex. Pulmonary toilet. (3) Odynophagia: started after her EGD with dilatation by [facility] last Sunday. EGD report reviewed; had stricture but no other pathology. No candidiasis, etc. speaking valve was in correct position. CT soft tissues neck obtained - no acute pathology; speaking valve properly placed; no abscess, etc. spoke with [facility] - added carafate suspension 1gm QID. seems better today. I also increased her PPI to BID dosing. Cont H2 francine as usual. (4) Anemia: H/H stable (5) GERD (gastroesophageal reflux disease): cont Pepcid, protonix, and carafate (6) Esophageal stricture: s/p dilatation on EGD 04/16/20 ([facility]) (7) Anxiety: Chronic. Stable -Continue Venlafaxine -Continue Buspirone -Ativan PRN (8) Hypertension: Blood pressure stable on metoprolol (9) Hypothyroidism: TSH was elevated in 02/2020 will repeat TSH in am cont levothyroxine at same dose until repeat TSH is back (10) History of laryngectomy: [address] Nicolas Chandra has speaking valve that is exchanged every few months in the office proper position noted on CT soft tissues neck and EGD a few days ago (11) Chronic respiratory failure: on O2 via stoma at baseline back at SNF (12) Chronic kidney disease, stage 3a: baseline CrCL low 30s Cr stable today BMP am (13) DVT prophylaxis: lovenox daily progressing will obtain PT/OT evals Admission and Anticipated Discharge Date Admission Date: April 18, 2020 Subjective patient feeling better today. still coughing and still w/ sputum but symptoms improved. more energy, appetite improved. still w/ mild odynophagia. has abdominal pain - epigastric - chronic - no change in symptoms. Review of Systems Constitutional: no fever Respiratory: no dyspnea Cardiovascular: no chest pain Gastrointestinal: + abdominal pain; no nausea, no vomiting, no constipation and no diarrhea/loose stools Physical Exam Constitutional: + ill appearing (Chronically-ill appearing but acutely looks better today) and + frail appearing; no acute distress and no altered mental status ENMT: external ear and nose normal, oropharynx normal Neck: stoma with mildly yellow sputum Respiratory: + cough; no respiratory distress Auscultation: + diminished lung sounds (bases), + crackles (both bases - fine) and + wheezes (end-exp) airation improved today Cardiovascular: Rate/Rhythm: regular rate and regular rhythm Heart Sounds: normal S1 and normal S2; no murmur Vessels: posterior tibial pulses present and dorsalis pedis pulses present; no JVD Extremities: no edema Gastrointestinal (Abdomen): Inspection/Auscultation: normal bowel sounds; abdomen not distended Percussion/Palpation: + abdomen tender (high epigastric area) and abdomen soft; no hepatosplenomegaly Musculoskeletal: Spine: + kyphosis Psychiatric: Orientation: alert and oriented x 3 Results & Data Results & Data ([facility]) Vital Signs (Past 12 Hours) Vital Signs Temp Pulse Pulse Resp BP BP Pulse Ox 04/20/20 15:21 37.0 C 63 22 108/60 93 04/20/20 11:14 77 18 94 04/20/20 11:00 36.7 C 77 16 123/75 94 04/20/20 07:28 36.7 C 86 18 138/73 99 04/20/20 07:10 90 04/20/20 06:56 86 16 99 Laboratory Results Laboratory Results - last 24 hr 04/20/20 05:30 Sodium 141 Potassium 4.6 Chloride 110 H Carbon Dioxide 27 Anion Gap 4.0 BUN 19 H Creatinine 1.27 H Est Cr Clr Drug Dosing 30.5 Est GFR ( Amer) 50.2 Est GFR (Non-Af Amer) 43.3 BUN/Creatinine Ratio 14.7 Glucose 154 H Calcium 9.3 PG Care Time/CCT Total # of Minutes Spent Total Time Spent with Patient: Total time spent is greater than 50% in coordination of care (as documented) at patient's floor/unit and/or counseling patient: Coding Level of Care Code 08539 Subseq Hosp Care Lvl 2 Diagnoses Pneumonia J18.9 Laterality: left Lung location: lower lobe of lung Pneumonia type: due to unspecified organism COPD (chronic obstructive pulmonary disease) J43.9 COPD type: emphysema Emphysema type: unspecified Odynophagia R13.10 Anemia D64.9 Anemia type: unspecified type GERD (gastroesophageal reflux disease) K21.9 Esophagitis presence: esophagitis presence not specified Esophageal stricture K22.2 Anxiety F41.9 Hypertension I10 Hypertension type: essential hypertension Hypothyroidism E03.9 Hypothyroidism type: unspecified History of laryngectomy Z90.02 Chronic respiratory failure J96.11 Respiratory failure complication: hypoxia Chronic kidney disease, stage 3a N18.3 DVT prophylaxis Z29.9 (1) Chronic respiratory failure Respiratory failure complication: hypoxia Qualified Code(s): J96.11 - Chronic respiratory failure with hypoxia (2) Anemia Anemia type: unspecified type Qualified Code(s): D64.9 - Anemia, unspecified (3) Hypothyroidism Hypothyroidism type: unspecified Qualified Code(s): E03.9 - Hypothyroidism, unspecified (4) COPD (chronic obstructive pulmonary disease) COPD type: emphysema Emphysema type: unspecified Qualified Code(s): J43.9 - Emphysema, unspecified (5) GERD (gastroesophageal reflux disease) Esophagitis presence: esophagitis presence not specified Qualified Code(s): K21.9 - Gastro-esophageal reflux disease without esophagitis (6) Hypertension Hypertension type: essential hypertension Qualified Code(s): I10 - Essential (primary) hypertension (7) Pneumonia Laterality: left Lung location: lower lobe of lung Pneumonia type: due to unspecified organism Qualified Code(s): J18.9 - Pneumonia, unspecified organism
[2020-04-20] MEDS: ENOXAPARIN INJ 40 MG/0.4 ML SYR SQ SCH (20:55)
[2020-04-21] MEDS: LEVOTHYROXINE SODIUM 125 MCG TABLET PO SCH (06:25)
[2020-04-21 06:44] LABS: BUN Creatinine Ratio 19.9 (10-20); Calcium 9.1 mg/dl (8.5-10.1); Creatinine Clr Calc Pharmacy 32.8 ml/min; Est GFR (African American) 54.9; Est GFR (Non-African American) 47.4; Potassium 4.9 mmol/L (3.5-5.1)
[2020-04-21 06:54] LABS: Thyroid Stimulating Hormone 0.203 uIu/ml (0.300-4.500)
[2020-04-21] MEDS: SODIUM CHLOR 7% 4 ML NEB INH SCH ×4 (06:57→19:02)
[2020-04-21] MEDS: BUDESONIDE 0.5 MG/2 ML VIAL (PULMICORT) INH SCH ×2 (06:57→19:03)
[2020-04-21] MEDS: FORMOTEROL 20 MCG/2 ML VIAL INH SCH ×2 (06:57→19:02)
[2020-04-21] MEDS: ALBUT/IPRATROP 3MG/0.5MG NEB 3 ML VIAL NEB SCH ×4 (06:57→19:03)
[2020-04-21] MEDS: methylPREDNISolone 30 MG in SYRINGE 0 ML IV SCH ×2 (09:19→20:54)
[2020-04-21] MEDS: SUCRALFATE 1 GM/10 ML UDC PO SCH ×4 (09:19→20:52)
[2020-04-21] MEDS: LACTOBACILLUS ACIDOPHILUS (FLORANEX) TAB PO SCH ×3 (11:29→17:19)
[2020-04-21] MEDS: SIMETHICONE 80 MG CHEW PO SCH ×4 (11:30→20:56)
[2020-04-21] MEDS: Magic Swizzle w/Glycerin 240mL MT SCH ×4 (11:30→20:51)
[2020-04-21] MEDS: POTASSIUM CHLORIDE 10 MEQ TABCR PO SCH (11:49)
[2020-04-21] MEDS: LORATADINE 10 MG TAB PO SCH (11:49)
[2020-04-21] MEDS: VENLAFAXINE HCL XR 75 MG CAPXR PO SCH ×2 (11:49→20:54)
[2020-04-21] MEDS: ASPIRIN 81 MG ECTAB PO SCH (11:49)
[2020-04-21] MEDS: FERROUS SULFATE 325 MG TAB PO SCH (11:49)
[2020-04-21] MEDS: METOPROLOL TARTRATE 50 MG TAB PO SCH ×2 (11:50→20:56)
[2020-04-21] MEDS: FAMOTIDINE 20 MG TAB PO SCH ×2 (11:50→20:55)
[2020-04-21] MEDS: FUROSEMIDE 20 MG TAB PO SCH (11:50)
[2020-04-21] MEDS: guaiFENesin 600 MG TABCR PO SCH ×2 (11:50→20:55)
[2020-04-21] MEDS: CYANOCOBALAMIN 500 MCG TABLET (VITAMIN B-12) PO SCH (11:51)
[2020-04-21] MEDS: PANTOprazole 40 MG TAB PO SCH ×2 (11:51→20:55)
[2020-04-21] MEDS: DOXYCYCLINE HYCLATE 100 MG CAP PO SCH ×2 (11:51→20:55)
[2020-04-21] MEDS: CEFEPIME 2,000 MG in SYRINGE 7.5 ML IV SCH ×2 (11:51→22:16)
[2020-04-21] MEDS: BusPIRone 15 MG TAB PO SCH ×3 (11:52→20:55)
[2020-04-21] MEDS: ACETAMINOPHEN 325 MG TAB PO PRN (13:58)
[2020-04-21] MEDS ORDERED: BUTALBITAL/ACETAMIN/CAFFEINE TAB PO STA (16:11)
[2020-04-21] MEDS: LORazepam 0.5 MG TAB PO PRN (16:18)
--- NOTE | 2020-04-21 20:01 | Hospitalist Progress Note ---
Date of Service April 21, 2020 Assessment & Plan (1) Pneumonia: LLL -- possible gram negative pneumonia. Improving. Lives in SNF and has baseline chronic respiratory failure. Thus - for gram negatives - cefepime - day #4. atypical coverage with doxycycline - day #3. blood cultures negative to date. of note - COVID-19 PCR negative. (2) COPD (chronic obstructive pulmonary disease): With acute exacerbation. no significant change in lung exam today. Cont solumedrol 30mg IV BID. Day #3 such. Again no wean today. Hold po prednisone 10mg/day - this is chronic dose for her. Cont regular nebs (pulmicort, etc). Cont duonebs q6h. Cont mucomyst and mucinex. Pulmonary toilet. (3) Chronic respiratory failure: chronic hypoxic resp failure --- on O2 via stoma current o2 amounts are at baseline (4) Odynophagia: started after her EGD with dilatation by [facility] last Sunday. EGD report reviewed; had stricture but no other pathology. No candidiasis, etc. speaking valve was in correct position. CT soft tissues neck obtained - no acute pathology; speaking valve properly placed; no abscess, etc. spoke with [facility] - added carafate suspension 1gm QID for this; was likely a mucosal injury from the dilatation process. again is improved today. cont PPI BID and H2 francine. (5) Anemia: H/H stable this admission (6) GERD (gastroesophageal reflux disease): cont Pepcid, protonix, and carafate (7) Esophageal stricture: s/p dilatation on EGD 04/16/20 ([facility]) (8) Anxiety: Chronic. Stable -Continue Venlafaxine -Continue Buspirone -Ativan PRN - change to q8h dosing at her request (9) Hypertension: Blood pressure stable on metoprolol (10) Hypothyroidism: TSH was elevated in 02/2020 repeat TSH today - scantly depressed would not change levothyroxine dose at this time would repeat a TSH as outpatient in 1 month (11) History of laryngectomy: [address] Nicolas Chandra has speaking valve that is exchanged every few months in the office proper position noted on CT soft tissues neck and EGD a few days ago (12) Chronic kidney disease, stage 3a: baseline CrCL low 30s Cr stable (13) Migraine without aura: evaluated by [facility] [place] [place] felt to have chronic migraines effexor increased at that time metoprolol increased at that time MRI brain/MRA brain neg then as well try fioricet x 1 tonight may need additional prophylaxis -- elavil low-dose? other? (14) DVT prophylaxis: lovenox daily progressing PT/OT evals updated sister 04/20 needs another 1-2 days Admission and Anticipated Discharge Date Admission Date: April 18, 2020 Subjective patient feeling better again today. less sputum production via stoma. slept well overnight. o2 sats stable on blow-by o2. states odynophagia is improved. was eating mashed potatoes with gravy during the visit. mentions chronic, daily headaches. frontal and sometimes occipital. saw Dr Bangura in 11/2019 - told it was chronic migraines. beta francine and effexor both increased. advised to stop narcotics due to likely rebound effect. asks for something other than tylenol or motrin - both do not work. Review of Systems Constitutional: no fever Respiratory: + wheezing; no hemoptysis Cardiovascular: no chest pain and no dyspnea at rest Gastrointestinal: no abdominal pain, no nausea and no vomiting Physical Exam Constitutional: + ill appearing (Chronically-ill appearing but again looks better than yesterday ) and + frail appearing; no acute distress and no altered mental status ENMT: external ear and nose normal, oropharynx normal Mouth: no oral mucosal abnormality (no thrush) and no tongue abnormality (no thrush ) Respiratory: + cough; no respiratory distress Auscultation: + diminished lung sounds (bases) and + wheezes (b/l - decent airation ); no crackles Cardiovascular: Rate/Rhythm: regular rate and regular rhythm Heart Sounds: normal S1 and normal S2; no murmur Vessels: posterior tibial pulses present and dorsalis pedis pulses present; no JVD Extremities: no edema Gastrointestinal (Abdomen): normal bowel sounds, soft, nontender, no hepatosplenomegaly Musculoskeletal: Spine: + kyphosis Psychiatric: Orientation: alert and oriented x 3 Results & Data Results & Data ([facility]) Vital Signs (Past 12 Hours) Vital Signs Temp Pulse Pulse Resp BP BP Pulse Ox 04/21/20 19:41 37.1 C 85 14 127/78 96 06/10/20 19:03 80 18 100 04/21/20 16:23 92 H 04/21/20 15:44 36.7 C 72 18 144/80 H 99 04/21/20 15:12 79 93 04/21/20 11:42 36.4 C L 70 16 123/63 98 04/21/20 11:18 82 18 91 Laboratory Results Laboratory Results - last 24 hr 04/21/20 04/21/20 05:54 05:54 Sodium 140 Potassium 4.9 Chloride 109 H Carbon Dioxide 27 Anion Gap 4.0 BUN 24 H Creatinine 1.18 Est Cr Clr Drug Dosing 32.8 Est GFR ( Amer) 54.9 Est GFR (Non-Af Amer) 47.4 BUN/Creatinine Ratio 19.9 Glucose 132 H Calcium 9.1 TSH 0.203 L Cancelled PG Care Time/CCT Total # of Minutes Spent Total Time Spent with Patient: Total time spent is greater than 50% in coordination of care (as documented) at patient's floor/unit and/or counseling patient: Coding Level of Care Code 79212 Subseq Hosp Care Lvl 2 Diagnoses Pneumonia J18.9 Pneumonia type: due to unspecified organism Laterality: left Lung location: lower lobe of lung COPD (chronic obstructive pulmonary disease) J43.9 COPD type: emphysema Emphysema type: unspecified Chronic respiratory failure J96.11 Respiratory failure complication: hypoxia Odynophagia R13.10 Anemia D64.9 Anemia type: unspecified type GERD (gastroesophageal reflux disease) K21.9 Esophagitis presence: esophagitis presence not specified Esophageal stricture K22.2 Anxiety F41.9 Hypertension I10 Hypertension type: essential hypertension Hypothyroidism E03.9 Hypothyroidism type: unspecified History of laryngectomy Z90.02 Chronic kidney disease, stage 3a N18.3 Migraine without aura G43.009 Status migrainosus presence: without status migrainosus Intractability: not intractable DVT prophylaxis Z29.9 (1) Pneumonia Pneumonia type: due to unspecified organism Laterality: left Lung location: lower lobe of lung Qualified Code(s): J18.9 - Pneumonia, unspecified organism (2) COPD (chronic obstructive pulmonary disease) COPD type: emphysema Emphysema type: unspecified Qualified Code(s): J43.9 - Emphysema, unspecified (3) Anemia Anemia type: unspecified type Qualified Code(s): D64.9 - Anemia, unspecified (4) GERD (gastroesophageal reflux disease) Esophagitis presence: esophagitis presence not specified Qualified Code(s): K21.9 - Gastro-esophageal reflux disease without esophagitis (5) Hypertension Hypertension type: essential hypertension Qualified Code(s): I10 - Essential (primary) hypertension (6) Hypothyroidism Hypothyroidism type: unspecified Qualified Code(s): E03.9 - Hypothyroidism, unspecified (7) Chronic respiratory failure Respiratory failure complication: hypoxia Qualified Code(s): J96.11 - Chronic respiratory failure with hypoxia (8) Migraine without aura Status migrainosus presence: without status migrainosus Intractability: not intractable Qualified Code(s): G43.009 - Migraine without aura, not intractable, without status migrainosus
[2020-04-21] MEDS: ENOXAPARIN INJ 40 MG/0.4 ML SYR SQ SCH (20:56)
[2020-04-22] MEDS: LORazepam 0.5 MG TAB PO PRN ×2 (01:05→17:13)
[2020-04-22] MEDS: LEVOTHYROXINE SODIUM 125 MCG TABLET PO SCH (06:12)
[2020-04-22] MEDS: ALBUT/IPRATROP 3MG/0.5MG NEB 3 ML VIAL NEB SCH ×4 (07:02→19:04)
[2020-04-22] MEDS: FORMOTEROL 20 MCG/2 ML VIAL INH SCH ×2 (07:05→19:04)
[2020-04-22] MEDS: BUDESONIDE 0.5 MG/2 ML VIAL (PULMICORT) INH SCH ×2 (07:05→19:04)
[2020-04-22] MEDS: SODIUM CHLOR 7% 4 ML NEB INH SCH ×4 (07:05→19:04)
[2020-04-22] MEDS: LACTOBACILLUS ACIDOPHILUS (FLORANEX) TAB PO SCH ×3 (10:42→17:15)
[2020-04-22] MEDS: SUCRALFATE 1 GM/10 ML UDC PO SCH ×4 (10:42→20:56)
[2020-04-22] MEDS: SIMETHICONE 80 MG CHEW PO SCH ×4 (10:43→20:57)
[2020-04-22] MEDS: Magic Swizzle w/Glycerin 240mL MT SCH ×4 (10:44→20:56)
[2020-04-22] MEDS: methylPREDNISolone 30 MG in SYRINGE 0 ML IV SCH (11:04)
[2020-04-22] MEDS: CEFEPIME 2,000 MG in SYRINGE 7.5 ML IV SCH ×2 (11:04→22:42)
[2020-04-22] MEDS: BusPIRone 15 MG TAB PO SCH ×3 (11:05→20:57)
[2020-04-22] MEDS: LORATADINE 10 MG TAB PO SCH (13:13)
[2020-04-22] MEDS: VENLAFAXINE HCL XR 75 MG CAPXR PO SCH ×2 (13:14→20:56)
[2020-04-22] MEDS: ASPIRIN 81 MG ECTAB PO SCH (13:14)
[2020-04-22] MEDS: FERROUS SULFATE 325 MG TAB PO SCH (13:14)
[2020-04-22] MEDS: POTASSIUM CHLORIDE 10 MEQ TABCR PO SCH (13:15)
[2020-04-22] MEDS: METOPROLOL TARTRATE 50 MG TAB PO SCH ×2 (13:15→20:58)
[2020-04-22] MEDS: FUROSEMIDE 20 MG TAB PO SCH (13:15)
[2020-04-22] MEDS: guaiFENesin 600 MG TABCR PO SCH ×2 (13:15→20:58)
[2020-04-22] MEDS: DOXYCYCLINE HYCLATE 100 MG CAP PO SCH ×2 (13:16→20:57)
[2020-04-22] MEDS: FAMOTIDINE 20 MG TAB PO SCH ×2 (13:16→20:58)
[2020-04-22] MEDS: PANTOprazole 40 MG TAB PO SCH ×2 (13:16→20:58)
[2020-04-22] MEDS: CYANOCOBALAMIN 500 MCG TABLET (VITAMIN B-12) PO SCH (13:17)
[2020-04-22] MEDS: BUTALBITAL/ACETAMIN/CAFFEINE TAB PO PRN (18:27)
--- NOTE | 2020-04-22 18:56 | Hospitalist Progress Note ---
Date of Service April 22, 2020 Assessment & Plan (1) Pneumonia: RLL and LLL -- possible gram negative pneumonia. Was improving but patient now stating she doesn't feel well. Will repeat her cxr today. Lives in SNF and has baseline chronic respiratory failure. Thus - for gram negatives - cefepime - day #5. atypical coverage with doxycycline - day #4. blood cultures negative to date. COVID-19 PCR negative on day of admission. (2) COPD (chronic obstructive pulmonary disease): With acute exacerbation. Lungs worse today. Increase solumedrol to 40mg IV BID. Day #4 of steroids. Hold po prednisone 10mg/day - this is chronic dose for her. Cont regular nebs (pulmicort, etc). Cont duonebs q6h. Cont sodium chloride nebs qid and mucinex. Pulmonary toilet. Send sputum cx. (3) Chronic respiratory failure: chronic hypoxic resp failure --- on O2 via stoma current o2 amounts are at baseline (4) Odynophagia: started after her EGD with dilatation by [facility] last Sunday. EGD report reviewed; had stricture but no other pathology. No candidiasis, etc. speaking valve was in correct position. CT soft tissues neck obtained - no acute pathology; speaking valve properly placed; no abscess, etc. added carafate suspension 1gm QID for this with improved symptoms was likely a mucosal injury from the dilatation process. cont PPI BID and H2 francine. (5) Anemia: H/H stable this admission (6) GERD (gastroesophageal reflux disease): cont Pepcid, protonix, and carafate (7) Esophageal stricture: s/p dilatation on EGD 04/16/20 ([facility]) (8) Anxiety: Continue Venlafaxine Continue Buspar Ativan PRN (9) Hypertension: Blood pressure stable on metoprolol (10) Hypothyroidism: TSH was elevated in 02/2020 repeat TSH this admission - scantly depressed would repeat a TSH as outpatient in 1 month (11) History of laryngectomy: [address] Nicolas Chandra has speaking valve that is exchanged every few months in the office proper position noted on CT soft tissues neck and EGD a few days ago (12) Chronic kidney disease, stage 3a: baseline CrCL low 30s Cr stable repeat BMP in am for stability (13) Migraine without aura: evaluated by [facility] neurology 11/2019 felt to have chronic migraines effexor increased at that time metoprolol increased at that time MRI brain/MRA brain neg then as well fioricet helped yesterday will add as standing PRN med may need additional prophylaxis -- elavil low-dose? other? (14) DVT prophylaxis: lovenox daily updated sister 04/20 will update her tomorrow Admission and Anticipated Discharge Date Admission Date: April 18, 2020 Subjective patient slept all morning and into the early afternoon. apparently she was up until 2am looking at her phone. during the visit she said "I just don't feel good." when asked specifically what didn't feel well she again repeated "I just don't feel good." has ongoing yellow sputum via her stoma and is also able to expectorate it via her mouth. appetite is poor. has ongoing abdominal pain which is chronic for her. having some diarrhea. no fevers. swallowing is easier than yesterday. states the fioricet "really helped the headache better than anything in the past". Review of Systems Constitutional: + fatigue and + anorexia; no fever and no chills Respiratory: + cough, + dyspnea, + dyspnea on exertion, + sputum production and + wheezing Cardiovascular: no chest pain Gastrointestinal: + abdominal pain; no nausea and no vomiting Physical Exam Constitutional: + ill appearing (Chronically-ill appearing looks similar to yesterday ) and + frail appearing; no acute distress and no altered mental status ENMT: external ear and nose normal, oropharynx normal Mouth: no oral mucosal abnormality (no thrush) and no tongue abnormality (no thrush ) Neck: stoma anterior neck; mild yellow secretions exude from stoma w/ coughing Respiratory: + cough; no respiratory distress Auscultation: + diminished lung sounds (bases), + crackles (occasional ) and + wheezes (worse today b/l ) Cardiovascular: Rate/Rhythm: regular rate and regular rhythm Heart Sounds: normal S1 and normal S2; no murmur Vessels: posterior tibial pulses present and dorsalis pedis pulses present; no JVD Extremities: no edema Gastrointestinal (Abdomen): normal bowel sounds, soft, nontender, no hepatosplenomegaly Musculoskeletal: Spine: + kyphosis Psychiatric: Orientation: alert and oriented x 3 Results & Data Results & Data ([facility]) Vital Signs (Past 12 Hours) Vital Signs Temp Pulse Pulse Resp BP BP Pulse Ox 04/22/20 17:52 84 04/22/20 15:54 36.8 C 86 20 143/85 H 94 04/22/20 14:50 78 20 95 04/22/20 11:33 36.6 C 69 16 131/76 96 04/22/20 11:26 69 18 94 04/22/20 07:25 36.5 C 81 16 135/75 92 04/22/20 07:15 64 04/22/20 07:06 81 20 92 PG Care Time/CCT Total # of Minutes Spent Total Time Spent with Patient: Total time spent is greater than 50% in coordination of care (as documented) at patient's floor/unit and/or counseling patient: Coding Level of Care Code 83297 Subseq Hosp Care Lvl 2 Diagnoses Pneumonia J18.9 Pneumonia type: due to unspecified organism Laterality: left Lung location: lower lobe of lung COPD (chronic obstructive pulmonary disease) J43.9 COPD type: emphysema Emphysema type: unspecified Chronic respiratory failure J96.11 Respiratory failure complication: hypoxia Odynophagia R13.10 Anemia D64.9 Anemia type: unspecified type GERD (gastroesophageal reflux disease) K21.9 Esophagitis presence: esophagitis presence not specified Esophageal stricture K22.2 Anxiety F41.9 Hypertension I10 Hypertension type: essential hypertension Hypothyroidism E03.9 Hypothyroidism type: unspecified History of laryngectomy Z90.02 Chronic kidney disease, stage 3a N18.3 Migraine without aura G43.009 Status migrainosus presence: without status migrainosus Intractability: not intractable DVT prophylaxis Z29.9 (1) Pneumonia Pneumonia type: due to unspecified organism Laterality: left Lung location: lower lobe of lung Qualified Code(s): J18.9 - Pneumonia, unspecified organism (2) COPD (chronic obstructive pulmonary disease) COPD type: emphysema Emphysema type: unspecified Qualified Code(s): J43.9 - Emphysema, unspecified (3) Chronic respiratory failure Respiratory failure complication: hypoxia Qualified Code(s): J96.11 - Chronic respiratory failure with hypoxia (4) Anemia Anemia type: unspecified type Qualified Code(s): D64.9 - Anemia, unspecified (5) GERD (gastroesophageal reflux disease) Esophagitis presence: esophagitis presence not specified Qualified Code(s): K21.9 - Gastro-esophageal reflux disease without esophagitis (6) Hypertension Hypertension type: essential hypertension Qualified Code(s): I10 - Essential (primary) hypertension (7) Hypothyroidism Hypothyroidism type: unspecified Qualified Code(s): E03.9 - Hypothyroidism, unspecified (8) Migraine without aura Status migrainosus presence: without status migrainosus Intractability: not intractable Qualified Code(s): G43.009 - Migraine without aura, not intractable, without status migrainosus
--- NOTE | 2020-04-22 20:22 | XRay Report ---
XR chest 2V PA/lateral CLINICAL HISTORY: b/l pneumonia, COPD, worsening symptoms COMPARISON STUDY: Chest radiograph and chest CT April 18, 2020. FINDINGS: Surgical clips project over the lower neck and upper chest. There is no pneumothorax or ple ural effusion. Severe emphysema is noted. There is no lobar consolidation. Mild bilateral lower lung airspace opacities are noted. These are similar to prior exam. IMPRESSION: 1. No significant change in mild bilateral lower lung airspace opacities which may reflect an infecti ous process or atelectasis. 2. Emphysema. ACT 112: Negative or not required by law. Electronically signed by: Aneesh Carney M.D. 04/22/2020 8:20 PM
[2020-04-22] MEDS: methylPREDNISolone 40 MG in SYRINGE 0 ML IV SCH (20:54)
[2020-04-22] MEDS: ENOXAPARIN INJ 40 MG/0.4 ML SYR SQ SCH (20:56)
[2020-04-23] MEDS: BUTALBITAL/ACETAMIN/CAFFEINE TAB PO PRN ×2 (02:17→16:33)
[2020-04-23] MEDS: LORazepam 0.5 MG TAB PO PRN ×2 (02:17→14:53)
[2020-04-23] MEDS: ALBUTEROL 0.5% NEB SOLN 2.5 MG/0.5 ML VIAL NEB PRN (02:38)
[2020-04-23] MEDS: LEVOTHYROXINE SODIUM 125 MCG TABLET PO SCH (05:59)
[2020-04-23] MEDS: SODIUM CHLOR 7% 4 ML NEB INH SCH ×4 (07:10→19:35)
[2020-04-23] MEDS: FORMOTEROL 20 MCG/2 ML VIAL INH SCH ×2 (07:10→19:35)
[2020-04-23] MEDS: BUDESONIDE 0.5 MG/2 ML VIAL (PULMICORT) INH SCH ×2 (07:10→19:35)
[2020-04-23] MEDS: ALBUT/IPRATROP 3MG/0.5MG NEB 3 ML VIAL NEB SCH ×4 (07:11→19:35)
[2020-04-23 07:49] LABS: Hematocrit (blood only) 43.1 % (37-47); Hemoglobin 13.6 g/dL (12.0-16.0); Mean Corpuscular Hemoglobin 28.1 pg (25-34); Mean Corpuscular Hgb Conc 31.6 g/dL (32-36); Mean Platelet Volume 9.5 fL (7.4-10.4); Platelet Count 240 K/uL (130-400); RDW Coefficient of Variation 14.9 % (11.5-14.5); RDW Standard Deviation 48.2 fL (36.4-46.3); Red Blood Count 4.84 M/uL (4.2-5.4); White Blood Count 11.96 K/uL (4.8-10.8)
[2020-04-23 08:21] LABS: BUN Creatinine Ratio 27.2 (10-20); Calcium 10.3 mg/dl (8.5-10.1); Creatinine Clr Calc Pharmacy 35.3 ml/min; Est GFR (African American) 52.2; Potassium 4.3 mmol/L (3.5-5.1)
--- NOTE | 2020-04-23 08:25 | Hospitalist Progress Note ---
Date of Service April 23, 2020 Assessment & Plan (1) Acute and chronic respiratory failure with hypoxia: chronically on O2 via stoma back at [facility] for COPD. acute component - b/l pneumonia and COPD exacerbation. see below. (2) Pneumonia: RLL and LLL -- possible gram negative pneumonia. Cannot rule out aspiration. CXR 04/22 with unchanged infiltrates; no complicating pulmonary edema or new areas of pneumonia. COVID-19 PCR negative at admission. Blood cx's negative. Sputum cx contaminated. Overall improved today clinically. Cont CEFEPIME for gram negative coverage - day #6 today. Plan 7-day course then STOP. atypical coverage with DOXYCYCLINE - day #5. MRSA swab neg at admission - no coverage for such. (3) COPD (chronic obstructive pulmonary disease): With acute exacerbation. First day of improvement today with her wheezing. Will leave solumedrol at 40mg IV BID for now. Day #5 of steroids. Hold po prednisone 10mg/day - this is chronic dose for her. Cont regular nebs (pulmicort, etc). Cont duonebs q6h. Cont sodium chloride nebs qid and mucinex. Pulmonary toilet. (4) Odynophagia: started after her EGD with dilatation by [facility] last Sunday. EGD report reviewed; had stricture but no other pathology. No candidiasis, etc. speaking valve was in correct position. CT soft tissues neck obtained earlier this week-- no acute pathology; speaking valve properly placed; no abscess, etc. added carafate suspension 1gm QID early this week with improved symptoms was likely a mucosal injury from the dilatation process. cont PPI BID and H2 francine in addition to carafate. seen by speech therapy this week as well - cont "easy to chew" diet. (5) Anemia: H/H stable this admission (6) GERD (gastroesophageal reflux disease): cont Pepcid, protonix, and carafate (7) Esophageal stricture: s/p dilatation on EGD 04/16/20 ([facility]) (8) Anxiety: Continue Venlafaxine Continue Buspar Ativan PRN (9) Hypertension: controlled with metoprolol (10) Hypothyroidism: TSH was elevated in 02/2020 repeat TSH this admission - scantly depressed would repeat a TSH as outpatient in 1 month cont current synthroid dose (11) History of laryngectomy: [address] Nicolas Chandra has speaking valve that is exchanged every few months in the office proper position noted on CT soft tissues neck and EGD 1 week ago (12) Chronic kidney disease, stage 3a: baseline CrCL low 30s Cr stable repeat BMP stable today (13) Migraine without aura: evaluated by [facility] neurolog[facility] 11/2019 felt to have chronic migraines effexor increased at that time metoprolol increased at that time MRI brain/MRA brain neg then as well fioricet helped earlier this week she has this available as PRN med may need additional prophylaxis -- elavil low-dose? other? (14) DVT prophylaxis: lovenox daily updated sister 04/20 and 04/23 minimally elevated total calcium -- repeat BMP am Admission and Anticipated Discharge Date Admission Date: April 18, 2020 Subjective patient sleeping upon my arrival. no distress, very-comfortable appearing. lungs very clear today. she awoke easily - voiced no complaints. stated she wanted to go back to sleep - was up late again last evening playing on her phone. no issues per staff. Review of Systems Constitutional: no fever Respiratory: no dyspnea Cardiovascular: + dyspnea on exertion; no chest pain and no dyspnea at rest Gastrointestinal: no nausea and no vomiting Physical Exam Constitutional: + ill appearing (Chronically-ill appearing looks similar to yesterday ) and + frail appearing; no acute distress and no altered mental status ENMT: external ear and nose normal, oropharynx normal Mouth: no oral mucosal abnormality (no thrush) Respiratory: no respiratory distress Auscultation: + diminished lung sounds (bases), + crackles (occasional / minimal) and + wheezes (Much improved today; airation improved) Cardiovascular: Rate/Rhythm: regular rate and regular rhythm Heart Sounds: normal S1 and normal S2; no murmur Vessels: posterior tibial pulses present and dorsalis pedis pulses present; no JVD Extremities: no edema Gastrointestinal (Abdomen): normal bowel sounds, soft, nontender, no hepatosplenomegaly Musculoskeletal: Spine: + kyphosis Psychiatric: Orientation: alert and oriented x 3 Results & Data Results & Data ([facility]) Vital Signs (Past 12 Hours) Vital Signs Temp Pulse Pulse Resp BP BP Pulse Ox 04/23/20 07:31 66 04/23/20 07:26 36.5 C 73 18 120/73 97 04/23/20 07:19 64 16 98 04/23/20 06:00 75 04/23/20 04:03 36.5 C 88 18 150/76 H 99 04/23/20 02:40 84 16 99 04/22/20 23:19 36.9 C 81 18 130/83 98 Laboratory Results Laboratory Results - last 24 hr 04/23/20 04/23/20 07:26 07:26 WBC 11.96 H RBC 4.84 Hgb 13.6 Hct 43.1 MCV 89.0 MCH 28.1 MCHC 31.6 L RDW Std Deviation 48.2 H RDW Coeff of Eleazar 14.9 H Plt Count 240 MPV 9.5 Sodium 138 Potassium 4.3 Chloride 103 Carbon Dioxide 30 Anion Gap 5.0 BUN 33 H Creatinine 1.23 H Est Cr Clr Drug Dosing 35.3 Est GFR ( Amer) 52.2 Est GFR (Non-Af Amer) 45.0 BUN/Creatinine Ratio 27.2 H Glucose 102 H Calcium 10.3 H Diagnostic Findings sputum cx - contaminated PG Care Time/CCT Total # of Minutes Spent Total Time Spent with Patient: Total time spent is greater than 50% in coordination of care (as documented) at patient's floor/unit and/or counseling patient: Coding Level of Care Code 22114 Subseq Hosp Care Lvl 2 Diagnoses Acute and chronic respiratory failure with hypoxia J96.21 Pneumonia J18.9 Laterality: left Lung location: lower lobe of lung Pneumonia type: due to unspecified organism COPD (chronic obstructive pulmonary disease) J43.9 COPD type: emphysema Emphysema type: unspecified Odynophagia R13.10 Anemia D64.9 Anemia type: unspecified type GERD (gastroesophageal reflux disease) K21.9 Esophagitis presence: esophagitis presence not specified Esophageal stricture K22.2 Anxiety F41.9 Hypertension I10 Hypertension type: essential hypertension Hypothyroidism E03.9 Hypothyroidism type: unspecified History of laryngectomy Z90.02 Chronic kidney disease, stage 3a N18.3 Migraine without aura G43.009 Intractability: not intractable Status migrainosus presence: without status migrainosus DVT prophylaxis Z29.9 (1) Migraine without aura Intractability: not intractable Status migrainosus presence: without status migrainosus Qualified Code(s): G43.009 - Migraine without aura, not intractable, without status migrainosus (2) Anemia Anemia type: unspecified type Qualified Code(s): D64.9 - Anemia, unspecified (3) Hypothyroidism Hypothyroidism type: unspecified Qualified Code(s): E03.9 - Hypothyroidism, unspecified (4) COPD (chronic obstructive pulmonary disease) COPD type: emphysema Emphysema type: unspecified Qualified Code(s): J43.9 - Emphysema, unspecified (5) GERD (gastroesophageal reflux disease) Esophagitis presence: esophagitis presence not specified Qualified Code(s): K21.9 - Gastro-esophageal reflux disease without esophagitis (6) Hypertension Hypertension type: essential hypertension Qualified Code(s): I10 - Essential (primary) hypertension (7) Pneumonia Laterality: left Lung location: lower lobe of lung Pneumonia type: due to unspecified organism Qualified Code(s): J18.9 - Pneumonia, unspecified organism
[2020-04-23] MEDS: SUCRALFATE 1 GM/10 ML UDC PO SCH ×4 (10:49→21:09)
[2020-04-23] MEDS: LACTOBACILLUS ACIDOPHILUS (FLORANEX) TAB PO SCH ×3 (10:49→16:14)
[2020-04-23] MEDS: BusPIRone 15 MG TAB PO SCH ×3 (10:49→21:08)
[2020-04-23] MEDS: SIMETHICONE 80 MG CHEW PO SCH ×4 (10:50→21:08)
[2020-04-23] MEDS: Magic Swizzle w/Glycerin 240mL MT SCH ×4 (10:51→21:08)
[2020-04-23] MEDS: methylPREDNISolone 40 MG in SYRINGE 0 ML IV SCH ×2 (11:11→21:07)
[2020-04-23] MEDS: CEFEPIME 2,000 MG in SYRINGE 7.5 ML IV SCH ×2 (11:11→22:40)
[2020-04-23] MEDS: POTASSIUM CHLORIDE 10 MEQ TABCR PO SCH (14:18)
[2020-04-23] MEDS: FERROUS SULFATE 325 MG TAB PO SCH (14:18)
[2020-04-23] MEDS: ASPIRIN 81 MG ECTAB PO SCH (14:18)
[2020-04-23] MEDS: LORATADINE 10 MG TAB PO SCH (14:18)
[2020-04-23] MEDS: VENLAFAXINE HCL XR 75 MG CAPXR PO SCH ×2 (14:18→21:08)
[2020-04-23] MEDS: guaiFENesin 600 MG TABCR PO SCH ×2 (14:19→21:08)
[2020-04-23] MEDS: FUROSEMIDE 20 MG TAB PO SCH (14:19)
[2020-04-23] MEDS: METOPROLOL TARTRATE 50 MG TAB PO SCH ×2 (14:19→21:08)
[2020-04-23] MEDS: PANTOprazole 40 MG TAB PO SCH ×2 (14:19→21:09)
[2020-04-23] MEDS: FAMOTIDINE 20 MG TAB PO SCH ×2 (14:19→21:08)
[2020-04-23] MEDS: DOXYCYCLINE HYCLATE 100 MG CAP PO SCH ×2 (14:19→21:08)
[2020-04-23] MEDS: CYANOCOBALAMIN 500 MCG TABLET (VITAMIN B-12) PO SCH (14:20)
[2020-04-23] MEDS: ENOXAPARIN INJ 40 MG/0.4 ML SYR SQ SCH (21:08)
[2020-04-24] MEDS: LORazepam 0.5 MG TAB PO PRN ×3 (00:02→23:11)
[2020-04-24] MEDS: BUTALBITAL/ACETAMIN/CAFFEINE TAB PO PRN ×2 (00:48→23:37)
[2020-04-24] MEDS: ALUMINUM/MAGNESIUM SUSP 30 ML UDC PO PRN ×3 (02:00→22:48)
[2020-04-24] MEDS: BUDESONIDE 0.5 MG/2 ML VIAL (PULMICORT) INH SCH ×2 (07:06→19:18)
[2020-04-24] MEDS: FORMOTEROL 20 MCG/2 ML VIAL INH SCH ×2 (07:06→19:18)
[2020-04-24] MEDS: SODIUM CHLOR 7% 4 ML NEB INH SCH ×4 (07:07→19:18)
[2020-04-24] MEDS: LEVOTHYROXINE SODIUM 125 MCG TABLET PO SCH (07:42)
[2020-04-24] MEDS: ALBUT/IPRATROP 3MG/0.5MG NEB 3 ML VIAL NEB SCH ×4 (07:45→19:24)
[2020-04-24] MEDS: LACTOBACILLUS ACIDOPHILUS (FLORANEX) TAB PO SCH ×3 (08:34→16:50)
[2020-04-24] MEDS: SUCRALFATE 1 GM/10 ML UDC PO SCH ×4 (08:34→22:54)
[2020-04-24] MEDS: LORATADINE 10 MG TAB PO SCH (08:35)
[2020-04-24] MEDS: ASPIRIN 81 MG ECTAB PO SCH (08:35)
[2020-04-24] MEDS: FAMOTIDINE 20 MG TAB PO SCH ×2 (08:35→22:56)
[2020-04-24] MEDS: BusPIRone 15 MG TAB PO SCH ×3 (08:35→22:51)
[2020-04-24] MEDS: METOPROLOL TARTRATE 50 MG TAB PO SCH ×2 (08:35→22:52)
[2020-04-24] MEDS: PANTOprazole 40 MG TAB PO SCH ×2 (08:36→22:56)
[2020-04-24] MEDS: guaiFENesin 600 MG TABCR PO SCH ×2 (08:36→22:53)
[2020-04-24] MEDS: FERROUS SULFATE 325 MG TAB PO SCH (08:37)
[2020-04-24] MEDS: CYANOCOBALAMIN 500 MCG TABLET (VITAMIN B-12) PO SCH (08:37)
[2020-04-24] MEDS: DOXYCYCLINE HYCLATE 100 MG CAP PO SCH ×2 (08:37→22:57)
[2020-04-24] MEDS: SIMETHICONE 80 MG CHEW PO SCH ×4 (08:37→22:55)
[2020-04-24] MEDS: POTASSIUM CHLORIDE 10 MEQ TABCR PO SCH (08:37)
[2020-04-24] MEDS: VENLAFAXINE HCL XR 75 MG CAPXR PO SCH ×2 (08:38→22:51)
[2020-04-24] MEDS: FUROSEMIDE 20 MG TAB PO SCH (08:38)
[2020-04-24] MEDS: methylPREDNISolone 40 MG in SYRINGE 0 ML IV SCH ×2 (08:39→22:58)
[2020-04-24] MEDS: Magic Swizzle w/Glycerin 240mL MT SCH ×4 (08:39→22:49)
[2020-04-24 10:10] LABS: BUN Creatinine Ratio 29.8 (10-20); Calcium 9.1 mg/dl (8.5-10.1); Creatinine Clr Calc Pharmacy 29.6 ml/min; Est GFR (African American) 45.9; Est GFR (African American) 48.9; Est GFR (Non-African American) 39.6; Est GFR (Non-African American) 42.2; Potassium 3.9 mmol/L (3.5-5.1)
[2020-04-24] MEDS: CEFEPIME 2,000 MG in SYRINGE 7.5 ML IV SCH ×2 (10:11→23:11)
[2020-04-24] MEDS: ACETAMINOPHEN 325 MG TAB PO PRN (11:46)
--- NOTE | 2020-04-24 13:05 | Hospitalist Progress Note ---
Date of Service April 24, 2020 Assessment & Plan Admission and Anticipated Discharge Date Admission Date: April 18, 2020 70 yo female with pMHx. of COPD trach dependant presents w/ acute exacerbation of COPD likely 2/2 pneumonia. 1) Acute and chronic respiratory failure with hypoxia: chronically on O2 via stoma back at [facility] for COPD. acute component - b/l pneumonia and COPD exacerbation. see below. (2) Pneumonia: RLL and LLL -- possible gram negative pneumonia. Cannot rule out aspiration. CXR 04/22 with unchanged infiltrates; no complicating pulmonary edema or new areas of pneumonia. COVID-19 PCR negative at admission. Blood cx's negative. Sputum cx contaminated. Overall improved today clinically. stopped CEFEPIME for gram negative coverage - day #7 today. Plan 7-day course. atypical coverage with DOXYCYCLINE - day #6. MRSA swab neg at admission - no coverage for such. (3) COPD (chronic obstructive pulmonary disease): With acute exacerbation. First day of improvement today with her wheezing. Will leave solumedrol at 40mg IV BID for now. Day #6 of steroids. Hold po prednisone 10mg/day - this is chronic dose for her. Cont regular nebs (pulmicort, etc). Cont duonebs q6h. Cont sodium chloride nebs qid and mucinex. Pulmonary toilet. Abdominal pain w/ several month history of diarrhea - C. diff ordered given history of diarrhea in the setting of antibiotic use - ordered stool cultures - consider KUB if negative C. diff given that this may represent overflow diarrhea (4) Odynophagia: started after her EGD with dilatation by [facility] last Sunday. EGD report reviewed; had stricture but no other pathology. No candidiasis, etc. speaking valve was in correct position. CT soft tissues neck obtained earlier this week-- no acute pathology; speaking valve properly placed; no abscess, etc. added carafate suspension 1gm QID early this week with improved symptoms was likely a mucosal injury from the dilatation process. cont PPI BID and H2 francine in addition to carafate. seen by speech therapy this week as well - cont "easy to chew" diet. (5) Anemia: H/H stable this admission (6) GERD (gastroesophageal reflux disease): cont Pepcid, protonix, and carafate (7) Esophageal stricture: s/p dilatation on EGD 04/16/20 ([facility]) (8) Anxiety: Continue Venlafaxine Continue Buspar Ativan PRN (9) Hypertension: controlled with metoprolol (10) Hypothyroidism: TSH was elevated in 02/2020 repeat TSH this admission - scantly depressed would repeat a TSH as outpatient in 1 month cont current synthroid dose (11) History of laryngectomy: [address] Nicolas Chandra has speaking valve that is exchanged every few months in the office proper position noted on CT soft tissues neck and EGD 1 week ago (12) Chronic kidney disease, stage 3a: baseline CrCL low 30s Cr stable repeat BMP stable today (13) Migraine without aura: evaluated by [facility] neurology 11/2019 felt to have chronic migraines effexor increased at that time metoprolol increased at that time MRI brain/MRA brain neg then as well fioricet helped earlier this week she has this available as PRN med may need additional prophylaxis -- elavil low-dose? other? (14) DVT prophylaxis: lovenox daily updated sister 04/20 and 04/23 and 04/24 minimally elevated total calcium -- repeat BMP am Anticipated date of discharge: 04/19/20 Supervising Physician Co-Signing Physician Notes I personally examined the patient and verified all mccabe points of history and exam, discussed case, and agree with decision making with Dr Rivas breathing feeling more or less at baseline. new is abdominal discomfort and vomiting. has ongoing diarrhea as well although this has been for months vitals noted nad heent nc at mmm breathing unlabored although has mucous producing coughing fits at times. abd soft but mildly distended mild diffuse tender no guarding no rebound no masses pneumonia - improving, finish course of abx, start to taper steroids abdominal pain, nausea, diarrhea - ?overflow vs infectious. w/u as per dr rivas, follow clinically, low threshold for imaging Subjective Yane Maria was doing okay for me today. She was awake and alert when I walked into the room. It was her birthday today so she had cards out and was in good spirits. She did have some pain in her head as well as her stomach. She explained that she felt a little better overall but not much. She also brought up that she was having some nausea the day prior. She did not have any urinary symptoms. Review of Systems Review of Systems: Constitutional: denies fevers or chills Cardiac: denies chest pain or palpitations GI: admits nausea denies vomiting today : denies increased frequency, urgency or pain Pulmonary: denies shortness of breath Physical Exam Constitutional: well developed; no acute distress ENMT: external ear and nose normal, oropharynx normal Neck: normal visual inspection Respiratory: - bilateral harsh rhonchi, without increased work of breathing Cardiovascular: RRR, no murmur, no edema Gastrointestinal (Abdomen): Inspection/Auscultation: + abdomen distended Percussion/Palpation: + abdomen tender (diffuse mild) and abdomen soft Psychiatric: A+Ox3, euthymic affect Results & Data Results & Data ([facility]) Vital Signs (Past 12 Hours) Vital Signs Temp Pulse Pulse Resp BP BP Pulse Ox 04/24/20 11:47 36.4 C L 77 18 130/77 96 04/24/20 11:20 77 18 96 04/24/20 08:16 36.6 C 65 18 147/91 H 100 04/24/20 07:07 78 17 98 04/24/20 04:43 78 04/24/20 03:05 36.4 C L 74 18 137/79 97 Resident Activity Tracking Resident Involvement: Resident Care Provided Care Provided: Adult Hospital Medicine
--- NOTE | 2020-04-24 18:40 | Billing Data ---
Date of Service April 24, 2020 Coding Level of Care Code 78722 Subseq Hosp Care Lvl 3
[2020-04-24] MEDS: ENOXAPARIN INJ 40 MG/0.4 ML SYR SQ SCH (22:58)
[2020-04-24] MEDS: ALBUTEROL 0.5% NEB SOLN 2.5 MG/0.5 ML VIAL NEB PRN (23:24)
[2020-04-25] MEDS: LEVOTHYROXINE SODIUM 125 MCG TABLET PO SCH (06:02)
[2020-04-25] MEDS: ALUMINUM/MAGNESIUM SUSP 30 ML UDC PO PRN (06:42)
[2020-04-25] MEDS: SODIUM CHLOR 7% 4 ML NEB INH SCH ×4 (07:08→19:24)
[2020-04-25] MEDS: FORMOTEROL 20 MCG/2 ML VIAL INH SCH ×2 (07:08→19:19)
[2020-04-25] MEDS: ALBUT/IPRATROP 3MG/0.5MG NEB 3 ML VIAL NEB SCH ×4 (07:08→19:23)
[2020-04-25] MEDS: BUDESONIDE 0.5 MG/2 ML VIAL (PULMICORT) INH SCH ×2 (07:08→19:19)
[2020-04-25 07:52] LABS: Basophils # (auto) 0.01 K/uL (0-0.2); Basophils % (auto) 0.1 %; Eosinophils # (auto) 0.01 K/uL (0-0.5); Eosinophils % (auto) 0.1 %; Hematocrit (blood only) 41.6 % (37-47); Immature Granulocytes # (auto) 0.13 K/uL (0.00-0.02); Immature Granulocytes % (auto) 0.9 %; Lymphocytes # (auto) 1.71 K/uL (1.2-3.4); Lymphocytes % (auto) 11.9 %; Mean Corpuscular Hemoglobin 27.7 pg (25-34); Mean Corpuscular Hgb Conc 31.3 g/dL (32-36); Mean Corpuscular Volume 88.7 fL (80-100); Mean Platelet Volume 9.5 fL (7.4-10.4); Monocytes # (auto) 0.63 K/uL (0.11-0.59); Monocytes % (auto) 4.4 %; Neutrophils # (auto) 11.94 K/uL (1.4-6.5); Neutrophils % (auto) 82.6 %; Platelet Count 252 K/uL (130-400); RDW Coefficient of Variation 14.7 % (11.5-14.5); RDW Standard Deviation 47.3 fL (36.4-46.3); Red Blood Count 4.69 M/uL (4.2-5.4); White Blood Count 14.43 K/uL (4.8-10.8)
[2020-04-25 08:19] LABS: Calcium 9.3 mg/dl (8.5-10.1); Creatinine Clr Calc Pharmacy 29.6 ml/min; Est GFR (African American) 48.9; Est GFR (African American) 51.8; Est GFR (Non-African American) 42.2; Est GFR (Non-African American) 44.7; Potassium 4.3 mmol/L (3.5-5.1)
[2020-04-25] MEDS: SUCRALFATE 1 GM/10 ML UDC PO SCH ×4 (08:36→21:53)
[2020-04-25] MEDS: CYANOCOBALAMIN 500 MCG TABLET (VITAMIN B-12) PO SCH (08:37)
[2020-04-25] MEDS: LACTOBACILLUS ACIDOPHILUS (FLORANEX) TAB PO SCH ×3 (08:37→17:14)
[2020-04-25] MEDS: POTASSIUM CHLORIDE 10 MEQ TABCR PO SCH (08:37)
[2020-04-25] MEDS: FUROSEMIDE 20 MG TAB PO SCH (08:37)
[2020-04-25] MEDS: methylPREDNISolone 40 MG in SYRINGE 0 ML IV SCH (08:37)
[2020-04-25] MEDS: PANTOprazole 40 MG TAB PO SCH ×2 (08:38→21:59)
[2020-04-25] MEDS: LORATADINE 10 MG TAB PO SCH (08:38)
[2020-04-25] MEDS: METOPROLOL TARTRATE 50 MG TAB PO SCH ×2 (08:38→21:57)
[2020-04-25] MEDS: SIMETHICONE 80 MG CHEW PO SCH ×4 (08:38→21:59)
[2020-04-25] MEDS: guaiFENesin 600 MG TABCR PO SCH ×2 (08:38→22:01)
[2020-04-25] MEDS: FAMOTIDINE 20 MG TAB PO SCH ×2 (08:38→21:59)
[2020-04-25] MEDS: ASPIRIN 81 MG ECTAB PO SCH (08:38)
[2020-04-25] MEDS: DOXYCYCLINE HYCLATE 100 MG CAP PO SCH ×2 (08:38→21:58)
[2020-04-25] MEDS: FERROUS SULFATE 325 MG TAB PO SCH (08:38)
[2020-04-25] MEDS: BusPIRone 15 MG TAB PO SCH ×3 (08:40→22:00)
[2020-04-25] MEDS: VENLAFAXINE HCL XR 75 MG CAPXR PO SCH ×2 (08:40→22:01)
[2020-04-25] MEDS: Magic Swizzle w/Glycerin 240mL MT SCH ×4 (08:52→22:11)
--- NOTE | 2020-04-25 09:53 | Hospitalist Progress Note ---
Date of Service April 25, 2020 Assessment & Plan Admission and Anticipated Discharge Date Admission Date: April 18, 2020 70 yo female with pMHx. of COPD trach dependant presents w/ acute exacerbation of COPD likely 2/2 pneumonia. Acute and chronic respiratory failure with hypoxia: - chronically on O2 via stoma back at [place] for COPD. - acute component - b/l pneumonia and COPD exacerbation. see below. Pneumonia, afebrile w/ continued rise in white count in the setting of steroid use, hemodynamically stable - RLL and LLL -- possible gram negative pneumonia. Cannot rule out aspiration. - CXR 04/22 with unchanged infiltrates; no complicating pulmonary edema or new areas of pneumonia. - COVID-19 PCR negative at admission. - Blood cx's negative. - Sputum cx contaminated. - Overall improved today clinically. - completed 7 day course of Cefepime - atypical coverage with DOXYCYCLINE - day 05/21 - MRSA swab neg at admission - no coverage for such. COPD (chronic obstructive pulmonary disease): - With acute exacerbation. - Will leave Solumedrol at 40mg IV BID for now. Day #6 of steroids. - Hold po prednisone 10mg/day - this is chronic dose for her. - Cont regular nebs (Pulmicort, etc). - Cont duonebs q6h. - Cont sodium chloride nebs qid and Mucinex. - Pulmonary toilet. Abdominal pain w/ several month history of diarrhea; acutely worsened today, with what appears to be worsening distension. - C. diff ordered, but stool was formed - ordered stool cultures, pending - CT a/p w/ contrast w/ no bowel obstruction and air fluid levels concerning for enteritis Odynophagia: - started after her EGD with dilatation by [facility] last Sunday. - EGD report reviewed; had stricture but no other pathology. No candidiasis, etc. - increased pain today, concerned for development of oral candidiasis development and started on nystatin swish and spit - speaking valve was in correct position. - CT soft tissues neck obtained earlier this week-- no acute pathology; speaking valve properly placed; no abscess, etc. - added carafate suspension 1gm QID early this week with improved symptoms - was likely mucosal injury from the dilatation process. - cont PPI BID and H2 francine in addition to carafate. - seen by speech therapy this week as well - cont "easy to chew" diet. (5) Anemia: H/H stable this admission (6) GERD (gastroesophageal reflux disease): cont Pepcid, protonix, and carafate (7) Esophageal stricture: s/p dilatation on EGD 04/16/20 ([facility]) (8) Anxiety: Continue Venlafaxine Continue Buspar Ativan PRN (9) Hypertension: controlled with metoprolol (10) Hypothyroidism: TSH was elevated in 02/2020 repeat TSH this admission - scantly depressed would repeat a TSH as outpatient in 1 month cont current synthroid dose (11) History of laryngectomy: [address] Nicolas Chandra has speaking valve that is exchanged every few months in the office proper position noted on CT soft tissues neck and EGD 1 week ago (12) Chronic kidney disease, stage 3a: baseline CrCL low 30s Cr stable repeat BMP stable today (13) Migraine without aura: evaluated by [facility] [place]/2019 felt to have chronic migraines effexor increased at that time metoprolol increased at that time MRI brain/MRA brain neg then as well fioricet helped earlier this week she has this available as PRN med may need additional prophylaxis -- elavil low-dose? other? 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 ongoing diarrhea. CT and Cdiff results reviewed with pt (CT nonspecific but showing diarrheal/enteritis type illness, stool actually unable to be run since not liquid) vitals noted nad heent nc at mmm breathing unlabored although has mucous producing coughing fits at times. abd soft mildly distended, mild/mod diffuse tender (same to maybe less distended, but somewhat more tender) no guarding no rebound pneumonia - improving, finished 7 days cefepime, will treat with doxy for 10 days to cover COPD/inflammation end of her illness as well, slowly tapering steroids (reduced to IV daily today) abdominal pain, nausea, diarrhea - CT does show diarrheal state rather than hard stool that could be overflow. ongoing and fairly chronic - ?etiology. could consider adding fiber to thicken stool but right now w more pain and worse distention would not want to risk worsening symptoms. at the same time, not seeing a clear etiology so may need to follow that approach over time. clinical f/u, consider gi eval if worsens Subjective Yane Maria explained that she was not doing well this morning and motioned to her abdomen. She said that she was having pain. She was sleepy and somewhat difficult to arouse this morning. Review of Systems Review of Systems: denies fevers, chills, chest pain, or difficulty urinating admits abdominal pain Physical Exam Constitutional: + thin - sleepy Neck: normal visual inspection Respiratory: - slight crackle with wheeze at the bases bilaterally with no respiratory distress (improved from prior exam) Cardiovascular: RRR, no murmur, no edema Gastrointestinal (Abdomen): Inspection/Auscultation: + abdomen distended Percussion/Palpation: + abdomen tender and + guarding; abdomen not rigid Psychiatric: Orientation: alert and cooperative Mood: + depressed mood Results & Data Results & Data ([facility]) Vital Signs (Past 12 Hours) Vital Signs Temp Pulse Pulse Resp BP BP Pulse Ox 04/25/20 07:31 36.7 C 71 18 122/72 100 04/25/20 07:10 81 18 98 04/25/20 06:59 66 04/25/20 03:51 82 04/25/20 03:00 36.3 C L 71 12 129/79 95 04/24/20 23:25 81 18 98 04/24/20 23:00 36.5 C 85 15 129/83 97 Resident Activity Tracking Resident Involvement: Resident Care Provided Care Provided: Adult Hospital Medicine
[2020-04-25] MEDS: LORazepam 0.5 MG TAB PO PRN ×3 (10:06→21:52)
[2020-04-25] MEDS: ACETAMINOPHEN 325 MG TAB PO PRN ×2 (10:06→18:09)
[2020-04-25] MEDS: CEFEPIME 2,000 MG in SYRINGE 7.5 ML IV SCH (10:06)
[2020-04-25] MEDS ORDERED: NYSTATIN 30 ML, DEXAMETHASONE CONC 3.75 MG, DiphenhydrAMINE Syrup 300 MG, ORA-SWEET SYR... PO PRN (10:54)
[2020-04-25] MEDS ORDERED: NYSTATIN 0.625 ML, DEXAMETHASONE CONC 0.078 MG, DiphenhydrAMINE Syrup 6.25 MG, ORA-SWEE... PO ONE ×2 (11:00→11:01)
[2020-04-25] MEDS ORDERED: IOVERSOL 100ml IV PRN (11:06)
--- NOTE | 2020-04-25 11:32 | CT Scan Report ---
ABDOMEN AND PELVIS CT WITH IV CONTRAST CT DOSE: 292.92 mGy.cm HISTORY: Acute generalized abdominal pain with distention abdominal pain and distension TECHNIQUE: Multiaxial CT images of the abdomen and pelvis were performed following the IV administrat ion of 94 cc of Optiray 320, A dose lowering technique was utilized adhering to the principles of AL ZOEY. COMPARISON STUDY: CT abdomen and pelvis 12/31/2019, chest CT 07/21/2019 FINDINGS: There is an irregular and spiculated 1.2 x 1.0 cm nodular opacity of the basal right lower lobe on im age 11 of series 3 which is unchanged over multiple exams dating back to at least 07/21/2019. Emphysema . No pneumatosis or pneumoperitoneum. The imaged inferior cardiac chambers are unremarkable. Coronary artery calcifications. The spleen appears heterogeneous and may be secondary to phase of contrast en hancement. Unremarkable pancreas. Cholecystectomy with mild common bile duct dilation, likely postsur gical. Unremarkable adrenal glands. Hypodense lesion involving the posterior right hepatic lobe with mild peripheral discontinuous nodular enhancement measuring 2.3 x 1.8 cm is unchanged suggestive of b enign etiology. Probable cyst of the interpolar right kidney, 11 mm. Kidneys are otherwise unremarkable. Decompressed urinary bladder. There is advanced mixed plaque of the abdominal aorta. High-grade stenosis of the r ight greater than left common iliac arteries, bilateral internal and external iliac arteries. No nikolas opathy. Mild gaseous distention of the distal esophagus. No bowel obstruction. Air and fluid-filled loops of large and small bowel are noted. No significant bowel wall thickening. The appendix is not diagnostic ally visualized. No secondary signs of acute appendicitis. No ascites or mesenteric inflammation. Verenice stases recti. Subcutaneous edema with terminal thickening of the lower anterior abdominal wall is not ed in conjunction with scattered foci of subcutaneous emphysema suggestive of medicinal injection sit es. Demineralized appearance of the bones. No suspicious bone lesions. No acute fracture. IMPRESSION: 1. No bowel obstruction or bowel wall thickening. 2. Air and fluid-filled involving loops of large and small bowel may reflect enteritis with diarrheal illness. 3. No pneumoperitoneum. 4. Additional findings as above. ACT 112: Negative or not required by law. The above report was generated using voice recognition software. It may contain grammatical, syntax o r spelling errors. Electronically signed by: Brad Limon M.D. 04/25/2020 11:31 AM
[2020-04-25] MEDS: NYSTATIN SUSP 500,000 U/5 ML UDC PO SCH ×3 (12:01→21:53)
--- NOTE | 2020-04-25 17:29 | Billing Data ---
Date of Service April 25, 2020 Coding Level of Care Code 29445 Subseq Hosp Care Lvl 2
[2020-04-25] MEDS: ONDANSETRON INJ 2 MG/ML 2 ML VIAL IV PRN (18:48)
[2020-04-25] MEDS: ENOXAPARIN INJ 40 MG/0.4 ML SYR SQ SCH (22:02)
[2020-04-25] MEDS: BUTALBITAL/ACETAMIN/CAFFEINE TAB PO PRN (22:19)
[2020-04-26 07:00] LABS: Basophils # (auto) 0.04 K/uL (0-0.2); Basophils % (auto) 0.3 %; Eosinophils # (auto) 0.22 K/uL (0-0.5); Eosinophils % (auto) 1.6 %; Hematocrit (blood only) 44.2 % (37-47); Hemoglobin 13.5 g/dL (12.0-16.0); Immature Granulocytes # (auto) 0.23 K/uL (0.00-0.02); Immature Granulocytes % (auto) 1.7 %; Lymphocytes # (auto) 2.72 K/uL (1.2-3.4); Lymphocytes % (auto) 19.7 %; Mean Corpuscular Hemoglobin 27.5 pg (25-34); Mean Corpuscular Hgb Conc 30.5 g/dL (32-36); Mean Platelet Volume 9.6 fL (7.4-10.4); Monocytes # (auto) 1.25 K/uL (0.11-0.59); Neutrophils # (auto) 9.36 K/uL (1.4-6.5); Neutrophils % (auto) 67.7 %; Platelet Count 176 K/uL (130-400); RDW Coefficient of Variation 14.8 % (11.5-14.5); RDW Standard Deviation 48.5 fL (36.4-46.3); Red Blood Count 4.91 M/uL (4.2-5.4); White Blood Count 13.82 K/uL (4.8-10.8)
[2020-04-26] MEDS: LEVOTHYROXINE SODIUM 125 MCG TABLET PO SCH (07:04)
[2020-04-26 07:14] LABS: BUN Creatinine Ratio 31.5 (10-20); Calcium 8.5 mg/dl (8.5-10.1); Creatinine Clr Calc Pharmacy 33.8 ml/min; Est GFR (African American) 57.4; Est GFR (Non-African American) 49.6; Potassium 4.3 mmol/L (3.5-5.1)
[2020-04-26] MEDS: ALBUT/IPRATROP 3MG/0.5MG NEB 3 ML VIAL NEB SCH ×2 (07:29→11:06)
[2020-04-26] MEDS: FORMOTEROL 20 MCG/2 ML VIAL INH SCH (07:31)
[2020-04-26] MEDS: SODIUM CHLOR 7% 4 ML NEB INH SCH ×2 (07:31→11:06)
[2020-04-26] MEDS: BUDESONIDE 0.5 MG/2 ML VIAL (PULMICORT) INH SCH (07:31)
[2020-04-26] MEDS: guaiFENesin 600 MG TABCR PO SCH (09:33)
[2020-04-26] MEDS: SUCRALFATE 1 GM/10 ML UDC PO SCH ×2 (09:33→10:22)
[2020-04-26] MEDS: LACTOBACILLUS ACIDOPHILUS (FLORANEX) TAB PO SCH ×2 (09:33→12:16)
[2020-04-26] MEDS: FERROUS SULFATE 325 MG TAB PO SCH (09:34)
[2020-04-26] MEDS: LORATADINE 10 MG TAB PO SCH (09:34)
[2020-04-26] MEDS: BusPIRone 15 MG TAB PO SCH (09:34)
[2020-04-26] MEDS: CYANOCOBALAMIN 500 MCG TABLET (VITAMIN B-12) PO SCH (09:34)
[2020-04-26] MEDS: methylPREDNISolone 40 MG in SYRINGE 0 ML IV SCH (09:34)
[2020-04-26] MEDS: ASPIRIN 81 MG ECTAB PO SCH (09:34)
[2020-04-26] MEDS: FAMOTIDINE 20 MG TAB PO SCH (09:34)
[2020-04-26] MEDS: NYSTATIN SUSP 500,000 U/5 ML UDC PO SCH ×2 (09:35→12:16)
[2020-04-26] MEDS: PANTOprazole 40 MG TAB PO SCH (09:35)
[2020-04-26] MEDS: METOPROLOL TARTRATE 50 MG TAB PO SCH (09:35)
[2020-04-26] MEDS: SIMETHICONE 80 MG CHEW PO SCH ×2 (09:35→12:16)
[2020-04-26] MEDS: FUROSEMIDE 20 MG TAB PO SCH (09:35)
[2020-04-26] MEDS: POTASSIUM CHLORIDE 10 MEQ TABCR PO SCH (09:36)
[2020-04-26] MEDS: Magic Swizzle w/Glycerin 240mL MT SCH ×2 (09:36→12:16)
[2020-04-26] MEDS: VENLAFAXINE HCL XR 75 MG CAPXR PO SCH (09:38)
--- NOTE | 2020-04-26 10:27 | Gastrointestinal Consultation ---
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 Of note she is overdue for colonoscopy for TA in 2012 and had bx proven lymphocytic colitis on colon in 2012 C.diff not sent because of formed stool Stool culture pending Would repeat a KUB this AM as distended Continue PPI BID Continue carafate QID Consider questran 1 packet daily Appreciate HAND STONER recommendation for diet No plan for repeat EGD Colonoscopy, timing to be determined Thank you for allowing us to participate in the care of this patient. Please call with any acute changes, questions or concerns. Please see addendum below with additional recommendation from my supervising physician. Attg add: I interviewed and examined pt, reviewed chart and labs. Pt with longstanding diarrhea, which she describes 5-6 BM's a day with incontinence; this is unchanged. Her colonoscopy previously micro colitis; she also is s/p cholecystectomy. Her dysphagia is stable. Will plan for empiric therapy with bile acid resin at a low dose. 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 Pt was seen and evaluated, chart reviewed. She was sleeping but awoke to name. Of note there are a half eaten bag of chips at bedside, pudding at bedside. Notes she has had intermittent diarrhea for months. Watery or soft stools. Brown. No black or bloody stools. Last BM documented was formed but she notes 2/3 loose, watery stools overnight. No nausea, vomiting. She has had some painful swallowing since EGD. EGD 2019: Tracheoesophageal prosthesis seen. Benign-appearing upper esophageal stenosis, improved. Dilated up to 15 mm. Hiatal hernia.Normal stomach. Duodenal diverticulum. Colonoscopy 2013: Ascending colon polyp 0.5 cm s/p complete removal via hot snare. Random colon biopsies and stool aspirate. Normal terminal ileum with deep cannulation to 15 to 20cm Non-bleeding AVM in cecum. Overdue for recall due to TA Random biopsies w/ lymphocytic colitis CTAP 2019: No bowel obstruction or bowel wall thickening. Air and fluid-filled involving loops of large and small bowel may reflect enteritis with diarrheal illness. No pneumoperitoneum. Additional findings as above. Allergies Allergy/AdvReac Type Severity Reaction Status Date / Time alendronate sodium Allergy U UNK Verified 04/18/20 15:39 penicillin V Allergy U UNK Verified 04/18/20 15:39 sulfadiazine Allergy U Unknown Verified 04/18/20 15:39 Home Medications Home Medications Medication Instructions Recorded Confirmed Type Cepacol Sore Throat (luiza-men) 1 flo PO Q4H PRN 07/29/19 04/18/20 History aspirin 81 mg PO QAM 07/29/19 04/18/20 History bismuth subsalicylate 525 mg PO Q6H PRN 07/29/19 04/18/20 History buspirone 15 mg PO TID 07/29/19 04/18/20 History Magic Swizzle 20 ml PO QID 07/30/19 04/18/20 History simethicone [Gas Relief 80 80 mg PO QID 07/30/19 04/18/20 History (simethicone)] potassium chloride [Klor-Con M10] 10 meq PO QAM 09/19/19 04/18/20 History alum-mag hydroxide-simeth [Maalox 30 ml PO Q8H PRN 10/23/19 04/18/20 History Advanced] docusate sodium 100 mg capsule 200 mg PO HS cap 12/02/19 04/18/20 History Saline Solution 12/31/19 12/31/19 History Systane (propylene glycol) 1 drp OPHTHALMIC (EYE) Q6 PRN 12/31/19 04/18/20 History furosemide 20 mg PO QAM 12/31/19 04/18/20 History loratadine [Claritin] 10 mg PO QAM 12/31/19 04/18/20 History lorazepam [Ativan] 0.5 mg PO Q12 PRN 12/31/19 04/18/20 History metoprolol tartrate 50 mg PO BID 12/31/19 04/18/20 History sodium chloride 3 ml INHALATION QID 12/31/19 04/18/20 History venlafaxine 75 mg PO BID 12/31/19 04/18/20 History budesonide 0.5 mg INHALATION BIDR #60 ml 01/04/20 04/18/20 Rx multivitamin 1 tab PO QAM #30 tab 01/04/20 04/18/20 Rx acetaminophen 650 mg PO Q6 PRN 04/09/20 04/18/20 History famotidine 20 mg PO BID 04/09/20 04/18/20 History ferrous sulfate 325 mg PO QAM 04/09/20 04/18/20 History levothyroxine 125 mcg PO QAM 04/09/20 04/18/20 History pantoprazole [Protonix] 40 mg PO QAM 04/09/20 04/18/20 History cyanocobalamin (vitamin B-12) 1,000 mcg PO QAM 04/18/20 04/18/20 History formoterol fumarate 20 mcg INHALATION BID 04/18/20 04/18/20 History doxycycline hyclate 100 mg PO BID #5 cap 04/26/20 Rx lorazepam 0.5 mg PO Q8H PRN #15 tab 04/26/20 Rx prednisone 10 mg PO DAILY #60 tab 04/26/20 Rx sucralfate 10 ml PO ACHS 30 Days #100 ml 04/26/20 Rx Patient History Medical History (Updated 04/26/20 @ 10:30 by Michelle Caballero) Anemia Cancer HX lung and laryngeal cancer Chronic pain syndrome Chronic respiratory failure (Acute) Constipation COPD (chronic obstructive pulmonary disease) Depression with anxiety Dysphagia Elevated hemidiaphragm GERD (gastroesophageal reflux disease) History of breast cancer (Acute) History of ETOH abuse (Acute) History of pneumonia (Acute) aspiration pneumonia in left lower lobe History of radiation therapy Larynx: 02/25/09 - 04/09/09 Hyperlipemia Hypertension Hypothyroidism Insomnia Lactose intolerance (Acute) 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 Dr. Jin in MAIN OR. Lightly sedated patient, suctioned stoma and placed 6.0 ETT through stoma. Secured in place. General with SEVO. History of esophagogastroduodenoscopy (EGD) with steroid injection, esophageal stricture dilation History of laryngectomy 2009 History of radical neck dissection 2009 History of ventral hernia repair (Acute) Tracheostomy status Social History Preferred Language: [place] Leonean Communication Ability: Impaired Visual Impairment: Limited Hearing Ability: Normal Storage Facility Rental Clerk Required: No Beliefs That Will Affect Care: None marital status: Single Current Living Situation: Long-Term Current Living Situation Comment: [facility] current occupational status: retired current occupation: Retired Feels Safe at Home: Yes Smoking Status: Former smoker Tobacco Type: cigarettes ; Cigarettes Per Day: UP TO 60 ; Second Hand Exposure: No ; Hx Alcohol Use: No Hx Substance Use: No caffeine: Yes (0-1 cup / day ) during the past year weight has: remained stable Review of Systems Constitutional: no fever and no chills Respiratory: no cough and no dyspnea Cardiovascular: no chest pain and no dyspnea Gastrointestinal: no abdominal pain, no coffee ground emesis, no blood in stools and no melena Physical Exam Constitutional: + ill appearing (chronically ill); no acute distress Neck: trachea midline Respiratory: normal respiratory effort Cardiovascular: Rate/Rhythm: regular rate and regular rhythm Gastrointestinal (Abdomen): Inspection/Auscultation: + abdomen distended and normal bowel sounds Percussion/Palpation: abdomen soft; abdomen nontender Skin: no rashes, warm and dry Results & Data ([facility]) Vital Signs (Past 12 Hours) Vital Signs Temp Pulse Pulse Resp BP BP Pulse Ox 04/26/20 07:39 36.6 C 64 20 132/78 97 04/26/20 07:34 64 20 95 04/26/20 07:04 64 04/26/20 03:35 36.7 C 74 18 132/77 96 04/25/20 23:47 81 04/25/20 22:59 37.1 C 86 20 95/53 L Laboratory Results 04/26/20 04/26/20 Range/Units 06:22 06:22 WBC 13.82 H (4.8-10.8) K/uL RBC 4.91 (4.2-5.4) M/uL Hgb 13.5 (12.0-16.0) g/dL Hct 44.2 (37-47) % MCV 90.0 (80-100) fL MCH 27.5 (25-34) pg MCHC 30.5 L (32-36) g/dL RDW Std Deviation 48.5 H (36.4-46.3) fL RDW Coeff of Eleazar 14.8 H (11.5-14.5) % Plt Count 176 (130-400) K/uL MPV 9.6 (7.4-10.4) fL Immature Gran % (Auto) 1.7 % Neut % (Auto) 67.7 % Lymph % (Auto) 19.7 % Polk % (Auto) 9.0 % Eos % (Auto) 1.6 % Baso % (Auto) 0.3 % Immature Gran # (Auto) 0.23 H (0.00-0.02) K/uL Neut # (Auto) 9.36 H (1.4-6.5) K/uL Lymph # (Auto) 2.72 (1.2-3.4) K/uL Polk # (Auto) 1.25 H (0.11-0.59) K/uL Eos # (Auto) 0.22 (0-0.5) K/uL Baso # (Auto) 0.04 (0-0.2) K/uL Sodium 136 (136-145) mmol/L Potassium 4.3 (3.5-5.1) mmol/L Chloride 106 (98-107) mmol/L Carbon Dioxide 26 (21-32) mmol/L Anion Gap 4.0 (3-11) BUN 36 H (7-18) mg/dl Creatinine 1.13 (0.6-1.2) mg/dl Est Cr Clr Drug Dosing 33.8 ml/min Est GFR ( Amer) 57.4 Est GFR (Non-Af Amer) 49.6 BUN/Creatinine Ratio 31.5 H (10-20) Glucose 77 (70-99) mg/dl Calcium 8.5 (8.5-10.1) mg/dl Specimen Hemolysis
[2020-04-26] MEDS: LORazepam 0.5 MG TAB PO PRN (10:42)
[2020-04-26] MEDS: ACETAMINOPHEN 325 MG TAB PO PRN (10:42)
--- NOTE | 2020-04-26 10:48 | Discharge Summary ---
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 She presents from [facility] with complaint of worsening shortness of breath. She had an esophageal dilatation performed by GI on Sunday, since then she complains of her throat closing and pain in her right neck. In the ER patient was seen manually removing large amounts of thickened secretions from her stoma. She was evaluated by RT with stoma care and suction performed with removal of a very large mucus plug. Respiratory status improved. Patient complaining of pain in her right neck as well as a headache. ER Course: Tylenol, Pepcid, Levaquin, Ativan, Vancomycin Principal Diagnosis Acute on Chronic Respiratory Failure; Pneumonia Discharge Exam Constitutional + thin, cooperative and comfortable; not ill appearing Eyes EOM intact bilaterally ENMT Ears: no external ear abnormality Nose: no external nose abnormality Neck trachea midline and + tracheostomy present Respiratory able to speak in complete sentences; no respiratory distress and does not use accessory muscles good air movement anteriorly; mild coarse breath sounds with mild diffuse expiratory wheeze Cardiovascular Rate/Rhythm: regular rate and regular rhythm Extremities: no edema distant heart sounds Gastrointestinal (Abdomen) Inspection/Auscultation: normal bowel sounds Percussion/Palpation: abdomen soft; abdomen nontender, no guarding and abdomen not rigid Musculoskeletal Head/Neck/Chest: normocephalic and head atraumatic Skin no rashes, warm and dry Neurologic moves all extremities and awake Psychiatric A+Ox3, euthymic affect Discharge Data Allergies Allergy/AdvReac Type Severity Reaction Status Date / Time alendronate sodium Allergy U UNK Verified 04/18/20 15:39 penicillin V Allergy U UNK Verified 04/18/20 15:39 sulfadiazine Allergy U Unknown Verified 04/18/20 15:39 Consultations 04/18/20 21:16 ED Decision to Admit Stat 04/18/20 21:53 Consult Case Management - Discharge Planning Routine 04/25/20 18:57 Consult Gastroenterology Routine Ordered Studies 04/18/20 15:46 CT angio chest PE protocol Stat 04/19/20 10:37 CT soft tissue neck w con Urgent 04/25/20 09:53 CT abd pelvis IV con only Urgent Hospital Course (1) Acute and chronic respiratory failure with hypoxia: 70 yo female with pMHx. of COPD trach dependant presents w/ acute exacerbation of COPD likely 2/2 pneumonia. Acute and chronic respiratory failure with hypoxia: - chronically on O2 via stoma back at [facility] for COPD. - acute component - b/l pneumonia and COPD exacerbation. see below. - Now improved and stable for discharge home. - Will continue with 2.5 more days of Doxycycline 100mg BID, 5 more doses need as outpatient for total of 10 days. - Will have Prednisone taper as outpatient. 60mg x3 days, 50mg x 3 days, 40mg x 3 days, 30mg x 3 days, 20mg x 3 days, then resume chronic 10mg daily regimen. Pneumonia, afebrile w/ continued rise in white count in the setting of steroid use, hemodynamically stable - RLL and LLL -- possible gram negative pneumonia. Cannot rule out aspiration. - CXR 04/22 with unchanged infiltrates; no complicating pulmonary edema or new areas of pneumonia. - COVID-19 PCR negative at admission. Re-tested for SNF discharge, ordered collected and pending results. - Blood cx's negative. - Sputum cx contaminated. - Overall improved today clinically and stable for discharge home - completed 7 day course of Cefepime - atypical coverage with DOXYCYCLINE - day 8.03/21 - MRSA swab neg at admission - no coverage for such. COPD (chronic obstructive pulmonary disease): - With acute exacerbation. - Completed Solumedrol at 40mg IV BID with Day #7 of steroids. Will continue Pred taper as noted above. - Hold po prednisone 10mg/day - this is chronic dose for her. - Cont regular nebs (Pulmicort, etc). - Cont duonebs q6h. - Cont sodium chloride nebs qid and Mucinex. - Pulmonary toilet. Abdominal pain w/ several month history of diarrhea; acutely worsened during stay then improved, with what appears to be worsening distension. - C. diff ordered, but stool was formed - ordered stool cultures, pending curretly no signs of infection - CT a/p w/ contrast w/ no bowel obstruction and air fluid levels concerning for enteritis - Will continue with Sucralfate 1gm ACHS as this has helped symptomatically in hospital. - GI was consulted and saw patient on 04/26. GI recs: suggested a repeat KUB this AM as distended. Will hold on this imaging as patient clinically improved and tolerating PO intake. Continue PPI BID; Continue carafate QID Consider questran 1 packet daily - will defer to outpatient management for starting this medication. No plan for repeat EGD. Colonoscopy, timing to be determined Odynophagia: - started after her EGD with dilatation by [facility] last Sunday. - EGD report reviewed; had stricture but no other pathology. No candidiasis, etc. - increased pain today, concerned for development of oral candidiasis development and started on nystatin swish and spit. this was discontinued on discharge to avoid polypharmacy. Unsure if needed as negative for roberto in esophagus on EGD recently. Although, she has risk factors for roberto. Will defer to SNF. - speaking valve was in correct position. - CT soft tissues neck obtained earlier this week-- no acute pathology; speaking valve properly placed; no abscess, etc. - added carafate suspension 1gm QID early this week with improved symptoms - was likely mucosal injury from the dilatation process. - cont PPI BID and H2 francine in addition to carafate. - seen by speech therapy this week as well - cont "easy to chew" diet. (5) Anemia: H/H stable this admission (6) GERD (gastroesophageal reflux disease): cont Pepcid, protonix, and carafate (7) Esophageal stricture: s/p dilatation on EGD 04/16/20 ([facility]) (8) Anxiety: Continue Venlafaxine Continue Buspar Ativan PRN (9) Hypertension: controlled with metoprolol (10) Hypothyroidism: TSH was elevated in 02/2020 repeat TSH this admission - scantly depressed would repeat a TSH as outpatient in 1 month cont current synthroid dose (11) History of laryngectomy: [address] Nicolas Chandra has speaking valve that is exchanged every few months in the office proper position noted on CT soft tissues neck and EGD 1 week ago (12) Chronic kidney disease, stage 3a: baseline CrCL low 30s Cr stable repeat BMP stable today (13) Migraine without aura: evaluated by [facility] 11/2019 felt to have chronic migraines effexor increased at that time metoprolol increased at that time MRI brain/MRA brain neg then as well fioricet helped earlier this week she has this available as PRN med Will discontinue on discharge may need additional prophylaxis -- elavil low-dose? other? (14) DVT prophylaxis: lovenox daily (2) Diarrhea: (3) Odynophagia: (4) Chronic respiratory failure: (5) Shortness of breath: (6) Anxiety: (7) Tracheostomy present: (8) COPD exacerbation: (9) Migraine without aura: (10) Bilateral pneumonia: (11) History of laryngectomy: (12) History of radical neck dissection: (13) Acute and chronic respiratory failure with hypoxia: (14) History of section: (15) Hypothyroidism: (16) Hypertension: (17) Hyperlipemia: (18) History of radiation therapy: Total Time Total Time Spent Total Time Spent (In Minutes): 45 Total Time Includes: Examination of the Patient, Discharge Planning, Medication Reconciliation and Communication With Other Providers Discharge Plan Discharge Items Patient Disposition: Transfer [facility] Fac Reason For Visit: COUGH, SOB Discharge Diagnosis: Acute on Chronic Respiratory Failure; Pneumonia Activity: Per Instructions section Non-emergency contact: Primary Care Provider Call non-emergency contact if: you have any medication questions, your symptoms worsen and you have a fever Follow-up/Referrals: Tyrese Alcantar [Primary Care Provider] - Diet: Regular Addtl Attending Provider Instructions: Acute and chronic respiratory failure with hypoxia: - Now improved and stable for discharge home. - Will continue with 2.5 more days of Doxycycline 100mg BID, 5 more doses needed as outpatient for total of 10 days. - Will have Prednisone taper as outpatient. 60mg x3 days, 50mg x 3 days, 40mg x 3 days, 30mg x 3 days, 20mg x 3 days, then resume chronic 10mg daily regimen. Pneumonia, afebrile w/ continued rise in white count in the setting of steroid use, hemodynamically stable - RLL and LLL -- possible gram negative pneumonia. Cannot rule out aspiration. - CXR 04/22 with unchanged infiltrates; no complicating pulmonary edema or new areas of pneumonia. - COVID-19 PCR negative at admission. Re-tested for SNF on discharge, ordered collected and pending results. - Blood cx's were negative. - Sputum cx was contaminated. - Overall improved today clinically and stable for discharge home - You completed 7 days course of Cefepime antibiotic and will need to continue with DOXYCYCLINE antibiotic for 2.5 more days (5 doses) - for a total of 10 day course. - MRSA swab neg at admission - no coverage needed. COPD (chronic obstructive pulmonary disease): - With acute exacerbation. - Completed Solumedrol at 40mg IV BID with Day #7 of steroids. Will continue Pred taper as noted above. - Hold po prednisone 10mg/day - this is chronic dose for her. Continue once you finish your taper to 10mg. - Cont regular nebs (Pulmicort, etc). - Cont duonebs as needed - Cont sodium chloride nebs qid and Mucinex. - Pulmonary toilet. Abdominal pain w/ several month history of diarrhea; acutely worsened today, with what appears to be worsening distension. - C. diff ordered, but stool was formed - ordered stool cultures, pending curretly no signs of infection - CT a/p w/ contrast w/ no bowel obstruction and air fluid levels concerning for enteritis. There was no infectious source found. Recommend that you follow up with GI. GI was consulted and saw patient in hospital. - Will continue with Sucralfate 1gm ACHS as this has helped symptomatically in hospital. - GI was consulted and saw patient on 04/26. GI recs: suggested a repeat KUB this AM as distended. Will hold on this imaging as patient clinically improved and tolerating PO intake. Continue PPI BID; Continue carafate QID. Consider questran 1 packet daily - will defer to outpatient management for starting this medication. No plan for repeat EGD. Colonoscopy, timing to be determine Odynophagia: - [facility] - EGD report reviewed; had stricture but no other pathology. No candidiasis, etc. - increased pain 04/25, concerned for development of oral candidiasis development and started on nystatin swish and spit. this was discontinued on discharge to avoid polypharmacy. Unsure if needed as negative for roberto in esophagus on EGD recently. Although, she has risk factors for roberto. Will defer to SNF. - speaking valve was in correct position. - CT soft tissues neck obtained earlier this week-- no acute pathology; speaking valve properly placed; no abscess, etc. - added carafate suspension 1gm QID early this week with improved symptoms - was likely mucosal injury from the dilatation process. - cont PPI BID and H2 francine in addition to carafate. - seen by speech therapy this week as well - cont "easy to chew" diet. Pending Studies at Discharge: Yes Studies:: Covid-19 Screening was ordered and collected prior to discharge. Stand-Alone Forms: [facility] Skilled Items Patient informed of condition?: Yes DNR: No Discharge Level of Care: Skilled Communicable Disease: No Discharge Prognosis: Stable Lines: None Urinary Catheter: No Medications and DC Order Prescriptions: New sucralfate 100 mg/mL Suspension 10 ml PO ACHS 30 Days Qty: 100 RF: 0 prednisone 10 mg tablet 10 mg PO DAILY Qty: 60 RF: 0 doxycycline hyclate 100 mg Capsule 100 mg PO BID Qty: 5 RF: 0 lorazepam 0.5 mg Tablet 0.5 mg PO Q8H PRN (Reason: anxiety) Qty: 15 RF: 0 Continued docusate sodium [Colace] 100 mg capsule 200 mg PO HS RF: 0 aspirin 81 mg Tablet,Chewable 81 mg PO QAM RF: 0 bismuth subsalicylate 525 mg/15 mL Suspension 525 mg PO Q6H PRN (Reason: nausea/diarrhea) RF: 0 buspirone 15 mg Tablet 15 mg PO TID RF: 0 Cepacol Sore Throat (luiza-men) 15-2.6 mg Lozenge 1 flo PO Q4H PRN (Reason: Sore Throat) RF: 0 Magic Swizzle 20 ml PO QID RF: 0 simethicone [Gas Relief 80 (simethicone)] 80 mg Tablet,Chewable 80 mg PO QID RF: 0 potassium chloride [Klor-Con M10] 10 mEq Tablet,Er Particles/Crystals 10 meq PO QAM RF: 0 venlafaxine 37.5 mg capsule,extended release 24hr 75 mg PO BID RF: 0 furosemide 20 mg Tablet 20 mg PO QAM RF: 0 metoprolol tartrate 50 mg Tablet 50 mg PO BID RF: 0 loratadine [Claritin] 10 mg Tablet 10 mg PO QAM RF: 0 lorazepam [Ativan] 0.5 mg tablet 0.5 mg PO Q12 PRN (Reason: Anxiety) RF: 0 (DME) Saline Solution Solution MISCELLANEOUS RF: 0 Systane (propylene glycol) 0.4-0.3 % Drops 1 drp OPHTHALMIC (EYE) Q6 PRN (Reason: Dry Eyes) RF: 0 sodium chloride 7 % solution for nebulization 3 ml inhalation QID RF: 0 budesonide 0.5 mg/2 mL Suspension For Nebulization 0.5 mg inhalation BIDR Qty: 60 RF: 0 multivitamin Tablet 1 tab PO QAM Qty: 30 RF: 0 alum-mag hydroxide-simeth [Maalox Advanced] 200-200-20 mg/5 mL Suspension 30 ml PO Q8H PRN (Reason: Acid Reflux) RF: 0 acetaminophen 650 mg Tablet Extended Release 650 mg PO Q6 PRN (Reason: Pain) RF: 0 famotidine 20 mg Tablet 20 mg PO BID RF: 0 pantoprazole [Protonix] 40 mg Tablet,Delayed Release (Dr/Ec) 40 mg PO QAM RF: 0 ferrous sulfate 325 mg (65 mg iron) Tablet 325 mg PO QAM RF: 0 levothyroxine 125 mcg Tablet 125 mcg PO QAM RF: 0 formoterol fumarate 20 mcg/2 mL Solution For Nebulization 20 mcg INHALATION BID RF: 0 cyanocobalamin (vitamin B-12) 1,000 mcg capsule 1,000 mcg PO QAM RF: 0 Discontinued prednisone 10 mg tablet 10 mg PO QAM RF: 0 Discharge Orders: Discharge Order (Routine); Ordered 04/26/20 Ordered By: Misbah Chambers Admission Data Admit Date/Time: 04/18/20 20:35 Attending Provider: David Pace Admit Provider: Chichi Veloz Primary Care Provider: [place] Other Providers: David Higuera Dustin G. Other Interventions: Discharge Summary Assessment (RN) Last Done: 04/26/20 11:29 DC Date/Time DO NOT enter until pt leaves facility: 04/26/20 14:36 Supervising Physician Co-Signing Physician Notes Patient seen and examined with PGY-2 Dr. Chambers. Agree with history, exam findings, assessment and plan of care as outlined by Dr. Key. In brief, Ms Maria is a 70 year old female with history of COPD admitted from [facility] with acute COPD exacerbation and pneumonia. Today, she feels well. Feels that she is breathing well. Does have some cough still. Reports that abdominal pain is improved. Stools are no longer loose. VS, labs and nursing notes reviewed. On exam, she has a wet sounding cough. On trach collar and breathing easily and unlabored. 1. pneumonia. MRSA swab negative. Continue doxy on discharge. 2. COPD exacerbation. Switch from IV to PO steroids. Will plan for a taper as patient is on chronic steroids (10mg pred). Taper as above. Continue regular nebs. 3. abdominal pain/loose stools. resolved. Stool cultures neg. C. diff not done as stool was formed. 4. odynophagia. improved. continue with nystatin swish and spit, PPI, H2 francine, carafate. Follow with GI as scheduled. Other chronic issues stable and home medications continued. Discharge back to [facility] today. I personally spent 35 minutes discharge planning for this patient. Resident Activity Tracking Resident Involvement: Resident Care Provided Care Provided: Adult Hospital Medicine
[2020-04-26] MEDS ORDERED: DOXYCYCLINE HYCLATE 100 MG CAP PO SCH (11:15)
[2020-04-26] MEDS ORDERED: ONDANSETRON 4 MG OD TAB PO STA (12:42)
== END 2020-04-26 14:36 | DRG 177 ==
LOC: ED 14:18 → 2W 20:35 → SUATTDRO 20:35 → 2W 21:16

== ENCOUNTER 2020-05-13 17:05 | Inpatient (IN) ==
[2020-05-13] MEDS ORDERED: ALBUT/IPRATROP 3MG/0.5MG NEB 3 ML VIAL NEB STA (17:28)
[2020-05-13] MEDS ORDERED: methylPREDNISolone 60 MG in SYRINGE 1 ML IV STA (17:28)
[2020-05-13] MEDS ORDERED: CEFEPIME 2,000 MG/20 ML VIAL IV STA (17:28)
[2020-05-13] MEDS ORDERED: SODIUM CHLORIDE 0.9% 1000ML 500 ML IV ONE (17:28)
[2020-05-13] MEDS ORDERED: ALBUT/IPRATROP 3MG/0.5MG NEB 3 ML VIAL ONE (17:29)
--- NOTE | 2020-05-13 17:37 | Emergency Department Note ---
Impression & Plan Acute respiratory distress, Pneumonia, Leukocytosis ED Provider Note NAME: TRUONG MEJIA AGE: 70 SEX: F : 1950 ARRIVES VIA: Ambulance INFORMANT: [Patient][ems, nurses] ED PROVIDER(S): [Kam Cox MD] CHIEF COMPLAINT: Respiratory distress HISTORY OF PRESENT ILLNESS: The patient is a 70-year-old female with a permanent trach. She has COPD and a lot of respiratory issues. She was recently in the hospital for pneumonia and is currently residing at [facility]. The patient today was noticed to be febrile and quite short of breath. This all came down quickly about an hour or so ago. The patient was swabbed for coronavirus, the result of course is pending. There have been some cases of coronavirus at [facility]. Patient cannot give me any history as she is breathing rapidly and seems quite short of breath. She has a trach collar in place. She has greenish colored sputum coming from the tracheostomy. Given the circumstances, no further history obtainable. REVIEW OF SYSTEMS: Unobtainable given her respiratory issues and distress PMHx/PSHx: See Below SOCIAL HISTORY: See Below. PHYSICAL EXAM: GENERAL: Patient is in moderate respiratory distress. Nonverbal. HEENT: No acute trauma, normocephalic atraumatic, mucous membranes moist, no nasal congestion, no scleral icterus. NECK: Tracheostomy in place, green-colored sputum around the tracheostomy. LUNGS: Rhonchi with wheezing bilaterally, increased respiratory rate, moderate respiratory distress. HEART: Cannot really be heard because of the overriding lung sounds. ABDOMEN: Soft, nontender, bowel sounds positive, no hernias, no peritonitis. EXTREMITIES: No cyanosis or edema, full range of motion of all the joints without pain or difficulty, no signs for acute trauma. NEUROLOGIC: Nonverbal, awake and alert, moves all extremities. SKIN: No rash, no jaundice, no diaphoresis. DIFFERENTIAL DIAGNOSIS: Sepsis, UTI, pneumonia, metabolic, electrolyte abnormalities, coronavirus, bronchitis, exacerbation of COPD, cardiac sources, intracerebral event, toxicologic, neurologic, as well as other pathologies. EMERGENCY DEPARTMENT COURSE/PROCEDURES: ECG: Indication was shortness of breath. The ECG shows a normal sinus rhythm with a rate of 93. The QTc is 465. There is no ST elevation, no PVCs. Continuous Cardiac Monitoring: An order was placed for continuous cardiac monitoring. The monitor shows a rate of 76 with normal sinus rhythm. Critical Care Note: I have personally spent greater than 41 minutes of critical care time in the direct management of this patient. This includes bedside care, interpretation of diagnostic studies, and testing, discussion with consultants, patient, and family members, and other required patient management activities. This 41 minutes is in excess of all separately billable procedures. MEDICAL DECISION MAKING: There is a moderate leukocytosis, this of course could be consistent with infection. No anemia. There was a normal platelet count. No coagulopathy. There was some mild renal insufficiency, this is baseline looking back at previous testing. No concerning liver enzyme elevation. Procalcitonin and lactic acid levels were both normal making severe sepsis less likely. Coronavirus testing returned negative. EKG showed a sinus rhythm, no acute ischemia. Cardiac enzyme testing x1 is not consistent with acute cardiac injury. Chest film does suggest a right lower lung pneumonia, no pneumothorax or CHF. Sputum culture from her tracheostomy is pending. The patient was aggressively managed as she was in distress upon arrival. She received IV saline for hydration. She was given IV Solu-Medrol to help with bronchospasm. She received IV cefepime as empiric antibiotic coverage. She was given a DuoNeb. The patient seems to have made improvement with the above treatment. She clearly requires a hospital stay. I did speak to the patient as well as case management. The on-call hospitalist has been consulted. It appears the pneumonia has led to her significant dyspnea and presentation here at the ED. 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 Dr. Jin in MAIN OR. Lightly sedated patient, suctioned stoma and placed 6.0 ETT through stoma. Secured in place. General with SEVO. 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 Required: No Beliefs That Will Affect Care: None marital status: Single Current Living Situation: [facility] Current Living Situation Comment: [facility] current occupational status: retired current occupation: Retired Other Information That Helps Us Care for You: No Feels Safe at Home: Yes Safety Concerns: Feels Safe At This Time Smoking Status: Former smoker Tobacco Type: cigarettes ; Cigarettes Per Day: UP TO 60 ; Second Hand Exposure: No ; Hx Alcohol Use: No Hx Substance Use: No caffeine: Yes (0-1 cup / day ) during the past year weight has: remained stable Allergies Allergies Allergy/AdvReac Type Severity Reaction Status Date / Time alendronate sodium Allergy Unknown ON CENTRE Verified 05/13/20 18:15 [facility]ST MED LIST penicillin V Allergy Unknown ON CENTRE Verified 05/13/20 18:15 CREST MED LIST sulfadiazine Allergy Unknown ON CENTRE Verified 05/13/20 18:15 CREST MED LIST Home Meds Home Medications Medication Instructions Recorded Confirmed Cepacol Sore Throat (luiza-men) 1 flo PO Q4H PRN 07/29/19 05/13/20 aspirin 81 mg PO QAM 07/29/19 05/13/20 bismuth subsalicylate 525 mg PO Q6H PRN 07/29/19 05/13/20 buspirone 15 mg PO TID 07/29/19 05/13/20 Magic Swizzle 20 ml PO QID 07/30/19 05/13/20 simethicone [Gas Relief 80 80 mg PO QID 07/30/19 05/13/20 (simethicone)] potassium chloride [Klor-Con M10] 10 meq PO QAM 09/19/19 05/13/20 alum-mag hydroxide-simeth [Maalox 30 ml PO Q8H PRN 10/23/19 05/13/20 Advanced] docusate sodium 100 mg capsule 200 mg PO HS cap 12/02/19 05/13/20 Saline Solution 12/31/19 12/31/19 Systane (propylene glycol) 1 drp OPHTHALMIC (EYE) Q6 PRN 12/31/19 05/13/20 furosemide 20 mg PO QAM 12/31/19 05/13/20 loratadine [Claritin] 10 mg PO QDL 12/31/19 05/13/20 metoprolol tartrate 50 mg PO BID 12/31/19 05/13/20 sodium chloride 3 ml INHALATION QID 12/31/19 05/13/20 venlafaxine 75 mg PO BID 12/31/19 05/13/20 acetaminophen 650 mg PO Q6 PRN MDD 3 GR/24 HOURS 04/09/20 05/13/20 famotidine 20 mg PO BID 04/09/20 05/13/20 ferrous sulfate 325 mg PO QDL 04/09/20 05/13/20 levothyroxine 125 mcg PO QAM 04/09/20 05/13/20 pantoprazole [Protonix] 40 mg PO QAM 04/09/20 05/13/20 cyanocobalamin (vitamin B-12) 1,000 mcg PO QDL 04/18/20 05/13/20 formoterol fumarate 20 mcg INHALATION BID 04/18/20 05/13/20 budesonide 0.5 mg INHALATION BID 05/13/20 05/13/20 juylsbomvn-[id number]-cgru 2 cap PO Q6H PRN 05/13/20 05/13/20 [Fioricet] multivitamin 1 tab PO QDL 05/13/20 05/13/20 ondansetron HCl [Zofran] 4 mg PO Q6H PRN 05/13/20 05/13/20 promethazine 25 mg IM Q6H PRN 05/13/20 05/13/20 promethazine 25 mg PO Q6H PRN 05/13/20 05/13/20 Previous Rx's Medication Instructions Recorded lorazepam 0.5 mg PO Q8H PRN #15 tab 04/26/20 prednisone 10 mg PO DAILY #60 tab 04/26/20 sucralfate 10 ml PO ACHS 30 Days #100 ml 04/26/20 Results & Data (ED) Vital Signs Vital Signs - 24 hr 05/13/20 17:12 05/13/20 17:20 05/13/20 17:28 Temperature 38 C H Temperature Source Oral Pulse Rate 85 85 92 H Pulse Rate [Forehead] Pulse Rate from SpO2 Sensor 85 85 Respiratory Rate 26 H 24 24 Respiratory Effort / Characteristics Non-Labored Spontaneous Respiratory Depth Normal Respiratory Pattern Regular Blood Pressure 108/76 110/67 Blood Pressure Mean 85 81 Pulse Oximetry 98 96 93 Oxygen Delivery Method Trach Collar Trach Collar Trach Collar Oxygen Flow Rate 4 4 6 Fraction of Inspired Oxygen Sepsis Recent Fever Within 48 Hours No Sepsis Action Taken by Nursing No Action Required 05/13/20 17:30 05/13/20 17:55 05/13/20 18:00 Temperature Temperature Source Pulse Rate 87 95 H 94 H Pulse Rate [Forehead] 95 H Pulse Rate from SpO2 Sensor 88 95 H Respiratory Rate 24 24 28 H Respiratory Effort / Characteristics Spontaneous Respiratory Depth Respiratory Pattern Blood Pressure Blood Pressure Mean Pulse Oximetry 96 93 98 Oxygen Delivery Method Trach Collar Trach Collar Trach Collar Oxygen Flow Rate 4 4 Fraction of Inspired Oxygen 28 Sepsis Recent Fever Within 48 Hours Sepsis Action Taken by Nursing 05/13/20 18:30 05/13/20 18:31 05/13/20 19:00 Temperature Temperature Source Pulse Rate 88 90 84 Pulse Rate [Forehead] Pulse Rate from SpO2 Sensor 88 84 84 Respiratory Rate 26 H 24 21 Respiratory Effort / Characteristics Respiratory Depth Respiratory Pattern Blood Pressure 117/76 129/69 Blood Pressure Mean 81 84 Pulse Oximetry 95 Oxygen Delivery Method Trach Collar Oxygen Flow Rate 4 Fraction of Inspired Oxygen Sepsis Recent Fever Within 48 Hours Sepsis Action Taken by Nursing 05/13/20 19:01 05/13/20 19:30 05/13/20 19:31 Temperature Temperature Source Pulse Rate 86 88 90 Pulse Rate [Forehead] Pulse Rate from SpO2 Sensor 84 88 90 Respiratory Rate 19 17 22 Respiratory Effort / Characteristics Respiratory Depth Respiratory Pattern Blood Pressure 88/70 L Blood Pressure Mean 81 Pulse Oximetry 91 Oxygen Delivery Method Oxygen Flow Rate Fraction of Inspired Oxygen Sepsis Recent Fever Within 48 Hours Sepsis Action Taken by Nursing 05/13/20 20:00 05/13/20 20:01 05/13/20 20:27 Temperature 37.3 C Temperature Source Oral Pulse Rate 86 85 Pulse Rate [Forehead] Pulse Rate from SpO2 Sensor 86 Respiratory Rate 27 H 24 Respiratory Effort / Characteristics Respiratory Depth Respiratory Pattern Blood Pressure 122/71 Blood Pressure Mean 87 Pulse Oximetry 91 Oxygen Delivery Method Oxygen Flow Rate Fraction of Inspired Oxygen Sepsis Recent Fever Within 48 Hours Sepsis Action Taken by Nursing 05/13/20 20:30 05/13/20 20:31 Temperature Temperature Source Pulse Rate 86 85 Pulse Rate [Forehead] Pulse Rate from SpO2 Sensor Respiratory Rate 21 25 H Respiratory Effort / Characteristics Respiratory Depth Respiratory Pattern Blood Pressure 120/73 Blood Pressure Mean 96 Pulse Oximetry 91 90 Oxygen Delivery Method Oxygen Flow Rate Fraction of Inspired Oxygen Sepsis Recent Fever Within 48 Hours Sepsis Action Taken by [facility] Medications Current Medication List: was personally reviewed by me Laboratory Data Attestation: I reviewed the patient's lab results. Result diagrams: 05/13/20 17:29 05/13/20 17:29 Lab Results 05/13/20 05/13/20 05/13/20 Range/Units 17:29 17:29 17:29 WBC 16.88 H (4.8-10.8) K/uL RBC 4.68 (4.2-5.4) M/uL Hgb 13.2 (12.0-16.0) g/dL Hct 43.2 (37-47) % MCV 92.3 (80-100) fL MCH 28.2 (25-34) pg MCHC 30.6 L (32-36) g/dL RDW Std Deviation 52.3 H (36.4-46.3) fL RDW Coeff of Eleazar 16.0 H (11.5-14.5) % Plt Count 244 (130-400) K/uL MPV 9.5 (7.4-10.4) fL Immature Gran % (Auto) 0.4 % Neut % (Auto) 85.3 % Lymph % (Auto) 8.5 % [place] % (Auto) 4.6 % Eos % (Auto) 1.1 % Baso % (Auto) 0.1 % Neut # (Auto) 14.41 H (1.4-6.5) K/uL Lymph # (Auto) 1.44 (1.2-3.4) K/uL [place] # (Auto) 0.77 H (0.11-0.59) K/uL Eos # (Auto) 0.18 (0-0.5) K/uL Baso # (Auto) 0.02 (0-0.2) K/uL Immature Gran # (Auto) 0.06 H (0.00-0.02) K/uL PT 10.3 (9.0-12.0) Seconds INR 1.0 (0.9-1.1) APTT 22.3 (21.0-31.0) Seconds PTT Ratio 0.8 Sodium (136-145) mmol/L Potassium (3.5-5.1) mmol/L Chloride (98-107) mmol/L Carbon Dioxide (21-32) mmol/L Anion Gap (3-11) BUN (7-18) mg/dl Creatinine (0.6-1.2) mg/dl Est Cr Clr Drug Dosing ml/min Est GFR ( Amer) Est GFR (Non-Af Amer) BUN/Creatinine Ratio (10-20) Glucose (70-99) mg/dl Lactate (0.4-2.0) mmol/L Calcium (8.5-10.1) mg/dl Magnesium (1.8-2.4) mg/dl Total Bilirubin (0.2-1) mg/dl AST (15-37) U/L ALT (12-78) U/L Alkaline Phosphatase (45-117) U/L Troponin I (0-0.045) ng/ml Total Protein (6.4-8.2) gm/dl Albumin (3.4-5.0) gm/dl Globulin (2.5-4.0) gm/dl Albumin/Globulin Ratio (0.9-2) Procalcitonin 0.26 (0-0.5) ng/ml 05/13/20 05/13/20 Range/Units 17:29 18:04 WBC (4.8-10.8) K/uL RBC (4.2-5.4) M/uL Hgb (12.0-16.0) g/dL Hct (37-47) % MCV (80-100) fL MCH (25-34) pg MCHC (32-36) g/dL RDW Std Deviation (36.4-46.3) fL RDW Coeff of Eleazar (11.5-14.5) % Plt Count (130-400) K/uL MPV (7.4-10.4) fL Immature Gran % (Auto) % Neut % (Auto) % Lymph % (Auto) % [place] % (Auto) % Eos % (Auto) % Baso % (Auto) % Neut # (Auto) (1.4-6.5) K/uL Lymph # (Auto) (1.2-3.4) K/uL [place] # (Auto) (0.11-0.59) K/uL Eos # (Auto) (0-0.5) K/uL Baso # (Auto) (0-0.2) K/uL Immature Gran # (Auto) (0.00-0.02) K/uL PT (9.0-12.0) Seconds INR (0.9-1.1) APTT (21.0-31.0) Seconds PTT Ratio Sodium 138 (136-145) mmol/L Potassium 4.5 (3.5-5.1) mmol/L Chloride 103 (98-107) mmol/L Carbon Dioxide 29 (21-32) mmol/L Anion Gap 6.0 (3-11) BUN 19 H (7-18) mg/dl Creatinine 1.33 H (0.6-1.2) mg/dl Est Cr Clr Drug Dosing 30.1 ml/min Est GFR ( Amer) 47.2 Est GFR (Non-Af Amer) 40.7 BUN/Creatinine Ratio 14.4 (10-20) Glucose 133 H (70-99) mg/dl Lactate 1.5 (0.4-2.0) mmol/L Calcium 9.1 (8.5-10.1) mg/dl Magnesium 2.6 H (1.8-2.4) mg/dl Total Bilirubin 0.2 (0.2-1) mg/dl AST 21 (15-37) U/L ALT 42 (12-78) U/L Alkaline Phosphatase 94 (45-117) U/L Troponin I < 0.015 (0-0.045) ng/ml Total Protein 7.2 (6.4-8.2) gm/dl Albumin 3.4 (3.4-5.0) gm/dl Globulin 3.8 (2.5-4.0) gm/dl Albumin/Globulin Ratio 0.9 (0.9-2) Procalcitonin (0-0.5) ng/ml Administered Medications Budesonide (Pulmicort Respules) 0.5 mg INH BIDR LINDSAY Stop: 06/12/20 22:59 Last Admin: 05/13/20 22:50 Dose: 0.5 mg Documented by: [id number] Formoterol Fumarate (Perforomist) 20 mcg INH BIDR ILNDSAY Stop: 06/12/20 22:59 Last Admin: 05/13/20 22:50 Dose: 20 mcg Documented by: [id number] Sodium Chloride (Sodium Chlor 7% Neb Solution) 3 ml INH QIDR LINDSAY Stop: 06/12/20 22:59 Last Admin: 05/13/20 22:50 Dose: 3 ml Documented by: [id number] Discontinued Medications Albuterol (Duoneb) Confirm Administered Dose 3 ml .ROUTE .STK-MED ONE Stop: 05/13/20 17:30 Last Admin: 05/13/20 17:57 Dose: Not Given Documented by: [id number] Albuterol (Duoneb) 3 ml NEB NOW STA Stop: 05/13/20 17:29 Last Admin: 05/13/20 17:41 Dose: 3 ml Documented by: [id number] Cefepime HCl (Maxipime) 2,000 mg in 20 mls @ 5 mls/min IV NOW STA; Protocol Stop: 05/13/20 17:31 Last Admin: 05/13/20 18:28 Dose: 5 mls/min Documented by: [id number] Sodium Chloride (Nss 1000ml) 500 mls @ 999 mls/hr IV .Q31M ONE Stop: 05/13/20 17:58 Last Infusion: 05/13/20 19:24 Dose: 0 mls/hr Documented by: [id number] Admin: 05/13/20 18:24 Dose: 999 mls/hr Documented by: [id number] Methylprednisolone 60 mg/ (Syringe) 1.96 mls @ 1.5 mls/min IV NOW STA Stop: 05/13/20 17:29 Last Admin: 05/13/20 18:02 Dose: Not Given Documented by: [id number] Methylprednisolone (Solumedrol) Confirm Administered Dose 125 mg .ROUTE .STK-MED ONE Stop: 05/13/20 18:02 Last Admin: 05/13/20 18:24 Dose: 80 mg Documented by: [id number] Imaging Data Radiologist's Impression: XR chest 1V portable CLINICAL HISTORY: Sepsis. COMPARISON STUDY: Chest CT April 18, 2020. Chest radiograph April 22, 2020. FINDINGS: Surgical clips within the neck are noted. There is no pneumothorax. There is no evidence for pulmonary edema. No pleural effusion is identified. Underlying emphysema is present. Right basilar opacity is increased. Left basilar opacity is unchanged. IMPRESSION: 1. Increase in right basilar opacity. This may reflect pneumonia or atelectasis. 2. Left basilar opacity which is unchanged and favors atelectasis. 3. Emphysema. Blood Pressure Blood Pressure Findings: Normal blood pressure Blood Pressure Disposition: further management by hospitalist Discharge Plan Visit Data *Final* Discharge Date/Time: 05/13/20 21:51 Chief Complaint: Shortness of Breath/Dyspnea Stated Complaint: SOB, FEVER ED Provider: Kam Cox Discharge Problem: Acute respiratory distress, Pneumonia, Leukocytosis Patient Disposition: Admitted As Inpatient Condition: Fair Discharge Instructions Interventions: ED Discharge Assessment Last Done: 05/13/20 21:51 Discharge Problem: Pneumonia Qualifiers: Pneumonia type: due to unspecified organism Laterality: right Lung location: lower lobe of lung Qualified Code(s): J18.9 - Pneumonia, unspecified organism Leukocytosis Qualifiers: Leukocytosis type: unspecified Qualified Code(s): D72.829 - Elevated white blood cell count, unspecified
[2020-05-13 17:38] LABS: Basophils # (auto) 0.02 K/uL (0-0.2); Basophils % (auto) 0.1 %; Eosinophils # (auto) 0.18 K/uL (0-0.5); Eosinophils % (auto) 1.1 %; Hematocrit (blood only) 43.2 % (37-47); Hemoglobin 13.2 g/dL (12.0-16.0); Immature Granulocytes # (auto) 0.06 K/uL (0.00-0.02); Immature Granulocytes % (auto) 0.4 %; Lymphocytes # (auto) 1.44 K/uL (1.2-3.4); Lymphocytes % (auto) 8.5 %; Mean Corpuscular Hemoglobin 28.2 pg (25-34); Mean Corpuscular Hgb Conc 30.6 g/dL (32-36); Mean Corpuscular Volume 92.3 fL (80-100); Mean Platelet Volume 9.5 fL (7.4-10.4); Monocytes # (auto) 0.77 K/uL (0.11-0.59); Monocytes % (auto) 4.6 %; Neutrophils # (auto) 14.41 K/uL (1.4-6.5); Neutrophils % (auto) 85.3 %; Platelet Count 244 K/uL (130-400); RDW Standard Deviation 52.3 fL (36.4-46.3); Red Blood Count 4.68 M/uL (4.2-5.4); White Blood Count 16.88 K/uL (4.8-10.8)
[2020-05-13 17:49] LABS: Partial Thromboplastin Ratio 0.8; Partial Thromboplastin Time 22.3 Seconds (21.0-31.0); Prothrombin Time 10.3 Seconds (9.0-12.0)
[2020-05-13 17:56] LABS: Alanine Aminotransferase 42 U/L (12-78); Albumin Level 3.4 gm/dl (3.4-5.0); Aspartate Aminotransferase 21 U/L (15-37); BUN Creatinine Ratio 14.4 (10-20); Blood Urea Nitrogen 19 mg/dl (7-18); Calcium 9.1 mg/dl (8.5-10.1); Carbon Dioxide 29 mmol/L (21-32); Chloride 103 mmol/L (98-107); Creatinine Clr Calc Pharmacy 30.1 ml/min; Est GFR (African American) 47.2; Est GFR (Non-African American) 40.7; Glucose 133 mg/dl (70-99); Magnesium 2.6 mg/dl (1.8-2.4); Potassium 4.5 mmol/L (3.5-5.1); Sodium 138 mmol/L (136-145)
[2020-05-13 18:01] LABS: Albumin Globulin Ratio 0.9 (0.9-2); Alkaline Phosphatase 94 U/L (45-117); Bilirubin,Total 0.2 mg/dl (0.2-1); Globulin 3.8 gm/dl (2.5-4.0); Total Protein 7.2 gm/dl (6.4-8.2); Troponin I < 0.015 ng/ml (0-0.045)
[2020-05-13] MEDS ORDERED: methylPREDNISolone 125 MG/2 ML VIAL ONE (18:01)
--- NOTE | 2020-05-13 18:42 | XRay Report ---
XR chest 1V portable CLINICAL HISTORY: Sepsis. COMPARISON STUDY: Chest CT April 18, 2020. Chest radiograph April 22, 2020. FINDINGS: Surgical clips within the neck are noted. There is no pneumothorax. There is no evidence fo r pulmonary edema. No pleural effusion is identified. Underlying emphysema is present. Right basilar opacity is increased. Left basilar opacity is unchanged. IMPRESSION: 1. Increase in right basilar opacity. This may reflect pneumonia or atelectasis. 2. Left basilar opacity which is unchanged and favors atelectasis. 3. Emphysema. ACT 112: Negative or not required by law. Electronically signed by: Aenesh Carney M.D. 05/13/2020 6:41 PM
--- NOTE | 2020-05-13 20:36 | XRay Report ---
[facility] CLINICAL HISTORY: Abdominal pain. COMPARISON STUDY: CT of the abdomen and pelvis April 25, 2020. FINDINGS: There is mild gaseous distention of small large bowel. No convincing evidence for a bowel o bstruction. Cholecystectomy clips are noted. IMPRESSION: 1. No evidence for a bowel obstruction. 2. Mild gaseous distention of small and large bowel. ACT 112: Negative or not required by law. Electronically signed by: Aneesh Carney M.D. 05/13/2020 8:35 PM
--- NOTE | 2020-05-13 20:37 | History & Physical Report ---
Date of Service May 13, 2020 Assessment & Plan (1) Acute respiratory distress: 70 yo F w/ hx Acute on Chromic respiratory failure with hypoxia, permanent trach collar, CKD stage 3a, laryngeal cancer, COPD admitted from [facility] with concerns for aspiration Pneumonitis causing worsening SOB. 1) Aspiration Pneumonitis - CXR showing right lower lobe consolidation - lung sounds on exam diffusely poor, however could be complicated by overlying upper airway sounds from tracheostomy - WBC 16, hx fevers at [facility], temp of 38 in ED at 5:30 - Cefepime x1 in ED - pulmonary toilet - CT Chest ordered will require pre-treatment with ativan - tracheal suction frequently - culture tracheal aspirate - procal 0.26 - blood culture pending 2) Abdominal pain - KUB showing lots of air, concern for obstruction with potential for perforation vs. constipation - CT abd/Pelv ordered will require pre-treatment with 0.25 mg ativan - continued home bowel regimen support 3) IZABEL on CKD - Cr 1.33, baseline 1.2 - continue IV fluid support HTN - metoprolol 50 mg BID Hypothyroidism -125 mcg levothyroxine COPD formoterol fumartate 20 mcg BID budesonide 0.5 mg BID anxiety -buspar 15 mg TID - venlafaxine 75 mg BID - lorazepam 0.5 PO Q8 PRN at home [held] DVt ppx: lovenox FEN/GI: NPO Code status: full code Dispo: Med/Surg (2) Pneumonia: (3) Leukocytosis: (4) Acute and chronic respiratory failure with hypoxia: (5) Chronic kidney disease, stage 3a: (6) Laryngeal cancer: (7) Tracheostomy present: History of Present Illness 70 yo F w/ hx Acute on Chromic respiratory failure with hypoxia, permanent trach collar, CKD stage 3a, laryngeal cancer, COPD, who presents from [facility] for complaints of SOB for the past few days. States she's had worsening cough with thick green mucus production and pain with inspiration. Was told she had a fever >100 by nursing aides, has been feeling chills. Also attests to nausea but denies any episodes of emesis. Primary Care Provider: [facility] Allergies Allergy/AdvReac Type Severity Reaction Status Date / Time alendronate sodium Allergy Unknown ON [facility] Verified 05/13/20 18:15 [facility] MED LIST penicillin V Allergy Unknown ON [facility] Verified 05/13/20 18:15 [facility] sulfadiazine Allergy Unknown ON [facility] Verified 05/13/20 18:15 [facility] L[facility] Home Medications Home Medications Medication Instructions Recorded Confirmed Type Cepacol Sore Throat (luiza-men) 1 flo PO Q4H PRN 07/29/19 05/13/20 History aspirin 81 mg PO QAM 07/29/19 05/13/20 History bismuth subsalicylate 525 mg PO Q6H PRN 07/29/19 05/13/20 History buspirone 15 mg PO TID 07/29/19 05/13/20 History Magic Swizzle 20 ml PO QID 07/30/19 05/13/20 History simethicone [Gas Relief 80 80 mg PO QID 07/30/19 05/13/20 History (simethicone)] potassium chloride [Klor-Con M10] 10 meq PO QAM 09/19/19 05/13/20 History alum-mag hydroxide-simeth [Maalox 30 ml PO Q8H PRN 10/23/19 05/13/20 History Advanced] docusate sodium 100 mg capsule 200 mg PO HS cap 12/02/19 05/13/20 History Saline Solution 12/31/19 12/31/19 History Systane (propylene glycol) 1 drp OPHTHALMIC (EYE) Q6 PRN 12/31/19 05/13/20 History furosemide 20 mg PO QAM 12/31/19 05/13/20 History loratadine [Claritin] 10 mg PO QDL 12/31/19 05/13/20 History metoprolol tartrate 50 mg PO BID 12/31/19 05/13/20 History sodium chloride 3 ml INHALATION QID 12/31/19 05/13/20 History venlafaxine 75 mg PO BID 12/31/19 05/13/20 History acetaminophen 650 mg PO Q6 PRN MDD 3 GR/24 HOURS 04/09/20 05/13/20 History famotidine 20 mg PO BID 04/09/20 05/13/20 History ferrous sulfate 325 mg PO QDL 04/09/20 05/13/20 History levothyroxine 125 mcg PO QAM 04/09/20 05/13/20 History pantoprazole [Protonix] 40 mg PO QAM 04/09/20 05/13/20 History cyanocobalamin (vitamin B-12) 1,000 mcg PO QDL 04/18/20 05/13/20 History formoterol fumarate 20 mcg INHALATION BID 04/18/20 05/13/20 History lorazepam 0.5 mg PO Q8H PRN #15 tab 04/26/20 05/13/20 Rx prednisone 10 mg PO DAILY #60 tab 04/26/20 05/13/20 Rx sucralfate 10 ml PO ACHS 30 Days #100 ml 04/26/20 05/13/20 Rx budesonide 0.5 mg INHALATION BID 05/13/20 05/13/20 History sffxwezjqj-rlnswarbzvuye-yxxq 2 cap PO Q6H PRN 05/13/20 05/13/20 History [Fioricet] multivitamin 1 tab PO QDL 05/13/20 05/13/20 History ondansetron HCl [Zofran] 4 mg PO Q6H PRN 05/13/20 05/13/20 History promethazine 25 mg IM Q6H PRN 05/13/20 05/13/20 History promethazine 25 mg PO Q6H PRN 05/13/20 05/13/20 History Past Med/Surg History Medical History Anemia Cancer HX lung and laryngeal cancer Chronic pain syndrome Chronic respiratory failure (Acute) Constipation COPD (chronic obstructive pulmonary disease) Depression with anxiety Dysphagia Elevated hemidiaphragm GERD (gastroesophageal reflux disease) History of breast cancer (Acute) History of ETOH abuse (Acute) History of pneumonia (Acute) aspiration pneumonia in left lower lobe History of radiation therapy Larynx: 02/25/09 - 04/09/09 Hyperlipemia Hypertension Hypothyroidism Insomnia Lactose intolerance (Acute) 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 Dr. Jin in MAIN OR. Lightly sedated patient, suctioned stoma and placed 6.0 ETT through stoma. Secured in place. General with SEVO. History of esophagogastroduodenoscopy (EGD) with steroid injection, esophageal stricture dilation History of laryngectomy 2008 History of radical neck dissection 2008 History of ventral hernia repair (Acute) Tracheostomy status Social History Preferred Language: Kosovan Communication Ability: Effective Visual Impairment: Limited Hearing Ability: Normal [facility] Psychiatrist Required: No Beliefs That Will Affect Care: None marital status: Single Current Living Situation: [facility] Current Living Situation Comment: [facility] current occupational status: retired current occupation: Retired Other Information That Helps Us Care for You: No Feels Safe at Home: Yes Safety Concerns: Feels Safe At This Time Smoking Status: Former smoker Tobacco Type: cigarettes ; Cigarettes Per Day: UP TO 60 ; Second Hand Exposure: No ; Hx Alcohol Use: No Hx Substance Use: No caffeine: Yes (0-1 cup / day ) during the past year weight has: remained stable Review of Systems Constitutional: + fever and + chills; no body aches and no fatigue Respiratory: + cough, + change in sputum, + pain on inspiration and + sputum production; no dyspnea and no hemoptysis Cardiovascular: no chest pain, no dyspnea and no edema Gastrointestinal: + abdominal pain, + nausea and + diarrhea/loose stools; no vomiting, no change in bowel habits and no constipation Genitourinary: no dysuria Physical Exam Constitutional: + ill appearing, + thin, + frail appearing, + disheveled and cooperative; no acute distress, + not appropriately hydrated and + not well groomed Neck: normal visual inspection Respiratory: noisy breathing through tracheostomy, able to speak with finger over tracheostomy, no retractions, some work of breathing, diffuse rhonchorous breath sounds vs. upper airway noises Cardiovascular: Rate/Rhythm: regular rate and regular rhythm Heart Sounds: normal S1 and normal S2; no gallop, no murmur and no cardiac rub Vessels: posterior tibial pulses present Extremities: no pedal edema and no edema Gastrointestinal (Abdomen): Ecchymoses overlying lower abdomen, exquisitely tender to palpation of abdomen, diminished bowel sounds Results & Data Results & Data ([facility]) Vital Signs (Past 12 Hours) Vital Signs Temp Pulse Pulse Resp BP Pulse Ox 05/13/20 20:27 37.3 C 05/13/20 20:01 85 24 05/13/20 20:00 86 27 H 122/71 91 05/13/20 19:31 90 22 88/70 L 05/13/20 19:30 88 17 91 05/13/20 19:01 86 19 05/13/20 19:00 84 21 129/69 05/13/20 18:31 90 24 05/13/20 18:30 88 26 H 117/76 95 05/13/20 18:00 94 H 95 H 28 H 98 05/13/20 17:55 95 H 24 93 05/13/20 17:30 87 24 96 05/13/20 17:28 38 C H 92 H 24 110/67 93 05/13/20 17:20 85 24 96 05/13/20 17:12 85 26 H 108/76 98 Laboratory Results WBC 16.88 K/uL (4.8-10.8) H 05/13/20 17:29 RBC 4.68 M/uL (4.2-5.4) 05/13/20 17:29 Hgb 13.2 g/dL (12.0-16.0) 05/13/20 17:29 Hct 43.2 % (37-47) 05/13/20 17:29 MCV 92.3 fL (80-100) 05/13/20 17:29 MCH 28.2 pg (25-34) 05/13/20 17:29 MCHC 30.6 g/dL (32-36) L 05/13/20 17:29 RDW Std Deviation 52.3 fL (36.4-46.3) H 05/13/20 17:29 RDW Coeff of Eleazar 16.0 % (11.5-14.5) H 05/13/20 17:29 Plt Count 244 K/uL (130-400) 05/13/20 17:29 MPV 9.5 fL (7.4-10.4) 05/13/20 17:29 Immature Gran % (Auto) 0.4 % 05/13/20 17:29 Neut % (Auto) 85.3 % 05/13/20 17:29 Lymph % (Auto) 8.5 % 05/13/20 17:29 [place] % (Auto) 4.6 % 05/13/20 17:29 Eos % (Auto) 1.1 % 05/13/20 17:29 Baso % (Auto) 0.1 % 05/13/20 17:29 Neut # (Auto) 14.41 K/uL (1.4-6.5) H 05/13/20 17:29 Lymph # (Auto) 1.44 K/uL (1.2-3.4) 05/13/20 17:29 [place] # (Auto) 0.77 K/uL (0.11-0.59) H 05/13/20 17:29 Eos # (Auto) 0.18 K/uL (0-0.5) 05/13/20 17: Baso # (Auto) 0.02 K/uL (0-0.2) 05/13/20 17: Immature Gran # (Auto) 0.06 K/uL (0.00-0.02) H 05/13/20 17: PT 10.3 Seconds (9.0-12.0) 05/13/20 17: INR 1.0 (0.9-1.1) 05/13/20 17: APTT 22.3 Seconds (21.0-31.0) 05/13/20 17: PTT Ratio 0.8 05/13/20 17: Sodium 138 mmol/L (136-145) 05/13/20 17: Potassium 4.5 mmol/L (3.5-5.1) 05/13/20 17: Chloride 103 mmol/L (98-107) 05/13/20 17: Carbon Dioxide 29 mmol/L (21-32) 05/13/20 17:29 Anion Gap 6.0 (3-11) 05/13/20 17:29 BUN 19 mg/dl (7-18) H 05/13/20 17:29 Creatinine 1.33 mg/dl (0.6-1.2) H 05/13/20 17:29 Est Cr Clr Drug Dosing 30.1 ml/min 05/13/20 17:29 Est GFR ( Amer) 47.2 05/13/20 17:29 Est GFR (Non-Af Amer) 40.7 05/13/20 17:29 BUN/Creatinine Ratio 14.4 (10-20) 05/13/20 17:29 Glucose 133 mg/dl (70-99) H 05/13/20 17:29 Lactate 1.5 mmol/L (0.4-2.0) 05/13/20 18:04 Calcium 9.1 mg/dl (8.5-10.1) 05/13/20 17:29 Magnesium 2.6 mg/dl (1.8-2.4) H 05/13/20 17:29 Total Bilirubin 0.2 mg/dl (0.2-1) 05/13/20 17:29 AST 21 U/L (15-37) 05/13/20 17:29 ALT 42 U/L (12-78) 05/13/20 17:29 Alkaline Phosphatase 94 U/L (45-117) 05/13/20 17:29 Troponin I < 0.015 ng/ml (0-0.045) 05/13/20 17:29 Total Protein 7.2 gm/dl (6.4-8.2) 05/13/20 17:29 Albumin 3.4 gm/dl (3.4-5.0) 05/13/20 17:29 Globulin 3.8 gm/dl (2.5-4.0) 05/13/20 17:29 Albumin/Globulin Ratio 0.9 (0.9-2) 05/13/20 17:29 Procalcitonin 0.26 ng/ml (0-0.5) 05/13/20 17:29 Nasal Screen MRSA (PCR) Negative (Negative) 05/13/20 23:30 COVID-19 PCR NEGATIVE (Negative) 05/13/20 Unknown Supervising Physician Co-Signing Physician Notes Attending addendum: I have physically seen this patient, have supervised the medical residents activities, and agree with the H&P unless as otherwise noted. Assessment and Plan: Aspiration pneumonitis/right lower lobe consolidation- Neutrophilic leukocytosis Given cefepime 1 g IV in the ED Order CT of chest without contrast to further characterize lower lobes, related to possible pneumonitis, mucous plugging, bronchiectasis, acute infection. Culture secretions. Follow blood cultures and sputum culture and Gram stain. Duonebs every 4 hours while awake and every 2 hours when necessary. Abdominal pain- Ordered KUB which shows ileus versus obstruction with several dilated bowel loops. Ordered CT abdomen pelvis with IV contrast to further assess Hypothyroidism- Levothyroxine 125 mcg daily COPD continue usual inhalers of formoterol and budesonide Anxiety- Continue BuSpar, venlafaxine and lorazepam. Remaining orders and notations as noted. Resident Activity Tracking Resident Involvement: Resident Care Provided Care Provided: Adult Hospital Medicine (1) Leukocytosis Leukocytosis type: unspecified Qualified Code(s): D72.829 - Elevated white blood cell count, unspecified (2) Pneumonia Laterality: right Lung location: lower lobe of lung Pneumonia type: due to unspecified organism Qualified Code(s): J18.9 - Pneumonia, unspecified organism
[2020-05-13] MEDS ORDERED: ONDANSETRON INJ 2 MG/ML 2 ML VIAL IV PRN (22:09)
[2020-05-13] MEDS ORDERED: MAGIC SWIZZLE PO SCH (22:09)
[2020-05-13] MEDS ORDERED: MAGNESIUM HYDROXIDE SUSP 30 ML UDC PO PRN (22:09)
[2020-05-13] MEDS ORDERED: COUGH DROP (SUGAR FREE) LOZ 24 LOZ/1 BOX BUCCAL PRN (22:14)
[2020-05-13] MEDS ORDERED: ONDANSETRON 4 MG OD TAB PO PRN (22:21)
[2020-05-13] MEDS ORDERED: ALUMINUM/MAGNESIUM/SIMETH (MAALOX MAX) 30 ML UDC PO PRN (22:22)
[2020-05-13] MEDS ORDERED: ARTIFICIAL TEARS OP PRN (22:22)
[2020-05-13] MEDS ORDERED: BISMUTH SUBSALICYLATE 262 MG CHEW PO PRN (22:23)
[2020-05-13] MEDS: BUDESONIDE 0.5 MG/2 ML VIAL (PULMICORT) INH SCH (22:50)
[2020-05-13] MEDS: FORMOTEROL 20 MCG/2 ML VIAL INH SCH (22:50)
[2020-05-13] MEDS: SODIUM CHLOR 7% 4 ML NEB INH SCH (22:50)
[2020-05-13] MEDS ORDERED: TRAZODONE HCL 50 MG TAB PO ONE (23:00)
[2020-05-13] MEDS ORDERED: ACETAMINOPHEN 325 MG TAB PO PRN (23:37)
[2020-05-14] MEDS: DOCUSATE SODIUM 100 MG CAP PO SCH ×2 (00:29→20:18)
[2020-05-14] MEDS: BusPIRone 15 MG TAB PO SCH ×4 (00:30→21:40)
[2020-05-14] MEDS: METOPROLOL TARTRATE 50 MG TAB PO SCH ×3 (00:30→20:18)
[2020-05-14] MEDS: SIMETHICONE 80 MG CHEW PO SCH ×5 (00:30→20:20)
[2020-05-14] MEDS: SUCRALFATE 1 GM/10 ML UDC PO SCH ×5 (00:31→20:17)
[2020-05-14] MEDS: FAMOTIDINE 20 MG TAB PO SCH ×3 (00:31→20:19)
[2020-05-14] MEDS: VENLAFAXINE HCL XR 75 MG CAPXR PO SCH ×3 (00:32→20:19)
[2020-05-14] MEDS: ENOXAPARIN INJ 30 MG/0.3 ML SYR SQ SCH ×2 (00:32→21:41)
[2020-05-14] MEDS: Magic Swizzle w/Glycerin 240mL MT SCH ×5 (00:33→20:25)
[2020-05-14] MEDS ORDERED: LORazepam 0.5 MG TAB PO STA (01:06)
[2020-05-14] MEDS ORDERED: LORazepam 0.25 MG/0.5 ML VIAL IV PRN (02:58)
[2020-05-14] MEDS: ALBUT/IPRATROP 3MG/0.5MG NEB 3 ML VIAL NEB SCH ×6 (03:17→23:07)
[2020-05-14] MEDS: AZITHROMYCIN 500 MG in DEXTROSE 5% 250 ML IV SCH (03:42)
[2020-05-14] MEDS: LEVOTHYROXINE SODIUM 125 MCG TABLET PO SCH (05:47)
[2020-05-14] MEDS: SODIUM CHLOR 7% 4 ML NEB INH SCH ×4 (07:03→19:07)
[2020-05-14] MEDS: BUDESONIDE 0.5 MG/2 ML VIAL (PULMICORT) INH SCH ×2 (07:04→19:07)
[2020-05-14] MEDS: FORMOTEROL 20 MCG/2 ML VIAL INH SCH ×2 (07:04→19:07)
[2020-05-14] MEDS: FUROSEMIDE 20 MG TAB PO SCH (08:13)
[2020-05-14] MEDS: CYANOCOBALAMIN 500 MCG TABLET (VITAMIN B-12) PO SCH (08:13)
[2020-05-14] MEDS: PANTOprazole 40 MG TAB PO SCH (08:14)
[2020-05-14] MEDS: guaiFENesin 600 MG TABCR PO SCH ×2 (08:15→20:20)
[2020-05-14] MEDS: POLYETHYLENE (MIRALAX) 17 GM PACK PO SCH (09:10)
[2020-05-14] MEDS: ASPIRIN 81 MG ECTAB PO SCH (09:10)
[2020-05-14 09:56] LABS: Appearance Urine Clear (Clear); Bilirubin Urine Negative (Negative); Blood Urine Negative (Negative); Color Urine Yellow; Glucose Urine UA Negative (Negative); Ketones Urine Negative (Negative); Leukocyte Esterase Urine Trace (Negative); Nitrite Urine Negative (Negative); Protein Urine Negative (Negative); Specific Gravity Urine 1.009 (1.000-1.030); Urobilinogen Urine Negative (Negative); pH Urine 7.5 (4.5-7.5)
--- NOTE | 2020-05-14 10:03 | Hospitalist Progress Note ---
Date of Service May 14, 2020 Assessment & Plan (1) Acute respiratory distress: Yane Maria is a 70yo female with history of Lung CA, 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 She presents from [facility] with complaint of worsening shortness of breath. Of note, she was recently admitted 04/18/20-04/26/20 with the same complaint and was treated for a COPD exacerbation secondary to a PNA with a 10 day course of doxycycline and a 7 day course of IV cefepime. Pneumonitis, recurrent in setting of s/p laryngectomy with tracheostomy - lung sounds on exam diffusely poor, however could be complicated by overlying upper airway sounds from tracheostomy - WBC elevated to 16 on admission, normalized today - procal 0.26 on admission - blood culture pending - tracheal aspirate culture growing staph, awaiting speciation - nasal swab negative for MRSA on admission - CXR on admission showing right lower lobe consolidation - Chest CT with the following impression: 1. Severe emphysema 2. linear right lower lung opacities which are unchanged from earlier exams. These favor scarring. No consolidation to suggest pneumonia. 3. Airway narrowing, most evident within the right mainstem bronchus. 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 - despite CT report, PNA is a clinical diagnosis and we will continue treatment with IV Cefepime (coverage for MSSA, gram negatives including pseudomonas) - speech therapy was consulted during last admission given concern for aspiration PNA; report reads that patient typically eats well and "no aspiration because no trachea" - concern is for aspiration of lower tracheal secretions - No further fever since being here - pulmonary toilet - tracheal suction frequently Abdominal pain - KUB on admission showing lots of air, concern for obstruction with potential for perforation vs. constipation - CT abd/Pelv ordered showing non-obstructive ileus, possibly secondary to an enteritis. Progressive inhomogeneity of the spleen raising the possibility of vascular insults versus metastatic change - US of spleen in an attempt to further characterize. Consider CTA of abdomen if vascular etiology is suspected - patient with appetite, no N/V - continued home bowel regimen support IZABEL on CKD, resolved - Cr 1.33 on admission, down to 1.26 today - baseline Cr 1.2 HTN - metoprolol 50 mg BID Hypothyroidism -125 mcg levothyroxine COPD formoterol fumartate 20 mcg BID budesonide 0.5 mg BID anxiety -buspar 15 mg TID - venlafaxine 75 mg BID - lorazepam 0.5 PO Q8 PRN at home DVt ppx: lovenox FEN/GI: NPO Code status: full code Dispo: Med/Surg (2) Pneumonia: (3) Leukocytosis: (4) Acute and chronic respiratory failure with hypoxia: (5) Chronic kidney disease, stage 3a: (6) Laryngeal cancer: (7) Tracheostomy present: Admission and Anticipated Discharge Date Admission Date: May 13, 2020 Supervising Physician Co-Signing Physician Notes Resident Physician Supervision Note: I independently interviewed and examined the patient and verified the mccabe history and physical, reviewed labs and image studies, discussed the case with the resident Dr. Causey and agree with the findings and care plan. Subjective Patient reports feeling no different from admission. She expresses a desire to eat. Review of Systems Respiratory: + change in sputum (increased ) Physical Exam Constitutional: WD/WN, vitals as above + frail appearing and cooperative Eyes: + anicteric sclerae ENMT: external ear and nose normal, oropharynx normal Neck: normal visual inspection and trachea midline Respiratory: normal respiratory effort Auscultation: + rhonchi Trach collar without flutter valve in place. Cardiovascular: RRR, no murmur, no edema Extremities: no pedal edema Gastrointestinal (Abdomen): Inspection/Auscultation: + abdomen distended and normal bowel sounds Percussion/Palpation: + abdomen tender and abdomen soft; no guarding Skin: no rashes, warm and dry Psychiatric: A+Ox3, euthymic affect Results & Data Results & Data ([facility]) Vital Signs (Past 12 Hours) Vital Signs Temp Pulse Pulse Resp BP BP Pulse Ox 05/14/20 07:34 60 18 111/62 97 05/14/20 07:04 60 16 96 05/14/20 03:18 59 L 14 95 05/14/20 02:57 36.5 C 60 19 102/69 92 05/13/20 23:21 36.7 C 76 22 121/75 95 05/13/20 22:54 84 20 99 05/13/20 22:27 84 20 96 05/13/20 22:12 37.7 C H 83 18 105/56 L 97 Resident Activity Tracking Resident Involvement: Resident Care Provided Care Provided: Adult Hospital Medicine (1) Leukocytosis Leukocytosis type: unspecified Qualified Code(s): D72.829 - Elevated white blood cell count, unspecified (2) Pneumonia Laterality: right Lung location: lower lobe of lung Pneumonia type: due to unspecified organism Qualified Code(s): J18.9 - Pneumonia, unspecified organism
[2020-05-14 10:50] LABS: Bacteria Urine Negative (Negative); RBC Urine 0-4 /hpf (0-4)
[2020-05-14] MEDS: MULTIVITAMIN TAB PO SCH (11:39)
[2020-05-14] MEDS: LORATADINE 10 MG TAB PO SCH (11:39)
[2020-05-14] MEDS: BUTALBITAL/ACETAMIN/CAFFEINE TAB PO PRN ×2 (11:40→17:15)
[2020-05-14] MEDS ORDERED: IOVERSOL 100ml IV PRN (12:52)
--- NOTE | 2020-05-14 13:17 | CT Scan Report ---
CT OF THE CHEST WITH IV CONTRAST CLINICAL HISTORY: SOB, pna vs pneumonitis COMPARISON STUDY: Chest CT April 18, 2020. Chest radiograph May 13, 2020. TECHNIQUE: Following IV administration of 94 mL of Optiray-320, helical axial images of the chest we re obtained. Sagittal and coronal reconstructions were viewed as well as maximal intensity projectio ns on an independent 3-D workstation. Automated exposure control was utilized for the study. A dose lowering technique was utilized adhering to the principles of ALARA. CT DOSE: 451.87 mGy.cm FINDINGS: There is no thoracic aortic dissection. Size of the heart is normal. There is no pericardi al effusion. Prominent right hilar lymph nodes are unchanged from earlier exams. These are probably b enign. A 9 mm partially calcific focus within the right lower lobe on image 119 of 256 is unchanged. This could reflect a treated lesion. Linear right lower lobe opacity is unchanged. This favors scarri ng. There are severe emphysema. Is no consolidation to suggest pneumonia. No pneumothorax or pleural effusion is noted. No suspicious lesion within the bony thorax is noted. There is a tracheostomy. Sec retions within the trachea and right mainstem bronchus are noted. Mild bronchial wall thickening is n oted. Narrowing of the bilateral mainstem bronchi, greater on the right, is again noted. Abdomen and pelvis will be reported separate. Splenic hypodensities are unchanged from earlier exams. These are l ikely benign. A right hepatic lobe lesion is also unchanged. IMPRESSION: 1. Severe emphysema. 2. Linear right lower lung opacities which are unchanged from earlier exams. These favor scarring. No consolidation to suggest pneumonia. 3. Airway narrowing, most evident within the right mainstem bronchus. This could reflect tracheobronc homalacia. ACT 112: Negative or not required by law. Electronically signed by: Aneesh Carney M.D. 05/14/2020 1:15 PM
--- NOTE | 2020-05-14 13:21 | CT Scan Report ---
CT abd pelvis IV con only CT DOSE: HISTORY: Pain abdominal pain, TECHNIQUE: Multiaxial CT images of the abdomen and pelvis were performed following the use of intrave nous contrast. A dose lowering technique was utilized adhering to the principles of ALARA. COMPARISON STUDY: 04/25/2020 FINDINGS: Right basilar nodularity and atelectasis minimally progressive compared to the prior study. Hypodense nodule posterior right hepatic lobe is unchanged. There is otherwise uniform. The kidneys enhance uniformly. Spleen now demonstrates persistent inhomogeneous enhancement characteristics with linear foci of dimi nished density of the superior and medial aspect of the spleen. Possibly metastatic disease is not ex cluded. Pancreas is unremarkable. The adrenal glands are normal. Upper abdominal bowel pattern suggesting nonobstructive ileus. There is evidence for diminished caliber of a mildly distended loop of small bowel within the anterio r paravertebral region of the low lumbar spine. An obstructing mass is not identified. Bladder is midline. IMPRESSION: 1. Generalized nonobstructive ileus. 2. Long segment tapered narrowing of a loop of mid small bowel of uncertain significance. 3. Possible mild small bowel enteritis. 4. Progressive inhomogeneity of the spleen raising the possibility of vascular insults versus metasta tic change. 5. Mildly progressive nodularity and atelectasis right and to a lesser extent left lung base. ACT 112: Negative or not required by law. The above report was generated using voice recognition software. It may contain grammatical, syntax or spelling errors. Electronically signed by: Kain Cruz M.D. 05/14/2020 1:20 PM
[2020-05-14 14:16] LABS: Basophils # (auto) 0.02 K/uL (0-0.2); Basophils % (auto) 0.2 %; Eosinophils # (auto) 0.33 K/uL (0-0.5); Eosinophils % (auto) 3.5 %; Hematocrit (blood only) 40.4 % (37-47); Hemoglobin 12.6 g/dL (12.0-16.0); Immature Granulocytes # (auto) 0.03 K/uL (0.00-0.02); Immature Granulocytes % (auto) 0.3 %; Lymphocytes # (auto) 1.66 K/uL (1.2-3.4); Lymphocytes % (auto) 17.6 %; Mean Corpuscular Hemoglobin 28.2 pg (25-34); Mean Corpuscular Hgb Conc 31.2 g/dL (32-36); Mean Corpuscular Volume 90.4 fL (80-100); Mean Platelet Volume 9.5 fL (7.4-10.4); Monocytes # (auto) 0.78 K/uL (0.11-0.59); Monocytes % (auto) 8.3 %; Neutrophils % (auto) 70.1 %; Platelet Count 223 K/uL (130-400); RDW Coefficient of Variation 16.1 % (11.5-14.5); Red Blood Count 4.47 M/uL (4.2-5.4); White Blood Count 9.42 K/uL (4.8-10.8)
[2020-05-14 14:29] LABS: Calcium 8.6 mg/dl (8.5-10.1); Creatinine Clr Calc Pharmacy 30.3 ml/min; Est GFR (African American) 50.3; Est GFR (Non-African American) 43.4; Potassium 3.9 mmol/L (3.5-5.1)
--- NOTE | 2020-05-14 15:59 | Electrocardiogram Report ---
Test Reason : Blood Pressure : / mmHG Vent. Rate : 093 BPM Atrial Rate : 093 BPM P-R Int : 118 ms QRS Dur : 068 ms QT Int : 374 ms P-R-T Axes : 057 055 068 degrees QTc Int : 465 ms Normal sinus rhythm Normal ECG When compared with ECG of 18-APR-2020 15:20, No significant change was found Confirmed by Ricardo Adam ([id number]) on 05/14/2020 3:59:26 PM Referred By: [facility] Confirmed By:Ricardo Adam
[2020-05-14] MEDS: LORazepam 0.5 MG TAB PO PRN (16:31)
[2020-05-15] MEDS: ALBUT/IPRATROP 3MG/0.5MG NEB 3 ML VIAL NEB SCH ×4 (03:24→15:15)
--- NOTE | 2020-05-15 05:20 | Billing Data ---
Date of Service May 15, 2020 Coding Level of Care Code 62766 Initial Inpt Care Lvl 3
[2020-05-15] MEDS: LEVOTHYROXINE SODIUM 125 MCG TABLET PO SCH (05:43)
[2020-05-15] MEDS: BUTALBITAL/ACETAMIN/CAFFEINE TAB PO PRN ×2 (06:06→16:41)
[2020-05-15] MEDS: LORazepam 0.5 MG TAB PO PRN ×2 (06:06→12:20)
[2020-05-15] MEDS: FORMOTEROL 20 MCG/2 ML VIAL INH SCH (07:02)
[2020-05-15] MEDS: SODIUM CHLOR 7% 4 ML NEB INH SCH ×3 (07:02→15:15)
[2020-05-15] MEDS: BUDESONIDE 0.5 MG/2 ML VIAL (PULMICORT) INH SCH (07:02)
[2020-05-15] MEDS: BusPIRone 15 MG TAB PO SCH ×2 (07:36→15:51)
[2020-05-15] MEDS: FUROSEMIDE 20 MG TAB PO SCH (07:36)
[2020-05-15] MEDS: SIMETHICONE 80 MG CHEW PO SCH ×3 (07:37→16:42)
[2020-05-15] MEDS: PANTOprazole 40 MG TAB PO SCH (07:37)
[2020-05-15] MEDS: CYANOCOBALAMIN 500 MCG TABLET (VITAMIN B-12) PO SCH (07:37)
[2020-05-15] MEDS: guaiFENesin 600 MG TABCR PO SCH (07:38)
[2020-05-15] MEDS: ASPIRIN 81 MG ECTAB PO SCH (07:39)
[2020-05-15] MEDS: LORATADINE 10 MG TAB PO SCH (07:39)
[2020-05-15] MEDS: FAMOTIDINE 20 MG TAB PO SCH (07:41)
[2020-05-15] MEDS: SUCRALFATE 1 GM/10 ML UDC PO SCH ×3 (07:41→16:41)
[2020-05-15] MEDS: VENLAFAXINE HCL XR 75 MG CAPXR PO SCH (07:41)
[2020-05-15] MEDS: POLYETHYLENE (MIRALAX) 17 GM PACK PO SCH (07:41)
[2020-05-15] MEDS: METOPROLOL TARTRATE 50 MG TAB PO SCH (07:42)
[2020-05-15] MEDS: Magic Swizzle w/Glycerin 240mL MT SCH ×3 (07:53→16:39)
[2020-05-15] MEDS: AZITHROMYCIN 500 MG in DEXTROSE 5% 250 ML IV SCH (07:54)
[2020-05-15 08:05] LABS: Basophils # (auto) 0.02 K/uL (0-0.2); Basophils % (auto) 0.2 %; Eosinophils # (auto) 0.53 K/uL (0-0.5); Eosinophils % (auto) 5.9 %; Hematocrit (blood only) 39.4 % (37-47); Hemoglobin 12.3 g/dL (12.0-16.0); Immature Granulocytes # (auto) 0.01 K/uL (0.00-0.02); Immature Granulocytes % (auto) 0.1 %; Lymphocytes # (auto) 1.65 K/uL (1.2-3.4); Lymphocytes % (auto) 18.2 %; Mean Corpuscular Hemoglobin 28.5 pg (25-34); Mean Corpuscular Hgb Conc 31.2 g/dL (32-36); Mean Corpuscular Volume 91.2 fL (80-100); Mean Platelet Volume 9.6 fL (7.4-10.4); Monocytes % (auto) 6.6 %; Neutrophils # (auto) 6.24 K/uL (1.4-6.5); Platelet Count 238 K/uL (130-400); RDW Coefficient of Variation 16.1 % (11.5-14.5); RDW Standard Deviation 53.1 fL (36.4-46.3); Red Blood Count 4.32 M/uL (4.2-5.4); White Blood Count 9.05 K/uL (4.8-10.8)
[2020-05-15 08:30] LABS: BUN Creatinine Ratio 9.8 (10-20); Calcium 8.6 mg/dl (8.5-10.1); Creatinine Clr Calc Pharmacy 31.8 ml/min; Est GFR (African American) 53.4; Est GFR (Non-African American) 46.1
[2020-05-15] MEDS ORDERED: predniSONE 10 MG TABLET PO SCH (09:00)
--- NOTE | 2020-05-15 09:19 | Ultrasound Report ---
US abdomen limited HISTORY: 70 years-old Female Spleen findings on CT scan follow-up study to assess the spleen which w as previously described as heterogeneous COMPARISON: CT abdomen and pelvis 05/14/2020, 04/25/2020 TECHNIQUE: Multiple real-time sonographic images of the abdomen were obtained assessing grayscale linda earance. FINDINGS: Spleen is mildly enlarged measuring 13.3 cm in length and demonstrates nonspecific mild heterogeneity without focal mass identified. No ascites or aneurysm. The imaged left kidney is unremarkable. IMPRESSION: Mild splenomegaly with nonspecific parenchymal heterogeneity. No splenic mass or perisple melinda collection identified. ACT 112: Negative or not required by law. The above report was generated using voice recognition software. It may contain grammatical, syntax o r spelling errors. Electronically signed by: Brad Limon M.D. 05/15/2020 9:18 AM
[2020-05-15] MEDS: MULTIVITAMIN TAB PO SCH (12:15)
--- NOTE | 2020-05-15 13:55 | Discharge Summary ---
Date of Service May 15, 2020 Admission HPI Per Admitting Provider 70 yo F w/ hx Acute on Chromic respiratory failure with hypoxia, permanent trach collar, CKD stage 3a, laryngeal cancer, COPD, who presents from [facility] for complaints of SOB for the past few days. States she's had worsening cough with thick green mucus production and pain with inspiration. Was told she had a fever >100 by nursing aides, has been feeling chills. Also attests to nausea but denies any episodes of emesis. Admission Exam Per Admitting Provider Constitutional: + ill appearing, + thin, + frail appearing, + disheveled and c ooperative; no acute distress, + not appropriately hydrated and + not well groomed Neck: normal visual inspection Respiratory: noisy breathing through tracheostomy, able to speak with finger over tracheostomy, no retractions, some work of breathing, diffuse rhonchorous breath sounds vs. upper airway noises Cardiovascular: Rate/Rhythm: regular rate and regular rhythm Heart Sounds: normal S1 and normal S2; no gallop, no murmur and no cardiac rub Vessels: posterior tibial pulses present Extremities: no pedal edema and no edema Gastrointestinal (Abdomen): Ecchymoses overlying lower abdomen, exquisitely tender to palpation of abdomen, diminished bowel sounds Principal Diagnosis Pneumonia Discharge Exam Constitutional WD/WN, vitals as above + frail appearing and cooperative Eyes + anicteric sclerae ENMT external ear and nose normal, oropharynx normal Neck normal visual inspection and trachea midline Respiratory normal respiratory effort Auscultation: + rhonchi Cardiovascular RRR, no murmur, no edema Extremities: no pedal edema Gastrointestinal (Abdomen) Inspection/Auscultation: + abdomen distended and normal bowel sounds Percussion/Palpation: + abdomen tender and abdomen soft; no guarding Skin no rashes, warm and dry Psychiatric A+Ox3, euthymic affect Discharge Data Allergies Allergy/AdvReac Type Severity Reaction Status Date / Time alendronate sodium Allergy Unknown ON CENTRE Verified 05/13/20 18:15 CREST MED LIST penicillin V Allergy Unknown ON CENTRE Verified 05/13/20 18:15 CREST MED LIST sulfadiazine Allergy Unknown ON CENTRE Verified 05/13/20 18:15 CREST MED LIST Consultations 05/13/20 21:59 ED Decision to Admit Stat 05/13/20 22:09 Consult Case Management - Discharge Planning Routine Ordered Studies 05/13/20 20:34 CT abd pelvis IV con only Urgent 05/14/20 02:55 CT chest w con Routine 05/14/20 17:16 US abdomen limited Routine Hospital Course (1) Acute respiratory distress: Yane Maria is a 70yo female with history of Lung CA, 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 She presents from [facility] with complaint of worsening shortness of breath. Of note, she was recently admitted 04/18/20-04/26/20 with the same complaint and was treated for a COPD exacerbation secondary to a PNA with a 10 day course of doxycycline and a 7 day course of IV cefepime. Pneumonitis, recurrent in setting of s/p laryngectomy with tracheostomy - lung sounds on exam diffusely poor, however could be complicated by overlying upper airway sounds from tracheostomy - febrile on arrival, no further fevers - WBC elevated to 16 on admission, normalized by day of discharge - procal 0.26 on admission - blood cultures showing no growth by day of discharge - tracheal aspirate culture growing staph aureus. felt to be a contaminate, as staph not a typical respiratory pathogen and patient places finger over trach frequently to speak - nasal swab negative for MRSA on admission - CXR on admission showing right lower lobe consolidation - Chest CT with the following impression: 1. Severe emphysema 2. linear right lower lung opacities which are unchanged from earlier exams. These favor scarring. No consolidation to suggest pneumonia. 3. Airway narrowing, most evident within the right mainstem bronchus. 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 - despite CT report, PNA is a clinical diagnosis and we will continue treatment with antibiotics. Despite living in a SNF, clinically seems to represent a CAP. - convert IV cefepime to PO azithromycin - speech therapy was consulted during last admission given concern for aspiration PNA; report reads that patient typically eats well and "no aspiration because no trachea" - our concern is for recurrent aspiration of lower tracheal secretions - continue daily Mucinex - patient would benefit from frequent, regular suctioning of tracheostomy Outpatient items to do: Please suction tracheostomy [id number] (except overnight) when patient returns to [facility]. Continue Azithromycin 250mg, by mouth, daily for 2 days after discharge. Abdominal pain - KUB on admission showing lots of air, concern for obstruction with potential for perforation vs. constipation - CT abd/Pelv ordered showing non-obstructive ileus, possibly secondary to an enteritis. Progressive inhomogeneity of the spleen raising the possibility of vascular insults versus metastatic change - US of spleen provided no further delineation of the above processes - patient with biopsy confirmed lymphocytic colitis in 2012 - strong appetite, no N/V, normal BMs while in hospital - patient was evaluated by [facility] during April 2020 admission; an EGD with stricture dilation was performed. Patient was advised to continue her PPI twice daily and start carafate four times daily. Colonoscopy was recommended as outpatient in the future. - continued home bowel regimen support - although resolution of the abdominal pain was not achieved by day of discharge, there was no evidence of an acute process on imaging/labs Outpatient items to do: Continue PPI twice daily. Continue Carafate, four times daily. Consider initiating questran, daily. Colonoscopy with [facility] as outpatient. IZABEL on CKD, resolved - Cr 1.33 on admission, returned to baseline by day of discharge HTN - metoprolol 50 mg BID Hypothyroidism -125 mcg levothyroxine COPD formoterol fumartate 20 mcg BID budesonide 0.5 mg BID anxiety -buspar 15 mg TID - venlafaxine 75 mg BID - lorazepam 0.5 PO Q8 PRN at home (2) Pneumonia: (3) Leukocytosis: (4) Acute and chronic respiratory failure with hypoxia: (5) Chronic kidney disease, stage 3a: (6) Laryngeal cancer: (7) Tracheostomy present: Total Time Total Time Spent Total Time Spent (In Minutes): see attending attestation Discharge Plan Discharge Items Patient Disposition: Trans Resident Long-Term Care Reason For Visit: SOB Discharge Diagnosis: Pneumonia Condition on Discharge: Fair Activity: Resume your previous activity Non-emergency contact: Primary Care Provider Call non-emergency contact if: your symptoms worsen and you have a fever Follow-up/Referrals: [facility] [Primary Care Provider] - Diet: Regular Addtl Attending Provider Instructions: Yane Maria is a 70yo female with history of Lung CA, 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 She presents from [facility] with complaint of worsening shortness of breath. Of note, she was recently admitted 04/18/20-04/26/20 with the same complaint and was treated for a COPD exacerbation secondary to a PNA with a 10 day course of doxycycline and a 7 day course of IV cefepime. Pneumonitis, recurrent in setting of s/p laryngectomy with tracheostomy - lung sounds on exam diffusely poor, however could be complicated by overlying upper airway sounds from tracheostomy - febrile on arrival, no further fevers - WBC elevated to 16 on admission, normalized by day of discharge - procal 0.26 on admission - blood cultures showing no growth by day of discharge - tracheal aspirate culture growing staph aureus. felt to be a contaminate, as staph not a typical respiratory pathogen and patient places finger over trach frequently to speak - nasal swab negative for MRSA on admission - CXR on admission showing right lower lobe consolidation - Chest CT with the following impression: 1. Severe emphysema 2. linear right lower lung opacities which are unchanged from earlier exams. These favor scarring. No consolidation to suggest pneumonia. 3. Airway narrowing, most evident within the right mainstem bronchus. 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 - despite CT report, PNA is a clinical diagnosis and we will continue treatment with antibiotics. Despite living in a SNF, clinically seems to represent a CAP. - convert IV cefepime to PO azithromycin - speech therapy was consulted during last admission given concern for aspiration PNA; report reads that patient typically eats well and "no aspiration because no trachea" - our concern is for recurrent aspiration of lower tracheal secretions - continue daily Mucinex - patient would benefit from frequent, regular suctioning of tracheostomy Outpatient items to do: Please suction tracheostomy [id number] (except overnight) when patient returns to [facility]. She may eat a regular diet. Continue Azithromycin 250mg, by mouth, daily for 2 days after discharge. Please get patient a high flow nasal cannula oxygen filler blender with an adapter for a tracheostomy. Abdominal pain - KUB on admission showing lots of air, concern for obstruction with potential for perforation vs. constipation - CT abd/Pelv ordered showing non-obstructive ileus, possibly secondary to an enteritis. Progressive inhomogeneity of the spleen raising the possibility of vascular insults versus metastatic change - US of spleen provided no further delineation of the above processes - patient with biopsy confirmed lymphocytic colitis in 2012 - strong appetite, no N/V, normal BMs while in hospital - patient was [facility] during April 2020 admission; an EGD with stricture dilation was performed. Patient was advised to continue her PPI twice daily and start carafate four times daily. Colonoscopy was recommended as outpatient in the future. - continued home bowel regimen support - although resolution of the abdominal pain was not achieved by day of discha rge, there was no evidence of an acute process on imaging/labs Outpatient items to do: Continue PPI twice daily. Continue Carafate, four times daily. Consider initiating questran, daily. Colonoscopy with [facility] as outpatient. IZABEL on CKD, resolved - Cr 1.33 on admission, returned to baseline by day of discharge HTN - metoprolol 50 mg BID Hypothyroidism -125 mcg levothyroxine COPD formoterol fumartate 20 mcg BID budesonide 0.5 mg BID anxiety -buspar 15 mg TID - venlafaxine 75 mg BID - lorazepam 0.5 PO Q8 PRN at home Pending Studies at Discharge: No Stand-Alone Forms: [facility] Skilled Items Patient informed of condition?: Yes DNR: No Discharge Level of Care: Skilled Communicable Disease: No Discharge Prognosis: Stable Lines: None Urinary Catheter: No Medications and DC Order Prescriptions: New azithromycin 250 mg tablet 250 mg PO DAILY 2 Days Qty: 2 RF: 0 Continued docusate sodium [Colace] 100 mg capsule 200 mg PO HS RF: 0 aspirin 81 mg Tablet,Chewable 81 mg PO QAM RF: 0 bismuth subsalicylate 525 mg/15 mL Suspension 525 mg PO Q6H PRN (Reason: nausea/diarrhea) RF: 0 buspirone 15 mg Tablet 15 mg PO TID RF: 0 Cepacol Sore Throat (luiza-men) 15-2.6 mg Lozenge 1 flo PO Q4H PRN (Reason: Sore Throat) RF: 0 Magic Swizzle 20 ml PO QID RF: 0 simethicone [Gas Relief 80 (simethicone)] 80 mg Tablet,Chewable 80 mg PO QID RF: 0 potassium chloride [Klor-Con M10] 10 mEq Tablet,Er Particles/Crystals 10 meq PO QAM RF: 0 venlafaxine 37.5 mg capsule,extended release 24hr 75 mg PO BID RF: 0 furosemide 20 mg Tablet 20 mg PO QAM RF: 0 metoprolol tartrate 50 mg Tablet 50 mg PO BID RF: 0 loratadine [Claritin] 10 mg Tablet 10 mg PO QDL RF: 0 (DME) Saline Solution Solution MISCELLANEOUS RF: 0 Systane (propylene glycol) 0.4-0.3 % Drops 1 drp OPHTHALMIC (EYE) Q6 PRN (Reason: Dry Eyes) RF: 0 sodium chloride 7 % solution for nebulization 3 ml inhalation QID RF: 0 [id number]-irom [Fioricet] 50-300-40 mg Capsule 2 cap PO Q6H PRN (Reason: Headache) RF: 0 multivitamin Tablet 1 tab PO QDL RF: 0 budesonide 0.5 mg/2 mL suspension for nebulization 0.5 mg inhalation BID RF: 0 ondansetron HCl [Zofran] 4 mg Tablet 4 mg PO Q6H PRN (Reason: Nausea And Vomiting) RF: 0 promethazine 25 mg/mL Solution 25 mg IM Q6H PRN (Reason: Nausea And Vomiting) RF: 0 promethazine 25 mg Tablet 25 mg PO Q6H PRN (Reason: Nausea And Vomiting) RF: 0 lorazepam 0.5 mg Tablet 0.5 mg PO Q8H PRN (Reason: anxiety) Qty: 15 RF: 0 alum-mag hydroxide-simeth [Maalox Advanced] 200-200-20 mg/5 mL Suspension 30 ml PO Q8H PRN (Reason: Acid Reflux) RF: 0 acetaminophen 650 mg Tablet Extended Release 650 mg PO Q6 MDD 3 GR/24 HOURS PRN (Reason: FEVER/PAIN) RF: 0 famotidine 20 mg Tablet 20 mg PO BID RF: 0 pantoprazole [Protonix] 40 mg Tablet,Delayed Release (Dr/Ec) 40 mg PO QAM RF: 0 ferrous sulfate 325 mg (65 mg iron) Tablet 325 mg PO QDL RF: 0 levothyroxine 125 mcg Tablet 125 mcg PO QAM RF: 0 formoterol fumarate 20 mcg/2 mL Solution For Nebulization 20 mcg INHALATION BID RF: 0 cyanocobalamin (vitamin B-12) 1,000 mcg capsule 1,000 mcg PO QDL RF: 0 sucralfate 100 mg/mL Suspension 10 ml PO ACHS 30 Days Qty: 100 RF: 0 prednisone 10 mg tablet 10 mg PO DAILY Qty: 60 RF: 0 Discharge Orders: Discharge Order (Routine); Ordered 05/15/20 Ordered By: Alysia Causey Admission Data Admit Date/Time: 05/13/20 21:01 Attending Provider: Kaylah Oscar Admit Provider: Melina Borrego Primary Care Provider: Tyrese Alcantar Other Providers: Ihsan Sorto Other Interventions: Discharge Summary Assessment (RN) Last Done: 05/15/20 15:24 DC Date/Time DO NOT enter until pt leaves facility: 05/15/20 18:00 Supervising Physician Co-Signing Physician Notes Resident Physician Supervision Note: I independently interviewed and examined the patient and verified the mccabe history and physical, reviewed labs and image studies, discussed the case with the resident Dr. Causey and agree with the findings and care plan. Time spent in discharge 35 min Resident Activity Tracking Resident Involvement: Resident Care Provided Care Provided: Adult Hospital Medicine
--- NOTE | 2020-06-01 06:02 | Coding Query ---
CODING QUERY To promote full compliance with coding requirements relating to patient care, provider participation is requested in all cases of hazard mitigation officer uncertainty. Please assist us with the question(s) below: Coding Question(s): Can you please clarify the etiology of this patient's pneumonia? (ie CAP, HCAP, aspiration PNA, tracheostomy complication, etc.) Physician's Response(s): Hi, yes it was an Aspiration PNA. Thank you Yokasta Myles Principal Diagnosis: "that condition established after study, to be chiefly responsible for occasioning the admission of the patient to the hospital for care." Co-Existing Principal Diagnosis: "when two or more diagnoses equally meet the criteria for principal diagnosis as determined by the circumstances of admission, diagnostic work up, and/or therapy provided, and the Alphabetic Index, Tabular List, or another coding guideline does not provide sequencing direction, any one of the diagnoses may be sequenced first." "When the physician has documented what appears to be a current diagnosis in the body of the record, but has not included the diagnosis in the final diagnostic statement, the physician should be asked whether the diagnosis should be added." (Source Coding Clinic 2 QTR90. p3-4) RAFAL
== END 2020-05-15 18:00 | DRG 177 ==
LOC: ED 17:05 → SUATTDRO 21:01 → 2N 21:01

== ENCOUNTER 2021-09-30 18:33 | Inpatient (IN) ==
[2021-09-30] MEDS ORDERED: ALBUT/IPRATROP 3MG/0.5MG NEB 3 ML VIAL NEB STA (18:46)
--- NOTE | 2021-09-30 18:46 | Emergency Department Note ---
Impression & Plan Acute hypoxemic respiratory failure, Pneumonia, Elevated lactic acid level, Sepsis ED Provider Note NAME: TRUONG MEJIA AGE: 71 SEX: F : 1950 ARRIVES VIA: Ambulance INFORMANT: Patient, ED PROVIDER(S): Tulio Collado MD Chief Complaint: Shortness of breath, hypoxemia HPI: Limited history is obtained from the patient given clinical continue acuity and stoma. 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 Chandra chronically noncompliant with stoma care recurrent COPD hypertension hypothyroidism. Patient does reside at [facility] per report the patient was in the 70s on room air and was placed on trach collar with oxygen. Patient reportedly has been short of breath with associated productive cough with sputum coming from the stoma area. Patient also was reportedly febrile. ROS: Unable to obtain secondary to clinical acuity. Past medical history: See below Surgical history: See below Social history: See below Physical Exam: GENERAL: Ill in appearance, tachypnea noted. EYE EXAM: Normal conjunctiva. PERRL, no anisocoria and EOM's grossly intact w/o pain. OROPHARYNX: Dry mucus membranes. Edentulous. NECK: Supple, no nuchal rigidity, no adenopathy, non-tender. No signs of meningismus. Stoma in place with sputum noted. LUNGS: Coarse sounds throughout. Tachypneic. HEART: NSR, no MRG. ABDOMEN: Abdomen soft, non-tender, normo-active bowel sounds, no masses, no rebound or guarding. BACK: No CVA TTP. SKIN: No rashes and no bruising. UPPER EXTREMITIES: Upper extremities are grossly normal. LOWER EXTREMITIES: Grossly normal, no edema. NEURO EXAM: Awake and alert, moves all 4 extremities. Differential diagnoses: Reactive airway disease, pneumonia, pneumothorax, COPD, CHF, infections, cardiac ischemia, pulmonary embolism, musculoskeletal, gastrointestinal, as well as other pathologies. Course: Patient was seen and evaluated the bedside. Full history physical exam was performed. EKG interpreted by me Significant motion artifact noted. Normal sinus rhythm, rate of 99, normal intervals, normal axis. Imaging Studies: See Below Cardiac monitoring: An order was placed for continuous cardiac monitoring. The monitor shows a rate of 98 with sinus rhythm. Procedures: Trach placement performed by Dr. Collado Indication: Stoma without trach Verbal consent was obtained from the patient. The patient did have a 4.0 Shiley placed. Introducer was removed. Patient was suctioned. No complications. Trach was secured by respiratory. Patient was satting well with trach collar in place. MDM: Patient was seen due to concern for respiratory distress and hypoxia with a known history of stoma plus placement for prior history of neck cancer. Patient had normal white count H&H and platelet count. The patient's kidney function unremarkable. Patient does have elevated lactate 3.9. The patient was given 1500 fluid bolus 30 cc/kg bolus. Troponin undetectable. Chest x-ray does show likely right-sided pneumonia. Urinalysis does have bacteria but with numerous epithelial cells. Bio fire was negative. The patient did receive cefepime as the patient has received it before. ABG was ordered and the patient was admitted to the medicine service. Critical Care: I have personally spent 65 minutes of critical care time in direct management of this patient. This includes bedside care, interpretation of diagnostic studies, and testing, discussion with consultants, patient, and family members, and other require inpatient management activities. This 65 minutes is in excess of all separately billable procedures. Past Med/Surg History Medical History Anemia Cancer Hx breast, lung and laryngeal cancer (larynx radiation, laryngectomy 2008) Chronic pain syndrome Chronic respiratory failure Constipation COPD (chronic obstructive pulmonary disease) Depression with anxiety Dysphagia Elevated hemidiaphragm GERD (gastroesophageal reflux disease) Hyperlipemia Hypertension Hypothyroidism Insomnia Muscle weakness Generalized On home oxygen therapy 2L via trach mask Osteoarthritis Tracheostomy in place Surgical History History of bronchoscopy History of section 1978 x 1 History of cholecystectomy History of colonoscopy History of esophagogastroduodenoscopy (EGD) 2018 History of esophagogastroduodenoscopy (EGD) with steroid injection, esophageal stricture dilation History of laryngectomy 2008 History of radical neck dissection 2008 History of ventral hernia repair 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 Family/Other Prostate cancer Sister , Passed age 64 of MS No problems noted. Sister No problems noted. Sister No problems noted. Sister No problems noted. Brother No problems noted. Son , Passed as child in MVA No problems noted. Son , Passed as child in MVA No problems noted. Son No problems noted. Son No problems noted. Daughter No problems noted. Social History Smoking Status: Unknown if ever smoked Years Smoked: 40; Cigarettes Per Day: 3 ppd, 40 pack year history, quit 2008; Second Hand Exposure: No; Preferred Language: Chilean Communication Ability: Unable Visual Impairment: Limited Hearing Ability: Normal Laboratory Chemist Required: No Beliefs That Will Affect Care: None marital status: Single Current Living Situation: Intermediate Current Living Situation Comment: resides at [facility] current occupational status: retired current occupation: Retired Feels Safe at Home: Yes caffeine: Yes (0-1 cup / day ) during the past year weight has: remained stable Assistive Devices: Denture - Upper, Denture - Lower and Oxygen - Continuous Allergies Allergies Allergy/AdvReac Type Severity Reaction Status Date / Time alendronate sodium Allergy Unknown ON CENTRE Verified 09/30/21 19:29 CREST MED LIST penicillin V Allergy Unknown ON CENTRE Verified 09/30/21 19:29 CREST MED LIST sulfadiazine Allergy Unknown ON CENTRE Verified 09/30/21 19:29 CREST MED LIST Home Meds Home Medications Medication Instructions Recorded Confirmed aspirin 81 mg chewable tablet 81 mg PO DAILY 07/29/19 09/30/21 simethicone 80 mg chewable tablet 80 mg PO QID 07/30/19 09/30/21 (Gas Relief 80 (simethicone)) potassium chloride 10 mEq 10 meq PO DAILY 09/19/19 09/30/21 tablet,extended release(part/cryst) (Klor-Con M) furosemide 20 mg tablet 20 mg PO QAM 12/31/19 09/30/21 metoprolol tartrate 50 mg tablet 50 mg PO BID 12/31/19 09/30/21 peg 400-propylene glycol 0.4 %-0.3 1 drp OPHTHALMIC (EYE) Q6 PRN 12/31/19 09/30/21 % eye drops (Systane (propylene glycol)) famotidine 20 mg tablet 20 mg PO BID 04/09/20 09/30/21 ferrous sulfate 325 mg (65 mg 325 mg PO DAILY 04/09/20 09/30/21 iron) tablet pantoprazole 40 mg tablet,delayed 40 mg PO DAILY 04/09/20 09/30/21 release (Protonix) multivitamin 1 tab PO DAILY 05/13/20 09/30/21 budesonide 180 mcg/actuation 1 inh INHALATION Q12H PRN 09/29/20 09/30/21 breath activated powder inhaler (Pulmicort Flexhaler) lasmiditan 100 mg tablet (Reyvow) 100 mg PO Q24H PRN 09/29/20 09/30/21 sucralfate 100 mg/mL oral 10 ml PO ACHS 09/29/20 09/30/21 suspension cyanocobalamin (vitamin B-12) 1,000 mcg PO DAILY cap 01/20/21 09/30/21 1,000 mcg capsule ondansetron HCl 4 mg tablet 4 mg PO Q8H PRN 01/20/21 09/30/21 buspirone 15 mg tablet 15 mg PO BID tab 04/21/21 09/30/21 ipratropium 0.5 mg-albuterol 3 mg 3 ml INHALATION Q4H PRN 04/21/21 09/30/21 (2.5 mg base)/3 mL nebulization soln amlodipine 2.5 mg tablet 2.5 mg PO DAILY 08/02/21 09/30/21 diphenhydramine HCl 12.5 mg/5 mL 50 mg PO TID 08/02/21 09/30/21 oral elixir levothyroxine 75 mcg tablet 75 mcg PO DAILY 08/02/21 09/30/21 lorazepam 0.5 mg tablet 0.5 mg PO BID 08/02/21 09/30/21 venlafaxine 75 mg tablet 75 mg PO BID 08/02/21 09/30/21 gabapentin 100 mg capsule 100 mg PO BID cap 08/23/21 09/30/21 Cepacol Lozenge 1 tab PO Q4H PRN 09/30/21 09/30/21 acetaminophen 500 mg tablet 1,000 mg PO DIRECTED PRN MDD 3 09/30/21 09/30/21 (Tylenol Extra Strength) GRAMS/24 HOURS aluminum-mag hydroxide-simethicone 30 ml PO Q8H PRN 09/30/21 09/30/21 225 mg-200 mg-25 mg/5 mL oral susp bismuth subsalicylate 262 mg/15 mL 524 mg PO Q6H PRN 09/30/21 09/30/21 oral suspension (Pepto-Bismol) docosanol 10 % topical cream 1 applic TOPICAL 5XD PRN 09/30/21 09/30/21 (Abreva) ondansetron HCl 4 mg tablet 4 mg PO DAILY 09/30/21 09/30/21 (Zofran) Previous Rx's Medication Instructions Recorded erenumab-aooe 140 mg/mL 140 mg SUBCUT MONTHLY #1 ea 04/21/21 subcutaneous auto-injector topiramate 25 mg tablet (Topamax) 25 mg PO BID 30 Days #60 tab 04/21/21 Results & Data (ED) Vital Signs Vital Signs - 24 hr 09/30/21 18:48 09/30/21 18:49 09/30/21 19:00 Temperature 37.8 C H Temperature Source Oral Pulse Rate 98 H 98 H 94 H Pulse Rate [Apical] 94 H Pulse Rate from SpO2 Sensor Pulse Rhythm Pulse Rhythm [Apical] Pulse Strength [Apical] Respiratory Rate 26 H 26 H 30 H Respiratory Effort / Characteristics Non-Labored Spontaneous Respiratory Depth Normal Respiratory Pattern Regular Blood Pressure 131/102 H 121/61 Blood Pressure [Right Arm] 131/102 H Blood Pressure Mean 111 81 Blood Pressure Mean [Right Arm] 111 Blood Pressure Position [Right Arm] Pulse Oximetry 86 L Oxygen Delivery Method Trach Collar Oxygen Flow Rate 10 Fraction of Inspired Oxygen SaO2/FiO2 Ratio Sepsis Recent Fever Within 48 Hours Yes Sepsis New/Unexplained Change in Mental Status No Sepsis Action Taken by Nursing No Action Required 09/30/21 19:05 09/30/21 19:15 09/30/21 19:20 Temperature Temperature Source Pulse Rate 94 H Pulse Rate [Apical] 98 H 100 H Pulse Rate from SpO2 Sensor 94 H Pulse Rhythm Regular Pulse Rhythm [Apical] Pulse Strength [Apical] Respiratory Rate 24 33 H 28 H Respiratory Effort / Characteristics Spontaneous Labored Respiratory Depth Respiratory Pattern Blood Pressure 119/67 Blood Pressure [Right Arm] 121/61 Blood Pressure Mean 84 Blood Pressure Mean [Right Arm] 81 Blood Pressure Position [Right Arm] Pulse Oximetry 97 100 98 Oxygen Delivery Method Trach Collar Trach Collar Trach Collar Oxygen Flow Rate 10 10 15 Fraction of Inspired Oxygen 100 SaO2/FiO2 Ratio Sepsis Recent Fever Within 48 Hours Sepsis New/Unexplained Change in Mental Status Sepsis Action Taken by Nursing 09/30/21 19:30 09/30/21 19:39 09/30/21 19:58 Temperature Temperature Source Pulse Rate 97 H Pulse Rate [Apical] 98 H Pulse Rate from SpO2 Sensor 97 H Pulse Rhythm Pulse Rhythm [Apical] Regular Pulse Strength [Apical] Normal Respiratory Rate 28 H 28 H 27 H Respiratory Effort / Characteristics Spontaneous Labored Non-Labored Respiratory Depth Normal Respiratory Pattern Tachypnea Blood Pressure 130/82 Blood Pressure [Right Arm] 109/76 Blood Pressure Mean 98 Blood Pressure Mean [Right Arm] 87 Blood Pressure Position [Right Arm] Pulse Oximetry 94 94 100 Oxygen Delivery Method Trach Collar Trach Collar Trach Collar Oxygen Flow Rate 10 10 6 Fraction of Inspired Oxygen SaO2/FiO2 Ratio Sepsis Recent Fever Within 48 Hours Sepsis New/Unexplained Change in Mental Status Sepsis Action Taken by Nursing 09/30/21 20:01 09/30/21 20:21 09/30/21 20:30 Temperature Temperature Source Pulse Rate Pulse Rate [Apical] 98 H Pulse Rate from SpO2 Sensor Pulse Rhythm Pulse Rhythm [Apical] Regular Pulse Strength [Apical] Normal Respiratory Rate 24 24 21 Respiratory Effort / Characteristics Non-Labored Non-Labored Non-Labored Respiratory Depth Normal Respiratory Pattern Blood Pressure Blood Pressure [Right Arm] 122/68 Blood Pressure Mean Blood Pressure Mean [Right Arm] 86 Blood Pressure Position [Right Arm] Pulse Oximetry 100 98 94 Oxygen Delivery Method Trach Collar Trach Collar Oxygen Flow Rate 4 Fraction of Inspired Oxygen 35 28 SaO2/FiO2 Ratio 280 Sepsis Recent Fever Within 48 Hours Sepsis New/Unexplained Change in Mental Status Sepsis Action Taken by Nursing 09/30/21 20:54 09/30/21 20:59 09/30/21 21:00 Temperature Temperature Source Pulse Rate Pulse Rate [Apical] 90 91 H Pulse Rate from SpO2 Sensor Pulse Rhythm Pulse Rhythm [Apical] Regular Regular Pulse Strength [Apical] Weak Weak Respiratory Rate 24 23 Respiratory Effort / Characteristics Non-Labored Non-Labored Respiratory Depth Normal Normal Respiratory Pattern Regular Regular Blood Pressure Blood Pressure [Right Arm] 122/67 121/63 Blood Pressure Mean Blood Pressure Mean [Right Arm] 85 82 Blood Pressure Position [Right Arm] Sitting Pulse Oximetry 92 87 L 98 Oxygen Delivery Method Trach Collar Trach Collar Trach Collar Oxygen Flow Rate Fraction of Inspired Oxygen 28 28 35 SaO2/FiO2 Ratio 328 310 280 Sepsis Recent Fever Within 48 Hours Sepsis New/Unexplained Change in Mental Status Sepsis Action Taken by Nursing 09/30/21 21:04 09/30/21 21:30 Temperature Temperature Source Pulse Rate Pulse Rate [Apical] Pulse Rate from SpO2 Sensor Pulse Rhythm Pulse Rhythm [Apical] Pulse Strength [Apical] Respiratory Rate 24 Respiratory Effort / Characteristics Non-Labored Respiratory Depth Respiratory Pattern Blood Pressure Blood Pressure [Right Arm] Blood Pressure Mean Blood Pressure Mean [Right Arm] Blood Pressure Position [Right Arm] Pulse Oximetry 94 99 Oxygen Delivery Method Trach Collar Trach Collar Oxygen Flow Rate Fraction of Inspired Oxygen 35 35 SaO2/FiO2 Ratio 268 Sepsis Recent Fever Within 48 Hours Sepsis New/Unexplained Change in Mental Status Sepsis Action Taken by Intermediate Medications Current Medication List: was personally reviewed by me Laboratory Data Attestation: I reviewed the patient's lab results. Result diagrams: 09/30/21 19:17 09/30/21 20:41 Lab Results 09/30/21 09/30/21 09/30/21 Range/Units 18:55 19:17 19:17 WBC 9.42 (4.8-10.8) K/uL RBC 4.84 (4.2-5.4) M/uL Hgb 14.1 (12.0-16.0) g/dL Hct 44.6 (37-47) % MCV 92.1 (80-100) fL MCH 29.1 (25-34) pg MCHC 31.6 L (32-36) g/dL RDW Std Deviation 51.4 H (36.4-46.3) fL RDW Coeff of Eleazar 15.2 H (11.5-14.5) % Plt Count 146 (130-400) K/uL MPV 10.6 H (7.4-10.4) fL Immature Gran % (Auto) 0.2 % Neut % (Auto) 81.4 % Lymph % (Auto) 13.8 % Marin % (Auto) 4.4 % Eos % (Auto) 0.1 % Baso % (Auto) 0.1 % Neut # (Auto) 7.67 H (1.4-6.5) K/uL Lymph # (Auto) 1.30 (1.2-3.4) K/uL Marin # (Auto) 0.41 (0.11-0.59) K/uL Eos # (Auto) 0.01 (0-0.5) K/uL Baso # (Auto) 0.01 (0-0.2) K/uL Immature Gran # (Auto) 0.02 (0.00-0.02) K/uL PT Cancelled INR Cancelled APTT Cancelled PTT Ratio Cancelled ABG pH (7.35-7.45) ABG pCO2 (35-46) mmHg ABG pO2 (80-95) mmHg ABG HCO3 (19-24) mmol/L ABG O2 Saturation (90-95) % ABG Base Excess (-9-1.8) mEq/L Tommie Test (Pos) VBG pH (7.36-7.41) VBG pCO2 (38-50) mmHg VBG pO2 mmHg VBG HCO3 mmol/L VBG O2 Saturation % VBG Base Excess mEq/L Barometric Pressure mm/Hg Oxygen Given Sodium (136-145) mmol/L Potassium (3.5-5.1) mmol/L Chloride (98-107) mmol/L Carbon Dioxide (21-32) mmol/L Anion Gap (3-11) BUN (7-18) mg/dl Creatinine (0.6-1.2) mg/dl Est Cr Clr Drug Dosing ml/min Est GFR ( Amer) ml/min Est GFR (Non-Af Amer) ml/min BUN/Creatinine Ratio (10-20) Glucose (70-99) mg/dl Lactate (0.4-2.0) mmol/L Calcium (8.5-10.1) mg/dl Magnesium (1.8-2.4) mg/dl Total Bilirubin (0.2-1) mg/dl AST (15-37) U/L ALT (12-78) U/L Alkaline Phosphatase (45-117) U/L Troponin I (0-0.045) ng/ml Total Protein (6.4-8.2) gm/dl Albumin (3.4-5.0) gm/dl Globulin (2.5-4.0) gm/dl Albumin/Globulin Ratio (0.9-2) Procalcitonin Specimen Hemolysis Urine Color Yellow Urine Appearance Cloudy A (Clear) Urine pH 8.5 H (4.5-7.5) Ur Specific [place] 1.020 (1.000-1.030) Urine Protein Trace H (Negative) Urine Glucose (UA) Negative (Negative) Urine Ketones Negative (Negative) Urine Blood Negative (Negative) Urine Nitrite Negative (Negative) Urine Bilirubin Negative (Negative) Urine Urobilinogen Negative (Negative) Ur Leukocyte Esterase Negative (Negative) Urine WBC (Auto) 1-5 (0-5) /hpf Urine RBC (Auto) 5-10 H (0-4) /hpf U Hyaline Cast (Auto) 1-5 (0-5) /lpf U Epithel Cells (Auto) >30 H (0-5) /lpf Urine Bacteria (Auto) 1+ H (Negative) Amorphous Sediment Present A (None Prsent) Granular Casts 1-5 H (0) /lpf Urine Yeast Not Reportable 09/30/21 09/30/21 09/30/21 Range/Units 19:17 19:17 19:17 WBC (4.8-10.8) K/uL RBC (4.2-5.4) M/uL Hgb (12.0-16.0) g/dL Hct (37-47) % MCV (80-100) fL MCH (25-34) pg MCHC (32-36) g/dL RDW Std Deviation (36.4-46.3) fL RDW Coeff of Eleazar (11.5-14.5) % Plt Count (130-400) K/uL MPV (7.4-10.4) fL Immature Gran % (Auto) % Neut % (Auto) % Lymph % (Auto) % [place] % (Auto) % Eos % (Auto) % Baso % (Auto) % Neut # (Auto) (1.4-6.5) K/uL Lymph # (Auto) (1.2-3.4) K/uL Marin # (Auto) (0.11-0.59) K/uL Eos # (Auto) (0-0.5) K/uL Baso # (Auto) (0-0.2) K/uL Immature Gran # (Auto) (0.00-0.02) K/uL PT INR APTT PTT Ratio ABG pH (7.35-7.45) ABG pCO2 (35-46) mmHg ABG pO2 (80-95) mmHg ABG HCO3 (19-24) mmol/L ABG O2 Saturation (90-95) % ABG Base Excess (-9-1.8) mEq/L Tommie Test (Pos) VBG pH (7.36-7.41) VBG pCO2 (38-50) mmHg VBG pO2 mmHg VBG HCO3 mmol/L VBG O2 Saturation % VBG Base Excess mEq/L Barometric Pressure mm/Hg Oxygen Given Sodium 139 (136-145) mmol/L Potassium (3.5-5.1) mmol/L Chloride 109 H (98-107) mmol/L Carbon Dioxide 22 (21-32) mmol/L Anion Gap 8.0 (3-11) BUN 17 (7-18) mg/dl Creatinine 1.33 H (0.6-1.2) mg/dl Est Cr Clr Drug Dosing 25.5 ml/min Est GFR ( Amer) 46.8 ml/min Est GFR (Non-Af Amer) 40.4 ml/min BUN/Creatinine Ratio 12.6 (10-20) Glucose 164 H (70-99) mg/dl Lactate 3.9 H* (0.4-2.0) mmol/L Calcium 8.8 (8.5-10.1) mg/dl Magnesium (1.8-2.4) mg/dl Total Bilirubin 0.5 (0.2-1) mg/dl AST (15-37) U/L ALT 26 (12-78) U/L Alkaline Phosphatase 98 (45-117) U/L Troponin I < 0.015 (0-0.045) ng/ml Total Protein 7.7 (6.4-8.2) gm/dl Albumin 3.3 L (3.4-5.0) gm/dl Globulin 4.4 H (2.5-4.0) gm/dl Albumin/Globulin Ratio 0.7 L (0.9-2) Procalcitonin Cancelled Specimen Hemolysis Urine Color Urine Appearance (Clear) Urine pH (4.5-7.5) Ur Specific [place] (1.000-1.030) Urine Protein (Negative) Urine Glucose (UA) (Negative) Urine Ketones (Negative) Urine Blood (Negative) Urine Nitrite (Negative) Urine Bilirubin (Negative) Urine Urobilinogen (Negative) Ur Leukocyte Esterase (Negative) Urine WBC (Auto) (0-5) /hpf Urine RBC (Auto) (0-4) /hpf U Hyaline Cast (Auto) (0-5) /lpf U Epithel Cells (Auto) (0-5) /lpf Urine Bacteria (Auto) (Negative) Amorphous Sediment (None Prsent) Granular Casts (0) /lpf Urine Yeast 09/30/21 09/30/21 09/30/21 Range/Units 19:17 19:50 19:50 WBC (4.8-10.8) K/uL RBC (4.2-5.4) M/uL Hgb (12.0-16.0) g/dL Hct (37-47) % MCV (80-100) fL MCH (25-34) pg MCHC (32-36) g/dL RDW Std Deviation (36.4-46.3) fL RDW Coeff of Eleazar (11.5-14.5) % Plt Count (130-400) K/uL MPV (7.4-10.4) fL Immature Gran % (Auto) % Neut % (Auto) % Lymph % (Auto) % [place] % (Auto) % Eos % (Auto) % Baso % (Auto) % Neut # (Auto) (1.4-6.5) K/uL Lymph # (Auto) (1.2-3.4) K/uL Marin # (Auto) (0.11-0.59) K/uL Eos # (Auto) (0-0.5) K/uL Baso # (Auto) (0-0.2) K/uL Immature Gran # (Auto) (0.00-0.02) K/uL PT 11.6 INR 1.2 H APTT 32.6 H PTT Ratio 1.2 ABG pH (7.35-7.45) ABG pCO2 (35-46) mmHg ABG pO2 (80-95) mmHg ABG HCO3 (19-24) mmol/L ABG O2 Saturation (90-95) % ABG Base Excess (-9-1.8) mEq/L Tommie Test (Pos) VBG pH 7.25 L (7.36-7.41) VBG pCO2 59 H (38-50) mmHg VBG pO2 29 mmHg VBG HCO3 26 mmol/L VBG O2 Saturation < 60.0 % VBG Base Excess -2.6 mEq/L Barometric Pressure 743.5 mm/Hg Oxygen Given Sodium (136-145) mmol/L Potassium (3.5-5.1) mmol/L Chloride (98-107) mmol/L Carbon Dioxide (21-32) mmol/L Anion Gap (3-11) BUN (7-18) mg/dl Creatinine (0.6-1.2) mg/dl Est Cr Clr Drug Dosing ml/min Est GFR ( Amer) ml/min Est GFR (Non-Af Amer) ml/min BUN/Creatinine Ratio (10-20) Glucose (70-99) mg/dl Lactate (0.4-2.0) mmol/L Calcium (8.5-10.1) mg/dl Magnesium (1.8-2.4) mg/dl Total Bilirubin (0.2-1) mg/dl AST (15-37) U/L ALT (12-78) U/L Alkaline Phosphatase (45-117) U/L Troponin I (0-0.045) ng/ml Total Protein (6.4-8.2) gm/dl Albumin (3.4-5.0) gm/dl Globulin (2.5-4.0) gm/dl Albumin/Globulin Ratio (0.9-2) Procalcitonin 0.18 Specimen Hemolysis Urine Color Urine Appearance (Clear) Urine pH (4.5-7.5) Ur Specific [place] (1.000-1.030) Urine Protein (Negative) Urine Glucose (UA) (Negative) Urine Ketones (Negative) Urine Blood (Negative) Urine Nitrite (Negative) Urine Bilirubin (Negative) Urine Urobilinogen (Negative) Ur Leukocyte Esterase (Negative) Urine WBC (Auto) (0-5) /hpf Urine RBC (Auto) (0-4) /hpf U Hyaline Cast (Auto) (0-5) /lpf U Epithel Cells (Auto) (0-5) /lpf Urine Bacteria (Auto) (Negative) Amorphous Sediment (None Prsent) Granular Casts (0) /lpf Urine Yeast 09/30/21 09/30/21 Range/Units 20:41 20:41 WBC (4.8-10.8) K/uL RBC (4.2-5.4) M/uL Hgb (12.0-16.0) g/dL Hct (37-47) % MCV (80-100) fL MCH (25-34) pg MCHC (32-36) g/dL RDW Std Deviation (36.4-46.3) fL RDW Coeff of Eleazar (11.5-14.5) % Plt Count (130-400) K/uL MPV (7.4-10.4) fL Immature Gran % (Auto) % Neut % (Auto) % Lymph % (Auto) % [place] % (Auto) % Eos % (Auto) % Baso % (Auto) % Neut # (Auto) (1.4-6.5) K/uL Lymph # (Auto) (1.2-3.4) K/uL [place] # (Auto) (0.11-0.59) K/uL Eos # (Auto) (0-0.5) K/uL Baso # (Auto) (0-0.2) K/uL Immature Gran # (Auto) (0.00-0.02) K/uL PT INR APTT PTT Ratio ABG pH 7.41 (7.35-7.45) ABG pCO2 34 L (35-46) mmHg ABG pO2 60 L (80-95) mmHg ABG HCO3 21 (19-24) mmol/L ABG O2 Saturation 91.4 (90-95) % ABG Base Excess -2.9 (-9-1.8) mEq/L Tommie Test Pos (Pos) VBG pH (7.36-7.41) VBG pCO2 (38-50) mmHg VBG pO2 mmHg VBG HCO3 mmol/L VBG O2 Saturation % VBG Base Excess mEq/L Barometric Pressure 743.7 mm/Hg Oxygen Given 35% Sodium (136-145) mmol/L Potassium 3.7 (3.5-5.1) mmol/L Chloride (98-107) mmol/L Carbon Dioxide (21-32) mmol/L Anion Gap (3-11) BUN (7-18) mg/dl Creatinine (0.6-1.2) mg/dl Est Cr Clr Drug Dosing ml/min Est GFR ( Amer) ml/min Est GFR (Non-Af Amer) ml/min BUN/Creatinine Ratio (10-20) Glucose (70-99) mg/dl Lactate (0.4-2.0) mmol/L Calcium (8.5-10.1) mg/dl Magnesium 2.1 (1.8-2.4) mg/dl Total Bilirubin (0.2-1) mg/dl AST 19 (15-37) U/L ALT (12-78) U/L Alkaline Phosphatase (45-117) U/L Troponin I (0-0.045) ng/ml Total Protein (6.4-8.2) gm/dl Albumin (3.4-5.0) gm/dl Globulin (2.5-4.0) gm/dl Albumin/Globulin Ratio (0.9-2) Procalcitonin Specimen Hemolysis Urine Color Urine Appearance (Clear) Urine pH (4.5-7.5) Ur Specific [place] (1.000-1.030) Urine Protein (Negative) Urine Glucose (UA) (Negative) Urine Ketones (Negative) Urine Blood (Negative) Urine Nitrite (Negative) Urine Bilirubin (Negative) Urine Urobilinogen (Negative) Ur Leukocyte Esterase (Negative) Urine WBC (Auto) (0-5) /hpf Urine RBC (Auto) (0-4) /hpf U Hyaline Cast (Auto) (0-5) /lpf U Epithel Cells (Auto) (0-5) /lpf Urine Bacteria (Auto) (Negative) Amorphous Sediment (None Prsent) Granular Casts (0) /lpf Urine Yeast Administered Medications Discontinued Medications Albuterol (Albut/Ipratrop 3mg/0.5mg Neb 3 Ml Vial) 6 ml NEB NOW STA Stop: 09/30/21 18:47 Last Admin: 09/30/21 19:20 Dose: 6 ml Documented by: [id number] Sodium Chloride (Nss 1000ml) 1,000 mls @ 999 mls/hr IV .Q1H1M [id number] Stop: 09/30/21 19:46 Last Infusion: 09/30/21 20:56 Dose: 0 mls/hr Documented by: [id number] Admin: 09/30/21 19:25 Dose: 999 mls/hr Documented by: [id number] Cefepime HCl (Maxipime) 2,000 mg in 20 mls @ 5 mls/min IV NOW STA; Protocol Stop: 09/30/21 18:51 Last Admin: 09/30/21 19:24 Dose: 5 mls/min Documented by: [id number] Acetaminophen (Ofirmev) 1,000 mg in 100 mls @ 400 mls/hr IV NOW STA Stop: 09/30/21 19:09 Last Infusion: 09/30/21 19:49 Dose: 0 mls/hr Documented by: [id number] Admin: 09/30/21 19:24 Dose: 400 mls/hr Documented by: [id number] Sodium Chloride (Nss 1000ml) 500 mls @ 999 mls/hr IV .Q31M ONE Stop: 09/30/21 20:23 Last Infusion: 09/30/21 22:20 Dose: 0 mls/hr Documented by: [id number] Admin: 09/30/21 20:56 Dose: 999 mls/hr Documented by: [id number] Methylprednisolone (Methylprednisolone 40 Mg/Ml Vial) 40 mg IV NOW STA Stop: 09/30/21 18:49 Last Admin: 09/30/21 19:24 Dose: 40 mg Documented by: [id number] Imaging Data Radiologist's Impression: Chest X-Ray 09/30/21 18:46 XR chest 1V portable HISTORY: 71 years-old Female SEPSIS acute sepsis COMPARISON: Chest CT 10/18/2020, chest radiograph 10/15/2020 TECHNIQUE: Portable AP view of the chest FINDINGS: Patient is rotated. Tracheostomy cannula overlies the midline. Surgical clips of the neck. Cardiomediastinal and hilar silhouettes are within normal limits. Sev ere emphysema with chronic interstitial coarsening. Mild consolidative opacities of the right lung base. No pneumothorax, large pleural effusion or overt pulmonary edema. No acute fracture. IMPRESSION: 1. Airspace opacities of the right lung base suggest pneumonia versus aspiration pneumonitis. 2. Emphysema with chronic interstitial coarsening. ACT 112: Negative or not required by law. The above report was generated using voice recognition software. It may contain grammatical, syntax or spelling errors. Electronically signed by: Lucian Limon M.D. 09/30/2021 7:46 PM Discharge Plan Visit Data Chief Complaint: Respiratory Distress ED Provider: Tulio Collado Discharge Problem: Acute hypoxemic respiratory failure, Pneumonia, Elevated lactic acid level, Sepsis Patient Disposition: Admitted As Inpatient Discharge Instructions Interventions: ED Discharge Assessment Last Done: 09/30/21 22:14
[2021-09-30] MEDS ORDERED: CEFEPIME 2,000 MG/20 ML VIAL IV STA (18:48)
[2021-09-30] MEDS ORDERED: ACETAMINOPHEN 1,000 MG/100 ML VIAL IV STA (18:55)
[2021-09-30] MEDS ORDERED: SODIUM CHLORIDE 0.9% 1000ML 1,000 ML IV SCH (19:00)
[2021-09-30 19:31] LABS: Basophils # (auto) 0.01 K/uL (0-0.2); Basophils % (auto) 0.1 %; Eosinophils # (auto) 0.01 K/uL (0-0.5); Eosinophils % (auto) 0.1 %; Hematocrit (blood only) 44.6 % (37-47); Hemoglobin 14.1 g/dL (12.0-16.0); Immature Granulocytes # (auto) 0.02 K/uL (0.00-0.02); Immature Granulocytes % (auto) 0.2 %; Lymphocytes % (auto) 13.8 %; Mean Corpuscular Hemoglobin 29.1 pg (25-34); Mean Corpuscular Hgb Conc 31.6 g/dL (32-36); Mean Corpuscular Volume 92.1 fL (80-100); Mean Platelet Volume 10.6 fL (7.4-10.4); Monocytes # (auto) 0.41 K/uL (0.11-0.59); Monocytes % (auto) 4.4 %; Neutrophils # (auto) 7.67 K/uL (1.4-6.5); Neutrophils % (auto) 81.4 %; Platelet Count 146 K/uL (130-400); RDW Coefficient of Variation 15.2 % (11.5-14.5); RDW Standard Deviation 51.4 fL (36.4-46.3); Red Blood Count 4.84 M/uL (4.2-5.4); White Blood Count 9.42 K/uL (4.8-10.8)
[2021-09-30 19:34] LABS: Base Excess VBG -2.6 mEq/L; HCO3 VBG 26 mmol/L; PCO2 VBG 59 mmHg (38-50); PO2 VBG 29 mmHg; pH VBG 7.25 (7.36-7.41)
[2021-09-30 19:35] LABS: Oxygen Saturation VBG < 60.0 %
--- NOTE | 2021-09-30 19:47 | XRay Report ---
XR chest 1V portable HISTORY: 71 years-old Female SEPSIS acute sepsis COMPARISON: Chest CT 10/18/2020, chest radiograph 10/15/2020 TECHNIQUE: Portable AP view of the chest FINDINGS: Patient is rotated. Tracheostomy cannula overlies the midline. Surgical clips of the neck. Cardiomedi astinal and hilar silhouettes are within normal limits. Severe emphysema with chronic interstitial co arsening. Mild consolidative opacities of the right lung base. No pneumothorax, large pleural effusio n or overt pulmonary edema. No acute fracture. IMPRESSION: 1. Airspace opacities of the right lung base suggest pneumonia versus aspiration pneumonitis. 2. Emphysema with chronic interstitial coarsening. ACT 112: Negative or not required by law. The above report was generated using voice recognition software. It may contain grammatical, syntax o r spelling errors. Electronically signed by: Lucian Limon M.D. 09/30/2021 7:46 PM
[2021-09-30] MEDS ORDERED: SODIUM CHLORIDE 0.9% 1000ML 500 ML IV ONE (19:53)
[2021-09-30 20:03] LABS: Alanine Aminotransferase 26 U/L (12-78); Albumin Globulin Ratio 0.7 (0.9-2); Albumin Level 3.3 gm/dl (3.4-5.0); Alkaline Phosphatase 98 U/L (45-117); BUN Creatinine Ratio 12.6 (10-20); Bilirubin,Total 0.5 mg/dl (0.2-1); Blood Urea Nitrogen 17 mg/dl (7-18); Calcium 8.8 mg/dl (8.5-10.1); Carbon Dioxide 22 mmol/L (21-32); Chloride 109 mmol/L (98-107); Creatinine Clr Calc Pharmacy 25.5 ml/min; Est GFR (African American) 46.8 ml/min; Est GFR (Non-African American) 40.4 ml/min; Globulin 4.4 gm/dl (2.5-4.0); Glucose 164 mg/dl (70-99); Sodium 139 mmol/L (136-145); Total Protein 7.7 gm/dl (6.4-8.2); Troponin I < 0.015 ng/ml (0-0.045)
[2021-09-30 20:35] LABS: Appearance Urine Cloudy (Clear); Bacteria Urine Automated 1+ (Negative); Bilirubin Urine Negative (Negative); Blood Urine Negative (Negative); Color Urine Yellow; Epithelial Cell Urine Auto >30 /lpf (0-5); Glucose Urine UA Negative (Negative); Ketones Urine Negative (Negative); Leukocyte Esterase Urine Negative (Negative); Nitrite Urine Negative (Negative); Urobilinogen Urine Negative (Negative); pH Urine 8.5 (4.5-7.5)
[2021-09-30 20:42] LABS: INR 1.2 (0.9-1.1); Partial Thromboplastin Ratio 1.2; Partial Thromboplastin Time 32.6 Seconds (21.0-31.0); Prothrombin Time 11.6 Seconds (9.0-12.0)
[2021-09-30 20:51] LABS: Base Excess ABG -2.9 mEq/L (-9-1.8); HCO3 ABG 21 mmol/L (19-24); Oxygen Saturation ABG 91.4 % (90-95); PCO2 ABG 34 mmHg (35-46); PO2 ABG 60 mmHg (80-95); pH ABG 7.41 (7.35-7.45)
[2021-09-30 20:52] LABS: Protein Urine Trace (Negative)
[2021-09-30 20:55] LABS: Allen Test Pos (Pos)
[2021-09-30 21:04] LABS: Potassium 3.7 mmol/L (3.5-5.1)
[2021-09-30 21:12] LABS: Adenovirus PCR Not Detected (NotDetected); Bordetella parapertussis PCR Not Detected (NotDetected); Bordetella pertussis PCR Not Detected (NotDetected); Chlamydia pneumoniae PCR Not Detected (NotDetected); Coronavirus 229E PCR Not Detected (NotDetected); Coronavirus CoV-2 (COVID19)PCR Not Detected (NotDetected); Coronavirus HKU1 PCR Not Detected (NotDetected); Coronavirus NL63 PCR Not Detected (NotDetected); Coronavirus OC43PCR Not Detected (NotDetected); Human Metapneumovirus PCR Not Detected (NotDetected); Influenza A PCR Not Detected (NotDetected); Influenza B PCR Not Detected (NotDetected); Mycoplasma pneumoniae PCR Not Detected (NotDetected); Parainfluenza Virus 1 PCR Not Detected (NotDetected); Parainfluenza Virus 2 PCR Not Detected (NotDetected); Parainfluenza Virus 3 PCR Not Detected (NotDetected); Parainfluenza Virus 4 PCR Not Detected (NotDetected); Respiratory Syncytial VirusPCR Not Detected (NotDetected); Rhinovirus/Enterovirus PCR Not Detected (NotDetected)
[2021-09-30 21:18] LABS: Amorphous Sediment Urine Present (None Prsent)
[2021-09-30 21:19] LABS: Magnesium 2.1 mg/dl (1.8-2.4)
--- NOTE | 2021-09-30 21:58 | History & Physical Report ---
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 Acute Hypoxic Respiratory Failure: -Oxygen desaturations to 70% prior to presentation to ED with increased work of breathing -ABG demonstrating -Improved on trach collar with FiO2 of 28% -Continue to monitor and wean supplemental oxygen as tolerated Sepsis: -Upon presentation to ED with tachypnea and tachycardia -Elevated lactic acid to 3.9 on track -Repeat lactic acid 5.0 following 1500 cc bolus of NSS -Blood cultures obtained -Continue on cefepime 2 g every 8h Pneumonia: -Concern for aspiration pneumonia given patient's history and presentation at [facility] -CXR demonstrating airspace opacities within the right lung base -Pro-Jani initially negative -Negative WBC -Continue cefepime for aspiration concerns -Previous speech therapy evaluations in 2019 did not demonstrate signs of aspiration -Given the worsening and potential concerns will have speech evaluation this admission COPD: -Continue home inhaler regimen with transition to hospital formulary Hypertension: -Continue home hypertensive regimen including amlodipine 2.5 mg daily, Lasix 20 mg daily and metoprolol tartrate 50 mg twice daily Hypothyroidism: -Continue Synthroid 75 mcg daily Diet: Regular; IVF NSS@125 mL/hour DVT PPx: Lovenox CODE STATUS: FULL CODE (2) Sepsis: (3) Pneumonia: (4) Tracheostomy present: (5) Hypertension: (6) Hypothyroidism: (7) COPD (chronic obstructive pulmonary disease): History of Present Illness Primary Care Provider: [facility] Yane Maria is a 71y/o F w/ PMH significant for hyperlipidemia, hypertension, hypothyroidism, 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 Patient does reside at [facility], and per the report she was found with vomitus/sputum around her stoma site and oxygen saturations in the 70s on room air, subsequently put on trach collar with oxygen and had no improvement before being brought to the ER. Reportedly has not been eating much over the last several days with some nausea and vomiting as well as fever prior to presentation. In the ED was found to be 87% on 2 L trach collar with subsequent titration up to 10 L trach collar with improvement of oxygenation. Had a positive lactic acid at 3.9. Trach collar was secured by respiratory therapy as well as balloon inflated. Patient improved following that time. Has a previous history of multiple aspiration pneumonia events. Currently endorses some generalized lower abdominal pressure/pain. No longer nauseous or with any continued vomiting. Continuing to have intermittent increased oral secretions. Is interested in eating and drinking and feeling better at this point time. Allergies Allergy/AdvReac Type Severity Reaction Status Date / Time alendronate sodium Allergy Unknown ON CENTRE Verified 09/30/21 19:29 CREST MED LIST penicillin V Allergy Unknown ON CENTRE Verified 09/30/21 19:29 CREST MED LIST sulfadiazine Allergy Unknown ON CENTRE Verified 09/30/21 19:29 CREST MED LIST Home Medications Medication Instructions Recorded Confirmed Type aspirin 81 mg chewable tablet 81 mg PO DAILY 07/29/19 09/30/21 History simethicone 80 mg chewable tablet 80 mg PO QID 07/30/19 09/30/21 History (Gas Relief 80 (simethicone)) potassium chloride 10 mEq 10 meq PO DAILY 09/19/19 09/30/21 History tablet,extended release(part/cryst) (Klor-Con M) furosemide 20 mg tablet 20 mg PO QAM 12/31/19 09/30/21 History metoprolol tartrate 50 mg tablet 50 mg PO BID 12/31/19 09/30/21 History peg 400-propylene glycol 0.4 %-0.3 1 drp OPHTHALMIC (EYE) Q6 PRN 12/31/19 09/30/21 History % eye drops (Systane (propylene glycol)) famotidine 20 mg tablet 20 mg PO BID 04/09/20 09/30/21 History ferrous sulfate 325 mg (65 mg 325 mg PO DAILY 04/09/20 09/30/21 History iron) tablet pantoprazole 40 mg tablet,delayed 40 mg PO DAILY 04/09/20 09/30/21 History release (Protonix) multivitamin 1 tab PO DAILY 05/13/20 09/30/21 History budesonide 180 mcg/actuation 1 inh INHALATION Q12H PRN 09/29/20 09/30/21 History breath activated powder inhaler (Pulmicort Flexhaler) lasmiditan 100 mg tablet (Reyvow) 100 mg PO Q24H PRN 09/29/20 09/30/21 History sucralfate 100 mg/mL oral 10 ml PO ACHS 09/29/20 09/30/21 History suspension cyanocobalamin (vitamin B-12) 1,000 mcg PO DAILY cap 01/20/21 09/30/21 History 1,000 mcg capsule ondansetron HCl 4 mg tablet 4 mg PO Q8H PRN 01/20/21 09/30/21 History buspirone 15 mg tablet 15 mg PO BID tab 04/21/21 09/30/21 History erenumab-aooe 140 mg/mL 140 mg SUBCUT MONTHLY #1 ea 04/21/21 09/30/21 Rx subcutaneous auto-injector ipratropium 0.5 mg-albuterol 3 mg 3 ml INHALATION Q4H PRN 04/21/21 09/30/21 History (2.5 mg base)/3 mL nebulization soln topiramate 25 mg tablet (Topamax) 25 mg PO BID 30 Days #60 tab 04/21/21 09/30/21 Rx amlodipine 2.5 mg tablet 2.5 mg PO DAILY 08/02/21 09/30/21 History diphenhydramine HCl 12.5 mg/5 mL 50 mg PO TID 08/02/21 09/30/21 History oral elixir levothyroxine 75 mcg tablet 75 mcg PO DAILY 08/02/21 09/30/21 History lorazepam 0.5 mg tablet 0.5 mg PO BID 08/02/21 09/30/21 History venlafaxine 75 mg tablet 75 mg PO BID 08/02/21 09/30/21 History gabapentin 100 mg capsule 100 mg PO BID cap 08/23/21 09/30/21 History Cepacol Lozenge 1 tab PO Q4H PRN 09/30/21 09/30/21 History acetaminophen 500 mg tablet 1,000 mg PO DIRECTED PRN MDD 3 09/30/21 09/30/21 History (Tylenol Extra Strength) GRAMS/24 HOURS aluminum-mag hydroxide-simethicone 30 ml PO Q8H PRN 09/30/21 09/30/21 History 225 mg-200 mg-25 mg/5 mL oral susp bismuth subsalicylate 262 mg/15 mL 524 mg PO Q6H PRN 09/30/21 09/30/21 History oral suspension (Pepto-Bismol) docosanol 10 % topical cream 1 applic TOPICAL 5XD PRN 09/30/21 09/30/21 History (Abreva) ondansetron HCl 4 mg tablet 4 mg PO DAILY 09/30/21 09/30/21 History (Zofran) Past Med/Surg History Medical History Anemia Cancer Hx breast, lung and laryngeal cancer (larynx radiation, laryngectomy 2008) Chronic pain syndrome Chronic respiratory failure Constipation COPD (chronic obstructive pulmonary disease) Depression with anxiety Dysphagia Elevated hemidiaphragm GERD (gastroesophageal reflux disease) Hyperlipemia Hypertension Hypothyroidism Insomnia Muscle weakness Generalized On home oxygen therapy 2L via trach mask Osteoarthritis Tracheostomy in place Surgical History History of bronchoscopy History of section 1978 x 1 History of cholecystectomy History of colonoscopy History of esophagogastroduodenoscopy (EGD) 2019 History of esophagogastroduodenoscopy (EGD) with steroid injection, esophageal stricture dilation History of laryngectomy 2009 History of radical neck dissection 2009 History of ventral hernia repair 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 Family/Other Prostate cancer Sister , Passed age 64 of [place] No problems noted. Sister No problems noted. Sister No problems noted. Sister No problems noted. Brother No problems noted. Son , Passed as child in MVA No problems noted. Son , Passed as child in MVA No problems noted. Son No problems noted. Son No problems noted. Daughter No problems noted. 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: No Beliefs That Will Affect Care: None marital status: Single Current Living Situation: Family Current Living Situation Comment: resides at [facility] current occupational status: retired current occupation: Retired Other Information That Helps Us Care for You: No Feels Safe at Home: Yes caffeine: Yes (0-1 cup / day ) during the past year weight has: remained stable Assistive Devices: Oxygen - Continuous and Wheelchair Review of Systems Review of Systems: All systems reviewed & are unremarkable except as noted in HPI & below Physical Exam Constitutional: WD/WN, vitals as above Eyes: PERRL, conjunctivae normal, anicteric sclerae Respiratory: Auscultation: + rhonchi (L>R); breath sounds present, no crackles, no rales and no wheezes Cardiovascular: Rate/Rhythm: regular rate and regular rhythm Heart Sounds: no gallop, no murmur and no cardiac rub Vessels: normal peripheral pulses; no JVD Extremities: no edema Gastrointestinal (Abdomen): Inspection/Auscultation: normal bowel sounds; abdomen not distended Percussion/Palpation: + abdomen tender (right lower quadrant) and abdomen soft; no guarding Skin: no rashes, warm and dry Neurologic: PERRL, EOMI, accommodation nl, no face palsy, no dysarthria CN's II-XI intact bilaterally and moves all extremities Psychiatric: Orientation: alert and oriented x 3 Results & Data Results & Data ([facility]) Vital Signs (Past 12 Hours) Vital Signs Temp Pulse Pulse Resp BP BP Pulse Ox 09/30/21 21:04 94 09/30/21 21:00 91 H 23 121/63 98 09/30/21 20:59 87 L 09/30/21 20:54 90 24 122/67 92 09/30/21 20:30 21 94 09/30/21 20:21 98 H 24 122/68 98 09/30/21 20:01 24 100 09/30/21 19:58 98 H 27 H 109/76 100 09/30/21 19:39 28 H 94 09/30/21 19:30 97 H 28 H 130/82 94 09/30/21 19:20 100 H 28 H 98 09/30/21 19:15 94 H 33 H 119/67 100 09/30/21 19:05 98 H 24 121/61 97 09/30/21 19:00 94 H 30 H 121/61 09/30/21 18:49 37.8 C H 98 H 94 H 26 H 131/102 H 131/102 H 86 L 09/30/21 18:48 98 H 26 H Laboratory Results 09/30/21 09/30/21 09/30/21 Range/Units Unknown 20:41 20:41 WBC (4.8-10.8) K/uL RBC (4.2-5.4) M/uL Hgb (12.0-16.0) g/dL Hct (37-47) % MCV (80-100) fL MCH (25-34) pg MCHC (32-36) g/dL RDW Std Deviation (36.4-46.3) fL RDW Coeff of Eleazar (11.5-14.5) % Plt Count (130-400) K/uL MPV (7.4-10.4) fL Immature Gran % (Auto) % Neut % (Auto) % Lymph % (Auto) % Harvey % (Auto) % Eos % (Auto) % Baso % (Auto) % Neut # (Auto) (1.4-6.5) K/uL Lymph # (Auto) (1.2-3.4) K/uL Harvey # (Auto) (0.11-0.59) K/uL Eos # (Auto) (0-0.5) K/uL Baso # (Auto) (0-0.2) K/uL Immature Gran # (Auto) (0.00-0.02) K/uL PT INR APTT PTT Ratio ABG pH 7.41 (7.35-7.45) ABG pCO2 34 L (35-46) mmHg ABG pO2 60 L (80-95) mmHg ABG HCO3 21 (19-24) mmol/L ABG O2 Saturation 91.4 (90-95) % ABG Base Excess -2.9 (-9-1.8) mEq/L Otmmie Test Pos (Pos) VBG pH (7.36-7.41) VBG pCO2 (38-50) mmHg VBG pO2 mmHg VBG HCO3 mmol/L VBG O2 Saturation % VBG Base Excess mEq/L Barometric Pressure 743.7 mm/Hg Oxygen Given 35% Sodium (136-145) mmol/L Potassium 3.7 (3.5-5.1) mmol/L Chloride (98-107) mmol/L Carbon Dioxide (21-32) mmol/L Anion Gap (3-11) BUN (7-18) mg/dl Creatinine (0.6-1.2) mg/dl Est Cr Clr Drug Dosing ml/min Est GFR ( Amer) ml/min Est GFR (Non-Af Amer) ml/min BUN/Creatinine Ratio (10-20) Glucose (70-99) mg/dl Lactate (0.4-2.0) mmol/L Calcium (8.5-10.1) mg/dl Magnesium 2.1 (1.8-2.4) mg/dl Total Bilirubin (0.2-1) mg/dl AST 19 (15-37) U/L ALT (12-78) U/L Alkaline Phosphatase (45-117) U/L Troponin I (0-0.045) ng/ml Total Protein (6.4-8.2) gm/dl Albumin (3.4-5.0) gm/dl Globulin (2.5-4.0) gm/dl Albumin/Globulin Ratio (0.9-2) Procalcitonin Specimen Hemolysis Urine Color Urine Appearance (Clear) Urine pH (4.5-7.5) Ur Specific [place] (1.000-1.030) Urine Protein (Negative) Urine Glucose (UA) (Negative) Urine Ketones (Negative) Urine Blood (Negative) Urine Nitrite (Negative) Urine Bilirubin (Negative) Urine Urobilinogen (Negative) Ur Leukocyte Esterase (Negative) Urine WBC (Auto) (0-5) /hpf Urine RBC (Auto) (0-4) /hpf U Hyaline Cast (Auto) (0-5) /lpf U Epithel Cells (Auto) (0-5) /lpf Urine Bacteria (Auto) (Negative) Amorphous Sediment (None Prsent) Granular Casts (0) /lpf Urine Yeast Adenovirus (PCR) Not Detected (NotDetected) B. pertussis DNA (PCR) Not Detected (NotDetected) B.parapertussis DNA PCR Not Detected (NotDetected) C. pneumoniae DNA (PCR) Not Detected (NotDetected) Coronavirus OC43 (PCR) Not Detected (NotDetected) Coronavirus HKU1 (PCR) Not Detected (NotDetected) Coronavirus 229E (PCR) Not Detected (NotDetected) SARS-CoV-2 (PCR) Not Detected (NotDetected) Coronavirus NL63 (PCR) Not Detected (NotDetected) Human Metapneumovir PCR Not Detected (NotDetected) Influenza Type A (PCR) Not Detected (NotDetected) Influenza Type B (PCR) Not Detected (NotDetected) M. pneumoniae (PCR) Not Detected (NotDetected) Parainfluenza 1 (PCR) Not Detected (NotDetected) Parainfluenza 2 (PCR) Not Detected (NotDetected) Parainfluenza 3 (PCR) Not Detected (NotDetected) Parainfluenza 4 (PCR) Not Detected (NotDetected) RSV (PCR) Not Detected (NotDetected) Entero/Rhino (PCR) Not Detected (NotDetected) 09/30/21 09/30/21 09/30/21 Range/Units 19:50 19:50 19:17 WBC (4.8-10.8) K/uL RBC (4.2-5.4) M/uL Hgb (12.0-16.0) g/dL Hct (37-47) % MCV (80-100) fL MCH (25-34) pg MCHC (32-36) g/dL RDW Std Deviation (36.4-46.3) fL RDW Coeff of Eleazar (11.5-14.5) % Plt Count (130-400) K/uL MPV (7.4-10.4) fL Immature Gran % (Auto) % Neut % (Auto) % Lymph % (Auto) % Harvey % (Auto) % Eos % (Auto) % Baso % (Auto) % Neut # (Auto) (1.4-6.5) K/uL Lymph # (Auto) (1.2-3.4) K/uL Harvey # (Auto) (0.11-0.59) K/uL Eos # (Auto) (0-0.5) K/uL Baso # (Auto) (0-0.2) K/uL Immature Gran # (Auto) (0.00-0.02) K/uL PT 11.6 INR 1.2 H APTT 32.6 H PTT Ratio 1.2 ABG pH (7.35-7.45) ABG pCO2 (35-46) mmHg ABG pO2 (80-95) mmHg ABG HCO3 (19-24) mmol/L ABG O2 Saturation (90-95) % ABG Base Excess (-9-1.8) mEq/L Tommie Test (Pos) VBG pH 7.25 L (7.36-7.41) VBG pCO2 59 H (38-50) mmHg VBG pO2 29 mmHg VBG HCO3 26 mmol/L VBG O2 Saturation < 60.0 % VBG Base Excess -2.6 mEq/L Barometric Pressure 743.5 mm/Hg Oxygen Given Sodium (136-145) mmol/L Potassium (3.5-5.1) mmol/L Chloride (98-107) mmol/L Carbon Dioxide (21-32) mmol/L Anion Gap (3-11) BUN (7-18) mg/dl Creatinine (0.6-1.2) mg/dl Est Cr Clr Drug Dosing ml/min Est GFR ( Amer) ml/min Est GFR (Non-Af Amer) ml/min BUN/Creatinine Ratio (10-20) Glucose (70-99) mg/dl Lactate (0.4-2.0) mmol/L Calcium (8.5-10.1) mg/dl Magnesium (1.8-2.4) mg/dl Total Bilirubin (0.2-1) mg/dl AST (15-37) U/L ALT (12-78) U/L Alkaline Phosphatase (45-117) U/L Troponin I (0-0.045) ng/ml Total Protein (6.4-8.2) gm/dl Albumin (3.4-5.0) gm/dl Globulin (2.5-4.0) gm/dl Albumin/Globulin Ratio (0.9-2) Procalcitonin 0.18 Specimen Hemolysis Urine Color Urine Appearance (Clear) Urine pH (4.5-7.5) Ur Specific [place] (1.000-1.030) Urine Protein (Negative) Urine Glucose (UA) (Negative) Urine Ketones (Negative) Urine Blood (Negative) Urine Nitrite (Negative) Urine Bilirubin (Negative) Urine Urobilinogen (Negative) Ur Leukocyte Esterase (Negative) Urine WBC (Auto) (0-5) /hpf Urine RBC (Auto) (0-4) /hpf U Hyaline Cast (Auto) (0-5) /lpf U Epithel Cells (Auto) (0-5) /lpf Urine Bacteria (Auto) (Negative) Amorphous Sediment (None Prsent) Granular Casts (0) /lpf Urine Yeast Adenovirus (PCR) (NotDetected) B. pertussis DNA (PCR) (NotDetected) B.parapertussis DNA PCR (NotDetected) C. pneumoniae DNA (PCR) (NotDetected) Coronavirus OC43 (PCR) (NotDetected) Coronavirus HKU1 (PCR) (NotDetected) Coronavirus 229E (PCR) (NotDetected) SARS-CoV-2 (PCR) (NotDetected) Coronavirus NL63 (PCR) (NotDetected) Human Metapneumovir PCR (NotDetected) Influenza Type A (PCR) (NotDetected) Influenza Type B (PCR) (NotDetected) M. pneumoniae (PCR) (NotDetected) Parainfluenza 1 (PCR) (NotDetected) Parainfluenza 2 (PCR) (NotDetected) Parainfluenza 3 (PCR) (NotDetected) Parainfluenza 4 (PCR) (NotDetected) RSV (PCR) (NotDetected) Entero/Rhino (PCR) (NotDetected) 09/30/21 09/30/21 09/30/21 Range/Units 19:17 19:17 19:17 WBC (4.8-10.8) K/uL RBC (4.2-5.4) M/uL Hgb (12.0-16.0) g/dL Hct (37-47) % MCV (80-100) fL MCH (25-34) pg MCHC (32-36) g/dL RDW Std Deviation (36.4-46.3) fL RDW Coeff of Eleazar (11.5-14.5) % Plt Count (130-400) K/uL MPV (7.4-10.4) fL Immature Gran % (Auto) % Neut % (Auto) % Lymph % (Auto) % Harvey % (Auto) % Eos % (Auto) % Baso % (Auto) % Neut # (Auto) (1.4-6.5) K/uL Lymph # (Auto) (1.2-3.4) K/uL Harvey # (Auto) (0.11-0.59) K/uL Eos # (Auto) (0-0.5) K/uL Baso # (Auto) (0-0.2) K/uL Immature Gran # (Auto) (0.00-0.02) K/uL PT INR APTT PTT Ratio ABG pH (7.35-7.45) ABG pCO2 (35-46) mmHg ABG pO2 (80-95) mmHg ABG HCO3 (19-24) mmol/L ABG O2 Saturation (90-95) % ABG Base Excess (-9-1.8) mEq/L Tommie Test (Pos) VBG pH (7.36-7.41) VBG pCO2 (38-50) mmHg VBG pO2 mmHg VBG HCO3 mmol/L VBG O2 Saturation % VBG Base Excess mEq/L Barometric Pressure mm/Hg Oxygen Given Sodium 139 (136-145) mmol/L Potassium (3.5-5.1) mmol/L Chloride 109 H (98-107) mmol/L Carbon Dioxide 22 (21-32) mmol/L Anion Gap 8.0 (3-11) BUN 17 (7-18) mg/dl Creatinine 1.33 H (0.6-1.2) mg/dl Est Cr Clr Drug Dosing 25.5 ml/min Est GFR ( Amer) 46.8 ml/min Est GFR (Non-Af Amer) 40.4 ml/min BUN/Creatinine Ratio 12.6 (10-20) Glucose 164 H (70-99) mg/dl Lactate 3.9 H* (0.4-2.0) mmol/L Calcium 8.8 (8.5-10.1) mg/dl Magnesium (1.8-2.4) mg/dl Total Bilirubin 0.5 (0.2-1) mg/dl AST (15-37) U/L ALT 26 (12-78) U/L Alkaline Phosphatase 98 (45-117) U/L Troponin I < 0.015 (0-0.045) ng/ml Total Protein 7.7 (6.4-8.2) gm/dl Albumin 3.3 L (3.4-5.0) gm/dl Globulin 4.4 H (2.5-4.0) gm/dl Albumin/Globulin Ratio 0.7 L (0.9-2) Procalcitonin Cancelled Specimen Hemolysis Urine Color Urine Appearance (Clear) Urine pH (4.5-7.5) Ur Specific [place] (1.000-1.030) Urine Protein (Negative) Urine Glucose (UA) (Negative) Urine Ketones (Negative) Urine Blood (Negative) Urine Nitrite (Negative) Urine Bilirubin (Negative) Urine Urobilinogen (Negative) Ur Leukocyte Esterase (Negative) Urine WBC (Auto) (0-5) /hpf Urine RBC (Auto) (0-4) /hpf U Hyaline Cast (Auto) (0-5) /lpf U Epithel Cells (Auto) (0-5) /lpf Urine Bacteria (Auto) (Negative) Amorphous Sediment (None Prsent) Granular Casts (0) /lpf Urine Yeast Adenovirus (PCR) (NotDetected) B. pertussis DNA (PCR) (NotDetected) B.parapertussis DNA PCR (NotDetected) C. pneumoniae DNA (PCR) (NotDetected) Coronavirus OC43 (PCR) (NotDetected) Coronavirus HKU1 (PCR) (NotDetected) Coronavirus 229E (PCR) (NotDetected) SARS-CoV-2 (PCR) (NotDetected) Coronavirus NL63 (PCR) (NotDetected) Human Metapneumovir PCR (NotDetected) Influenza Type A (PCR) (NotDetected) Influenza Type B (PCR) (NotDetected) M. pneumoniae (PCR) (NotDetected) Parainfluenza 1 (PCR) (NotDetected) Parainfluenza 2 (PCR) (NotDetected) Parainfluenza 3 (PCR) (NotDetected) Parainfluenza 4 (PCR) (NotDetected) RSV (PCR) (NotDetected) Entero/Rhino (PCR) (NotDetected) 09/30/21 09/30/21 09/30/21 Range/Units 19:17 19:17 18:55 WBC 9.42 (4.8-10.8) K/uL RBC 4.84 (4.2-5.4) M/uL Hgb 14.1 (12.0-16.0) g/dL Hct 44.6 (37-47) % MCV 92.1 (80-100) fL MCH 29.1 (25-34) pg MCHC 31.6 L (32-36) g/dL RDW Std Deviation 51.4 H (36.4-46.3) fL RDW Coeff of Eleazar 15.2 H (11.5-14.5) % Plt Count 146 (130-400) K/uL MPV 10.6 H (7.4-10.4) fL Immature Gran % (Auto) 0.2 % Neut % (Auto) 81.4 % Lymph % (Auto) 13.8 % Harvey % (Auto) 4.4 % Eos % (Auto) 0.1 % Baso % (Auto) 0.1 % Neut # (Auto) 7.67 H (1.4-6.5) K/uL Lymph # (Auto) 1.30 (1.2-3.4) K/uL Harvey # (Auto) 0.41 (0.11-0.59) K/uL Eos # (Auto) 0.01 (0-0.5) K/uL Baso # (Auto) 0.01 (0-0.2) K/uL Immature Gran # (Auto) 0.02 (0.00-0.02) K/uL PT Cancelled INR Cancelled APTT Cancelled PTT Ratio Cancelled ABG pH (7.35-7.45) ABG pCO2 (35-46) mmHg ABG pO2 (80-95) mmHg ABG HCO3 (19-24) mmol/L ABG O2 Saturation (90-95) % ABG Base Excess (-9-1.8) mEq/L Tommie Test (Pos) VBG pH (7.36-7.41) VBG pCO2 (38-50) mmHg VBG pO2 mmHg VBG HCO3 mmol/L VBG O2 Saturation % VBG Base Excess mEq/L Barometric Pressure mm/Hg Oxygen Given Sodium (136-145) mmol/L Potassium (3.5-5.1) mmol/L Chloride (98-107) mmol/L Carbon Dioxide (21-32) mmol/L Anion Gap (3-11) BUN (7-18) mg/dl Creatinine (0.6-1.2) mg/dl Est Cr Clr Drug Dosing ml/min Est GFR ( Amer) ml/min Est GFR (Non-Af Amer) ml/min BUN/Creatinine Ratio (10-20) Glucose (70-99) mg/dl Lactate (0.4-2.0) mmol/L Calcium (8.5-10.1) mg/dl Magnesium (1.8-2.4) mg/dl Total Bilirubin (0.2-1) mg/dl AST (15-37) U/L ALT (12-78) U/L Alkaline Phosphatase (45-117) U/L Troponin I (0-0.045) ng/ml Total Protein (6.4-8.2) gm/dl Albumin (3.4-5.0) gm/dl Globulin (2.5-4.0) gm/dl Albumin/Globulin Ratio (0.9-2) Procalcitonin Specimen Hemolysis Urine Color Yellow Urine Appearance Cloudy A (Clear) Urine pH 8.5 H (4.5-7.5) Ur Specific [place] 1.020 (1.000-1.030) Urine Protein Trace H (Negative) Urine Glucose (UA) Negative (Negative) Urine Ketones Negative (Negative) Urine Blood Negative (Negative) Urine Nitrite Negative (Negative) Urine Bilirubin Negative (Negative) Urine Urobilinogen Negative (Negative) Ur Leukocyte Esterase Negative (Negative) Urine WBC (Auto) 1-5 (0-5) /hpf Urine RBC (Auto) 5-10 H (0-4) /hpf U Hyaline Cast (Auto) 1-5 (0-5) /lpf U Epithel Cells (Auto) >30 H (0-5) /lpf Urine Bacteria (Auto) 1+ H (Negative) Amorphous Sediment Present A (None Prsent) Granular Casts 1-5 H (0) /lpf Urine Yeast Not Reportable Adenovirus (PCR) (NotDetected) B. pertussis DNA (PCR) (NotDetected) B.parapertussis DNA PCR (NotDetected) C. pneumoniae DNA (PCR) (NotDetected) Coronavirus OC43 (PCR) (NotDetected) Coronavirus HKU1 (PCR) (NotDetected) Coronavirus 229E (PCR) (NotDetected) SARS-CoV-2 (PCR) (NotDetected) Coronavirus NL63 (PCR) (NotDetected) Human Metapneumovir PCR (NotDetected) Influenza Type A (PCR) (NotDetected) Influenza Type B (PCR) (NotDetected) M. pneumoniae (PCR) (NotDetected) Parainfluenza 1 (PCR) (NotDetected) Parainfluenza 2 (PCR) (NotDetected) Parainfluenza 3 (PCR) (NotDetected) Parainfluenza 4 (PCR) (NotDetected) RSV (PCR) (NotDetected) Entero/Rhino (PCR) (NotDetected) Diagnostic Findings Impressions Chest X-Ray 09/30/21 18:46 XR chest 1V portable HISTORY: 71 years-old Female SEPSIS acute sepsis COMPARISON: Chest CT 10/18/2020, chest radiograph 10/15/2020 TECHNIQUE: Portable AP view of the chest FINDINGS: Patient is rotated. Tracheostomy cannula overlies the midline. Surgical clips of the neck. Cardiomediastinal and hilar silhouettes are within normal limits. Severe emphysema with chronic interstitial coarsening. Mild consolidative opacities of the right lung base. No pneumothorax, large pleural effusion or overt pulmonary edema. No acute fracture. IMPRESSION: 1. Airspace opacities of the right lung base suggest pneumonia versus aspiration pneumonitis. 2. Emphysema with chronic interstitial coarsening. ACT 112: Negative or not required by law. The above report was generated using voice recognition software. It may contain grammatical, syntax or spelling errors. Electronically signed by: Lucian Limon M.D. 09/30/2021 7:46 PM Medications Administered Home Medication List Medication Instructions Recorded aspirin 81 mg chewable tablet 81 mg PO DAILY 07/29/19 simethicone 80 mg chewable tablet 80 mg PO QID 07/30/19 (Gas Relief 80 (simethicone)) potassium chloride 10 mEq 10 meq PO DAILY 09/19/19 tablet,extended release(part/cryst) (Klor-Con M) furosemide 20 mg tablet 20 mg PO QAM 12/31/19 metoprolol tartrate 50 mg tablet 50 mg PO BID 12/31/19 peg 400-propylene glycol 0.4 %-0.3 1 drp OPHTHALMIC (EYE) Q6 PRN 12/31/19 % eye drops (Systane (propylene glycol)) famotidine 20 mg tablet 20 mg PO BID 04/09/20 ferrous sulfate 325 mg (65 mg 325 mg PO DAILY 04/09/20 iron) tablet pantoprazole 40 mg tablet,delayed 40 mg PO DAILY 04/09/20 release (Protonix) multivitamin 1 tab PO DAILY 05/13/20 budesonide 180 mcg/actuation 1 inh INHALATION Q12H PRN 09/29/20 breath activated powder inhaler (Pulmicort Flexhaler) lasmiditan 100 mg tablet (Reyvow) 100 mg PO Q24H PRN 09/29/20 sucralfate 100 mg/mL oral 10 ml PO ACHS 09/29/20 suspension cyanocobalamin (vitamin B-12) 1,000 mcg PO DAILY cap 01/20/21 1,000 mcg capsule ondansetron HCl 4 mg tablet 4 mg PO Q8H PRN 01/20/21 buspirone 15 mg tablet 15 mg PO BID tab 04/21/21 erenumab-aooe 140 mg/mL 140 mg SUBCUT MONTHLY #1 ea 04/21/21 subcutaneous auto-injector ipratropium 0.5 mg-albuterol 3 mg 3 ml INHALATION Q4H PRN 04/21/21 (2.5 mg base)/3 mL nebulization soln topiramate 25 mg tablet (Topamax) 25 mg PO BID 30 Days #60 tab 04/21/21 amlodipine 2.5 mg tablet 2.5 mg PO DAILY 08/02/21 diphenhydramine HCl 12.5 mg/5 mL 50 mg PO TID 08/02/21 oral elixir levothyroxine 75 mcg tablet 75 mcg PO DAILY 08/02/21 lorazepam 0.5 mg tablet 0.5 mg PO BID 08/02/21 venlafaxine 75 mg tablet 75 mg PO BID 08/02/21 gabapentin 100 mg capsule 100 mg PO BID cap 08/23/21 Cepacol Lozenge 1 tab PO Q4H PRN 09/30/21 acetaminophen 500 mg tablet 1,000 mg PO DIRECTED PRN MDD 3 09/30/21 (Tylenol Extra Strength) GRAMS/24 HOURS aluminum-mag hydroxide-simethicone 30 ml PO Q8H PRN 09/30/21 225 mg-200 mg-25 mg/5 mL oral susp bismuth subsalicylate 262 mg/15 mL 524 mg PO Q6H PRN 09/30/21 oral suspension (Pepto-Bismol) docosanol 10 % topical cream 1 applic TOPICAL 5XD PRN 09/30/21 (Abreva) ondansetron HCl 4 mg tablet 4 mg PO DAILY 09/30/21 (Zofran) Code Status & VTE Plan VTE Prophylaxis Plan VTE Prophylaxis will be ordered: Yes Supervising Physician Co-Signing Physician Notes Attending addendum: I have physically seen this patient, have supervised the medical residents activities, and agree with the H&P unless as otherwise noted. Assessment and Plan: Acute respiratory failure with hypoxia/right lower lobe aspiration pneumonia/sepsis Continue trach collar with FiO2 20%, improving pulse ox from 78% to mid 90s Cefepime 2 g IV every 8 hours Duonebs every 4 hours while awake and every 2 hours when necessary. Aspiration precautions Follow blood culture and sensitivity Admit to monitored bed Consult pulmonology Remaining orders and notations as noted Resident Activity Tracking Resident Involvement: Resident Care Provided Care Provided: Adult Hospital Medicine (1) Hypothyroidism Hypothyroidism type: unspecified Qualified Code(s): E03.9 - Hypothyroidism, unspecified (2) COPD (chronic obstructive pulmonary disease) COPD type: emphysema Emphysema type: unspecified Qualified Code(s): J43.9 - Emphysema, unspecified (3) Hypertension Hypertension type: essential hypertension Qualified Code(s): I10 - Essential (primary) hypertension (4) Pneumonia Laterality: left Lung location: lower lobe of lung Pneumonia type: due to unspecified organism Qualified Code(s): J18.9 - Pneumonia, unspecified organism
--- NOTE | 2021-09-30 22:12 | XRay Report ---
KUB HISTORY: Acute generalized abdominal pain with nausea and vomiting abdominal pain/vomiting COMPARISON: KUB 10/31/2020 FINDINGS: Moderate gaseous distention of the stomach. The upper abdomen is excluded from the field-of -view. Mild gaseous distention of the large bowel with air-filled loops of small bowel also noted. Ch olecystectomy clips. No renal calculi. No ureteral calculi. No pneumoperitoneum or pneumatosis. Vascu lar calcifications are noted. No fracture. IMPRESSION: Nonobstructive bowel gas pattern with gaseous distention of the stomach and large bowel. ACT 112: Negative or not required by law. The above report was generated using voice recognition software. It may contain grammatical, syntax o r spelling errors. Electronically signed by: Lucian Limon M.D. 09/30/2021 10:10 PM
[2021-09-30] MEDS ORDERED: POLYETHYLENE (MIRALAX) 17 GM PACK PO PRN (22:55)
[2021-09-30] MEDS ORDERED: ACETAMINOPHEN 500 MG TAB PO PRN (22:55)
[2021-09-30] MEDS ORDERED: ONDANSETRON INJ 2 MG/ML 2 ML VIAL IV PRN (22:55)
[2021-09-30] MEDS ORDERED: NITROGLYCERIN SL 0.4 MG/TAB TAB SL PRN (22:55)
[2021-09-30] MEDS ORDERED: FLUTICASONE FUROATE 100MCG 14 PUFFS/INHALER INH PRN (23:06)
[2021-10-01] MEDS: ENOXAPARIN INJ 30 MG/0.3 ML SYR SQ SCH ×2 (00:20→22:31)
[2021-10-01] MEDS: ACETAMINOPHEN SUSP 500 MG/15.6 ML UDP PO PRN ×3 (00:21→22:29)
[2021-10-01] MEDS: SODIUM CHLORIDE 0.9% 1000ML 1,000 ML IV SCH ×2 (01:07→11:07)
[2021-10-01 05:01] LABS: Hematocrit (blood only) 34.3 % (37-47); Hemoglobin 10.8 g/dL (12.0-16.0); Immature Granulocytes # (auto) 0.01 K/uL (0.00-0.02); Immature Granulocytes % (auto) 0.1 %; Lymphocytes # (auto) 0.81 K/uL (1.2-3.4); Lymphocytes % (auto) 10.3 %; Mean Corpuscular Hemoglobin 28.6 pg (25-34); Mean Corpuscular Hgb Conc 31.5 g/dL (32-36); Mean Platelet Volume 9.4 fL (7.4-10.4); Monocytes # (auto) 0.12 K/uL (0.11-0.59); Monocytes % (auto) 1.5 %; Neutrophils # (auto) 6.91 K/uL (1.4-6.5); Neutrophils % (auto) 88.1 %; Platelet Count 110 K/uL (130-400); RDW Coefficient of Variation 15.2 % (11.5-14.5); RDW Standard Deviation 51.1 fL (36.4-46.3); Red Blood Count 3.77 M/uL (4.2-5.4); White Blood Count 7.85 K/uL (4.8-10.8)
[2021-10-01 05:26] LABS: BUN Creatinine Ratio 14.7 (10-20); Calcium 8.3 mg/dl (8.5-10.1); Creatinine Clr Calc Pharmacy 32.6 ml/min; Est GFR (African American) 62.3 ml/min; Est GFR (Non-African American) 53.8 ml/min; Magnesium 2.4 mg/dl (1.8-2.4); Potassium 3.6 mmol/L (3.5-5.1)
[2021-10-01] MEDS: LEVOTHYROXINE SODIUM 75 MCG TABLET PO SCH (06:05)
[2021-10-01] MEDS ORDERED: FUROSEMIDE 20 MG TAB PO SCH (09:00)
--- NOTE | 2021-10-01 10:26 | Hospitalist Progress Note ---
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 Acute Hypoxic Respiratory Failure: secondary to pneumonia -Oxygen desaturations to 70% prior to presentation to ED with increased work of breathing -ABG demonstrating -Improved on trach collar with FiO2 of 28% -Continue to monitor and wean supplemental oxygen as tolerated (2) Sepsis: Plan: -Upon presentation to ED with tachypnea and tachycardia -Elevated lactic acid to 3.9 on track -Repeat lactic acid 5.0 following 1500 cc bolus of NSS -Blood cultures pending -Continue on cefepime 2 g every 8h, (3) Pneumonia: Plan: RLL infiltrate,pt does not have a traches, so unless there is a fistulae, which has been r/o in the past with VFSS, aspiration pneumonia ruled out , 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 home hypertensive regimen including amlodipine 2.5 mg daily, Lasix 20 mg daily and metoprolol tartrate 50 mg twice daily (6) Hypothyroidism: Plan: Synthroid 75 mcg (7) COPD (chronic obstructive pulmonary disease): Plan: Albuterol fluticasone continue (8) DVT prophylaxis: Plan: DVT PPx: Lovenox CODE STATUS: FULL CODE (9) Abdominal pain: Plan: Patient is abdominal pain and abnormal KUB on admission 09/30/2021 with gaseous distention of the stomach and large bowel. There appears to be balls of stool in the rectum. We will attempt to do clock suppository to see if we can improve her bowel movement function and escalate her oral cathartic regimen. If this is on successful he may consider enema or manual disimpaction. Admission and Anticipated Discharge Date Admission Date: September 30, 2021 Subjective Patient appears chronically ill she is in some distress on exam it was found out that she had some abdominal discomfort which initially was not complaints on her presentation. She is being treated for a right lower lobe pneumonia which is likely gram-negative. The patient had a tracheostomy and therefore cannot have aspiration pneumonia unless she had some liquid go down her tracheostomy site. She is improved on her antibiotics but abdominal pain is now confounding. Review of Systems Review of Systems: Moderate distress and fatigue no headache, no visual changes no speech or swallowing issues no chest pain, pressure or palpitations Shortness of breath and loose coughing seeming difficult to clear mucus Right-sided abdominal pain on examination nausea or vomiting, diarrhea or constipation no dysuria, hematuria or frequency no focal joint pain or swelling no back pain, CVA tenderness or radicular pain no bruising, bleeding or rashes no focal signs of weakness or numbness or altered sensation no complaints of anxiety or depression.. Physical Exam Physical Exam: The patient appeared chronically ill BMI is 24 but clinically appears underweight Vital signs as documented. Head exam is normocephalic atraumatic Neck is with tracheostomy in place Lungs are coarse bilaterally Cardiac exam, Rhythm is regular.. No murmurs, rubs or gallops. Abdominal exam reveals normal bowel sounds tender right lower quadrant to the point where she pulled my hand away Extremities are trace bilaterally edematous and both pedal pulses are present Neurologic exam is alert and oriented, no focal loss of strength or sensation to right is patient cannot speak without her larynx Skin is without bruises or rashes Psychologically is with concerns for anxiety Results & Data Results & Data ([facility]) Vital Signs (Past 12 Hours) Vital Signs Temp Pulse Resp BP Pulse Ox Pulse Ox 09/30/21 23:00 90 24 96 09/30/21 22:55 98.2 F 85 16 97/58 L 100 100 PG Care Time/CCT Total # of Minutes Spent Total Time Spent with Patient: Total time spent is greater than 50% in coordination of care (as documented) at patient's floor/unit and/or counseling patient: Coding Level of Care Code 63800 Subseq Hosp Care Lvl 3 Diagnoses Acute hypoxemic respiratory failure J96.01 Sepsis A41.9 Pneumonia J18.9 Laterality: left Lung location: lower lobe of lung Pneumonia type: due to unspecified organism Tracheostomy present Z93.0 Hypertension I10 Hypertension type: essential hypertension Hypothyroidism E03.9 Hypothyroidism type: unspecified COPD (chronic obstructive pulmonary disease) J43.9 COPD type: emphysema Emphysema type: unspecified DVT prophylaxis Z29.9 Abdominal pain R10.9 (1) Hypothyroidism Hypothyroidism type: unspecified Qualified Code(s): E03.9 - Hypothyroidism, unspecified (2) COPD (chronic obstructive pulmonary disease) COPD type: emphysema Emphysema type: unspecified Qualified Code(s): J43.9 - Emphysema, unspecified (3) Hypertension Hypertension type: essential hypertension Qualified Code(s): I10 - Essential (primary) hypertension (4) Pneumonia Laterality: left Lung location: lower lobe of lung Pneumonia type: due to unspecified organism Qualified Code(s): J18.9 - Pneumonia, unspecified organism
[2021-10-01] MEDS ORDERED: bisacodyL 10 MG SUPP PR STA (12:06)
[2021-10-01] MEDS: VENLAFAXINE HCL 37.5 MG TAB PO SCH ×2 (12:06→22:28)
[2021-10-01] MEDS: GABAPENTIN 100 MG CAP PO SCH ×2 (12:07→22:29)
[2021-10-01] MEDS: busPIRone 15 MG TAB PO SCH ×2 (12:07→22:30)
[2021-10-01] MEDS: TOPIRAMATE 25 MG TAB PO SCH ×2 (12:07→22:30)
[2021-10-01] MEDS: POTASSIUM CHLORIDE 10 MEQ TABCR PO SCH (12:08)
[2021-10-01] MEDS: PANTOprazole 40 MG TAB PO SCH (12:08)
[2021-10-01] MEDS: amLODIPine BESYLATE 5 MG TAB PO SCH (12:08)
[2021-10-01] MEDS: ASPIRIN 81 MG ECTAB PO SCH (12:09)
[2021-10-01] MEDS: SIMETHICONE 80 MG CHEW PO SCH ×4 (12:09→22:30)
[2021-10-01] MEDS: SUCRALFATE 1 GM/10 ML UDC PO SCH ×4 (12:09→22:28)
[2021-10-01] MEDS: FAMOTIDINE 20 MG TAB PO SCH ×2 (12:09→22:28)
[2021-10-01] MEDS: ALUMINUM/MAGNESIUM SUSP 30 ML UDC PO PRN (12:12)
[2021-10-01] MEDS: LORazepam 0.5 MG TAB PO SCH ×2 (12:12→22:34)
[2021-10-01] MEDS: METOPROLOL TARTRATE 50 MG TAB PO SCH ×2 (12:12→23:11)
[2021-10-01] MEDS: SENNOSIDES 8.8 MG/5 ML UDC PO SCH (13:18)
[2021-10-01] MEDS ORDERED: CEFEPIME 2,000 MG in SYRINGE 0 ML IV SCH (18:00)
[2021-10-01] MEDS: ALUMINUM/MAGNESIUM SUSP 50 ML, diphenhydrAMINE Syrup 125 MG, LIDOCAINE VISCOUS 2% SOLN ... PO PRN (22:40)
[2021-10-01] MEDS: ALBUT/IPRATROP 3MG/0.5MG NEB 3 ML VIAL INH PRN (23:44)
[2021-10-02] MEDS: MELATONIN 3 MG TAB PO PRN ×2 (00:45→20:04)
--- NOTE | 2021-10-02 02:34 | Billing Data ---
Date of Service October 02, 2021 Coding Level of Care Code 60832 Initial Inpt Care Lvl 3
[2021-10-02] MEDS: LEVOTHYROXINE SODIUM 75 MCG TABLET PO SCH (06:01)
[2021-10-02 06:26] LABS: Basophils # (auto) 0.02 K/uL (0-0.2); Basophils % (auto) 0.4 %; Eosinophils # (auto) 0.23 K/uL (0-0.5); Eosinophils % (auto) 4.1 %; Hematocrit (blood only) 36.2 % (37-47); Hemoglobin 11.5 g/dL (12.0-16.0); Lymphocytes # (auto) 1.61 K/uL (1.2-3.4); Lymphocytes % (auto) 28.8 %; Mean Corpuscular Hgb Conc 31.8 g/dL (32-36); Mean Corpuscular Volume 91.2 fL (80-100); Mean Platelet Volume 9.7 fL (7.4-10.4); Monocytes # (auto) 0.51 K/uL (0.11-0.59); Monocytes % (auto) 9.1 %; Neutrophils # (auto) 3.22 K/uL (1.4-6.5); Neutrophils % (auto) 57.6 %; Platelet Count 118 K/uL (130-400); RDW Coefficient of Variation 15.4 % (11.5-14.5); RDW Standard Deviation 51.8 fL (36.4-46.3); Red Blood Count 3.97 M/uL (4.2-5.4); White Blood Count 5.59 K/uL (4.8-10.8)
[2021-10-02 06:49] LABS: BUN Creatinine Ratio 13.3 (10-20); Calcium 8.4 mg/dl (8.5-10.1); Creatinine Clr Calc Pharmacy 40.2 ml/min; Est GFR (African American) 80.5 ml/min; Est GFR (Non-African American) 69.4 ml/min; Potassium 3.2 mmol/L (3.5-5.1)
[2021-10-02] MEDS ORDERED: POTASSIUM CHLORIDE 10 MEQ / 100ML WTR IV STA (09:30)
--- NOTE | 2021-10-02 09:33 | Hospitalist Progress Note ---
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 Acute Hypoxic Respiratory Failure: secondary to pneumonia -Oxygen desaturations to 70% prior to presentation to ED with increased work of breathing - -Improved on trach collar and improved with antibiotics -Continue to monitor and wean supplemental oxygen as tolerated (2) Sepsis: Plan: -Upon presentation to ED with tachypnea and tachycardia-now resolving -Elevated lactic acid to 3.9 on track -Repeat lactic acid 5.0 following 1500 cc bolus of NSS -Blood cultures negative to date -Continue on cefepime 2 g every 8h, (3) Pneumonia: Plan: RLL infiltrate,pt does not have a traches, so unless there is a fistulae, which has been r/o in the past with VFSS, aspiration pneumonia ruled out , 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 home hypertensive regimen including amlodipine 2.5 mg daily, Lasix 20 mg daily and metoprolol tartrate 50 mg twice daily (6) Hypothyroidism: Plan: Synthroid 75 mcg (7) COPD (chronic obstructive pulmonary disease): Plan: Albuterol fluticasone continue (8) DVT prophylaxis: Plan: DVT PPx: Lovenox CODE STATUS: FULL CODE (9) Abdominal pain: Plan: Patient is abdominal pain and abnormal KUB on admission 09/30/2021 with gaseous distention of the stomach and large bowel. There appears to be balls of stool in the rectum. repeat xray surveillance Admission and Anticipated Discharge Date Admission Date: September 30, 2021 Subjective Patient appears chronically ill , pulmonary status is stable, she is tired today and will not cooperate. She is being treated for a right lower lobe pneumonia which is likely gram-negative. The patient had a laryngectomy and tracheostomy and therefore cannot have aspiration pneumonia unless she had some liquid go down her tracheostomy site as her posterior pharnyx is not connected to her lung. She is improved on her antibiotics Review of Systems Review of Systems: Moderate distress and fatigue no headache, no visual changes no speech or swallowing issues no chest pain, pressure or palpitations Shortness of breath and loose coughing seeming difficult to clear mucus Right-sided abdominal pain improved on examination nausea or vomiting, diarrhea or constipation no dysuria, hematuria or frequency no focal joint pain or swelling no back pain, CVA tenderness or radicular pain no bruising, bleeding or rashes no focal signs of weakness or numbness or altered sensation no complaints of anxiety or depression.. Physical Exam Physical Exam: The patient appeared chronically ill BMI is 24 but clinically appears underweight Vital signs as documented. Head exam is normocephalic atraumatic Neck is with tracheostomy in place Lungs are coarse bilaterally Cardiac exam, Rhythm is regular.. No murmurs, rubs or gallops. Abdominal exam reveals normal bowel sounds, less abdominal discomfort Extremities are trace bilaterally edematous and both pedal pulses are present Neurologic exam is alert and oriented, no focal loss of strength or sensation to right is patient cannot speak without her larynx Skin is without bruises or rashes Psychologically is with concerns for anxiety Results & Data Results & Data ([facility]) Vital Signs (Past 12 Hours) Vital Signs Temp Pulse Resp BP Pulse Ox 10/01/21 23:48 80 20 96 10/01/21 22:55 97.9 F 90 16 148/94 H 100 PG Care Time/CCT Total # of Minutes Spent Total Time Spent with Patient: Total time spent is greater than 50% in coordination of care (as documented) at patient's floor/unit and/or counseling patient: Coding Level of Care Code 61471 Subseq Hosp Care Lvl 2 Diagnoses Acute hypoxemic respiratory failure J96.01 Sepsis A41.9 Pneumonia J18.9 Laterality: left Lung location: lower lobe of lung Pneumonia type: due to unspecified organism Tracheostomy present Z93.0 Hypertension I10 Hypertension type: essential hypertension Hypothyroidism E03.9 Hypothyroidism type: unspecified COPD (chronic obstructive pulmonary disease) J43.9 COPD type: emphysema Emphysema type: unspecified DVT prophylaxis Z29.9 Abdominal pain R10.9 (1) Hypothyroidism Hypothyroidism type: unspecified Qualified Code(s): E03.9 - Hypothyroidism, unspecified (2) COPD (chronic obstructive pulmonary disease) COPD type: emphysema Emphysema type: unspecified Qualified Code(s): J43.9 - Emphysema, unspecified (3) Hypertension Hypertension type: essential hypertension Qualified Code(s): I10 - Essential (primary) hypertension (4) Pneumonia Laterality: left Lung location: lower lobe of lung Pneumonia type: due to unspecified organism Qualified Code(s): J18.9 - Pneumonia, unspecified organism
--- NOTE | 2021-10-02 09:41 | Electrocardiogram Report ---
Test Reason : Blood Pressure : / mmHG Vent. Rate : 099 BPM Atrial Rate : 099 BPM P-R Int : 116 ms QRS Dur : 060 ms QT Int : 350 ms P-R-T Axes : 077 061 096 degrees QTc Int : 449 ms Poor data quality, interpretation may be adversely affected Normal sinus rhythm Nonspecific ST and T wave abnormality Abnormal ECG When compared with ECG of 29-SEP-2020 07:34, No significant change Confirmed by Bowen Escobar ([id number]) on 10/02/2021 9:41:19 AM Referred By: [facility] Confirmed By:Bowen Escobar
[2021-10-02] MEDS ORDERED: MAGNESIUM SULFATE / D5W 1 GM/100 ML BAG IV ONE (09:45)
[2021-10-02] MEDS: SODIUM CHLORIDE 0.9% 1000ML 1,000 ML IV SCH ×3 (10:59→19:41)
[2021-10-02] MEDS: POTASSIUM CHLORIDE / WTR 10 MEQ/100 ML PLCT IV SCH ×3 (11:03→16:31)
[2021-10-02] MEDS: POTASSIUM CHLORIDE CRTAB 20 MEQ TABCR PO SCH ×2 (11:10→20:16)
[2021-10-02] MEDS: SUCRALFATE 1 GM/10 ML UDC PO SCH ×4 (11:11→20:02)
[2021-10-02] MEDS: busPIRone 15 MG TAB PO SCH ×2 (11:11→19:54)
[2021-10-02] MEDS: GABAPENTIN 100 MG CAP PO SCH ×2 (11:11→19:56)
[2021-10-02] MEDS: VENLAFAXINE HCL 37.5 MG TAB PO SCH ×2 (11:11→20:02)
[2021-10-02] MEDS: FAMOTIDINE 20 MG TAB PO SCH ×2 (11:11→20:03)
[2021-10-02] MEDS: SIMETHICONE 80 MG CHEW PO SCH ×4 (11:12→20:02)
[2021-10-02] MEDS: PANTOprazole 40 MG TAB PO SCH (11:12)
[2021-10-02] MEDS: SENNOSIDES 8.8 MG/5 ML UDC PO SCH (11:12)
[2021-10-02] MEDS: ASPIRIN 81 MG ECTAB PO SCH (11:12)
[2021-10-02] MEDS: TOPIRAMATE 25 MG TAB PO SCH ×2 (11:12→20:02)
[2021-10-02] MEDS: POTASSIUM CHLORIDE 10 MEQ TABCR PO SCH (11:13)
[2021-10-02] MEDS: LORazepam 0.5 MG TAB PO SCH ×2 (11:17→19:56)
[2021-10-02] MEDS: METOPROLOL TARTRATE 50 MG TAB PO SCH ×2 (11:17→19:56)
--- NOTE | 2021-10-02 15:05 | XRay Report ---
KUB HISTORY: Acute generalized abdominal pain with distention eval for colonic distension COMPARISON: KUB 09/30/2021 FINDINGS: Mild gaseous distention of the stomach. Gaseous distended loops of large bowel are redemons trated, notably within the abdominal left lower quadrant. No small bowel obstruction. Cholecystectomy . Surgical clip of the pelvis redemonstrated. No renal calculi. No ureteral calculi. No pneumoperiton eum or pneumatosis. No fracture. IMPRESSION: Nonobstructive bowel gas pattern with persistent gaseous distention of the left hemicolon. ACT 112: Negative or not required by law. The above report was generated using voice recognition software. It may contain grammatical, syntax o r spelling errors. Electronically signed by: Lucian Limon M.D. 10/02/2021 3:04 PM
[2021-10-02] MEDS: ALUMINUM/MAGNESIUM SUSP 30 ML UDC PO PRN (16:47)
[2021-10-02] MEDS: ACETAMINOPHEN SUSP 500 MG/15.6 ML UDP PO PRN ×2 (16:48→22:57)
[2021-10-02] MEDS: CEFEPIME 2,000 MG in SYRINGE 0 ML IV SCH (17:47)
[2021-10-02] MEDS: ENOXAPARIN INJ 30 MG/0.3 ML SYR SQ SCH (19:54)
[2021-10-02] MEDS: MoRPHine SULFATE 2 MG/ML CARP IV PRN (20:04)
[2021-10-02] MEDS: ALBUT/IPRATROP 3MG/0.5MG NEB 3 ML VIAL INH PRN (22:46)
[2021-10-02] MEDS ORDERED: COUGH DROP (SUGAR FREE) LOZ 24 LOZ/1 BOX BUCCAL ONE (23:33)
[2021-10-02] MEDS ORDERED: COUGH DROP (SUGAR FREE) LOZ 24 LOZ/1 BOX BUCCAL PRN (23:33)
[2021-10-03] MEDS: SODIUM CHLORIDE 0.9% 1000ML 1,000 ML IV SCH (01:01)
[2021-10-03] MEDS: SUCRALFATE 1 GM/10 ML UDC PO SCH ×4 (06:16→20:53)
[2021-10-03] MEDS: LEVOTHYROXINE SODIUM 75 MCG TABLET PO SCH (06:16)
[2021-10-03] MEDS: CEFEPIME 2,000 MG in SYRINGE 0 ML IV SCH ×2 (06:17→18:08)
[2021-10-03] MEDS ORDERED: ACETAMINOPHEN SUSP 500 MG/15.6 ML UDP PO PRN (09:37)
[2021-10-03] MEDS: ALUMINUM/MAGNESIUM SUSP 30 ML UDC PO PRN ×2 (09:56→18:06)
[2021-10-03] MEDS: ALBUT/IPRATROP 3MG/0.5MG NEB 3 ML VIAL INH PRN ×3 (10:19→23:38)
[2021-10-03] MEDS: SIMETHICONE 80 MG CHEW PO SCH ×4 (10:28→20:54)
[2021-10-03] MEDS: ACETAMINOPHEN SUSP 160 MG/5 ML BTL PO PRN (11:23)
[2021-10-03] MEDS: ASPIRIN 81 MG ECTAB PO SCH ×2 (11:35→13:08)
[2021-10-03] MEDS: busPIRone 15 MG TAB PO SCH ×3 (11:35→20:51)
[2021-10-03] MEDS: SENNOSIDES 8.8 MG/5 ML UDC PO SCH (11:36)
[2021-10-03] MEDS: LORazepam 0.5 MG TAB PO SCH ×3 (11:36→20:56)
[2021-10-03] MEDS: METOPROLOL TARTRATE 50 MG TAB PO SCH ×3 (11:36→20:52)
[2021-10-03] MEDS: FAMOTIDINE 20 MG TAB PO SCH ×3 (11:36→20:51)
[2021-10-03] MEDS: GABAPENTIN 100 MG CAP PO SCH ×3 (11:36→20:51)
[2021-10-03] MEDS: PANTOprazole 40 MG TAB PO SCH ×2 (11:36→13:07)
[2021-10-03] MEDS: POTASSIUM CHLORIDE CRTAB 20 MEQ TABCR PO SCH (11:36)
[2021-10-03] MEDS: TOPIRAMATE 25 MG TAB PO SCH ×3 (11:36→20:52)
[2021-10-03] MEDS: POTASSIUM CHLORIDE 10 MEQ TABCR PO SCH ×2 (11:36→13:15)
[2021-10-03] MEDS: VENLAFAXINE HCL 37.5 MG TAB PO SCH ×3 (11:37→20:54)
[2021-10-03] MEDS: MoRPHine SULFATE 2 MG/ML CARP IV PRN ×2 (12:12→18:16)
--- NOTE | 2021-10-03 15:10 | Hospitalist Progress Note ---
Date of Service October 03, 2021 Assessment & Plan (1) Pneumonia: Plan: RLL infiltrate. 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 Pt is a resident of [facility] must also cover for Pseudomonas. - CXR demonstrating airspace opacities within the right lung base - Continue cefepime for aspiration concerns - Previous speech therapy evaluations in 2019 did not demonstrate signs of aspiration. 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 Chandra as able to be sure her trachea occlusion device is in place. (2) Acute hypoxemic respiratory failure: Plan: Acute Hypoxic Respiratory Failure: secondary to pneumonia. - Oxygen desaturations to 70% prior to presentation to ED with increased work of breathing - Improved on trach collar and improved with antibiotics - Continue to monitor and wean supplemental oxygen as tolerated (3) Sepsis: Plan: Upon presentation to ED with tachypnea and tachycardia - now resolving. (4) Tracheostomy present: Plan: S/p laryngectomy from prior cancer. (5) Hypertension: Plan: Caution with hypotension associated with sepsis. Home hypertensive regimen including amlodipine 2.5 mg daily, Lasix 20 mg daily and metoprolol tartrate 50 mg twice daily. - BP presently 140/75. -> Presently on home metoprolol & amlodipine (6) Hypothyroidism: Plan: Last TSH was 0.26 in 08/2021. - Continue home Synthroid 75 mcg daily - Recheck TSH (7) COPD (chronic obstructive pulmonary disease): Plan: No shortness of breath. - Albuterol & fluticasone (8) Abdominal pain: Plan: Patient had abdominal pain and abnormal KUB on admission on 09/30/2021 with gaseous distention of the stomach and large bowel. There appears to be balls of stool in the rectum. - Repeat x-ray on 10/02 without significant change - No report of abdominal pain today for me. (9) DVT prophylaxis: Plan: Lovenox 30 mg SQ HS Admission and Anticipated Discharge Date Admission Date: September 30, 2021 Subjective Not much change today. Reports no fevers/chills, chest pain, shortness of breath, abdominal pain, nausea, or vomiting. Physical Exam Constitutional: WD/WN, vitals as above Eyes: EOM intact bilaterally; no conjunctival abnormality ENMT: external ear and nose normal, oropharynx normal Neck: + tracheostomy present Respiratory: normal respiratory effort, lungs clear to auscultation no respiratory distress Cardiovascular: RRR, no murmur, no edema Gastrointestinal (Abdomen): Inspection/Auscultation: abdomen normal to inspection; abdomen not distended Musculoskeletal: no cyanosis or clubbing, extremities motor strength 5/5 Skin: no rashes, warm and dry Neurologic: moves all extremities and awake Psychiatric: Orientation: alert, oriented to person and cooperative Results & Data Results & Data ([facility]) Vital Signs (Past 12 Hours) Vital Signs Temp Pulse Pulse Resp BP Pulse Ox 10/03/21 11:14 36.7 C 88 18 121/71 100 10/03/21 10:23 20 94 10/03/21 09:30 66 10/03/21 07:19 36.6 C 65 18 113/71 100 10/03/21 03:11 36.6 C 69 18 100/50 L 100 PG Care Time/CCT Total # of Minutes Spent Total Time Spent with Patient: Total time spent is greater than 50% in coordination of care (as documented) at patient's floor/unit and/or counseling patient: Coding Level of Care Code 69953 Subseq Hosp Care Lvl 2 Diagnoses Acute hypoxemic respiratory failure J96.01 Sepsis A41.9 Pneumonia J18.9 Laterality: left Lung location: lower lobe of lung Pneumonia type: due to unspecified organism Tracheostomy present Z93.0 Hypertension I10 Hypertension type: essential hypertension Hypothyroidism E03.9 Hypothyroidism type: unspecified COPD (chronic obstructive pulmonary disease) J43.9 COPD type: emphysema Emphysema type: unspecified DVT prophylaxis Z29.9 Abdominal pain R10.9 (1) Hypothyroidism Hypothyroidism type: unspecified Qualified Code(s): E03.9 - Hypothyroidism, unspecified (2) COPD (chronic obstructive pulmonary disease) COPD type: emphysema Emphysema type: unspecified Qualified Code(s): J43.9 - Emphysema, unspecified (3) Hypertension Hypertension type: essential hypertension Qualified Code(s): I10 - Essential (primary) hypertension (4) Pneumonia Laterality: left Lung location: lower lobe of lung Pneumonia type: due to unspecified organism Qualified Code(s): J18.9 - Pneumonia, unspecified organism
[2021-10-03 15:15] LABS: BUN Creatinine Ratio 8.5 (10-20); Calcium 8.8 mg/dl (8.5-10.1); Creatinine Clr Calc Pharmacy 36.2 ml/min; Est GFR (African American) 74.1 ml/min; Est GFR (Non-African American) 63.9 ml/min
[2021-10-03 16:00] LABS: Magnesium 2.6 mg/dl (1.8-2.4); Potassium 3.5 mmol/L (3.5-5.1)
[2021-10-03] MEDS: ALUMINUM/MAGNESIUM SUSP 50 ML, diphenhydrAMINE Syrup 125 MG, LIDOCAINE VISCOUS 2% SOLN ... PO PRN (16:40)
[2021-10-03] MEDS: ENOXAPARIN INJ 30 MG/0.3 ML SYR SQ SCH (20:53)
[2021-10-04] MEDS: ACETAMINOPHEN SUSP 160 MG/5 ML BTL PO PRN ×2 (02:07→18:05)
[2021-10-04] MEDS: LEVOTHYROXINE SODIUM 75 MCG TABLET PO SCH (05:27)
[2021-10-04] MEDS: CEFEPIME 2,000 MG in SYRINGE 0 ML IV SCH ×2 (05:28→18:06)
[2021-10-04 08:14] LABS: Hematocrit (blood only) 38.7 % (37-47); Hemoglobin 12.3 g/dL (12.0-16.0); Mean Corpuscular Hemoglobin 28.4 pg (25-34); Mean Corpuscular Hgb Conc 31.8 g/dL (32-36); Mean Corpuscular Volume 89.4 fL (80-100); Mean Platelet Volume 9.3 fL (7.4-10.4); Platelet Count 132 K/uL (130-400); RDW Standard Deviation 49.3 fL (36.4-46.3); Red Blood Count 4.33 M/uL (4.2-5.4); White Blood Count 7.74 K/uL (4.8-10.8)
[2021-10-04 08:32] LABS: BUN Creatinine Ratio 9.8 (10-20); Calcium 8.4 mg/dl (8.5-10.1); Creatinine Clr Calc Pharmacy 37.7 ml/min; Est GFR (African American) 77.2 ml/min; Est GFR (Non-African American) 66.6 ml/min; Magnesium 2.4 mg/dl (1.8-2.4); Potassium 3.8 mmol/L (3.5-5.1)
[2021-10-04 08:42] LABS: Thyroid Stimulating Hormone 2.06 uIu/ml (0.300-4.500)
[2021-10-04] MEDS: SUCRALFATE 1 GM/10 ML UDC PO SCH ×4 (09:43→21:18)
--- NOTE | 2021-10-04 10:28 | Hospitalist Progress Note ---
Date of Service October 04, 2021 Assessment & Plan (1) Pneumonia: Plan: RLL infiltrate. 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 Pt is a resident of [facility] must also cover for Pseudomonas. - CXR demonstrating airspace opacities within the right lung base - Continue cefepime for aspiration concerns - Previous speech therapy evaluations in 2019 did not demonstrate signs of aspiration. [facility] [employer] [employer] [facility] requests visit with Dr. Chandra as able to be sure her trachea occlusion device is in place. (2) Abdominal pain: Plan: Patient had abdominal pain and abnormal KUB on admission on 09/30/2021 with gaseous distention of the stomach and large bowel. There appears to be balls of stool in the rectum. - Repeat x-ray on 10/02 without significant change - Increased report of pain today. Will get cardiac w/u to be sure no cardiac issue. Consider GI c/s. 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 (3) Acute hypoxemic respiratory failure: Plan: Acute Hypoxic Respiratory Failure: secondary to pneumonia. - Oxygen desaturations to 70% prior to presentation to ED with increased work of breathing - Improved on trach collar and improved with antibiotics - Continue to monitor and wean supplemental oxygen as tolerated -> Down to 5L on TC today with good O2 sat. (4) Sepsis: Plan: Upon presentation to ED with tachypnea and tachycardia - now resolving. 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 (6) Hypertension: Plan: Caution with hypotension associated with sepsis. Home hypertensive regimen including amlodipine 2.5 mg daily, Lasix 20 mg daily and metoprolol tartrate 50 mg twice daily. - BP presently 140/65. -> Presently on home metoprolol & amlodipine (7) Hypothyroidism: Plan: Last TSH was 0.26 in 08/2021. This admission, TSH is 2.06. - Continue home Synthroid 75 mcg daily (8) COPD (chronic obstructive pulmonary disease): Plan: No shortness of breath. - Albuterol & fluticasone (9) DVT prophylaxis: Plan: Lovenox 30 mg SQ HS Admission and Anticipated Discharge Date Admission Date: September 30, 2021 Subjective More epigastric, burning pain today. She reports it had been ongoing since a few days prior to admission, though yesterday it was absent largely throughout the day until the evening. Reports no fevers/chills, chest pain, shortness of breath, or vomiting. Physical Exam Constitutional: WD/WN, vitals as above Eyes: EOM intact bilaterally; no conjunctival abnormality ENMT: external ear and nose normal, oropharynx normal Neck: + tracheostomy present Respiratory: normal respiratory effort, lungs clear to auscultation no re spiratory distress Cardiovascular: RRR, no murmur, no edema Gastrointestinal (Abdomen): Inspection/Auscultation: abdomen normal to inspection; abdomen not distended Musculoskeletal: no cyanosis or clubbing, extremities motor strength 5/5 Skin: no rashes, warm and dry Neurologic: moves all extremities and awake Psychiatric: Orientation: alert, oriented to person and cooperative Results & Data Results & Data ([facility]) Vital Signs (Past 12 Hours) Vital Signs Temp Pulse Pulse Resp BP Pulse Ox Pulse Ox 10/04/21 08:02 36.7 C 71 16 137/64 97 10/04/21 03:53 36.7 C 73 18 135/89 96 10/04/21 00:00 94 10/03/21 23:59 71 10/03/21 23:38 98 H 20 94 10/03/21 23:20 36.8 C 72 20 114/68 99 PG Care Time/CCT Total # of Minutes Spent Total Time Spent with Patient: Total time spent is greater than 50% in coordination of care (as documented) at patient's floor/unit and/or counseling patient: Coding Level of Care Code 21855 Subseq Hosp Care Lvl 3 Diagnoses Pneumonia J18.9 Pneumonia type: due to unspecified organism Laterality: left Lung location: lower lobe of lung Acute hypoxemic respiratory failure J96.01 Sepsis A41.9 Tracheostomy present Z93.0 Hypertension I10 Hypertension type: essential hypertension Hypothyroidism E03.9 Hypothyroidism type: unspecified COPD (chronic obstructive pulmonary disease) J43.9 COPD type: emphysema Emphysema type: unspecified Abdominal pain R10.9 DVT prophylaxis Z29.9 (1) Pneumonia Pneumonia type: due to unspecified organism Laterality: left Lung location: lower lobe of lung Qualified Code(s): J18.9 - Pneumonia, unspecified organism (2) Hypertension Hypertension type: essential hypertension Qualified Code(s): I10 - Essential (primary) hypertension (3) Hypothyroidism Hypothyroidism type: unspecified Qualified Code(s): E03.9 - Hypothyroidism, unspecified (4) COPD (chronic obstructive pulmonary disease) COPD type: emphysema Emphysema type: unspecified Qualified Code(s): J43.9 - Emphysema, unspecified
[2021-10-04] MEDS: ALUMINUM/MAGNESIUM SUSP 30 ML UDC PO PRN ×2 (11:38→20:27)
[2021-10-04] MEDS: METOPROLOL TARTRATE 50 MG TAB PO SCH ×2 (11:39→21:18)
[2021-10-04] MEDS: LORazepam 0.5 MG TAB PO SCH ×2 (11:40→21:24)
[2021-10-04] MEDS: PANTOprazole 40 MG TAB PO SCH ×2 (11:41→21:19)
[2021-10-04] MEDS: GABAPENTIN 100 MG CAP PO SCH ×2 (11:41→21:17)
[2021-10-04] MEDS: TOPIRAMATE 25 MG TAB PO SCH ×2 (11:42→21:17)
[2021-10-04] MEDS: VENLAFAXINE HCL 37.5 MG TAB PO SCH ×2 (11:42→21:18)
[2021-10-04] MEDS: ASPIRIN 81 MG ECTAB PO SCH (11:44)
[2021-10-04] MEDS: busPIRone 15 MG TAB PO SCH ×2 (11:44→21:17)
[2021-10-04] MEDS: FAMOTIDINE 20 MG TAB PO SCH ×2 (11:45→21:18)
[2021-10-04] MEDS: SIMETHICONE 80 MG CHEW PO SCH ×4 (11:46→21:18)
[2021-10-04] MEDS: POTASSIUM CHLORIDE 10 MEQ TABCR PO SCH (11:46)
[2021-10-04] MEDS: SENNOSIDES 8.8 MG/5 ML UDC PO SCH (11:46)
[2021-10-04] MEDS: MoRPHine SULFATE 2 MG/ML CARP IV PRN ×2 (12:47→20:27)
--- NOTE | 2021-10-04 14:11 | XRay Report ---
XR KUB/Abdomen 1 view CLINICAL HISTORY: Epigastric pain. COMPARISON STUDY: 10/02/2021 TECHNIQUE: Single view of the abdomen. FINDINGS: Compared to the previous examination, the bowel gas pattern is within normal limits without evidence for dilatation or obstruction. Less gaseous distention of the left hemicolon is present. There is no evidence for organomegaly or gross intra-abdominal mass. No abnormal calcifications are seen along th e course of the urinary tracts bilaterally. No acute osseous pathology. IMPRESSION: 1.No acute intra-abdominal abnormality. Decreased gaseous distention of the left kidney: ACT 112: Negative or not required by law. Electronically signed by: Santino Swann M.D. 10/04/2021 2:09 PM
[2021-10-04] MEDS: ENOXAPARIN INJ 30 MG/0.3 ML SYR SQ SCH (21:17)
[2021-10-04] MEDS: ALBUT/IPRATROP 3MG/0.5MG NEB 3 ML VIAL INH PRN (22:06)
[2021-10-05] MEDS ORDERED: KETOROLAC TROMETHAMINE 15 MG/ML VIAL IV ONE (03:27)
[2021-10-05] MEDS: LEVOTHYROXINE SODIUM 75 MCG TABLET PO SCH (05:45)
[2021-10-05] MEDS: CEFEPIME 2,000 MG in SYRINGE 0 ML IV SCH ×2 (05:45→17:24)
[2021-10-05 07:15] LABS: BUN Creatinine Ratio 14.7 (10-20); Calcium 8.7 mg/dl (8.5-10.1); Creatinine Clr Calc Pharmacy 36.1 ml/min; Est GFR (African American) 73.1 ml/min; Est GFR (Non-African American) 63.1 ml/min; Potassium 3.5 mmol/L (3.5-5.1)
[2021-10-05] MEDS: ALBUT/IPRATROP 3MG/0.5MG NEB 3 ML VIAL INH PRN (07:42)
[2021-10-05] MEDS: SUCRALFATE 1 GM/10 ML UDC PO SCH ×4 (10:20→22:04)
[2021-10-05] MEDS: SIMETHICONE 80 MG CHEW PO SCH ×4 (10:21→22:06)
[2021-10-05] MEDS: MoRPHine SULFATE 2 MG/ML CARP IV PRN ×2 (11:27→18:02)
[2021-10-05] MEDS: ALUMINUM/MAGNESIUM SUSP 30 ML UDC PO PRN ×2 (11:28→22:01)
[2021-10-05] MEDS: GABAPENTIN 100 MG CAP PO SCH ×2 (13:51→22:03)
[2021-10-05] MEDS: FAMOTIDINE 20 MG TAB PO SCH ×2 (13:51→22:04)
[2021-10-05] MEDS: ASPIRIN 81 MG ECTAB PO SCH (13:51)
[2021-10-05] MEDS: PANTOprazole 40 MG TAB PO SCH ×2 (13:51→22:06)
[2021-10-05] MEDS: LORazepam 0.5 MG TAB PO SCH ×2 (13:51→17:33)
[2021-10-05] MEDS: busPIRone 15 MG TAB PO SCH ×2 (13:51→17:34)
[2021-10-05] MEDS: METOPROLOL TARTRATE 50 MG TAB PO SCH ×2 (13:51→22:05)
[2021-10-05] MEDS: TOPIRAMATE 25 MG TAB PO SCH ×2 (13:52→22:04)
[2021-10-05] MEDS: SENNOSIDES 8.8 MG/5 ML UDC PO SCH (13:52)
[2021-10-05] MEDS: VENLAFAXINE HCL 37.5 MG TAB PO SCH ×2 (13:52→22:05)
--- NOTE | 2021-10-05 15:40 | Electrocardiogram Report ---
Test Reason : Blood Pressure : / mmHG Vent. Rate : 070 BPM Atrial Rate : 070 BPM P-R Int : 134 ms QRS Dur : 074 ms QT Int : 422 ms P-R-T Axes : 065 069 072 degrees QTc Int : 455 ms Normal sinus rhythm Normal ECG When compared with ECG of 30-SEP-2021 19:33, No significant change Confirmed by Rommel Almaraz ([id number]) on 10/05/2021 3:39:46 PM Referred By: [facility] Confirmed By:Rommel Almaraz
--- NOTE | 2021-10-05 16:44 | Hospitalist Progress Note ---
Date of Service October 05, 2021 Assessment & Plan (1) Pneumonia: Plan: RLL infiltrate. 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 Pt is a resident of [facility] must also cover for Pseudomonas. - CXR demonstrating airspace opacities within the right lung base - Continue cefepime for aspiration concerns - Previous speech therapy evaluations in 2019 did not demonstrate signs of aspiration. - Discussed with Dr. Chandra on 10/05. Unless she is frankly aspirating when she drinks (ie she drinks orange juice and it comes out her trach), her tracheal occlusion prosthesis is likely situated well. It is changed every few months because the one-way valve that lets her speak get encrusted with secretions. He will see her next week for an exchange. (2) Abdominal pain: Plan: Patient had abdominal pain and abnormal KUB on admission on 09/30/2021 with gaseous distention of the stomach and large bowel. There appears to be balls of stool in the rectum. - Repeat x-ray on 10/02 without significant change - Less pain today. Stopped her KCl to avoid pill esophagitis. Increased PPI to BID. (3) Acute hypoxemic respiratory failure: Plan: Acute Hypoxic Respiratory Failure: secondary to pneumonia. - Oxygen desaturations to 70% prior to presentation to ED with increased work of breathing - Improved on trach collar and improved with antibiotics - Continue to monitor and wean supplemental oxygen as tolerated -> Down to 5L on TC today with good O2 sat. (4) Sepsis: Plan: Upon presentation to ED with tachypnea and tachycardia - now resolving. 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 (6) Hypertension: Plan: Caution with hypotension associated with sepsis. Home hypertensive regimen including amlodipine 2.5 mg daily, Lasix 20 mg daily and metoprolol tartrate 50 mg twice daily. - BP presently 140/65. -> Presently on home metoprolol & amlodipine (7) Hypothyroidism: Plan: Last TSH was 0.26 in 08/2021. This admission, TSH is 2.06. - Continue home Synthroid 75 mcg daily (8) COPD (chronic obstructive pulmonary disease): Plan: No shortness of breath. - Albuterol & fluticasone (9) DVT prophylaxis: Plan: Lovenox 30 mg SQ HS Admission and Anticipated Discharge Date Admission Date: September 30, 2021 Subjective Left shoulder pain today. Some continued epigastric pain as well. Reports no fevers/chills, chest pain, shortness of breath, abdominal pain, nausea, or vomiting. Physical Exam Constitutional: WD/WN, vitals as above Eyes: EOM intact bilaterally; no conjunctival abnormality ENMT: external ear and nose normal, oropharynx normal Neck: + tracheostomy present Respiratory: normal respiratory effort, lungs clear to auscultation no respiratory distress Cardiovascular: RRR, no murmur, no edema Gastrointestinal (Abdomen): Inspection/Auscultation: abdomen normal to inspection; abdomen not distended Musculoskeletal: no cyanosis or clubbing, extremities motor strength 5/5 Skin: no rashes, warm and dry Neurologic: moves all extremities and awake Psychiatric: Orientation: alert, oriented to person and cooperative Results & Data Results & Data ([facility]) Vital Signs (Past 12 Hours) Vital Signs Temp Pulse Pulse Resp BP Pulse Ox 10/05/21 15:15 36.8 C 79 20 144/82 H 10/05/21 14:20 70 10/05/21 11:50 36.8 C 70 18 102/62 97 10/05/21 08:50 65 10/05/21 08:03 36.6 C 63 16 109/58 L 92 10/05/21 07:44 83 18 92 PG Care Time/CCT Total # of Minutes Spent Total Time Spent with Patient: Total time spent is greater than 50% in coordination of care (as documented) at patient's floor/unit and/or counseling patient: Coding Level of Care Code 79750 Subseq Hosp Care Lvl 2 Diagnoses Pneumonia J18.9 Pneumonia type: due to unspecified organism Laterality: left Lung location: lower lobe of lung Abdominal pain R10.9 Acute hypoxemic respiratory failure J96.01 Sepsis A41.9 Tracheostomy present Z93.0 Hypertension I10 Hypertension type: essential hypertension Hypothyroidism E03.9 Hypothyroidism type: unspecified COPD (chronic obstructive pulmonary disease) J43.9 COPD type: emphysema Emphysema type: unspecified DVT prophylaxis Z29.9 (1) Pneumonia Pneumonia type: due to unspecified organism Laterality: left Lung location: lower lobe of lung Qualified Code(s): J18.9 - Pneumonia, unspecified organism (2) Hypertension Hypertension type: essential hypertension Qualified Code(s): I10 - Essential (primary) hypertension (3) Hypothyroidism Hypothyroidism type: unspecified Qualified Code(s): E03.9 - Hypothyroidism, unspecified (4) COPD (chronic obstructive pulmonary disease) COPD type: emphysema Emphysema type: unspecified Qualified Code(s): J43.9 - Emphysema, unspecified
[2021-10-05] MEDS: DICLOFENAC SOD 1% GEL 100 GM TUBE EXT SCH (22:02)
[2021-10-05] MEDS: ENOXAPARIN INJ 30 MG/0.3 ML SYR SQ SCH (22:05)
[2021-10-05] MEDS: ACETAMINOPHEN SUSP 160 MG/5 ML BTL PO PRN (22:19)
[2021-10-05] MEDS: MELATONIN 3 MG TAB PO PRN (22:47)
[2021-10-06] MEDS ORDERED: KETOROLAC TROMETHAMINE 15 MG/ML VIAL IV ONE (01:40)
[2021-10-06] MEDS: LEVOTHYROXINE SODIUM 75 MCG TABLET PO SCH (05:36)
[2021-10-06] MEDS: CEFEPIME 2,000 MG in SYRINGE 0 ML IV SCH ×2 (05:37→18:04)
[2021-10-06] MEDS: SUCRALFATE 1 GM/10 ML UDC PO SCH ×4 (07:48→22:03)
[2021-10-06] MEDS: ALUMINUM/MAGNESIUM SUSP 30 ML UDC PO PRN ×3 (07:48→22:56)
[2021-10-06] MEDS: ACETAMINOPHEN SUSP 160 MG/5 ML BTL PO PRN ×2 (07:49→15:14)
[2021-10-06] MEDS: LORazepam 0.5 MG TAB PO SCH ×2 (08:49→22:08)
[2021-10-06 09:00] LABS: BUN Creatinine Ratio 17.2 (10-20); Creatinine Clr Calc Pharmacy 33.8 ml/min; Est GFR (African American) 67.7 ml/min; Est GFR (Non-African American) 58.4 ml/min; Potassium 4.2 mmol/L (3.5-5.1)
[2021-10-06] MEDS: DICLOFENAC SOD 1% GEL 100 GM TUBE EXT SCH ×3 (10:59→22:01)
[2021-10-06] MEDS: SIMETHICONE 80 MG CHEW PO SCH ×4 (11:00→22:05)
[2021-10-06] MEDS: ALBUT/IPRATROP 3MG/0.5MG NEB 3 ML VIAL INH PRN (14:46)
[2021-10-06] MEDS: guaiFENesin 600 MG TABCR PO SCH ×2 (15:10→22:04)
[2021-10-06] MEDS: SENNOSIDES 8.8 MG/5 ML UDC PO SCH (15:11)
[2021-10-06] MEDS: ASPIRIN 81 MG ECTAB PO SCH (15:11)
[2021-10-06] MEDS: METOPROLOL TARTRATE 50 MG TAB PO SCH ×2 (15:11→22:04)
[2021-10-06] MEDS: PANTOprazole 40 MG TAB PO SCH ×2 (15:11→22:05)
[2021-10-06] MEDS: TOPIRAMATE 25 MG TAB PO SCH ×2 (15:11→22:05)
[2021-10-06] MEDS: VENLAFAXINE HCL 37.5 MG TAB PO SCH ×2 (15:11→22:05)
[2021-10-06] MEDS: FAMOTIDINE 20 MG TAB PO SCH ×2 (15:11→22:04)
[2021-10-06] MEDS: GABAPENTIN 100 MG CAP PO SCH ×2 (15:12→22:04)
[2021-10-06] MEDS: busPIRone 15 MG TAB PO SCH ×2 (15:12→22:03)
[2021-10-06] MEDS: amLODIPine BESYLATE 5 MG TAB PO SCH (15:14)
--- NOTE | 2021-10-06 15:58 | Hospitalist Progress Note ---
Date of Service October 06, 2021 Assessment & Plan (1) Pneumonia: Plan: RLL infiltrate. 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 Pt is a resident of [facility] must also cover for Pseudomonas. - CXR demonstrating airspace opacities within the right lung base - Continue cefepime for aspiration concerns - Previous speech therapy evaluations in 2019 did not demonstrate signs of aspiration. - Discussed with Dr. Chandra on 10/05. Unless she is frankly aspirating when she drinks (ie she drinks orange juice and it comes out her trach), her tracheal occlusion prosthesis is likely situated well. It is changed every few months because the one-way valve that lets her speak get encrusted with secretions. He will see her next week for an exchange. - Doing well today. (2) Abdominal pain: Plan: Patient had abdominal pain and abnormal KUB on admission on 09/30/2021 with gaseous distention of the stomach and large bowel. There appears to be balls of stool in the rectum. - Repeat x-ray on 10/02 without significant change. - No pain today. Stopped her KCl to avoid pill esophagitis. Increased PPI to BID. (3) Acute hypoxemic respiratory failure: Plan: Acute Hypoxic Respiratory Failure: secondary to pneumonia. - Oxygen desaturations to 70% prior to presentation to ED with increased work of breathing - Improved on trach collar and improved with antibiotics - Continue to monitor and wean supplemental oxygen as tolerated (4) Sepsis: Plan: Upon presentation to ED with tachypnea and tachycardia - now resolving. 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 (6) Hypertension: Plan: Caution with hypotension associated with sepsis. Home hypertensive regimen including amlodipine 2.5 mg daily, Lasix 20 mg daily and metoprolol tartrate 50 mg twice daily. - BP presently 120/65. -> Presently on home metoprolol & amlodipine (7) Hypothyroidism: Plan: Last TSH was 0.26 in 08/2021. This admission, TSH is 2.06. - Continue home Synthroid 75 mcg daily (8) COPD (chronic obstructive pulmonary disease): Plan: No shortness of breath. - Albuterol & fluticasone (9) DVT prophylaxis: Plan: Lovenox 30 mg SQ HS Admission and Anticipated Discharge Date Admission Date: September 30, 2021 Subjective Doing well today. Reports no fevers/chills, chest pain, shortness of breath, abdominal pain, nausea, or vomiting. Physical Exam Constitutional: WD/WN, vitals as above Eyes: EOM intact bilaterally; no conjunctival abnormality ENMT: external ear and nose normal, oropharynx normal Neck: + tracheostomy present Respiratory: normal respiratory effort, lungs clear to auscultation no respiratory distress Cardiovascular: RRR, no murmur, no edema Gastrointestinal (Abdomen): Inspection/Auscultation: abdomen normal to inspec tion; abdomen not distended Musculoskeletal: no cyanosis or clubbing, extremities motor strength 5/5 Skin: no rashes, warm and dry Neurologic: moves all extremities and awake Psychiatric: Orientation: alert, oriented to person and cooperative Results & Data Results & Data ([facility]) Vital Signs (Past 12 Hours) Vital Signs Temp Pulse Resp BP Pulse Ox 10/06/21 15:09 36.8 C 68 18 117/68 95 10/06/21 14:46 80 18 93 10/06/21 07:00 36.7 C 60 16 129/67 95 PG Care Time/CCT Total # of Minutes Spent Total Time Spent with Patient: Total time spent is greater than 50% in coordination of care (as documented) at patient's floor/unit and/or counseling patient: Coding Level of Care Code 01019 Subseq Hosp Care Lvl 2 Diagnoses Pneumonia J18.9 Pneumonia type: due to unspecified organism Laterality: left Lung location: lower lobe of lung Abdominal pain R10.9 Acute hypoxemic respiratory failure J96.01 Sepsis A41.9 Tracheostomy present Z93.0 Hypertension I10 Hypertension type: essential hypertension Hypothyroidism E03.9 Hypothyroidism type: unspecified COPD (chronic obstructive pulmonary disease) J43.9 COPD type: emphysema Emphysema type: unspecified DVT prophylaxis Z29.9 (1) Pneumonia Pneumonia type: due to unspecified organism Laterality: left Lung location: lower lobe of lung Qualified Code(s): J18.9 - Pneumonia, unspecified organism (2) Hypertension Hypertension type: essential hypertension Qualified Code(s): I10 - Essential (primary) hypertension (3) Hypothyroidism Hypothyroidism type: unspecified Qualified Code(s): E03.9 - Hypothyroidism, unspecified (4) COPD (chronic obstructive pulmonary disease) COPD type: emphysema Emphysema type: unspecified Qualified Code(s): J43.9 - Emphysema, unspecified
[2021-10-06] MEDS: MoRPHine SULFATE 2 MG/ML CARP IV PRN (21:57)
[2021-10-06] MEDS: MELATONIN 3 MG TAB PO PRN (21:57)
[2021-10-06] MEDS: ENOXAPARIN INJ 30 MG/0.3 ML SYR SQ SCH (22:06)
[2021-10-07] MEDS: MoRPHine SULFATE 2 MG/ML CARP IV PRN ×3 (03:21→09:29)
[2021-10-07] MEDS: ALUMINUM/MAGNESIUM SUSP 30 ML UDC PO PRN ×2 (03:21→11:12)
[2021-10-07] MEDS: CEFEPIME 2,000 MG in SYRINGE 0 ML IV SCH (06:26)
[2021-10-07] MEDS: LEVOTHYROXINE SODIUM 75 MCG TABLET PO SCH (06:26)
[2021-10-07 07:32] VITALS: PULSE 63; TEMP 97.9; O2SAT 97
[2021-10-07] MEDS: DICLOFENAC SOD 1% GEL 100 GM TUBE EXT SCH (09:29)
[2021-10-07] MEDS: LORazepam 0.5 MG TAB PO SCH (09:29)
[2021-10-07] MEDS: FAMOTIDINE 20 MG TAB PO SCH (09:30)
[2021-10-07] MEDS: guaiFENesin 600 MG TABCR PO SCH (09:30)
[2021-10-07] MEDS: PANTOprazole 40 MG TAB PO SCH (09:30)
[2021-10-07] MEDS: SIMETHICONE 80 MG CHEW PO SCH ×2 (09:30→12:06)
[2021-10-07] MEDS: VENLAFAXINE HCL 37.5 MG TAB PO SCH (09:30)
[2021-10-07] MEDS: TOPIRAMATE 25 MG TAB PO SCH (09:30)
[2021-10-07] MEDS: SENNOSIDES 8.8 MG/5 ML UDC PO SCH (09:30)
[2021-10-07] MEDS: GABAPENTIN 100 MG CAP PO SCH (09:30)
[2021-10-07] MEDS: SUCRALFATE 1 GM/10 ML UDC PO SCH ×2 (09:30→11:12)
[2021-10-07] MEDS: METOPROLOL TARTRATE 50 MG TAB PO SCH (09:30)
[2021-10-07] MEDS: busPIRone 15 MG TAB PO SCH (09:30)
[2021-10-07] MEDS: amLODIPine BESYLATE 5 MG TAB PO SCH (09:31)
[2021-10-07] MEDS: ASPIRIN 81 MG ECTAB PO SCH (09:31)
[2021-10-07 12:21] VITALS: BP 127/60
--- NOTE | 2021-10-07 15:18 | Discharge Summary ---
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 Patient does reside at [facility], and per the report she was found with vomitus/sputum around her stoma site and oxygen saturations in the 70s on room air, subsequently put on trach collar with oxygen and had no improvement before being brought to the ER. Reportedly has not been eating much over the last several days with some nausea and vomiting as well as fever prior to presentation. In the ED was found to be 87% on 2 L trach collar with subsequent titration up to 10 L trach collar with improvement of oxygenation. Had a positive lactic acid at 3.9. Trach collar was secured by respiratory therapy as well as balloon inflated. Patient improved following that time. Has a previous history of multiple aspiration pneumonia events. Currently endorses some generalized lower abdominal pressure/pain. No longer nauseous or with any continued vomiting. Continuing to have intermittent increased oral secretions. Is interested in eating and drinking and feeling better at this point time. Principal Diagnosis Right lower lobe pneumonia Discharge Exam Constitutional WD/WN, vitals as above Eyes EOM intact bilaterally; no conjunctival abnormality ENMT external ear and nose normal, oropharynx normal Neck + tracheostomy present Respiratory normal respiratory effort, lungs clear to auscultation no respiratory distress Cardiovascular RRR, no murmur, no edema Gastrointestinal (Abdomen) Inspection/Auscultation: abdomen normal to inspection; abdomen not distended Musculoskeletal no cyanosis or clubbing, extremities motor strength 5/5 Skin no rashes, warm and dry Neurologic moves all extremities and awake Psychiatric Orientation: alert, oriented to person and cooperative Discharge Data Allergies Allergy/AdvReac Type Severity Reaction Status Date / Time alendronate sodium Allergy Unknown ON CENTRE Verified 09/30/21 19:29 CREST MED LIST penicillin V Allergy Unknown ON CENTRE Verified 09/30/21 19:29 CREST MED LIST sulfadiazine Allergy Unknown ON CENTRE Verified 09/30/21 19:29 CREST MED LIST Consultations 09/30/21 19:50 ED Decision to Admit Stat Hospital Course (1) Pneumonia: RLL infiltrate. 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 Pt is a resident of [facility] must also cover for Pseudomonas. - CXR demonstrating airspace opacities within the right lung base - Previous speech therapy evaluations in 2019 did not demonstrate signs of aspiration. - Discussed with Dr. Chandra on 10/05. Unless she is frankly aspirating when she drinks (ie she drinks orange juice and it comes out her trach), her tracheal occlusion prosthesis is likely situated well. It is changed every few months because the one-way valve that lets her speak get encrusted with secretions. He will see her next week for an exchange. - Doing well today. Respiratory status at baseline. Finished 7 days of cefepime. No further abx needed. (2) Abdominal pain: Patient had abdominal pain and abnormal KUB on admission on 09/30/2021 with gaseous distention of the stomach and large bowel. There appears to be balls of stool in the rectum. - Repeat x-ray on 10/02 without significant change. - No pain today. Stopped her KCl to avoid pill esophagitis. (3) Acute hypoxemic respiratory failure: Acute Hypoxic Respiratory Failure: secondary to pneumonia. - Oxygen desaturations to 70% prior to presentation to ED with increased work of breathing - Improved on trach collar and improved with antibiotics - Continue to monitor and wean supplemental oxygen as tolerated (4) Sepsis: Upon presentation to ED with tachypnea and tachycardia - now resolved. (5) Tracheostomy present: S/p laryngectomy from prior cancer. (6) Hypertension: Caution with hypotension associated with sepsis. Home hypertensive regimen including amlodipine 2.5 mg daily, Lasix 20 mg daily and metoprolol tartrate 50 mg twice daily. - BP presently 120/65. -> Presently on home metoprolol & amlodipine (7) Hypothyroidism: Last TSH was 0.26 in 08/2021. This admission, TSH is 2.06. - Continue home Synthroid 75 mcg daily (8) COPD (chronic obstructive pulmonary disease): No shortness of breath. - Albuterol & fluticasone (9) DVT prophylaxis: Lovenox 30 mg SQ HS Total Time Total Time Spent Total Time Spent (In Minutes): 35 Discharge Plan Discharge Items Patient Disposition: Trans Resident Long-Term Care Reason For Visit: ASPIRATION EVENT, HYPOXIA Discharge Diagnosis: Right lower lobe pneumonia, hypoxemia Activity: Resume your previous activity Non-emergency contact: Primary Care Provider and Surgeon Call non-emergency contact if: your symptoms worsen Follow-up/Referrals: [facility] [Primary Care Provider] - Aristeo Chandra MD, DDS [Surgeon] - (Please see Dr. Chandra this week for tracheal prosthesis replacement.) Diet: Regular Addtl Attending Provider Instructions: Ms. Maria was admitted for a right lower lobe pneumonia. This was treated with cefepime, and she improved considerably. She completed her course in the hospital and is now at her baseline respiratory status. We did hold her potassium supplement as her potassium was normal and she had a lot of epigastric pain/GERD, so I worried about pill esophagitis. Pending Studies at Discharge: No Stand-Alone Forms: My [facility] Skilled Items Patient informed of condition?: Yes DNR: No Discharge Level of Care: Skilled Communicable Disease: No Discharge Prognosis: Stable Lines: None Urinary Catheter: No Medications and DC Order Prescriptions: Continued gabapentin 100 mg capsule 100 mg PO BID RF: 0 ondansetron HCl 4 mg tablet 4 mg PO Q8H PRN (Reason: Nausea) RF: 0 buspirone 15 mg tablet 15 mg PO BID RF: 0 ipratropium-albuterol 0.5 mg-3 mg(2.5 mg base)/3 mL solution for nebulization 3 ml inhalation Q4H PRN (Reason: Shortness Of Breath) RF: 0 erenumab-aooe 140 mg/mL auto-injector 140 mg subcut MONTHLY Qty: 1 RF: 5 topiramate [Topamax] 25 mg tablet 25 mg PO BID 30 Days Qty: 60 RF: 1 aspirin 81 mg Tablet,Chewable 81 mg PO DAILY RF: 0 simethicone [Gas Relief 80 (simethicone)] 80 mg Tablet,Chewable 80 mg PO QID RF: 0 furosemide 20 mg Tablet 20 mg PO QAM RF: 0 metoprolol tartrate 50 mg Tablet 50 mg PO BID RF: 0 Systane (propylene glycol) 0.4-0.3 % Drops 1 drp OPHTHALMIC (EYE) Q6 PRN (Reason: Dry Eyes) RF: 0 multivitamin Tablet 1 tab PO DAILY RF: 0 famotidine 20 mg Tablet 20 mg PO BID RF: 0 pantoprazole [Protonix] 40 mg Tablet,Delayed Release (Dr/Ec) 40 mg PO DAILY RF: 0 ferrous sulfate 325 mg (65 mg iron) Tablet 325 mg PO DAILY RF: 0 cyanocobalamin (vitamin B-12) 1,000 mcg capsule 1,000 mcg PO DAILY RF: 0 sucralfate 100 mg/mL suspension 10 ml PO ACHS RF: 0 Pulmicort Flexhaler 180 mcg/actuation aerosol powdr breath activated 1 inh INHALATION Q12H PRN (Reason: Shortness Of Breath) RF: 0 Reyvow 100 mg tablet 100 mg PO Q24H PRN (Reason: migraine justice>7) RF: 0 levothyroxine 75 mcg Tablet 75 mcg PO DAILY RF: 0 venlafaxine 75 mg tablet 75 mg PO BID RF: 0 lorazepam 0.5 mg tablet 0.5 mg PO BID RF: 0 amlodipine 2.5 mg Tablet 2.5 mg PO DAILY RF: 0 diphenhydramine HCl 12.5 mg/5 mL Elixir 50 mg PO TID RF: 0 docosanol [Abreva] 10 % Cream 1 applic TOPICAL 5XD PRN (Reason: Cold Sores) RF: 0 alum-mag hydroxide-simeth 225-200-25 mg/5 mL Suspension 30 ml PO Q8H PRN (Reason: Acid Reflux) RF: 0 ondansetron HCl [Zofran] 4 mg Tablet 4 mg PO DAILY RF: 0 acetaminophen [Tylenol Extra Strength] 500 mg Tablet 1,000 mg PO DIRECTED MDD 3 GRAMS/24 HOURS PRN (Reason: Pain (Scale Score 7-10)) RF: 0 bismuth subsalicylate [Pepto-Bismol] 262 mg/15 mL Suspension 524 mg PO Q6H PRN (Reason: DIARRHEA/NAUSEA) RF: 0 Cepacol Lozenge 1 tab PO Q4H PRN (Reason: Sore Throat) RF: 0 Discontinued potassium chloride [Klor-Con M10] 10 mEq Tablet,Er Particles/Crystals 10 meq PO DAILY RF: 0 Discharge Orders: Discharge Order (Routine); Ordered 10/07/21 Ordered By: Elfego Connell Admission Data Admit Date/Time: 09/30/21 21:34 Attending Provider: Elfego Connell Admit Provider: Lucio Kiser Primary Care Provider: [facility] Other Providers: [facility] ; Elfego Connell ; Ihsan Sorto Other Interventions: Discharge Summary Assessment (RN) Last Done: 10/07/21 12:20 Coding Level of Care Code D/C DAY MANAGEMENT >30 MINS Diagnoses Pneumonia J18.9 Pneumonia type: due to unspecified organism Laterality: left Lung location: lower lobe of lung Abdominal pain R10.9 Acute hypoxemic respiratory failure J96.01 Sepsis A41.9 Tracheostomy present Z93.0 Hypertension I10 Hypertension type: essential hypertension Hypothyroidism E03.9 Hypothyroidism type: unspecified COPD (chronic obstructive pulmonary disease) J43.9 COPD type: emphysema Emphysema type: unspecified DVT prophylaxis Z29.9
== END 2021-10-07 14:29 | DRG 871 ==
LOC: ED 18:33 → EDINP 21:34 → SUATTDRO 21:34 → 2W 22:14

== ENCOUNTER 2022-12-11 08:36 | Inpatient (IN) ==
[~2022-12-11 08:36] MED LIST changes: -ACET160S3 PO; -ACET1SUS42 PO; -ALBINS/ NEB; -ALUM1SUS PO; -ARTISOL12 OPB; -ASPCH81X PO; -ATOR-24 PO; -BENZ10LO2 PEG; -BISA10SU38 PR; -BUSP15TA70 PO; -CHOL20007 PO; -FOLI1TAB8 PO; -FRS/40 PO; -IPRA-64 INH; -LEVA1.255 NEB; -LEVO-459 PO; -LEVO100T7 PO; +LIDOCAINE 1% LOCAL 20 ML VIAL ONE; -LOPE-5 PEG; -LORA-741 PO; -MAGIC1 PO; -METO25TA56 PO; -MOMLX PO; -OXGN; -OXGN MS; -OXYC-90 PO; -POLY1SOL6 OPB; -PRED10TA PO; -PRLSR20 PO; -PRNJ PO; -RANI150T85 PO; -RBTUDL5 PO; -SIME1CHW14 PO; -SODIENE PR; -SODIUM CHLORIDE NEB; -VENL75CA73 PO; -VNTHFA/IN INH; -[UNRECOGNIZED DRUG - CODE] NEB; -[UNRECOGNIZED DRUG - CODE] PO
--- NOTE | 2022-12-11 08:38 | Pre Anesthesia Assessment ---
Date of Service December 11, 2022 Pre Sedation Assessment Cardiovascular RRR, no murmur, no edema Respiratory normal respiratory effort, lungs clear to auscultation Pre-Sedation Airway Assessment Smoking Status: Unknown if ever smoked Hx Sleep Apnea: No Hx Difficult Intubation: No Short, Thick Neck: No Thyromental Distance: > or= 3.5 Finger Breadths Oral Cavity: + WNL Mallampati Class: III ASA: ASA3 Procedure Planning Contraindications for Sedation: none Current Medications Reviewed: Yes Notes The planned sedation has been discussed with the patient. Informed Consent was obtained. I have identified the patient, determined the appropriateness of sedation and have assessed the patient immediately prior to the procedure. All medicine(s) and interventions are by my order.
--- NOTE | 2022-12-11 08:39 | History & Physical Bridge Note ---
Date of Service December 11, 2022 History & Physical Bridge Note I have examined the patient, reviewed the History & Physical and in the interval since the performance of the History & Physical I have noted the following changes of clinical significance: no changes noted
[2022-12-11] MEDS: fentaNYL citrate 100 MCG/2 ML VIAL ONE ×2 (09:49→16:00)
[2022-12-11] MEDS ORDERED: niCARdipine HCL INJ 2.5 MG/ML 10 ML AMP ONE (11:11)
[2022-12-11] MEDS ORDERED: MIDAZOLAM HCL 5 MG/ML 1 ML VIAL ONE (11:11)
[2022-12-11] MEDS ORDERED: HEPARIN (PORCINE) 1000 UNIT/ML 10 ML (CATH LAB USE ONLY) ONE (11:11)
[2022-12-11] MEDS ORDERED: NITROGLYCERIN/D5W 100MCG/ML 20ML SYR ONE (11:29)
[2022-12-11] MEDS ORDERED: fentaNYL citrate 100 MCG/2 ML VIAL ONE ×2 (11:36→12:50)
[2022-12-11] MEDS ORDERED: MIDAZOLAM HCL 1 MG/ML 2ML VIAL ONE ×3 (12:50→14:18)
[2022-12-11] MEDS ORDERED: PROTAMINE SULFATE 10 MG/ML 5 ML VIAL IV ONE (14:04)
[2022-12-11] MEDS ORDERED: NALOXONE HCL 0.4 MG/1 ML VIAL/CARP ONE ×2 (14:49→17:23)
--- NOTE | 2022-12-11 15:21 | Post Anesthesia Assessment ---
Date of Service December 11, 2022 Post Sedation Assessment Vital Signs Temp Pulse Resp BP BP Pulse Ox O2 Del Method 12/11/22 15:10 98 H 16 112/72 Trach Collar 12/11/22 14:55 106 H 16 96/58 L Trach Collar 12/11/22 08:49 Trach Collar 12/11/22 08:49 98.2 F 91 H 20 160/136 H 95 Trach Collar O2 Flow Rate FiO2 12/11/22 15:10 6 12/11/22 14:55 6 12/11/22 08:49 12/11/22 08:49 30 Recovery Score Activity: Moves 2 extremities Respiration: Dyspnea/Limited Breathing Circulation: +/-20% PreAnes Value Consciousness: Arouseable (by name) Oxygen Saturation: O2 needed for >90% Post Anesthesia Score: 6 Discharge Sedation Level of Care: Fast Track Phase II Post Sedation Plan On clinical assessment, the patient appears to have tolerated the sedation without complications. Patient is recovering as anticipated. Patient will continue to be monitored by nursing and may be discharged when sedation discharge criteria are met per below protocol. Upon Completions of procedure up to 15 minutes continue every 5 minute vital signs and the P.A.R. score; then discharge to a Phase I or Fast Track to Phase II per the following guidelines: * Discharge Patient to appropriate Phase II area if PAR is 8 or greater or return to pre- procedure baseline. The post - procedure orders will be as directed. * If PAR score is less than 8 or not return to pre-procedure baseline then patient will follow Phase I monitoring till PAR is reached for Phase II. The Phase I may be done in procedure room or may call to secure a Phase I area. * If naloxone or flumazenil are used for reversal, hold in Phase I for continued monitoring from when last reversal dose was given for a minimum of 60 minutes or longer pending the nurse and/or physician discretion of patient condition before discharge to Phase II. Please call the Sedation Physician to re-evaluate and complete post-note for discharge to Phase II area. Do NOT discharge from procedure sedation or Phase 1 until post- sedation evaluation note is complete by procedure /sedation MD Sedation Discharge Instructions to be given to the patient at discharge to home.
[2022-12-11] MEDS ORDERED: NITROGLYCERIN 2% OINTMENT 30GM TUBE EXT ONE (15:44)
[2022-12-11] MEDS ORDERED: ACETAMINOPHEN 1,000 MG/100 ML VIAL IV STA (15:48)
[2022-12-11] MEDS ORDERED: ACETAMINOPHEN 1000 MG/100 ML IV IV ONE (15:49)
[2022-12-11] MEDS ORDERED: ALBUT/IPRATROP 3MG/0.5MG NEB 3 ML VIAL INH PRN (15:53)
[2022-12-11] MEDS ORDERED: LORazepam 2 MG/1 ML VIAL IV PRN (15:59)
[2022-12-11] MEDS ORDERED: SODIUM CHLORIDE 0.9% 1000ML 1,000 ML IV SCH (16:00)
--- NOTE | 2022-12-11 16:11 | Endovascular Procedure Note ---
[facility] Endovascular Procedure Rpt Pre & Post Diagnosis Critical limb ischemia/PAD I identified the patient and participated in the time-out.: Yes Procedure Operation Date: 12/11/22 09:30 Actual Procedures p Angiogram Extremity Unilateral - Craig Yee MD p Femoral Popliteal Balloon - Craig Yee MD s Ultrasound Vascular Access - Craig Yee MD s Iliac Balloon - MD darwin Trivedi Angio Extremity Bilateral - Craig Yee MD Surgeon Epi Yee MD Certified Optician Diebler Estimated Blood Loss 50 Findings See Below Abdominal aorta--Calcified, diffuse mild disease Right lower extremity-- -100% RT GILLIAN occlusion. -Reconstitutes in distal common iliac just before bifurcation External iliac with mild diffuse disease -CONTINUITY EDITOR small, mild diffuse disease -SFA small, patent with mild diffuse disease -Popliteal patent with mild diffuse disease -RAMÓN patent proximally -LABORER TIN CAN patent proximally, peroneal patent proximally Left lower extremity-- -Common iliac diffuse 30% disease, external iliac 30% diffuse disease, internal iliac widely patent -99% mid stenosis. SFA/profunda in part fill via collaterals -SFA diffuse severe disease up to 80% -Popliteal patent with mild disease -RAMÓN patent with sluggish flow, tapers prior to ankle -Peroneal patent -LABORER TIN CAN occluded, reconstitutes at the ankle and gives off plantar arteries. Anesthesia Type RN Sedation Radiation Exposure (mGv) Radiation (mGy): 361 Contrast Contrast: 120 Complications Left thigh hematoma from SFA access Disposition Accompanied Patient To Recovery: Yes Disposition: Import/Export Clerk Holding Description of Procedure Right CONTINUITY EDITOR obtained under ultrasound guidance, short 5Fr sheath placed Right common iliac shown to be 100% occluded just proximal to bifurcation Right radial artery access obtained under ultrasound guidance with placement of 5 Fr slender sheath Abdominal aortogram with pigtail in abdominal aorta Selective angiography of left lower extremity with 0.35 seeker catheter placed into external iliac Concern for 100% occlusion of CONTINUITY EDITOR with collaterals and lack of appropriate length equipment to intervene on left CONTINUITY EDITOR from wrist. Left SFA access under ultrasound guidance with placement of 4 Fr micropuncture sheath Attempt made to place 5 Fr sheath unsuccessful and wire/catheter removed, pressure held 45 cm 5 Fr destination sheath placed from right radial artery to right subclavian artery 5 Fr JR4 guide catheter placed to ostium of left GILLIAN Left CONTINUITY EDITOR stenosis crossed with whisper wire and distal intraluminal position confirmed via injection through OTW balloon Angioplasty of left CONTINUITY EDITOR with 3.0 balloon Angiography revealed extravasation of contrast from SFA access site Prolonged balloon inflation to SFA with 3.0 balloon. Angioplasty of left CONTINUITY EDITOR with 5.0 balloon with appropriate expansion of CONTINUITY EDITOR Angiography again revealed extravasation of contrast from SFA and treated with repeat prolonged balloon inflation, manual compression and reversal of anticoagulation with protamine. Post procedure CONTINUITY EDITOR well expanded. Sluggish 2 vessel runoff to foot. Ongoing manual compression in holding area for thigh hematoma. Mod sedation: [id number] Vessel closure: TR band, manual closure Summary: 1. Left lower extremity -- 99% mid CONTINUITY EDITOR, diffuse severe SFA disease up to 80%. Diffuse tibial vessel disease with sluggish 2 vessel runoff to the foot via RAMÓN, peroneal. Occluded DPA. 2. Right lower extremity -- 100% ostial GILLIAN, reconstitutes in distal GILLIAN. Patent SFA/popliteal, proximal tibial vessels. 3. Angioplasty of left CONTINUITY EDITOR with 5.0 balloon 4. Procedure complicated by LT SFA extravasation/thigh hematoma. Treated with prolonged balloon inflation, manual compression and heparin reversal. Recommendations: -- Repeat H/H -- DAPT with ASA/Clopidgrel when blood counts stable -- Repeat non-invasive testing as an outpatient -- Pain control for ischemic rest pain -- Consider additional SFA angioplasty I attest to the content of the Intraoperative Record and any orders documented therein. Any exceptions are noted below. Vascular Charges Angiography/Venography Procedure 1: Angiography/Venography charges: [id number] Initial 3rd order or selective abd, pelvic, or LE branch Procedure 2: Angiography/Venography charges: [id number] Aortography, abd + b/l iliofem LE, catheter, radiological S&I Lower Extremity Interventions Procedure 1: Lower Extremity Intervention charges: [id number] Angioplasty, femoral, popliteal artery(s), unilateral Additional Services Procedure 1: Additional Services Charges: 88863 Moderate sedation initial 15 min Procedure 2: Additional Services Charges: 60621 Moderate sedation, each additional 15 min Procedure 3: Additional Services Charges: 90520 Ultrasound guidance - vascular access Procedure 4: Additional Services Charges: 67382 Ultrasound guidance - vascular access Procedure 5: Additional Services Charges: 97333 Ultrasound guidance - vascular access
[2022-12-11] MEDS ORDERED: ALUMINUM/MAGNESIUM/SIMETH (MAALOX MAX) 30 ML UDC PO PRN (16:29)
[2022-12-11] MEDS ORDERED: NALOXONE HCL 0.4 MG/1 ML VIAL/CARP IV STA ×3 (17:22→17:47)
[2022-12-11] MEDS ORDERED: SODIUM CHLORIDE 0.9% 1000ML 1,000 ML IV ONE (17:27)
[2022-12-11] MEDS ORDERED: STAT IV Infusion **Titration per Protocol STA ×2 (17:28→17:32)
[2022-12-11] MEDS ORDERED: NOREPINEPHRINE/D5W 4 MG/250 ML PLCT IV SCH (17:30)
[2022-12-11] MEDS ORDERED: FLUMAZENIL 0.1 MG/1 ML 10 ML VIAL IV STA (17:31)
[2022-12-11] MEDS ORDERED: NALOXONE HCL 5 MG in 0.9 % SODIUM CHLORIDE 87.5 ML IV SCH (17:45)
--- NOTE | 2022-12-11 17:46 | Hospitalist Consultation ---
Date of Consultation December 11, 2022 Assessment & Plan (1) Postoperative hypovolemic shock: S/p angioplasty in the afternoon on 12/11, with complication of ?left thigh hematoma and rapid development of profound hypotension and decreased responsiveness - obtunded/unresponsive on exam, femoral pulses present but profoundly hypotension to 70s/40s despite several fluid boluses, initiation of vasopressors and several doses of Narcan. - suspect both hypovolemic/hemorrhagic shock due to left thigh hematoma, as well as distributive shock due to narcotic/sedative medications intra-operatively - admit to ICU - consult Cardiology (Dr. Yee) for possible acute intervention - s/p NSS 1L bolus, maintenance IVFs, and Levophed - continue to titrate per ICU - s/p Narcan x3, Narcan gtt and Flumazenil ordered - pending administration - ordered CBC/CMP/Mg/hsTrop/ABG/lactate as well as PT/PTT/INR and type/screen - hold Aspirin/Plavix due to concern for active bleed (2) Hypotension: Profound hypotension, in context of above. - hold home anti-hypotensives, fluids/vasopressors as stated above (3) Acute encephalopathy: Obtunded and unresponsive to verbal/noxious stimuli --> in context of above. - close monitoring of mental/neurologic status per ICU (4) PAD (peripheral artery disease): S/p angioplasty as stated above. - Dr. Yee consulted - appreciate ongoing recs - held ASA/Plavix as stated above due to suspected active bleed (5) Laryngeal cancer: S/p tracheostomy 10 years ago, with chronic trach collar. - continue supplemental O2 as needed to maintain sats 88-92% (COPD) (6) COPD (chronic obstructive pulmonary disease): Chronic, without wheezes on exam or evidence for acute exacerbation. - continue home inhalers when able (7) Anxiety: Continue home meds when able (8) GERD (gastroesophageal reflux disease): Utilize Protonix 40mg IV BID for now (9) Hypothyroidism: Continue home Synthroid when able Plan FEN/GI: NPO while obtunded, IVFs/vasopressors DVT Prophylaxis: chemoppx contraindicated due to concern for active bleed Code Status: full code - attempted to contact patient's sister to explain situation and re-ascertain code status but no answer, left message to call hospital to discuss Disposition: ICU Supervising Physician Co-Signing Physician Notes I personally saw and examined the patient. I verified all mccabe points and agree with resident physician Dr Lazaro Brewer, with the following exceptions and/or additions: 72 year old s/p BOTTLE CARRIER angioplasty performed earlier today. Required naloxone during procedure due to opiates for pain control. Discussed with Dr Yee and requesting admission to PCU for pain management. WILBUR Lopez initially sent to see patient and advised I come to bedside immediately. O/E Pale, minimally responsive to noxious stimuli, left radial pulse not palpable, palpable carotid pulses, bradypnea, poor inspiratory air entry throughout, small left femoral hematoma, dry gangrene on all toes on left feet, unable to palpate pulses in foot, no peripheral cap refill and all 4 extremities cold. BP on arrival to PCU 98/53. Reduced to 61/49. When I arrived unable to get a BP. Exam as above. Nitroglycerin paste appropriately removed prior to arrival. NSS 1L bolus given. Given history - Naloxone 0.4mg x3 15 minutes apart given and patient become much more alert following this. Discussed with ICU attending given very difficult vascular access patient and likely need for radial monitoring. Discussed with Dr Fairbanks who arrived at bedside. BP 96/79 on transfer to ICU. Discussed with resident physician Dr Brewer A/P Post operative hypovolemic shock - suspect multifactorial due to nitro paste, opiates, acute blood loss from hematoma. Type and screen, CBC, CMP, trop, Lactate pending History of Present Illness Reason for Consultation: hypotension, poor responsiveness Requesting Physician: Dr. Epi Yee Attending Physician: Epi Yee MD History of Present Illness Yane Maria is a 72yo female with PMHx significant for PAD, left LE ulcers, h/o Raynaud's disease, hyperlipidemia, hypertension, hypothyroidism, h/o stoma tracheostomy x10 years due to laryngeal cancer (on chronic 4-6L supplemental O2), COPD, and anxiety. She presented to [facility] on 12/11 for outpatient angioplasty of left common femoral artery. She was seen by Dr. Yee on 12/04 for evaluation of left LE ulcerations as well as symptoms of left LE claudication. Had doppler done showing possible left BOTTLE CARRIER/SFA disease and thus was scheduled for angioplasty. Angioplasty showed severe diffuse SFA disease along with tibial and pedal vessel disease; it was complicated by ?left thigh hematoma requiring compression and heparin reversal. Patient was given Versed/Fentanyl for sedation during the procedure and was thus given Naloxone 0.4mg IV x3 due to decreased responsiveness after the procedure, and Narcan gtt as well as Flumazenil was also ordered due to persist decreased responsiveness. Due to hematoma she was given Protamine sulfate 10mg IV x1 for reversal as she had been given Heparin IV boluses for procedure. Patient was also hypotensive to 80s/40s post-operatively and required NSS 1L bolus but remained hypotensive without ability to obtain BP; she was thus started on Levophed at 0.05 mcg/kg/min. Hospitalist was consulted for further management; she will be transferred to ICU due to profound hypotension, shock (2/2 hypovolemic/hemorrhagic vs distributive due to narcotics) and decreased responsiveness. Allergies Allergy/AdvReac Type Severity Reaction Status Date / Time alendronate sodium Allergy Unknown ON CENTRE Verified 12/04/22 10:03 CREST MED LIST penicillin V Allergy Unknown ON CENTRE Verified 12/04/22 10:03 CREST MED LIST sulfadiazine Allergy Unknown ON CENTRE Verified 12/04/22 10:03 CREST MED LIST Home Medications Medication Instructions Recorded Confirmed Type aspirin 81 mg chewable tablet 81 mg PO QAM 07/29/19 12/11/22 History simethicone 80 mg chewable tablet 80 mg PO QID 07/30/19 12/11/22 History (Gas Relief 80 (simethicone)) furosemide 20 mg tablet 20 mg PO QAM 12/31/19 12/11/22 History metoprolol tartrate 50 mg tablet 50 mg PO BID 12/31/19 12/11/22 History famotidine 20 mg tablet 20 mg PO BID 04/09/20 12/11/22 History ferrous sulfate 325 mg (65 mg 325 mg PO QAM 04/09/20 12/11/22 History iron) tablet pantoprazole 40 mg tablet,delayed 40 mg PO QAM 04/09/20 12/11/22 History release (Protonix) multivitamin 1 tab PO QAM 05/13/20 12/11/22 History budesonide 180 mcg/actuation 1 inh inhalation Q12H PRN 09/29/20 12/11/22 History breath activated powder inhaler Shortness Of Breath (Pulmicort Flexhaler) lasmiditan 100 mg tablet (Reyvow) 100 mg PO Q24H PRN migraines 09/29/20 12/11/22 History cyanocobalamin (vitamin B-12) 1,000 mcg PO QAM 01/20/21 12/11/22 History 1,000 mcg capsule buspirone 15 mg tablet 15 mg PO BID 04/21/21 12/11/22 History ipratropium 0.5 mg-albuterol 3 mg 3 ml inhalation Q4H PRN Shortness 04/21/21 12/11/22 History (2.5 mg base)/3 mL nebulization Of Breath soln amlodipine 2.5 mg tablet 2.5 mg PO QAM 08/02/21 12/11/22 History diphenhydramine HCl 12.5 mg/5 mL 50 mg PO TID 08/02/21 12/11/22 History oral elixir levothyroxine 75 mcg tablet 75 mcg PO QAM 08/02/21 12/11/22 History lorazepam 0.5 mg tablet 0.5 mg PO BID 08/02/21 12/11/22 History venlafaxine 75 mg tablet 75 mg PO BID 08/02/21 12/11/22 History acetaminophen 500 mg tablet 1,000 mg PO UD PRN Pain (Scale 09/30/21 12/11/22 History (Tylenol Extra Strength) Score 7-10) bismuth subsalicylate 262 mg/15 mL 524 mg PO Q6H PRN DIARRHEA/NAUSEA 09/30/21 12/11/22 History oral suspension (Pepto-Bismol) docosanol 10 % topical cream 1 applic topical 5XD PRN Cold Sores 09/30/21 12/11/22 History (Abreva) ondansetron HCl 4 mg tablet 4 mg PO Q8H PRN nausea/vomiting 09/30/21 12/11/22 History (Zofran) gabapentin 100 mg capsule 200 mg PO BID 07/14/22 12/11/22 History guaifenesin 100 mg/5 mL oral liquid 200 mg PO Q6H PRN Cough 07/14/22 12/11/22 History topiramate 50 mg tablet 50 mg PO BID 30 days #60 tabs 07/14/22 12/11/22 Rx Menthol-Ascorbic Acid Lozenge 1 flo PO Q4H PRN Sore Throat 07/20/22 12/11/22 History aluminum-mag hydroxide-simethicone 30 ml PO Q8H PRN Acid Reflux 07/20/22 12/11/22 History 225 mg-200 mg-25 mg/5 mL oral susp bisacodyl 10 mg rectal suppository 10 mg ME QPM PRN Constipation 07/20/22 12/11/22 History (Dulcolax (bisacodyl)) erenumab-aooe 140 mg/mL 140 mg subcut Q30D 07/20/22 12/11/22 History subcutaneous auto-injector magnesium hydroxide 800 mg/5 mL 30 mg PO UD PRN Constipation 07/20/22 12/11/22 History oral suspension peg 400-propylene glycol (PF) 0.4 1 drp ophthalmic (eye) Q8H PRN Dry 07/20/22 12/11/22 History %-0.3 % eye drops in a dropperette Eyes (Systane (PF)) sodium phosphates 19 gram-7 197 ml ME QAM PRN Constipation 07/20/22 12/11/22 History gram/118 mL enema (Fleet Enema) sucralfate 1 gram tablet 1 g PO BID 07/20/22 12/11/22 History Patient History Medical History Anemia Cancer Hx breast, lung and laryngeal cancer (larynx radiation, laryngectomy 2008) Chronic pain syndrome Chronic respiratory failure Constipation COPD (chronic obstructive pulmonary disease) Depression with anxiety Dysphagia Elevated hemidiaphragm GERD (gastroesophageal reflux disease) History of COVID-19 11/2020, pneumonia Hx MRSA infection Hx of chronic respiratory failure Hx of hypokalemia Hx of malignant neoplasm larynx and breast Hx of migraine headaches Hx of Raynaud's syndrome Hyperlipemia Hypertension Hypothyroidism Insomnia Muscle weakness Generalized On home oxygen therapy 2L via trach mask Osteoarthritis Tracheostomy in place Vitamin A deficiency 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 Family/Other Prostate cancer Sister , Passed age 64 of DC No problems noted. Sister No problems noted. Sister No problems noted. Sister No problems noted. Brother No problems noted. Son , Passed as child in MVA No problems noted. Son , Passed as child in MVA No problems noted. Son No problems noted. Son No problems noted. Daughter No problems noted. Social History Smoking Status: Unknown if ever smoked Cigarettes Per Day: 3 ppd, 40 pack year history, quit 2008; Hx Alcohol Use: No Hx Substance Use: No Preferred Language: Armenian Communication Ability: Effective Visual Impairment: Limited Hearing Ability: Normal Chemical Waste Management Technician Required: No Beliefs That Will Affect Care: None marital status: Single Current Living Situation: Senior Living Current Living Situation Comment: [facility] current occupational status: retired current occupation: Retired Other Information That Helps Us Care for You: No Feels Safe at Home: Yes Safety Concerns: Feels Safe At This Time caffeine: Yes (0-1 cup / day ) during the past year weight has: remained stable Assistive Devices: Wheelchair Review of Systems Review of Systems: All systems reviewed & are unremarkable except as noted in HPI & below Physical Exam Physical Exam: General: Patient is obtunded, unresponsive to both verbal/noxious stimuli. Pale. HEENT: Atraumatic, normocephalic. Trach collar in place with supplemental O2 flowing. Pulm: CTAB A&P. -wheezes, -rales, -rhonchi. Symmetrical chest rise. No increase work of breathing. No respiratory distress. Cardiac: Tachycardic rate, regular rhythm, -mrg. Radial pulses non-palpable, femoral pulses 2+ bilaterally. Right RA site with overlying dressing c/d/i. Left femoral site with dressing c/d/i. Abdominal: soft, non-tender, non-distended, BS x 4 Skin: pale, left LE ulcerations visualized Results & Data Results & Data ([facility]) Vital Signs (Past 12 Hours) Vital Signs Temp Pulse Resp BP BP Pulse Ox O2 Del Method 12/11/22 16:19 100 H 16 98/53 L 12/11/22 15:40 96 H 16 157/82 H Trach Collar 12/11/22 15:25 109 H 16 144/89 H Trach Collar 12/11/22 15:10 98 H 16 112/72 Trach Collar 12/11/22 14:55 106 H 16 96/58 L Trach Collar 12/11/22 08:49 Trach Collar 12/11/22 08:49 36.8 C 91 H 20 160/136 H 95 Trach Collar O2 Flow Rate FiO2 12/11/22 16:19 12/11/22 15:40 6 12/11/22 15:25 6 12/11/22 15:10 6 12/11/22 14:55 6 12/11/22 08:49 12/11/22 08:49 30 Resident Activity Tracking Resident Involvement: Resident Care Provided Care Provided: Adult Hospital Medicine (1) Hypothyroidism Hypothyroidism type: unspecified Qualified Code(s): E03.9 - Hypothyroidism, unspecified (2) COPD (chronic obstructive pulmonary disease) COPD type: emphysema Emphysema type: unspecified Qualified Code(s): J43.9 - Emphysema, unspecified (3) GERD (gastroesophageal reflux disease) Esophagitis presence: esophagitis presence not specified Qualified Code(s): K21.9 - Gastro-esophageal reflux disease without esophagitis
[2022-12-11 18:27] LABS: Hematocrit (blood only) 31.6 % (37.0-47.0); Hemoglobin 9.8 g/dl (12.0-16.0); Mean Corpuscular Hemoglobin 28.7 pg (25.0-34.0); Mean Corpuscular Volume 92.7 fL (80.0-100.0); Mean Platelet Volume 9.9 fL (9.4-12.4); Platelet Count 317 K/uL (130-400); RDW Coefficient of Variation 14.2 % (11.5-14.5); Red Blood Count 3.41 M/uL (4.20-5.40); White Blood Count 36.13 K/ul (4.8-10.8)
[2022-12-11 18:48] LABS: Basophils # (auto) 0.12 K/uL (0-0.2); Basophils % (auto) 0.3 %; Eosinophils # (auto) 0.55 K/uL (0-0.50); Eosinophils % (auto) 1.5 %; Immature Granulocytes # (auto) 0.53 K/uL (0.01-0.20); Immature Granulocytes % (auto) 1.5 %; Lymphocytes # (auto) 5.71 K/uL (1.2-3.4); Lymphocytes % (auto) 15.8 %; Monocytes # (auto) 2.42 K/uL (0.11-0.59); Monocytes % (auto) 6.7 %; Neutrophils % (auto) 74.2 %
--- NOTE | 2022-12-11 18:56 | Communication Note ---
Date of Service: December 11, 2022 At the time that I presented to evaluate the patient, she was unresponsive. She eventually was able to respond to painful stimuli placed for Narcan as well as Romazicon and Levophed. My attending provider was updated on the situation and presented to bedside immediately. He did consult critical care who presented as well. Care of patient transferred to critical care provider.
--- NOTE | 2022-12-11 19:06 | Critical Care Consultation ---
Date of Consultation December 11, 2022 Assessment & Plan (1) Postoperative hypovolemic shock: s/p angioplasty in the afternoon on 12/11, with complication of ?left thigh hematoma and rapid development of profound hypotension and decreased responsiveness - obtunded/unresponsive on exam, femoral pulses present but profoundly hypotension to 70s/40s despite several fluid boluses, initiation of vasopressors and several doses of Narcan. - suspect both hypovolemic/hemorrhagic shock due to left thigh hematoma, as well as distributive shock due to narcotic/sedative medications intra-operatively - s/p NSS 1L bolus, maintenance IVFs, and Levophed - s/p Narcan x3, Narcan gtt and Flumazenil ordered - pending administration - ordered CBC/CMP/Mg/hsTrop/ABG/lactate/ionized calcium/vbg as well as PT/PTT/INR and type/screen - hold Aspirin/Plavix due to concern for active bleed - s/p left axillary A-line for continuous vital sign management - s/p right subclavian central line as patient requiring pressors - CT A&P w/o to eval hematoma size - CXR to assure lines in the correct location - f/u above labs - transfuse <7 - cards on board (2) Hypotension: Profound hypotension, in context of above. - hold home anti-hypertensives, fluids/vasopressors as stated above (3) Acute encephalopathy: Obtunded and unresponsive to verbal/noxious stimuli --> in context of above. - close monitoring of mental/neurologic status (4) PAD (peripheral artery disease): S/p angioplasty as stated above. - Dr. Yee consulted - appreciate ongoing recs - held ASA/Plavix as stated above due to suspected active bleed (5) Laryngeal cancer: S/p tracheostomy 10 years ago, with chronic trach collar. - continue supplemental O2 as needed to maintain sats 88-92% (COPD) (6) COPD (chronic obstructive pulmonary disease): Chronic, without wheezes on exam or evidence for acute exacerbation. - continue home inhalers when able (7) Anxiety: Continue home meds when able (8) GERD (gastroesophageal reflux disease): Utilize Protonix 40mg IV BID for now (9) Hypothyroidism: Continue home Synthroid when able Plan FEN/GI: NPO while obtunded, IVFs/vasopressors DVT Prophylaxis: chemoppx contraindicated due to concern for active bleed Code Status: full code - attempted to contact patient's sister to explain situation and re-ascertain code status but no answer, left message to call hospital to discuss Disposition: ICU Supervising Physician Co-Signing Physician Notes Dr. Worley was resident physician during care of patient. I separately evaluated patient for mccabe portions of the history and the exam. I was present during the critical portion of medical decision making, and I discussed the case with the resident. I generally agree with the findings and plan. On able to obtain adequate blood pressure, severe peripheral vascular disease at baseline. Transferred to ICU for further monitoring as noninvasive blood pressure was reading 70 systolic. Emergently placed left axillary artery arterial line, blood pressure noted to be adequate and down titrated vasoactive medications. Patient also has poor vascular access and was requiring vasoactive medications for blood pressure so the decision was made to emergently place a central venous catheter. We placed a single lumen Jacc catheter for minimizing catheter size. Patient sent for CTA to rule out retroperitoneal hematoma. I believe the acute encephalopathy is likely metabolic related to medications and possible derangements during the angioplasty procedure. I discussed the case with cardiology at bedside. I have personally spent 45 minutes of critical care time in the direct management of this patient. This is a life/limb threatening event. This includes time spent evaluating patient, direct bedside care, chart review, mahendra cing orders, interpretation of diagnostic studies, discussion with consultants, patient, and/or family members regarding treatment decisions, as well as other required patient management activities. This time is exclusive of all separately billable procedures, and teaching time and separate from and in addition to any other critical care service time. History of Present Illness Attending Physician: Epi Yee MD History of Present Illness 72 y/o female s/p angioplasty in the afternoon on 12/11, with complication of ?left thigh hematoma and rapid development of profound hypotension and decreased responsiveness - obtunded/unresponsive on exam, femoral pulses present but profoundly hypotension to 70s/40s despite several fluid boluses, initiation of vasopressors and several doses of Narcan. Upgraded to ICU as patient hypotensive and requiring pressors. Allergies Allergy/AdvReac Type Severity Reaction Status Date / Time alendronate sodium Allergy Unknown ON [facility] Verified 12/04/22 10:03 [facility] penicillin V Allergy Unknown ON CENTRE Verified 12/04/22 10:03 [facility] sulfadiazine Allergy Unknown ON [facility] Verified 12/04/22 10:03 [facility] MED LIST Home Medications Medication Instructions Recorded Confirmed Type aspirin 81 mg chewable tablet 81 mg PO QAM 07/29/19 12/11/22 History simethicone 80 mg chewable tablet 80 mg PO QID 07/30/19 12/11/22 History (Gas Relief 80 (simethicone)) furosemide 20 mg tablet 20 mg PO QAM 12/31/19 12/11/22 History metoprolol tartrate 50 mg tablet 50 mg PO BID 12/31/19 12/11/22 History famotidine 20 mg tablet 20 mg PO BID 04/09/20 12/11/22 History ferrous sulfate 325 mg (65 mg 325 mg PO QAM 04/09/20 12/11/22 History iron) tablet pantoprazole 40 mg tablet,delayed 40 mg PO QAM 04/09/20 12/11/22 History release (Protonix) multivitamin 1 tab PO QAM 05/13/20 12/11/22 History budesonide 180 mcg/actuation 1 inh inhalation Q12H PRN 09/29/20 12/11/22 History breath activated powder inhaler Shortness Of Breath (Pulmicort Flexhaler) lasmiditan 100 mg tablet (Reyvow) 100 mg PO Q24H PRN migraines 09/29/20 12/11/22 History cyanocobalamin (vitamin B-12) 1,000 mcg PO QAM 01/20/21 12/11/22 History 1,000 mcg capsule buspirone 15 mg tablet 15 mg PO BID 04/21/21 12/11/22 History ipratropium 0.5 mg-albuterol 3 mg 3 ml inhalation Q4H PRN Shortness 04/21/21 12/11/22 History (2.5 mg base)/3 mL nebulization Of Breath soln amlodipine 2.5 mg tablet 2.5 mg PO QAM 08/02/21 12/11/22 History diphenhydramine HCl 12.5 mg/5 mL 50 mg PO TID 08/02/21 12/11/22 History oral elixir levothyroxine 75 mcg tablet 75 mcg PO QAM 08/02/21 12/11/22 History lorazepam 0.5 mg tablet 0.5 mg PO BID 08/02/21 12/11/22 History venlafaxine 75 mg tablet 75 mg PO BID 08/02/21 12/11/22 History acetaminophen 500 mg tablet 1,000 mg PO UD PRN Pain (Scale 09/30/21 12/11/22 History (Tylenol Extra Strength) Score 7-10) bismuth subsalicylate 262 mg/15 mL 524 mg PO Q6H PRN DIARRHEA/NAUSEA 09/30/21 12/11/22 History oral suspension (Pepto-Bismol) docosanol 10 % topical cream 1 applic topical 5XD PRN Cold Sores 09/30/21 12/11/22 History (Abreva) ondansetron HCl 4 mg tablet 4 mg PO Q8H PRN nausea/vomiting 09/30/21 12/11/22 History (Zofran) gabapentin 100 mg capsule 200 mg PO BID 07/14/22 12/11/22 History guaifenesin 100 mg/5 mL oral liquid 200 mg PO Q6H PRN Cough 07/14/22 12/11/22 History topiramate 50 mg tablet 50 mg PO BID 30 days #60 tabs 07/14/22 12/11/22 Rx Menthol-Ascorbic Acid Lozenge 1 flo PO Q4H PRN Sore Throat 07/20/22 12/11/22 History aluminum-mag hydroxide-simethicone 30 ml PO Q8H PRN Acid Reflux 07/20/22 12/11/22 History 225 mg-200 mg-25 mg/5 mL oral susp bisacodyl 10 mg rectal suppository 10 mg MI QPM PRN Constipation 07/20/22 12/11/22 History (Dulcolax (bisacodyl)) erenumab-aooe 140 mg/mL 140 mg subcut Q30D 07/20/22 12/11/22 History subcutaneous auto-injector magnesium hydroxide 800 mg/5 mL 30 mg PO UD PRN Constipation 07/20/22 12/11/22 History oral suspension peg 400-propylene glycol (PF) 0.4 1 drp ophthalmic (eye) Q8H PRN Dry 07/20/22 12/11/22 History %-0.3 % eye drops in a dropperette Eyes (Systane (PF)) sodium phosphates 19 gram-7 197 ml MI QAM PRN Constipation 07/20/22 12/11/22 H istory gram/118 mL enema (Fleet Enema) sucralfate 1 gram tablet 1 g PO BID 07/20/22 12/11/22 History Patient History Medical History Anemia Cancer Hx breast, lung and laryngeal cancer (larynx radiation, laryngectomy 2008) Chronic pain syndrome Chronic respiratory failure Constipation COPD (chronic obstructive pulmonary disease) Depression with anxiety Dysphagia Elevated hemidiaphragm GERD (gastroesophageal reflux disease) History of COVID-19 11/2020, pneumonia Hx MRSA infection Hx of chronic respiratory failure Hx of hypokalemia Hx of malignant neoplasm larynx and breast Hx of migraine headaches Hx of Raynaud's syndrome Hyperlipemia Hypertension Hypothyroidism Insomnia Muscle weakness Generalized On home oxygen therapy 2L via trach mask Osteoarthritis Tracheostomy in place 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 Family/Other Prostate cancer Sister , Passed age 64 of [place] No problems noted. Sister No problems noted. Sister No problems noted. Sister No problems noted. Brother No problems noted. Son , Passed as child in MVA No problems noted. Son , Passed as child in MVA No problems noted. Son No problems noted. Son No problems noted. Daughter No problems noted. 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 Pale. HEENT: Atraumatic, normocephalic. Trach collar in place with supplemental O2 flowing. Pulm: Symmetrical chest rise. No increase work of breathing. No respiratory distress. Abdominal: soft, non-tender, non-distended Skin: pale, left LE ulcerations visualized Results & Data Results & Data ([facility]) Vital Signs (Past 12 Hours) Vital Signs Temp Pulse Resp BP BP Pulse Ox O2 Del Method 12/11/22 16:19 100 H 16 98/53 L 12/11/22 15:40 96 H 16 157/82 H Trach Collar 12/11/22 15:25 109 H 16 144/89 H Trach Collar 12/11/22 15:10 98 H 16 112/72 Trach Collar 12/11/22 14:55 106 H 16 96/58 L Trach Collar 12/11/22 08:49 Trach Collar 12/11/22 08:49 36.8 C 91 H 20 160/136 H 95 Trach Collar O2 Flow Rate FiO2 12/11/22 16:19 12/11/22 15:40 6 12/11/22 15:25 6 12/11/22 15:10 6 12/11/22 14:55 6 12/11/22 08:49 12/11/22 08:49 30 Resident Activity Tracking Resident Involvement: Resident Care Provided Care Provided: Adult Hospital Medicine (1) Hypothyroidism Hypothyroidism type: unspecified Qualified Code(s): E03.9 - Hypothyroidism, unspecified (2) COPD (chronic obstructive pulmonary disease) COPD type: emphysema Emphysema type: unspecified Qualified Code(s): J43.9 - Emphysema, unspecified (3) GERD (gastroesophageal reflux disease) Esophagitis presence: esophagitis presence not specified Qualified Code(s): K21.9 - Gastro-esophageal reflux disease without esophagitis
[2022-12-11 19:07] LABS: HCO3 ABG 16 mmol/L (19-24); Oxygen Saturation ABG > 100.0 % (90-95); PCO2 ABG 32 mmHg (35-46); PO2 ABG 162 mmHg (80-95); pH ABG 7.31 (7.35-7.45)
[2022-12-11 19:31] LABS: Albumin Globulin Ratio 1.2 (0.9-2); Albumin Level 2.2 gm/dl (3.4-5.0); BUN Creatinine Ratio 25.4 (10-20); Bilirubin,Total 0.2 mg/dl (0.2-1.0); C Reactive Protein 1.73 mg/dl (0-0.5); Calcium 5.5 mg/dl (8.5-10.1); Creatinine Clr Calc Pharmacy 54.5 ml/min; Est GFR (African American) 106.9 ml/min; Est GFR (Non-African American) 92.2 ml/min; Globulin 1.9 gm/dl (2.5-4.0); Magnesium 1.2 mg/dl (1.7-2.4); Potassium 3.2 mmol/L (3.5-5.1); Total Protein 4.1 gm/dl (6.0-8.3); Troponin I High Sensitivity 5.5 pg/ml (0-14)
[2022-12-11 19:34] LABS: Hematocrit (blood only) 28.9 % (37.0-47.0); Hemoglobin 9.3 g/dl (12.0-16.0)
[2022-12-11 19:35] LABS: INR 1.3 (0.9-1.1); Partial Thromboplastin Ratio 1.7; Prothrombin Time 13.9 Seconds (9.0-12.0)
[2022-12-11] MEDS ORDERED: STAT IV STA (19:36)
[2022-12-11 19:38] LABS: Partial Thromboplastin Time 47.5 Seconds (21.0-31.0)
[2022-12-11] MEDS ORDERED: CALCIUM GLUCONATE 10% 1,000 MG in DEXTROSE 5% 50 ML IV ONE (19:45)
[2022-12-11 19:54] LABS: Allen Test POS (Pos)
[2022-12-11] MEDS: LACTATED RINGER'S 1,000 ML IV SCH (19:56)
--- NOTE | 2022-12-11 19:57 | XRay Report ---
SINGLE VIEW CHEST CLINICAL HISTORY: Central venous catheter placement. FINDINGS: An AP, portable, upright chest radiograph is compared to study dated 11/02/2022. Correlatio n is made with chest CT dated 10/18/2020. The examination is degraded by portable technique and patien t rotation. A right subclavian central venous catheter has been placed. The tip of the catheter proje cts over the right atrium. A left upper extremity venous catheter is in place. The tip of the cathete r projects over the left axilla. The cardiomediastinal silhouette is unremarkable noting atherosclero tic calcification of the thoracic aorta. Emphysema and chronic interstitial thickening is similar to previous. Foci of parenchymal scarring are seen throughout both lungs. There is volume loss in the ri ght lung with elevation of the right hemidiaphragm. No airspace consolidation or large pleural effusi on is identified. No pneumothorax is seen. The skeletal structures are osteopenic. The bony thorax is grossly intact. Numerous surgical clips project over the lower neck. Cholecystectomy clips are noted in the right upper quadrant. IMPRESSION: 1. Bilateral venous catheters have been placed as above. 2. No pneumothorax is seen post procedure. 3. Emphysema with no acute cardiopulmonary abnormality identified. ACT 112: Negative or not required by law. Electronically signed by: Kam Adames M.D. 12/11/2022 7:55 PM
[2022-12-11] MEDS: MoRPHine SULFATE 4 MG/ML 1 ML CARP\\VIAL IV PRN (20:18)
--- NOTE | 2022-12-11 20:31 | CT Scan Report ---
CT SCAN OF THE ABDOMEN AND PELVIS WITHOUT IV CONTRAST CLINICAL HISTORY: Recent groin access. Concern for retroperitoneal hemorrhage. COMPARISON STUDY: Abdominal CT dated 10/10/2020. TECHNIQUE: CT scan of the abdomen and pelvis is performed from the lung bases to the proximal femora. Images are reviewed in the axial, sagittal, and coronal planes. IV contrast was not administered for this examination. A dose lowering technique was utilized adhering to the principles of ALARA. The ex amination is degraded by motion artifact, as well as by streak artifact from the arms which could not be elevated above the abdomen. CT DOSE: 420.58 mGy.cm FINDINGS: Lung bases: The heart is normal in size and without pericardial effusion. The coronary arteries are d ensely calcified. Emphysematous change is noted. There is bibasilar scarring/atelectasis. No airspace consolidation or pleural effusion is identified. Liver: The unenhanced liver is normal in size, contour, and attenuation. There is no intrahepatic diane iary ductal dilatation. Gallbladder: Surgically absent noting clips in the gallbladder fossa. Spleen: Normal in size and attenuation. Pancreas: Unremarkable. Adrenal glands: Unremarkable. Kidneys: The unenhanced kidneys are atrophic and without hydronephrosis. Excreted IV contrast fills t he renal collecting systems and ureters. This degrades assessment for renal calculi. A 1.6 cm cyst is noted on the right. There is retained cortical contrast. Abdominal vasculature: The abdominal aorta is normal in course and caliber noting advanced atheroscle rotic calcification. Bowel: There is rectosigmoid fecal impaction and mild constipation. No bowel obstruction is seen. The cecum is located in the left upper quadrant. The appendix is well-visualized and normal. Duodenal d iverticula are noted. Peritoneum/retroperitoneum: No retroperitoneal hematoma is identified. There is no intraperitoneal fr ee air or abdominal ascites. There is evidence of previous ventral hernia repair. There is laxity of the ventral abdominal wall with protrusion of bowel loops. Lymphadenopathy: None. Pelvic viscera: The bladder is largely decompressed around a Freedman catheter. Excreted IV contrast margaret ls the bladder lumen. The uterus and adnexa are normal as visualized. Contrast within the vagina is l ikely related to urine contamination. Skeletal structures: The skeletal structures are osteopenic. No lytic or blastic lesions are seen. Th ere is mild lumbosacral spondylosis. Soft tissues: There is asymmetric soft tissue edema in the left thigh. Intramuscular hemorrhage is se en within the left rectus femoris with surrounding hemorrhage. No large/organized hematoma is clearly seen. Intramuscular hemorrhage is also seen within the left iliacus muscle. IMPRESSION: 1. There is no retroperitoneal hematoma as clinically queried. 2. Asymmetric soft tissue edema is seen in the left thigh. 3. There is intramuscular hematoma within the left rectus femoris muscle with surrounding hemorrhage. 4. Intramuscular hemorrhage is also seen within the left iliacus. 5. Rectosigmoid fecal impaction. 6. Additional findings as above. ACT 112: Negative or not required by law. Electronically signed by: Kam Adames M.D. 12/11/2022 8:28 PM
[2022-12-11] MEDS: MAGNESIUM SULFATE / D5W 1 GM/100 ML BAG IV SCH ×2 (20:36→21:56)
[2022-12-11] MEDS: POTASSIUM CHLORIDE / WTR 20 MEQ/100 ML PLCT IV SCH ×2 (20:37→22:30)
[2022-12-11] MEDS: PANTOprazole 40 MG in SYRINGE 0 ML IV SCH (20:45)
[2022-12-11] MEDS: GABAPENTIN 100 MG CAP PO SCH (20:48)
[2022-12-11] MEDS: VENLAFAXINE HCL 37.5 MG TAB PO SCH (20:48)
[2022-12-11] MEDS: busPIRone 15 MG TAB PO SCH (20:49)
[2022-12-11] MEDS: FAMOTIDINE 20 MG TAB PO SCH (20:49)
[2022-12-11 20:50] LABS: Partial Thromboplastin Ratio 1.5
[2022-12-11] MEDS ORDERED: ACETAMINOPHEN 1,000 MG/100 ML VIAL IV PRN (20:59)
[2022-12-11] MEDS ORDERED: METOPROLOL TARTRATE 50 MG TAB PO SCH (21:00)
[2022-12-11] MEDS ORDERED: TOPIRAMATE 50 MG TAB PO SCH (21:00)
[2022-12-11] MEDS ORDERED: SUCRALFATE 1 GM TAB PO SCH (21:00)
[2022-12-12] MEDS: MAGNESIUM SULFATE / D5W 1 GM/100 ML BAG IV SCH ×2 (00:32→02:20)
[2022-12-12] MEDS: POTASSIUM CHLORIDE / WTR 20 MEQ/100 ML PLCT IV SCH (00:32)
[2022-12-12 01:12] LABS: Hematocrit (blood only) 24.4 % (37.0-47.0); Hemoglobin 7.9 g/dl (12.0-16.0)
[2022-12-12] MEDS: MoRPHine SULFATE 4 MG/ML 1 ML CARP\\VIAL IV PRN ×4 (03:23→21:00)
[2022-12-12] MEDS: LACTATED RINGER'S 1,000 ML IV SCH (03:23)
[2022-12-12] MEDS: ACETAMINOPHEN 500 MG TAB PO PRN ×2 (05:24→12:58)
[2022-12-12 05:36] LABS: BUN Creatinine Ratio 21.1 (10-20); Blood Urea Nitrogen 19 mg/dl (6-23); Calcium 8.1 mg/dl (8.5-10.1); Carbon Dioxide 23 mmol/L (21-32); Chloride 107 mmol/L (98-107); Creatinine Clr Calc Pharmacy 35.7 ml/min; Est GFR (African American) 74.6 ml/min; Est GFR (Non-African American) 64.3 ml/min; Glucose 124 mg/dl (70-99(Fasting)); Phosphorus 3.6 mg/dl (2.5-4.9)
[2022-12-12] MEDS: LEVOTHYROXINE SODIUM 75 MCG TABLET PO SCH (06:06)
[2022-12-12 06:11] LABS: Hemoglobin 7.7 g/dl (12.0-16.0); Mean Corpuscular Hemoglobin 28.9 pg (25.0-34.0); Mean Corpuscular Hgb Conc 32.1 g/dL (32.0-36.0); Mean Corpuscular Volume 90.2 fL (80.0-100.0); Mean Platelet Volume 10.3 fL (9.4-12.4); Platelet Count 293 K/uL (130-400); RDW Coefficient of Variation 13.9 % (11.5-14.5); RDW Standard Deviation 45.7 fL (36.4-46.3); Red Blood Count 2.66 M/uL (4.20-5.40); White Blood Count 18.67 K/ul (4.8-10.8)
[2022-12-12 06:22] LABS: Magnesium 3.2 mg/dl (1.7-2.4)
[2022-12-12] MEDS: busPIRone 15 MG TAB PO SCH ×2 (08:19→21:01)
[2022-12-12] MEDS: CYANOCOBALAMIN (B-12) 500 MCG TABLET PO SCH (08:20)
[2022-12-12] MEDS: FAMOTIDINE 20 MG TAB PO SCH ×2 (08:20→21:01)
[2022-12-12] MEDS: GABAPENTIN 100 MG CAP PO SCH (08:20)
[2022-12-12] MEDS: VENLAFAXINE HCL 37.5 MG TAB PO SCH ×2 (08:21→21:03)
[2022-12-12] MEDS: PANTOprazole 40 MG in SYRINGE 0 ML IV SCH (08:22)
--- NOTE | 2022-12-12 08:22 | Procedure Note ---
Procedure Note Date of Service December 11, 2022 Note Procedure date: Noted above Procedure: Left axillary artery cannulation Pre-procedure Diagnosis: Need for invasive monitoring, hypotension, unresponsiveness Post-procedure Diagnosis: same as above Prior to Procedure: Informed Consent: Emergent consent implied Attending Staff: Madison Fairbanks DO Skin Prep: Chlorhexidine Anesthesia: 3 mL 1% lidocaine without epinephrine The identity of the patient was confirmed and a bedside time out was performed. Description of Procedure: After sterile prep and sterile drape utilizing standard sterile technique the superficial skin of the left axillary artery was anesthetized. The target artery was identified via dynamic ultrasound guidance and entered with a 20-gauge arrow Angiocath. Pulsatile bright red blood return was noted. Via Seldinger technique the self-contained guidewire was advanced and the Angiocath advanced over the guidewire. The guidewire was removed and brisk arterial blood return was noted. The pressure monitor was connected, and the arterial line was secured via commercial securement device. A sterile dressing was then applied. Complications: None Estimated blood loss: Trace Patient tolerated the procedure well. Coding CPT Codes Tubes, Drains, and Vasc Access - Tubes, Drains, and Vasc Access: [id number] Insertion Catheter, Artery ([id number]) [facility] [place] Procedure Codes (Charges) Tubes, Drains, and Vasc Access Procedure 1: Tubes, Drains, and Vasc Access: [id number] Insertion Catheter, Artery
--- NOTE | 2022-12-12 08:30 | Procedure Note ---
Procedure Note Date of Service December 11, 2022 Note Procedure date: Noted above Procedure: Central venous access Pre-procedure indication: Need for vasoactive medication administration, hypotension Post-procedure Diagnosis: same as above Prior to Procedure: Informed Consent: Emergent consent implied Attending Staff: Madison Fairbanks DO Resident/APC: Not applicable Skin Prep: Chlorhexidine Anesthesia: 4 mL 1% lidocaine without epinephrine The identity of the patient was confirmed and a bedside time out was performed. Description of Procedure: After sterile prep and sterile drape utilizing standard sterile technique the superficial skin of the right subclavian area was anesthetized. The target vessel was identified and entered with an 18-gauge needle. Dark venous blood return was noted. A guidewire was inserted through the needle and into the vessel. The needle was withdrawn and a skin yasmine was made. A tissue dilator was advanced via Seldinger technique and removed. A single lumen catheter was inserted via Seldinger technique and the guidewire removed. All ports sonny and flushed easily. A Biopatch was placed, and the catheter was secured via commercial securement device. A sterile dressing was then applied. Complications: None Post procedure chest x-ray was reviewed Coding CPT Codes Tubes, Drains, and Vasc Access - Tubes, Drains, and Vasc Access: [id number] Insertion Of Non-tunneled Catheter Age 6 Yrs> ([id number]) [facility] [place] Procedure Codes (Charges) Tubes, Drains, and Vasc Access Procedure 1: Tubes, Drains, and Vasc Access: [id number] Insertion Of Non-tunneled Catheter Age 6 Yrs>
--- NOTE | 2022-12-12 08:33 | Billing Data ---
Date of Service December 11, 2022 Coding Level of Care Code Critical Care mins
[2022-12-12] MEDS ORDERED: SODIUM CHLORIDE 0.9% 250 ML IV PRN (08:38)
--- NOTE | 2022-12-12 08:44 | Critical Care Progress Note ---
Date of Service December 12, 2022 Assessment & Plan (1) Postoperative hypovolemic shock: Plan: Acute blood loss anemia -Continue to trend H&H today -Patient tachycardic we will give 1 unit packed red blood cells -Discontinue additional IV fluids -Close clinical monitoring of thigh hematoma -Okay to restart aspirin and Plavix (2) Hypotension: Plan: Resolved (3) Acute encephalopathy: Plan: Resolved (4) PAD (peripheral artery disease): Plan: S/p angioplasty as stated above. 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 - continue supplemental O2 as needed to maintain sats 88-92% (COPD) (6) COPD (chronic obstructive pulmonary disease): Plan: Chronic, without wheezes on exam or evidence for acute exacerbation. - continue home inhalers when able (7) Anxiety: Plan: Continue home meds when able (8) GERD (gastroesophageal reflux disease): Plan: Discontinue and can transition to home Pepcid (9) Hypothyroidism: Plan: Continue home Synthroid Plan DVT Prophylaxis: chemoppx contraindicated due to concern for active bleed, mechanical prophylaxis contraindicated due to severe peripheral vascular disease and active wounds Code Status: full code - Disposition: ICU -Patient stable for downgrade out of ICU. Admission and Anticipated Discharge Date Admission Date: December 11, 2022 Subjective Patient awake alert, mouthing responses. Able to eat and drink. Weaned off vasoactive's overnight. Physical Exam Physical Exam: General: Alert. nontoxic, frail in appearance. Skin: Warm, dry, pale Head: Atraumatic Ears, nose, mouth and throat: airway patent, stoma in the midline of neck, tract well-healed Cardiovascular: Normal peripheral perfusion Respiratory: no respiratory distress Gastrointestinal: Non distended Musculoskeletal: Wounds on lower extremity, appear chronic in nature, ecchymoses in left groin Results & Data Results & Data ([facility]) Vital Signs (Past 12 Hours) Vital Signs Pulse Pulse Resp BP Pulse Ox O2 Del Method O2 Flow Rate 12/12/22 08:31 114 H 14 100 Trach Collar 12 12/12/22 06:30 110 H 27 H 100 12/12/22 06:00 116 H 14 100 12/12/22 05:30 117 H 21 100 12/12/22 05:00 108 H 17 100 01/31/23 04:30 109 H 21 100 12/12/22 04:00 104 H 14 100 12/12/22 03:30 105 H 37 H 100 12/12/22 03:00 101 H 23 12/12/22 02:30 95 H 19 100 12/12/22 04:00 105 H 158/66 H 12/12/22 00:00 115 H 12/12/22 02:00 99 H 29 H 86 L 12/12/22 01:30 98 H 36 H 100 12/12/22 00:50 99 H 20 90 12/12/22 00:40 100 H 23 99 12/12/22 00:30 110 H 30 H 97 12/12/22 00:20 112 H 22 98 12/12/22 00:10 113 H 28 H 96 12/12/22 00:00 114 H 22 94 12/11/22 23:50 115 H 26 H 97 12/11/22 23:40 115 H 26 H 99 12/11/22 23:30 116 H 27 H 100 12/12/22 00:00 114 H 115/54 L 12/12/22 01:02 98 H 135/61 12/11/22 23:20 116 H 26 H 100 12/11/22 23:10 114 H 24 100 12/11/22 23:00 114 H 24 100 12/11/22 22:50 112 H 22 100 12/11/22 22:40 111 H 19 100 12/11/22 22:30 110 H 26 H 97 12/11/22 22:20 105 H 19 99 12/11/22 22:10 106 H 24 96 12/11/22 22:00 105 H 29 H 100 12/11/22 21:50 106 H 17 100 12/11/22 21:40 106 H 19 100 12/11/22 21:30 106 H 21 100 12/11/22 21:20 105 H 15 100 12/11/22 21:10 103 H 26 H 100 12/11/22 21:00 106 H 14 100 12/11/22 20:50 101 H 19 100 12/11/22 20:40 94 H 29 H 94 FiO2 12/12/22 08:31 40 12/12/22 06:30 12/12/22 06:00 12/12/22 05:30 12/12/22 05:00 12/12/22 04:30 12/12/22 04:00 12/12/22 03:30 12/12/22 03:00 12/12/22 02:30 12/12/22 04:00 12/12/22 00:00 12/12/22 02:00 12/12/22 01:30 12/12/22 00:50 12/12/22 00:40 12/12/22 00:30 12/12/22 00:20 12/12/22 00:10 12/12/22 00:00 12/11/22 23:50 12/11/22 23:40 12/11/22 23:30 12/12/22 00:00 12/12/22 01:02 12/11/22 23:20 12/11/22 23:10 12/11/22 23:00 12/11/22 22:50 12/11/22 22:40 12/11/22 22:30 12/11/22 22:20 12/11/22 22:10 12/11/22 22:00 12/11/22 21:50 12/11/22 21:40 12/11/22 21:30 12/11/22 21:20 12/11/22 21:10 12/11/22 21:00 12/11/22 20:50 12/11/22 20:40 Critical Care Results & Data Vital Signs (Past 12 Hours) Vital Signs Pulse Pulse Resp BP Pulse Ox O2 Del Method O2 Flow Rate 12/12/22 08:31 114 H 14 100 Trach Collar 12 12/12/22 06:30 110 H 27 H 100 12/12/22 06:00 116 H 14 100 12/12/22 05:30 117 H 21 100 12/12/22 05:00 108 H 17 100 12/12/22 04:30 109 H 21 100 12/12/22 04:00 104 H 14 100 12/12/22 03:30 105 H 37 H 100 12/12/22 03:00 101 H 23 12/12/22 02:30 95 H 19 100 12/12/22 04:00 105 H 158/66 H 12/12/22 00:00 115 H 12/12/22 02:00 99 H 29 H 86 L 12/12/22 01:30 98 H 36 H 100 12/12/22 00:50 99 H 20 90 12/12/22 00:40 100 H 23 99 12/12/22 00:30 110 H 30 H 97 12/12/22 00:20 112 H 22 98 12/12/22 00:10 113 H 28 H 96 12/12/22 00:00 114 H 22 94 12/11/22 23:50 115 H 26 H 97 12/11/22 23:40 115 H 26 H 99 12/11/22 23:30 116 H 27 H 100 12/12/22 00:00 114 H 115/54 L 12/12/22 01:02 98 H 135/61 12/11/22 23:20 116 H 26 H 100 12/11/22 23:10 114 H 24 100 12/11/22 23:00 114 H 24 100 12/11/22 22:50 112 H 22 100 12/11/22 22:40 111 H 19 100 12/11/22 22:30 110 H 26 H 97 12/11/22 22:20 105 H 19 99 12/11/22 22:10 106 H 24 96 12/11/22 22:00 105 H 29 H 100 12/11/22 21:50 106 H 17 100 12/11/22 21:40 106 H 19 100 12/11/22 21:30 106 H 21 100 12/11/22 21:20 105 H 15 100 12/11/22 21:10 103 H 26 H 100 12/11/22 21:00 106 H 14 100 12/11/22 20:50 101 H 19 100 12/11/22 20:40 94 H 29 H 94 FiO2 12/12/22 08:31 40 12/12/22 06:30 12/12/22 06:00 12/12/22 05:30 12/12/22 05:00 12/12/22 04:30 12/12/22 04:00 12/12/22 03:30 12/12/22 03:00 12/12/22 02:30 12/12/22 04:00 12/12/22 00:00 12/12/22 02:00 12/12/22 01:30 12/12/22 00:50 12/12/22 00:40 12/12/22 00:30 12/12/22 00:20 12/12/22 00:10 12/12/22 00:00 12/11/22 23:50 12/11/22 23:40 12/11/22 23:30 12/12/22 00:00 12/12/22 01:02 12/11/22 23:20 12/11/22 23:10 12/11/22 23:00 12/11/22 22:50 12/11/22 22:40 12/11/22 22:30 12/11/22 22:20 12/11/22 22:10 12/11/22 22:00 12/11/22 21:50 12/11/22 21:40 12/11/22 21:30 12/11/22 21:20 12/11/22 21:10 12/11/22 21:00 12/11/22 20:50 12/11/22 20:40 Lab & Micro Results (Past 24 Hours) RBC 2.66 M/uL (4.20-5.40) L 12/12/22 WBC 18.67 K/ul (4.8-10.8) H 12/12/22 Hgb 7.7 g/dl (12.0-16.0) L 12/12/22 Hct 24.0 % (37.0-47.0) L 12/12/22 MCV 90.2 fL (80.0-100.0) 12/12/22 MCH 28.9 pg (25.0-34.0) 12/12/22 MCHC 32.1 g/dL (32.0-36.0) 12/12/22 RDW Standard Deviation 45.7 fL (36.4-46.3) 12/12/22 RDW Coefficient of Variation 13.9 % (11.5-14.5) 12/12/22 Plt Count 293 K/uL (130-400) 12/12/22 MPV 10.3 fL (9.4-12.4) 12/12/22 Neutrophils (%) (Auto) 74.2 % 12/11/22 Lymphocytes (%) (Auto) 15.8 % 12/11/22 Monocytes # (Auto) 2.42 K/uL (0.11-0.59) H 12/11/22 Eosinophils # (Auto) 0.55 K/uL (0-0.50) H 12/11/22 Immature Granulocyte % (Auto) 1.5 % 12/11/22 Neutrophils # (Auto) 26.80 K/uL (1.40-6.50) H 12/11/22 Lymphocytes # (Auto) 5.71 K/uL (1.2-3.4) H 12/11/22 Monocytes # (Auto) 2.42 K/uL (0.11-0.59) H 12/11/22 Eosinophils # (Auto) 0.55 K/uL (0-0.50) H 12/11/22 Basophils # (Auto) 0.12 K/uL (0-0.2) 12/11/22 Immature Granulocyte # (Auto) 0.53 K/uL (0.01-0.20) H 12/11 Na 136 mmol/L (136-145) 12/12/22 K 6.0 mmol/L (3.5-5.1) H 12/12/22 Cl 107 mmol/L (98-107) 12/12/22 CO2 23 mmol/L (21-32) 12/12/22 Anion Gap TNP 12/12/22 BUN 19 mg/dl (6-23) 12/12/22 Creatinine 0.90 mg/dl (0.6-1.2) 12/12/22 Estimated GFR ( Amer) 74.6 ml/min 12/12/22 Estimated GFR (Non-Af Amer) 64.3 ml/min 12/12/22 BUN/Creatinine Ratio 21.1 (10-20) H 12/12/22 Glu 124 mg/dl (70-99(Fasting)) H 12/12/22 Ca 8.1 mg/dl (8.5-10.1) L 12/12/22 Phosphorus Level 3.6 mg/dl (2.5-4.9) 12/12/22 Total Bilirubin 0.2 mg/dl (0.2-1.0) 12/11/22 AST 8 U/L (13-39) L 12/11/22 ALT 4 U/L (7-52) L 12/11/22 Alkaline Phosphatase 50 U/L (34-104) 12/11/22 TP 4.1 gm/dl (6.0-8.3) L 12/11/22 Albumin 2.2 gm/dl (3.4-5.0) L 12/11/22 Globulin 1.9 gm/dl (2.5-4.0) L 12/11/22 Albumin/Globulin Ratio 1.2 (0.9-2) 12/11/22 Mg 3.2 mg/dl (1.7-2.4) H 12/12/22 05:52 Calcium Level 8.1 mg/dl (8.5-10.1) L 12/12/22 04:48 Ionized Calcium 1.13 mmol/L (1.12-1.32) 12/11/22 19:11 Prothromb Time International Ratio 1.3 (0.9-1.1) H 12/11/22 18 :25 Arterial Blood pH 7.31 (7.35-7.45) L 12/11/22 18:25 Arterial Blood Partial Pressure CO2 32 mmHg (35-46) L 12/11/22 18:25 Arterial Blood Partial Pressure O2 162 mmHg (80-95) H 12/11/22 18:25 Arterial Blood HCO3 16 mmol/L (19-24) L 12/11/22 18:25 Arterial Blood Base Excess -9.0 mEq/L (-9-1.8) 12/11/22 18:25 Arterial Blood Oxygen Saturation > 100.0 % (90-95) H 12/11/22 1 8:25 Blood Gas Oxygen Given 6 L 12/11/22 18:25 Tommie Test POS (Pos) 12/11/22 18:25 Diagnostic Findings (Past 24 Hours) Abdomen/Pelvis CT 12/11/22 18:51 CT SCAN OF THE ABDOMEN AND PELVIS WITHOUT IV CONTRAST CLINICAL HISTORY: Recent groin access. Concern for retroperitoneal hemorrhage. COMPARISON STUDY: Abdominal CT dated 10/10/2020. TECHNIQUE: CT scan of the abdomen and pelvis is performed from the lung bases to the proximal femora. Images are reviewed in the axial, sagittal, and coronal planes. IV contrast was not administered for this examination. A dose lowering technique was utilized adhering to the principles of ALARA. The examination is degraded by motion artifact, as well as by streak artifact from the arms which could not be elevated above the abdomen. CT DOSE: 420.58 mGy.cm FINDINGS: Lung bases: The heart is normal in size and without pericardial effusion. The coronary arteries are densely calcified. Emphysematous change is noted. There is bibasilar scarring/atelectasis. No airspace consolidation or pleural effusion is identified. Liver: The unenhanced liver is normal in size, contour, and attenuation. There is no intrahepatic biliary ductal dilatation. Gallbladder: Surgically absent noting clips in the gallbladder fossa. Spleen: Normal in size and attenuation. Pancreas: Unremarkable. Adrenal glands: Unremarkable. Kidneys: The unenhanced kidneys are atrophic and without hydronephrosis. Excreted IV contrast fills the renal collecting systems and ureters. This degrades assessment for renal calculi. A 1.6 cm cyst is noted on the right. There is retained cortical contrast. Abdominal vasculature: The abdominal aorta is normal in course and caliber noting advanced atherosclerotic calcification. Bowel: There is rectosigmoid fecal impaction and mild constipation. No bowel obstruction is seen. The cecum is located in the left upper quadrant. The appendix is well-visualized and normal. Duodenal diverticula are noted. Peritoneum/retroperitoneum: No retroperitoneal hematoma is identified. There is no intraperitoneal free air or abdominal ascites. There is evidence of previous ventral hernia repair. There is laxity of the ventral abdominal wall with protrusion of bowel loops. Lymphadenopathy: None. Pelvic viscera: The bladder is largely decompressed around a Freedman catheter. Excreted IV contrast fills the bladder lumen. The uterus and adnexa are normal as visualized. Contrast within the vagina is likely related to urine contamination. Skeletal structures: The skeletal structures are osteopenic. No lytic or blastic lesions are seen. There is mild lumbosacral spondylosis. Soft tissues: There is asymmetric soft tissue edema in the left thigh. Intramuscular hemorrhage is seen within the left rectus femoris with surrounding hemorrhage. No large/organized hematoma is clearly seen. Intramuscular hemorrhage is also seen within the left iliacus muscle. IMPRESSION: 1. There is no retroperitoneal hematoma as clinically queried. 2. Asymmetric soft tissue edema is seen in the left thigh. 3. There is intramuscular hematoma within the left rectus femoris muscle with surrounding hemorrhage. 4. Intramuscular hemorrhage is also seen within the left iliacus. 5. Rectosigmoid fecal impaction. 6. Additional findings as above. ACT 112: Negative or not required by law. Electronically signed by: Kam Adames M.D. 12/11/2022 8:28 PM Chest X-Ray 12/11/22 18:51 SINGLE VIEW CHEST CLINICAL HISTORY: Central venous catheter placement. FINDINGS: An AP, portable, upright chest radiograph is compared to study dated 11/02/2022. Correlation is made with chest CT dated 10/18/2020. The examination is degraded by portable technique and patient rotation. A right subclavian central venous catheter has been placed. The tip of the catheter projects over the right atrium. A left upper extremity venous catheter is in place. The tip of the catheter projects over the left axilla. The cardiomediastinal silhouette is unremarkable noting atherosclerotic calcification of the thoracic aorta. Emphysema and chronic interstitial thickening is similar to previous. Foci of parenchymal scarring are seen throughout both lungs. There is volume loss in the right lung with elevation of the right hemidiaphragm. No airspace consolidation or large pleural effusion is identified. No pneumothorax is seen. The skeletal structures are osteopenic. The bony thorax is grossly intact. Numerous surgical clips project over the lower neck. Cholecystectomy clips are noted in the right upper quadrant. IMPRESSION: 1. Bilateral venous catheters have been placed as above. 2. No pneumothorax is seen post procedure. 3. Emphysema with no acute cardiopulmonary abnormality identified. ACT 112: Negative or not required by law. Electronically signed by: Kam Adames M.D. 12/11/2022 7:55 PM I & O Totals 24 Hours 12/11/22 12/12/22 12/13/22 06:59 06:59 06:59 Intake Total 3009.670 / 3009.670 Output Total 500 / 500 Balance 2509.670 / 2509.670 Cumulative 12/05/22 13:47 thru 12/12/22 05:48 Intake Total 3009.670 Output Total 500 Balance 2509.670 RT Ventilator Mngmt (Last Documented) Ventilator Ordered Settings Respiratory Rate 14 12/12/22 08:31 Fraction of Inspired Oxygen 40 12/12/22 08:31 Ventilator - PT Measurements Respiratory Rate 14 Coding Level of Care Code 01766 SUB INP/OBS CARE 3/50MIN Diagnoses Postoperative hypovolemic shock T81.19XA Encounter type: initial encounter Hypotension I95.9 Acute encephalopathy G93.40 PAD (peripheral artery disease) I73.9 Laryngeal cancer C32.9 COPD (chronic obstructive pulmonary disease) J43.9 COPD type: emphysema Emphysema type: unspecified Anxiety F41.9 GERD (gastroesophageal reflux disease) K21.9 Esophagitis presence: esophagitis presence not specified Hypothyroidism E03.9 Hypothyroidism type: unspecified (1) Postoperative hypovolemic shock Encounter type: initial encounter Qualified Code(s): T81.19XA - Other postprocedural shock, initial encounter (2) Hypothyroidism Hypothyroidism type: unspecified Qualified Code(s): E03.9 - Hypothyroidism, unspecified (3) COPD (chronic obstructive pulmonary disease) COPD type: emphysema Emphysema type: unspecified Qualified Code(s): J43.9 - Emphysema, unspecified (4) GERD (gastroesophageal reflux disease) Esophagitis presence: esophagitis presence not specified Qualified Code(s): K21.9 - Gastro-esophageal reflux disease without esophagitis
[2022-12-12] MEDS ORDERED: FUROSEMIDE 20 MG TAB PO SCH (09:00)
[2022-12-12] MEDS ORDERED: PANTOprazole 40 MG TAB PO SCH (09:00)
[2022-12-12] MEDS ORDERED: amLODIPine BESYLATE 5 MG TAB PO SCH (09:00)
[2022-12-12] MEDS ORDERED: FERROUS SULFATE 325 MG TAB PO SCH (09:00)
[2022-12-12] MEDS ORDERED: MULTIVITAMIN TAB PO SCH (09:00)
[2022-12-12] MEDS: ASPIRIN 81 MG ECTAB PO SCH (09:23)
[2022-12-12] MEDS: CLOPIDOGREL BISULFATE 75 MG TAB PO SCH (09:24)
[2022-12-12] MEDS: TOPIRAMATE 50 MG TAB PO SCH (11:16)
--- NOTE | 2022-12-12 11:44 | Vascular Medicine Consultation ---
Date of Consultation December 12, 2022 Assessment & Plan (1) PAD (peripheral artery disease): Left foot critical limb ischemia. Post left SENIOR JAVA UI DEVELOPER angioplasty History of Raynaud's 2. Post procedure shock 3. Acute blood loss anemia/left thigh hematoma 4. 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 Chronic pain Patient is recovered following post operative shock yesterday likely secondary to acute blood loss anemia, excess sedation and topical nitrates. Hypertensive now off pressors. Mental status today has returned back to baseline. Left foot warmer but still with non-dopplerable pulses following SENIOR JAVA UI DEVELOPER intervention. Continued supportive care in ICU today. Agree with planned transfusion. Serial H&H. We will continue to hold clopidogrel/ASA today. Hopefully start tomorrow. Long-term unclear if intervention yesterday will be sufficient to heal patient's ulcers/ischemic rest pain. Still has diffuse SFA/tibial/pedal vessel disease. For now recommend avoiding additional intervention due to frailty, vascular access issues. Continue wound care. Discussed case with family and Dr. Black at [facility]. Likely would benefit from pain management consult when stable, while admitted. Resume low-dose amlodipine, topical nitrates as BP allows for Raynaud's. Appreciate ICU team and hospital medicine care. History of Present Illness Attending Physician: Epi Yee MD History of Present Illness Ms. Maria is a 72-year-old woman with PAD/critical limb ischemia post endovascular mention with angioplasty to left [employer]IOR JAVA UI DEVELOPER now admitted to ICU in the setting of hypotension, decreased responsiveness. She has a history of laryngeal cancer post laryngectomy [address] Prior smoker, smoked 3 PPD, quit in 2008. Other medical issues include COPD, hypertension, migraines, anemia, anxiety/depression and GERD/esophageal dysphagia. Vascular history history of Raynaud's disease with reported prior ulcerations to her toes. correction resident at [facility]. Has been dealing with left lower extremity wounds, persistent left foot pain for more than 1 month. Outside ultrasound suggested severe SENIOR JAVA UI DEVELOPER disease with monophasic waveforms throughout remainder of distal vessels. CLINICAL RESOURCE DIRECTOR not visualized left LACHELLE 0.5. Yesterday underwent bilateral lower extremity angiography. Was found to have an occluded right common iliac artery. Left leg with 99% mid SENIOR JAVA UI DEVELOPER stenosis and severe diffuse SFA disease with sluggish two-vessel runoff to the foot and severe pedal disease. Difficult access but eventually able to complete angioplasty to SENIOR JAVA UI DEVELOPER via right radial artery. Attempt made to intervene on SENIOR JAVA UI DEVELOPER retrograde from left SFA but unable to pass sheath and post procedure course complicated by left thigh hematoma. Post procedure transferred to the floor where became increasingly unresponsive, hypotensive requiring IV fluids, multiple rounds of naloxone for transfer to ICU where started on norepinephrine. Today patient off pressors with systolic pressures in the 160s. Mental status back to baseline. Still with pain in left thigh, left foot. Pulses in left foot still nondopplerable. Hemoglobin down from 12 on admission to 7.7. Allergies Allergy/AdvReac Type Severity Reaction Status Date / Time alendronate sodium Allergy Unknown ON CENTRE Verified 12/04/22 10:03 CREST MED LIST penicillin V Allergy Unknown ON CENTRE Verified 12/04/22 10:03 CREST MED LIST sulfadiazine Allergy Unknown ON CENTRE Verified 12/04/22 10:03 CREST MED LIST Home Medications Medication Instructions Recorded Confirmed Type aspirin 81 mg chewable tablet 81 mg PO QAM 07/29/19 12/11/22 History simethicone 80 mg chewable tablet 80 mg PO QID 07/30/19 12/11/22 History (Gas Relief 80 (simethicone)) furosemide 20 mg tablet 20 mg PO QAM 12/31/19 12/11/22 History metoprolol tartrate 50 mg tablet 50 mg PO BID 12/31/19 12/11/22 History famotidine 20 mg tablet 20 mg PO BID 04/09/20 12/11/22 History ferrous sulfate 325 mg (65 mg 325 mg PO QAM 04/09/20 12/11/22 History iron) tablet pantoprazole 40 mg tablet,delayed 40 mg PO QAM 04/09/20 12/11/22 History release (Protonix) multivitamin 1 tab PO QAM 05/13/20 12/11/22 History budesonide 180 mcg/actuation 1 inh inhalation Q12H PRN 09/29/20 12/11/22 History breath activated powder inhaler Shortness Of Breath (Pulmicort Flexhaler) lasmiditan 100 mg tablet (Reyvow) 100 mg PO Q24H PRN migraines 09/29/20 12/11/22 History cyanocobalamin (vitamin B-12) 1,000 mcg PO QAM 01/20/21 12/11/22 History 1,000 mcg capsule buspirone 15 mg tablet 15 mg PO BID 04/21/21 12/11/22 History ipratropium 0.5 mg-albuterol 3 mg 3 ml inhalation Q4H PRN Shortness 04/21/21 12/11/22 History (2.5 mg base)/3 mL nebulization Of Breath soln amlodipine 2.5 mg tablet 2.5 mg PO QAM 08/02/21 12/11/22 History diphenhydramine HCl 12.5 mg/5 mL 50 mg PO TID 08/02/21 12/11/22 History oral elixir levothyroxine 75 mcg tablet 75 mcg PO QAM 08/02/21 12/11/22 History lorazepam 0.5 mg tablet 0.5 mg PO BID 08/02/21 12/11/22 History venlafaxine 75 mg tablet 75 mg PO BID 08/02/21 12/11/22 History acetaminophen 500 mg tablet 1,000 mg PO UD PRN Pain (Scale 09/30/21 12/11/22 History (Tylenol Extra Strength) Score 7-10) bismuth subsalicylate 262 mg/15 mL 524 mg PO Q6H PRN DIARRHEA/NAUSEA 09/30/21 12/11/22 History oral suspension (Pepto-Bismol) docosanol 10 % topical cream 1 applic topical 5XD PRN Cold Sores 09/30/21 12/11/22 History (Abreva) ondansetron HCl 4 mg tablet 4 mg PO Q8H PRN nausea/vomiting 09/30/21 12/11/22 History (Zofran) gabapentin 100 mg capsule 200 mg PO BID 07/14/22 12/11/22 History guaifenesin 100 mg/5 mL oral liquid 200 mg PO Q6H PRN Cough 07/14/22 12/11/22 History topiramate 50 mg tablet 50 mg PO BID 30 days #60 tabs 07/14/22 12/11/22 Rx Menthol-Ascorbic Acid Lozenge 1 flo PO Q4H PRN Sore Throat 07/20/22 12/11/22 History aluminum-mag hydroxide-simethicone 30 ml PO Q8H PRN Acid Reflux 07/20/22 History 225 mg-200 mg-25 mg/5 mL oral susp bisacodyl 10 mg rectal suppository 10 mg ME QPM PRN Constipation 07/20/22 12/11/22 History (Dulcolax (bisacodyl)) erenumab-aooe 140 mg/mL 140 mg subcut Q30D 07/20/22 12/11/22 History subcutaneous auto-injector magnesium hydroxide 800 mg/5 mL 30 mg PO UD PRN Constipation 07/20/22 12/11/22 History oral suspension peg 400-propylene glycol (PF) 0.4 1 drp ophthalmic (eye) Q8H PRN Dry 07/20/22 12/11/22 History %-0.3 % eye drops in a dropperette Eyes (Systane (PF)) sodium phosphates 19 gram-7 197 ml ME QAM PRN Constipation 07/20/22 12/11/22 History gram/118 mL enema (Fleet Enema) sucralfate 1 gram tablet 1 g PO BID 07/20/22 12/11/22 History Patient History Medical History Anemia Cancer Hx breast, lung and laryngeal cancer (larynx radiation, laryngectomy 2008) Chronic pain syndrome Chronic respiratory failure Constipation COPD (chronic obstructive pulmonary disease) Depression with anxiety Dysphagia Elevated hemidiaphragm GERD (gastroesophageal reflux disease) History of COVID-19 11/2020, pneumonia Hx MRSA infection Hx of chronic respiratory failure Hx of hypokalemia Hx of malignant neoplasm larynx and breast Hx of migraine headaches Hx of Raynaud's syndrome Hyperlipemia Hypertension Hypothyroidism Insomnia Muscle weakness Generalized On home oxygen therapy 2L via trach mask Osteoarthritis Tracheostomy in place 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 Family/Other Prostate cancer Sister , Passed age 64 of [place] No problems noted. Sister No problems noted. Sister No problems noted. Sister No problems noted. Brother No problems noted. Son , Passed as child in MVA No problems noted. Son , Passed as child in MVA No problems noted. Son No problems noted. Son No problems noted. Daughter No problems noted. Social History Smoking Status: Unknown if ever smoked Cigarettes Per Day: 3 ppd, 40 pack year history, quit 2009; Hx Alcohol Use: No Hx Substance Use: No Preferred Language: Persian Communication Ability: Effective Visual Impairment: Limited Hearing Ability: Normal Poising Inspector Required: No Beliefs That Will Affect Care: None marital status: Single Current Living Situation: [facility] Current Living Situation Comment: [facility] current occupational status: retired current occupation: Retired Other Information That Helps Us Care for You: No Feels Safe at Home: Yes Safety Concerns: Feels Safe At This Time caffeine: Yes (0-1 cup / day ) during the past year weight has: remained stable Assistive Devices: Glasses, Oxygen - Continuous and Wheelchair Review of Systems Review of Systems: All systems reviewed & are unremarkable except as noted in HPI & below Physical Exam Physical Exam: General: Thin, frail, uncomfortable Eyes: Sclerae anicteric HENT: O2 mask over tracheostomy Lungs: Clear to auscultation anteriorly Cardiac: Tachycardic, regular, no murmurs Abdomen: Soft Psych: Alert orient x3, normal affect and mood Extremities/Vascular: -- 1+ right radial, small hematoma surrounding access site. Fingers with purpleish discoloration on right. Nonpalpable radial pulse on left --1+ DP on right. Sluggish capillary refill -- Nonpalpable DP/PT pulses on left. Foot pinkish color. Distal toes whitish in color with poor capillary fill. Superficial ulcers/scaling over second/third/fourth toes. Ecchymosis left upper thigh extending over inguinal crease, tender, no firm hematoma Results & Data ([facility]) Vital Signs (Past 12 Hours) Vital Signs Temp Pulse Pulse Resp BP Pulse Ox O2 Del Method 12/12/22 10:15 140/75 12/12/22 10:15 120 H 18 100 12/12/22 10:00 122 H 25 H 99 12/12/22 10:00 133/81 12/12/22 09:31 114/91 12/12/22 09:31 123 H 16 100 12/12/22 09:17 122 H 14 100 12/12/22 09:17 133/80 12/12/22 09:00 124 H 22 100 12/12/22 08:00 115 H 17 100 12/12/22 07:00 115 H 13 100 12/12/22 09:52 Trach Collar 12/12/22 09:21 99.9 F H 123 H 20 133/80 100 12/12/22 08:31 114 H 14 100 Trach Collar 12/12/22 06:30 110 H 27 H 100 12/12/22 06:00 116 H 14 100 12/12/22 05:30 117 H 21 100 12/12/22 05:00 108 H 17 100 12/12/22 04:30 109 H 21 100 12/12/22 04:00 104 H 14 100 12/12/22 03:30 105 H 37 H 100 12/12/22 03:00 101 H 23 12/12/22 02:30 95 H 19 100 12/12/22 04:00 105 H 158/66 H 12/12/22 00:00 115 H 12/12/22 02:00 99 H 29 H 86 L 12/12/22 01:30 98 H 36 H 100 12/12/22 00:50 99 H 20 90 12/12/22 00:40 100 H 23 99 12/12/22 00:30 110 H 30 H 97 12/12/22 00:20 112 H 22 98 12/12/22 00:10 113 H 28 H 96 12/12/22 00:00 114 H 22 94 12/11/22 23:50 115 H 26 H 97 12/11/22 23:40 115 H 26 H 99 12/11/22 23:30 116 H 27 H 100 12/12/22 00:00 114 H 115/54 L 12/12/22 01:02 98 H 135/61 O2 Flow Rate FiO2 12/12/22 10:15 12/12/22 10:15 12/12/22 10:00 12/12/22 10:00 12/12/22 09:31 12/12/22 09:31 12/12/22 09:17 12/12/22 09:17 12/12/22 09:00 12/12/22 08:00 12/12/22 07:00 12/12/22 09:52 6 30 12/12/22 09:21 6 12/12/22 08:31 12 40 12/12/22 06:30 12/12/22 06:00 12/12/22 05:30 12/12/22 05:00 12/12/22 04:30 12/12/22 04:00 12/12/22 03:30 12/12/22 03:00 12/12/22 02:30 12/12/22 04:00 12/12/22 00:00 12/12/22 02:00 12/12/22 01:30 12/12/22 00:50 12/12/22 00:40 12/12/22 00:30 12/12/22 00:20 12/12/22 00:10 12/12/22 00:00 12/11/22 23:50 12/11/22 23:40 12/11/22 23:30 12/12/22 00:00 12/12/22 01:02 PG Care Time/CCT Total # of Minutes Spent Total Time Spent with Patient: Total time spent is greater than 50% in coordination of care (as documented) at patient's floor/unit and/or counseling patient: Coding Level of Care Code 46692 INT INP/OBS CARE 3/75MIN Diagnoses PAD (peripheral artery disease) I73.9
[2022-12-12] MEDS ORDERED: CARBOHYDRATES FOR HYPOGLYCEMIA PO ONE (12:24)
[2022-12-12] MEDS ORDERED: GLUCOSE 10 TAB/TUBE PO PRN (12:30)
[2022-12-12] MEDS ORDERED: DEXTROSE 50% 50 ML SYRINGE IV PRN (12:30)
[2022-12-12] MEDS ORDERED: GLUCOSE 40% GEL 15 GM TUBE PO PRN (12:30)
[2022-12-12] MEDS ORDERED: CARBOHYDRATES FOR HYPOGLYCEMIA PO PRN (12:30)
[2022-12-12] MEDS ORDERED: GLUCAGON FOR INJ 1 MG VIAL IM PRN (12:30)
[2022-12-12 12:56] LABS: Hematocrit (blood only) 27.9 % (37.0-47.0); Hemoglobin 9.1 g/dl (12.0-16.0)
[2022-12-12 13:23] LABS: Fibrinogen 420 mg/dl (184-400); INR 1.2 (0.9-1.1); Partial Thromboplastin Ratio 1.5; Partial Thromboplastin Time 40.5 Seconds (21.0-31.0); Prothrombin Time 12.5 Seconds (9.0-12.0)
[2022-12-12 13:49] LABS: BUN Creatinine Ratio 18.4 (10-20); Calcium 8.7 mg/dl (8.5-10.1); Creatinine Clr Calc Pharmacy 31.2 ml/min; Est GFR (African American) 63.3 ml/min; Est GFR (Non-African American) 54.6 ml/min
--- NOTE | 2022-12-12 15:31 | Electrocardiogram Report ---
Test Reason : Blood Pressure : / mmHG Vent. Rate : 113 BPM Atrial Rate : 113 BPM P-R Int : 154 ms QRS Dur : 064 ms QT Int : 348 ms P-R-T Axes : 068 058 063 degrees QTc Int : 477 ms Poor data quality, interpretation may be adversely affected Sinus tachycardia Otherwise normal ECG When compared with ECG of 04-OCT-2021 11:00, Vent. rate has increased BY 43 BPM Confirmed by Ras Garcia ([id number]) on 12/12/2022 3:30:55 PM Referred By: Craig Yee Confirmed By:Ras Garcia
[2022-12-12 19:09] LABS: Hematocrit (blood only) 24.8 % (37.0-47.0)
[2022-12-12] MEDS: GABAPENTIN 250 MG/5 ML 470 ML BTL PO SCH (21:02)
[2022-12-13] MEDS: TOPIRAMATE 50 MG TAB PO SCH ×2 (00:50→12:00)
[2022-12-13] MEDS: MoRPHine SULFATE 4 MG/ML 1 ML CARP\\VIAL IV PRN ×3 (00:54→08:20)
[2022-12-13 01:18] LABS: Hematocrit (blood only) 23.9 % (37.0-47.0); Hemoglobin 7.7 g/dl (12.0-16.0)
[2022-12-13] MEDS ORDERED: SODIUM CHLORIDE 0.9% 250 ML IV PRN (01:53)
[2022-12-13] MEDS: ACETAMINOPHEN 500 MG TAB PO PRN ×2 (03:54→16:46)
--- NOTE | 2022-12-13 04:12 | Billing Data ---
Date of Service December 11, 2022 Coding Level of Care Code 39348 INT INP/OBS CARE
--- NOTE | 2022-12-13 04:13 | Billing Data ---
Date of Service December 11, 2022 Coding Level of Care Code Critical Care mins
--- NOTE | 2022-12-13 04:27 | Hospitalist Progress Note ---
Date of Service December 12, 2022 Assessment & Plan (1) Postoperative hypovolemic shock: Plan: S/p angioplasty in the afternoon on 12/11, with complication of left thigh hematoma and rapid development of profound hypotension and decreased responsiveness - obtunded/unresponsive on exam Improved after removal of nitroglycerin paste, naloxone total 1.2 mg, NSS 1L bolus Levophed caused worsening peripheral ischemia and radial measured BP appears much higher Per ICU ok to be downgraded at this time See below for acute blood loss anemia Of note her radial line showed a BP higher than that of the BP cuff likely due to extensive atherosclerotic disease (2) Acute blood loss anemia: Plan: Suspect blood loss from intramuscular hematoma left rectus femoris, left iliacus and left thigh S/p 1 unit packed red blood cells 12/12, Hgb 9.1 following this - hold Aspirin/Plavix due to concern for active bleed - Aim Hgb > 8 for now. Will defer to Dr Yee if goal is to maintain higher than this given her ischemia. (3) PAD (peripheral artery disease): Plan: S/p angioplasty as stated above. - Dr. Yee consulted - appreciate ongoing recs - held ASA/Plavix as stated above due to suspected active bleed We will consult pain management to help with pain control given significant opiate use (4) Fecal impaction: Plan: Possible contributing towards abdominal pain on exam although this may be hemorrhage as well Start MiraLax 17g BID and Senna/docusate 1 tab BID (5) Hypotension: Plan: Profound hypotension, in context of above. - hold home anti-hypotensives, fluids/vasopressors as stated above (6) Acute encephalopathy: Plan: Obtunded and unresponsive to verbal/noxious stimuli --> in context opiates, gabapentin, diphenhydramine, hypotension Appears improved despite current morphine dosing Continue to monitor (7) Laryngeal cancer: Plan: S/p tracheostomy 10 years ago, with chronic trach collar. - continue supplemental O2 as needed to maintain sats 88-92% (COPD) (8) COPD (chronic obstructive pulmonary disease): Plan: Chronic, without wheezes on exam or evidence for acute exacerbation. - continue home inhalers when able (9) Anxiety: Plan: Continue BuSpar 15 mg p.o. twice daily (10) GERD (gastroesophageal reflux disease): Plan: Continue famotidine 20mg PO BID (11) Hypothyroidism: Plan: Continue levothyroxine 75 mcg PO daily (12) Tracheostomy present: Plan VTE Prophylaxis - chemical prophylaxis held due to acute blood loss anemia Diet - heart healthy Disposition - downgrade to PCU Admission and Anticipated Discharge Date Admission Date: December 11, 2022 Subjective Patient appears much improved from yesterday. Awake and alert. Eating and drinking throughout the day. Using morphine regularly (total 16mg today). Blood transfusion this morning. Appears much less pale. Still in significant pain especially in her feet despite morphine use. Review of Systems Review of Systems: All systems reviewed & are unremarkable except as noted in HPI & below Physical Exam Constitutional: well developed and + frail appearing; + not well nourished and no acute distress Eyes: + anicteric sclerae; normal pupil size ENMT: external ear and nose normal, oropharynx normal Respiratory: normal respiratory effort, lungs clear to auscultation (anteriorly) no stridor Cardiovascular: Rate/Rhythm: regular rhythm and + tachycardic Heart Sounds: no murmur Gastrointestinal (Abdomen): Inspection/Auscultation: abdomen normal to inspection and normal bowel sounds; abdomen not distended Percussion/Palpation: + abdomen tender (generalzied) and abdomen soft; no guarding and abdomen not rigid Skin: + lesion (chronic wounds of left lower extermity without surrounding cellulitis) and + ecchymosis (Left thigh, increased size since yesterday) Neurologic: awake; not confused Results & Data Results & Data ([facility]) Vital Signs (Past 12 Hours) Vital Signs Temp Pulse Resp BP Pulse Ox O2 Del Method 12/13/22 03:42 38.1 C H 128 H 25 H 109/64 95 12/13/22 03:15 38.1 C H 123 H 125/65 100 12/13/22 03:00 38.0 C H 129 H 121/68 100 12/13/22 02:42 38 C H 127 H 18 132/64 98 12/13/22 02:38 38.0 C H 126 H 132/64 100 12/13/22 00:22 124 H 12/12/22 21:59 Trach Collar 12/12/22 21:00 124 H 21 99 12/12/22 20:00 119 H 22 100 12/12/22 19:00 118 H 22 99 12/12/22 19:00 100/53 L PG Care Time/CCT Total # of Minutes Spent Total Time Spent with Patient: Total time spent is greater than 50% in coordination of care (as documented) at patient's floor/unit and/or counseling patient: Coding Level of Care Code 93928 SUB INP/OBS CARE 3/50MIN Diagnoses Postoperative hypovolemic shock T81.19XA Encounter type: initial encounter Acute blood loss anemia D62 PAD (peripheral artery disease) I73.9 Fecal impaction K56.41 Hypotension I95.9 Acute encephalopathy G93.40 Laryngeal cancer C32.9 COPD (chronic obstructive pulmonary disease) J43.9 COPD type: emphysema Emphysema type: unspecified Anxiety F41.9 GERD (gastroesophageal reflux disease) K21.9 Esophagitis presence: esophagitis presence not specified Hypothyroidism E03.9 Hypothyroidism type: unspecified Tracheostomy present Z93.0 (1) Postoperative hypovolemic shock Encounter type: initial encounter Qualified Code(s): T81.19XA - Other postprocedural shock, initial encounter (2) COPD (chronic obstructive pulmonary disease) COPD type: emphysema Emphysema type: unspecified Qualified Code(s): J43.9 - Emphysema, unspecified (3) GERD (gastroesophageal reflux disease) Esophagitis presence: esophagitis presence not specified Qualified Code(s): K21.9 - Gastro-esophageal reflux disease without esophagitis (4) Hypothyroidism Hypothyroidism type: unspecified Qualified Code(s): E03.9 - Hypothyroidism, unspecified
[2022-12-13] MEDS: LEVOTHYROXINE SODIUM 75 MCG TABLET PO SCH (04:55)
[2022-12-13 06:53] LABS: Albumin Globulin Ratio 1.2 (0.9-2); BUN Creatinine Ratio 13.3 (10-20); Bilirubin,Total 0.4 mg/dl (0.2-1.0); Calcium 8.3 mg/dl (8.5-10.1); Creatinine Clr Calc Pharmacy 35.7 ml/min; Est GFR (African American) 74.6 ml/min; Est GFR (Non-African American) 64.3 ml/min; Globulin 2.5 gm/dl (2.5-4.0); Magnesium 1.8 mg/dl (1.7-2.4); Phosphorus 2.7 mg/dl (2.5-4.9); Potassium 4.1 mmol/L (3.5-5.1); Total Protein 5.5 gm/dl (6.0-8.3)
[2022-12-13 07:03] LABS: Basophils # (auto) 0.03 K/uL (0-0.2); Basophils % (auto) 0.3 %; Eosinophils # (auto) 0.49 K/uL (0-0.50); Eosinophils % (auto) 4.2 %; Hematocrit (blood only) 28.7 % (37.0-47.0); Hemoglobin 9.5 g/dl (12.0-16.0); Immature Granulocytes # (auto) 0.04 K/uL (0.01-0.20); Immature Granulocytes % (auto) 0.3 %; Lymphocytes # (auto) 1.89 K/uL (1.2-3.4); Mean Corpuscular Hemoglobin 29.9 pg (25.0-34.0); Mean Corpuscular Hgb Conc 33.1 g/dL (32.0-36.0); Mean Corpuscular Volume 90.3 fL (80.0-100.0); Mean Platelet Volume 9.4 fL (9.4-12.4); Monocytes # (auto) 0.94 K/uL (0.11-0.59); Neutrophils # (auto) 8.39 K/uL (1.40-6.50); Neutrophils % (auto) 71.2 %; Platelet Count 143 K/uL (130-400); Platelet Estimate Normal (Normal); RDW Coefficient of Variation 13.6 % (11.5-14.5); RDW Standard Deviation 44.6 fL (36.4-46.3); Red Blood Count 3.18 M/uL (4.20-5.40); White Blood Count 11.78 K/ul (4.8-10.8)
[2022-12-13] MEDS ORDERED: NALOXONE HCL 0.4 MG/1 ML VIAL/CARP IV PRN (08:24)
--- NOTE | 2022-12-13 08:36 | XRay Report ---
SINGLE VIEW CHEST CLINICAL HISTORY: Hypoxia FINDINGS: An AP, portable, upright chest radiograph is compared to study dated 12/11/2022 and correlat ed with chest CT dated 10/18/2020. Surgical clips project over the lower neck. A right subclavian cent ral venous catheter is in place. The tip projects over the cavoatrial junction. The cardiomediastinal silhouette is unremarkable noting atherosclerotic calcification of the thoracic aorta. Advanced emph ysema and chronic interstitial thickening is similar to previous. There is volume loss in the right l speedy. Foci of parenchymal scarring are seen throughout both lungs. No airspace consolidation or large pleural effusion is identified. No pneumothorax is seen. The skeletal structures are osteopenic. The bony thorax is grossly intact. IMPRESSION: Advanced emphysema with no acute cardiopulmonary abnormality identified. ACT 112: Negative or not required by law. Electronically signed by: Kam Adames M.D. 12/13/2022 8:35 AM
--- NOTE | 2022-12-13 08:37 | Vascular Medicine ProgressNote ---
Date of Service December 13, 2022 Assessment & Plan (1) PAD (peripheral artery disease): Plan: Left foot critical limb ischemia -- Post left ARTIFICIAL FLOWER MAKER angioplasty. Diffuse residual multi-level disease History of Raynaud's 2. Post procedure shock -- resolved 3. Acute blood loss anemia/left thigh hematoma -- post 2uPRBC 4. History of laryngeal cancer post laryngectomy 2009 with tracheostomy 5. Chronic pain 6. COPD 7. Low grade fever -- CXR clear, WBC trending down Remains hemodynamically stable. Hb improved today after 2uPRBC LLE perfusion still limited -- Continue to trend H/H - if Hb stable restart ASA today. Possibly restart clopidogrel tomorrow -- No plans for additional revascularization at this time - options limited with comorbidities/frailty, access issues -- Retry low dose CCB today for possible raynaud's component -- Continue wound care, pain management -- Appreciate hospital medicine care. Admission and Anticipated Discharge Date Admission Date: December 12, 2022 Subjective No events overnight. H/H down last night and received 2uPRBC. This morning Hb up to 9.5. LT thigh/foot pain persists Tele reviewed -- sinus tach, gradually trending down. no events. Review of Systems Review of Systems: All systems reviewed & are unremarkable except as noted in HPI & below Physical Exam Physical Exam: General: Thin, frail. resting comfortably initially. in pain with light touch of LLE Eyes: Sclerae anicteric HENT: O2 mask over tracheostomy Lungs: Coarse BS with rhonchi L>R. No crackles Cardiac: Tachycardic, regular, no murmurs Abdomen: Soft Psych: Alert orient x3, normal affect and mood Extremities/Vascular: -- 1+ right radial, small hematoma surrounding access site. Improved discoloration, sluggish refil. Nonpalpable radial pulse on left --Faint DP on right. Sluggish capillary refill -- Nonpalpable DP/PT pulses on left. LT foot pink from mid foot to toes. Distal tips white. Superficial ulcers with scaling over dorsal aspect of toes. Black eschar involving plantar aspects of 2-5 toes at MTP joint. Ecchymosis left upper thigh extending over inguinal crease and to lateral flank, tender. Results & Data ([facility]) Vital Signs (Past 12 Hours) Vital Signs Temp Pulse Resp BP Pulse Ox O2 Del Method FiO2 12/13/22 06:00 116 H 18 12/13/22 05:30 110 H 16 88 L 12/13/22 05:30 132/76 12/13/22 05:00 121 H 13 92 12/13/22 05:00 126/71 12/13/22 04:00 124 H 19 100 Trach Collar 30 12/13/22 04:00 131/63 12/13/22 03:00 125 H 18 100 12/13/22 02:00 121 H 17 89 L 12/13/22 02:00 132/64 12/13/22 01:00 122 H 13 100 12/13/22 00:00 119 H 18 100 12/13/22 00:00 122/66 Trach Collar 30 12/12/22 23:00 117 H 15 89 L 12/12/22 23:00 93/48 L 12/12/22 22:00 122 H 17 100 12/13/22 00:00 100.0 F H 12/13/22 04:52 100.6 F H 123 H 17 115/66 100 12/13/22 03:42 100.6 F H 128 H 25 H 109/64 95 12/13/22 03:15 100.6 F H 123 H 125/65 100 12/13/22 03:00 100.4 F H 129 H 121/68 100 12/13/22 02:42 100.4 F H 127 H 18 132/64 98 12/13/22 02:38 100.4 F H 126 H 132/64 100 12/13/22 00:22 124 H 12/12/22 21:59 Trach Collar 12/12/22 21:00 124 H 21 99 PG Care Time/CCT Total # of Minutes Spent Total Time Spent with Patient: Total time spent is greater than 50% in coordination of care (as documented) at patient's floor/unit and/or counseling patient: Coding Level of Care Code 74077 SUB INP/OBS CARE 3/50MIN Diagnoses PAD (peripheral artery disease) I73.9
--- NOTE | 2022-12-13 08:43 | Pain Management Consultation ---
Date of Consultation December 13, 2022 Assessment & Plan (1) Pain of left lower extremity due to ischemia: (2) PAD (peripheral artery disease): (3) Tracheostomy present: (4) COPD (chronic obstructive pulmonary disease): COPD type: emphysema Emphysema type: unspecified Qualified Code(s): J43.9 - Emphysema, unspecified (5) Hematoma of left thigh: Plan 1. Due to the patient's intractable pain of the left lower extremity secondary to ischemic limb, will discontinue IV morphine and initiate hydromorphone CISO initially at 0.2 mg q. 20 minutes without any continuous dose with dose adjustment pending response 2. Patient may trial Oxy IR 5 mg every 4 hours as needed breakthrough pain-dose adjustment pending response 3. Patient will continue to work with vascular regarding the possibility of further intervention of the left lower extremity in an attempt to further diminished pain complaints 4. Consider discontinuation of Topamax with consideration of further titration of gabapentin History of Present Illness Reason for Consultation: Left lower extremity pain secondary to ischemic limb Requesting Physician: David Angeles MD Attending Physician: Cameron Verduzco MD History of Present Illness Mrs. Maria is a 72-year-old white female who was admitted due to left lower extremity wounds and persistent left foot pain for greater than 1 month who is diagnosed with PAD/critical limb ischemia of the left lower extremity and significant complaints of pain who underwent endovascular procedure with angioplasty to left [employer]ISTANT [employer] with Dr. Yee on 12/12/2022. Postprocedural timeframe was complicated with increasing unresponsiveness and hypotension requiring IV fluids, multiple rounds of naloxone, removal of nitroglycerin paste and transferred to ICU where she was treated with pressor therapy which has been discontinued at this time. Her mentation has reportedly returned to baseline as well as her vital signs. She continues to complain of severe pain of the left lower extremity predominately involving the foot but the pain is involving the entire leg to the groin. She is currently receiving IV morphine 4 mg every 4 hours with 20 mg utilized in the past 24 hours. She continues to complain of breakthrough pain described as sharp and burning. She reports moderate relief from IV morphine lasting for 2-3 hours only. Discussion with nursing staff indicates she is requesting IV morphine prior to her allowed 4-hour interval. Patient is reportedly tolerating the IV morphine without side effects. Nursing staff has reported no difficulties with sedation. Patient has been rating her pain at a 6-10/10. Plan of care discussed with Dr. Leann Goncalves Pain Assessment Full Body Front + Back: 1. Entire left leg-foot predominantly Pain scale - at its best (0-10): 6 Pain scale - at its worst (0-10): 10 Allergies Allergy/AdvReac Type Severity Reaction Status Date / Time alendronate sodium Allergy Unknown ON CENTRE Verified 12/04/22 10:03 CREST MED LIST penicillin V Allergy Unknown ON CENTRE Verified 12/04/22 10:03 CREST MED LIST sulfadiazine Allergy Unknown ON CENTRE Verified 12/04/22 10:03 CREST MED LIST Home Medications Medication Instructions Recorded Confirmed Type aspirin 81 mg chewable tablet 81 mg PO QAM 07/29/19 12/11/22 History simethicone 80 mg chewable tablet 80 mg PO QID 07/30/19 12/11/22 History (Gas Relief 80 (simethicone)) furosemide 20 mg tablet 20 mg PO QAM 12/31/19 12/11/22 History metoprolol tartrate 50 mg tablet 50 mg PO BID 12/31/19 12/11/22 History famotidine 20 mg tablet 20 mg PO BID 04/09/20 12/11/22 History ferrous sulfate 325 mg (65 mg 325 mg PO QAM 04/09/20 12/11/22 History iron) tablet pantoprazole 40 mg tablet,delayed 40 mg PO QAM 04/09/20 12/11/22 History release (Protonix) multivitamin 1 tab PO QAM 05/13/20 12/11/22 History budesonide 180 mcg/actuation 1 inh inhalation Q12H PRN 09/29/20 12/11/22 History breath activated powder inhaler Shortness Of Breath (Pulmicort Flexhaler) lasmiditan 100 mg tablet (Reyvow) 100 mg PO Q24H PRN migraines 09/29/20 12/11/22 History cyanocobalamin (vitamin B-12) 1,000 mcg PO QAM 01/20/21 12/11/22 History 1,000 mcg capsule buspirone 15 mg tablet 15 mg PO BID 04/21/21 12/11/22 History ipratropium 0.5 mg-albuterol 3 mg 3 ml inhalation Q4H PRN Shortness 04/21/21 12/11/22 History (2.5 mg base)/3 mL nebulization Of Breath soln amlodipine 2.5 mg tablet 2.5 mg PO QAM 08/02/21 12/11/22 History diphenhydramine HCl 12.5 mg/5 mL 50 mg PO TID 08/02/21 12/11/22 History oral elixir levothyroxine 75 mcg tablet 75 mcg PO QAM 08/02/21 12/11/22 History lorazepam 0.5 mg tablet 0.5 mg PO BID 08/02/21 12/11/22 History venlafaxine 75 mg tablet 75 mg PO BID 08/02/21 12/11/22 History acetaminophen 500 mg tablet 1,000 mg PO UD PRN Pain (Scale 09/30/21 12/11/22 History (Tylenol Extra Strength) Score 7-10) bismuth subsalicylate 262 mg/15 mL 524 mg PO Q6H PRN DIARRHEA/NAUSEA 09/30/21 12/11/22 History oral suspension (Pepto-Bismol) docosanol 10 % topical cream 1 applic topical 5XD PRN Cold Sores 09/30/21 12/11/22 History (Abreva) ondansetron HCl 4 mg tablet 4 mg PO Q8H PRN nausea/vomiting 09/30/21 12/11/22 History (Zofran) gabapentin 100 mg capsule 200 mg PO BID 07/14/22 12/11/22 History guaifenesin 100 mg/5 mL oral liquid 200 mg PO Q6H PRN Cough 07/14/22 12/11/22 History topiramate 50 mg tablet 50 mg PO BID 30 days #60 tabs 07/14/22 12/11/22 Rx Menthol-Ascorbic Acid Lozenge 1 flo PO Q4H PRN Sore Throat 07/20/22 12/11/22 History aluminum-mag hydroxide-simethicone 30 ml PO Q8H PRN Acid Reflux 07/20/22 12/11/22 History 225 mg-200 mg-25 mg/5 mL oral susp bisacodyl 10 mg rectal suppository 10 mg VT QPM PRN Constipation 07/20/22 12/11/22 History (Dulcolax (bisacodyl)) erenumab-aooe 140 mg/mL 140 mg subcut Q30D 07/20/22 12/11/22 History subcutaneous auto-injector magnesium hydroxide 800 mg/5 mL 30 mg PO UD PRN Constipation 07/20/22 12/11/22 History oral suspension peg 400-propylene glycol (PF) 0.4 1 drp ophthalmic (eye) Q8H PRN Dry 07/20/22 12/11/22 History %-0.3 % eye drops in a dropperette Eyes (Systane (PF)) sodium phosphates 19 gram-7 197 ml VT QAM PRN Constipation 07/20/22 12/11/22 History gram/118 mL enema (Fleet Enema) sucralfate 1 gram tablet 1 g PO BID 07/20/22 12/11/22 History Pain History Pain Intensity Pain scale - at its best (0-10): 6 Pain scale - at its worst (0-10): 10 Patient History Medical History (Updated 12/13/22 @ 08:52 by Trace Mcfarland PA-C) Anemia Cancer Hx breast, lung and laryngeal cancer (larynx radiation, laryngectomy 2008) Chronic pain syndrome Chronic respiratory failure Constipation COPD (chronic obstructive pulmonary disease) Depression with anxiety Dysphagia Elevated hemidiaphragm GERD (gastroesophageal reflux disease) Hematoma of left thigh History of COVID-19 11/2020, pneumonia Hx MRSA infection Hx of chronic respiratory failure Hx of hypokalemia Hx of malignant neoplasm larynx and breast Hx of migraine headaches Hx of Raynaud's syndrome Hyperlipemia Hypertension Hypothyroidism Insomnia Muscle weakness Generalized On home oxygen therapy 2L via trach mask Osteoarthritis Pain of left lower extremity due to ischemia Tracheostomy in place Vitamin A 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 Family/Other Prostate cancer Sister , Passed age 64 of CA No problems noted. Sister No problems noted. Sister No problems noted. Sister No problems noted. Brother No problems noted. Son , Passed as child in MVA No problems noted. Son , Passed as child in MVA No problems noted. Son No problems noted. Son No problems noted. Daughter No problems noted. 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 Alert and oriented x3. Tracheostomy in place with supplemental oxygen therapy over trach. Communication is difficult due to tracheostomy. Patient is thin and frail with muscular wasting. Head: Normocephalic and atraumatic. ENT: No evidence of nasal or oral mucosal lesions. Mucous membranes are moist. Eyes: Pupils equal round reactive to light. Abdomen: Soft and nondistended. No organomegaly. Bowel sounds active. Lower extremities: Left lower extremity with visible ecchymosis in the groin/inguinal fold extending into the proximal medial thigh. Some generalized tenderness to palpation. There is no skin breakdown. Patient is tender to light palpation over the left lower extremity with withdrawal and apprehension to any physical exam below the level of the knee. Patient has superficial ulcers with scaling over the dorsal aspect of all toes on the left foot. There is black eschar involving the plantar aspect of the second through fifth toes at the MTP joint. Right foot with some skin breakdown and ulceration between the fourth and fifth toe. Neurologic: Cranial nerves grossly intact. Ambulatory function not witnessed.
[2022-12-13] MEDS: busPIRone 15 MG TAB PO SCH ×2 (09:30→20:58)
[2022-12-13] MEDS: VENLAFAXINE HCL 37.5 MG TAB PO SCH ×2 (09:32→20:59)
[2022-12-13] MEDS: FAMOTIDINE 20 MG TAB PO SCH ×2 (09:32→20:58)
[2022-12-13] MEDS: DOCUSATE SODIUM/SENNA 50/8.6MG TAB PO SCH ×2 (09:35→20:59)
[2022-12-13] MEDS: GABAPENTIN 250 MG/5 ML 470 ML BTL PO SCH ×2 (09:36→21:11)
[2022-12-13] MEDS: CYANOCOBALAMIN (B-12) 500 MCG TABLET PO SCH (09:36)
[2022-12-13] MEDS: FERROUS SULFATE 325 MG/7.4 ML UDP PO SCH (10:10)
[2022-12-13] MEDS: MULTI VIT W/MINERALS LIQUID 15 ML UDP PO SCH (10:12)
[2022-12-13] MEDS: POLYETHYLENE (MIRALAX) 17 GM PACK PO SCH ×3 (10:12→21:00)
[2022-12-13] MEDS: HYDROmorphone PCA 30 MG/30 ML IV PRN ×2 (10:47→14:55)
[2022-12-13] MEDS: SODIUM CHLORIDE 0.9% 1000ML 1,000 ML IV SCH (11:11)
[2022-12-13 13:55] LABS: Hematocrit (blood only) 30.1 % (37.0-47.0)
--- NOTE | 2022-12-13 13:56 | Hospitalist Progress Note ---
Date of Service December 13, 2022 Assessment & Plan (1) Postoperative hypovolemic shock: Plan: S/p angioplasty in the afternoon on 12/11, with complication of left thigh hematoma and rapid development of profound hypotension and decreased responsiveness Now resolved (2) Acute blood loss anemia: Plan: Suspect blood loss from intramuscular hematoma left rectus femoris, left iliacus and left thigh S/p 1 unit packed red blood cells 12/12, Hgb 9.1 following this - hold Aspirin/Plavix due to concern for active bleed - Aim Hgb > 8 for now. (3) PAD (peripheral artery disease): Plan: S/p angioplasty as stated above. - Vascular on consult - held ASA/Plavix as stated above due to suspected active bleed -Pain management also on consult, currently on ROD PULLER AND COILER (4) Fecal impaction: Plan: Possible contributing towards abdominal pain on exam although this may be hemorrhage as well Start MiraLax 17g BID and Senna/docusate 1 tab BID last BM was 5 days ago (5) Hypotension: Plan: Now resolved (6) Acute encephalopathy: Plan: now resolved (7) Laryngeal cancer: Plan: S/p tracheostomy 10 years ago, with chronic trach collar. - continue supplemental O2 as needed to maintain sats 88-92% (COPD) (8) COPD (chronic obstructive pulmonary disease): Plan: Chronic, without wheezes on exam or evidence for acute exacerbation. - continue home inhalers when able (9) Anxiety: Plan: Continue BuSpar 15 mg p.o. 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 Admission and Anticipated Discharge Date Admission Date: December 12, 2022 Subjective patient seen and examined, still a lot of pain lower extremity, last bowel movement was 5 days ago Review of Systems Review of Systems: All systems reviewed are negative, apart from the ones contained in the history. Physical Exam Physical Exam: The patient is awake, alert and oriented 3, well developed and well nourished, normocephalic and atraumatic, lying in bed and in no acute distress. HEENT--PERRL, EOMI, mucous membranes and oropharynx mildly dry Neck--trachestomy tube in situ. Heart--normal S1 and S2. No murmurs, rubs or gallops. Lungs--clear bilaterally, no respiratory distress, no accessory muscle use. Abdomen--normal bowel sounds and soft. Mild epigastric and left sided abdominal pain Extremities--mild contracture, gangrenous changes most digits Dermatologic--normal skin turgor, normal color, no abnormal lymph nodes, no rash. Neurologic--cranial nerves II through XII grossly intact. Rheumatologic--normal range of motion. Psychiatric--normal affect. Results & Data Results & Data ([facility]) Vital Signs (Past 12 Hours) Vital Signs Temp Pulse Pulse Resp BP BP Pulse Ox 12/13/22 08:00 12/13/22 11:51 98.4 F 105 H 19 124/66 100 12/13/22 08:00 99.3 F 107 H 17 122/61 100 12/13/22 06:00 116 H 18 12/13/22 05:30 110 H 16 88 L 12/13/22 05:30 132/76 12/13/22 05:00 121 H 13 92 12/13/22 05:00 126/71 12/13/22 04:00 124 H 19 100 12/13/22 04:00 131/63 12/13/22 03:00 125 H 18 100 12/13/22 02:00 121 H 17 89 L 12/13/22 02:00 132/64 12/13/22 04:52 100.6 F H 123 H 17 115/66 100 12/13/22 03:42 100.6 F H 128 H 25 H 109/64 95 12/13/22 03:15 100.6 F H 123 H 125/65 100 12/13/22 03:00 100.4 F H 129 H 121/68 100 12/13/22 02:42 100.4 F H 127 H 18 132/64 98 12/13/22 02:38 100.4 F H 126 H 132/64 100 O2 Del Method O2 Flow Rate FiO2 12/13/22 08:00 Trach Collar 10 30 12/13/22 11:51 Trach Collar 30 12/13/22 08:00 Trach Collar 30 12/13/22 06:00 12/13/22 05:30 12/13/22 05:30 12/13/22 05:00 12/13/22 05:00 12/13/22 04:00 Trach Collar 30 12/13/22 04:00 12/13/22 03:00 12/13/22 02:00 12/13/22 02:00 12/13/22 04:52 12/13/22 03:42 12/13/22 03:15 12/13/22 03:00 12/13/22 02:42 12/13/22 02:38 PG Care Time/CCT Total # of Minutes Spent Total Time Spent with Patient: Total time spent is greater than 50% in coordination of care (as documented) at patient's floor/unit and/or counseling patient: Coding Level of Care Code 07370 SUB INP/OBS CARE 2/35MIN Diagnoses Postoperative hypovolemic shock T81.19XA Encounter type: initial encounter Acute blood loss anemia D62 PAD (peripheral artery disease) I73.9 Fecal impaction K56.41 Hypotension I95.9 Acute encephalopathy G93.40 Laryngeal cancer C32.9 COPD (chronic obstructive pulmonary disease) J43.9 COPD type: emphysema Emphysema type: unspecified Anxiety F41.9 GERD (gastroesophageal reflux disease) K21.9 Esophagitis presence: esophagitis presence not specified Hypothyroidism E03.9 Hypothyroidism type: unspecified Tracheostomy present Z93.0 Time Spent (min) 35 (1) Postoperative hypovolemic shock Encounter type: initial encounter Qualified Code(s): T81.19XA - Other postprocedural shock, initial encounter (2) COPD (chronic obstructive pulmonary disease) COPD type: emphysema Emphysema type: unspecified Qualified Code(s): J43.9 - Emphysema, unspecified (3) GERD (gastroesophageal reflux disease) Esophagitis presence: esophagitis presence not specified Qualified Code(s): K21.9 - Gastro-esophageal reflux disease without esophagitis (4) Hypothyroidism Hypothyroidism type: unspecified Qualified Code(s): E03.9 - Hypothyroidism, unspecified
[2022-12-13] MEDS: amLODIPine BESYLATE 5 MG TAB PO SCH (15:03)
[2022-12-13] MEDS ORDERED: CEFEPIME 1,000 MG in SYRINGE 0 ML IV SCH (17:15)
[2022-12-13] MEDS: ONDANSETRON INJ 2 MG/ML 2 ML VIAL IV PRN (17:56)
[2022-12-13 19:59] LABS: Hematocrit (blood only) 33.6 % (37.0-47.0); Hemoglobin 11.2 g/dl (12.0-16.0)
[2022-12-14] MEDS ORDERED: ACETAMINOPHEN 1,000 MG/100 ML VIAL IV STA (00:36)
[2022-12-14] MEDS: TOPIRAMATE 50 MG TAB PO SCH ×3 (00:53→23:40)
[2022-12-14 00:54] LABS: Hematocrit (blood only) 31.1 % (37.0-47.0); Hemoglobin 10.1 g/dl (12.0-16.0)
[2022-12-14 04:40] LABS: Basophils # (auto) 0.03 K/uL (0-0.2); Basophils % (auto) 0.2 %; Eosinophils # (auto) 0.49 K/uL (0-0.50); Eosinophils % (auto) 3.7 %; Hematocrit (blood only) 29.9 % (37.0-47.0); Hemoglobin 9.7 g/dl (12.0-16.0); Immature Granulocytes # (auto) 0.06 K/uL (0.01-0.20); Immature Granulocytes % (auto) 0.5 %; Lymphocytes # (auto) 1.75 K/uL (1.2-3.4); Lymphocytes % (auto) 13.1 %; Mean Corpuscular Hemoglobin 29.5 pg (25.0-34.0); Mean Corpuscular Hgb Conc 32.4 g/dL (32.0-36.0); Mean Corpuscular Volume 90.9 fL (80.0-100.0); Mean Platelet Volume 9.6 fL (9.4-12.4); Monocytes # (auto) 0.94 K/uL (0.11-0.59); Monocytes % (auto) 7.1 %; Neutrophils # (auto) 10.05 K/uL (1.40-6.50); Neutrophils % (auto) 75.4 %; Platelet Count 146 K/uL (130-400); RDW Standard Deviation 46.4 fL (36.4-46.3); Red Blood Count 3.29 M/uL (4.20-5.40); White Blood Count 13.32 K/ul (4.8-10.8)
[2022-12-14 05:01] LABS: Albumin Globulin Ratio 1.1 (0.9-2); Albumin Level 2.9 gm/dl (3.4-5.0); BUN Creatinine Ratio 13.1 (10-20); Bilirubin,Total 0.4 mg/dl (0.2-1.0); Calcium 8.5 mg/dl (8.5-10.1); Creatinine Clr Calc Pharmacy 38.3 ml/min; Est GFR (Non-African American) 69.9 ml/min; Globulin 2.7 gm/dl (2.5-4.0); Magnesium 1.7 mg/dl (1.7-2.4); Phosphorus 3.2 mg/dl (2.5-4.9); Total Protein 5.6 gm/dl (6.0-8.3)
[2022-12-14] MEDS: LEVOTHYROXINE SODIUM 75 MCG TABLET PO SCH (06:02)
[2022-12-14] MEDS: ONDANSETRON INJ 2 MG/ML 2 ML VIAL IV PRN (07:44)
[2022-12-14] MEDS: HYDROmorphone PCA 30 MG/30 ML IV PRN ×2 (09:33→14:53)
[2022-12-14] MEDS: oxyCODONE HCL IR 5 MG TAB (IMMEDIATE RELEASE) PO PRN (09:41)
[2022-12-14] MEDS: VENLAFAXINE HCL 37.5 MG TAB PO SCH ×2 (10:01→19:54)
[2022-12-14] MEDS: busPIRone 15 MG TAB PO SCH ×2 (10:02→19:53)
[2022-12-14] MEDS: CYANOCOBALAMIN (B-12) 500 MCG TABLET PO SCH (10:02)
[2022-12-14] MEDS: FAMOTIDINE 20 MG TAB PO SCH ×2 (10:02→19:53)
[2022-12-14] MEDS: DOCUSATE SODIUM/SENNA 50/8.6MG TAB PO SCH ×2 (10:02→19:56)
[2022-12-14] MEDS: POLYETHYLENE (MIRALAX) 17 GM PACK PO SCH ×2 (10:03→19:56)
[2022-12-14] MEDS: amLODIPine BESYLATE 5 MG TAB PO SCH (10:03)
[2022-12-14] MEDS: FERROUS SULFATE 325 MG/7.4 ML UDP PO SCH (10:03)
[2022-12-14] MEDS: MULTI VIT W/MINERALS LIQUID 15 ML UDP PO SCH (10:03)
[2022-12-14] MEDS: GABAPENTIN 250 MG/5 ML 470 ML BTL PO SCH ×2 (10:05→19:56)
[2022-12-14] MEDS: ASPIRIN 81 MG ECTAB PO SCH (10:14)
[2022-12-14] MEDS: CEFEPIME 2,000 MG in SYRINGE 0 ML IV SCH ×2 (11:44→23:40)
--- NOTE | 2022-12-14 13:09 | Vascular Medicine ProgressNote ---
Date of Service December 14, 2022 Assessment & Plan (1) PAD (peripheral artery disease): Plan: Left foot critical limb ischemia -- Post left [employer] angioplasty. Diffuse residual multi-level disease History of Raynaud's 2. Post procedure shock -- resolved 3. Acute blood loss anemia/left thigh hematoma -- post 2uPRBC 4. History of laryngeal cancer post laryngectomy 2009 with tracheostomy 5. Chronic pain 6. COPD 7. Low grade fever -- CXR clear, WBC trending up today, blood cultures pending Remains hemodynamically stable. Hb stable LLE perfusion still limited Apparent right radial artery occlusion post cath on bedside limited ultrasound No plans for additional attempts at revascularization at this time in the setting of patient's comorbidities/frailty and access issues. Tolerating aspirin, start clopidogrel 75 mg today Continue to monitor for right hand ischemia. Better perfused today and Doppler suggests flow in small distal ulnar artery. Raynaud's playing a part in bilateral hand cyanosis. Continue current amlodipine, increase to 5 mg as BP allows Follow-up blood cultures, consider p.o. antibiotics for possible lower extremity cellulitis Hopeful conversion to oral pain medicines If remains stable and on oral meds feel can return to [facility] with vascular outpatient follow-up. Admission and Anticipated Discharge Date Admission Date: December 12, 2022 Subjective No events overnight. Endorses persistent pain in left leg, right hand despite RECORDS ASSOCIATE. Low-grade fevers yesterday, blood cultures pending Telemetrysinus tachycardia persists, no arrhythmia Review of Systems Review of Systems: All systems reviewed & are unremarkable except as noted in HPI & below Physical Exam Physical Exam: General: Thin, frail. resting comfortably initially. in pain with light touch of LLE or right arm Eyes: Sclerae anicteric HENT: O2 mask over tracheostomy Lungs: Lungs more clear today Cardiac: Tachycardic, regular, no murmurs Abdomen: Soft Psych: Alert orient x3, normal affect and mood Extremities/Vascular: -- Nonpalpable right radial small hematoma surrounding access site. Improved purpleish discoloration from yesterday. Sluggish capillary refill more so in the first second third digits then fourth and fifth. Purplish discoloration of digits on left hand. Nonpalpable left radial pulse. --Faint DP on right. Sluggish capillary refill -- Nonpalpable DP/PT pulses on left. LT foot pink from mid foot to toes. Distal tips white. Superficial ulcers with scaling over dorsal aspect of toes. Black eschar involving plantar aspects of 2-5 toes at MTP joint. Ecchymosis left upper thigh extending over inguinal crease and to lateral flank, tender. Results & Data ([facility]) Vital Signs (Past 12 Hours) Vital Signs Temp Pulse Resp BP Pulse Ox O2 Del Method O2 Flow Rate 12/14/22 12:00 100.0 F H 117 H 18 105/57 L 96 12/14/22 11:00 120 H 12/14/22 08:00 99.9 F H 120 H 14 102/69 99 Trach Collar 6 12/14/22 07:00 99.3 F 117 H 49 H 12/14/22 07:00 120 H 12/14/22 08:00 109 H 12/14/22 06:00 99.1 F 109 H 12 12/14/22 04:00 99.1 F 111 H 15 12/14/22 04:00 107/60 12/14/22 03:00 106/61 12/14/22 03:00 99.9 F H 117 H 17 12/14/22 02:00 100.6 F H 117 H 14 12/14/22 02:00 92/46 L 12/14/22 03:00 99.7 F H 118 H FiO2 12/14/22 12:00 12/14/22 11:00 12/14/22 08:00 30 12/14/22 07:00 12/14/22 07:00 12/14/22 08:00 12/14/22 06:00 12/14/22 04:00 12/14/22 04:00 12/14/22 03:00 12/14/22 03:00 12/14/22 02:00 12/14/22 02:00 12/14/22 03:00 PG Care Time/CCT Total # of Minutes Spent Total Time Spent with Patient: Total time spent is greater than 50% in coordination of care (as documented) at patient's floor/unit and/or counseling patient: Coding Level of Care Code 01143 SUB INP/OBS CARE 3/50MIN Diagnoses PAD (peripheral artery disease) I73.9
[2022-12-14] MEDS ORDERED: SODIUM CHLORIDE 0.9% 1000ML 500 ML IV ONE (15:06)
--- NOTE | 2022-12-14 16:24 | Palliative Care Consultation ---
Date of Consultation December 14, 2022 Assessment & Plan (1) Pain of left lower extremity due to ischemia: defer to pain management She is not on comfort measures (2) Palliative care encounter: "Caroline" was seen by palliative care on a prior admission with covid pneumonia and failure to thrive. At that time she was refusing to eat and frequently refusing medications. She has continued to lose weight and her current weight is 87lbs. Her albumin is 2.9. She has an advance directive from [facility] which indicates that she would want full code, full treatment. This is consistent with discussions with Caroline and her sister, Mei, who is her POA. I talked with Caroline about how things have been for her at [facility] and what she enjoys doing. Communication is limited with no speaking valve, but she tells me that she enjoys puzzles. She has many friends at [facility] and feels that she has a good life there. I also spoke with Mei who tells me that Caroline enjoys crafts and being on the computer. She also feels that Caroline has good quality of life prior to her admission. At this time, I do not think that Caroline lacks insight into her illness and the implications of decisions regarding her care. Her sister agrees with this. Caroline has consistently said that she d oes not want to and her sister wants to honor that wish. She feels that as long as Caroline has good quality of life, she should remain full code, full treatment. 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 She has had to make a similar decision on behalf of another sister in the past. She is prepared to do that. We discussed concern about whether Caroline understood the implications of being a full code when she made that decision and Mei feels that she did at that time. History of Present Illness Reason for Consultation: goals of care Requesting Physician: Dr. Verduzco Attending Physician: Cameron Verduzco MD History of Present Illness 72 yo lady with remote history of laryngeal cancer, s/p tracheostomy, as well as PVD, COPD, anxiety, chronic pain and hypertension. She has been a resident at [facility] for the last 13 years. She was admitted to the ICU after significant hypotension after a revascularization procedure. She has a large left thigh hematoma and has received 2 U of PRBCs. She is not currently requiring vasopressor support and is awake and alert. She continues to have ischemia of her left foot. She complains of pain in her hands and feet. She is being seen by pain management and is on a hydromorphone INFORMATION SYSTEMS AUDIT MANAGER. She does not answer when asked if she is currently having pain. She answers some questions with delayed response but does not appear to have good insight into her illness. Allergies Allergy/AdvReac Type Severity Reaction Status Date / Time alendronate sodium Allergy Unknown ON CENTRE Verified 12/04/22 10:03 CREST MED LIST penicillin V Allergy Unknown ON CENTRE Verified 12/04/22 10:03 CREST MED LIST sulfadiazine Allergy Unknown ON CENTRE Verified 12/04/22 10:03 CREST MED LIST Home Medications Medication Instructions Recorded Confirmed Type aspirin 81 mg chewable tablet 81 mg PO QAM 07/29/19 12/11/22 History simethicone 80 mg chewable tablet 80 mg PO QID 07/30/19 12/11/22 History (Gas Relief 80 (simethicone)) furosemide 20 mg tablet 20 mg PO QAM 12/31/19 12/11/22 History metoprolol tartrate 50 mg tablet 50 mg PO BID 12/31/19 12/11/22 History famotidine 20 mg tablet 20 mg PO BID 04/09/20 12/11/22 History ferrous sulfate 325 mg (65 mg 325 mg PO QAM 04/09/20 12/11/22 History iron) tablet pantoprazole 40 mg tablet,delayed 40 mg PO QAM 04/09/20 12/11/22 History release (Protonix) multivitamin 1 tab PO QAM 05/13/20 12/11/22 History budesonide 180 mcg/actuation 1 inh inhalation Q12H PRN 09/29/20 12/11/22 History breath activated powder inhaler Shortness Of Breath (Pulmicort Flexhaler) lasmiditan 100 mg tablet (Reyvow) 100 mg PO Q24H PRN migraines 09/29/20 12/11/22 History cyanocobalamin (vitamin B-12) 1,000 mcg PO QAM 01/20/21 12/11/22 History 1,000 mcg capsule buspirone 15 mg tablet 15 mg PO BID 04/21/21 12/11/22 History ipratropium 0.5 mg-albuterol 3 mg 3 ml inhalation Q4H PRN Shortness 04/21/21 12/11/22 History (2.5 mg base)/3 mL nebulization Of Breath soln amlodipine 2.5 mg tablet 2.5 mg PO QAM 08/02/21 12/11/22 History diphenhydramine HCl 12.5 mg/5 mL 50 mg PO TID 08/02/21 12/11/22 History oral elixir levothyroxine 75 mcg tablet 75 mcg PO QAM 08/02/21 12/11/22 History lorazepam 0.5 mg tablet 0.5 mg PO BID 08/02/21 12/11/22 History venlafaxine 75 mg tablet 75 mg PO BID 08/02/21 12/11/22 History acetaminophen 500 mg tablet 1,000 mg PO UD PRN Pain (Scale 09/30/21 12/11/22 History (Tylenol Extra Strength) Score 7-10) bismuth subsalicylate 262 mg/15 mL 524 mg PO Q6H PRN DIARRHEA/NAUSEA 09/30/21 12/11/22 History oral suspension (Pepto-Bismol) docosanol 10 % topical cream 1 applic topical 5XD PRN Cold Sores 09/30/21 12/11/22 History (Abreva) ondansetron HCl 4 mg tablet 4 mg PO Q8H PRN nausea/vomiting 09/30/21 12/11/22 History (Zofran) gabapentin 100 mg capsule 200 mg PO BID 07/14/22 12/11/22 History guaifenesin 100 mg/5 mL oral liquid 200 mg PO Q6H PRN Cough 07/14/22 12/11/22 History topiramate 50 mg tablet 50 mg PO BID 30 days #60 tabs 07/14/22 12/11/22 Rx Menthol-Ascorbic Acid Lozenge 1 flo PO Q4H PRN Sore Throat 07/20/22 12/11/22 History aluminum-mag hydroxide-simethicone 30 ml PO Q8H PRN Acid Reflux 07/20/22 12/11/22 History 225 mg-200 mg-25 mg/5 mL oral susp bisacodyl 10 mg rectal suppository 10 mg CA QPM PRN Constipation 07/20/22 12/11/22 History (Dulcolax (bisacodyl)) erenumab-aooe 140 mg/mL 140 mg subcut Q30D 07/20/22 12/11/22 History subcutaneous auto-injector magnesium hydroxide 800 mg/5 mL 30 mg PO UD PRN Constipation 07/20/22 12/11/22 History oral suspension peg 400-propylene glycol (PF) 0.4 1 drp ophthalmic (eye) Q8H PRN Dry 07/20/22 12/11/22 History %-0.3 % eye drops in a dropperette Eyes (Systane (PF)) sodium phosphates 19 gram-7 197 ml CA QAM PRN Constipation 07/20/22 12/11/22 History gram/118 mL enema (Fleet Enema) sucralfate 1 gram tablet 1 g PO BID 07/20/22 12/11/22 History Patient History Medical History Anemia Cancer Hx breast, lung and laryngeal cancer (larynx radiation, laryngectomy 2008) Chronic pain syndrome Chronic respiratory failure Constipation COPD (chronic obstructive pulmonary disease) Depression with anxiety Dysphagia Elevated hemidiaphragm GERD (gastroesophageal reflux disease) Hematoma of left thigh History of COVID-19 11/2020, pneumonia Hx MRSA infection Hx of chronic respiratory failure Hx of hypokalemia Hx of malignant neoplasm larynx and breast Hx of migraine headaches Hx of Raynaud's syndrome Hyperlipemia Hypertension Hypothyroidism Insomnia Muscle weakness Generalized On home oxygen therapy 2L via trach mask Osteoarthritis Pain of left lower extremity due to ischemia Tracheostomy in place 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 Family/Other Prostate cancer Sister , Passed age 64 of PA No problems noted. Sister No problems noted. Sister No problems noted. Sister No problems noted. Brother No problems noted. Son , Passed as child in MVA No problems noted. Son , Passed as child in MVA No problems noted. Son No problems noted. Son No problems noted. Daughter No problems noted. Social History Smoking Status: Unknown if ever smoked Cigarettes Per Day: 3 ppd, 40 pack year history, quit 2008; Hx Alcohol Use: No Hx Substance Use: No Preferred Language: Kyrgyz Communication Ability: Effective Visual Impairment: Limited Hearing Ability: Normal Implementation Specialist Payroll Required: No Beliefs That Will Affect Care: None marital status: Single Current Living Situation: Correction Current Living Situation Comment: centre care current occupational status: retired current occupation: Retired Other Information That Helps Us Care for You: No Feels Safe at Home: Yes Safety Concerns: Feels Safe At This Time caffeine: Yes (0-1 cup / day ) during the past year weight has: remained stable Assistive Devices: Wheelchair Review of Systems Review of Systems: Unobtainable due to cognitive status Physical Exam Constitutional: + thin and + frail appearing ENMT: tracheostomy Respiratory: normal respiratory effort; no labored breathing Gastrointestinal (Abdomen): Inspection/Auscultation: abdomen normal to inspection Musculoskeletal: large hematoma left thigh and groin Results & Data ([facility]) Vital Signs (Past 12 Hours) Vital Signs Temp Pulse Resp BP Pulse Ox O2 Del Method O2 Flow Rate 12/14/22 15:00 79/46 L 12/14/22 14:43 135/53 L 12/14/22 14:00 80/56 L 12/14/22 13:00 99.5 F 116 H 10 L 97/52 L 92 12/14/22 15:34 Trach Collar 6 12/14/22 15:00 117 H 12/14/22 08:00 110 H 12/14/22 12:00 100.0 F H 117 H 18 105/57 L 96 12/14/22 11:00 120 H 12/14/22 08:00 99.9 F H 120 H 14 102/69 99 Trach Collar 6 12/14/22 07:00 99.3 F 117 H 49 H 12/14/22 07:00 120 H 12/14/22 08:00 109 H 12/14/22 06:00 99.1 F 109 H 12 FiO2 12/14/22 15:00 12/14/22 14:43 12/14/22 14:00 12/14/22 13:00 12/14/22 15:34 30 12/14/22 15:00 12/14/22 08:00 12/14/22 12:00 12/14/22 11:00 12/14/22 08:00 30 12/14/22 07:00 12/14/22 07:00 12/14/22 08:00 12/14/22 06:00 PG Care Time/CCT Total # of Minutes Spent Total Time Spent: 80 Total Time Spent with Patient: Total time spent is greater than 50% in coordination of care (as documented) at patient's floor/unit and/or counseling patient:[id number] goals of care, code status, family education and support Coding Level of Care Code 43713 INT INP/OBS CARE 3/75MIN Diagnoses Pain of left lower extremity due to ischemia M79.605; I99.8 Palliative care encounter Z51.5
--- NOTE | 2022-12-14 16:39 | Hospitalist Progress Note ---
Date of Service December 14, 2022 Assessment & Plan (1) Fever: Plan: patient spiked a fever on 12/13 Source is uncertain, could be from the lower gangrenous digits Cultures were obtained, still pending Continue empiric IV cefepime (2) Dry gangrene: Plan: dry gangrenous lower extremity digits, secondary to limb ischemia, from sever PAD will consult podiatry for possible debridement (3) Postoperative hypovolemic shock: Plan: S/p angioplasty in the afternoon on 12/11, with complication of left thigh hematoma and rapid development of profound hypotension and decreased responsiveness Now resolved (4) Acute blood loss anemia: Plan: Suspect blood loss from intramuscular hematoma left rectus femoris, left iliacus and left thigh S/p 1 unit packed red blood cells 12/12, Hgb 9.1 following this - hold Aspirin/Plavix due to concern for active bleed - Aim Hgb > 8 for now. (5) PAD (peripheral artery disease): Plan: S/p angioplasty as stated above. - Vascular on consult - held ASA/Plavix as stated above due to suspected active bleed -Pain management also on consult, currently on MANAGER CLINICAL INFORMATICS (6) Fecal impaction: Plan: Possible contributing towards abdominal pain on exam although this may be hemorrhage as well Start MiraLax 17g BID and Senna/docusate 1 tab BID last BM was 5 days ago (7) Hypotension: Plan: BP soft again, will give a bouls of normal saline reduce the dose of Dilaudid MANAGER CLINICAL INFORMATICS (8) Acute encephalopathy: Plan: now resolved (9) Laryngeal cancer: Plan: S/p tracheostomy 10 years ago, with chronic trach collar. - continue supplemental O2 as needed to maintain sats 88-92% (COPD) (10) COPD (chronic obstructive pulmonary disease): Plan: Chronic, without wheezes on exam or evidence for acute exacerbation. - continue home inhalers when able (11) Anxiety: Plan: Continue BuSpar 15 mg p.o. twice daily (12) GERD (gastroesophageal reflux disease): Plan: Continue famotidine 20mg PO BID (13) Hypothyroidism: Plan: Continue levothyroxine 75 mcg PO daily (14) Tracheostomy present: Plan Plan was for center care, however, patient now on MANAGER CLINICAL INFORMATICS. Admission and Anticipated Discharge Date Admission Date: December 12, 2022 Subjective patient seen and examined, still some pain on the feet Review of Systems Review of Systems: All systems reviewed are negative, apart from the ones contained in the history. Physical Exam Physical Exam: The patient is awake, alert and oriented 3, well developed and well nourished, normocephalic and atraumatic, lying in bed and in no acute distress. HEENT--PERRL, EOMI, mucous membranes and oropharynx mildly dry Neck--trachestomy tube in situ. Heart--normal S1 and S2. No murmurs, rubs or gallops. Lungs--clear bilaterally, no respiratory distress, no accessory muscle use. Abdomen--normal bowel sounds and soft. Mild epigastric and left sided abdominal pain Extremities--mild contracture, gangrenous changes most digits Dermatologic--normal skin turgor, normal color, no abnormal lymph nodes, no rash. Neurologic--cranial nerves II through XII grossly intact. Rheumatologic--normal range of motion. Psychiatric--normal affect. Results & Data Results & Data ([facility]) Vital Signs (Past 12 Hours) Vital Signs Temp Pulse Resp BP Pulse Ox O2 Del Method O2 Flow Rate 12/14/22 15:00 79/46 L 12/14/22 14:43 135/53 L 12/14/22 14:00 80/56 L 12/14/22 13:00 99.5 F 116 H 10 L 97/52 L 92 12/14/22 15:34 Trach Collar 6 12/14/22 15:00 117 H 12/14/22 08:00 110 H 12/14/22 12:00 100.0 F H 117 H 18 105/57 L 96 12/14/22 11:00 120 H 12/14/22 08:00 99.9 F H 120 H 14 102/69 99 Trach Collar 6 12/14/22 07:00 99.3 F 117 H 49 H 12/14/22 07:00 120 H 12/14/22 08:00 109 H 12/14/22 06:00 99.1 F 109 H 12 FiO2 12/14/22 15:00 12/14/22 14:43 12/14/22 14:00 12/14/22 13:00 12/14/22 15:34 30 12/14/22 15:00 12/14/22 08:00 12/14/22 12:00 12/14/22 11:00 12/14/22 08:00 30 12/14/22 07:00 12/14/22 07:00 12/14/22 08:00 12/14/22 06:00 PG Care Time/CCT Total # of Minutes Spent Total Time Spent with Patient: Total time spent is greater than 50% in coordination of care (as documented) at patient's floor/unit and/or counseling patient: Coding Level of Care Code 12220 SUB INP/OBS CARE 2/35MIN Diagnoses Fever R50.9 Dry gangrene I96 Postoperative hypovolemic shock T81.19XA Encounter type: initial encounter Acute blood loss anemia D62 PAD (peripheral artery disease) I73.9 Fecal impaction K56.41 Hypotension I95.9 Acute encephalopathy G93.40 Laryngeal cancer C32.9 COPD (chronic obstructive pulmonary disease) J43.9 COPD type: emphysema Emphysema type: unspecified Anxiety F41.9 GERD (gastroesophageal reflux disease) K21.9 Esophagitis presence: esophagitis presence not specified Hypothyroidism E03.9 Hypothyroidism type: unspecified Tracheostomy present Z93.0 Time Spent (min) 35 (1) Postoperative hypovolemic shock Encounter type: initial encounter Qualified Code(s): T81.19XA - Other postprocedural shock, initial encounter (2) COPD (chronic obstructive pulmonary disease) COPD type: emphysema Emphysema type: unspecified Qualified Code(s): J43.9 - Emphysema, unspecified (3) GERD (gastroesophageal reflux disease) Esophagitis presence: esophagitis presence not specified Qualified Code(s): K21.9 - Gastro-esophageal reflux disease without esophagitis (4) Hypothyroidism Hypothyroidism type: unspecified Qualified Code(s): E03.9 - Hypothyroidism, unspecified
[2022-12-14] MEDS: SODIUM CHLORIDE 0.9% 1000ML 1,000 ML IV SCH (18:01)
--- NOTE | 2022-12-14 18:26 | XRay Report ---
XR chest 1V portable HISTORY: 72 years-old Female SOB low BP acute shortness of breath COMPARISON: Chest radiograph December 13, 2019. TECHNIQUE: AP view of the chest FINDINGS: Right subclavian central venous catheter is unchanged. Cardiac mediastinal and hilar silhouettes are within normal limits. Surgical clips of the neck. No pneumothorax, large pleural effusion or lobar ai rspace consolidation. Emphysema with chronic interstitial coarsening. IMPRESSION: Emphysema with chronic interstitial coarsening. ACT 112: Negative or not required by law. The above report was generated using voice recognition software. It may contain grammatical, syntax o r spelling errors. Electronically signed by: Lucian Limon M.D. 12/14/2022 6:24 PM
--- NOTE | 2022-12-14 21:54 | Orthopedic Consultation ---
Date of Consultation December 14, 2022 Assessment & Plan (1) Dry gangrene: Patient seen, evaluated, and treated. I examined the Patient for left foot ulcers that have been resistant to healing. Wounds appear stable during today's examination however perfusion still appears limited. X-ray views of left foot ordered for further evaluation. (2) Pain of left lower extremity due to ischemia: (3) PAD (peripheral artery disease): History of Present Illness Attending Physician: Cameron Verduzco MD History of Present Illness Patient is a 72 year old female see in ICU at bedside for multiple left toe ulcers. Patient is able to answer some questions but history and previous care has been obtained by prior documentation. Patient has PMH of PVD, COPD, anxiety, chronic pain, hypertension and laryngeal cancer, s/p tracheostomy. Patient has been a resident at [facility] for the last 13 years. Patient was admitted to the ICU after significant hypotension after a revascularization procedure. Patient has a large left thigh hematoma and has received 2 U of PRBCs. She is not currently requiring vasopressor support and is awake and alert. Patient continues to have ischemia of her left foot. 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 Allergies Allergy/AdvReac Type Severity Reaction Status Date / Time alendronate sodium Allergy Unknown ON CENTRE Verified 12/04/22 10:03 CREST MED LIST penicillin V Allergy Unknown ON CENTRE Verified 12/04/22 10:03 CREST MED LIST sulfadiazine Allergy Unknown ON CENTRE Verified 12/04/22 10:03 CREST MED LIST Home Medications Medication Instructions Recorded Confirmed Type aspirin 81 mg chewable tablet 81 mg PO QAM 07/29/19 12/11/22 History simethicone 80 mg chewable tablet 80 mg PO QID 07/30/19 12/11/22 History (Gas Relief 80 (simethicone)) furosemide 20 mg tablet 20 mg PO QAM 12/31/19 12/11/22 History metoprolol tartrate 50 mg tablet 50 mg PO BID 12/31/19 12/11/22 History famotidine 20 mg tablet 20 mg PO BID 04/09/20 12/11/22 History ferrous sulfate 325 mg (65 mg 325 mg PO QAM 04/09/20 12/11/22 History iron) tablet pantoprazole 40 mg tablet,delayed 40 mg PO QAM 04/09/20 12/11/22 History release (Protonix) multivitamin 1 tab PO QAM 05/13/20 12/11/22 History budesonide 180 mcg/actuation 1 inh inhalation Q12H PRN 09/29/20 12/11/22 History breath activated powder inhaler Shortness Of Breath (Pulmicort Flexhaler) lasmiditan 100 mg tablet (Reyvow) 100 mg PO Q24H PRN migraines 09/29/20 12/11/22 History cyanocobalamin (vitamin B-12) 1,000 mcg PO QAM 01/20/21 12/11/22 History 1,000 mcg capsule buspirone 15 mg tablet 15 mg PO BID 04/21/21 12/11/22 History ipratropium 0.5 mg-albuterol 3 mg 3 ml inhalation Q4H PRN Shortness 04/21/21 12/11/22 History (2.5 mg base)/3 mL nebulization Of Breath soln amlodipine 2.5 mg tablet 2.5 mg PO QAM 08/02/21 12/11/22 History diphenhydramine HCl 12.5 mg/5 mL 50 mg PO TID 08/02/21 12/11/22 History oral elixir levothyroxine 75 mcg tablet 75 mcg PO QAM 08/02/21 12/11/22 History lorazepam 0.5 mg tablet 0.5 mg PO BID 08/02/21 12/11/22 History venlafaxine 75 mg tablet 75 mg PO BID 08/02/21 12/11/22 History acetaminophen 500 mg tablet 1,000 mg PO UD PRN Pain (Scale 09/30/21 12/11/22 History (Tylenol Extra Strength) Score 7-10) bismuth subsalicylate 262 mg/15 mL 524 mg PO Q6H PRN DIARRHEA/NAUSEA 09/30/21 0 12/11/22 History oral suspension (Pepto-Bismol) docosanol 10 % topical cream 1 applic topical 5XD PRN Cold Sores 09/30/21 12/11/22 History (Abreva) ondansetron HCl 4 mg tablet 4 mg PO Q8H PRN nausea/vomiting 09/30/21 12/11/22 History (Zofran) gabapentin 100 mg capsule 200 mg PO BID 07/14/22 12/11/22 History guaifenesin 100 mg/5 mL oral liquid 200 mg PO Q6H PRN Cough 07/14/22 12/11/22 History topiramate 50 mg tablet 50 mg PO BID 30 days #60 tabs 07/14/22 12/11/22 Rx Menthol-Ascorbic Acid Lozenge 1 flo PO Q4H PRN Sore Throat 07/20/22 12/11/22 History aluminum-mag hydroxide-simethicone 30 ml PO Q8H PRN Acid Reflux 07/20/22 12/11/22 History 225 mg-200 mg-25 mg/5 mL oral susp bisacodyl 10 mg rectal suppository 10 mg UT QPM PRN Constipation 07/20/22 12/11/22 History (Dulcolax (bisacodyl)) erenumab-aooe 140 mg/mL 140 mg subcut Q30D 07/20/22 12/11/22 History subcutaneous auto-injector magnesium hydroxide 800 mg/5 mL 30 mg PO UD PRN Constipation 07/20/22 12/11/22 History oral suspension peg 400-propylene glycol (PF) 0.4 1 drp ophthalmic (eye) Q8H PRN Dry 07/20/22 12/11/22 History %-0.3 % eye drops in a dropperette Eyes (Systane (PF)) sodium phosphates 19 gram-7 197 ml UT QAM PRN Constipation 07/20/22 12/11/22 History gram/118 mL enema (Fleet Enema) sucralfate 1 gram tablet 1 g PO BID 07/20/22 12/11/22 History Patient History Medical History Anemia Cancer Hx breast, lung and laryngeal cancer (larynx radiation, laryngectomy 2008) Chronic pain syndrome Chronic respiratory failure Constipation COPD (chronic obstructive pulmonary disease) Depression with anxiety Dysphagia Elevated hemidiaphragm GERD (gastroesophageal reflux disease) Hematoma of left thigh History of COVID-19 11/2020, pneumonia Hx MRSA infection Hx of chronic respiratory failure Hx of hypokalemia Hx of malignant neoplasm larynx and breast Hx of migraine headaches Hx of Raynaud's syndrome Hyperlipemia Hypertension Hypothyroidism Insomnia Muscle weakness Generalized On home oxygen therapy 2L via trach mask Osteoarthritis Pain of left lower extremity due to ischemia Tracheostomy in place Vitamin A 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 Family/Other Prostate cancer Sister , Passed age 64 of ID No problems noted. Sister No problems noted. Sister No problems noted. Sister No problems noted. Brother No problems noted. Son , Passed as child in MVA No problems noted. Son , Passed as child in MVA No problems noted. Son No problems noted. Son No problems noted. Daughter No problems noted. Social History Smoking Status: Unknown if ever smoked Cigarettes Per Day: 3 ppd, 40 pack year history, quit 2008; Hx Alcohol Use: No Hx Substance Use: No Preferred Language: Icelandic Communication Ability: Effective Visual Impairment: Limited Hearing Ability: Normal Production Specialist Required: No Beliefs That Will Affect Care: None marital status: Single Current Living Situation: Long Term Current Living Situation Comment: [facility] current occupational status: retired current occupation: Retired Other Information That Helps Us Care for You: No Feels Safe at Home: Yes Safety Concerns: Feels Safe At This Time caffeine: Yes (0-1 cup / day ) during the past year weight has: remained stable Assistive Devices: Wheelchair Results & Data ([facility]) Vital Signs (Past 12 Hours) Vital Signs Temp Pulse Pulse Resp BP BP Pulse Ox 12/14/22 20:43 12/14/22 19:00 37.6 C H 116 H 116 H 12 136/74 100 12/14/22 18:00 37.1 C 102 H 15 100 12/14/22 18:00 86/51 L 12/14/22 17:43 37.1 C 98 H 13 77/50 L 100 12/14/22 16:00 36.8 C 83 13 93/47 L 100 12/14/22 16:00 117 H 12/14/22 15:00 79/46 L 12/14/22 14:43 135/53 L 12/14/22 14:00 80/56 L 12/14/22 13:00 37.5 C 116 H 10 L 97/52 L 92 12/14/22 15:34 12/14/22 15:00 117 H 12/14/22 12:00 37.8 C H 117 H 18 105/57 L 96 12/14/22 11:00 120 H O2 Del Method O2 Flow Rate FiO2 12/14/22 20:43 Trach Collar 8 40 12/14/22 19:00 Trach Collar 8 40 12/14/22 18:00 12/14/22 18:00 12/14/22 17:43 12/14/22 16:00 12/14/22 16:00 12/14/22 15:00 12/14/22 14:43 12/14/22 14:00 12/14/22 13:00 12/14/22 15:34 Trach Collar 6 30 12/14/22 15:00 12/14/22 12:00 12/14/22 11:00
[2022-12-15] MEDS: SODIUM CHLORIDE 0.9% 1000ML 1,000 ML IV SCH ×4 (03:44→23:31)
[2022-12-15 04:24] LABS: Basophils # (auto) 0.02 K/uL (0-0.2); Basophils % (auto) 0.2 %; Eosinophils # (auto) 0.43 K/uL (0-0.50); Eosinophils % (auto) 4.7 %; Hematocrit (blood only) 26.6 % (37.0-47.0); Hemoglobin 8.4 g/dl (12.0-16.0); Immature Granulocytes # (auto) 0.03 K/uL (0.01-0.20); Immature Granulocytes % (auto) 0.3 %; Lymphocytes % (auto) 16.5 %; Mean Corpuscular Hemoglobin 29.2 pg (25.0-34.0); Mean Corpuscular Hgb Conc 31.6 g/dL (32.0-36.0); Mean Corpuscular Volume 92.4 fL (80.0-100.0); Mean Platelet Volume 9.4 fL (9.4-12.4); Monocytes # (auto) 0.78 K/uL (0.11-0.59); Monocytes % (auto) 8.6 %; Neutrophils # (auto) 6.35 K/uL (1.40-6.50); Neutrophils % (auto) 69.7 %; Platelet Count 134 K/uL (130-400); RDW Coefficient of Variation 14.2 % (11.5-14.5); RDW Standard Deviation 47.7 fL (36.4-46.3); Red Blood Count 2.88 M/uL (4.20-5.40); White Blood Count 9.11 K/ul (4.8-10.8)
[2022-12-15 04:45] LABS: Albumin Globulin Ratio 1.1 (0.9-2); Albumin Level 2.7 gm/dl (3.4-5.0); BUN Creatinine Ratio 13.2 (10-20); Bilirubin,Total 0.4 mg/dl (0.2-1.0); Calcium 8.1 mg/dl (8.5-10.1); Creatinine Clr Calc Pharmacy 42.3 ml/min; Est GFR (African American) 91.5 ml/min; Est GFR (Non-African American) 78.9 ml/min; Globulin 2.4 gm/dl (2.5-4.0); Potassium 3.7 mmol/L (3.5-5.1); Total Protein 5.1 gm/dl (6.0-8.3)
[2022-12-15] MEDS: LEVOTHYROXINE SODIUM 75 MCG TABLET PO SCH (05:46)
--- NOTE | 2022-12-15 07:50 | CT Scan Report ---
CT OF THE ABDOMEN AND PELVIS WITHOUT CONTRAST CLINICAL HISTORY: follow up COMPARISON STUDY: CT of the abdomen and pelvis December 11, 2022. TECHNIQUE: Axial images of the abdomen and pelvis were obtained without IV contrast. Images were revi ewed in the axial, sagittal, and coronal planes. Automated exposure control was utilized for the rangel dy. A dose lowering technique was utilized adhering to the principles of ALARA. FINDINGS: There are trace bilateral pleural effusions. No pneumatosis, free air or portal venous gas is present. Evaluation of the abdomen and pelvis is suboptimal on this unenhanced examination. Mild d ilatation of the common bile duct is unchanged. This is likely related to cholecystectomy. There is n o hydronephrosis. Water attenuation right renal lesion is suboptimally assessed on this unenhanced ex am but favors a cyst. Large amount stool within the rectum is again noted. There is trace fluid withi n the pelvis. There is no evidence for a bowel obstruction. A Freedman balloon within the bladder is not ed. Body wall edema has increased. Hemorrhage within the left thigh has decreased since CT of December 11, 2022. Intramuscular hemorrhage within the visualized portion of the left rectus femoris is also diminished. Intramuscular hemorrhage within the left iliacus muscle has diminished. No new sites of h emorrhage are identified within the abdomen or the pelvis. There are no acute fractures. There is no lymphadenopathy. IMPRESSION: 1. Interval decrease in hemorrhage within the left thigh and intramuscular hemorrhage within the left iliacus and left rectus femoris muscle since CT of December 11, 2022. No new sites of hemorrhage with in the abdomen or pelvis. 2. Large amount of stool within the rectum similar to prior exam. 3. No bowel obstruction. 4. Trace ascites. Body wall edema. ACT 112: Negative or not required by law. Electronically signed by: Aneesh Carney M.D. 12/15/2022 7:49 AM
[2022-12-15] MEDS ORDERED: bisacodyL 10 MG SUPP PR STA (07:56)
[2022-12-15] MEDS: POLYETHYLENE (MIRALAX) 17 GM PACK PO SCH ×2 (08:19→19:42)
[2022-12-15] MEDS: VENLAFAXINE HCL 37.5 MG TAB PO SCH ×2 (08:19→19:42)
[2022-12-15] MEDS: FAMOTIDINE 20 MG TAB PO SCH ×2 (08:19→19:39)
[2022-12-15] MEDS: busPIRone 15 MG TAB PO SCH ×2 (08:19→19:40)
[2022-12-15] MEDS: amLODIPine BESYLATE 5 MG TAB PO SCH (08:20)
[2022-12-15] MEDS: FERROUS SULFATE 325 MG/7.4 ML UDP PO SCH (08:20)
[2022-12-15] MEDS: CLOPIDOGREL BISULFATE 75 MG TAB PO SCH (08:20)
[2022-12-15] MEDS: ASPIRIN 81 MG ECTAB PO SCH (08:20)
[2022-12-15] MEDS: MULTI VIT W/MINERALS LIQUID 15 ML UDP PO SCH (08:20)
[2022-12-15] MEDS: CYANOCOBALAMIN (B-12) 500 MCG TABLET PO SCH (08:20)
[2022-12-15] MEDS: DOCUSATE SODIUM/SENNA 50/8.6MG TAB PO SCH ×2 (08:21→19:40)
[2022-12-15] MEDS: GABAPENTIN 250 MG/5 ML 470 ML BTL PO SCH ×2 (08:22→19:53)
--- NOTE | 2022-12-15 09:26 | XRay Report ---
XR foot LT 2V CLINICAL HISTORY: Left foot multiple toe ulcers. COMPARISON: None FINDINGS: Tarsometatarsal joints are intact. There is no acute fracture within the left foot. There is no definite evidence for acute osteomyelitis although evaluation of the toes is difficult given ch ronic deformities and difficulty positioning. Suspected wound of the distal left first toe is noted. Equivocal erosion of the distal tuft of the left first distal phalanx is noted. Mild degenerative marycruz nges are noted within multiple articulations. IMPRESSION: 1. Equivocal erosion of the distal tuft of the distal phalanx of the left first toe. This may be herbologist melinda however acute osteomyelitis cannot be excluded. 2. No additional erosions identified although evaluation is difficult given chronic deformity of the toes. ACT 112: Negative or not required by law. Electronically signed by: Aneesh Carney M.D. 12/15/2022 9:23 AM
[2022-12-15] MEDS: TOPIRAMATE 50 MG TAB PO SCH ×2 (10:58→23:34)
[2022-12-15] MEDS: CEFEPIME 2,000 MG in SYRINGE 0 ML IV SCH ×2 (11:07→23:31)
--- NOTE | 2022-12-15 13:30 | Vascular Medicine ProgressNote ---
Date of Service December 15, 2022 Assessment & Plan (1) PAD (peripheral artery disease): Plan: Left foot critical limb ischemia -- Post left RICE CLEANING MACHINE TENDER angioplasty. Diffuse residual multi-level disease History of Raynaud's 2. Post procedure shock -- resolved 3. Acute blood loss anemia/left thigh hematoma -- post 2uPRBC 4. History of laryngeal cancer post laryngectomy 2009 with tracheostomy 5. Chronic pain 6. COPD 7. Low grade fever -- CXR clear, WBC trending up today, blood cultures pending 8. Post cath RT Radial artery occlusion Labile blood pressures overnight. Hb down-trending. No active bleeding Afebrile today. WBC trending down. LLE perfusion still limited but does have DP dopplerable pulse today RT hand appears better perfused today. Will attempt to obtain CTA of LLE to reassess anatomy. PT previously refused. -- Further revascularization recs pending CTA findings. Options limited with comorbidities/frailty and access issues. Continue aspirin, clopidogrel for now. If Hb continues to trend down can stop clopidogrel. Target Hgb >8. -- Hold amlodipine if BPs continue to be low. Follow-up blood cultures, p.o. antibiotics per hospital medicine Hopeful conversion to oral pain medicines Admission and Anticipated Discharge Date Admission Date: December 12, 2022 Subjective Still reports some pain in LT leg, numbness in RT arm. Still on [employer] SU[employer] PLANNER Minimal appetite. Intermittently hypotensive yesterday. Hb downtrending. Repeat CT A/P showed no RP bleed and resolving hematoma. Low grade fevers and elevated WBC. BCx's NGTD. Started on Cefepime. Tele reviewed - sinus tachy, no events. Review of Systems Review of Systems: All systems reviewed & are unremarkable except as noted in HPI & below Physical Exam Physical Exam: General: Thin, frail. resting comfortably initially. in pain with light touch of LLE Eyes: Sclerae anicteric HENT: O2 mask over tracheostomy Lungs: Coarse breath sounds Cardiac: Tachycardic, regular, no murmurs Abdomen: Soft Psych: Alert orient x3, normal affect and mood Extremities/Vascular: -- Nonpalpable right radial pulse. small hematoma surrounding access site. Mild ecchymosis extending around elbow. -- Improved RT hand discoloration from prior Sluggish capillary refill more so in the first second third digits then fourth and fifth. Purplish discoloration of digits on left hand improved. Nonpalpable left radial pulse. --Faint DP on right. Sluggish capillary refill -- Nonpalpable DP/PT pulses on left. Dopplerable today. LT foot pink from mid foot to toes. . Superficial ulcers with scaling over dorsal aspect of toes. Black eschar involving plantar aspects of 1-5 toes at MTP joint. Ecchymosis left upper thigh extending over inguinal crease and to lateral flank, tender. Results & Data ([facility]) Vital Signs (Past 12 Hours) Vital Signs Temp Pulse Resp BP Pulse Ox O2 Del Method O2 Flow Rate 12/15/22 12:00 99.0 F 113 H 21 110/70 99 12/15/22 11:15 Trach Collar 8 12/15/22 11:00 103 H 12/15/22 08:00 104 H 12/15/22 07:00 103 H 12/15/22 09:00 98.8 F 103 H 9 L 100 12/15/22 09:00 85/51 L 12/15/22 08:00 98.8 F 115 H 20 134/76 100 Trach Collar 8 12/15/22 07:00 98.8 F 106 H 9 L 100 12/15/22 07:00 115/57 L 12/15/22 06:00 98.6 F 101 H 8 L 98 12/15/22 06:00 107/56 L 12/15/22 05:00 105/48 L 12/15/22 05:00 98.6 F 102 H 13 98 12/15/22 04:00 98.4 F 99 H 15 99 12/15/22 04:00 98/56 L 12/15/22 03:53 106/53 L 12/15/22 03:53 98.4 F 99 H 15 100 12/15/22 02:00 99.0 F 98 H 14 12/15/22 02:00 78/56 L 12/15/22 03:00 98 H FiO2 12/15/22 12:00 12/15/22 11:15 40 12/15/22 11:00 12/15/22 08:00 12/15/22 07:00 12/15/22 09:00 12/15/22 09:00 12/15/22 08:00 40 12/15/22 07:00 12/15/22 07:00 12/15/22 06:00 12/15/22 06:00 12/15/22 05:00 12/15/22 05:00 12/15/22 04:00 12/15/22 04:00 12/15/22 03:53 12/15/22 03:53 12/15/22 02:00 12/15/22 02:00 12/15/22 03:00 PG Care Time/CCT Total # of Minutes Spent Total Time Spent with Patient: Total time spent is greater than 50% in coordination of care (as documented) at patient's floor/unit and/or counseling patient: Coding Level of Care Code 61128 SUB INP/OBS CARE 3/50MIN Diagnoses PAD (peripheral artery disease) I73.9
[2022-12-15] MEDS ORDERED: LORazepam 2 MG/1 ML VIAL IV ONE (13:46)
[2022-12-15] MEDS ORDERED: OPTIRAY 320 500ml IV ONE (15:02)
--- NOTE | 2022-12-15 15:24 | CT Scan Report ---
CT ANGIOGRAM OF THE ABDOMEN AND PELVIS WITH BILATERAL LOWER EXTREMITY RUNOFF CLINICAL HISTORY: Limb ischemia. COMPARISON STUDY: Abdominal CT scans dated 12/14/2022 and 04/25/2020. TECHNIQUE: Following the IV administration of 112 cc of Optiray 320, CT angiogram of the abdomen and pelvis with bilateral lower externally runoff was performed from the lung bases to the feet. Images a re reviewed in the axial, sagittal, and coronal planes. 3-D MIPS images are created and assessed. IV contrast was administered without complication. A dose lowering technique was utilized adhering to t he principles of ALARA. CT DOSE: 760.86 mGy.cm FINDINGS: Lower chest: The tip of a central venous catheter terminates at the cavoatrial junction. The heart is normal in size and without pericardial effusion. Emphysematous change is noted. There is volume loss in the right lung. There are trace pleural effusions with dependent scarring/atelectasis. Liver: The contrast-enhanced liver is normal in size and heterogeneous in attenuation. There is minim al central intrahepatic biliary ductal dilatation. The hepatic veins and portal veins are patent. Gallbladder: Surgically absent noting clips in the gallbladder fossa. Spleen: Normal in size and attenuation There is heterogeneous arterial phase enhancement. Numerous sp lenic hypodensities are similar to prior studies. Pancreas: Moderately atrophic and grossly unremarkable. Adrenal glands: Unremarkable. Kidneys: The contrast since kidneys demonstrate cortical atrophy and are without hydronephrosis. The kidneys enhance symmetrically. A 1.6 cm cyst is noted on the right. Abdominal aorta and iliac arteries: There is advanced atherosclerotic calcification and irregularity seen throughout the abdominal aorta. Abdominal aorta is normal in caliber and widely patent. No disse ction is seen. 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 This is unchanged from 2020. The right internal and external awais ac arteries are diminutive but patent noting advanced atherosclerotic plaque and irregularity. There is advanced atherosclerotic plaque throughout the left common iliac artery with diffuse moderate sten osis. The left internal and external iliac arteries are patent noting advanced atherosclerotic plaque and irregularity and diffuse moderate stenosis. Major branches of the abdominal aorta: The celiac trunk, superior mesenteric, and inferior mesenteric arteries are widely patent. Hepatic arterial anatomy is conventional. The splenic artery is patent. Single bilateral renal arteries are widely patent. Right lower extremity runoff: The right common femoral artery is patent, as is the right profunda fem johnny artery. The right superficial femoral artery an popliteal artery are diminutive but patent notin g advanced atherosclerotic plaque and irregularity. The calf arteries are diminutive. There is two-ve ssel runoff to the foot. The posterior tibial artery is diminutive with only thready flow. There is n o contrast within the posterior tibial artery beyond the mid calf. The medial foot is supplied by a b ranch of the peroneal artery. There is trace flow within the right dorsalis pedis. Left lower extremity runoff: The left common femoral artery is diminutive but patent noting advanced atherosclerotic plaque and irregularity. The left profunda femoris artery is patent. Advanced atheros clerotic plaque and irregularity seen throughout the left superficial femoral artery with extensive m oderate to high-grade stenosis. There is near complete occlusion proximally seen on axial image #345. There is a short segment of near complete occlusion in the midportion seen on image #485. The poplit eal artery is diminutive but patent noting advanced atherosclerotic plaque. There is two-vessel runof f to the foot. The anterior tibial artery and peroneal arteries are patent. The posterior tibial devan ry is diminutive and patent proximally. The medial ankle is supplied by a branch of the peroneal devan ry. The vessels. This is patent. Bowel: There is rectosigmoid fecal impaction and mild constipation. There is mild rectal wall thicken ing with surrounding infiltration and fluid. No bowel obstruction is seen. There is laxity of the hitesh tral abdominal wall with diastases of the rectus musculature and protrusion of bowel loops. The colon is redundant. The cecum is located in the left upper quadrant. The appendix is well-visualized and normal. Peritoneum: No intraperitoneal free air is identified. Free fluid is noted in the pelvis. There is ev idence of previous ventral hernia repair. Lymphadenopathy: None. Pelvic viscera: The bladder is partially decompressed around a Freedman catheter. The uterus and adnexa are normal as visualized. Skeletal structures: The skeletal structures are heterogeneously osteopenic. There is mild lumbosacra l spondylosis. No destructive bony lesions are seen. Lower extremity soft tissues: There is asymmetric soft tissue edema identified in the left thigh as w ell as the left foot/ankle as compared to the right. No soft tissue gas is seen in the lower extremit ies. IMPRESSION: 1. There is rectosigmoid fecal impaction with mild rectal wall thickening and surrounding inflammatio n and fluid. Correlate clinically for evidence of stercoral proctitis. 2. Emphysema. 3. Advanced atherosclerotic disease is seen throughout the abdominal aorta and its major branches. Th e aorta is patent and normal in caliber. 4. 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 This is unchanged from a 2020 examination. 5. Advanced peripheral vascular disease is seen in both legs with two-vessel runoff to the foot. See above for detailed discussion. 6. There is asymmetric soft tissue edema identified in the left thigh as well as the left foot/ankle. 7. Trace pleural effusions. 8. Additional findings as above. ACT 112: Negative or not required by law. Electronically signed by: Kam Adames M.D. 12/15/2022 3:23 PM
--- NOTE | 2022-12-15 16:03 | Hospitalist Progress Note ---
Date of Service December 15, 2022 Assessment & Plan (1) Fever: Plan: patient spiked a fever on 12/13 Source is uncertain, could be from the lower extremity digits wounds Cultures were obtained, still pending Continue empiric IV cefepime (2) Dry gangrene: Plan: Mostly non healing wound lower extremity digits, secondary to limb ischemia, from sever PAD Foot x ray suggests some small erosion concerning for osteomyelitis Podiatry on consult (3) Postoperative hypovolemic shock: Plan: S/p angioplasty in the afternoon on 12/11, with complication of left thigh hematoma and rapid development of profound hypotension and decreased responsiveness Now resolved (4) Acute blood loss anemia: Plan: Suspect blood loss from intramuscular hematoma left rectus femoris, left iliacus and left thigh S/p 1 unit packed red blood cells 12/12, Hb stable Repeat imaging shows improving hematoma (5) PAD (peripheral artery disease): Plan: S/p angioplasty as stated above. -CTA shows diffuse artherosclerotic disease and complete thrombosis of the right common iliac artery with reconstitution at the bifurcation. This is unchanged from a 2019 examination - Vascular on consult - Continue ASA/Plavix -Pain management also on consult, currently on FABRICATION SUPERVISOR (6) Fecal impaction: Plan: Possible contributing towards abdominal pain on exam although this may be hemorrhage as well Start MiraLax 17g BID and Senna/docusate 1 tab BID last BM was 6 days ago Consult GI (7) Hypotension: Plan: BP soft again, will give a bouls of normal saline reduce the dose of Dilaudid FABRICATION SUPERVISOR (8) Acute encephalopathy: Plan: now resolved (9) Laryngeal cancer: Plan: S/p tracheostomy 10 years ago, with chronic trach collar. - continue supplemental O2 as needed to maintain sats 88-92% (COPD) -Continue trach care (10) Hematoma of left thigh: Plan: Some improvement on repeat imaging (11) COPD (chronic obstructive pulmonary disease): Plan: Chronic, without wheezes on exam or evidence for acute exacerbation. - continue home inhalers when able (12) Anxiety: Plan: Continue BuSpar 15 mg p.o. twice daily (13) GERD (gastroesophageal reflux disease): Plan: Continue famotidine 20mg PO BID (14) Hypothyroidism: Plan: Continue levothyroxine 75 mcg PO daily (15) Tracheostomy present: Plan Plan was for center care, however, patient now on FABRICATION SUPERVISOR. Admission and Anticipated Discharge Date Admission Date: December 12, 2022 Subjective patient seen and examined, still on pain FABRICATION SUPERVISOR, intermittent suctioning of her tach Review of Systems Review of Systems: All systems reviewed are negative, apart from the ones contained in the history. Physical Exam Physical Exam: The patient is awake, alert and oriented 3, well developed and well nourished, normocephalic and atraumatic, lying in bed and in no acute distress. HEENT--PERRL, EOMI, mucous membranes and oropharynx mildly dry Neck--trachestomy tube in situ. Heart--normal S1 and S2. No murmurs, rubs or gallops. Lungs--clear bilaterally, no respiratory distress, no accessory muscle use. Abdomen--normal bowel sounds and soft. Mild epigastric and left sided abdominal pain Extremities--mild contracture, gangrenous changes most digits Dermatologic--normal skin turgor, normal color, no abnormal lymph nodes, no rash. Neurologic--cranial nerves II through XII grossly intact. Rheumatologic--normal range of motion. Psychiatric--normal affect. Results & Data Results & Data ([facility]) Vital Signs (Past 12 Hours) Vital Signs Temp Pulse Resp BP Pulse Ox O2 Del Method O2 Flow Rate 12/15/22 12:00 99.0 F 113 H 21 110/70 99 12/15/22 11:15 Trach Collar 8 12/15/22 11:00 103 H 12/15/22 08:00 104 H 12/15/22 07:00 103 H 12/15/22 09:00 98.8 F 103 H 9 L 100 12/15/22 09:00 85/51 L 12/15/22 08:00 98.8 F 115 H 20 134/76 100 Trach Collar 8 12/15/22 07:00 98.8 F 106 H 9 L 100 12/15/22 07:00 115/57 L 12/15/22 06:00 98.6 F 101 H 8 L 98 12/15/22 06:00 107/56 L 12/15/22 05:00 105/48 L 12/15/22 05:00 98.6 F 102 H 13 98 12/15/22 04:00 98.4 F 99 H 15 99 12/15/22 04:00 98/56 L FiO2 12/15/22 12:00 12/15/22 11:15 40 12/15/22 11:00 12/15/22 08:00 12/15/22 07:00 12/15/22 09:00 12/15/22 09:00 12/15/22 08:00 40 12/15/22 07:00 12/15/22 07:00 12/15/22 06:00 12/15/22 06:00 12/15/22 05:00 12/15/22 05:00 12/15/22 04:00 12/15/22 04:00 PG Care Time/CCT Total # of Minutes Spent Total Time Spent with Patient: Total time spent is greater than 50% in coordination of care (as documented) at patient's floor/unit and/or counseling patient: Coding Level of Care Code 65986 SUB INP/OBS CARE 2/35MIN Diagnoses Fever R50.9 Dry gangrene I96 Postoperative hypovolemic shock T81.19XA Encounter type: initial encounter Acute blood loss anemia D62 PAD (peripheral artery disease) I73.9 Fecal impaction K56.41 Hypotension I95.9 Acute encephalopathy G93.40 Laryngeal cancer C32.9 Hematoma of left thigh S70.12XA COPD (chronic obstructive pulmonary disease) J43.9 COPD type: emphysema Emphysema type: unspecified Anxiety F41.9 GERD (gastroesophageal reflux disease) K21.9 Esophagitis presence: esophagitis presence not specified Hypothyroidism E03.9 Hypothyroidism type: unspecified Tracheostomy present Z93.0 Time Spent (min) 35 (1) Postoperative hypovolemic shock Encounter type: initial encounter Qualified Code(s): T81.19XA - Other postprocedural shock, initial encounter (2) COPD (chronic obstructive pulmonary disease) COPD type: emphysema Emphysema type: unspecified Qualified Code(s): J43.9 - Emphysema, unspecified (3) GERD (gastroesophageal reflux disease) Esophagitis presence: esophagitis presence not specified Qualified Code(s): K21.9 - Gastro-esophageal reflux disease without esophagitis (4) Hypothyroidism Hypothyroidism type: unspecified Qualified Code(s): E03.9 - Hypothyroidism, unspecified
--- NOTE | 2022-12-15 21:01 | Orthopedic Progress Note ---
Date of Service December 15, 2022 Assessment & Plan (1) Dry gangrene: Plan: Patient seen, evaluated, and treated. I examined the Patient for left foot ulcers that have been resistant to healing. Wounds continue to appear stable during today's examination. Perfusion still appears limited. X-ray views of left foot reviewed showing possible OM. Will continue to follow for possible demarcation of viable versus nonviable tissue. . (2) Pain of left lower extremity due to ischemia: (3) PAD (peripheral artery disease): Admission and Anticipated Discharge Date Admission Date: December 12, 2022 Subjective Patient seen at bedside resting comfortably. Review of Systems Review of Systems: All systems reviewed & are unremarkable except as noted in HPI & below Physical Exam Physical Exam: HEENT--PERRL, EOMI, mucous membranes and oropharynx mildly dry Neck--trachestomy tube in situ. Heart--normal S1 and S2. No murmurs, rubs or gallops. Lungs--clear bilaterally, no respiratory distress, no accessory muscle use. Abdomen--normal bowel sounds and soft. Mild epigastric and left sided abdominal pain Extremities--mild contracture, gangrenous changes most digits Dermatologic--normal skin turgor, normal color, no abnormal lymph nodes, no rash. Neurologic--cranial nerves II through XII grossly intact. Rheumatologic--normal range of motion. Psychiatric--normal affect. Results & Data ([facility]) Vital Signs (Past 12 Hours) Vital Signs Temp Pulse Resp BP Pulse Ox O2 Del Method O2 Flow Rate 12/15/22 20:00 37.6 C H 118 H 16 99 12/15/22 20:00 112/62 12/15/22 19:00 103/53 L 12/15/22 19:00 37.5 C 105 H 11 L 99 12/15/22 18:00 102/58 L 12/15/22 20:25 108 H 12/15/22 20:11 Trach Collar 8 12/15/22 16:00 37.3 C 103 H 12 100/59 L 100 12/15/22 16:00 121 H 12/15/22 15:00 113 H 12/15/22 12:00 37.2 C 113 H 21 110/70 99 12/15/22 11:15 Trach Collar 8 12/15/22 11:00 103 H 12/15/22 09:00 37.1 C 103 H 9 L 100 12/15/22 09:00 85/51 L FiO2 12/15/22 20:00 12/15/22 20:00 12/15/22 19:00 12/15/22 19:00 12/15/22 18:00 12/15/22 20:25 12/15/22 20:11 0.35 12/15/22 16:00 12/15/22 16:00 12/15/22 15:00 12/15/22 12:00 12/15/22 11:15 40 12/15/22 11:00 12/15/22 09:00 12/15/22 09:00 Diagnostic Findings XR foot LT 2V CLINICAL HISTORY: Left foot multiple toe ulcers. COMPARISON: None FINDINGS: Tarsometatarsal joints are intact. There is no acute fracture within the left foot. There is no definite evidence for acute osteomyelitis although evaluation of the toes is difficult given chronic deformities and difficulty positioning. Suspected wound of the distal left first toe is noted. Equivocal erosion of the distal tuft of the left first distal phalanx is noted. Mild degenerative changes are noted within multiple articulations. IMPRESSION: 1. Equivocal erosion of the distal tuft of the distal phalanx of the left first toe. This may be chronic however acute osteomyelitis cannot be excluded. 2. No additional erosions identified although evaluation is difficult given chronic deformity of the toes. ACT 112: Negative or not required by law. Electronically signed by: Aneesh Carney M.D. 12/15/2022 9:23 AM
[2022-12-16] MEDS: LEVOTHYROXINE SODIUM 75 MCG TABLET PO SCH (05:05)
[2022-12-16] MEDS: SODIUM CHLORIDE 0.9% 1000ML 1,000 ML IV SCH ×3 (05:05→14:00)
[2022-12-16 07:57] LABS: Hemoglobin 8.7 g/dl (12.0-16.0); Mean Corpuscular Hemoglobin 29.7 pg (25.0-34.0); Mean Corpuscular Hgb Conc 31.1 g/dL (32.0-36.0); Mean Corpuscular Volume 95.6 fL (80.0-100.0); Mean Platelet Volume 9.5 fL (9.4-12.4); Platelet Count 160 K/uL (130-400); RDW Coefficient of Variation 14.5 % (11.5-14.5); RDW Standard Deviation 50.8 fL (36.4-46.3); Red Blood Count 2.93 M/uL (4.20-5.40)
[2022-12-16 08:17] LABS: Albumin Globulin Ratio 1.1 (0.9-2); Albumin Level 2.8 gm/dl (3.4-5.0); BUN Creatinine Ratio 11.3 (10-20); Bilirubin,Total 0.5 mg/dl (0.2-1.0); Calcium 8.6 mg/dl (8.5-10.1); Creatinine Clr Calc Pharmacy 41.6 ml/min; Est GFR (Non-African American) 74.2 ml/min; Globulin 2.6 gm/dl (2.5-4.0); Potassium 3.6 mmol/L (3.5-5.1); Total Protein 5.4 gm/dl (6.0-8.3)
[2022-12-16] MEDS: busPIRone 15 MG TAB PO SCH ×2 (08:20→20:57)
[2022-12-16] MEDS: amLODIPine BESYLATE 5 MG TAB PO SCH ×2 (08:20→08:24)
[2022-12-16] MEDS: DOCUSATE SODIUM/SENNA 50/8.6MG TAB PO SCH ×2 (08:20→20:57)
[2022-12-16] MEDS: ASPIRIN 81 MG ECTAB PO SCH (08:20)
[2022-12-16] MEDS: CLOPIDOGREL BISULFATE 75 MG TAB PO SCH (08:20)
[2022-12-16] MEDS: FAMOTIDINE 20 MG TAB PO SCH ×2 (08:20→20:57)
[2022-12-16] MEDS: oxyCODONE HCL IR 5 MG TAB (IMMEDIATE RELEASE) PO PRN ×2 (08:20→20:57)
[2022-12-16] MEDS: VENLAFAXINE HCL 37.5 MG TAB PO SCH ×2 (08:21→20:57)
[2022-12-16] MEDS: CYANOCOBALAMIN (B-12) 500 MCG TABLET PO SCH (08:21)
[2022-12-16] MEDS: FERROUS SULFATE 325 MG/7.4 ML UDP PO SCH (08:21)
[2022-12-16] MEDS: POLYETHYLENE (MIRALAX) 17 GM PACK PO SCH ×2 (08:21→20:57)
[2022-12-16] MEDS: MULTI VIT W/MINERALS LIQUID 15 ML UDP PO SCH (08:22)
[2022-12-16] MEDS: GABAPENTIN 250 MG/5 ML 470 ML BTL PO SCH ×2 (10:16→20:57)
[2022-12-16] MEDS: TOPIRAMATE 50 MG TAB PO SCH (10:16)
[2022-12-16] MEDS: CEFEPIME 2,000 MG in SYRINGE 0 ML IV SCH ×2 (10:17→23:02)
--- NOTE | 2022-12-16 13:03 | Gastrointestinal Consultation ---
Date of Consultation December 16, 2022 Assessment & Plan (1) Fecal impaction: Plan large fecal impaction in the rectum: no bowel movement for almost a week recs: --give a fleet enema now to evacuate stool in rectum; give a second one in 6 hours if needed --continue miralax 17 g BID, colace 100 mg daily Thank you for allowing me to participate in the care of this patient. History of Present Illness Attending Physician: Cameron Verduzco MD History of Present Illness 72 yo female with hx PVD, COPD, laryngeal cancer s/p trach here with toe ulcers. GI consulted for fecal impaction. She has not had a significant bowel movement in almost a week now, CT showed large stool burden in rectum. Placed on miralax and colace by primary team. Denies any abd pains, bloating at this time. CBC, CMP reviewed. Allergies Allergy/AdvReac Type Severity Reaction Status Date / Time alendronate sodium Allergy Unknown ON [facility]RE Verified 12/04/22 10:03 CREST MED LIST penicillin V Allergy Unknown ON CENTRE Verified 12/04/22 10:03 CREST MED LIST sulfadiazine Allergy Unknown ON CENTRE Verified 12/04/22 10:03 CREST MED LIST Home Medications Medication Instructions Recorded Confirmed Type aspirin 81 mg chewable tablet 81 mg PO QAM 07/29/19 12/11/22 History simethicone 80 mg chewable tablet 80 mg PO QID 07/30/19 12/11/22 History (Gas Relief 80 (simethicone)) furosemide 20 mg tablet 20 mg PO QAM 12/31/19 12/11/22 History metoprolol tartrate 50 mg tablet 50 mg PO BID 12/31/19 12/11/22 History famotidine 20 mg tablet 20 mg PO BID 04/09/20 12/11/22 History ferrous sulfate 325 mg (65 mg 325 mg PO QAM 04/09/20 12/11/22 History iron) tablet pantoprazole 40 mg tablet,delayed 40 mg PO QAM 04/09/20 12/11/22 History release (Protonix) multivitamin 1 tab PO QAM 05/13/20 12/11/22 History budesonide 180 mcg/actuation 1 inh inhalation Q12H PRN 09/29/20 12/11/22 History breath activated powder inhaler Shortness Of Breath (Pulmicort Flexhaler) lasmiditan 100 mg tablet (Reyvow) 100 mg PO Q24H PRN migraines 09/29/20 12/11/22 History cyanocobalamin (vitamin B-12) 1,000 mcg PO QAM 01/20/21 12/11/22 History 1,000 mcg capsule buspirone 15 mg tablet 15 mg PO BID 04/21/21 12/11/22 History ipratropium 0.5 mg-albuterol 3 mg 3 ml inhalation Q4H PRN Shortness 04/21/21 12/11/22 History (2.5 mg base)/3 mL nebulization Of Breath soln amlodipine 2.5 mg tablet 2.5 mg PO QAM 08/02/21 12/11/22 History diphenhydramine HCl 12.5 mg/5 mL 50 mg PO TID 08/02/21 12/11/22 History oral elixir levothyroxine 75 mcg tablet 75 mcg PO QAM 08/02/21 12/11/22 History lorazepam 0.5 mg tablet 0.5 mg PO BID 08/02/21 12/11/22 History venlafaxine 75 mg tablet 75 mg PO BID 08/02/21 12/11/22 History acetaminophen 500 mg tablet 1,000 mg PO UD PRN Pain (Scale 09/30/21 12/11/22 History (Tylenol Extra Strength) Score 7-10) bismuth subsalicylate 262 mg/15 mL 524 mg PO Q6H PRN DIARRHEA/NAUSEA 09/30/21 12/11/22 History oral suspension (Pepto-Bismol) docosanol 10 % topical cream 1 applic topical 5XD PRN Cold Sores 09/30/21 12/11/22 History (Abreva) ondansetron HCl 4 mg tablet 4 mg PO Q8H PRN nausea/vomiting 09/30/21 12/11/22 History (Zofran) gabapentin 100 mg capsule 200 mg PO BID 07/14/22 12/11/22 History guaifenesin 100 mg/5 mL oral liquid 200 mg PO Q6H PRN Cough 07/14/22 12/11/22 History topiramate 50 mg tablet 50 mg PO BID 30 days #60 tabs 07/14/22 12/11/22 Rx Menthol-Ascorbic Acid Lozenge 1 flo PO Q4H PRN Sore Throat 07/20/22 12/11/22 History aluminum-mag hydroxide-simethicone 30 ml PO Q8H PRN Acid Reflux 07/20/22 12/11/22 History 225 mg-200 mg-25 mg/5 mL oral susp bisacodyl 10 mg rectal suppository 10 mg MA QPM PRN Constipation 07/20/22 12/11/22 History (Dulcolax (bisacodyl)) erenumab-aooe 140 mg/mL 140 mg subcut Q30D 07/20/22 12/11/22 History subcutaneous auto-injector magnesium hydroxide 800 mg/5 mL 30 mg PO UD PRN Constipation 07/20/22 12/11/22 History oral suspension peg 400-propylene glycol (PF) 0.4 1 drp ophthalmic (eye) Q8H PRN Dry 07/20/22 12/11/22 History %-0.3 % eye drops in a dropperette Eyes (Systane (PF)) sodium phosphates 19 gram-7 197 ml MA QAM PRN Constipation 07/20/22 12/11/22 History gram/118 mL enema (Fleet Enema) sucralfate 1 gram tablet 1 g PO BID 07/20/22 12/11/22 History Patient History Medical History Anemia Cancer Hx breast, lung and laryngeal cancer (larynx radiation, laryngectomy 2008) Chronic pain syndrome Chronic respiratory failure Constipation COPD (chronic obstructive pulmonary disease) Depression with anxiety Dysphagia Elevated hemidiaphragm GERD (gastroesophageal reflux disease) Hematoma of left thigh History of COVID-19 11/2020, pneumonia Hx MRSA infection Hx of chronic respiratory failure Hx of hypokalemia Hx of malignant neoplasm larynx and breast Hx of migraine headaches Hx of Raynaud's syndrome Hyperlipemia Hypertension Hypothyroidism Insomnia Muscle weakness Generalized On home oxygen therapy 2L via trach mask Osteoarthritis Pain of left lower extremity due to ischemia Tracheostomy in place 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 Family/Other Prostate cancer Sister , Passed age 64 of [place] No problems noted. Sister No problems noted. Sister No problems noted. Sister No problems noted. Brother No problems noted. Son , Passed as child in MVA No problems noted. Son , Passed as child in MVA No problems noted. Son No problems noted. Son No problems noted. Daughter No problems noted. Social History Smoking Status: Unknown if ever smoked Cigarettes Per Day: 3 ppd, 40 pack year history, quit 2008; Hx Alcohol Use: No Hx Substance Use: No Preferred Language: Armenian Communication Ability: Effective Visual Impairment: Limited Hearing Ability: Normal Office Services Clerk Required: No Beliefs That Will Affect Care: None marital status: Single Current Living Situation: [facility] Current Living Situation Comment: [facility] current occupational status: retired current occupation: Retired Other Information That Helps Us Care for You: No Feels Safe at Home: Yes Safety Concerns: Feels Safe At This Time caffeine: Yes (0-1 cup / day ) during the past year weight has: remained stable Assistive Devices: Wheelchair Review of Systems Constitutional: no fever, no chills and no weight loss Eyes: as per Subjective / HPI Ear, Nose, Mouth, Throat: as per Subjective / HPI Respiratory: no dyspnea and no dyspnea on exertion Cardiovascular: no chest pain and no palpitations Gastrointestinal: as per Subjective / HPI Musculoskeletal: no joint pain and no swelling Integumentary: no rash and no lesions Neurologic: no numbness and no paresthesia Psychiatric: no depression and no anxiety Endocrine: no fatigue Hematologic / Lymphatic: no easy bleeding and no easy bruising Physical Exam Constitutional: WD/WN, vitals as above Eyes: EOM intact bilaterally Neck: normal visual inspection (tracheostomy in place) Respiratory: normal respiratory effort, lungs clear to auscultation Cardiovascular: RRR, no murmur, no edema Gastrointestinal (Abdomen): Inspection/Auscultation: abdomen normal to inspection; abdomen not distended Percussion/Palpation: abdomen soft; abdomen nontender and no hepatosplenomegaly Musculoskeletal: Extremities: + extremities abnormal to inspection (toe ulcers noted) Skin: no rashes, warm and dry Neurologic: moves upper extremities Psychiatric: A+Ox3, euthymic affect Results & Data ([facility]) Vital Signs (Past 12 Hours) Vital Signs Temp Pulse Pulse Resp BP BP Pulse Ox 12/16/22 11:47 106 H 12/16/22 08:00 106 H 12/16/22 08:00 102 H 16 85/48 L 94 12/16/22 06:00 37.4 C 106 H 13 98/51 L 100 12/16/22 05:00 37.6 C H 115 H 13 123/54 L 97 12/16/22 04:00 37.4 C 120 H 14 127/94 97 12/16/22 03:00 37.3 C 104 H 14 100/53 L 99 12/16/22 02:00 37.4 C 109 H 15 115/62 100 12/16/22 01:00 37.1 C 112 H 17 111/73 97 O2 Del Method O2 Flow Rate FiO2 12/16/22 11:47 12/16/22 08:00 12/16/22 08:00 Trach Collar 12/16/22 06:00 Trach Collar 8 35 12/16/22 05:00 Trach Collar 8 35 12/16/22 04:00 Trach Collar 8 35 12/16/22 03:00 Trach Collar 8 35 12/16/22 02:00 Trach Collar 8 35 12/16/22 01:00 Trach Collar 8 35 PG Care Time/CCT Total # of Minutes Spent Total Time Spent with Patient: Total time spent is greater than 50% in coordination of care (as documented) at patient's floor/unit and/or counseling patient: Coding Level of Care Code 62421 INT INP/OBS CARE 3/75MIN Diagnoses Fecal impaction K56.41
--- NOTE | 2022-12-16 15:30 | Vascular Medicine ProgressNote ---
Date of Service December 16, 2022 Assessment & Plan (1) PAD (peripheral artery disease): Plan: Left foot critical limb ischemia -- Post left NEWS PHOTOGRAPHER angioplasty. Diffuse residual SFA disease History of Raynaud's 2. Post procedure shock -- resolved 3. Acute blood loss anemia/left thigh hematoma -- post 2uPRBC 4. History of laryngeal cancer post laryngectomy 2009 with tracheostomy 5. Chronic pain 6. COPD 7. Cellulitis 8. Post cath RT Radial artery occlusion-improved RT hand perfusion 9. Fecal impaction Pain better controlled. Now on oral pain meds. Hb stable. No active bleeding Afebrile, normal WBC, blood cx NGTD LLE perfusion limited, DP dopplerable. No active signs of infection. RT hand appears better perfused today. CTA reviewed -- LT NEWS PHOTOGRAPHER patent. Diffuse severe SFA disease. 2 vessel runoff below the foot RAMÓN/peroneal. -- LT SFA disease does appear amenable to endovascular intervention. Likely via LT brachial artery, possible pedal access. Would need anesthesia involvement. -- Discussed possible redo procedure with patient and sister Mei. Sister agrees with proceeding. Patient wishes to think about things further. -- Unsure when procedure could be done based on lab engineer/anesthesia schedules - consider discharge and return for outpatient procedure Continue aspirin, clopidogrel -- Continue amlodipine Follow-up blood cultures, p.o. antibiotics per hospital medicine Admission and Anticipated Discharge Date Admission Date: December 12, 2022 Subjective Comfortable today. Denies significant pain. Denies shortness of breath. Tele reviewed-- no events. Review of Systems Review of Systems: All systems reviewed & are unremarkable except as noted in HPI & below Physical Exam Physical Exam: General: Thin, frail. resting comfortably Eyes: Sclerae anicteric HENT: O2 mask over tracheostomy Lungs: clear anteriorly Cardiac: Tachycardic, regular, no murmurs Abdomen: Soft Psych: Alert orient x3, normal affect and mood Extremities/Vascular: -- Faint right radial pulse, resolving ecchymosis. 2+ brachial pulse. small hematoma surrounding access site. Mild ecchymosis extending around elbow. -- Improved RT hand discoloration from prior Cap refill improved. Purplish discoloration of digits on left hand improved. 1+ left radial pulse. --Faint DP on right. Sluggish capillary refill -- Nonpalpable DP/PT pulses on left. Dopplerable LT foot pink from mid foot to toes. Superficial ulcers with scaling over dorsal aspect of toes. Black eschar involving plantar aspects of 1-5 toes at MTP joint. Ecchymosis left upper thigh extending over inguinal crease resolving Results & Data ([facility]) Vital Signs (Past 12 Hours) Vital Signs Temp Pulse Pulse Resp BP BP Pulse Ox 12/16/22 13:48 98.6 F 107 H 17 117/71 100 12/16/22 11:47 106 H 12/16/22 08:00 106 H 12/16/22 08:00 102 H 16 85/48 L 94 12/16/22 06:00 99.3 F 106 H 13 98/51 L 100 12/16/22 05:00 99.7 F H 115 H 13 123/54 L 97 12/16/22 04:00 99.3 F 120 H 14 127/94 97 O2 Del Method O2 Flow Rate FiO2 12/16/22 13:48 Trach Collar 12/16/22 11:47 12/16/22 08:00 12/16/22 08:00 Trach Collar 12/16/22 06:00 Trach Collar 8 35 12/16/22 05:00 Trach Collar 8 35 12/16/22 04:00 Trach Collar 8 35 PG Care Time/CCT Total # of Minutes Spent Total Time Spent with Patient: Total time spent is greater than 50% in coordination of care (as documented) at patient's floor/unit and/or counseling patient: Coding Level of Care Code 08524 SUB INP/OBS CARE 3/50MIN Diagnoses PAD (peripheral artery disease) I73.9
--- NOTE | 2022-12-16 16:17 | Hospitalist Progress Note ---
Date of Service December 16, 2022 Assessment & Plan (1) Fever: Plan: patient spiked a fever on 12/13 Source is uncertain, could be from the lower extremity digits wounds Cultures were obtained, negative so far Continue empiric IV cefepime for 24 hrs, then deescalte to oral (2) Dry gangrene: Plan: Mostly non healing wound lower extremity digits, secondary to limb ischemia, from sever PAD Foot x ray suggests some small erosion concerning for osteomyelitis Podiatry on consult (3) Postoperative hypovolemic shock: Plan: S/p angioplasty in the afternoon on 12/11, with complication of left thigh hematoma and rapid development of profound hypotension and decreased responsiveness Now resolved (4) Acute blood loss anemia: Plan: Suspect blood loss from intramuscular hematoma left rectus femoris, left iliacus and left thigh S/p 1 unit packed red blood cells 12/12, Hb stable Repeat imaging shows improving hematoma (5) PAD (peripheral artery disease): Plan: S/p angioplasty as stated above. -CTA shows diffuse artherosclerotic disease and complete thrombosis of the right common iliac artery with reconstitution at the bifurcation. 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 - continue supplemental O2 as needed to maintain sats 88-92% (COPD) -Continue trach care (10) Hematoma of left thigh: Plan: Some improvement on repeat imaging (11) COPD (chronic obstructive pulmonary disease): Plan: Chronic, without wheezes on exam or evidence for acute exacerbation. - continue home inhalers when able (12) Anxiety: Plan: Continue BuSpar 15 mg p.o. twice daily (13) GERD (gastroesophageal reflux disease): Plan: Continue famotidine 20mg PO BID (14) Hypothyroidism: Plan: Continue levothyroxine 75 mcg PO daily (15) Tracheostomy present: Plan Plan was for center care, however, patient now on CHILD WELFARE WORKER. Admission and Anticipated Discharge Date Admission Date: December 12, 2022 Subjective patient seen and examined, her pain is under good control Review of Systems Review of Systems: All systems reviewed are negative, apart from the ones contained in the history. Physical Exam Physical Exam: The patient is awake, alert and oriented 3, well developed and well nourished, normocephalic and atraumatic, lying in bed and in no acute distress. HEENT--PERRL, EOMI, mucous membranes and oropharynx mildly dry Neck--trachestomy tube in situ. Heart--normal S1 and S2. No murmurs, rubs or gallops. Lungs--clear bilaterally, no respiratory distress, no accessory muscle use. Abdomen--normal bowel sounds and soft. Mild epigastric and left sided abdominal pain Extremities--mild contracture, gangrenous changes most digits Dermatologic--normal skin turgor, normal color, no abnormal lymph nodes, no rash. Neurologic--cranial nerves II through XII grossly intact. Rheumatologic--normal range of motion. Psychiatric--normal affect. Results & Data Results & Data ([facility]) Vital Signs (Past 12 Hours) Vital Signs Temp Pulse Pulse Resp BP BP Pulse Ox 12/16/22 15:36 106 H 12/16/22 13:48 98.6 F 107 H 17 117/71 100 12/16/22 11:47 106 H 12/16/22 08:00 106 H 12/16/22 08:00 102 H 16 85/48 L 94 12/16/22 06:00 99.3 F 106 H 13 98/51 L 100 12/16/22 05:00 99.7 F H 115 H 13 123/54 L 97 O2 Del Method O2 Flow Rate FiO2 12/16/22 15:36 12/16/22 13:48 Trach Collar 12/16/22 11:47 12/16/22 08:00 12/16/22 08:00 Trach Collar 12/16/22 06:00 Trach Collar 8 35 12/16/22 05:00 Trach Collar 8 35 PG Care Time/CCT Total # of Minutes Spent Total Time Spent with Patient: Total time spent is greater than 50% in coordination of care (as documented) at patient's floor/unit and/or counseling patient: Coding Level of Care Code 61508 SUB INP/OBS CARE 2/35MIN Diagnoses Fever R50.9 Dry gangrene I96 Postoperative hypovolemic shock T81.19XA Encounter type: initial encounter Acute blood loss anemia D62 PAD (peripheral artery disease) I73.9 Fecal impaction K56.41 Hypotension I95.9 Acute encephalopathy G93.40 Laryngeal cancer C32.9 Hematoma of left thigh S70.12XA COPD (chronic obstructive pulmonary disease) J43.9 COPD type: emphysema Emphysema type: unspecified Anxiety F41.9 GERD (gastroesophageal reflux disease) K21.9 Esophagitis presence: esophagitis presence not specified Hypothyroidism E03.9 Hypothyroidism type: unspecified Tracheostomy present Z93.0 Time Spent (min) 35 (1) Postoperative hypovolemic shock Encounter type: initial encounter Qualified Code(s): T81.19XA - Other postprocedural shock, initial encounter (2) COPD (chronic obstructive pulmonary disease) COPD type: emphysema Emphysema type: unspecified Qualified Code(s): J43.9 - Emphysema, unspecified (3) GERD (gastroesophageal reflux disease) Esophagitis presence: esophagitis presence not specified Qualified Code(s): K21.9 - Gastro-esophageal reflux disease without esophagitis (4) Hypothyroidism Hypothyroidism type: unspecified Qualified Code(s): E03.9 - Hypothyroidism, unspecified
[2022-12-16] MEDS: ACETAMINOPHEN 500 MG TAB PO PRN (17:14)
[2022-12-17] MEDS: TOPIRAMATE 50 MG TAB PO SCH ×2 (01:13→10:40)
[2022-12-17] MEDS: SODIUM CHLORIDE 0.9% 1000ML 1,000 ML IV SCH ×3 (01:17→20:28)
[2022-12-17] MEDS: LEVOTHYROXINE SODIUM 75 MCG TABLET PO SCH (05:38)
[2022-12-17 07:58] LABS: Creatinine Clr Calc Pharmacy 52.1 ml/min; Est GFR (African American) 104.1 ml/min; Est GFR (Non-African American) 89.8 ml/min
[2022-12-17] MEDS: MULTI VIT W/MINERALS LIQUID 15 ML UDP PO SCH (09:27)
[2022-12-17] MEDS: FERROUS SULFATE 325 MG/7.4 ML UDP PO SCH (09:27)
[2022-12-17] MEDS: DOCUSATE SODIUM/SENNA 50/8.6MG TAB PO SCH ×2 (09:28→20:09)
[2022-12-17] MEDS: amLODIPine BESYLATE 5 MG TAB PO SCH (09:28)
[2022-12-17] MEDS: CYANOCOBALAMIN (B-12) 500 MCG TABLET PO SCH (09:28)
[2022-12-17] MEDS: busPIRone 15 MG TAB PO SCH ×2 (09:28→20:04)
[2022-12-17] MEDS: ASPIRIN 81 MG ECTAB PO SCH (09:28)
[2022-12-17] MEDS: FAMOTIDINE 20 MG TAB PO SCH ×2 (09:28→20:05)
[2022-12-17] MEDS: VENLAFAXINE HCL 37.5 MG TAB PO SCH ×2 (09:29→20:06)
[2022-12-17] MEDS: CLOPIDOGREL BISULFATE 75 MG TAB PO SCH (09:29)
[2022-12-17] MEDS: POLYETHYLENE (MIRALAX) 17 GM PACK PO SCH ×2 (09:30→20:09)
[2022-12-17] MEDS: GABAPENTIN 250 MG/5 ML 470 ML BTL PO SCH ×2 (09:35→20:09)
[2022-12-17] MEDS: CEFEPIME 2,000 MG in SYRINGE 0 ML IV SCH (10:40)
--- NOTE | 2022-12-17 14:11 | Hospitalist Progress Note ---
Date of Service December 17, 2022 Assessment & Plan (1) Fever: Plan: patient spiked a fever on 12/13 Source is uncertain, could be from the lower extremity digits wounds Cultures were obtained, negative so far Continue empiric IV cefepime for 24 hrs, then deescalte to oral (2) Dry gangrene: Plan: Mostly non healing wound lower extremity digits, secondary to limb ischemia, from sever PAD Foot x ray suggests some small erosion concerning for osteomyelitis Podiatry on consult (3) Postoperative hypovolemic shock: Plan: S/p angioplasty in the afternoon on 12/11, with complication of left thigh hematoma and rapid development of profound hypotension and decreased responsiveness Now resolved (4) Acute blood loss anemia: Plan: Suspect blood loss from intramuscular hematoma left rectus femoris, left iliacus and left thigh S/p 1 unit packed red blood cells 12/12, Hb stable Repeat imaging shows improving hematoma (5) PAD (peripheral artery disease): Plan: S/p angioplasty as stated above. -CTA shows diffuse artherosclerotic disease and complete thrombosis of the right common iliac artery with reconstitution at the bifurcation. This is unchanged from a 2019 examination - Vascular on consult - Continue ASA/Plavix -Pain management also on consult, currently on SPACE SCIENCES DIRECTOR (6) Fecal impaction: Plan: Possible contributing towards abdominal pain on exam although this may be hemorrhage as well last BM was 7 days ago Consult GI rec fleet enema, miralax (7) Hypotension: Plan: BP soft again, will give a bouls of normal saline Dilaudid SPACE SCIENCES DIRECTOR discontinued, now on oral oxycodone 5mg (8) Acute encephalopathy: Plan: now resolved (9) Laryngeal cancer: Plan: S/p tracheostomy 10 years ago, with chronic trach collar. - continue supplemental O2 as needed to maintain sats 88-92% (COPD) -Continue trach care (10) Hematoma of left thigh: Plan: Some improvement on repeat imaging (11) COPD (chronic obstructive pulmonary disease): Plan: Chronic, without wheezes on exam or evidence for acute exacerbation. - continue home inhalers when able (12) Anxiety: Plan: Continue BuSpar 15 mg p.o. twice daily (13) GERD (gastroesophageal reflux disease): Plan: Continue famotidine 20mg PO BID (14) Hypothyroidism: Plan: Continue levothyroxine 75 mcg PO daily (15) Tracheostomy present: Plan d/c back to center care in the next 24 hrs Admission and Anticipated Discharge Date Admission Date: December 12, 2022 Subjective patient seen and examined, her pain is under good control Review of Systems Review of Systems: All systems reviewed are negative, apart from the ones contained in the history. Physical Exam Physical Exam: The patient is awake, alert and oriented 3, well developed and well nourished, normocephalic and atraumatic, lying in bed and in no acute distress. HEENT--PERRL, EOMI, mucous membranes and oropharynx mildly dry Neck--trachestomy tube in situ. Heart--normal S1 and S2. No murmurs, rubs or gallops. Lungs--clear bilaterally, no respiratory distress, no accessory muscle use. Abdomen--normal bowel sounds and soft. Mild epigastric and left sided abdominal pain Extremities--mild contracture, gangrenous changes most digits Dermatologic--normal skin turgor, normal color, no abnormal lymph nodes, no rash. Neurologic--cranial nerves II through XII grossly intact. Rheumatologic--normal range of motion. Psychiatric--normal affect. Results & Data Results & Data ([facility]) Vital Signs (Past 12 Hours) Vital Signs Temp Pulse Pulse Resp BP Pulse Ox O2 Del Method 12/17/22 12:05 98.2 F 108 H 16 123/76 96 Trach Collar 12/17/22 08:00 96 H 12/17/22 08:00 Trach Collar 12/17/22 07:24 97.9 F 107 H 16 131/78 99 Trach Collar 12/17/22 03:50 97.5 F L 102 H 18 142/89 H 98 Trach Collar 12/17/22 03:13 16 99 Trach Collar O2 Flow Rate FiO2 12/17/22 12:05 6 12/17/22 08:00 12/17/22 08:00 8 12/17/22 07:24 6 12/17/22 03:50 12/17/22 03:13 6 28 PG Care Time/CCT Total # of Minutes Spent Total Time Spent with Patient: Total time spent is greater than 50% in coordination of care (as documented) at patient's floor/unit and/or counseling patient: Coding Level of Care Code 32570 SUB INP/OBS CARE 2/35MIN Diagnoses Fever R50.9 Dry gangrene I96 Postoperative hypovolemic shock T81.19XA Encounter type: initial encounter Acute blood loss anemia D62 PAD (peripheral artery disease) I73.9 Fecal impaction K56.41 Hypotension I95.9 Acute encephalopathy G93.40 Laryngeal cancer C32.9 Hematoma of left thigh S70.12XA COPD (chronic obstructive pulmonary disease) J43.9 COPD type: emphysema Emphysema type: unspecified Anxiety F41.9 GERD (gastroesophageal reflux disease) K21.9 Esophagitis presence: esophagitis presence not specified Hypothyroidism E03.9 Hypothyroidism type: unspecified Tracheostomy present Z93.0 Time Spent (min) 35 (1) Postoperative hypovolemic shock Encounter type: initial encounter Qualified Code(s): T81.19XA - Other postprocedural shock, initial encounter (2) COPD (chronic obstructive pulmonary disease) COPD type: emphysema Emphysema type: unspecified Qualified Code(s): J43.9 - Emphysema, unspecified (3) GERD (gastroesophageal reflux disease) Esophagitis presence: esophagitis presence not specified Qualified Code(s): K21.9 - Gastro-esophageal reflux disease without esophagitis (4) Hypothyroidism Hypothyroidism type: unspecified Qualified Code(s): E03.9 - Hypothyroidism, unspecified
[2022-12-18] MEDS: CEFEPIME 2,000 MG in SYRINGE 0 ML IV SCH ×2 (02:06→10:11)
[2022-12-18] MEDS: TOPIRAMATE 50 MG TAB PO SCH ×2 (02:07→11:17)
[2022-12-18] MEDS: LEVOTHYROXINE SODIUM 75 MCG TABLET PO SCH (05:23)
[2022-12-18] MEDS: SODIUM CHLORIDE 0.9% 1000ML 1,000 ML IV SCH (05:26)
[2022-12-18] MEDS: amLODIPine BESYLATE 5 MG TAB PO SCH (11:08)
[2022-12-18] MEDS: ASPIRIN 81 MG ECTAB PO SCH (11:08)
[2022-12-18] MEDS: busPIRone 15 MG TAB PO SCH (11:08)
[2022-12-18] MEDS: FERROUS SULFATE 325 MG/7.4 ML UDP PO SCH (11:16)
[2022-12-18] MEDS: CLOPIDOGREL BISULFATE 75 MG TAB PO SCH (11:16)
[2022-12-18] MEDS: FAMOTIDINE 20 MG TAB PO SCH (11:16)
[2022-12-18] MEDS: GABAPENTIN 250 MG/5 ML 470 ML BTL PO SCH (11:16)
[2022-12-18] MEDS: DOCUSATE SODIUM/SENNA 50/8.6MG TAB PO SCH (11:16)
[2022-12-18] MEDS: CYANOCOBALAMIN (B-12) 500 MCG TABLET PO SCH (11:16)
[2022-12-18] MEDS: MULTI VIT W/MINERALS LIQUID 15 ML UDP PO SCH (11:17)
[2022-12-18] MEDS: VENLAFAXINE HCL 37.5 MG TAB PO SCH (11:17)
[2022-12-18] MEDS: POLYETHYLENE (MIRALAX) 17 GM PACK PO SCH (11:17)
--- NOTE | 2022-12-18 13:54 | Discharge Summary ---
Date of Service December 18, 2022 Principal Diagnosis severe PAD Discharge Exam The patient is awake, alert and oriented 3, well developed and well nourished, normocephalic and atraumatic, lying in bed and in no acute distress. HEENT--PERRL, EOMI, mucous membranes and oropharynx mildly dry Neck--trachestomy tube in situ. Heart--normal S1 and S2. No murmurs, rubs or gallops. Lungs--clear bilaterally, no respiratory distress, no accessory muscle use. Abdomen--normal bowel sounds and soft. Mild epigastric and left sided abdominal pain Extremities--mild contracture, gangrenous changes most digits Dermatologic--normal skin turgor, normal color, no abnormal lymph nodes, no rash. Neurologic--cranial nerves II through XII grossly intact. Rheumatologic--normal range of motion. Psychiatric--normal affect. Discharge Data Allergies Allergy/AdvReac Type Severity Reaction Status Date / Time alendronate sodium Allergy Unknown ON [facility] Verified 12/04/22 10:03 [facility]ST MED LIST penicillin V Allergy Unknown ON CENTRE Verified 12/04/22 10:03 CREST MED LIST sulfadiazine Allergy Unknown ON C[facility]RE Verified 12/04/22 10:03 CREST MED LIST Consultations 12/11/22 18:03 Consult Cleaner And Preparer Stat 12/11/22 18:14 Consult Cardiology Routine 12/12/22 21:26 Consult Pain Management Routine 12/14/22 12:30 Consult Palliative Care Routine 12/14/22 15:37 Consult Podiatry Routine 12/15/22 15:52 Consult Gastroenterology Routine Procedures Performed Operation Date: 12/11/22 09:30 Actual Procedures p Angiogram Extremity Unilateral - Craig Yee MD p Femoral Popliteal Balloon - Craig Yee MD s Ultrasound Vascular Access - Craig Yee MD s Iliac Balloon - Craig Yee MD s Angio Extremity Bilateral - Craig Yee MD Ordered Studies 12/11/22 06:32 CL Cath Imgs for PACS use only Routine 12/11/22 18:10 sono, invasive monitoring [US point of care ultrasound] Stat 12/11/22 18:51 CT Abd and Pelvis [CT abd pelvis wo con] Stat 12/14/22 17:51 CT Abd and Pelvis [CT abd pelvis wo con] Urgent 12/15/22 13:43 CTA abd aorta runof w con [CT ang AA runof w inc wo [place]] Routine Hospital Course (1) Fever: patient spiked a fever on 12/13 Source is uncertain, could be from the lower extremity digits wounds Cultures were obtained, negative so far Continue empiric IV cefepime for 24 hrs, then deescalte to oral (2) Dry gangrene: Mostly non healing wound lower extremity digits, secondary to limb ischemia, from sever PAD Foot x ray suggests some small erosion concerning for osteomyelitis Podiatry on consult (3) Postoperative hypovolemic shock: S/p angioplasty in the afternoon on 12/11, with complication of left thigh hematoma and rapid development of profound hypotension and decreased responsiveness Now resolved (4) Acute blood loss anemia: Suspect blood loss from intramuscular hematoma left rectus femoris, left iliacus and left thigh S/p 1 unit packed red blood cells 12/12, Hb stable Repeat imaging shows improving hematoma (5) PAD (peripheral artery disease): S/p angioplasty as stated above. -CTA shows diffuse artherosclerotic disease and complete thrombosis of the right common iliac artery with reconstitution at the bifurcation. This is unchanged from a 2019 examination - Vascular on consult - Continue ASA/Plavix -Pain management also on consult, currently on CLOD PULLER (6) Fecal impaction: Possible contributing towards abdominal pain on exam although this may be hemorrhage as well last BM was 7 days ago Consult GI rec fleet enema, miralax (7) Hypotension: BP soft again, will give a bouls of normal saline Dilaudid CLOD PULLER discontinued, now on oral oxycodone 5mg (8) Acute encephalopathy: now resolved (9) Laryngeal cancer: S/p tracheostomy 10 years ago, with chronic trach collar. - continue supplemental O2 as needed to maintain sats 88-92% (COPD) -Continue trach care (10) Hematoma of left thigh: Some improvement on repeat imaging (11) COPD (chronic obstructive pulmonary disease): Chronic, without wheezes on exam or evidence for acute exacerbation. - continue home inhalers when able (12) Anxiety: Continue BuSpar 15 mg p.o. twice daily (13) GERD (gastroesophageal reflux disease): Continue famotidine 20mg PO BID (14) Hypothyroidism: Continue levothyroxine 75 mcg PO daily (15) Tracheostomy present: Plan d/c back to center care in the next 24 hrs Total Time Total Time Spent Total Time Spent (In Minutes): 35 Discharge Plan Discharge Items Patient Disposition: Personal Correction Reason For Visit: LLE ANGIO Discharge Diagnosis: severe PVD Activity: Resume your previous activity Non-emergency contact: Primary Care Provider Call non-emergency contact if: you have any medication questions Follow-up/Referrals: [facility] [Primary Care Provider] - Diet: Regular Addtl Attending Provider Instructions: please make appointment to follow up with your regular PCP Pending Studies at Discharge: No Stand-Alone Forms: My Xquva, Smoking Cessation Skilled Items Patient informed of condition?: Yes DNR: No Discharge Level of Care: Other Communicable Disease: No Discharge Prognosis: Stable Lines: None Urinary Catheter: No Medications and DC Order Prescriptions: New clopidogrel 75 mg Tablet 75 mg PO QAM 30 Days Qty: 30 0RF Continued gabapentin 100 mg capsule 200 mg PO BID Rx Instructions: Neuropathic pain, headache buspirone 15 mg tablet 15 mg PO BID ipratropium-albuterol 0.5 mg-3 mg(2.5 mg base)/3 mL solution for nebulization 3 ml inhalation Q4H PRN (Reason: Shortness Of Breath) guaifenesin 100 mg/5 mL liquid 200 mg PO Q6H PRN (Reason: Cough) topiramate 50 mg tablet 50 mg PO BID 30 Days Qty: 60 5RF Rx Instructions: TAKES AT 0001 AND 1100. aspirin 81 mg Tablet,Chewable 81 mg PO QAM simethicone [Gas Relief 80 (simethicone)] 80 mg Tablet,Chewable 80 mg PO QID furosemide 20 mg Tablet 20 mg PO QAM metoprolol tartrate 50 mg Tablet 50 mg PO BID multivitamin Tablet 1 tab PO QAM famotidine 20 mg Tablet 20 mg PO BID pantoprazole [Protonix] 40 mg Tablet,Delayed Release (Dr/Ec) 40 mg PO QAM ferrous sulfate 325 mg (65 mg iron) Tablet 325 mg PO QAM cyanocobalamin (vitamin B-12) 1,000 mcg capsule 1,000 mcg PO QAM Pulmicort Flexhaler 180 mcg/actuation aerosol powdr breath activated 1 inh INHALATION Q12H PRN (Reason: Shortness Of Breath) Rx Instructions: Rinse mouth thoroughly and spit after each use Reyvow 100 mg tablet 100 mg PO Q24H PRN (Reason: migraines) Rx Instructions: Do not exceed 3 administrations per week levothyroxine 75 mcg Tablet 75 mcg PO QAM venlafaxine 75 mg tablet 75 mg PO BID lorazepam 0.5 mg tablet 0.5 mg PO BID amlodipine 2.5 mg Tablet 2.5 mg PO QAM diphenhydramine HCl 12.5 mg/5 mL Elixir 50 mg PO TID docosanol [Abreva] 10 % Cream 1 applic TOPICAL 5XD PRN (Reason: Cold Sores) ondansetron HCl [Zofran] 4 mg Tablet 4 mg PO Q8H PRN (Reason: nausea/vomiting) acetaminophen [Tylenol Extra Strength] 500 mg Tablet 1,000 mg PO UD MDD 3 GRAMS/24 HOURS PRN (Reason: Pain (Scale Score 7-10)) Rx Instructions: ONLY 2-3 X A WEEK. bismuth subsalicylate [Pepto-Bismol] 262 mg/15 mL Suspension 524 mg PO Q6H PRN (Reason: DIARRHEA/NAUSEA) alum-mag hydroxide-simeth 225-200-25 mg/5 mL Suspension 30 ml PO Q8H PRN (Reason: Acid Reflux) sucralfate 1 gram Tablet 1 g PO BID bisacodyl [Dulcolax (bisacodyl)] 10 mg Suppository 10 mg NH QPM PRN (Reason: Constipation) Rx Instructions: give day 3 on 9447-5821 shift, if no BM after MOM Fleet Enema 19-7 gram/118 mL Enema 197 ml NH QAM PRN (Reason: Constipation) Rx Instructions: if no BM after Dulcolax, administer on 4923-0179 shift. magnesium hydroxide 800 mg/5 mL Suspension 30 mg PO UD PRN (Reason: Constipation) Rx Instructions: give as needed; administer on 5600-0311 shift. Systane (PF) 0.4-0.3 % Dropperette 1 drp OPHTHALMIC (EYE) Q8H PRN (Reason: Dry Eyes) Menthol-Ascorbic Acid Lozenge 1 flo PO Q4H PRN (Reason: Sore Throat) erenumab-aooe 140 mg/mL auto-injector 140 mg subcut Q30D Rx Instructions: TAKES ON THE . Discharge Orders: Discharge Order (Routine); Ordered 12/18/22 Ordered By: Cameron Verduzco Admission Data Admit Date/Time: 12/12/22 09:52 Attending Provider: Cameron Verduzco Admit Provider: Craig Yee Primary Care Provider: [facility] Other Providers: Myron Fairbanks ; Craig Yee ; Leann Goncalves ; Catrachito Anton ; Abby Villegas ; Adebayo Matias Coding Level of Care Code HOSP INP/OBS DISCH >30 MIN Diagnoses Fever R50.9 Dry gangrene I96 Postoperative hypovolemic shock T81.19XA Encounter type: initial encounter Acute blood loss anemia D62 PAD (peripheral artery disease) I73.9 Fecal impaction K56.41 Hypotension I95.9 Acute encephalopathy G93.40 Laryngeal cancer C32.9 Hematoma of left thigh S70.12XA COPD (chronic obstructive pulmonary disease) J43.9 COPD type: emphysema Emphysema type: unspecified Anxiety F41.9 GERD (gastroesophageal reflux disease) K21.9 Esophagitis presence: esophagitis presence not specified Hypothyroidism E03.9 Hypothyroidism type: unspecified Tracheostomy present Z93.0 Time Spent (min) 35
--- NOTE | 2022-12-18 14:33 | Vascular Medicine ProgressNote ---
Date of Service December 18, 2022 Assessment & Plan (1) PAD (peripheral artery disease): Plan: Left foot critical limb ischemia -- Post left [employer] IN[employer]UTION angioplasty. Diffuse residual SFA disease History of Raynaud's 2. Post procedure shock -- resolved 3. Acute blood loss anemia/left thigh hematoma -- post 2uPRBC 4. History of laryngeal cancer post laryngectomy 2009 with tracheostomy 5. Chronic pain 6. COPD 7. Cellulitis 8. Post cath RT Radial artery occlusion-improved RT hand perfusion 9. Fecal impaction Pain better controlled. Now on oral pain meds. Hb stable. No active bleeding Left foot wounds stable. No active signs of infection. -- LT SFA disease does appear amenable to endovascular intervention. Likely via LT brachial artery, possible pedal access. Will need anesthesia involvement. --Discussed procedure with patient and with her sister Mei. They are in agreement with proceeding. We will plan to arrange as an outpatient next week. From a vascular standpoint okay with discharge today back to [facility] Continue aspirin, clopidogrel -- Continue amlodipine Oral pain medicines, p.o. antibiotics per hospital medicine Appreciate [facility] care. Admission and Anticipated Discharge Date Admission Date: December 12, 2022 Subjective Patient smiling today. States her pain is well controlled. Feeling well. Telemetry reviewedsinus tachycardia without events. Review of Systems Review of Systems: All systems reviewed & are unremarkable except as noted in HPI & below Physical Exam Physical Exam: General: Thin, frail. resting comfortably Eyes: Sclerae anicteric HENT: O2 mask over tracheostomy Lungs: clear anteriorly Cardiac: Tachycardic, regular, no murmurs Abdomen: Soft Psych: Alert orient x3, normal affect and mood Extremities/Vascular: -- Faint right radial pulse, resolving ecchymosis. 2+ brachial pulse. small hematoma surrounding access site. Mild ecchymosis extending around elbow. -- 1+ left radial pulse. Bilateral digits on hands white/purpleish with sluggish capillary refill. --Faint DP on right. Sluggish capillary refill -- Nonpalpable DP/PT pulses on left. Dopplerable LT foot pink from mid foot to toes. Superficial ulcers with scaling over dorsal aspect of toes. Black eschar involving plantar aspects of 1-5 toes at MTP joint. Ecchymosis left upper thigh extending over inguinal crease resolving Results & Data ([facility]) Vital Signs (Past 12 Hours) Vital Signs Temp Pulse Resp BP Pulse Ox O2 Del Method O2 Flow Rate 12/18/22 12:19 97.7 F 112 H 17 125/79 99 Trach Collar 6.0 12/18/22 08:00 Trach Collar 12/18/22 08:10 97.5 F L 111 H 20 143/82 H 100 Trach Collar 6.0 12/18/22 04:00 97.3 F L 106 H 18 144/83 H 98 Trach Collar 6 FiO2 12/18/22 12:19 12/18/22 08:00 25 12/18/22 08:10 12/18/22 04:00 28 PG Care Time/CCT Total # of Minutes Spent Total Time Spent with Patient: Total time spent is greater than 50% in coordination of care (as documented) at patient's floor/unit and/or counseling patient: Coding Level of Care Code 62351 SUB INP/OBS CARE 3/50MIN Diagnoses PAD (peripheral artery disease) I73.9
== END 2022-12-18 15:15 | DRG 252 ==
LOC: CC 08:36 → 2S 08:36 → 1E 17:59 → SUATTDRO 12-12 09:52 → 2S 12-16 16:21
PROC: CLB.AEB (2022-12-11 09:30)

== ENCOUNTER 2022-12-29 06:45 | Inpatient (IN) ==
--- NOTE | 2022-12-26 15:35 | Anesthesiology Consultation ---
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 Nation - aware of case -COVID screening: Per PAT nursing assessment on 12/26/22. Pt resides at [facility]. Covid positive residents at [facility] but patient has had no contact with them. No known COVID-19 positive contacts or current COVID-19 related symptoms. Travel screen negative. Unknown if patient is vaccinated for Covid. Preop Covid testing scheduled 12/27/22 at [facility] = will await results Pt admitted to [facility] 12/11/22- 12/18/22= admitted for severe PAD. Fever- source uncertain- possibly from LE digit wounds. Treated with abx. PADstatus post angioplasty on 12/11/2022 with complication of left thigh hematoma and rapid development of profound hypotension and decreased responsiveness. Diagnosed with postoperative heat hypovolemic shockresolved on discharge. Acute blood loss anemiastatus post 1 unit PRBCsmost likely from thigh hematoma. Hemoglobin stable on discharge. Continue follow-up with vascular medicine. Dry gangrenemostly nonhealing wounds lower extremity digits secondary to limb isc hemia and from severe PAD. Podiatry consulted. Fecal impaction GI consultedrecommended fleet enema and MiraLAX. Hypotensionwe will give bolus of normal saline. Acute encephalopathy- Now resolved. Laryngeal cancerstatus post tracheostomy 10 years ago. Supplemental oxygen as needed. Continue trach care. Hematoma left thighimprovement on repeat imaging. COPD/anxiety/GERD/hypertension. History Surgery Operation Date: 12/29/22 08:00 Proposed Procedures p Peripheral Angiogram w/Anesthesia - Criag Yee MD Height/Weight Height: 4 ft 10 in Weight: 39.553 kg Allergies Allergy/AdvReac Type Severity Reaction Status Date / Time alendronate sodium Allergy Unknown ON CENTRE Verified 12/26/22 14:38 CREST MED LIST penicillin V Allergy Unknown ON CENTRE Verified 12/26/22 14:38 CREST MED LIST sulfadiazine Allergy Unknown ON CENTRE Verified 12/26/22 14:38 CREST MED LIST Medications Home Medications Medication Instructions Recorded Confirmed Last Taken aspirin 81 mg chewable tablet 81 mg PO QAM 07/29/19 12/26/22 07/23/22 11:00 simethicone 80 mg chewable tablet 80 mg PO QID 07/30/19 12/26/22 08/24/22 20:30 (Gas Relief 80 (simethicone)) furosemide 20 mg tablet 20 mg PO QAM 12/31/19 12/26/22 08/24/22 14:00 metoprolol tartrate 50 mg tablet 50 mg PO BID 12/31/19 12/26/22 08/24/22 20:30 famotidine 20 mg tablet 20 mg PO BID 04/09/20 12/26/22 08/24/22 20:30 ferrous sulfate 325 mg (65 mg 325 mg PO QAM 04/09/20 12/26/22 08/24/22 14:00 iron) tablet pantoprazole 40 mg tablet,delayed 40 mg PO QAM 04/09/20 12/26/22 08/24/22 14:00 release (Protonix) multivitamin 1 tab PO QAM 05/13/20 12/26/22 08/24/22 14:00 lasmiditan 100 mg tablet (Reyvow) 100 mg PO Q24H PRN migraines 09/29/20 12/26/22 07/16/22 12:30 cyanocobalamin (vitamin B-12) 1,000 mcg PO QAM 01/20/21 12/26/22 08/24/22 14:00 1,000 mcg capsule buspirone 15 mg tablet 15 mg PO BID 04/21/21 12/26/22 08/24/22 20:30 ipratropium 0.5 mg-albuterol 3 mg 3 ml inhalation Q4H PRN Shortness 04/21/21 12/26/22 Unknown (2.5 mg base)/3 mL nebulization Of Breath soln amlodipine 2.5 mg tablet 2.5 mg PO QAM 08/02/21 12/26/22 08/24/22 14:00 diphenhydramine HCl 12.5 mg/5 mL 50 mg PO TID 08/02/21 12/26/22 08/24/22 20:30 oral elixir levothyroxine 75 mcg tablet 75 mcg PO QAM 08/02/21 12/26/22 08/24/22 14:00 lorazepam 0.5 mg tablet 0.5 mg PO BID 08/02/21 12/26/22 08/25/22 08:00 venlafaxine 75 mg tablet 75 mg PO BID 08/02/21 12/26/22 08/24/22 20:30 acetaminophen 500 mg tablet 1,000 mg PO UD PRN Pain (Scale 09/30/21 12/26/22 07/24/22 19:30 (Tylenol Extra Strength) Score 7-10) bismuth subsalicylate 262 mg/15 mL 524 mg PO Q6H PRN DIARRHEA/NAUSEA 09/30/21 12/26/22 07/27/22 11:00 oral suspension (Pepto-Bismol) docosanol 10 % topical cream 1 applic topical 5XD PRN Cold Sores 09/30/21 12/26/22 Unknown (Abreva) ondansetron HCl 4 mg tablet 4 mg PO Q8H PRN nausea/vomiting 09/30/21 12/26/22 09/30/21 (Zofran) gabapentin 100 mg capsule 200 mg PO BID 07/14/22 12/26/22 08/24/22 20:30 guaifenesin 100 mg/5 mL oral liquid 200 mg PO Q6H PRN Cough 07/14/22 12/26/22 Unknown topiramate 50 mg tablet 50 mg PO BID 30 days #60 tabs 07/14/22 12/26/22 08/24/22 20:30 Menthol-Ascorbic Acid Lozenge 1 flo PO Q4H PRN Sore Throat 07/20/22 12/26/22 Unknown aluminum-mag hydroxide-simethicone 30 ml PO Q8H PRN Acid Reflux 07/20/22 12/26/22 Unknown 225 mg-200 mg-25 mg/5 mL oral susp bisacodyl 10 mg rectal suppository 10 mg OK QPM PRN Constipation 07/20/22 12/26/22 Unknown (Dulcolax (bisacodyl)) erenumab-aooe 140 mg/mL 140 mg subcut Q30D 07/20/22 12/26/22 07/27/22 11:00 subcutaneous auto-injector magnesium hydroxide 800 mg/5 mL 30 mg PO UD PRN Constipation 07/20/22 12/26/22 07/20/22 21:15 oral suspension peg 400-propylene glycol (PF) 0.4 1 drp ophthalmic (eye) Q8H PRN Dry 07/20/22 12/26/22 07/27/22 11:00 %-0.3 % eye drops in a dropperette Eyes (Systane (PF)) sodium phosphates 19 gram-7 197 ml OK QAM PRN Constipation 07/20/22 12/26/22 Unknown gram/118 mL enema (Fleet Enema) sucralfate 1 gram tablet 1 g PO BID 07/20/22 12/26/22 08/24/22 20:30 clopidogrel 75 mg tablet 75 mg PO QAM 30 days #30 tabs 12/18/22 12/26/22 Unknown oxycodone 5 mg tablet 5 mg PO QID PRN Pain 12/26/22 12/26/22 Unknown oxycodone 5 mg tablet 10 mg PO QID PRN Pain 12/26/22 12/26/22 Unknown potassium chloride 20 mEq 20 meq PO TID 12/26/22 12/26/22 Unknown tablet,extended release Past Medical History Medical History (Updated 12/26/22 @ 15:31 by Vee [place] PAJadenC) Anemia Acute blood loss anemia while admitted per 12/18/22 discharge summary- suspect blood loss from hematoma- s/p 1 unit of PRBCs Anxiety Cancer Hx breast, lung and laryngeal cancer (larynx radiation, laryngectomy 2008 (current tracheostomy) Chronic kidney disease, stage 3a Chronic pain syndrome Chronic pulmonary aspiration Chronic respiratory failure Constipation COPD (chronic obstructive pulmonary disease) Depression with anxiety Difficulty walking Dry gangrene Mostly non healing wound to LE digits, secondary to limb ischemia from severe PAD Foot x ray show possible osteomyelitis- podiatry consulted while pt admitted to [facility] per 12/18/22 discharge summary Dysphagia Elevated hemidiaphragm GERD (gastroesophageal reflux disease) Hematoma of left thigh Angioplasty 12/11/22- complication of left thigh hematoma and rapid development of profound hypotension and decreased responsiveness - post operative hypovolemic shocks- resolved at discharge from [facility] 12/18/22 History of COVID-19 11/2020, pneumonia History of radiation therapy Hx of hypokalemia Hx of migraine headaches Hx of Raynaud's syndrome Hyperlipemia Hypertension Hypothyroidism Insomnia MRSA carrier Muscle weakness Generalized [facility] resident centre care resident On home oxygen therapy 2L via trach mask PAD (peripheral artery disease) S/p angioplasty 12/11/22 (with complications of left thigh hematoma) Pain of left lower extremity due to ischemia Tracheostomy in place Vitamin A deficiency 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 Family/Other Prostate cancer Sister , Passed age 64 of [place] No problems noted. Sister No problems noted. Sister No problems noted. Sister No problems noted. Brother No problems noted. Son , Passed as child in MVA No problems noted. Son , Passed as child in MVA No problems noted. Son No problems noted. Son No problems noted. Daughter No problems noted. 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) Social History Smoking Status: Unknown if ever smoked tobacco type: cigarettes Smoking cigarettes per day: 3 ppd, 40 pack year history, quit 2008 Hx Alcohol Use: No Hx Substance Use: No substance use type: does not use Physical Exam Vital Signs Last Vital Signs Temp 36.8 C 12/29/22 07:27 Pulse 72 12/29/22 07:27 Resp 22 12/29/22 07:27 BP 148/96 H 12/29/22 07:27 O2 Del Method Trach Collar 12/29/22 07:27 FiO2 28 12/29/22 07:27 Lab Results Anesthesia Preop Results Results Anesthesia Widget: WBC 11.54 K/ul (4.8-10.8) H 12/28/22 Hgb 12.6 g/dl (12.0-16.0) 12/28/22 Hct 40.3 % (37.0-47.0) 12/28/22 Plt 386 K/uL (130-400) 12/28/22 Na 139 mmol/L (136-145) 12/28/22 K 4.6 mmol/L (3.5-5.1) 12/28/22 Cl 101 mmol/L (98-107) 12/28/22 CO2 34 mmol/L (21-32) H 12/28/22 BUN 18 mg/dl (6-23) 12/28/22 Creat 1.11 mg/dl (0.6-1.2) 12/28/22 Glucose Level 89 mg/dl (70-99(Fasting)) 12/28/22 PT 12.5 Seconds (9.0-12.0) H 12/12/22 PTT 40.5 Seconds (21.0-31.0) H 12/12/22 INR 1.2 (0.9-1.1) H 12/12/22 COVID-19 PCR NEGATIVE (Negative) 12/27/22 SARS-CoV-2, RNA, NAAT NEGATIVE (NEGATIVE) 12/18/22 Blood Type B Positive 12/11/22 Antibody Screen NEGATIVE 12/11/22 Testing Laboratory Results Anemia chronic and stable Electrocardiogram Date: 12/12/22 Poor data quality Sinus tachycardia at 113bpm Otherwise normal EKG per cardio Chest X-Ray Date: 12/14/22 FINDINGS: Right subclavian central venous catheter is unchanged. Cardiac mediastinal and hilar silhouettes are within normal limits. Surgical clips of the neck. No pneumothorax, large pleural effusion or lobar airspace consolidation. Emphysema with chronic interstitial coarsening. IMPRESSION: Emphysema with chronic interstitial coarsening. Other Testing Aorta with Runoff CTA 12/15/22= There is rectosigmoid fecal impaction with mild rectal wall thickening and surrounding inflammation and fluid. Correlate clinically for evidence of stercoral proctitis. Emphysema. Advanced atherosclerotic disease is seen throughout the abdominal aorta and its major branches. The aorta is patent and normal in caliber. 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 This is unchanged from a 2020 examination. Advanced peripheral vascular disease is seen in both legs with two-vessel runoff to the foot. There is asymmetric soft tissue edema identified in the left thigh as well as the left foot/ankle. Trace pleural effusions. Abdomen/Pelvis CT 12/14/22= Interval decrease in hemorrhage within the left thigh and intramuscular hemorrhage within the left iliacus and left rectus femoris muscle since CT of December 11, 2022. No new sites of hemorrhage within the abdomen or pelvis. Large amount of stool within the rectum similar to prior exam. No bowel obstruction. Trace ascites. Body wall edema.
--- NOTE | 2022-12-27 13:14 | PAT Medication Instructions ---
Medication Instructions Date of Service December 27, 2022 Home Medications Medication Instructions Recorded topiramate 50 mg tablet 50 mg PO BID 30 days #60 tabs 07/14/22 clopidogrel 75 mg tablet 75 mg PO QAM 30 days #30 tabs 12/18/22 aspirin 81 mg chewable tablet 81 mg PO QAM simethicone 80 mg chewable tablet (Gas Relief 80 (simethicone)) 80 mg PO QID furosemide 20 mg tablet 20 mg PO QAM metoprolol tartrate 50 mg tablet 50 mg PO BID famotidine 20 mg tablet 20 mg PO BID ferrous sulfate 325 mg (65 mg iron) tablet 325 mg PO QAM pantoprazole 40 mg tablet,delayed release (Protonix) 40 mg PO QAM multivitamin 1 tab PO QAM lasmiditan 100 mg tablet (Reyvow) 100 mg PO Q24H PRN migraines cyanocobalamin (vitamin B-12) 1,000 mcg capsule 1,000 mcg PO QAM buspirone 15 mg tablet 15 mg PO BID ipratropium 0.5 mg-albuterol 3 mg (2.5 mg base)/3 mL nebulization soln 3 ml inhalation Q4H PRN Shortness Of Breath amlodipine 2.5 mg tablet 2.5 mg PO QAM diphenhydramine HCl 12.5 mg/5 mL oral elixir 50 mg PO TID levothyroxine 75 mcg tablet 75 mcg PO QAM lorazepam 0.5 mg tablet 0.5 mg PO BID venlafaxine 75 mg tablet 75 mg PO BID acetaminophen 500 mg tablet (Tylenol Extra Strength) 1,000 mg PO UD PRN Pain (Scale Score 7-10) bismuth subsalicylate 262 mg/15 mL oral suspension (Pepto-Bismol) 524 mg PO Q6H PRN DIARRHEA/NAUSEA docosanol 10 % topical cream (Abreva) 1 applic topical 5XD PRN Cold Sores ondansetron HCl 4 mg tablet (Zofran) 4 mg PO Q8H PRN nausea/vomiting gabapentin 100 mg capsule 200 mg PO BID guaifenesin 100 mg/5 mL oral liquid 200 mg PO Q6H PRN Cough topiramate 50 mg tablet 50 mg PO BID Menthol-Ascorbic Acid Lozenge 1 flo PO Q4H PRN Sore Throat aluminum-mag hydroxide-simethicone 225 mg-200 mg-25 mg/5 mL oral susp 30 ml PO Q8H PRN Acid Reflux bisacodyl 10 mg rectal suppository (Dulcolax (bisacodyl)) 10 mg CA QPM PRN Constipation erenumab-aooe 140 mg/mL subcutaneous auto-injector 140 mg subcut Q30D magnesium hydroxide 800 mg/5 mL oral suspension 30 mg PO UD PRN Constipation peg 400-propylene glycol (PF) 0.4 %-0.3 % eye drops in a dropperette (Systane (PF)) 1 drp ophthalmic (eye) Q8H PRN Dry Eyes sodium phosphates 19 gram-7 gram/118 mL enema (Fleet Enema) 197 ml CA QAM PRN Constipation sucralfate 1 gram tablet 1 g PO BID clopidogrel 75 mg tablet 75 mg PO QAM oxycodone 5 mg tablet 5 mg PO QID PRN Pain oxycodone 5 mg tablet 10 mg PO QID PRN Pain potassium chloride 20 mEq tablet,extended release 20 meq PO TID Continue as directed erenumab-aooe 140 mg/mL subcutaneous auto-injector 140 mg subcut Q30D ASK your prescriber and surgeon aspirin 81 mg chewable tablet 81 mg PO QAM clopidogrel 75 mg tablet 75 mg PO QAM STOP taking 24 hours before surgery docosanol 10 % topical cream (Abreva) 1 applic topical 5XD PRN Cold Sores DO NOT take the morning of surgery simethicone 80 mg chewable tablet (Gas Relief 80 (simethicone)) 80 mg PO QID furosemide 20 mg tablet 20 mg PO QAM ferrous sulfate 325 mg (65 mg iron) tablet 325 mg PO QAM multivitamin 1 tab PO QAM cyanocobalamin (vitamin B-12) 1,000 mcg capsule 1,000 mcg PO QAM diphenhydramine HCl 12.5 mg/5 mL oral elixir 50 mg PO TID bismuth subsalicylate 262 mg/15 mL oral suspension (Pepto-Bismol) 524 mg PO Q6H PRN DIARRHEA/NAUSEA guaifenesin 100 mg/5 mL oral liquid 200 mg PO Q6H PRN Cough Menthol-Ascorbic Acid Lozenge 1 flo PO Q4H PRN Sore Throat aluminum-mag hydroxide-simethicone 225 mg-200 mg-25 mg/5 mL oral susp 30 ml PO Q8H PRN Acid Reflux magnesium hydroxide 800 mg/5 mL oral suspension 30 mg PO UD PRN Constipation sodium phosphates 19 gram-7 gram/118 mL enema (Fleet Enema) 197 ml CA QAM PRN Constipation sucralfate 1 gram tablet 1 g PO BID potassium chloride 20 mEq tablet,extended release 20 meq PO TID Take morning of surgery With a small sip of water, OTHERWISE NOTHING TO EAT OR DRINK AFTER MIDNIGHT: metoprolol tartrate 50 mg tablet 50 mg PO BID famotidine 20 mg tablet 20 mg PO BID pantoprazole 40 mg tablet,delayed release (Protonix) 40 mg PO QAM buspirone 15 mg tablet 15 mg PO BID ipratropium 0.5 mg-albuterol 3 mg (2.5 mg base)/3 mL nebulization soln 3 ml inhalation Q4H PRN Shortness Of Breath (if needed) amlodipine 2.5 mg tablet 2.5 mg PO QAM levothyroxine 75 mcg tablet 75 mcg PO QAM lorazepam 0.5 mg tablet 0.5 mg PO BID venlafaxine 75 mg tablet 75 mg PO BID acetaminophen 500 mg tablet (Tylenol Extra Strength) 1,000 mg PO UD PRN Pain (Scale Score 7-10) (if needed) lasmiditan 100 mg tablet (Reyvow) 100 mg PO Q24H PRN migraines (if needed) ondansetron HCl 4 mg tablet (Zofran) 4 mg PO Q8H PRN nausea/vomiting (if needed) gabapentin 100 mg capsule 200 mg PO BID topiramate 50 mg tablet 50 mg PO BID peg 400-propylene glycol (PF) 0.4 %-0.3 % eye drops in a dropperette (Systane (PF)) 1 drp ophthalmic (eye) Q8H PRN Dry Eyes (if needed) oxycodone 5 mg tablet 5 mg PO QID PRN Pain (if needed) oxycodone 5 mg tablet 10 mg PO QID PRN Pain (if needed) Take evening before surgery simethicone 80 mg chewable tablet (Gas Relief 80 (simethicone)) 80 mg PO QID metoprolol tartrate 50 mg tablet 50 mg PO BID famotidine 20 mg tablet 20 mg PO BID lasmiditan 100 mg tablet (Reyvow) 100 mg PO Q24H PRN migraines (if needed) buspirone 15 mg tablet 15 mg PO BID ipratropium 0.5 mg-albuterol 3 mg (2.5 mg base)/3 mL nebulization soln 3 ml inhalation Q4H PRN Shortness Of Breath (if needed) diphenhydramine HCl 12.5 mg/5 mL oral elixir 50 mg PO TID lorazepam 0.5 mg tablet 0.5 mg PO BID venlafaxine 75 mg tablet 75 mg PO BID acetaminophen 500 mg tablet (Tylenol Extra Strength) 1,000 mg PO UD PRN Pain (Scale Score 7-10) (if needed) bismuth subsalicylate 262 mg/15 mL oral suspension (Pepto-Bismol) 524 mg PO Q6H PRN DIARRHEA/NAUSEA (if needed) ondansetron HCl 4 mg tablet (Zofran) 4 mg PO Q8H PRN nausea/vomiting (if needed) gabapentin 100 mg capsule 200 mg PO BID guaifenesin 100 mg/5 mL oral liquid 200 mg PO Q6H PRN Cough (if needed) topiramate 50 mg tablet 50 mg PO BID Menthol-Ascorbic Acid Lozenge 1 flo PO Q4H PRN Sore Throat (if needed) aluminum-mag hydroxide-simethicone 225 mg-200 mg-25 mg/5 mL oral susp 30 ml PO Q8H PRN Acid Reflux (if needed) bisacodyl 10 mg rectal suppository (Dulcolax (bisacodyl)) 10 mg CA QPM PRN Constipation (if needed) magnesium hydroxide 800 mg/5 mL oral suspension 30 mg PO UD PRN Constipation (if needed) peg 400-propylene glycol (PF) 0.4 %-0.3 % eye drops in a dropperette (Systane (PF)) 1 drp ophthalmic (eye) Q8H PRN Dry Eyes (if needed) sucralfate 1 gram tablet 1 g PO BID oxycodone 5 mg tablet 5 mg PO QID PRN Pain oxycodone 5 mg tablet 10 mg PO QID PRN Pain potassium chloride 20 mEq tablet,extended release 20 meq PO TID Other Notes If you have any questions please call us at [phone] or [phone] or [phone] or [phone]
--- NOTE | 2022-12-29 07:48 | History & Physical Report ---
Date of Service December 29, 2022 Assessment & Plan (1) PAD (peripheral artery disease): Plan: Proceed with left lower extremity endovascular intervention via left brachial artery with anesthesia History of Present Illness Primary Care Provider: [facility] Ms. Maria is a 72-year-old woman with a history of remote laryngeal cancer post laryngectomy with tracheostomy, COPD, Raynaud's, lower extremity PAD and critical limb ischemia here for left lower extremity endovascular intervention. Patient previously underwent left COOK SUPERVISOR angioplasty on 12/12/2022. Noted at that time to have severe residual SFA disease which was later confirmed on CTA. Post angioplasty procedure course complicated by large thigh hematoma, acute blood loss anemia and postoperative shock thought in part secondary to sedation. Since procedure reports improved but still present left lower extremity rest pain. Still with gangrene involving second through fifth toes. Allergies Allergy/AdvReac Type Severity Reaction Status Date / Time alendronate sodium Allergy Unknown [facility] Verified 12/26/22 14:38 [facility] penicillin V Allergy Unknown ON [facility] Verified 12/26/22 14:38 [facility] sulfadiazine Allergy Unknown ON [facility] Verified 12/26/22 14:38 [facility] Home Medications Medication Instructions Recorded Confirmed Type aspirin 81 mg chewable tablet 81 mg PO QAM 07/29/19 12/26/22 History simethicone 80 mg chewable tablet 80 mg PO QID 07/30/19 12/26/22 History (Gas Relief 80 (simethicone)) furosemide 20 mg tablet 20 mg PO QAM 12/31/19 12/26/22 History metoprolol tartrate 50 mg tablet 50 mg PO BID 12/31/19 12/26/22 History famotidine 20 mg tablet 20 mg PO BID 04/09/20 12/26/22 History ferrous sulfate 325 mg (65 mg 325 mg PO QAM 04/09/20 12/26/22 History iron) tablet pantoprazole 40 mg tablet,delayed 40 mg PO QAM 04/09/20 12/26/22 History release (Protonix) multivitamin 1 tab PO QAM 05/13/20 12/26/22 History lasmiditan 100 mg tablet (Reyvow) 100 mg PO Q24H PRN migraines 09/29/20 12/26/22 History cyanocobalamin (vitamin B-12) 1,000 mcg PO QAM 01/20/21 12/26/22 History 1,000 mcg capsule buspirone 15 mg tablet 15 mg PO BID 04/21/21 12/26/22 History ipratropium 0.5 mg-albuterol 3 mg 3 ml inhalation Q4H PRN Shortness 04/21/21 12/26/22 History (2.5 mg base)/3 mL nebulization Of Breath soln amlodipine 2.5 mg tablet 2.5 mg PO QAM 08/02/21 12/26/22 History diphenhydramine HCl 12.5 mg/5 mL 50 mg PO TID 08/02/21 12/26/22 History oral elixir levothyroxine 75 mcg tablet 75 mcg PO QAM 08/02/21 12/26/22 History lorazepam 0.5 mg tablet 0.5 mg PO BID 08/02/21 12/26/22 History venlafaxine 75 mg tablet 75 mg PO BID 08/02/21 12/26/22 History acetaminophen 500 mg tablet 1,000 mg PO UD PRN Pain (Scale 09/30/21 12/26/22 History (Tylenol Extra Strength) Score 7-10) bismuth subsalicylate 262 mg/15 mL 524 mg PO Q6H PRN DIARRHEA/NAUSEA 09/30/21 12/26/22 History oral suspension (Pepto-Bismol) docosanol 10 % topical cream 1 applic topical 5XD PRN Cold Sores 09/30/21 12/26/22 History (Abreva) ondansetron HCl 4 mg tablet 4 mg PO Q8H PRN nausea/vomiting 09/30/21 12/26/22 History (Zofran) gabapentin 100 mg capsule 200 mg PO BID 07/14/22 12/26/22 History guaifenesin 100 mg/5 mL oral liquid 200 mg PO Q6H PRN Cough 07/14/22 12/26/22 History topiramate 50 mg tablet 50 mg PO BID 30 days #60 tabs 07/14/22 12/26/22 Rx Menthol-Ascorbic Acid Lozenge 1 flo PO Q4H PRN Sore Throat 07/20/22 12/26/22 History aluminum-mag hydroxide-simethicone 30 ml PO Q8H PRN Acid Reflux 07/20/22 12/26/22 History 225 mg-200 mg-25 mg/5 mL oral susp bisacodyl 10 mg rectal suppository 10 mg NC QPM PRN Constipation 07/20/22 12/26/22 History (Dulcolax (bisacodyl)) erenumab-aooe 140 mg/mL 140 mg subcut Q30D 07/20/22 12/26/22 History subcutaneous auto-injector magnesium hydroxide 800 mg/5 mL 30 mg PO UD PRN Constipation 07/20/22 12/26/22 History oral suspension peg 400-propylene glycol (PF) 0.4 1 drp ophthalmic (eye) Q8H PRN Dry 07/20/22 12/26/22 History %-0.3 % eye drops in a dropperette Eyes (Systane (PF)) sodium phosphates 19 gram-7 197 ml NC QAM PRN Constipation 07/20/22 12/26/22 History gram/118 mL enema (Fleet Enema) sucralfate 1 gram tablet 1 g PO BID 07/20/22 12/26/22 History clopidogrel 75 mg tablet 75 mg PO QAM 30 days #30 tabs 12/18/22 12/26/22 Rx oxycodone 5 mg tablet 5 mg PO QID PRN Pain 12/26/22 12/26/22 History oxycodone 5 mg tablet 10 mg PO QID PRN Pain 12/26/22 12/26/22 History potassium chloride 20 mEq 20 meq PO TID 12/26/22 12/26/22 History tablet,extended release Past Med/Surg History Medical History (Updated 12/26/22 @ 15:31 by Vee Montgomery PA-C) Anemia Acute blood loss anemia while admitted per 12/18/22 discharge summary- suspect blood loss from hematoma- s/p 1 unit of PRBCs Anxiety Cancer Hx breast, lung and laryngeal cancer (larynx radiation, laryngectomy 2008 (current tracheostomy) Chronic kidney disease, stage 3a Chronic pain syndrome Chronic pulmonary aspiration Chronic respiratory failure Constipation COPD (chronic obstructive pulmonary disease) Depression with anxiety Difficulty walking Dry gangrene Mostly non healing wound to LE digits, secondary to limb ischemia from severe PAD Foot x ray show possible osteomyelitis- podiatry consulted while pt admitted to [facility] per 12/18/22 discharge summary Dysphagia Elevated hemidiaphragm GERD (gastroesophageal reflux disease) Hematoma of left thigh Angioplasty 12/11/22- complication of left thigh hematoma and rapid development of profound hypotension and decreased responsiveness - post operative hypovolemic shocks- resolved at discharge from [facility] 12/18/22 History of COVID-19 11/2020, pneumonia History of radiation therapy Hx of hypokalemia Hx of migraine headaches Hx of Raynaud's syndrome Hyperlipemia Hypertension Hypothyroidism Insomnia MRSA carrier Muscle weakness Generalized [facility] resident [facility] resident On home oxygen therapy 2L via trach mask PAD (peripheral artery disease) S/p angioplasty 12/11/22 (with complications of left thigh hematoma) Pain of left lower extremity due to ischemia Tracheostomy in place Vitamin A 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 Family/Other Prostate cancer Sister , Passed age 64 of [place] No problems noted. Sister No problems noted. Sister No problems noted. Sister No problems noted. Brother No problems noted. Son , Passed as child in MVA No problems noted. Son , Passed as child in MVA No problems noted. Son No problems noted. Son No problems noted. Daughter No problems noted. Social History Smoking Status: Unknown if ever smoked Cigarettes Per Day: 3 ppd, 40 pack year history, quit 2008; Hx Alcohol Use: No Hx Substance Use: No Preferred Language: Danish Communication Ability: Effective Visual Impairment: Limited Hearing Ability: Normal Vp Public Relations Required: No Beliefs That Will Affect Care: None marital status: Single Current Living Situation: Longterm Current Living Situation Comment: centre [facility] current occupational status: retired current occupation: Retired Feels Safe at Home: Yes caffeine: Yes (0-1 cup / day ) during the past year weight has: remained stable Assistive Devices: Wheelchair Assistive Devices Comment: O2 VIA TRACH MASK- PRN Review of Systems All systems reviewed & are unremarkable except as noted in HPI & below Physical Exam Constitutional: WD/WN, vitals as above Eyes: + scleral abnormality Respiratory: normal respiratory effort, lungs clear to auscultation Cardiovascular: RRR, no murmur, no edema Dopplerable left DP pulse. 2+ left brachial. Nonpalpable right radial. Diminished left radial Skin: Dry gangrene involving second through fifth toes on left foot. No surrounding erythema. Multiple areas of discoloration involving digits on hand. Sluggish capillary refill bilaterally in upper extremities. ASA Classification ASA ASA4 Results & Data ([facility]) Vital Signs (Past 12 Hours) Vital Signs Temp Pulse Resp BP O2 Del Method FiO2 12/29/22 07:27 98.2 F 72 22 148/96 H Trach Collar 28 12/29/22 07:08 Trach Collar
[2022-12-29] MEDS ORDERED: KETAMINE 50 MG/5 ML SYRINGE ONE (07:53)
[2022-12-29] MEDS ORDERED: MIDAZOLAM HCL 1 MG/ML 2ML VIAL ONE (07:57)
[2022-12-29] MEDS ORDERED: ATROPINE SULFATE 0.1 MG/ML 10ML SYR IV PRN (08:13)
[2022-12-29] MEDS ORDERED: ePHEDrine sulfate 50 MG/ML AMP IV PRN (08:13)
[2022-12-29] MEDS ORDERED: LIDOCAINE 2% MPF LOCAL 5 ML VIAL INFIL ONE (08:49)
[2022-12-29] MEDS ORDERED: PHENYLEPHRINE 100MCG/ML 5ML SYR ONE (08:49)
[2022-12-29] MEDS ORDERED: PROPOFOL IV EMULSION 10 MG/ML 20 ML VIAL IV ONE ×2 (08:49→09:35)
[2022-12-29] MEDS ORDERED: niCARdipine HCL INJ 2.5 MG/ML 10 ML AMP ONE (08:57)
[2022-12-29] MEDS ORDERED: NITROGLYCERIN/D5W 100MCG/ML 20ML SYR ONE (08:57)
[2022-12-29] MEDS ORDERED: HEPARIN SOD (PORCINE) 1000 UNIT/ML ONE (09:27)
--- NOTE | 2022-12-29 10:31 | Endovascular Procedure Note ---
PG Endovascular Procedure Rpt Pre & Post Diagnosis Peripheral arterial disease I identified the patient and participated in the time-out.: Yes Procedure Operation Date: 12/29/22 08:00 Actual Procedures p Cineradiography w/Routine Exam - Craig Yee MD Surgeon Epi Yee MD Prepress Technician Deibler Estimated Blood Loss 15 Findings See Below Left lower extremity-- -Common iliac diffuse 30% disease, external iliac 30% diffuse disease, internal iliac widely patent -STONE CARRIAGE OPERATOR patent post angioplasty with 20% residual stenosis. -SFA diffuse severe disease up to 90% in the midsegment -Popliteal patent with mild disease -RAMÓN patent proximally -Peroneal patent -UNDERWRITING SERVICE REPRESENTATIVE occluded (previously shown to reconstitute at the ankle and gives off plantar arteries). Anesthesia Type RN Sedation Radiation Exposure (mGv) Radiation (mGy): 195 Contrast Contrast: 70 Complications none Disposition Disposition: Mother Baby Rn Holding Description of Procedure Left brachial artery access obtained under ultrasound guidance, short 5Fr sheath placed 5 Fr multipurpose catheter navigated into left iliac artery over a glide advantage wire Selective proximal left lower extremity angiography with multipurpose catheter and external iliac 6 Fr 90 cm destination sheath placed from left brachial artery to left external iliac Diffuse SFA disease crossed with glide advantage wire and 4.0 balloon Angioplasty of entire length of SFA with 4.0 balloon Distal to mid SFA stented with 5.0 x 120 mm Supera stent Stent postdilated with 5.0 balloon Mid to proximal SFA stented with 5.0 x 80 mm Supera stent Ostial to proximal SFA stented with 5.0 x 80 mm self-expanding stent Stents postdilated with 5.0 balloon IA vasodilators administered. Residual ostial stenosis of SFA STONE CARRIAGE OPERATOR/ostial SFA treated with 5.0 x 40 mm Lutonix drug-eluting balloon Post procedure good angiographic result, no evidence of dissection. Treated STONE CARRIAGE OPERATOR segment and stented SFA well-expanded. Contrast used: 70 Deep sedation with propofol per Dr. Nation Access closure: Manual hold in holding area Summary: 1. Left lower extremity --30% diffuse external iliac, diffuse severe SFA disease up to 90% in the midsegment. Two-vessel runoff to the foot via RAMÓN and peroneal. 2. Successful angioplasty and stenting of entire length of left SFA with 3 stents (prox 5.0 x 80 Lifestream SES, mid 5.0 x 80 Supera, distal 5.0 x 120 Supera). 3. Successful angioplasty of left STONE CARRIAGE OPERATOR, ostial SFA with drug-eluting balloon (Lutonix 5.0 x 40). Recommendations: Recommend dual therapy with clopidogrel, anticoagulation for 1 month. Then continue on anticoagulation alone. Follow-up non-invasive vascular testing in 1-2 weeks. I attest to the content of the Intraoperative Record and any orders documented therein. Any exceptions are noted below. Vascular Charges Angiography/Venography Procedure 1: Angiography/Venography charges: [id number] Initial 3rd order or selective abd, pelvic, or LE branch Lower Extremity Interventions Procedure 1: Lower Extremity Intervention charges: [id number] Stent placement(s), femoral, popliteal artery(s), unilateral Additional Services Procedure 1: Additional Services Charges: 11230 Ultrasound guidance - vascular access
[2022-12-29] MEDS ORDERED: fentaNYL citrate 100 MCG/2 ML VIAL ONE ×2 (12:07→12:08)
[2022-12-29] MEDS ORDERED: PROTAMINE SULFATE 10 MG/ML 5 ML VIAL IV ONE ×2 (12:07→12:09)
[2022-12-29] MEDS ORDERED: ACETAMINOPHEN 325 MG TAB ONE (14:22)
[2022-12-29] MEDS ORDERED: ACETAMINOPHEN SUSP 325 MG/10.15 ML UDC PO STA (14:46)
--- NOTE | 2022-12-29 15:28 | Hospitalist Consultation ---
Date of Consultation December 29, 2022 Assessment & Plan (1) PAD (peripheral artery disease): PAD - s/p 12/29 angioplasty and stenting of entire length of SFA with 3 stents, and angioplasty of left WAX BLENDER, ostial SFA with drug-eluting balloon. - c/b RUE hematoma. Hematoma is softening at bedside, radial pulse is intact, sensation of soft touch is intact in the hands patient reports weakness to weaver apprentice strength but no increased weakness acutely. Neurovascular checks continued -Left foot with dry gangrene of the toes, see photo and H&P. Stable. No pain. Doppler performed at bedside, dopplerable DP pulse is intact Preoperative hemoglobin 12.6. CBC trended. Renal function is with creatinine less than 1.2 at baseline, 1.1 preoperatively. 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 twice daily Anxiety Venlafaxine 75 mg p.o. twice daily History of migraines Continue Topamax 50 mg p.o. twice daily Continue home Reyvow 100 mg as needed daily GERD Continue Protonix 40 mg daily Hypothyroidism Synthroid 75 mcg p.o. daily We will continue to follow overnight, CBC every 12 hours added given history of blood loss anemia requiring transfusion from hematomas in the past and excess hematoma. This appears to be improving at hospitalist assessment, with no signs of compartment syndrome at time of exam. (2) Tracheostomy in place: (3) Hyperlipemia: (4) Hypertension: (5) Hypothyroidism: (6) Chronic respiratory failure: (7) COPD (chronic obstructive pulmonary disease): History of Present Illness Attending Physician: Epi Yee MD History of Present Illness Yane Maria is a 72-year-old female with a past medical history of peripheral artery disease, laryngeal cancer s/p tracheostomy 10 years ago and trach collar, COPD, anxiety, GERD, hypothyroidism who was recently admitted to the ICU from 12/11/2022 - 12/12/2022 and discharged 12/18/2022 who presented to [facility] for scheduled intervention of residual left SFA disease. Patient with known common iliac diffuse disease, patent internal iliac, WAX BLENDER s/p prior angioplasty, SFA severe diffuse disease, and occluded left GRAPHIC MANAGER. 12/29/22 patient underwent successful angioplasty and stenting of entire length of SFA with 3 stents, and angioplasty of left WAX BLENDER, ostial SFA with drug-eluting balloon. Vascular is following, and anticipate dual therapy Plavix/anticoagulation for 1 month then anticoagulation monotherapy. Given patient's high risk and prior complications we have been consulted for assistance with postoperative management. Patient unfortunately with hematoma at left brachial access site post procedurally. She has rainouts with poor circulation at baseline. She is being admitted to PCU for close postoperative monitoring. Yane is seen at the bedside in the PCU. Communication is assisted by writing, and patient pantomime's, verbal communication limited by tracheostomy. Patient indicates that she is having pain at her left arm at her access site, is pending pain medications. She denies any pain in her feet, abdomen. Denies chest pain, chest pressure, headache, fever, chills. She denies lightheadedn ess/dizziness. Medical History: Reviewed Medications: Reviewed Surgical History: Reviewed Allergies: Reviewed Social History: Reviewed Code Status: Full Allergies Allergy/AdvReac Type Severity Reaction Status Date / Time alendronate sodium Allergy Unknown ON CENTRE Verified 12/26/22 14:38 CREST MED LIST penicillin V Allergy Unknown ON CENTRE Verified 12/26/22 14:38 CREST MED LIST sulfadiazine Allergy Unknown ON CENTRE Verified 12/26/22 14:38 CREST MED LIST Home Medications Medication Instructions Recorded Confirmed Type aspirin 81 mg chewable tablet 81 mg PO QAM 07/29/19 12/26/22 History simethicone 80 mg chewable tablet 80 mg PO QID 07/30/19 12/26/22 History (Gas Relief 80 (simethicone)) furosemide 20 mg tablet 20 mg PO QAM 12/31/19 12/26/22 History metoprolol tartrate 50 mg tablet 50 mg PO BID 12/31/19 12/26/22 History famotidine 20 mg tablet 20 mg PO BID 04/09/20 12/26/22 History ferrous sulfate 325 mg (65 mg 325 mg PO QAM 04/09/20 12/26/22 History iron) tablet pantoprazole 40 mg tablet,delayed 40 mg PO QAM 04/09/20 12/26/22 History release (Protonix) multivitamin 1 tab PO QAM 05/13/20 12/26/22 History lasmiditan 100 mg tablet (Reyvow) 100 mg PO Q24H PRN migraines 09/29/20 12/26/22 History cyanocobalamin (vitamin B-12) 1,000 mcg PO QAM 01/20/21 12/26/22 History 1,000 mcg capsule buspirone 15 mg tablet 15 mg PO BID 04/21/21 12/26/22 History ipratropium 0.5 mg-albuterol 3 mg 3 ml inhalation Q4H PRN Shortness 04/21/21 12/26/22 History (2.5 mg base)/3 mL nebulization Of Breath soln amlodipine 2.5 mg tablet 2.5 mg PO QAM 08/02/21 12/26/22 History diphenhydramine HCl 12.5 mg/5 mL 50 mg PO TID 08/02/21 12/26/22 History oral elixir levothyroxine 75 mcg tablet 75 mcg PO QAM 08/02/21 12/26/22 History lorazepam 0.5 mg tablet 0.5 mg PO BID 08/02/21 12/26/22 History venlafaxine 75 mg tablet 75 mg PO BID 08/02/21 12/26/22 History acetaminophen 500 mg tablet 1,000 mg PO UD PRN Pain (Scale 09/30/21 12/26/22 History (Tylenol Extra Strength) Score 7-10) bismuth subsalicylate 262 mg/15 mL 524 mg PO Q6H PRN DIARRHEA/NAUSEA 09/30/21 12/26/22 History oral suspension (Pepto-Bismol) docosanol 10 % topical cream 1 applic topical 5XD PRN Cold Sores 09/30/21 12/26/22 History (Abreva) ondansetron HCl 4 mg tablet 4 mg PO Q8H PRN nausea/vomiting 09/30/21 12/26/22 History (Zofran) gabapentin 100 mg capsule 200 mg PO BID 07/14/22 12/26/22 History guaifenesin 100 mg/5 mL oral liquid 200 mg PO Q6H PRN Cough 07/14/22 12/26/22 History topiramate 50 mg tablet 50 mg PO BID 30 days #60 tabs 07/14/22 12/26/22 Rx Menthol-Ascorbic Acid Lozenge 1 flo PO Q4H PRN Sore Throat 07/20/22 12/26/22 History aluminum-mag hydroxide-simethicone 30 ml PO Q8H PRN Acid Reflux 07/20/22 12/26/22 History 225 mg-200 mg-25 mg/5 mL oral susp bisacodyl 10 mg rectal suppository 10 mg AK QPM PRN Constipation 07/20/22 12/26/22 History (Dulcolax (bisacodyl)) erenumab-aooe 140 mg/mL 140 mg subcut Q30D 07/20/22 12/26/22 History subcutaneous auto-injector magnesium hydroxide 800 mg/5 mL 30 mg PO UD PRN Constipation 07/20/22 12/26/22 History oral suspension peg 400-propylene glycol (PF) 0.4 1 drp ophthalmic (eye) Q8H PRN Dry 07/20/22 12/26/22 History %-0.3 % eye drops in a dropperette Eyes (Systane (PF)) sodium phosphates 19 gram-7 197 ml AK QAM PRN Constipation 07/20/22 12/26/22 History gram/118 mL enema (Fleet Enema) sucralfate 1 gram tablet 1 g PO BID 07/20/22 12/26/22 History clopidogrel 75 mg tablet 75 mg PO QAM 30 days #30 tabs 12/18/22 12/26/22 Rx oxycodone 5 mg tablet 5 mg PO QID PRN Pain 12/26/22 12/26/22 History oxycodone 5 mg tablet 10 mg PO QID PRN Pain 12/26/22 12/26/22 History potassium chloride 20 mEq 20 meq PO TID 12/26/22 12/26/22 History tablet,extended release Patient History Medical History (Updated 12/26/22 @ 15:31 by Vee Montgomery PA-C) Anemia Acute blood loss anemia while admitted per 12/18/22 discharge summary- suspect blood loss from hematoma- s/p 1 unit of PRBCs Anxiety Cancer Hx breast, lung and laryngeal cancer (larynx radiation, laryngectomy 2008 (current tracheostomy) Chronic kidney disease, stage 3a Chronic pain syndrome Chronic pulmonary aspiration Chronic respiratory failure Constipation COPD (chronic obstructive pulmonary disease) Depression with anxiety Difficulty walking Dry gangrene Mostly non healing wound to LE digits, secondary to limb ischemia from severe PAD Foot x ray show possible osteomyelitis- podiatry consulted while pt admitted to [facility] per 12/18/22 discharge summary Dysphagia Elevated hemidiaphragm GERD (gastroesophageal reflux disease) Hematoma of left thigh Angioplasty 12/11/22- complication of left thigh hematoma and rapid development of profound hypotension and decreased responsiveness - post operative hypovolemic shocks- resolved at discharge from [facility] 12/18/22 History of COVID-19 11/2020, pneumonia History of radiation therapy Hx of hypokalemia Hx of migraine headaches Hx of Raynaud's syndrome Hyperlipemia Hypertension Hypothyroidism Insomnia MRSA carrier Muscle weakness Generalized group home resident centre care resident On home oxygen therapy 2L via trach mask PAD (peripheral artery disease) S/p angioplasty 12/11/22 (with complications of left thigh hematoma) Pain of left lower extremity due to ischemia Tracheostomy in place 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 Family/Other Prostate cancer Sister , Passed age [address] No problems noted. Sister No problems noted. Sister No problems noted. Sister No problems noted. Brother No problems noted. Son , Passed as child in MVA No problems noted. Son , Passed as child in MVA No problems noted. Son No problems noted. Son No problems noted. Daughter No problems noted. 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 Patient pantomime's and assists communication with writing. No acute distress. Alert and follows commands. HEENT: Tracheostomy in place Pulm: Symmetrical chest rise. No increased work of breathing. No respiratory distress. No wheezing at bedside exam Cardiac: RRR Radial pulses intact and symmetrical. Extremities: Left DP intact to Doppler. Bilateral radial pulse intact to palpation. Sensation soft touch intact in hands, diminished in feet. Hematoma of the left upper extremity at access site is present, softening on serial exam. Is not firm/contracted. Results & Data Results & Data ([facility]) Vital Signs (Past 12 Hours) Vital Signs Temp Pulse Resp BP Pulse Ox O2 Del Method O2 Flow Rate 12/29/22 15:00 64 16 117/96 98 Trach Collar 6 12/29/22 14:30 64 16 115/76 98 Trach Collar 6 12/29/22 14:00 65 16 118/91 99 Trach Collar 6 12/29/22 13:30 65 16 115/89 99 Trach Collar 6 12/29/22 13:15 64 16 135/86 98 Trach Collar 6 12/29/22 13:00 62 14 143/93 H 95 Trach Collar 6 12/29/22 12:45 62 16 111/89 95 Trach Collar 6 12/29/22 12:30 62 14 137/76 94 Trach Collar 6 12/29/22 12:15 64 16 99/60 L 94 Trach Collar 6 12/29/22 12:00 68 16 144/86 H 95 Trach Collar 6 12/29/22 11:45 68 16 144/89 H 95 Trach Collar 6 12/29/22 11:30 62 14 154/100 H 98 Trach Collar 6 12/29/22 11:15 62 14 136/71 98 Trach Collar 6 12/29/22 11:00 64 16 136/68 98 Trach Collar 6 12/29/22 10:45 65 16 136/75 98 Trach Collar 6 12/29/22 10:32 63 16 110/72 98 Room Air 12/29/22 07:27 36.8 C 72 22 148/96 H Trach Collar 12/29/22 07:08 Trach Collar FiO2 12/29/22 15:00 28 12/29/22 14:30 28 12/29/22 14:00 28 12/29/22 13:30 28 12/29/22 13:15 28 12/29/22 13:00 28 12/29/22 12:45 28 12/29/22 12:30 28 12/29/22 12:15 28 12/29/22 12:00 28 12/29/22 11:45 28 12/29/22 11:30 28 12/29/22 11:15 28 12/29/22 11:00 28 12/29/22 10:45 28 12/29/22 10:32 12/29/22 07:27 28 12/29/22 07:08 PG Care Time/CCT Total # of Minutes Spent Total Time Spent with Patient: Total time spent is greater than 50% in coordination of care (as documented) at patient's floor/unit and/or counseling patient: Coding Level of Care Code INP/OBS CONSULT LVL 4, 60 MIN Diagnoses PAD (peripheral artery disease) I73.[address] Z93.0 Hyperlipemia E78.5 Hypertension I10 Hypertension type: essential hypertension Hypothyroidism E03.9 Hypothyroidism type: unspecified Chronic respiratory failure J96.11 Respiratory failure complication: hypoxia COPD (chronic obstructive pulmonary disease) J43.9 COPD type: emphysema Emphysema type: unspecified (4) Hypertension Hypertension type: essential hypertension Qualified Code(s): I10 - Essential (primary) hypertension (5) Hypothyroidism Hypothyroidism type: unspecified Qualified Code(s): E03.9 - Hypothyroidism, unspecified (6) Chronic respiratory failure Respiratory failure complication: hypoxia Qualified Code(s): J96.11 - Chronic respiratory failure with hypoxia (7) COPD (chronic obstructive pulmonary disease) COPD type: emphysema Emphysema type: unspecified Qualified Code(s): J43.9 - Emphysema, unspecified
[2022-12-29] MEDS ORDERED: guaiFENesin SUGAR FREE 100 MG/5 ML UDC PO PRN (15:29)
[2022-12-29] MEDS ORDERED: ALBUT/IPRATROP 3MG/0.5MG NEB 3 ML VIAL INH PRN (15:29)
[2022-12-29] MEDS ORDERED: SOD PHOSPHATE/SOD BIPHOSPHATE ENEMA 132 ML BTL PR PRN (15:29)
[2022-12-29] MEDS ORDERED: SODIUM CHLORIDE 0.9% 1000ML 1,000 ML IV SCH (15:30)
[2022-12-29] MEDS ORDERED: ONDANSETRON 4 MG OD TAB PO PRN (15:50)
[2022-12-29] MEDS ORDERED: ARTIFICIAL TEARS OP PRN (15:51)
[2022-12-29] MEDS: MoRPHine SULFATE 2 MG/ML CARP IV PRN ×2 (16:14→20:16)
--- NOTE | 2022-12-29 17:21 | XCELERA ---
[id number]
[2022-12-29 17:26] LABS: Hematocrit (blood only) 34.7 % (37.0-47.0); Hemoglobin 10.5 g/dl (12.0-16.0); Mean Corpuscular Hemoglobin 29.4 pg (25.0-34.0); Mean Corpuscular Hgb Conc 30.3 g/dL (32.0-36.0); Mean Corpuscular Volume 97.2 fL (80.0-100.0); Mean Platelet Volume 9.9 fL (9.4-12.4); Platelet Count 447 K/uL (130-400); RDW Coefficient of Variation 15.3 % (11.5-14.5); RDW Standard Deviation 54.8 fL (36.4-46.3); Red Blood Count 3.57 M/uL (4.20-5.40); White Blood Count 18.09 K/ul (4.8-10.8)
[2022-12-29 17:45] LABS: BUN Creatinine Ratio 16.8 (10-20); Calcium 9.2 mg/dl (8.5-10.1); Creatinine Clr Calc Pharmacy 30.1 ml/min; Est GFR (African American) 60.5 ml/min; Est GFR (Non-African American) 52.2 ml/min; Potassium 5.3 mmol/L (3.5-5.1)
[2022-12-29] MEDS: oxyCODONE HCL IR 5 MG TAB (IMMEDIATE RELEASE) PO PRN ×2 (17:46→23:51)
[2022-12-29 17:55] LABS: INR 1.1 (0.9-1.1); Partial Thromboplastin Ratio 0.9; Partial Thromboplastin Time 25.6 Seconds (21.0-31.0); Prothrombin Time 11.2 Seconds (9.0-12.0)
[2022-12-29] MEDS: SIMETHICONE 80 MG CHEW PO SCH ×2 (18:14→20:22)
[2022-12-29] MEDS: ACETAMINOPHEN 325 MG TAB PO PRN (20:20)
[2022-12-29] MEDS: diphenhydrAMINE HCL 25 MG/10 ML UDC PO SCH (20:21)
[2022-12-29] MEDS: LORazepam 0.5 MG TAB PO SCH (20:21)
[2022-12-29] MEDS: VENLAFAXINE HCL 50 MG TAB PO SCH (20:22)
[2022-12-29] MEDS: SUCRALFATE 1 GM TAB PO SCH (20:22)
[2022-12-29] MEDS: FAMOTIDINE 20 MG TAB PO SCH (20:23)
[2022-12-29] MEDS: GABAPENTIN 100 MG CAP PO SCH (20:23)
[2022-12-29] MEDS: TOPIRAMATE 50 MG TAB PO SCH (23:52)
[2022-12-30] MEDS: MoRPHine SULFATE 2 MG/ML CARP IV PRN ×4 (03:01→20:39)
[2022-12-30] MEDS: ACETAMINOPHEN 325 MG TAB PO PRN (03:14)
[2022-12-30] MEDS: LEVOTHYROXINE SODIUM 75 MCG TABLET PO SCH (05:33)
[2022-12-30 06:25] LABS: Basophils # (auto) 0.07 K/uL (0-0.2); Basophils % (auto) 0.6 %; Eosinophils # (auto) 0.62 K/uL (0-0.50); Eosinophils % (auto) 5.4 %; Hematocrit (blood only) 23.7 % (37.0-47.0); Hemoglobin 7.4 g/dl (12.0-16.0); Immature Granulocytes # (auto) 0.05 K/uL (0.01-0.20); Immature Granulocytes % (auto) 0.4 %; Lymphocytes # (auto) 2.74 K/uL (1.2-3.4); Lymphocytes % (auto) 23.8 %; Mean Corpuscular Hemoglobin 29.4 pg (25.0-34.0); Mean Corpuscular Hgb Conc 31.2 g/dL (32.0-36.0); Mean Platelet Volume 9.9 fL (9.4-12.4); Monocytes % (auto) 8.7 %; Neutrophils # (auto) 7.02 K/uL (1.40-6.50); Neutrophils % (auto) 61.1 %; Platelet Count 290 K/uL (130-400); RDW Coefficient of Variation 15.1 % (11.5-14.5); RDW Standard Deviation 51.8 fL (36.4-46.3); Red Blood Count 2.52 M/uL (4.20-5.40)
[2022-12-30 06:48] LABS: BUN Creatinine Ratio 15.3 (10-20); Creatinine Clr Calc Pharmacy 32.9 ml/min; Est GFR (African American) 67.3 ml/min; Potassium 3.8 mmol/L (3.5-5.1)
[2022-12-30 07:16] LABS: RBC Morphology Unremarkable
[2022-12-30] MEDS: CYANOCOBALAMIN (B-12) 500 MCG TABLET PO SCH (08:08)
[2022-12-30] MEDS: CLOPIDOGREL BISULFATE 75 MG TAB PO SCH (08:08)
[2022-12-30] MEDS: PANTOprazole 40 MG TAB PO SCH (08:08)
[2022-12-30] MEDS: MULTIVITAMIN TAB PO SCH (08:08)
[2022-12-30] MEDS: VENLAFAXINE HCL 50 MG TAB PO SCH ×2 (08:08→20:11)
[2022-12-30] MEDS: FAMOTIDINE 20 MG TAB PO SCH ×2 (08:09→20:11)
[2022-12-30] MEDS: FERROUS SULFATE 325 MG TAB PO SCH (08:09)
[2022-12-30] MEDS: SIMETHICONE 80 MG CHEW PO SCH ×4 (08:09→20:11)
[2022-12-30] MEDS: SUCRALFATE 1 GM TAB PO SCH ×2 (08:09→20:11)
[2022-12-30] MEDS: GABAPENTIN 100 MG CAP PO SCH ×2 (08:09→20:12)
[2022-12-30] MEDS: diphenhydrAMINE HCL 25 MG/10 ML UDC PO SCH ×3 (08:10→20:11)
[2022-12-30] MEDS: LORazepam 0.5 MG TAB PO SCH ×2 (08:30→20:11)
[2022-12-30] MEDS ORDERED: amLODIPine BESYLATE 5 MG TAB PO SCH (09:00)
[2022-12-30 10:04] LABS: Hematocrit (blood only) 23.7 % (37.0-47.0); Hemoglobin 7.6 g/dl (12.0-16.0)
[2022-12-30] MEDS: oxyCODONE HCL IR 5 MG TAB (IMMEDIATE RELEASE) PO PRN ×2 (12:13→18:40)
[2022-12-30] MEDS: TOPIRAMATE 50 MG TAB PO SCH ×2 (12:15→23:13)
--- NOTE | 2022-12-30 14:26 | Hospitalist Progress Note ---
Date of Service December 30, 2022 Assessment & Plan (1) PAD (peripheral artery disease): Plan: POD #1 - s/p angioplasty and stenting of entire length of left SFA with 3 stents. POD #1 - s/p angioplasty of left PROGRESS DEVELOPER, ostial SFA with drug-eluting balloon. Started back on plavix 75mg daily by Dr Yee today Plan is ultimately to have dual-antiplatelet therapy with asa 81mg/plavix 75mg Surgery complicated by LUE hematoma and acute blood loss anemia (2) Hematoma of arm: Plan: left upper arm with resulting acute blood loss anemia elevate arm warm packs as needed (3) Acute blood loss anemia: Plan: 2nd to #2 H/H noted although she is tachycardic she was tachycardic even before her procedure yesterday tachycardia is somewhat chronic although the acute anemia will certainly worsen such defer to primary attending re: transfusion but would use Hb threshold of <7 for PRBCS consider IV venofer while here prior to such check Fe studies, B12, folate (4) Dry gangrene: Plan: multiple toes L foot reason for #1 above perfusion to L foot is very good today s/p vascular surgery yesterday by Dr Yee (5) Chronic respiratory failure with hypoxia: Plan: O2 via trach collar, up to 6 liters 2nd to COPD mild wheezing on exam but no distress (6) Tracheostomy in place: Plan: 2nd to laryngeal cancer 2008 s/p laryngectomy follows with Dr Chandra has speaking valve that typically is exchanged in office by Dr Chandra (7) Hyperlipemia: Plan: uncertain why she is not on statin therapy given the extent of her vascular disease she does not have a statin allergy or intolerance based on her record looking back several years she has not been on a statin last documented LDL was 58 in 2019 consider repeating a lipid profile and starting a statin (8) Hypertension: Plan: metoprolol currently on hold lasix currently on hold amlodipine increased to 2.5mg BID to treat small vessel disease and Raynaud's (9) Hypothyroidism: Plan: TSH 09/2022 wnl cont synthroid (10) COPD (chronic obstructive pulmonary disease): Plan: no exacerbation at this time remains on O2 via trach, 6 L continuously uncertain why she is not on controller agents Plan h/o Raynaud's by report uncertain if R 4th finger issues are due to embolic phenomenon from recent vascular surgery or related to Raynaud's echo this admission noted - no source of embolus seen will cont to follow Admission and Anticipated Discharge Date Admission Date: December 29, 2022 Subjective during the visit the pt c/o her left upper arm, and her 4th finger on the right hand tele - sinus tach denies dyspnea eating ok no abd pain c/o feeling cold and asks for additional warm blankets 2 sisters were at bedside during the visit Review of Systems Review of Systems: cv - no chest pain musculo - no c/o L foot pain pulm - cough present Physical Exam Physical Exam: gen - chronically ill appearing, NAD, very thin, kyphotic mouth - MMM neck - tracheostomy present, no JVD heart - tachy, s1 s2 lungs - mild end-exp wheezes b/l, no distress abd - soft NT ND BS+ vascular - right hand 4th finger (distal) with coolness to touch and delayed cap refill but palpable radial pulse; palpable radial pulse on left; b/l foot pulses 2+ skin - hematoma LUE; ischemic-appearing toes/dry gangrene on left foot but no wet gangrene Results & Data Results & Data ([facility]) Vital Signs (Past 12 Hours) Vital Signs Temp Pulse Pulse Pulse Resp BP Pulse Ox 12/30/22 11:43 36.6 C 112 H 21 139/67 99 12/30/22 08:31 99 H 12/30/22 08:24 37.2 C 111 H 22 142/85 H 100 12/30/22 07:24 102 H 22 98 12/30/22 03:29 37.0 C 105 H 18 121/85 100 O2 Del Method O2 Flow Rate FiO2 12/30/22 11:43 Trach Collar 6 12/30/22 08:31 12/30/22 08:24 Trach Collar 6 12/30/22 07:24 Trach Collar 6 28 12/30/22 03:29 Trach Collar 6 28 Laboratory Results Laboratory Results - last 24 hr 12/29/22 12/29/22 12/30/22 16:50 23:17 05:43 WBC 11.50 H RBC 2.52 L Hgb 9.0 L 7.4 L Hct 29.0 L 23.7 L MCV 94.0 MCH 29.4 MCHC 31.2 L RDW Std Deviation 51.8 H RDW Coeff of Eleazar 15.1 H Plt Count 290 MPV 9.9 Immature Gran % (Auto) 0.4 Neut % (Auto) 61.1 Lymph % (Auto) 23.8 Rincon % (Auto) 8.7 Eos % (Auto) 5.4 Baso % (Auto) 0.6 Neut # (Auto) 7.02 H Lymph # (Auto) 2.74 Rincon # (Auto) 1.00 H Eos # (Auto) 0.62 H Baso # (Auto) 0.07 Immature Gran # (Auto) 0.05 RBC Morphology Unremarkable Sodium Potassium Chloride Carbon Dioxide Anion Gap BUN Creatinine Est Cr Clr Drug Dosing Est GFR ( Amer) Est GFR (Non-Af Amer) BUN/Creatinine Ratio Glucose Calcium Iron TIBC Unsaturated IBC Transferrin % Sat Ferritin Vitamin B12 Folate Blood Type B Positive Antibody Screen NEGATIVE Crossmatch See Detail 12/30/22 12/30/22 12/30/22 05:43 05:46 05:46 WBC RBC Hgb Hct MCV MCH MCHC RDW Std Deviation RDW Coeff of Eleazar Plt Count MPV Immature Gran % (Auto) Neut % (Auto) Lymph % (Auto) Rincon % (Auto) Eos % (Auto) Baso % (Auto) Neut # (Auto) Lymph # (Auto) Rincon # (Auto) Eos # (Auto) Baso # (Auto) Immature Gran # (Auto) RBC Morphology Sodium 137 Potassium 3.8 D Chloride 100 Carbon Dioxide 30 Anion Gap 7 BUN 15 Creatinine 0.98 Est Cr Clr Drug Dosing 32.9 Est GFR ( Amer) 67.3 Est GFR (Non-Af Amer) 58.0 BUN/Creatinine Ratio 15.3 Glucose 105 H Calcium 9.0 Iron 41 TIBC 216 L Unsaturated IBC 175 Transferrin % Sat 19 Ferritin 365.6 Vitamin B12 761 Folate 8.56 Blood Type Antibody Screen Crossmatch 12/30/22 09:44 WBC RBC Hgb 7.6 L Hct 23.7 L MCV MCH MCHC RDW Std Deviation RDW Coeff of Eleazar Plt Count MPV Immature Gran % (Auto) Neut % (Auto) Lymph % (Auto) Rincon % (Auto) Eos % (Auto) Baso % (Auto) Neut # (Auto) Lymph # (Auto) Rincon # (Auto) Eos # (Auto) Baso # (Auto) Immature Gran # (Auto) RBC Morphology Sodium Potassium Chloride Carbon Dioxide Anion Gap BUN Creatinine Est Cr Clr Drug Dosing Est GFR ( Amer) Est GFR (Non-Af Amer) BUN/Creatinine Ratio Glucose Calcium Iron TIBC Unsaturated IBC Transferrin % Sat Ferritin Vitamin B12 Folate Blood Type Antibody Screen Crossmatch PG Care Time/CCT Total # of Minutes Spent Total Time Spent with Patient: Total time spent is greater than 50% in coordination of care (as documented) at patient's floor/unit and/or counseling patient: Coding Level of Care Code 87383 SUB INP/OBS CARE 12/06MIN Diagnoses PAD (peripheral artery disease) I73.9 Hematoma of arm S40.029A Acute blood loss anemia D62 Dry gangrene I96 Chronic respiratory failure with hypoxia J96.[address] Z93.0 Hyperlipemia E78.5 Hypertension I10 Hypertension type: essential hypertension Hypothyroidism E03.9 Hypothyroidism type: unspecified COPD (chronic obstructive pulmonary disease) J43.9 COPD type: emphysema Emphysema type: unspecified (8) Hypertension Hypertension type: essential hypertension Qualified Code(s): I10 - Essential (primary) hypertension (9) Hypothyroidism Hypothyroidism type: unspecified Qualified Code(s): E03.9 - Hypothyroidism, unspecified (10) COPD (chronic obstructive pulmonary disease) COPD type: emphysema Emphysema type: unspecified Qualified Code(s): J43.9 - Emphysema, unspecified
--- NOTE | 2022-12-30 15:01 | Vascular Medicine ProgressNote ---
Date of Service December 30, 2022 Assessment & Plan (1) PAD (peripheral artery disease): Plan: Left foot critical limb ischemia -- Post left SECOND CHEF angioplasty with DCB and 3 stents to SFA History of Raynaud's 2. Left upper extremity brachial access site hematoma 3. Acute blood loss anemia 4. History of laryngeal cancer post laryngectomy 2009 with tracheostomy 5. Chronic pain 6. COPD 7. Ischemic digits involving multiple fingers on bilateral handsRaynaud's, question embolic Left upper extremity soft, distal pulses dopplerable and sensation intact. Pain better controlled Hb dropped but stable on repeat check this morning Left foot appears better perfused, wounds stable. No active signs of infection. No obvious cardioembolic sources for fingers on echo Continue neurovascular checks overnight Received clopidogrel today Repeat hemoglobin in a.m. Metoprolol held. Will increase amlodipine from 2.5 daily to twice daily Plan to start DOAC for stents, possible upper extremity emboli when stable at [facility] Plan for discharge back to [facility] tomorrow morning. Follow-up vascular medicine in 1-2 weeks with repeat vascular testing. Appreciate hospital medicine assistance Admission and Anticipated Discharge Date Admission Date: December 29, 2022 Subjective Feeling Ok this morning. Mild left arm pain. No chest pain or shortness of breath. Minimal left foot pain. Telemetry reviewedno events, sinus tachycardia Review of Systems Review of Systems: All systems reviewed & are unremarkable except as noted in HPI & below Physical Exam Physical Exam: General: Thin, frail. resting comfortably Eyes: Sclerae anicteric HENT: O2 mask over tracheostomy Lungs: clear anteriorly Cardiac: Tachycardic, regular, no murmurs Abdomen: Soft Psych: Alert orient x3, normal affect and mood Extremities/Vascular: -- Faint right radial pulse. 2+ brachial pulse.Mild ecchymosis extending around elbow. --Faint/dopplerable left radial pulse. Left upper extremity soft, diffuse ecchymoses extending to shoulder. Nonpalpable brachial Bilateral digits on hands purpleish discoloration involving distal digits with sluggish capillary refill. --Faint DP on right . Sluggish capillary refill --Faint DP on left dopplerable LT foot color improved. Superficial ulcers with scaling over dorsal aspect of toes. Black eschar involving plantar aspects of 1-5 toes at MTP joint. Results & Data ([facility]) Vital Signs (Past 12 Hours) Vital Signs Temp Pulse Pulse Pulse Resp BP Pulse Ox 12/30/22 11:43 97.9 F 112 H 21 139/67 99 12/30/22 08:31 99 H 12/30/22 08:24 99.0 F 111 H 22 142/85 H 100 12/30/22 07:24 102 H 22 98 12/30/22 03:29 98.6 F 105 H 18 121/85 100 O2 Del Method O2 Flow Rate FiO2 12/30/22 11:43 Trach Collar 6 12/30/22 08:31 12/30/22 08:24 Trach Collar 6 12/30/22 07:24 Trach Collar 6 28 12/30/22 03:29 Trach Collar 6 28 PG Care Time/CCT Total # of Minutes Spent Total Time Spent with Patient: Total time spent is greater than 50% in coordination of care (as documented) at patient's floor/unit and/or counseling patient: Coding Level of Care Code 28275 SUB INP/OBS CARE 3/50MIN Diagnoses PAD (peripheral artery disease) I73.9
[2022-12-30] MEDS ORDERED: IRON SUCROSE 200 MG in 0.9 % SODIUM CHLORIDE 100 ML IV ONE (15:30)
[2022-12-30 16:36] LABS: Ferritin 365.6 ng/ml (8-388)
[2022-12-30] MEDS: amLODIPine BESYLATE 5 MG TAB PO SCH (20:11)
[2022-12-30] MEDS ORDERED: LACTATED RINGER'S 500 ML IV ONE (20:29)
[2022-12-30 22:32] LABS: Hematocrit (blood only) 20.7 % (37.0-47.0); Hemoglobin 6.6 g/dl (12.0-16.0)
[2022-12-30] MEDS ORDERED: SODIUM CHLORIDE 0.9% 250 ML IV PRN (22:46)
[2022-12-30] MEDS ORDERED: oxyCODONE HCL IR 5 MG TAB (IMMEDIATE RELEASE) PO ONE (22:49)
--- NOTE | 2022-12-30 23:02 | Communication Note ---
Date of Service: December 30, 2022 7:55 noted tachycardia HR 120's pain in LUE and LLE 9/10 despite morphine and oxycodone. Per nursing LUE hematoma soft extremities warm normal doppler. Ordered H&H, hbg 6.6 down from 7.6. Obtained consent from patient for blood transfusion. Ordered 1U blood.
[2022-12-31] MEDS: MoRPHine SULFATE 2 MG/ML CARP IV PRN ×2 (00:37→11:24)
[2022-12-31] MEDS: oxyCODONE HCL IR 5 MG TAB (IMMEDIATE RELEASE) PO PRN ×2 (03:10→20:43)
[2022-12-31] MEDS: LEVOTHYROXINE SODIUM 75 MCG TABLET PO SCH (06:13)
[2022-12-31 07:57] LABS: BUN Creatinine Ratio 13.6 (10-20); Calcium 8.8 mg/dl (8.5-10.1); Creatinine Clr Calc Pharmacy 39.8 ml/min; Est GFR (African American) 84.7 ml/min; Est GFR (Non-African American) 73.1 ml/min; Potassium 3.6 mmol/L (3.5-5.1)
[2022-12-31 09:02] LABS: Hematocrit (blood only) 27.8 % (37.0-47.0); Hemoglobin 9.4 g/dl (12.0-16.0); Mean Corpuscular Hemoglobin 28.9 pg (25.0-34.0); Mean Corpuscular Hgb Conc 33.8 g/dL (32.0-36.0); Mean Corpuscular Volume 85.5 fL (80.0-100.0); Platelet Count 189 K/uL (130-400); RDW Coefficient of Variation 16.3 % (11.5-14.5); RDW Standard Deviation 50.5 fL (36.4-46.3); Red Blood Count 3.25 M/uL (4.20-5.40); White Blood Count 11.77 K/ul (4.8-10.8)
[2022-12-31] MEDS: SIMETHICONE 80 MG CHEW PO SCH ×4 (09:23→19:45)
[2022-12-31] MEDS: LORazepam 0.5 MG TAB PO SCH ×2 (09:23→19:44)
[2022-12-31] MEDS: amLODIPine BESYLATE 5 MG TAB PO SCH ×2 (09:24→19:46)
[2022-12-31] MEDS: FAMOTIDINE 20 MG TAB PO SCH ×2 (09:24→19:47)
[2022-12-31] MEDS: busPIRone 15 MG TAB PO SCH ×2 (09:24→19:47)
[2022-12-31] MEDS: diphenhydrAMINE HCL 25 MG/10 ML UDC PO SCH ×3 (09:25→19:45)
[2022-12-31] MEDS: GABAPENTIN 100 MG CAP PO SCH ×2 (09:28→19:46)
[2022-12-31] MEDS: SUCRALFATE 1 GM TAB PO SCH ×2 (09:28→19:47)
[2022-12-31] MEDS: VENLAFAXINE HCL 50 MG TAB PO SCH ×2 (09:29→19:46)
[2022-12-31] MEDS: CLOPIDOGREL BISULFATE 75 MG TAB PO SCH (09:29)
[2022-12-31] MEDS: PANTOprazole 40 MG TAB PO SCH (09:29)
[2022-12-31] MEDS: CYANOCOBALAMIN (B-12) 500 MCG TABLET PO SCH (09:30)
[2022-12-31] MEDS: FERROUS SULFATE 325 MG TAB PO SCH (09:31)
[2022-12-31] MEDS: MULTIVITAMIN TAB PO SCH (09:31)
[2022-12-31 09:41] LABS: Basophils # (auto) 0.07 K/uL (0-0.2); Basophils % (auto) 0.6 %; Eosinophils # (auto) 0.77 K/uL (0-0.50); Eosinophils % (auto) 6.5 %; Immature Granulocytes # (auto) 0.06 K/uL (0.01-0.20); Immature Granulocytes % (auto) 0.5 %; Lymphocytes # (auto) 1.94 K/uL (1.2-3.4); Lymphocytes % (auto) 16.5 %; Monocytes # (auto) 1.06 K/uL (0.11-0.59); Neutrophils # (auto) 7.87 K/uL (1.40-6.50); Neutrophils % (auto) 66.9 %; RBC Morphology Unremarkable
--- NOTE | 2022-12-31 09:42 | XRay Report ---
SINGLE VIEW CHEST CLINICAL HISTORY: Fever FINDINGS: 2 AP, portable, upright chest radiographs are compared to study dated 12/11/2022 and correla ramez with chest CT dated 10/18/2020. The patient's head partially obscures the right apex. Surgical cli ps project over the lower neck. The cardiomediastinal silhouette is unremarkable noting atherosclerot ic calcification of the thoracic aorta. Advanced emphysema and chronic interstitial thickening is sim ilar to previous. There is volume loss in the right lung. Foci of parenchymal scarring are seen throu ghout both lungs. No airspace consolidation or large pleural effusion is identified. No pneumothorax is seen. The skeletal structures are osteopenic. The bony thorax is grossly intact. IMPRESSION: Advanced emphysematous change with no acute cardiopulmonary abnormality identified. ACT 112: Negative or not required by law. Electronically signed by: Kam Adames M.D. 12/31/2022 9:41 AM
[2022-12-31 09:55] LABS: Influenza A virus by PCR Negative (Neg); Influenza B virus by PCR Negative (Neg); RSV by PCR Negative (Neg)
[2022-12-31] MEDS: TOPIRAMATE 50 MG TAB PO SCH (10:02)
[2022-12-31 10:17] LABS: SARS CoV2 RNA(COVID-19) Ceph POSITIVE (Negative)
--- NOTE | 2022-12-31 10:59 | Hospitalist Progress Note ---
Date of Service December 31, 2022 Assessment & Plan (1) COVID-19: Plan: Tested negative by way of PCR on 12/27/22. + this am after having new onset fever. However, was having chills yesterday - thus, this is likely day #2 of symptoms. Fortunately chronic O2 requirement is unchanged and cxr this am is free of pneumonia. However, given her chronic pulmonary disease & numerous medical problems she is at high risk of further disease progression. Thus, start 5-day course of IV Remdesivir. Recent ast/alt wnl. Recheck Cr, AST, ALT in am. Start dexamethasone 6mg IV daily - up to 10 days in duration. Airborne isolation. Supportive care. Check CRP in am. Check CPK (due to myalgias) in am. Sister notified for +COVID status. assistant director of SNF where she resides notified of +COVID status. (2) COPD (chronic obstructive pulmonary disease): Plan: likely early exacerbation 2nd to #1 - wheezes, rales - but no pneumonia on CXR this am. start dexamethasone 6mg IV daily; low threshold to increase dose if necessary. remains on O2 via trach, 6 L continuously - no changes in o2 requirement thus far. uncertain why she is not on controller agents chronically. (3) Chronic respiratory failure with hypoxia: Plan: O2 via trach collar, up to 6 liters - stable thus far, but high risk of decompensation due to COVID-19 status chronic resp failure 2nd to COPD see above (4) PAD (peripheral artery disease): Plan: POD #2 - s/p angioplasty and stenting of entire length of left SFA with 3 stents. 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 Started back on plavix 75mg daily by Dr Yee Plan is ultimately to have dual-antiplatelet therapy with asa 81mg/plavix 75mg Surgery complicated by LUE hematoma and acute blood loss anemia will speak with Dr Yee about DVT prevention for COVID-19 in light of recent surgery and hematomas, etc (5) Hematoma of arm: Plan: left upper arm with resulting acute blood loss anemia elevate arm warm packs as needed (6) Acute blood loss anemia: Plan: 2nd to above Hb <7 overnight - s/p 1 unit PRBCs with nice response; HB now >9 s/p IV venofer yesterday Fe studies/b12/folate levels noted (7) Dry gangrene: Plan: multiple toes L foot reason for recent surgery perfusion to L foot is very good today s/p vascular surgery by Dr Yee (8) Tracheostomy in place: Plan: 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 follows with Dr Chandra has speaking valve that typically is exchanged in office by Dr Chandra (9) Hyperlipemia: Plan: uncertain why she is not on statin therapy given the extent of her vascular disease she does not have a statin allergy or intolerance based on her record looking back several years she has not been on a statin last documented LDL was 58 in 2019 consider repeating a lipid profile and starting a statin (10) Hypertension: Plan: metoprolol currently on hold lasix currently on hold amlodipine increased to 2.5mg BID to treat small vessel disease and Raynaud's consider dose of lasix to keep net negative in setting of COVID-19 infection & recent PRBCs transfusion (11) Hypothyroidism: Plan: TSH 09/2022 wnl cont synthroid Plan h/o Raynaud's by report uncertain if finger issues are due to embolic phenomenon from recent vascular surgery or related to Raynaud's echo this admission noted - no source of embolus seen sister extensively updated about pt's status and COVID infection change observation status to full admission I will assume care of patient in light of COVID infection Dr Yee to cont to follow as oracle fusion consultant move to airborne isolation Admission and Anticipated Discharge Date Admission Date: December 31, 2022 Subjective received a correspondence this am from pt's nurse that she was refusing all AM meds on med pass she also had a low-grade fever this am appetite was poor at breakfast overnight needed 1 unit of PRBCs due to the fever a repeat COVID/flu/RSV PCR was obtained and returned POSITIVE for COVID patient moved to airborne isolation retrospectively her c/o being cold yesterday may have been brewing COVID during my visit she was comfortable she said she was scared because of COVID dx - she has had COVID in the past requiring hospitalization in 10/31 (was prolonged stay with failure to thrive, need for PPN, etc) she reports feeling short of breath and continues with copious trach secretions she has little appetite she is tired she has pain in left arm at site of hematoma I asked her why she refused AM labs - she stated she "just didn't want to take them" tele overnight - NSR or sinus tach after getting +PCR for COVID I called & spoke with pt's sister who had visited the patient at bedside yesterday sister fully aware now of +COVID status she will self-monitor Review of Systems 2 Review of Systems: gen - fevers, chills, fatigue, loss of appetite cv - no chest pain pulm - dyspnea, cough, trach secretions GI - mild stomach upset/nausea, no pain musculo - left arm pain; multiple fingers b/l hands with discomfort; does feel achy Physical Exam Physical Exam: gen - chronically ill appearing, NAD, very thin, kyphotic, looks tired & weak mouth - MMM neck - tracheostomy present, no JVD heart - tachy, s1 s2, no murmur lungs - mild end-exp wheezes b/l, mild b/l basilar rales, no distress, coughing at times abd - soft; slightly tender epigastric region; ND BS+ vascular - right hand 4th finger (distal) with coolness to touch and delayed cap refill but palpable radial pulse; left 3rd finger with distal coolness and ecchymoses/duskiness and mild delay in cap refill; palpable radial pulse on left; b/l foot pulses 2+ skin - hematoma LUE unchanged; tender to touch; ischemic-appearing toes/dry gangrene on left foot but no wet gangrene psych - anxious Results & Data Results & Data ([facility]) Vital Signs (Past 12 Hours) Vital Signs Temp Pulse Pulse Pulse Pulse Resp BP 12/31/22 08:21 12/31/22 08:21 108 H 12/31/22 08:15 107 H 18 12/31/22 07:06 37.7 C H 119 H 16 12/31/22 03:05 37.5 C 100 H 18 12/31/22 02:15 36.9 C 96 H 16 108/44 L 12/31/22 01:23 36.8 C 98 H 19 102/52 L 12/31/22 00:23 36.8 C 103 H 18 114/71 12/30/22 23:53 36.9 C 104 H 20 98/59 L 12/30/22 23:38 37.2 C 105 H 20 111/52 L 12/30/22 23:21 37 C 106 H 20 102/61 12/30/22 23:00 105 H 12/30/22 22:59 37.4 C 105 H 18 BP Pulse Ox O2 Del Method O2 Flow Rate FiO2 12/31/22 08:21 Trach Collar 6 12/31/22 08:21 12/31/22 08:15 94 Trach Collar 6 28 12/31/22 07:06 145/78 H 95 Trach Collar 6 12/31/22 03:05 100/72 100 Trach Collar 6 12/31/22 02:15 100 6 12/31/22 01:23 100 6 12/31/22 00:23 99 6 12/30/22 23:53 100 6 12/30/22 23:38 100 6 12/30/22 23:21 100 6 12/30/22 23:00 12/30/22 22:59 105/55 L 99 Trach Collar Laboratory Results Laboratory Results - last 24 hr 12/29/22 12/30/22 12/30/22 16:50 05:46 05:46 WBC RBC Hgb Hct MCV MCH MCHC RDW Std Deviation RDW Coeff of Eleazar Plt Count MPV Immature Gran % (Auto) Neut % (Auto) Lymph % (Auto) [place] % (Auto) Eos % (Auto) Baso % (Auto) Neut # (Auto) Lymph # (Auto) [place] # (Auto) Eos # (Auto) Baso # (Auto) Immature Gran # (Auto) Absolute Nucleated RBC Nucleated RBC % (auto) Neutrophils % (Manual) Band Neutrophils % Lymphocytes % (Manual) Prolymphocyte % Reactive Lymphs % (Man) Monocytes % (Manual) Eosinophils % (Manual) Basophils % (Manual) Metamyelocytes % (Man) Myelocytes % (Man) Promyelocytes % (Man) Blast Cells % (Manual) Plasma Cell % (Manual) Other Cells % Nucleated RBC % Neutrophils # (Manual) Band Neutrophils # Total Absolute Neuts Lymphocytes # (Manual) Prolymphocyte # Reactive Lymphs # Total Abs Lymphocytes Monocytes # (Manual) Eosinophils # (Manual) Basophils # (Manual) Metamyelocytes # (Man) Myelocytes # (Manual) Promyelocytes # (Man) Blast Cells # (Man) Plasma Cell # (Manual) Other Cells # Nucleated RBCs # (Man) Hypersegmented Neuts Hyposegmented Neuts Hypogranular Neuts Large Granular Lymphs # Lrg Granular Lymphs Hairy Cells Smudge Cells Toxic Granulation Toxic Vacuolation Dohle Bodies Kristian Rods Platelet Estimate Hypogranular Platelets Giant Platelets Platelet Satelliting RBC Morphology Polychromasia Hypochromasia Poikilocytosis Basophilic Stippling Anisocytosis Microcytosis Macrocytosis Spherocytes Pappenheimer Bodies Sickle Cells Target Cells Tear Drop Cells Ovalocytes Stomatocytes [place] Bodies Echinocytes Acanthocytes (Spur) Rouleaux RBC Agglutinates Schistocytes Sezary Cell Sodium Potassium Chloride Carbon Dioxide Anion Gap BUN Creatinine Est Cr Clr Drug Dosing Est GFR ( Amer) Est GFR (Non-Af Amer) BUN/Creatinine Ratio Glucose Calcium Iron 41 TIBC 216 L Unsaturated IBC 175 Transferrin % Sat 19 Ferritin 365.6 Vitamin B12 761 Folate 8.56 Procalcitonin SARS-CoV-2 (PCR) Influenza Type A (PCR) Influenza Type B (PCR) RSV (RT-PCR) Blood Parasites ID Blood Type B Positive Antibody Screen NEGATIVE Crossmatch See Detail 12/31/22 06:05 WBC RBC Hgb Hct MCV MCH MCHC RDW Std Deviation RDW Coeff of Eleazar Plt Count MPV Immature Gran % (Auto) Neut % (Auto) Lymph % (Auto) [place] % (Auto) Eos % (Auto) Baso % (Auto) Neut # (Auto) Lymph # (Auto) [place] # (Auto) Eos # (Auto) Baso # (Auto) Immature Gran # (Auto) Absolute Nucleated RBC Nucleated RBC % (auto) Neutrophils % (Manual) Band Neutrophils % Lymphocytes % (Manual) Prolymphocyte % Reactive Lymphs % (Man) Monocytes % (Manual) Eosinophils % (Manual) Basophils % (Manual) Metamyelocytes % (Man) Myelocytes % (Man) Promyelocytes % (Man) Blast Cells % (Manual) Plasma Cell % (Manual) Other Cells % Nucleated RBC % Neutrophils # (Manual) Band Neutrophils # Total Absolute Neuts Lymphocytes # (Manual) Prolymphocyte # Reactive Lymphs # Total Abs Lymphocytes Monocytes # (Manual) Eosinophils # (Manual) Basophils # (Manual) Metamyelocytes # (Man) Myelocytes # (Manual) Promyelocytes # (Man) Blast Cells # (Man) Plasma Cell # (Manual) Other Cells # Nucleated RBCs # (Man) Hypersegmented Neuts Hyposegmented Neuts Hypogranular Neuts Large Granular Lymphs # Lrg Granular Lymphs Hairy Cells Smudge Cells Toxic Granulation Toxic Vacuolation Dohle Bodies Kristian Rods Platelet Estimate Hypogranular Platelets Giant Platelets Platelet Satelliting RBC Morphology Polychromasia Hypochromasia Poikilocytosis Basophilic Stippling Anisocytosis Microcytosis Macrocytosis Spherocytes Pappenheimer Bodies Sickle Cells Target Cells Tear Drop Cells Ovalocytes Stomatocytes [place] Bodies Echinocytes Acanthocytes (Spur) Rouleaux RBC Agglutinates Schistocytes [place] Cell Sodium 136 Potassium 3.6 Chloride 103 Carbon Dioxide 28 Anion Gap 5 BUN 11 Creatinine 0.81 Est Cr Clr Drug Dosing 39.8 Est GFR ( Amer) 84.7 Est GFR (Non-Af Amer) 73.1 BUN/Creatinine Ratio 13.6 Glucose 84 Calcium 8.8 Iron TIBC Unsaturated IBC Transferrin % Sat Ferritin Vitamin B12 Folate Procalcitonin SARS-CoV-2 (PCR) Influenza Type A (PCR) Influenza Type B (PCR) RSV (RT-PCR) Blood Parasites ID Blood Type Antibody Screen Crossmatch 12/31/22 12/31/22 08:41 09:05 WBC 11.77 H RBC 3.25 L Hgb 9.4 L Hct 27.8 L MCV 85.5 D MCH 28.9 MCHC 33.8 RDW Std Deviation 50.5 H RDW Coeff of Eleazar 16.3 H Plt Count 189 MPV 10.0 Immature Gran % (Auto) 0.5 Neut % (Auto) 66.9 Lymph % (Auto) 16.5 [place] % (Auto) 9.0 Eos % (Auto) 6.5 Baso % (Auto) 0.6 Neut # (Auto) 7.87 H Lymph # (Auto) 1.94 [place] # (Auto) 1.06 H Eos # (Auto) 0.77 H Baso # (Auto) 0.07 Immature Gran # (Auto) 0.06 Absolute Nucleated RBC Nucleated RBC % (auto) Neutrophils % (Manual) Band Neutrophils % Lymphocytes % (Manual) Prolymphocyte % Reactive Lymphs % (Man) Monocytes % (Manual) Eosinophils % (Manual) Basophils % (Manual) Metamyelocytes % (Man) Myelocytes % (Man) Promyelocytes % (Man) Blast Cells % (Manual) Plasma Cell % (Manual) Other Cells % Nucleated RBC % Neutrophils # (Manual) Band Neutrophils # Total Absolute Neuts Lymphocytes # (Manual) Prolymphocyte # Reactive Lymphs # Total Abs Lymphocytes Monocytes # (Manual) Eosinophils # (Manual) Basophils # (Manual) Metamyelocytes # (Man) Myelocytes # (Manual) Promyelocytes # (Man) Blast Cells # (Man) Plasma Cell # (Manual) Other Cells # Nucleated RBCs # (Man) Hypersegmented Neuts Hyposegmented Neuts Hypogranular Neuts Large Granular Lymphs # Lrg Granular Lymphs Hairy Cells Smudge Cells Toxic Granulation Toxic Vacuolation Dohle Bodies Kristian Rods Platelet Estimate Hypogranular Platelets Giant Platelets Platelet Satelliting RBC Morphology Unremarkable Polychromasia Hypochromasia Poikilocytosis Basophilic Stippling Anisocytosis Microcytosis Macrocytosis Spherocytes Pappenheimer Bodies Sickle Cells Target Cells Tear Drop Cells Ovalocytes Stomatocytes [place] Bodies Echinocytes Acanthocytes (Spur) Rouleaux RBC Agglutinates Schistocytes Sezary Cell Sodium Potassium Chloride Carbon Dioxide Anion Gap BUN Creatinine Est Cr Clr Drug Dosing Est GFR ( Amer) Est GFR (Non-Af Amer) BUN/Creatinine Ratio Glucose Calcium Iron TIBC Unsaturated IBC Transferrin % Sat Ferritin Vitamin B12 Folate Procalcitonin SARS-CoV-2 (PCR) POSITIVE A* Influenza Type A (PCR) Negative Influenza Type B (PCR) Negative RSV (RT-PCR) Negative Blood Parasites ID Blood Type Antibody Screen Crossmatch Diagnostic Findings Chest X-Ray 12/31/22 08:26 SINGLE VIEW CHEST CLINICAL HISTORY: Fever FINDINGS: 2 AP, portable, upright chest radiographs are compared to study dated 12/11/2022 and correlated with chest CT dated 10/18/2020. The patient's head partially obscures the right apex. Surgical clips project over the lower neck. The cardiomediastinal silhouette is unremarkable noting atherosclerotic calcification of the thoracic aorta. Advanced emphysema and chronic interstitial thickening is similar to previous. There is volume loss in the right lung. Foci of parenchymal scarring are seen throughout both lungs. No airspace consolidation or large pleural effusion is identified. No pneumothorax is seen. The skeletal structures are osteopenic. The bony thorax is grossly intact. IMPRESSION: Advanced emphysematous change with no acute cardiopulmonary abnorm ality identified. ACT 112: Negative or not required by law. Electronically signed by: Kam Adames M.D. 12/31/2022 9:41 AM PG Care Time/CCT Total # of Minutes Spent Total Time Spent with Patient: Total time spent is greater than 50% in coordination of care (as documented) at patient's floor/unit and/or counseling patient: Coding Level of Care Code 54670 SUB INP/OBS CARE 3/50MIN Diagnoses COVID-19 U07.1 COPD (chronic obstructive pulmonary disease) J43.9 COPD type: emphysema Emphysema type: unspecified Chronic respiratory failure with hypoxia J96.11 PAD (peripheral artery disease) I73.9 Hematoma of arm S40.029A Acute blood loss anemia D62 Dry gangrene I96 Tracheostomy [address] Z93.0 Hyperlipemia E78.5 Hypertension I10 Hypertension type: essential hypertension Hypothyroidism E03.9 Hypothyroidism type: unspecified (2) COPD (chronic obstructive pulmonary disease) COPD type: emphysema Emphysema type: unspecified Qualified Code(s): J43.9 - Emphysema, unspecified (10) Hypertension Hypertension type: essential hypertension Qualified Code(s): I10 - Essential (primary) hypertension (11) Hypothyroidism Hypothyroidism type: unspecified Qualified Code(s): E03.9 - Hypothyroidism, unspecified
[2022-12-31] MEDS: dexAMETHasone 6 MG in SYRINGE 0 ML IV SCH (11:24)
[2022-12-31] MEDS ORDERED: REMDESIVIR 200 MG in SODIUM CHLORIDE 0.9% 210 ML IV ONE (12:00)
[2022-12-31 14:58] LABS: Appearance Urine Clear (Clear); Bilirubin Urine Negative (Negative); Blood Urine Negative (Negative); Color Urine Yellow; Glucose Urine UA Negative (Negative); Ketones Urine Negative (Negative); Leukocyte Esterase Urine Negative (Negative); Nitrite Urine Negative (Negative); Protein Urine Negative (Negative); Urobilinogen Urine Negative (Negative); pH Urine 6.5 (4.5-7.5)
--- NOTE | 2022-12-31 19:10 | Vascular Medicine ProgressNote ---
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 Left upper extremity brachial access site hematoma 3. Acute blood loss anemia 4. History of laryngeal cancer post laryngectomy 2009 with tracheostomy 5. Chronic pain 6. COPD 7. Ischemic digits involving multiple fingers on bilateral handsRaynaud's, question embolic Left upper extremity soft, distal pulses dopplerable and sensation intact. Left foot appears better perfused, wounds stable. No active signs of infection. Hb dropped overnight, appropriate Hgb response post transfusion -- Covid19 infection. Started on remdesivir, dexamethasone Continue neurovascular checks Continue clopidogrel Serial H/H. If significant drop again - will consider eval for RP bleed. Continue amlodipine 2.5 BID Eventually plan to DOAC when bleeding issues resolved. Appreciate hospital medicine care. Admission and Anticipated Discharge Date Admission Date: December 31, 2022 Subjective Left arm pain persists this morning. Overnight Hb down to 6.6. Rec'd 1 unit. Hb to 9.4 this morning. Coughing, yellow/light brown mucous from tracheostomy Low grade temp to 99.9 this morning. Viral panel + for Covid19 Review of Systems Review of Systems: All systems reviewed & are unremarkable except as noted in HPI & below Physical Exam Physical Exam: General: Thin, frail. resting comfortably Eyes: Sclerae anicteric HENT: O2 mask over tracheostomy Lungs: Coarse BS with rhonchi, few scattered wheezes Cardiac: Tachycardic, regular, no murmurs Abdomen: Soft Psych: Alert orient x3, normal affect and mood Extremities/Vascular: -- Faint right radial pulse. 2+ brachial pulse.Mild ecchymosis extending around elbow. --Faint and dopplerable left radial pulse. Left upper extremity soft, diffuse ecchymoses extending to shoulder. Nonpalpable brachial Lt hand digits with palor except 4th digit (nl cap refil). Multiple digits on RT hand purplish, most notable 4th digit. No skin breakdown. --Faint DP on right . Sluggish capillary refill --Faint DP on left dopplerable LT foot color improved. Superficial ulcers with scaling over dorsal aspect of toes. Black eschar involving plantar aspects of 1-5 toes at MTP joint. Results & Data ([facility]) Vital Signs (Past 12 Hours) Vital Signs Temp Pulse Pulse Pulse Resp BP Pulse Ox 12/31/22 15:05 107 H 20 100 12/31/22 15:55 97.7 F 110 H 20 99/69 L 100 12/31/22 15:52 99 H 12/31/22 11:41 112 H 22 125/67 100 12/31/22 08:21 12/31/22 08:21 108 H 12/31/22 08:15 107 H 18 94 12/31/22 07:06 99.9 F H 119 H 16 145/78 H 95 O2 Del Method O2 Flow Rate FiO2 12/31/22 15:05 Trach Collar 6 28 12/31/22 15:55 Trach Collar 12/31/22 15:52 12/31/22 11:41 Trach Collar 12/31/22 08:21 Trach Collar 6 12/31/22 08:21 12/31/22 08:15 Trach Collar 6 28 12/31/22 07:06 Trach Collar 6 PG Care Time/CCT Total # of Minutes Spent Total Time Spent with Patient: Total time spent is greater than 50% in coordination of care (as documented) at patient's floor/unit and/or counseling patient: Coding Level of Care Code 13736 SUB INP/OBS CARE 3/50MIN Diagnoses PAD (peripheral artery disease) I73.9
[2023-01-01] MEDS: TOPIRAMATE 50 MG TAB PO SCH ×2 (00:03→11:42)
[2023-01-01] MEDS: LEVOTHYROXINE SODIUM 75 MCG TABLET PO SCH (06:10)
[2023-01-01] MEDS: oxyCODONE HCL IR 5 MG TAB (IMMEDIATE RELEASE) PO PRN ×3 (06:20→20:48)
[2023-01-01 06:41] LABS: Eosinophils # (auto) 0.01 K/uL (0-0.50); Eosinophils % (auto) 0.2 %; Hematocrit (blood only) 25.5 % (37.0-47.0); Hemoglobin 8.2 g/dl (12.0-16.0); Immature Granulocytes # (auto) 0.04 K/uL (0.01-0.20); Immature Granulocytes % (auto) 0.6 %; Lymphocytes # (auto) 1.23 K/uL (1.2-3.4); Lymphocytes % (auto) 18.6 %; Mean Corpuscular Hemoglobin 28.6 pg (25.0-34.0); Mean Corpuscular Hgb Conc 32.2 g/dL (32.0-36.0); Mean Corpuscular Volume 88.9 fL (80.0-100.0); Mean Platelet Volume 9.9 fL (9.4-12.4); Monocytes # (auto) 0.48 K/uL (0.11-0.59); Monocytes % (auto) 7.3 %; Neutrophils # (auto) 4.86 K/uL (1.40-6.50); Neutrophils % (auto) 73.3 %; Platelet Count 204 K/uL (130-400); RDW Coefficient of Variation 16.8 % (11.5-14.5); RDW Standard Deviation 54.5 fL (36.4-46.3); Red Blood Count 2.87 M/uL (4.20-5.40); White Blood Count 6.62 K/ul (4.8-10.8)
[2023-01-01 06:53] LABS: BUN Creatinine Ratio 24.3 (10-20); C Reactive Protein 8.99 mg/dl (0-0.5); Calcium 9.2 mg/dl (8.5-10.1); Creatinine Clr Calc Pharmacy 46.4 ml/min; Est GFR (Non-African American) 87.2 ml/min; Potassium 3.5 mmol/L (3.5-5.1)
[2023-01-01] MEDS: amLODIPine BESYLATE 5 MG TAB PO SCH ×2 (09:02→20:47)
[2023-01-01] MEDS: busPIRone 15 MG TAB PO SCH ×2 (09:03→20:48)
[2023-01-01] MEDS: CLOPIDOGREL BISULFATE 75 MG TAB PO SCH (09:04)
[2023-01-01] MEDS: diphenhydrAMINE HCL 25 MG/10 ML UDC PO SCH ×3 (09:06→20:43)
[2023-01-01] MEDS: FAMOTIDINE 20 MG TAB PO SCH ×2 (09:06→20:50)
[2023-01-01] MEDS: GABAPENTIN 100 MG CAP PO SCH ×2 (09:07→20:45)
[2023-01-01] MEDS: FERROUS SULFATE 325 MG TAB PO SCH (09:07)
[2023-01-01] MEDS: MULTIVITAMIN TAB PO SCH (09:07)
[2023-01-01] MEDS: SIMETHICONE 80 MG CHEW PO SCH ×4 (09:08→20:44)
[2023-01-01] MEDS: PANTOprazole 40 MG TAB PO SCH (09:08)
[2023-01-01] MEDS: SUCRALFATE 1 GM TAB PO SCH ×2 (09:09→21:31)
[2023-01-01] MEDS: VENLAFAXINE HCL 50 MG TAB PO SCH ×2 (09:09→20:44)
[2023-01-01] MEDS: LORazepam 0.5 MG TAB PO SCH ×2 (09:15→20:47)
[2023-01-01] MEDS: MoRPHine SULFATE 2 MG/ML CARP IV PRN ×2 (09:15→16:33)
[2023-01-01] MEDS: CYANOCOBALAMIN (B-12) 500 MCG TABLET PO SCH (11:41)
[2023-01-01] MEDS: REMDESIVIR 100 MG in SODIUM CHLORIDE 0.9% 230 ML IV SCH (11:43)
[2023-01-01] MEDS: dexAMETHasone 6 MG in SYRINGE 0 ML IV SCH (13:16)
[2023-01-01] MEDS: FIRST - Mouthwash BLM 119 ML PO SCH ×2 (16:23→20:43)
[2023-01-01] MEDS: guaiFENesin SUGAR FREE 100 MG/5 ML UDC PO SCH ×2 (16:32→20:43)
[2023-01-01] MEDS: NYSTATIN OINT 15 GM TUBE EXT SCH ×2 (16:34→21:31)
--- NOTE | 2023-01-01 18:13 | Hospitalist Progress Note ---
Date of Service January 01, 2023 Assessment & Plan (1) COVID-19: Plan: Tested negative by way of PCR on 12/27/22. 12/30 - began having chills but no other symptoms. 12/31 - low-grade fever, mild confusion? -- repeat COVID PCR POSITIVE. CXR 12/31 without pneumonia. 12/31 - started on Remdesivir + IV dexamethasone. Thus, day #2 of each. AST/ALT remain stable. CPK wnl despite myalgias. CRP noted today (8.99). O2 requirement remains at her usual baseline amount of 6 liters via NC. However, given her chronic pulmonary disease & numerous medical problems she is at high risk of further disease progression but thus far remaining stable. Cont Airborne isolation. Supportive care. Pt's sister notified of COVID + status (she had visited on Sunday, 12/30 for prolonged period of time). director smb sales of SNF where she resides notified of COVID status. (2) COPD (chronic obstructive pulmonary disease): Plan: mild exacerbation 2nd to #1. day #2 of dexamethasone 6mg IV daily; low threshold to increase dose if necessary. remains on O2 via trach, 6 L continuously - no changes in o2 requirement fortunately. cxr without infiltrates (12/31 AM). uncertain why she is not on controller agents chronically. staff reporting thick secretions - start saline nebs BID. start scheduled duonebs BID - increase if needed. Add guaifenesin 200mg Q6h scheduled. Consider mucomyst if needed. Consider percussion vest therapy if needed. (3) Chronic respiratory failure with hypoxia: Plan: O2 via trach collar, up to 6 liters - stable thus far, but high risk of decompensation due to COVID-19 status chronic resp failure 2nd to COPD see above (4) PAD (peripheral artery disease): Plan: POD #3 - s/p angioplasty and stenting of entire length of left SFA with 3 stents. POD #3 - s/p angioplasty of left JOB BOSS, ostial SFA with drug-eluting balloon. Started back on plavix 75mg daily by Dr Yee Plan is ultimately to have dual-antiplatelet therapy with asa 81mg/plavix 75mg Surgery complicated by LUE hematoma and acute blood loss anemia need to speak with Dr Yee about DVT prevention for COVID-19 in light of recent surgery and hematomas, etc ultimate plan is a DOAC, but would advocate for heparin SC starting tomorrow if H/H remain stable and no expansion of LUE hematoma etc. (5) Hematoma of arm: Plan: left upper arm with resulting acute blood loss anemia elevate arm warm packs as needed serial exams daily H/H (6) Acute blood loss anemia: Plan: 2nd to above s/p 1 unit PRBCs AM of 12/31 s/p IV venofer x 1 this admission Fe studies/b12/folate levels noted Hb had risen to >9, now 8.2 this am no active bleeding noted on exam, however - spurious lab? 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 follows with Dr Chandra has speaking valve that typically is exchanged in office by Dr Chandra (9) Hyperlipemia: Plan: uncertain why she is not on statin therapy given the extent of her vascular disease she does not have a statin allergy or intolerance based on her record looking back several years she has not been on a statin last documented LDL was 58 in 2019 consider repeating a lipid profile and starting a statin (10) Hypertension: Plan: metoprolol currently on hold lasix currently on hold amlodipine increased to 2.5mg BID to treat small vessel disease and Raynaud's resume lasix 20mg qam tomorrow to keep net negative in light of COVID-19 infection (11) Hypothyroidism: Plan: TSH 09/2022 wnl cont synthroid (12) Angular cheilitis: Plan: question of b/l corners of mouth start nystatin ointment TID in thin amounts to both corners magic mouthwash q6h for oral cavity Plan h/o Raynaud's by report uncertain if finger issues are due to embolic phenomenon from recent vascular surgery or related to Raynaud's echo this admission noted - no source of embolus seen sister extensively updated about pt's status and COVID infection 12/31/22 left another message for pt's sister 01/01/23 PT, OT evals to be ordered Admission and Anticipated Discharge Date Admission Date: December 31, 2022 Subjective tele overnight NSR or sinus tach did not eat well at breakfast, but did eat lunch had bowel movement nurses report that her trach secretions are very thick patient is having a hard time expectorating such patient reports ongoing cough but not severe a little more dyspnea than usual left arm discomfort continues b/l hands (multiple fingers) with discomfort she also c/o dryness at the corners of her mouth Review of Systems 2 Review of Systems: gen - tired, weak; no fevers or chills; appetite fair - a little better today cv - no chest pain or tightness pulm - cough, congested, wheezy GI - no abd pain or vomiting musculo - left arm pain, multiple fingers with pain; some myalgias psych - anxious Physical Exam Physical Exam: gen - chronically ill appearing, NAD, very thin, kyphotic, looks slightly better than yesterday; coughing at times mouth - MM dry; tongue without obvious thrush; dryness/irritation corners of mouth likely angular cheilitis neck - tracheostomy present, no JVD heart - tachy, s1 s2, no murmur lungs - poor airation today; scattered wheezes b/l; no rales; no increased work of breathing abd - soft; NT; BS+ vascular - right hand 4th finger (distal) with coolness to touch and delayed cap refill but palpable radial pulse; left 3rd finger with distal coolness and ecchymoses/duskiness and mild delay in cap refill; palpable radial pulse on left; b/l foot pulses 2+ skin - large hematoma and ecchymoses LUE unchanged; tender to touch; ischemic- appearing toes/dry gangrene on left foot (mainly 2-5th toes) but no wet gangrene psych - anxious; a/o x 3 Results & Data Results & Data ([facility]) Vital Signs (Past 12 Hours) Vital Signs Temp Pulse Pulse Resp BP Pulse Ox O2 Del Method 01/01/23 15:53 18 97 Trach Collar 01/01/23 15:00 113 H 01/01/23 10:00 Trach Collar 01/01/23 10:00 92 H 01/01/23 07:48 36.7 C 101 H 17 130/72 96 Trach Collar 01/01/23 07:36 18 98 Trach Collar O2 Flow Rate FiO2 01/01/23 15:53 6 28 01/01/23 15:00 01/01/23 10:00 6 02/20/23 10:00 01/01/23 07:48 6 01/01/23 07:36 6 28 Laboratory Results Laboratory Results - last 24 hr 01/01/23 01/01/23 05:58 05:58 WBC 6.62 RBC 2.87 L Hgb 8.2 L Hct 25.5 L MCV 88.9 MCH 28.6 MCHC 32.2 RDW Std Deviation 54.5 H RDW Coeff of Eleazar 16.8 H Plt Count 204 MPV 9.9 Immature Gran % (Auto) 0.6 Neut % (Auto) 73.3 Lymph % (Auto) 18.6 Stone % (Auto) 7.3 Eos % (Auto) 0.2 Baso % (Auto) 0.0 Neut # (Auto) 4.86 Lymph # (Auto) 1.23 Stone # (Auto) 0.48 Eos # (Auto) 0.01 Baso # (Auto) 0.00 Immature Gran # (Auto) 0.04 Sodium 142 Potassium 3.5 Chloride 109 H Carbon Dioxide 29 Anion Gap 4 BUN 17 Creatinine 0.70 Est Cr Clr Drug Dosing 46.4 Est GFR ( Amer) 101.0 Est GFR (Non-Af Amer) 87.2 BUN/Creatinine Ratio 24.3 H Glucose 108 H Calcium 9.2 AST 13 ALT 8 Total Creatine Kinase 103 C-Reactive Protein 8.99 H PG Care Time/CCT Total # of Minutes Spent Total Time Spent with Patient: Total time spent is greater than 50% in coordination of care (as documented) at patient's floor/unit and/or counseling patient: Coding Level of Care Code 91367 SUB INP/OBS CARE 3/50MIN Diagnoses COVID-19 U07.1 COPD (chronic obstructive pulmonary disease) J43.9 COPD type: emphysema Emphysema type: unspecified Chronic respiratory failure with hypoxia J96.11 PAD (peripheral artery disease) I73.9 Hematoma of arm S40.029A Acute blood loss anemia D62 Dry gangrene I96 Tr[address] Z93.0 Hyperlipemia E78.5 Hypertension I10 Hypertension type: essential hypertension Hypothyroidism E03.9 Hypothyroidism type: unspecified Angular cheilitis K13.0 (2) COPD (chronic obstructive pulmonary disease) COPD type: emphysema Emphysema type: unspecified Qualified Code(s): J43.9 - Emphysema, unspecified (10) Hypertension Hypertension type: essential hypertension Qualified Code(s): I10 - Essential (primary) hypertension (11) Hypothyroidism Hypothyroidism type: unspecified Qualified Code(s): E03.9 - Hypothyroidism, unspecified
[2023-01-01] MEDS: ALBUT/IPRATROP 3MG/0.5MG NEB 3 ML VIAL NEB SCH (19:24)
[2023-01-01] MEDS: SODIUM CHLOR 7% 4 ML NEB NEB SCH (19:24)
--- NOTE | 2023-01-01 20:57 | Vascular Medicine ProgressNote ---
Date of Service January 01, 2023 Assessment & Plan (1) PAD (peripheral artery disease): Plan: Left foot critical limb ischemia -- Post left [employer] angioplasty with DCB and 3 stents to SFA History of Raynaud's 2. Left upper extremity brachial access site hematoma 3. Acute blood loss anemia 4. History of laryngeal cancer post laryngectomy 2009 with tracheostomy 5. Chronic pain 6. COPD 7. Ischemic digits involving multiple fingers on bilateral handsRaynaud's, question embolic 8. Covid19 infection -- now on remdesivir, dexamethasone Vascular issues unchanged today --Continue to monitor H/H Continue clopidogrel Continue amlodipine 2.5 BID Eventually plan to DOAC when bleeding issues resolved. Appreciate hospital medicine care. Admission and Anticipated Discharge Date Admission Date: December 31, 2022 Subjective Seen just after patient ate lunch. Comfortably watching TV. States breathing OK, not as good as normal. Denies chest pain. Continued pain in left upper extremity. Tele reviewed -- sinus rhyth Review of Systems Review of Systems: All systems reviewed & are unremarkable except as noted in HPI & below Physical Exam Physical Exam: General: Thin, frail. resting comfortably Eyes: Sclerae anicteric HENT: O2 mask over tracheostomy Lungs: Coarse BS anteriorly, improved from yesterday Cardiac: Tachycardic, regular, no murmurs Abdomen: Soft Psych: Alert orient x3, normal affect and mood Extremities/Vascular: -- Faint right radial pulse. 2+ brachial pulse.Mild ecchymosis extending around elbow. --Faint and dopplerable left radial pulse. Left upper extremity soft, diffuse ecchymoses extending to LT upper chest. Nonpalpable brachial Lt hand digits with palor except 4th digit (nl cap refil). Multiple digits on RT hand purplish, most notable 4th digit. No skin breakdown. --Faint DP on right . Sluggish capillary refill --Faint DP on left dopplerable Superficial ulcers with scaling over dorsal aspect of toes. Black eschar involving plantar aspects of 1-5 toes at MTP joint. Results & Data ([facility]) Vital Signs (Past 12 Hours) Vital Signs Temp Pulse Pulse Resp BP Pulse Ox O2 Del Method 01/01/23 19:49 98.6 F 114 H 21 127/71 100 Trach Collar 01/01/23 19:24 111 H 21 97 Trach Collar 01/01/23 15:53 18 97 Trach Collar 01/01/23 15:00 113 H 01/01/23 10:00 Trach Collar 01/01/23 10:00 92 H O2 Flow Rate FiO2 01/01/23 19:49 6 01/01/23 19:24 6 28 01/01/23 15:53 6 28 01/01/23 15:00 01/01/23 10:00 6 01/01/23 10:00 PG Care Time/CCT Total # of Minutes Spent Total Time Spent with Patient: Total time spent is greater than 50% in coordination of care (as documented) at patient's floor/unit and/or counseling patient: Coding Level of Care Code 68361 SUB INP/OBS CARE 2/35MIN Diagnoses PAD (peripheral artery disease) I73.9
[2023-01-02] MEDS: MoRPHine SULFATE 2 MG/ML CARP IV PRN (01:04)
[2023-01-02] MEDS: TOPIRAMATE 50 MG TAB PO SCH ×2 (01:08→08:43)
[2023-01-02] MEDS: oxyCODONE HCL IR 5 MG TAB (IMMEDIATE RELEASE) PO PRN ×3 (03:06→22:46)
[2023-01-02] MEDS: LEVOTHYROXINE SODIUM 75 MCG TABLET PO SCH (06:23)
[2023-01-02 07:01] LABS: Hematocrit (blood only) 27.9 % (37.0-47.0); Mean Corpuscular Hemoglobin 29.1 pg (25.0-34.0); Mean Corpuscular Hgb Conc 32.3 g/dL (32.0-36.0); Mean Corpuscular Volume 90.3 fL (80.0-100.0); Mean Platelet Volume 9.8 fL (9.4-12.4); Platelet Count 240 K/uL (130-400); RDW Coefficient of Variation 16.6 % (11.5-14.5); RDW Standard Deviation 53.4 fL (36.4-46.3); Red Blood Count 3.09 M/uL (4.20-5.40); White Blood Count 8.78 K/ul (4.8-10.8)
[2023-01-02] MEDS: ALBUT/IPRATROP 3MG/0.5MG NEB 3 ML VIAL NEB SCH ×2 (07:04→19:15)
[2023-01-02] MEDS: SODIUM CHLOR 7% 4 ML NEB NEB SCH ×2 (07:04→19:15)
[2023-01-02 07:17] LABS: BUN Creatinine Ratio 26.4 (10-20); Calcium 9.4 mg/dl (8.5-10.1); Creatinine Clr Calc Pharmacy 45.3 ml/min; Est GFR (African American) 97.7 ml/min; Est GFR (Non-African American) 84.3 ml/min; Potassium 3.7 mmol/L (3.5-5.1)
[2023-01-02] MEDS: FIRST - Mouthwash BLM 119 ML PO SCH ×4 (08:41→19:56)
[2023-01-02] MEDS: GABAPENTIN 100 MG CAP PO SCH ×2 (08:42→19:57)
[2023-01-02] MEDS: dexAMETHasone 6 MG in SYRINGE 0 ML IV SCH (08:42)
[2023-01-02] MEDS: amLODIPine BESYLATE 5 MG TAB PO SCH ×2 (08:42→19:56)
[2023-01-02] MEDS: VENLAFAXINE HCL 50 MG TAB PO SCH ×2 (08:42→19:57)
[2023-01-02] MEDS: FAMOTIDINE 20 MG TAB PO SCH ×2 (08:42→19:57)
[2023-01-02] MEDS: PANTOprazole 40 MG TAB PO SCH (08:43)
[2023-01-02] MEDS: FERROUS SULFATE 325 MG TAB PO SCH (08:43)
[2023-01-02] MEDS: CLOPIDOGREL BISULFATE 75 MG TAB PO SCH (08:43)
[2023-01-02] MEDS: SUCRALFATE 1 GM TAB PO SCH ×2 (08:43→19:57)
[2023-01-02] MEDS: CYANOCOBALAMIN (B-12) 500 MCG TABLET PO SCH (08:43)
[2023-01-02] MEDS: SIMETHICONE 80 MG CHEW PO SCH ×4 (08:43→19:56)
[2023-01-02] MEDS: MULTIVITAMIN TAB PO SCH (08:43)
[2023-01-02] MEDS: NYSTATIN OINT 15 GM TUBE EXT SCH ×3 (08:44→19:58)
[2023-01-02] MEDS: POTASSIUM CHLORIDE CRTAB 20 MEQ TABCR PO SCH (08:44)
[2023-01-02] MEDS: busPIRone 15 MG TAB PO SCH ×2 (08:44→19:56)
[2023-01-02] MEDS: guaiFENesin SUGAR FREE 100 MG/5 ML UDC PO SCH ×4 (08:44→19:58)
[2023-01-02] MEDS: LORazepam 0.5 MG TAB PO SCH ×2 (08:44→19:56)
[2023-01-02] MEDS: diphenhydrAMINE HCL 25 MG/10 ML UDC PO SCH ×3 (08:44→19:56)
[2023-01-02] MEDS ORDERED: FUROSEMIDE 20 MG TAB PO SCH (09:00)
--- NOTE | 2023-01-02 12:19 | Hospitalist Progress Note ---
Date of Service January 02, 2023 Assessment & Plan (1) COVID-19: Plan: Tested negative by way of PCR on 12/27/22. 12/30 - began having chills but no other symptoms. 12/31 - low-grade fever, mild confusion? -- repeat COVID PCR POSITIVE. CXR 12/31 without pneumonia. 12/31 - started on Remdesivir + IV dexamethasone AST/ALT remain stable. CPK wnl despite myalgias. CRP 8.99 O2 requirement remains at her usual baseline amount of 6 liters via NC. However, given her chronic pulmonary disease & numerous medical problems she is at high risk of further disease progression but thus far remaining stable. Cont Airborne isolation. Supportive care. Pt's sister notified of COVID + status (she had visited on Sunday, 12/30 for prolonged period of time). administrative medical director of SNF where she resides notified of COVID status. (2) COPD (chronic obstructive pulmonary disease): Plan: mild exacerbation 2nd to COVID continue dexamethasone 6mg IV daily; low threshold to increase dose if necessary. remains on O2 via trach, 6 L continuously - no changes in o2 requirement fortunately. cxr without infiltrates (12/31 AM). uncertain why she is not on controller agents chronically. staff reporting thick secretions - started saline nebs BID and scheduled duonebs BID-improved continue guaifenesin 200mg Q6h scheduled. Consider mucomyst if needed. Consider percussion vest therapy if needed. (3) Chronic respiratory failure with hypoxia: Plan: O2 via trach collar, up to 6 liters - stable thus far, but high risk of decompensation due to COVID-19 status chronic resp failure 2nd to COPD see above (4) PAD (peripheral artery disease): Plan: s/p - s/p angioplasty and stenting of entire length of left SFA with 3 stents and angioplasty of left [employer], ostial SFA with drug-eluting balloon. Started back on plavix 75mg daily by Dr Yee Plan is ultimately to have DOAC added on-will see about adding this today Surgery complicated by LUE hematoma and acute blood loss anemia (5) Hematoma of arm: Plan: left upper arm with resulting acute blood loss anemia elevate arm warm packs as needed serial exams daily H/H improving (6) Acute blood loss anemia: Plan: 2nd to above s/p 1 unit PRBCs AM of 12/31 s/p IV venofer x 1 this admission Fe studies/b12/folate levels noted Hb has risen to 9 from 6.2 -follow CBC in AM (7) Dry gangrene: Plan: multiple toes L foot reason for recent surgery perfusion to L foot remains intact s/p vascular surgery by Dr Yee (8) Tracheostomy in place: Plan: 2nd to laryngeal cancer 2008 s/p laryngectomy follows with Dr Chandra has speaking valve that typically is exchanged in office by Dr Chandra (9) Hyperlipemia: Plan: uncertain why she is not on statin therapy given the extent of her vascular disease she does not have a statin allergy or intolerance based on her record looking back several years she has not been on a statin last documented LDL was 58 in 2019 consider repeating a lipid profile and starting a statin (10) Hypertension: Plan: metoprolol currently on hold lasix currently on hold amlodipine increased to 2.5mg BID to treat small vessel disease and Raynaud's resumed lasix 20mg qam to keep net negative in light of COVID-19 infection (11) Hypothyroidism: Plan: TSH 09/2022 wnl cont synthroid (12) Angular cheilitis: Plan: question of b/l corners of mouth started nystatin ointment TID in thin amounts to both corners magic mouthwash q6h for oral cavity Plan h/o Raynaud's by report uncertain if finger issues are due to embolic phenomenon from recent vascular surgery or related to Raynaud's echo this admission noted - no source of embolus seen Dispo-PT, OT evals ordered . Plan is to return to her [facility] hopefully tomorrow if they can take her back with active COVID Admission and Anticipated Discharge Date Admission Date: December 31, 2022 Subjective Pt reports feeling not great today. Does not want to leave the hospital just yet today. RN reports pt is irritable and knocked all the pills out of his hand today. Tele with NSR, rates 90s Physical Exam Physical Exam: gen - chronically ill appearing, NAD, very thin, kyphotic, underweight mouth - MM dry; dryness/irritation corners of mouth likely angular cheilitis neck - tracheostomy present, no JVD heart - tachy, s1 s2, no murmur lungs - poor aeration; CTAB; no increased work of breathing abd - soft; NT; BS+ vascular - right hand 4th finger (distal) with coolness to touch and delayed cap refill but palpable radial pulse; left 3rd finger with distal coolness and ecchymoses/duskiness and mild delay in cap refill; palpable radial pulse on left; b/l foot pulses 1+ skin - large hematoma and ecchymoses LUE unchanged; tender to touch; ischemic- appearing toes/dry gangrene on left foot (mainly 2-5th toes) but no wet gangrene Results & Data Results & Data ([facility]) Vital Signs (Past 12 Hours) Vital Signs Temp Pulse Pulse Resp BP Pulse Ox O2 Del Method 01/02/23 08:00 Trach Collar 01/02/23 07:00 82 01/02/23 07:05 89 21 99 Trach Collar 01/02/23 03:13 36.9 C 89 18 127/78 100 Trach Collar O2 Flow Rate FiO2 01/02/23 08:00 01/02/23 07:00 01/02/23 07:05 28 01/02/23 03:13 6 Laboratory Results CBC and BMP reviewed PG Care Time/CCT Total # of Minutes Spent Total Time Spent with Patient: Total time spent is greater than 50% in coordination of care (as documented) at patient's floor/unit and/or counseling patient: Coding Level of Care Code 06071 SUB INP/OBS CARE 235MIN Diagnoses COVID-19 U07.1 COPD (chronic obstructive pulmonary disease) J43.9 COPD type: emphysema Emphysema type: unspecified Chronic respiratory failure with hypoxia J96.11 PAD (peripheral artery disease) I73.9 Hematoma of arm S40.029A Acute blood loss anemia D62 Dry gangrene I[address] Z93.0 Hyperlipemia E78.5 Hypertension I10 Hypertension type: essential hypertension Hypothyroidism E03.9 Hypothyroidism type: unspecified Angular cheilitis K13.0 (2) COPD (chronic obstructive pulmonary disease) COPD type: emphysema Emphysema type: unspecified Qualified Code(s): J43.9 - Emphysema, unspecified (10) Hypertension Hypertension type: essential hypertension Qualified Code(s): I10 - Essential (primary) hypertension (11) Hypothyroidism Hypothyroidism type: unspecified Qualified Code(s): E03.9 - Hypothyroidism, unspecified
[2023-01-02] MEDS: REMDESIVIR 100 MG in SODIUM CHLORIDE 0.9% 230 ML IV SCH (13:11)
--- NOTE | 2023-01-02 17:20 | Vascular Medicine ProgressNote ---
Date of Service January 02, 2023 Assessment & Plan (1) PAD (peripheral artery disease): Plan: Left foot critical limb ischemia -- Post left [employer] angioplasty with DCB and 3 stents to SFA History of Raynaud's 2. Left upper extremity brachial access site hematoma 3. Acute blood loss anemia 4. History of laryngeal cancer post laryngectomy 2009 with tracheostomy 5. Chronic pain 6. COPD 7. Ischemic digits involving multiple fingers on bilateral handsRaynaud's, question embolic 8. Covid19 infection -- now on remdesivir, dexamethasone Upper extremity improved hematoma improving slowly. Hemoglobin stable today Left foot perfusion appears improved from admission today Continue clopidogrel. Start PAD dose Xarelto 2.5 mg twice daily Continue amlodipine 2.5 BID Agree with starting statin From a vascular standpoint okay with transfer back to tomorrow if possible with current [facility] medicine care. Admission and Anticipated Discharge Date Admission Date: December 31, 2022 Subjective Seen this afternoon after lunch. Reports feeling tired. Breathing still not at baseline no chest pain. Arm feeling okay. Leg feeling okay. Still limited appetite. Telemetry reviewedsinus, no events Review of Systems Review of Systems: All systems reviewed & are unremarkable except as noted in HPI & below Physical Exam Physical Exam: General: Thin, frail. resting comfortably Eyes: Sclerae anicteric HENT: O2 mask over tracheostomy Lungs: Coarse BS anteriorly Cardiac: Regular, no murmurs Abdomen: Soft Psych: Alert orient x3, normal affect and mood Extremities/Vascular: -- Faint right radial pulse. 2+ brachial pulse.Mild ecchymosis extending around elbow. --Faint and dopplerable left radial pulse. Palpable left ulnar pulse left upper extremity soft, diffuse ecchymoses extending to LT upper chest. Nonpalpable brachial Lt hand digits normal color except third digit with purpleish distal discoloration. Multiple digits on RT hand purplish, most notable 4th digit. No skin breakdown. --Faint DP on right . Sluggish capillary refill --Faint DP on left dopplerable Superficial ulcers with scaling over dorsal aspect of toes. Black eschar involving plantar aspects of 1-5 toes at MTP joint. Results & Data ([facility]) Vital Signs (Past 12 Hours) Vital Signs Temp Pulse Pulse Resp BP Pulse Ox O2 Del Method 01/02/23 15:40 96 H 14 100 Trach Collar 01/02/23 12:00 98.1 F 62 14 82/48 L 97 Trach Collar 01/02/23 08:00 Trach Collar 01/02/23 07:00 82 01/02/23 07:05 89 21 99 Trach Collar FiO2 01/02/23 15:40 28 01/02/23 12:00 01/02/23 08:00 01/02/23 07:00 01/02/23 07:05 28 PG Care Time/CCT Total # of Minutes Spent Total Time Spent with Patient: Total time spent is greater than 50% in coordination of care (as documented) at patient's floor/unit and/or counseling patient: Coding Level of Care Code 42473 SUB INP/OBS CARE 2/35MIN Diagnoses PAD (peripheral artery disease) I73.9
[2023-01-02] MEDS: RIVAROXABAN 2.5 MG TAB PO SCH (19:57)
[2023-01-03] MEDS: LEVOTHYROXINE SODIUM 75 MCG TABLET PO SCH (05:31)
[2023-01-03] MEDS: ALBUT/IPRATROP 3MG/0.5MG NEB 3 ML VIAL NEB SCH (07:14)
[2023-01-03] MEDS: SODIUM CHLOR 7% 4 ML NEB NEB SCH (07:14)
[2023-01-03 07:33] LABS: Basophils # (auto) 0.03 K/uL (0-0.2); Basophils % (auto) 0.2 %; Eosinophils # (auto) 0.47 K/uL (0-0.50); Eosinophils % (auto) 3.5 %; Hematocrit (blood only) 31.8 % (37.0-47.0); Hemoglobin 10.3 g/dl (12.0-16.0); Immature Granulocytes # (auto) 0.05 K/uL (0.01-0.20); Immature Granulocytes % (auto) 0.4 %; Lymphocytes # (auto) 1.95 K/uL (1.2-3.4); Lymphocytes % (auto) 14.6 %; Mean Corpuscular Hemoglobin 29.7 pg (25.0-34.0); Mean Corpuscular Hgb Conc 32.4 g/dL (32.0-36.0); Mean Corpuscular Volume 91.6 fL (80.0-100.0); Mean Platelet Volume 9.5 fL (9.4-12.4); Monocytes # (auto) 0.92 K/uL (0.11-0.59); Monocytes % (auto) 6.9 %; Neutrophils # (auto) 9.95 K/uL (1.40-6.50); Neutrophils % (auto) 74.4 %; Platelet Count 244 K/uL (130-400); RDW Coefficient of Variation 17.7 % (11.5-14.5); RDW Standard Deviation 53.6 fL (36.4-46.3); Red Blood Count 3.47 M/uL (4.20-5.40); White Blood Count 13.37 K/ul (4.8-10.8)
[2023-01-03 07:41] LABS: BUN Creatinine Ratio 16.7 (10-20); Calcium 9.3 mg/dl (8.5-10.1); Est GFR (African American) 74.6 ml/min; Est GFR (Non-African American) 64.3 ml/min; Potassium 3.5 mmol/L (3.5-5.1)
[2023-01-03] MEDS ORDERED: SODIUM CHLORIDE 0.9% 500 ML IV SCH (08:15)
[2023-01-03] MEDS: FIRST - Mouthwash BLM 119 ML PO SCH ×2 (08:28→12:09)
[2023-01-03] MEDS: amLODIPine BESYLATE 5 MG TAB PO SCH (08:28)
[2023-01-03] MEDS: busPIRone 15 MG TAB PO SCH (08:28)
[2023-01-03] MEDS: GABAPENTIN 100 MG CAP PO SCH (08:29)
[2023-01-03] MEDS: FAMOTIDINE 20 MG TAB PO SCH (08:29)
[2023-01-03] MEDS: CYANOCOBALAMIN (B-12) 500 MCG TABLET PO SCH (08:29)
[2023-01-03] MEDS: CLOPIDOGREL BISULFATE 75 MG TAB PO SCH (08:29)
[2023-01-03] MEDS: FERROUS SULFATE 325 MG TAB PO SCH (08:29)
[2023-01-03] MEDS: diphenhydrAMINE HCL 25 MG/10 ML UDC PO SCH ×2 (08:29→13:16)
[2023-01-03] MEDS: guaiFENesin SUGAR FREE 100 MG/5 ML UDC PO SCH ×2 (08:29→13:16)
[2023-01-03] MEDS: MULTIVITAMIN TAB PO SCH (08:29)
[2023-01-03] MEDS: LORazepam 0.5 MG TAB PO SCH (08:29)
[2023-01-03] MEDS: POTASSIUM CHLORIDE CRTAB 20 MEQ TABCR PO SCH (08:30)
[2023-01-03] MEDS: SUCRALFATE 1 GM TAB PO SCH (08:30)
[2023-01-03] MEDS: RIVAROXABAN 2.5 MG TAB PO SCH (08:30)
[2023-01-03] MEDS: PANTOprazole 40 MG TAB PO SCH (08:30)
[2023-01-03] MEDS: VENLAFAXINE HCL 50 MG TAB PO SCH (08:30)
[2023-01-03] MEDS: NYSTATIN OINT 15 GM TUBE EXT SCH ×2 (08:30→13:17)
[2023-01-03] MEDS: SIMETHICONE 80 MG CHEW PO SCH ×2 (08:30→13:16)
[2023-01-03] MEDS ORDERED: METOPROLOL TARTRATE 25 MG TAB PO ONE (11:39)
--- NOTE | 2023-01-03 11:41 | Discharge Summary ---
Date of Service January 03, 2023 Admission HPI Per Admitting Provider Ms. Maria is a 72-year-old woman with a history of remote laryngeal cancer post laryngectomy with tracheostomy, COPD, Raynaud's, lower extremity PAD and critical limb ischemia here for left lower extremity endovascular intervention. Patient previously underwent left [employer] angioplasty on 12/12/2022. Noted at that time to have severe residual SFA disease which was later confirmed on CTA. Post angioplasty procedure course complicated by large thigh hematoma, acute blood loss anemia and postoperative shock thought in part secondary to sedation. Since procedure reports improved but still present left lower extremity rest pain. Still with gangrene involving second through fifth toes. Principal Diagnosis PAD, s/p Left lower extremity angioplasty and SFA stenting Left arm hematoma, acute blood loss anemia COVID-19 Discharge Exam gen - chronically ill appearing, NAD, very thin, kyphotic, underweight mouth - MM dry; dryness/irritation corners of mouth likely angular cheilitis neck - tracheostomy present, no JVD heart - tachy, s1 s2, no murmur lungs - poor aeration; CTAB; no increased work of breathing abd - soft; NT; BS+ vascular - right hand 4th finger (distal) with coolness to touch and delayed cap refill but palpable radial pulse; left 3rd finger with distal coolness and ecchymoses/duskiness and mild delay in cap refill; palpable radial pulse on left; b/l foot pulses 1+ skin - large hematoma and ecchymoses LUE unchanged; tender to touch; ischemic- appearing toes/dry gangrene on left foot (mainly 2-5th toes) but no wet gangrene Discharge Data Allergies Allergy/AdvReac Type Severity Reaction Status Date / Time alendronate sodium Allergy Unknown ON [facility] Verified 12/26/22 14:38 CREST MED LIST penicillin V Allergy Unknown ON CENTRE Verified 12/26/22 14:38 CREST MED LIST sulfadiazine Allergy Unknown ON C[facility]RE Verified 12/26/22 14:38 CREST MED LIST Consultations 12/29/22 15:40 Consult Hospitalist Routine Procedures Performed Operation Date: 12/29/22 08:00 Actual Procedures p Fem Pop Stent Balloon - Craig Yee MD s Ultrasound Vascular Access - Craig Yee MD p Angio Extremity Unilateral - Craig Yee MD Ordered Studies 12/29/22 06:30 CL Cath Imgs for PACS use only Routine Hospital Course (1) COVID-19: Tested negative by way of PCR on 12/27/22. 12/30 - began having chills but no other symptoms. 12/31 - low-grade fever, mild confusion? -- repeat COVID PCR POSITIVE. CXR 12/31 without pneumonia. 12/31 - started on Remdesivir + IV dexamethasone AST/ALT remain stable. CPK wnl despite myalgias. CRP 8.99 O2 requirement remains at her usual baseline amount of 6 liters via NC. However, given her chronic pulmonary disease & numerous medical problems she is at high risk of further disease progression but thus far remaining stable. Had a low grade temp here and there but overall stable (2) COPD (chronic obstructive pulmonary disease): mild exacerbation 2nd to COVID started on dexamethasone 6mg IV daily and convert to po dex to finish out 10 day course after discharge remains on O2 via trach, 6 L continuously - no changes in o2 requirement fortunately. cxr without infiltrates (12/31 AM). uncertain why she is not on controller agents chronically. staff reporting thick secretions - started saline nebs BID and scheduled duonebs BID-improved continue guaifenesin 200mg Q6h scheduled. (3) Chronic respiratory failure with hypoxia: O2 via trach collar, up to 6 liters - stable thus far, but high risk of decompensation due to COVID-19 status chronic resp failure 2nd to COPD see above (4) PAD (peripheral artery disease): s/p - s/p angioplasty and stenting of entire length of left SFA with 3 stents and angioplasty of left [employer] MER[employer], ostial SFA with drug-eluting balloon. Started back on plavix 75mg daily by Dr Yee Started Xarelto 2.5mg po bid as per Cardiology recommendations Surgery complicated by LUE hematoma and acute blood loss anemia f/u as outpt with Dr. Yee (5) Hematoma of arm: left upper arm with resulting acute blood loss anemia elevate arm warm packs as needed serial exams daily H/H improving (6) Acute blood loss anemia: 2nd to above s/p 1 unit PRBCs AM of 12/31 s/p IV venofer x 1 this admission Fe studies/b12/folate levels noted Hb has risen to 10 from 6.2 -follow CBC at skilled nursing in 1 week (7) Dry gangrene: multiple toes L foot reason for recent surgery perfusion to L foot remains intact s/p vascular surgery by Dr Yee (8) Tracheostomy in place: 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 follows with Dr Chandra has speaking valve that typically is exchanged in office by Dr Chandra (9) Hyperlipemia: should be on statin therapy given the extent of her vascular disease -added romero rvastatin 40mg daily she does not have a statin allergy or intolerance based on her record (10) Hypertension: metoprolol was on hold due ot lower BPs with blood loss developed sinus tach-rebound effect--> restart metoprolol at lower dose of 25mg bid due to ongoing soft BPs at times continue low dose lasix 20mg daily, lowered KCl to once dialy from tid amlodipine increased to 2.5mg BID to treat small vessel disease and Raynaud's , but BPs too soft and needed metoprolol added back on--> decrease amlodipine back to once daily resumed lasix 20mg qam to keep net negative in light of COVID-19 infection (11) Hypothyroidism: TSH 09/2022 wnl cont synthroid (12) Angular cheilitis: question of b/l corners of mouth started nystatin ointment TID in thin amounts to both corners Plan h/o Raynaud's by report uncertain if finger issues are due to embolic phenomenon from recent vascular surgery or related to Raynaud's echo this admission noted - no source of embolus seen Dispo-PT, OT evals ordered. Returning to [place] today Total Time Total Time Spent Total Time Spent (In Minutes): 40 min Discussed care with Cardiology Discharge Plan Discharge Items Patient Disposition: Transfer Senior Living Fac Reason For Visit: PERIPHERAL ATERIAL DISEASE,COVID 19 INFECTION Discharge Diagnosis: PAD,s/p angioplasty and stent placement in left lower extremity, COVID-19 Condition on Discharge: Fair Activity: Resume your previous activity Non-emergency contact: Primary Care Provider Call non-emergency contact if: you have any medication questions and your symptoms worsen Follow-up/Referrals: [facility] [Primary Care Provider] - Diet: Heart Healthy Addtl Attending Provider Instructions: Please finish out 6 more days of dexamethasone for your COVID. You were started on a low dose of Xarelto twice a day for your arterial disease to ensure the stents do not clot off. You will also stay on Plavix but will STOP the aspirin. Your metoprolol dose was lowered to 25mg twice a day due to lower blood pressures. Your potassium dose was lowered to once daily rather than three times a day. Follow up with Dr. Yee as directed. Pending Studies at Discharge: No Stand-Alone Forms: My [facility] Skilled Items Patient informed of condition?: Yes DNR: No Discharge Level of Care: Skilled Communicable Disease: Yes (COVID-19) Discharge Prognosis: Improving Lines: None Urinary Catheter: No Medications and DC Order Prescriptions: New Xarelto 2.5 mg Tablet 2.5 mg PO BID Qty: 60 0RF metoprolol tartrate 25 mg tablet 25 mg PO BID Qty: 60 0RF sodium chloride 7 % Solution For Nebulization 4 ml NEB BIDR Qty: 120 0RF nystatin 100,000 unit/gram Ointment 1 applic EXT TID 7 Days Qty: 15 0RF Rx Instructions: apply to corners of mouth dexamethasone 6 mg tablet 6 mg PO DAILY Qty: 6 0RF atorvastatin 40 mg tablet 40 mg PO DAILY Qty: 30 0RF Continued gabapentin 100 mg capsule 200 mg PO BID Rx Instructions: Neuropathic pain, headache buspirone 15 mg tablet 15 mg PO BID ipratropium-albuterol 0.5 mg-3 mg(2.5 mg base)/3 mL solution for nebulization 3 ml inhalation Q4H PRN (Reason: Shortness Of Breath) guaifenesin 100 mg/5 mL liquid 200 mg PO Q6H PRN (Reason: Cough) topiramate 50 mg tablet 50 mg PO BID 30 Days Qty: 60 5RF Rx Instructions: TAKES AT 0001 AND 1100. simethicone [Gas Relief 80 (simethicone)] 80 mg Tablet,Chewable 80 mg PO QID furosemide 20 mg Tablet 20 mg PO QAM multivitamin Tablet 1 tab PO QAM famotidine 20 mg Tablet 20 mg PO BID pantoprazole [Protonix] 40 mg Tablet,Delayed Release (Dr/Ec) 40 mg PO QAM ferrous sulfate 325 mg (65 mg iron) Tablet 325 mg PO QAM cyanocobalamin (vitamin B-12) 1,000 mcg capsule 1,000 mcg PO QAM Reyvow 100 mg tablet 100 mg PO Q24H PRN (Reason: migraines) Rx Instructions: Do not exceed 3 administrations per week levothyroxine 75 mcg Tablet 75 mcg PO QAM venlafaxine 75 mg tablet 75 mg PO BID lorazepam 0.5 mg tablet 0.5 mg PO BID amlodipine 2.5 mg Tablet 2.5 mg PO QAM diphenhydramine HCl 12.5 mg/5 mL Elixir 50 mg PO TID clopidogrel 75 mg Tablet 75 mg PO QAM 30 Days Qty: 30 0RF docosanol [Abreva] 10 % Cream 1 applic TOPICAL 5XD PRN (Reason: Cold Sores) ondansetron HCl [Zofran] 4 mg Tablet 4 mg PO Q8H PRN (Reason: nausea/vomiting) acetaminophen [Tylenol Extra Strength] 500 mg Tablet 1,000 mg PO UD MDD 3 GRAMS/24 HOURS PRN (Reason: Pain (Scale Score 7-10)) Rx Instructions: ONLY 2-3 X A WEEK. bismuth subsalicylate [Pepto-Bismol] 262 mg/15 mL Suspension 524 mg PO Q6H PRN (Reason: DIARRHEA/NAUSEA) alum-mag hydroxide-simeth 225-200-25 mg/5 mL Suspension 30 ml PO Q8H PRN (Reason: Acid Reflux) sucralfate 1 gram Tablet 1 g PO BID bisacodyl [Dulcolax (bisacodyl)] 10 mg Suppository 10 mg NM QPM PRN (Reason: Constipation) Rx Instructions: give day 3 on 9216-1297 shift, if no BM after MOM Fleet Enema 19-7 gram/118 mL Enema 197 ml NM QAM PRN (Reason: Constipation) Rx Instructions: if no BM after Dulcolax, administer on 1462-2840 shift. magnesium hydroxide 800 mg/5 mL Suspension 30 mg PO UD PRN (Reason: Constipation) Rx Instructions: give as needed; administer on 6154-8293 shift. Systane (PF) 0.4-0.3 % Dropperette 1 drp OPHTHALMIC (EYE) Q8H PRN (Reason: Dry Eyes) Menthol-Ascorbic Acid Lozenge 1 flo PO Q4H PRN (Reason: Sore Throat) erenumab-aooe 140 mg/mL auto-injector 140 mg subcut Q30D Rx Instructions: TAKES ON THE . oxycodone 5 mg Tablet 5 mg PO QID PRN (Reason: Pain) oxycodone 5 mg Tablet 10 mg PO QID PRN (Reason: Pain) Changed potassium chloride 20 mEq Tablet Extended Release 20 meq PO QAM Qty: 30 0RF Discontinued aspirin 81 mg Tablet,Chewable 81 mg PO QAM metoprolol tartrate 50 mg Tablet 50 mg PO BID Discharge Orders: Discharge Order (Routine); Ordered 01/03/23 Ordered By: Mariangel Johns Admission Data Admit Date/Time: 12/31/22 10:41 Attending Provider: Mariangel Johns Admit Provider: Craig Yee Primary Care Provider: [place] Other Providers: Aravind Guevara ; David Higuera Coding Level of Care Code HOSP INP/OBS DISCH >30 MIN Diagnoses COVID-19 U07.1 COPD (chronic obstructive pulmonary disease) J43.9 COPD type: emphysema Emphysema type: unspecified Chronic respiratory failure with hypoxia J96.11 PAD (peripheral artery disease) I73.9 Hematoma of arm S40.029A Acute blood loss anemia D62 Dry gangrene I96 Tr[address] Z93.0 Hyperlipemia E78.5 Hypertension I10 Hypertension type: essential hypertension Hypothyroidism E03.9 Hypothyroidism type: unspecified Angular cheilitis K13.0
[2023-01-03] MEDS: REMDESIVIR 100 MG in SODIUM CHLORIDE 0.9% 230 ML IV SCH (12:00)
[2023-01-03] MEDS: dexAMETHasone 6 MG in SYRINGE 0 ML IV SCH (12:09)
[2023-01-03] MEDS: TOPIRAMATE 50 MG TAB PO SCH ×2 (12:09)
--- NOTE | 2023-01-05 13:05 | Anesthesiology Progress Note ---
Date of Service January 05, 2023 Anesthesia Post Procedure Pain Intensity Right Foot: Pain Intensity: 0 Transfer of Care Handoff Completed per policy Notes Mental Status: alert / awake / arousable Patient Amnestic to Procedure: Yes Nausea / Vomiting: adequately controlled Pain: adequately controlled Airway Patency, RR, SpO2: stable & adequate BP & HR: stable & adequate Hydration State: stable & adequate Anesthetic Complications: no major complications apparent
== END 2023-01-03 15:39 | DRG 166 ==
LOC: 2E 06:45 → CC 06:45 → 2E 12-31 03:25 → SUATTDRO 12-31 10:41
PROC: CLB.AEU (2022-12-29 08:00)